=== PATIENT | female | born 1950 | race American Indian/Alaskan Native ===

== ENCOUNTER 2020-08-06 09:54 | Outpatient (REF) | payer MEDICARE, SELFPAY ==
[2020-08-06 14:44] LABS: Free T4 (Free Thyroxine) 1.14 ng/dL (0.71-1.85); Thyroid Stimulating Hormone 0.04 uIU/mL (0.32-4.0)
== END 2020-08-06 09:55 | disposition home or self-care (01) ==
LOC: HO.10HDL 09:54
PROVIDERS: Visit Provider Internal Medicine Endocrinology, Diabetes & Metabolism
DX: E89.0 Postprocedural hypothyroidism (principal)
CPT/HCPCS: 84439; 84443

== ENCOUNTER 2020-10-27 08:00 | Outpatient (REF) | payer MEDICARE, SELFPAY ==
[2020-10-27 10:57] LABS: Alanine Aminotransferase 22 U/L (0-31); Albumin Level 3.9 g/dL (3.5-5.0); Alkaline Phosphatase 65 U/L (39-117); Anion Gap 11 (12-20); Aspartate Amino Transferase 20 U/L (5-31); Bilirubin Total 0.7 mg/dL (0.0-1.0); Blood Urea Nitrogen 16 mg/dL (9-16); Calcium 8.9 mg/dL (8.4-10.2); Carbon Dioxide 31 mmol/L (22-29); Chloride 106 mmol/L (96-108); Estimated Glomerular Filt Rate > 60; Glucose Fasting 87 mg/dL (60-99); Potassium 4.1 mmol/L (3.3-5.1); Sodium 144 mmol/L (135-145); Total Protein 6.6 g/dL (6.5-8.0)
[2020-10-27 11:07] LABS: Free T4 (Free Thyroxine) 1.01 ng/dL (0.71-1.85); Thyroid Stimulating Hormone 0.22 uIU/mL (0.32-4.0)
[2020-10-27 11:18] LABS: Vitamin D 25-OH Total 36.2 ng/mL (>30)
[2020-11-02 08:16] LABS: N-Telopeptide 14 (see note); NTXCreaRU 27 mg/dL (20-275)
== END 2020-10-27 08:01 | disposition home or self-care (01) ==
LOC: HO.10HDL 08:00
PROVIDERS: Visit Provider Internal Medicine Endocrinology, Diabetes & Metabolism
DX: M81.0 Age-related osteoporosis without current pathological fracture (principal); E89.0 Postprocedural hypothyroidism; E21.0 Primary hyperparathyroidism; Z79.899 Other long term (current) drug therapy
CPT/HCPCS: 36415; 80053; 82306; 82523; 84439; 84443; 96402; 99212; J0897

== ENCOUNTER 2020-12-30 09:24 | Emergency (ER) | payer MEDICARE, SELFPAY ==
--- NOTE | ~2020-12-30 | XR_ITS ---
EXAMINATION: XR CHEST CLINICAL INFORMATION: Shortness of breath COMPARISON: Chest radiographs 08/03/2018, 07/25/2018 TECHNIQUE: Portable upright AP view of the chest was obtained. FINDINGS: The lungs are clear. There is no airspace consolidation or definite groundglass opacity. Mild coarsening bronchiolar markings lower zones similar to prior studies. The costophrenic sulci are clear. The heart is normal in size. The vascularity is normal. The hilar and mediastinal contours are unremarkable. Again, there is mild dextrocurvature thoracic spine and some degenerative changes spine. XR/XR chest 1V IMPRESSION: Unremarkable examination.
[2020-12-30 09:29] VITALS: BP 152/78; PULSE 71; RESP 18; TEMP 36.7; O2SAT 97; BMI 28.6
--- NOTE | 2020-12-30 09:33 | ED.ASTHMA ---
HPI - Asthma General Chief Complaint: Asthma Stated Complaint: SOB Time Seen by Provider: 12/30/20 09:33 Source: patient and RN notes reviewed Mode of arrival: ambulatory Limitations: no limitations History of Present Illness HPI Narrative: A 70-year-old female with a past medical history of asthma presenting to the ED with complaints of shortness of breath. Patient with a history of hypothyroidism and osteoporosis. She has a history of asthma, on Symbicort twice a day, rescue inhaler as well as nebulizers. Her symptoms started 2 days ago. Patient tried nebulizers without affect. Patient denies fever or chills. Patient received her 1st COVID vaccine 1 month ago and is awaiting for her 2nd vaccine at the end of the month. Patient reports that she has not been around anyone sick. Reports productive cough with white sputum. Occasional chest pain with deep cough. Denies any change in household products or items. Denies any seasonal allergy. Related Data Home Medications Medication Instructions Recorded Confirmed acetaminophen 500 mg tablet 1,000 mg PO Q6H PRN 10/27/20 10/27/20 albuterol sulfate mg INHALATION Q6H PRN 10/27/20 10/27/20 atorvastatin 40 mg tablet 40 mg PO DAILY 10/27/20 10/27/20 budesonide-formoterol HFA 160 2 puff PO BID 10/27/20 10/27/20 mcg-4.5 mcg/actuation aerosol inhaler cetirizine 10 mg tablet 10 mg PO DAILY PRN 10/27/20 10/27/20 citalopram 10 mg tablet 10 mg PO DAILY 10/27/20 10/27/20 clobetasol 0.05 % topical ointment g TOPICAL DAILY 10/27/20 10/27/20 famotidine 20 mg tablet 20 mg PO DAILY PRN 10/27/20 10/27/20 mirtazapine 30 mg tablet 30 mg PO BEDTIME 10/27/20 10/27/20 montelukast 10 mg tablet 10 mg PO DAILY 10/27/20 10/27/20 multivitamin 1 tab PO DAILY 10/27/20 10/27/20 naproxen 500 mg tablet 500 mg PO BID PRN 10/27/20 10/27/20 zolpidem 10 mg tablet 10 mg PO BEDTIME PRN 02/03/21 02/03/21 Previous Rx's Medication Instructions Recorded levothyroxine 75 mcg tablet 75 mcg PO QAM 90 Days #90 tab 10/27/20 azithromycin 250 mg PO DAILY 4 Days #4 tab 12/30/20 prednisone 40 mg PO DAILY 5 Days #10 tab 12/30/20 Allergies Allergy/AdvReac Type Severity Reaction Status Date / Time morphine [MORPHINE] Allergy Unknown RASH Unverified 06/10/20 16:59 Review of Systems Review of Systems: Constitutional : No Weight loss, No Fever, No Chills, No Night Sweats, No Fatigue, No Malaise ENT/Mouth : No Hearing loss, No Ear Pain, No Nasal Congestion, No Sinus Pain, No Hoarseness, No sore throat, No Rhinorrhea, No Swallowing Difficulty Eyes: No Eye Pain, No Swelling, No Redness, No Foreign Body, No Discharge, No Vision Changes Cardiovascular : No Chest Pain, No SOB, No Dyspnea on Exertion, No Orthopnea, No Edema, No Palpitations Respiratory : pos Cough, white Sputum, Wheezing, No Smoke Exposure, Mild Dyspnea Gastrointestinal : No Nausea, No Vomiting, No Diarrhea, No Constipation, No abdominal Pain, No Hematochezia, No Melena Genitourinary : no irregular bleeding, No Dysuria, No Urinary Frequency, No Hematuria, No Urinary Incontinence, No Urgency, No Flank Pain, No Urinary Flow Changes, No Hesitancy Musculoskeletal : No joint pain, No Myalgias, No Joint Swelling Skin : No Skin Lesions, No rash Neuro : No Weakness, No Numbness, No Paresthesias, No Loss of Consciousness, No Dizziness, No Headache Psych : No Anxiety/Panic, No Depression, No SI/HI/AH/VH, No Social Issues, Heme/Lymph: No Bruising, No Bleeding,No Lymphadenopathy Endocrine : No Polyuria, No Polydipsia, No Temperature Intolerance REPLACED BY [facility] Past Medical History Medical History (Updated 12/30/20 @ 12:12 by GILMER Kaur) Postablative hypothyroidism Primary hyperparathyroidism Surgical History (Updated 10/27/20 @ 09:59 by Belen Hopkins LPN) History of carpal tunnel release of both wrists Hx of cataract removal with insertion of prosthetic lens Hx of cholecystectomy Hx of hysterectomy Hx of lithotripsy Social History Social History (Updated 10/27/20 @ 09:59 by Belen J [place], PERFORMANCE INSTRUCTOR) Alcohol intake: never Smoking Status: Never smoker Use of substances other than those prescribed or required for medical reasons: No Advance Directives: No Advance Directives Information Provided: No Physical Exam Vital Signs: Vital Signs: Last Vital Signs Temp 98.4 F 12/30/20 10:08 Pulse 71 12/30/20 11:23 Resp 18 12/30/20 10:08 BP 129/59 L 12/30/20 10:08 Pulse Ox 94 12/30/20 10:08 Body Mass Index 28.6 Const: General: cooperative, healthy appearing and comfortable Nutritional Appearance: average body habitus Orientation/consciousness: patient oriented x3 Limitations: no limitations HENMT: Head: Yes normal to inspection Ears: hearing grossly normal bilaterally General nose exam: Normal external nose present Face and sinus: Yes normal facial exam Mouth: Normal oral and palatal mucosa present Throat: Yes posterior oropharynx normal Eyes: General: appearance normal, both eyes and all related structures Eyelids: Yes eyelids normal Conjunctivae: conjunctivae normal Sclerae: sclerae normal Pupils: Equal, round and reactive pupils present Neck: Neck: Yes normal visual inspection, Yes full ROM, Yes no lymphadenopathy, Yes trachea midline and Yes supple Thyroid: Thyroid normal Lymphatic: no lymphadenopathy noted Chest: Chest palpation & inspection: normal inspection of the chest Resp: Effort & Inspection: normal respiratory effort, able to speak in complete sentences and no respiratory distress Auscultation: wheezes (Bilateral throughout) Cardio: Jugular venous distension: no JVD Rate: regular rate Rhythm: regular rhythm Heart sounds: S1 normal heart sound present, S2 normal heart sound present, no gallops, no murmurs and no rubs Peripheral pulses: Peripheral pulses 2+ throughout GI: Inspection: Yes normal to inspection and No distended Palpation (GI): No hepatosplenomegaly present and No Rebound tenderness present Percussion: Yes normal to percussion Auscultation: normal bowel sounds Back/Spine/Pelvis: Cervical Spine: cervical ROM normal and No cervical muscular tenderness Thoracic/Lumbar Spine: thoracic and lumbar spine normal to inspection Skin: General skin exam: no rashes or lesions noted, elasticity normal and turgor normal Neuro: General: patient oriented x3 Cranial nerves: Yes Equal, round and reactive pupils present Extrem: General: Yes normal to inspection, Yes full ROM and Yes capillary refill normal Psych: Appearance: grossly normal Mental Status: mental status grossly normal Speech and movement: Normal speech and movement present Affect: normal affect Attitude: cooperative Thought process: Normal thought process present Insight: Good insight present (Psych) Course Course Course Narrative: 0945 AM. 70-year-old female examined by me at the bedside. Mild respiratory distress with expiratory wheeze. Productive cough with white sputum. Patient has a history of asthma. Reports that her symptoms have been going on for 2 days, no improvement after p.r.n. nebulizer. Complaints of chest pain with cough. I will order CBC, BMP, chest x-ray, Solu-Medrol and updraft. Reevaluation(s) Time: 10:16 Reevaluation #2: Patient reports to be feeling a little better. Mild right lower low wheeze. Will order another albuterol updraft. Chest x-ray unremarkable. Negative for leukocytosis. Lab work reviewed. Time: 11:41 Reevaluation #3: Patient re-evaluated at the bedside. Reports to be feeling much better. Lung sounds clear. Screen for influenza type A and B, RSV, COVID all negative. Patient wants to go home. Will start her on Z-Lux and prednisone. Patient is agreeable to plan of care. MDM - Asthma Lab Data Result diagrams: 12/30/20 10:22 12/30/20 10:22 Labs: Lab Results 12/30/20 12/30/20 12/30/20 Range/Units 10:22 10:22 10:22 WBC 5.5 (4.8-10.8) X10*3/uL RBC 3.70 L (4.20-5.50) X10*6/uL Hgb 12.1 (12.0-16.0) g/dl Hct 36.9 L (37-47) % MCV 99.7 H (80-98) fL MCH 32.7 (27.0-33.0) pg MCHC 32.8 (31.0-35.0) g/dl RDW 13.9 (11.0-16.0) % Plt Count 217 (160-400) X10*3/uL MPV 10.1 (9.4-12.3) fL Immature Gran % (Auto) 0.2 (0.0-0.4) % Neut % (Auto) 50.1 (45-73) % Lymph % (Auto) 33.8 (20-40) % [place] % (Auto) 7.7 (2-11) % Eos % (Auto) 7.5 H (0-4) % Baso % (Auto) 0.7 (0-2) % Lymph # (Auto) 1.9 (1.2-4.9) X10*3/uL [place] # (Auto) 0.4 (0.1-1.2) X10*3/uL Eos # (Auto) 0.4 (0.0-0.4) X10*3/uL Baso # (Auto) 0.0 (0.0-0.2) X10*3/uL Abs Immat Gran (auto) 0.01 (0.00-0.03) X10*3/uL Absolute Neuts (auto) 2.7 (2.0-8.3) X10*3/uL Absolute Nucleated RBC 0.000 (0.0-0.012) X10*3/uL Nucleated RBC % (auto) 0.0 (0.0-0.2) /100WBC Hold Blue Top SEE NOTE Sodium 145 (135-145) mmol/L Potassium 4.3 (3.3-5.1) mmol/L Chloride 109 H (96-108) mmol/L Carbon Dioxide 30 H (22-29) mmol/L Anion Gap 10 L (12-20) BUN 14 (9-16) mg/dL Creatinine 0.79 (0.5-1.4) mg/dL Estim Creat Clear Calc 52.4 Estimated GFR > 60 Random Glucose 95 (60-115) mg/dL Calcium 9.5 D (8.4-10.2) mg/dL Troponin I High Sens (<3.5-17.0) ng/L Coronavirus (PCR) (Negative) Influenza Type A (PCR) (Negative) Influenza Type B (PCR) (Negative) RSV RNA Qual (PCR) (Negative) 12/30/20 12/30/20 Range/Units 10:22 10:29 WBC (4.8-10.8) X10*3/uL RBC (4.20-5.50) X10*6/uL Hgb (12.0-16.0) g/dl Hct (37-47) % MCV (80-98) fL MCH (27.0-33.0) pg MCHC (31.0-35.0) g/dl RDW (11.0-16.0) % Plt Count (160-400) X10*3/uL MPV (9.4-12.3) fL Immature Gran % (Auto) (0.0-0.4) % Neut % (Auto) (45-73) % Lymph % (Auto) (20-40) % [place] % (Auto) (2-11) % Eos % (Auto) (0-4) % Baso % (Auto) (0-2) % Lymph # (Auto) (1.2-4.9) X10*3/uL [place] # (Auto) (0.1-1.2) X10*3/uL Eos # (Auto) (0.0-0.4) X10*3/uL Baso # (Auto) (0.0-0.2) X10*3/uL Abs Immat Gran (auto) (0.00-0.03) X10*3/uL Absolute Neuts (auto) (2.0-8.3) X10*3/uL Absolute Nucleated RBC (0.0-0.012) X10*3/uL Nucleated RBC % (auto) (0.0-0.2) /100WBC Hold Blue Top Sodium (135-145) mmol/L Potassium (3.3-5.1) mmol/L Chloride (96-108) mmol/L Carbon Dioxide (22-29) mmol/L Anion Gap (12-20) BUN (9-16) mg/dL Creatinine (0.5-1.4) mg/dL Estim Creat Clear Calc Estimated GFR Random Glucose (60-115) mg/dL Calcium (8.4-10.2) mg/dL Troponin I High Sens < 3.5 (<3.5-17.0) ng/L Coronavirus (PCR) NEGATIVE (Negative) Influenza Type A (PCR) NEGATIVE (Negative) Influenza Type B (PCR) NEGATIVE (Negative) RSV RNA Qual (PCR) NEGATIVE (Negative) Discharge Plan Discharge Clinical Impression: Acute bronchospasm, Bronchitis with bronchospasm Asthma with acute exacerbation Qualifiers: Asthma severity: mild Asthma persistence: unspecified Qualified Code(s): J45.901 - Unspecified asthma with (acute) exacerbation Patient Disposition: Home, Self-Care Instructions: Asthma (ED), Acute Bronchitis (ED), Bronchospasm (ED) Prescriptions: New prednisone 20 mg tablet 40 mg PO DAILY 5 Days Qty: 10 RF: 0 azithromycin 250 mg tablet 250 mg PO DAILY 4 Days Qty: 4 RF: 0 No Action zolpidem 10 mg tablet 10 mg PO BEDTIME PRNRF: 0 mirtazapine 30 mg tablet 30 mg PO BEDTIME RF: 0 naproxen 500 mg tablet 500 mg PO BID PRN (Reason: pain) RF: 0 famotidine 20 mg tablet 20 mg PO DAILY PRNRF: 0 citalopram 10 mg tablet 10 mg PO DAILY RF: 0 albuterol sulfate 2.5 mg /3 mL (0.083 %) solution for nebulization inhalation Q6H PRN (Reason: asthma) RF: 0 atorvastatin 40 mg tablet 40 mg PO DAILY RF: 0 montelukast 10 mg tablet 10 mg PO DAILY RF: 0 cetirizine 10 mg tablet 10 mg PO DAILY PRNRF: 0 multivitamin Tablet 1 tab PO DAILY RF: 0 acetaminophen 500 mg tablet 1,000 mg PO Q6H PRN (Reason: pain) RF: 0 budesonide-formoterol 160-4.5 mcg/actuation HFA aerosol inhaler 2 puff PO BID RF: 0 clobetasol 0.05 % ointment topical DAILY RF: 0 levothyroxine 75 mcg tablet 75 mcg PO QAM 90 Days Qty: 90 RF: 2 Referrals: Cliff Harman NP [Primary Care Provider] - 2 days Interventions: ED Discharge Assessment Last Done: 12/30/20 12:14 Discharge Date/Time: 12/30/20 12:17 Print Language: Serbian
--- NOTE | 2020-12-30 09:42 | ECG_ITS ---
Test Reason : ASTHMA Blood Pressure : / mmHG Vent. Rate : 065 BPM Atrial Rate : 065 BPM P-R Int : 140 ms QRS Dur : 088 ms QT Int : 394 ms P-R-T Axes : 046 005 018 degrees QTc Int : 409 ms Normal sinus rhythm Nonspecific T wave abnormality Abnormal ECG When compared with ECG of 03-AUG-2018 11:00, No significant change was found Referred By: Kaylah Pat Electronically Signed By:MELE ROEILLY
[2020-12-30] MEDS: Albuterol Sulfate (0.083%) 2.5 MG/3 ML VIAL.NEB 5 MG INHALE ×2 (10:07→11:23)
[2020-12-30 10:08] VITALS: BP 129/59; PULSE 62; PULSE 66; RESP 18; TEMP 36.9; O2SAT 94; O2SAT 97
[2020-12-30 10:28] LABS: MANUAL DIFF FLAG NO
[2020-12-30 10:31] LABS: Basophils Percent Auto 0.7 % (0-2); Eosinophils Absolute Auto 0.4 X10*3/uL (0.0-0.4); Eosinophils Percent Auto 7.5 % (0-4); Hematocrit 36.9 % (37-47); Hemoglobin 12.1 g/dl (12.0-16.0); Imm Gran Abs Auto 0.01 X10*3/uL (0.00-0.03); Imm Gran Pct Auto 0.2 % (0.0-0.4); Lymphocytes Absolute Auto 1.9 X10*3/uL (1.2-4.9); Lymphocytes Percent Auto 33.8 % (20-40); Mean Corpuscular HGB Conc 32.8 g/dl (31.0-35.0); Mean Corpuscular Hemoglobin 32.7 pg (27.0-33.0); Mean Corpuscular Volume 99.7 fL (80-98); Mean Platelet Volume 10.1 fL (9.4-12.3); Monocytes Absolute Auto 0.4 X10*3/uL (0.1-1.2); Monocytes Percent Auto 7.7 % (2-11); Neutrophils Absolute Auto 2.7 X10*3/uL (2.0-8.3); Neutrophils Percent Auto 50.1 % (45-73); Platelet Count 217 X10*3/uL (160-400); Red Cell Distribution Width 13.9 % (11.0-16.0); White Blood Count 5.5 X10*3/uL (4.8-10.8)
[2020-12-30] MEDS: methylPREDNISolone Sod Succ 125 MG/2 ML VIAL IVPUSH (10:35)
[2020-12-30 10:53] LABS: Anion Gap 10 (12-20); Blood Urea Nitrogen 14 mg/dL (9-16); Calcium 9.5 mg/dL (8.4-10.2); Carbon Dioxide 30 mmol/L (22-29); Chloride 109 mmol/L (96-108); Creatinine Clr Calc Pharmacy 52.4; Estimated Glomerular Filt Rate > 60; Glucose Random 95 mg/dL (60-115); Potassium 4.3 mmol/L (3.3-5.1); Sodium 145 mmol/L (135-145)
[2020-12-30 10:56] LABS: Troponin-I High Sensitivity < 3.5 ng/L (<3.5-17.0)
[2020-12-30 11:23] VITALS: PULSE 71; O2SAT 93
[2020-12-30 11:42] LABS: Influenza A PCR NEGATIVE (Negative); Influenza B PCR NEGATIVE (Negative); Resp Syncy Virus RNA Qual PCR NEGATIVE (Negative); SARS COV2 PCR INHOUSE NEGATIVE (Negative)
[2020-12-30] MEDS: Azithromycin 500 MG TABLET PO (12:06)
--- NOTE | 2020-12-30 12:08 | PC.NURSE ---
s/p ambulation o2 sat ra 95%
== END 2020-12-30 12:17 | disposition home or self-care (01) ==
PROVIDERS: Nurse Practitioner Family; Emergency Provider Emergency Medicine; PCP Nurse Practitioner Family
DX: J20.9 Acute bronchitis, unspecified (principal); J45.30 Mild persistent asthma, uncomplicated; R07.89 Other chest pain; Z20.822 Contact with and (suspected) exposure to COVID-19
CPT/HCPCS: 0241U; 36415; 71045; 80048; 84484; 85025; 93005; 94640; 96374; 99284; J2930

== ENCOUNTER 2021-03-03 10:15 | Outpatient (REF) | payer MEDICARE, SELFPAY ==
[2021-03-03 12:33] LABS: Alanine Aminotransferase 22 U/L (0-31); Albumin Level 4.2 g/dL (3.5-5.0); Alkaline Phosphatase 68 U/L (39-117); Aspartate Amino Transferase 20 U/L (5-31); Bilirubin Total 0.7 mg/dL (0.0-1.0); Blood Urea Nitrogen 15 mg/dL (9-16); Calcium 9.1 mg/dL (8.4-10.2); Estimated Glomerular Filt Rate > 60; Glucose Random 89 mg/dL (60-115); Total Protein 6.9 g/dL (6.5-8.0)
[2021-03-03 12:54] LABS: Free T4 (Free Thyroxine) 1.12 ng/dL (0.71-1.85); Thyroid Stimulating Hormone 0.04 uIU/mL (0.32-4.0); Vitamin D 25-OH Total 40.7 ng/mL (>30)
[2021-03-03 13:27] LABS: Anion Gap 13 (12-20); Carbon Dioxide 31 mmol/L (22-29); Chloride 106 mmol/L (96-108); Potassium 4.5 mmol/L (3.3-5.1); Sodium 145 mmol/L (135-145)
[2021-03-04 09:27] LABS: Calcium (PTHI) 9.5 mg/dL (8.6-10.4); PTHI 27 pg/mL (14-64)
[2021-03-06 18:11] LABS: Alkaline Phosphatase Bone 7.5 mcg/L (5.6-29.0)
[2021-03-08 07:37] LABS: N-Telopeptide 20 (see note); NTXCreaRU 124 mg/dL (20-275)
== END 2021-03-03 10:16 | disposition home or self-care (01) ==
LOC: HO.LAB 10:15
PROVIDERS: PCP Nurse Practitioner Family; Visit Provider Internal Medicine Endocrinology, Diabetes & Metabolism
DX: M81.0 Age-related osteoporosis without current pathological fracture (principal); E21.0 Primary hyperparathyroidism; E89.0 Postprocedural hypothyroidism
CPT/HCPCS: 36415; 80053; 82306; 82340; 82523; 83735; 83970; 84075; 84100; 84439; 84443; 99212

== ENCOUNTER 2021-03-05 10:13 | Outpatient (REF) | payer MEDICARE, SELFPAY ==
[2021-03-05 11:01] LABS: Total Volume 24 Hour Urine 1350 mL
[2021-03-05 11:10] LABS: Creatinine, 24Hr Urine 1.3 G/Day (1.0-2.0); Creatinine, mg/dL 92.72
== END 2021-03-05 10:14 | disposition home or self-care (01) ==
LOC: HO.LNP 10:13
PROVIDERS: Visit Provider Internal Medicine Endocrinology, Diabetes & Metabolism
DX: M81.0 Age-related osteoporosis without current pathological fracture (principal)
CPT/HCPCS: 82570

== ENCOUNTER 2021-05-10 09:34 | Outpatient (REF) | payer MEDICARE, SELFPAY ==
--- NOTE | ~2021-05-10 | MM_ITS ---
EXAMINATION: BONE DENSITOMETRY CLINICAL INDICATION: Age-related osteoporosis without current pathological fracture. COMPARISON: Previous BD dated 05/09/2019 and baseline BD dated 12/22/2009. This is the patient's baseline examination for the forearm radius 33%. TECHNIQUE: Using a [employer] DXA System (software version: 13.1) manufactured by [employer], dual-energy x-ray absorptiometry was performed of the lumbar spine and left forearm radius 33%. The images are of good technical quality. Summary results are attached. FINDINGS: AP SPINE L1-L4: Current: BMD 0.768 g/cm2, Z-score -1.9, T-score -3.4, osteoporosis, 4.5% increase from previous, 5.4% decrease from baseline (<5% change is not significant). Prior: BMD 0.735 g/cm2. Baseline: BMD 0.812 g/cm2. LEFT FEMUR, NECK: Current: BMD 0.687 g/cm2, Z-score -0.9, T-score -2.5, osteoporosis. Prior: BMD 0.658 g/cm2. Baseline: BMD 0.707 g/cm2. LEFT FEMUR, TOTAL: Current: BMD 0.752 g/cm2, Z-score -0.6, T-score -2.0, osteopenia, 4.6% increase from previous, 8.8% decrease from baseline (<5% change is not significant). Prior: BMD 0.719 g/cm2. Baseline: BMD 0.825 g/cm2. LEFT FOREARM RADIUS 33%: BMD 0.586 g/cm2, Z-score -1.3, T-score -3.3, osteoporosis. Prior: Not previously measured. IDENTIFIED RISK FACTORS: Rheumatoid arthritis, osteoporosis, hyperparathyroidism, height loss, low calcium intake, family history (parental hip fracture), history of fracture (adult). Early menopause, secondary osteoporosis, hysterectomy, bilateral oophorectomy. HISTORY OF FRACTURE: Other. MEDICATIONS: Calcium or multivitamin. MM/XR DEXA appendicular skeleton IMPRESSION: 1. DIAGNOSIS: Osteoporosis based on the lowest T-score value of -3.4 in the lumbar spine applying World Health Organization criteria. 2. 10-YEAR FRACTURE RISK PREDICTION, FRAX: Major osteoporotic fracture (clinical spine, forearm, hip or shoulder) 22.6%. Hip fracture 10.5%. 3. Treatment Recommendations: NOF guidelines recommend consideration for treatment in postmenopausal women and men age 50 and older presenting with the following: -A hip or vertebral (clinical or morphometric) fracture. -T-score less than or equal to -2.5 at the femoral neck or spine after appropriate evaluation to exclude secondary causes. -Low bone mass at the hip or spine and a 10-year fracture probability by FRAX of greater than or equal to 3% for hip fracture or greater than or equal to 20% for major osteoporotic fracture based on the [place] adapted WHO algorithm. 4. Other Recommendations: All treatment decisions require clinical judgment and consideration of individual patient factors, including patient preferences, comorbidities, previous drug use, risk factors not captured in the FRAX model (e.g. frailty, falls, vitamin D deficiency, increased bone turnover, interval significant decline in bone density) and possible under or overestimation of fracture risk by FRAX. Additional medical evaluation for secondary cause of low bone mineral density may be appropriate. FUTURE SCAN RECOMMENDATION: People with diagnosed cases of osteoporosis or at high risk for fracture should have regular bone mineral density tests. For patients eligible for Medicare, routine testing is allowed once every 2 years. The testing frequency can be increased to one year for patients who have rapidly progressing disease, those who are receiving or discontinuing medical therapy to restore bone mass, or have additional risk factors.
== END 2021-05-10 09:35 | disposition home or self-care (01) ==
LOC: HO.MAMMO 09:34
PROVIDERS: Visit Provider Internal Medicine Endocrinology, Diabetes & Metabolism
DX: Z13.820 Encounter for screening for osteoporosis (principal); M81.0 Age-related osteoporosis without current pathological fracture; M06.9 Rheumatoid arthritis, unspecified; E21.3 Hyperparathyroidism, unspecified; Z87.81 Personal history of (healed) traumatic fracture; Z90.722 Acquired absence of ovaries, bilateral; Z79.899 Other long term (current) drug therapy
CPT/HCPCS: 77081

== ENCOUNTER → 2021-05-23 10:43 | Outpatient (BNVA) | payer MEDICARE, SELFPAY | PROVIDERS: Visit Provider Internal Medicine | DX: M81.0 Age-related osteoporosis without current pathological fracture (principal); E21.0 Primary hyperparathyroidism; E05.90 Thyrotoxicosis, unspecified without thyrotoxic crisis or storm; E55.9 Vitamin D deficiency, unspecified; E89.0 Postprocedural hypothyroidism; Z88.5 Allergy status to narcotic agent; Z79.899 Other long term (current) drug therapy | CPT/HCPCS: 99212 ==

== ENCOUNTER 2021-05-23 11:30 | Outpatient (REF) | payer MEDICARE, SELFPAY ==
[2021-05-23 14:06] LABS: Alanine Aminotransferase 25 U/L (0-31); Albumin Level 4.4 g/dL (3.5-5.0); Alkaline Phosphatase 87 U/L (39-117); Anion Gap 15 (12-20); Aspartate Amino Transferase 23 U/L (5-31); Blood Urea Nitrogen 13 mg/dL (9-16); Calcium 9.7 mg/dL (8.4-10.2); Carbon Dioxide 30 mmol/L (22-29); Chloride 103 mmol/L (96-108); Estimated Glomerular Filt Rate > 60; Glucose Random 88 mg/dL (60-115); Phosphorus 3.4 mg/dL (2.7-4.5); Potassium 4.3 mmol/L (3.3-5.1); Sodium 144 mmol/L (135-145); Total Protein 7.4 g/dL (6.5-8.0)
[2021-05-23 14:27] LABS: Free T4 (Free Thyroxine) 0.86 ng/dL (0.71-1.85); Thyroid Stimulating Hormone 1.21 uIU/mL (0.32-4.0)
[2021-05-24 16:55] LABS: Calcium, Ionized 5.1 mg/dL (4.8-5.6)
[2021-05-24 21:46] LABS: Prot Elec - Albumin 3.9 g/dL (3.8-4.8); Prot Elec - Alpha1 0.3 g/dL (0.2-0.3); Prot Elec - Alpha2 0.9 g/dL (0.5-0.9); Prot Elec - Beta 1 0.5 g/dL (0.4-0.6); Prot Elec - Beta 2 0.5 g/dL (0.2-0.5); Prot Elec - Total Protein 7.2 g/dL (6.1-8.1)
[2021-05-26 14:06] LABS: Alkaline Phosphatase Bone 9.8 mcg/L (5.6-29.0)
[2021-05-26 16:56] LABS: PTHI 17 pg/mL (14-64)
== END 2021-05-23 11:31 | disposition home or self-care (01) ==
LOC: HO.10HDL 11:30
PROVIDERS: Visit Provider Internal Medicine
DX: M81.0 Age-related osteoporosis without current pathological fracture (principal)
CPT/HCPCS: 36415; 80053; 82330; 83970; 84075; 84100; 84165; 84439; 84443

== ENCOUNTER 2021-05-24 19:24 | Emergency (ER) | payer MEDICARE, SELFPAY ==
[2021-05-24 19:30] VITALS: BP 139/87; PULSE 65; RESP 16; TEMP 36.6; O2SAT 98; BMI 30.1
--- NOTE | 2021-05-24 20:32 | ED_ITS ---
HPI - General Adult General Chief complaint: General Medical Stated complaint: dizziness, high bp Time Seen by Provider: 05/24/21 20:32 Source: patient and family Mode of arrival: ambulatory Limitations: no limitations History of Present Illness HPI narrative: Patient With history of hiatal hernia status post cholecystectomy came to the ER for upper abdominal pain for last few days patient does get similar pain to 3 times a year on PPI without much relief feel nauseated had previous endoscopy which showed hiatal hernia and gastritis. Patient checked her sugar was 72 felt dizzy at home also patient complaining of diarrhea 3-4 times a day since yesterday Related Data Home Medications Medication Instructions Recorded Confirmed acetaminophen 500 mg tablet 1,000 mg PO Q6H PRN 10/27/20 05/23/21 albuterol sulfate mg INHALATION Q6H PRN 10/27/20 05/23/21 atorvastatin 40 mg tablet 40 mg PO DAILY 10/27/20 05/23/21 budesonide-formoterol HFA 160 2 puff PO BID 10/27/20 05/23/21 mcg-4.5 mcg/actuation aerosol inhaler cetirizine 10 mg tablet 10 mg PO DAILY PRN 10/27/20 05/23/21 citalopram 10 mg tablet 10 mg PO DAILY 10/27/20 05/23/21 clobetasol 0.05 % topical ointment g TOPICAL DAILY 10/27/20 05/23/21 famotidine 20 mg tablet 20 mg PO DAILY PRN 10/27/20 05/23/21 mirtazapine 30 mg tablet 30 mg PO BEDTIME 10/27/20 05/23/21 montelukast 10 mg tablet 10 mg PO DAILY 10/27/20 05/23/21 multivitamin 1 tab PO DAILY 10/27/20 05/23/21 naproxen 500 mg tablet 500 mg PO BID PRN 10/27/20 05/23/21 zolpidem 10 mg tablet 10 mg PO BEDTIME PRN 10/27/20 05/23/21 Previous Rx's Medication Instructions Recorded calcium citrate 500 mg PO BID 90 Days #360 tab 03/03/21 levothyroxine 50 mcg tablet 50 mcg PO DAILY 90 Days #90 tab 03/03/21 sucralfate 1 gram tablet 1 g PO TID #60 tab 05/24/21 Allergies Allergy/AdvReac Type Severity Reaction Status Date / Time morphine [MORPHINE] Allergy Unknown RASH Verified 05/23/21 11:08 Review of Systems Review of Systems: Yes all other systems are reviewed and are negative [facility] Past Medical History Medical History Hyperthyroidism Postablative hypothyroidism Primary hyperparathyroidism Vitamin D deficiency Surgical History History of carpal tunnel release of both wrists Hx of cataract removal with insertion of prosthetic lens Hx of cholecystectomy Hx of hysterectomy Hx of lithotripsy S/P subtotal parathyroidectomy Family History Family History Father No problems noted. Mother No problems noted. Social History Social History Alcohol intake: never Patient Tobacco Use Status: Never used Tobacco Advance Directives: No Advance Directives Information Provided: No Physical Exam Vital Signs: Vital Signs: Last Vital Signs Temp 98.5 F 05/24/21 20:34 Pulse 63 05/24/21 22:00 Resp 18 05/24/21 22:00 BP 149/81 H 05/24/21 20:34 Pulse Ox 96 05/24/21 22:00 Body Mass Index 30.1 Appearance: Alert. Oriented X3. No acute distress. Eyes: PERRLA, No Nystagmus ENT: Pharynx normal. Oral Mucosa moist Neck: Normal inspection. Neck supple. CVS: Normal heart rate and rhythm. Pulses normal. Respiratory: No respiratory distress. Equal air entry bilateral, no wheezing/rales/rhonchi Abdomen: Soft mild epigastric tenderness Bowel sounds are present, no mass palpable, no CVA tenderness Skin: Skin warm and dry. Normal skin color. Normal skin turgor. Extremities: No lower extremity edema. No calf tenderness Neuro: Oriented X 3. Medical Decision Making MDM Narrative Medical decision making narrative: Patient gastritis with recurrent abdominal pain came with similar pain in the epigastric area with nausea and diarrhea feeling much better now after IV fluids and Pepcid will discharge patient home Lab Data Lab results reviewed: Yes I reviewed the patient's lab results. Result diagrams: 05/24/21 20:46 05/24/21 20:46 Labs: Lab Results 05/24/21 05/24/21 05/24/21 Range/Units 19:38 20:46 20:46 WBC 6.4 (4.8-10.8) X10*3/uL RBC 4.17 L (4.20-5.50) X10*6/uL Hgb 13.4 (12.0-16.0) g/dl Hct 41.0 (37-47) % MCV 98.3 H (80-98) fL MCH 32.1 (27.0-33.0) pg MCHC 32.7 (31.0-35.0) g/dl RDW 14.0 (11.0-16.0) % Plt Count 229 (160-400) X10*3/uL MPV 9.8 (9.4-12.3) fL Immature Gran % (Auto) 0.3 (0.0-0.4) % Neut % (Auto) 53.4 (45-73) % Lymph % (Auto) 32.1 (20-40) % [place] % (Auto) 10.3 (2-11) % Eos % (Auto) 3.4 (0-4) % Baso % (Auto) 0.5 (0-2) % Lymph # (Auto) 2.1 (1.2-4.9) X10*3/uL [place] # (Auto) 0.7 (0.1-1.2) X10*3/uL Eos # (Auto) 0.2 (0.0-0.4) X10*3/uL Baso # (Auto) 0.0 (0.0-0.2) X10*3/uL Abs Immat Gran (auto) 0.02 (0.00-0.03) X10*3/uL Absolute Neuts (auto) 3.4 (2.0-8.3) X10*3/uL Absolute Nucleated RBC 0.000 (0.0-0.012) X10*3/uL Nucleated RBC % (auto) 0.0 (0.0-0.2) /100WBC Sodium 143 (135-145) mmol/L Potassium 4.8 (3.3-5.1) mmol/L Chloride 105 (96-108) mmol/L Carbon Dioxide 29 (22-29) mmol/L Anion Gap 14 (12-20) BUN 18 H (9-16) mg/dL Creatinine 0.89 (0.5-1.4) mg/dL Estim Creat Clear Calc 47.7 Estimated GFR > 60 POC Glucose 80 (60-115) mg/dL Random Glucose 76 (60-115) mg/dL Calcium 9.7 (8.4-10.2) mg/dL Total Bilirubin 0.8 (0.0-1.0) mg/dL AST 34 H D (5-31) U/L ALT 25 (0-31) U/L Alkaline Phosphatase 81 (39-117) U/L Total Protein 7.6 (6.5-8.0) g/dL Albumin 4.3 (3.5-5.0) g/dL Lipase (8-78) U/L Urine Color Urine Appearance Urine pH (5.0-8.0) Ur Specific [place] (1.005-1.025) Urine Protein (NEG-TRACE) MG/DL Urine Glucose (UA) (NEG) MG/DL Urine Ketones (NEG) MG/DL Urine Blood (NEG) Urine Nitrite (NEG) Ur Leukocyte Esterase (NEG) Urine RBC (0) /HPF Urine WBC (0-4) /HPF Ur Squamous Epith Cells /LPF Ur Renal Epithelial Cell /LPF Urine Bacteria /LPF 05/24/21 05/24/21 Range/Units 20:46 22:20 WBC (4.8-10.8) X10*3/uL RBC (4.20-5.50) X10*6/uL Hgb (12.0-16.0) g/dl Hct (37-47) % MCV (80-98) fL MCH (27.0-33.0) pg MCHC (31.0-35.0) g/dl RDW (11.0-16.0) % Plt Count (160-400) X10*3/uL MPV (9.4-12.3) fL Immature Gran % (Auto) (0.0-0.4) % Neut % (Auto) (45-73) % Lymph % (Auto) (20-40) % [place] % (Auto) (2-11) % Eos % (Auto) (0-4) % Baso % (Auto) (0-2) % Lymph # (Auto) (1.2-4.9) X10*3/uL [place] # (Auto) (0.1-1.2) X10*3/uL Eos # (Auto) (0.0-0.4) X10*3/uL Baso # (Auto) (0.0-0.2) X10*3/uL Abs Immat Gran (auto) (0.00-0.03) X10*3/uL Absolute Neuts (auto) (2.0-8.3) X10*3/uL Absolute Nucleated RBC (0.0-0.012) X10*3/uL Nucleated RBC % (auto) (0.0-0.2) /100WBC Sodium (135-145) mmol/L Potassium (3.3-5.1) mmol/L Chloride (96-108) mmol/L Carbon Dioxide (22-29) mmol/L Anion Gap (12-20) BUN (9-16) mg/dL Creatinine (0.5-1.4) mg/dL Estim Creat Clear Calc Estimated GFR POC Glucose (60-115) mg/dL Random Glucose (60-115) mg/dL Calcium (8.4-10.2) mg/dL Total Bilirubin (0.0-1.0) mg/dL AST (5-31) U/L ALT (0-31) U/L Alkaline Phosphatase (39-117) U/L Total Protein (6.5-8.0) g/dL Albumin (3.5-5.0) g/dL Lipase 58 (8-78) U/L Urine Color YELLOW Urine Appearance CLEAR Urine pH 6.0 (5.0-8.0) Ur Specific [place] <= 1.005 (1.005-1.025) Urine Protein NEG (NEG-TRACE) MG/DL Urine Glucose (UA) NEG (NEG) MG/DL Urine Ketones NEG (NEG) MG/DL Urine Blood NEG (NEG) Urine Nitrite NEG (NEG) Ur Leukocyte Esterase TRACE H (NEG) Urine RBC 0-2 (0) /HPF Urine WBC 1-4 (0-4) /HPF Ur Squamous Epith Cells TRACE /LPF Ur Renal Epithelial Cell TRACE /LPF Urine Bacteria TRACE /LPF Discharge Plan Discharge Clinical Impression: Chronic GERD Patient Disposition: Home, Self-Care Instructions: Gastroesophageal Reflux Disease (ED) Additional Instructions: continue taking your medication as prescribed by your PCP and follow up with route returner take sucralfate 1 tab 1 hr prior to meals Prescriptions: New sucralfate 1 gram tablet 1 g PO TID Qty: 60 RF: 0 No Action levothyroxine 50 mcg tablet 50 mcg PO DAILY 90 Days Qty: 90 RF: 3 zolpidem 10 mg tablet 10 mg PO BEDTIME PRNRF: 0 mirtazapine 30 mg tablet 30 mg PO BEDTIME RF: 0 naproxen 500 mg tablet 500 mg PO BID PRN (Reason: pain) RF: 0 famotidine 20 mg tablet 20 mg PO DAILY PRNRF: 0 citalopram 10 mg tablet 10 mg PO DAILY RF: 0 albuterol sulfate 2.5 mg /3 mL (0.083 %) solution for nebulization inhalation Q6H PRN (Reason: asthma) RF: 0 atorvastatin 40 mg tablet 40 mg PO DAILY RF: 0 montelukast 10 mg tablet 10 mg PO DAILY RF: 0 cetirizine 10 mg tablet 10 mg PO DAILY PRNRF: 0 multivitamin Tablet 1 tab PO DAILY RF: 0 acetaminophen 500 mg tablet 1,000 mg PO Q6H PRN (Reason: pain) RF: 0 budesonide-formoterol 160-4.5 mcg/actuation HFA aerosol inhaler 2 puff PO BID RF: 0 clobetasol 0.05 % ointment topical DAILY RF: 0 calcium citrate 250 mg calcium tablet 500 mg PO BID 90 Days Qty: 360 RF: 1 Interventions: ED Discharge Assessment Last Done: 05/24/21 23:12 Discharge Date/Time: 05/24/21 23:13
[2021-05-24 20:34] VITALS: BP 149/81; PULSE 58; RESP 16; TEMP 36.9; O2SAT 96
--- NOTE | 2021-05-24 20:36 | PC.NURSE ---
MD AT BEDSIDE FOR PRIMARY EVAL. PT PRESENTS WITH REPORTS OF ABD PAIN INTERMITTENT SINCE SUNDAY WITH DIARRHEA BEGINNING YESTERDAY. AFEBRILE. REPORTS DIZZINESS AND DRY MOUTH TODAY. VSS. SKIN PWD RESPIRATIONS EVEN UNLABORED. CLOTH WINDER APPLIED, NSR ON MONITOR.
[2021-05-24] MEDS: 0.9 % Sodium Chloride 1,000 ML 999 ML IVCONT (20:47)
[2021-05-24 20:52] LABS: MANUAL DIFF FLAG NO
[2021-05-24 20:53] LABS: Basophils Percent Auto 0.5 % (0-2); Eosinophils Absolute Auto 0.2 X10*3/uL (0.0-0.4); Eosinophils Percent Auto 3.4 % (0-4); Hemoglobin 13.4 g/dl (12.0-16.0); Imm Gran Abs Auto 0.02 X10*3/uL (0.00-0.03); Imm Gran Pct Auto 0.3 % (0.0-0.4); Lymphocytes Absolute Auto 2.1 X10*3/uL (1.2-4.9); Lymphocytes Percent Auto 32.1 % (20-40); Mean Corpuscular HGB Conc 32.7 g/dl (31.0-35.0); Mean Corpuscular Hemoglobin 32.1 pg (27.0-33.0); Mean Corpuscular Volume 98.3 fL (80-98); Mean Platelet Volume 9.8 fL (9.4-12.3); Monocytes Absolute Auto 0.7 X10*3/uL (0.1-1.2); Monocytes Percent Auto 10.3 % (2-11); Neutrophils Absolute Auto 3.4 X10*3/uL (2.0-8.3); Neutrophils Percent Auto 53.4 % (45-73); Platelet Count 229 X10*3/uL (160-400); Red Blood Count 4.17 X10*6/uL (4.20-5.50); White Blood Count 6.4 X10*3/uL (4.8-10.8)
[2021-05-24] MEDS: Famotidine/PF 20 MG/2 ML VIAL IVPUSH (20:54)
[2021-05-24] MEDS: ondansetron HCL 4 MG/2 ML VIAL IVPUSH (20:54)
--- NOTE | 2021-05-24 20:57 | PC.NURSE ---
PT MEDICATED PER MAR, IVF INFUSING WITHOUT DIFFICULTY. AWAITING LAB RESULTS AND FURTHER TESTING.
[2021-05-24 21:08] LABS: Glucose, Whole Blood 80 mg/dL (60-115)
[2021-05-24 21:12] LABS: Lipase 58 U/L (8-78)
[2021-05-24 21:18] LABS: Alanine Aminotransferase 25 U/L (0-31); Albumin Level 4.3 g/dL (3.5-5.0); Alkaline Phosphatase 81 U/L (39-117); Anion Gap 14 (12-20); Aspartate Amino Transferase 34 U/L (5-31); Bilirubin Total 0.8 mg/dL (0.0-1.0); Blood Urea Nitrogen 18 mg/dL (9-16); Calcium 9.7 mg/dL (8.4-10.2); Carbon Dioxide 29 mmol/L (22-29); Chloride 105 mmol/L (96-108); Creatinine Clr Calc Pharmacy 47.7; Estimated Glomerular Filt Rate > 60; Glucose Random 76 mg/dL (60-115); Potassium 4.8 mmol/L (3.3-5.1); Sodium 143 mmol/L (135-145); Total Protein 7.6 g/dL (6.5-8.0)
[2021-05-24 22:00] VITALS: PULSE 63; RESP 18; O2SAT 96
[2021-05-24 22:33] LABS: Glucose Urine UA NEG (NEG); Leukocyte Esterase Urine TRACE (NEG); Nitrite Urine NEG (NEG); Specific Gravity - Urine <= 1.005 (1.005-1.025); UACC Culture Trigger YES; Urine Blood NEG (NEG); Urine Ketones NEG (NEG); Urine Protein NEG (NEG-TRACE)
[2021-05-24 22:35] LABS: Appearance Urine CLEAR; Color Urine YELLOW
[2021-05-24 22:44] LABS: Bacteria Urine TRACE /LPF; RBC Urine 0-2 /HPF (0); Renal Epithelial Cells Urine TRACE /LPF; Squamous Epithelial Cell Urine TRACE /LPF
== END 2021-05-24 23:13 | disposition home or self-care (01) ==
PROVIDERS: Emergency Provider Internal Medicine; PCP Family Medicine
DX: K21.9 Gastro-esophageal reflux disease without esophagitis (principal); R10.10 Upper abdominal pain, unspecified
CPT/HCPCS: 36415; 80053; 81001; 82947; 83690; 85025; 87086; 99284; J2405

== ENCOUNTER 2021-05-25 09:12 | Outpatient (REF) | payer MEDICARE, OTHER, SELFPAY ==
[2021-05-25 09:58] LABS: Creatinine, mg/dL 174.14
[2021-05-25 10:48] LABS: Total Volume 24 Hour Urine 575 mL
[2021-05-27 18:15] LABS: Calcium, 24 Hr Urine 101 mg/24 h; Calcium/Creatinine Ratio 99 mg/g creat (30-275); Creatinine 24Hr Urine 1.02 g/24 h (0.50-2.15)
[2021-05-28 14:51] LABS: N-Telopeptide 14 (see note); NTXCreaRU 108 mg/dL (20-275)
== END 2021-05-25 09:13 | disposition home or self-care (01) ==
LOC: HO.LNP 09:12
PROVIDERS: Visit Provider Internal Medicine
DX: M81.0 Age-related osteoporosis without current pathological fracture (principal); E21.0 Primary hyperparathyroidism; E55.9 Vitamin D deficiency, unspecified
CPT/HCPCS: 82340; 82523; 82570

== ENCOUNTER 2021-06-07 09:06 | Outpatient (REF) | payer MEDICARE, OTHER, SELFPAY ==
--- NOTE | ~2021-06-07 | US_ITS ---
EXAMINATION: US ABDOMEN LIMITED CLINICAL INFORMATION: Abdominal pain. Abdominal wall herniation. COMPARISON: CT abdomen pelvis 10/11/2019. Ultrasound renals 04/13/2019. TECHNIQUE: Real-time imaging of the right lower quadrant abdominal viscera. FINDINGS: There is a small area of focal fascial interruption up to 1.8 seen in the right groin suspicious for early herniation. No fat is visualized in the interruption. US/US abdomen limited IMPRESSION: Focal area of fascial interruption seen in the right groin, likely early herniation but no fat seen within the hernia.
== END 2021-06-07 09:07 | disposition home or self-care (01) ==
LOC: HO.US 09:06
PROVIDERS: PCP Family Medicine; Visit Provider Family Medicine
DX: R10.31 Right lower quadrant pain (principal)
CPT/HCPCS: 76705

== ENCOUNTER 2021-06-28 11:35 | Outpatient (REF) | payer MEDICARE, OTHER, SELFPAY ==
[2021-06-30 14:11] LABS: Transglutaminase Ab IgG <1.0 U/mL; Transglutaminase IgA <1.0 U/mL
== END 2021-06-28 11:36 | disposition home or self-care (01) ==
LOC: HO.LAB 11:35
PROVIDERS: PCP Family Medicine; Visit Provider Nurse Practitioner Family
DX: R14.0 Abdominal distension (gaseous) (principal); R10.11 Right upper quadrant pain; K21.9 Gastro-esophageal reflux disease without esophagitis; K59.04 Chronic idiopathic constipation; Z79.899 Other long term (current) drug therapy
CPT/HCPCS: 36415; 83516; 99202

== ENCOUNTER 2021-06-29 14:34 | Outpatient (REF) | payer MEDICARE, OTHER, SELFPAY | END 2021-06-29 14:35 | disposition home or self-care (01) | LOC: HO.LNP 14:34 | PROVIDERS: Visit Provider Nurse Practitioner Family | DX: K21.9 Gastro-esophageal reflux disease without esophagitis (principal) | CPT/HCPCS: 87338 ==

== ENCOUNTER 2021-07-16 11:10 | Emergency (ER) | payer MEDICARE, OTHER, SELFPAY ==
[2021-07-16] VITALS (7 sets, daily range): BP systolic 141–149; BP diastolic 74–90; PULSE 65–80; RESP 16–20; TEMP 36.6–36.9; O2SAT 91–99; BMI 29.9
--- NOTE | ~2021-07-16 | XR_ITS ---
EXAMINATION: XR CHEST CLINICAL INFORMATION: Shortness of breath and wheezing. COMPARISON: None TECHNIQUE: Frontal view of the chest was obtained. FINDINGS: A tiny probable calcified granuloma laterally in the right midlung is unchanged. The lungs are otherwise clear. The heart and mediastinal structures are unremarkable. XR/XR chest 1V IMPRESSION: Stable chest. No acute cardiopulmonary process.
--- NOTE | 2021-07-16 11:32 | ED_ITS ---
HPI - Asthma General Chief Complaint: Upper Respiratory Symptoms Stated Complaint: diff breathing - asthma Time Seen by Provider: 07/16/21 11:28 Source: patient Mode of arrival: ambulatory Limitations: no limitations History of Present Illness HPI Narrative: 70 y/o female with history of asthma, hypothyroidism, oste oporosis, GERD, gastritis who presents to the ER with 3 days of worsening SOB and wheezing. She has been using her inhalers at home with minimal relief. She reports being around her grandson a few days ago who was sick with a cough. He has not been tested for COVID. She is fully vaccinated. Her only other complaint is a headache, mild, frontal and aching in nature. She reports she is coughing a little bit and bring up some white phelgm but not much. She is very wheezy and has a hard time catching her breath when speaking or when walking. She has no chest pain, hemoptysis, dizziness, fever, chills, N/V/D or abdominal pain. MD complaint: asthma attack , shortness of breath and wheezing Onset (ago): day(s) (3) Severity: worse than usual Context: other (around her sick grandchild ) Associated symptoms: productive cough Asthma History: history of prior ED visit Treatments Prior to Arrival: inhaled bronchodilator Related Data Current Asthma Therapy: inhaled bronchodilator Home Medications Medication Instructions Recorded Confirmed acetaminophen 500 mg tablet 1,000 mg PO Q6H PRN 10/27/20 05/23/21 albuterol sulfate mg INHALATION Q6H PRN 10/27/20 05/23/21 atorvastatin 40 mg tablet 40 mg PO DAILY 10/27/20 05/23/21 budesonide-formoterol HFA 160 2 puff PO BID 10/27/20 05/23/21 mcg-4.5 mcg/actuation aerosol inhaler cetirizine 10 mg tablet 10 mg PO DAILY PRN 10/27/20 05/23/21 citalopram 10 mg tablet 10 mg PO DAILY 10/27/20 05/23/21 clobetasol 0.05 % topical ointment g TOPICAL DAILY 10/27/20 05/23/21 famotidine 20 mg tablet 20 mg PO DAILY PRN 10/27/20 05/23/21 mirtazapine 30 mg tablet 30 mg PO BEDTIME 10/27/20 05/23/21 montelukast 10 mg tablet 10 mg PO DAILY 10/27/20 05/23/21 multivitamin 1 tab PO DAILY 10/27/20 05/23/21 zolpidem 10 mg tablet 10 mg PO BEDTIME PRN 10/27/20 05/23/21 Previous Rx's Medication Instructions Recorded calcium citrate 500 mg PO BID 90 Days #360 tab 03/03/21 levothyroxine 50 mcg tablet 50 mcg PO DAILY 90 Days #90 tab 03/03/21 methylcellulose (laxative) 500 mg 500 mg PO DAILY #30 tab 06/28/21 tablet (Citrucel) pantoprazole 40 mg tablet,delayed 40 mg PO DAILY #30 tab 06/28/21 release sennosides 8.6 mg tablet (Natural 8.6 mg PO BEDTIME #30 tab 06/28/21 Senna Laxative) azithromycin 250 mg tablet See Rx Instructions .ROUTE 07/16/21 (Zithromax Z-Lux) .COMPLEX #6 tab prednisone 10 mg tablets in a dose 10 mg PO PER PKG DIR #48 ea 07/16/21 pack Allergies Allergy/AdvReac Type Severity Reaction Status Date / Time morphine [MORPHINE] Allergy Unknown RASH Verified 07/16/21 11:12 Review of Systems Review of Systems: Constitutional: No Fever, No Chills ENT/Mouth: No sore throat, No Rhinorrhea, No Swallowing Difficulty Cardiovascular: No Chest Pain, + SOB, No Orthopnea, No Edema Respiratory: + Cough, + Sputum, + Wheezing, + dyspnea Gastrointestinal: No Nausea, No Vomiting, No Diarrhea, No abdominal Pain Genitourinary: No Dysuria, No Urinary Frequency, No Hematuria Musculoskeletal: No joint pain, No Myalgias Skin: No Skin Lesions, No rash Neuro: No Weakness, No Numbness, No Dizziness, +Headache Psych: No Anxiety/Panic, No Depression Heme/Lymph: No Bruising, No Lymphadenopathy Endocrine: No Polyuria, No Polydipsia PMFSH Past Medical History Medical History (Updated 07/16/21 @ 13:57 by LANDON Briones) Asthma Hyperthyroidism Postablative hypothyroidism Primary hyperparathyroidism Vitamin D deficiency Surgical History History of carpal tunnel release of both wrists Hx of cataract removal with insertion of prosthetic lens Hx of cholecystectomy Hx of hysterectomy Hx of lithotripsy S/P subtotal parathyroidectomy Family History Family History Father No problems noted. Mother No problems noted. Social History Social History Alcohol intake: never Patient Tobacco Use Status: Never used Tobacco Use of substances other than those prescribed or required for medical reasons: No Advance Directives: No Advance Directives Information Provided: No Physical Exam Vital Signs: Vital Signs: Last Vital Signs Temp 97.8 F 07/16/21 11:12 Pulse 74 07/16/21 13:55 Resp 20 07/16/21 13:26 BP 149/79 H 07/16/21 13:26 Pulse Ox 95 07/16/21 13:26 Oxygen Flow Rate 6 07/16/21 12:38 Body Mass Index 29.9 Appearance: Alert. Oriented X3. No acute distress. Eyes: Pupils equal, round and reactive to light. ENT: Pharynx normal. Neck: Normal inspection. Neck supple. CVS: Normal heart rate and rhythm. Pulses normal. Respiratory: Mild respiratory distress with tachypnea and audible wheezing. Breath sounds with inspiratory and expiratory wheezes throughout, speaking in 3- 4 word sentences. Abdomen: Soft and nontender. +BS x4 Skin: Skin warm and dry. Normal skin color. Normal skin turgor. No rashes. Extremities: No lower extremity edema. Neuro: Oriented X 3. No motor deficit. No sensory deficit. Course Course Course Narrative: 70 y/o female with history of asthma who presents to the ER with 3 days of worsening SOB and wheezing consistent with acute asthma exace rbation. On arrival she is saturating 93% with inspiratory and expiratory wheezes throughout. Will get CXR, basic labs and give dose IV solumedrol, IV Mg++ and an hour long albuterol Reevaluation(s) Reevaluation #1: After our long nebulizer patient reports feeling better. However on examination she still has inspiratory and expiratory wheezes throughout. Her oxygen saturations were found to be 89% on room air. She was i n no respiratory distress. Another hour long albuterol treatment has been ordered. Will reassess. She may require admission to the hospital. Reevaluation #2: During 2nd hour long treatment patient's lung sounds significantly improved. She has much better aeration and significantly less wheezing. She feels much better. Her oxygen saturations are 98%. Will reassess once nebulizer treatment is completed. Reevaluation #3: Second nebulizer treatment has been completed and patient continues to feel well. She would like to be discharged home. We discussed the results of her blood work, chest x-ray, COVID test and treatment of acute asthma exacerbation at home. She was encouraged to continue to use her ProAir and we will discharge with p.o. Z-Lux and prednisone taper. She will follow-up with her doctor next week. Advised to come back to the ER if she has any respiratory decompensation. Results and plan also discussed with the daughter at the bedside. Stable for discharge home MDM - Asthma Lab Data Result diagrams: 07/16/21 11:56 07/16/21 11:56 Labs: Lab Results 07/16/21 07/16/21 07/16/21 Range/Units 11:56 11:56 11:56 WBC 5.5 (4.8-10.8) X10*3/uL RBC 4.09 L (4.20-5.50) X10*6/uL Hgb 12.9 (12.0-16.0) g/dl Hct 40.6 (37-47) % MCV 99.3 H (80-98) fL MCH 31.5 (27.0-33.0) pg MCHC 31.8 (31.0-35.0) g/dl RDW 13.8 (11.0-16.0) % Plt Count 220 (160-400) X10*3/uL MPV 10.5 (9.4-12.3) fL Immature Gran % (Auto) 0.2 (0.0-0.4) % Neut % (Auto) 55.0 (45-73) % Lymph % (Auto) 30.5 (20-40) % [place] % (Auto) 7.8 (2-11) % Eos % (Auto) 6.0 H (0-4) % Baso % (Auto) 0.5 (0-2) % Lymph # (Auto) 1.7 (1.2-4.9) X10*3/uL [place] # (Auto) 0.4 (0.1-1.2) X10*3/uL Eos # (Auto) 0.3 (0.0-0.4) X10*3/uL Baso # (Auto) 0.0 (0.0-0.2) X10*3/uL Abs Immat Gran (auto) 0.01 (0.00-0.03) X10*3/uL Absolute Neuts (auto) 3.0 (2.0-8.3) X10*3/uL Absolute Nucleated RBC 0.000 (0.0-0.012) X10*3/uL Nucleated RBC % (auto) 0.0 (0.0-0.2) /100WBC Sodium 142 (135-145) mmol/L Potassium 3.9 (3.3-5.1) mmol/L Chloride 104 (96-108) mmol/L Carbon Dioxide 31 H (22-29) mmol/L Anion Gap 11 L (12-20) BUN 11 (9-16) mg/dL Creatinine 0.87 (0.5-1.4) mg/dL Estim Creat Clear Calc 48.6 Estimated GFR > 60 Random Glucose 93 (60-115) mg/dL Calcium 9.6 (8.4-10.2) mg/dL B-Natriuretic Peptide (<100) pg/mL COVID-19 (RUTHY) Negative (Negative) COVID-19 Clin Com See Note 07/16/21 Range/Units 11:56 WBC (4.8-10.8) X10*3/uL RBC (4.20-5.50) X10*6/uL Hgb (12.0-16.0) g/dl Hct (37-47) % MCV (80-98) fL MCH (27.0-33.0) pg MCHC (31.0-35.0) g/dl RDW (11.0-16.0) % Plt Count (160-400) X10*3/uL MPV (9.4-12.3) fL Immature Gran % (Auto) (0.0-0.4) % Neut % (Auto) (45-73) % Lymph % (Auto) (20-40) % [place] % (Auto) (2-11) % Eos % (Auto) (0-4) % Baso % (Auto) (0-2) % Lymph # (Auto) (1.2-4.9) X10*3/uL [place] # (Auto) (0.1-1.2) X10*3/uL Eos # (Auto) (0.0-0.4) X10*3/uL Baso # (Auto) (0.0-0.2) X10*3/uL Abs Immat Gran (auto) (0.00-0.03) X10*3/uL Absolute Neuts (auto) (2.0-8.3) X10*3/uL Absolute Nucleated RBC (0.0-0.012) X10*3/uL Nucleated RBC % (auto) (0.0-0.2) /100WBC Sodium (135-145) mmol/L Potassium (3.3-5.1) mmol/L Chloride (96-108) mmol/L Carbon Dioxide (22-29) mmol/L Anion Gap (12-20) BUN (9-16) mg/dL Creatinine (0.5-1.4) mg/dL Estim Creat Clear Calc Estimated GFR Random Glucose (60-115) mg/dL Calcium (8.4-10.2) mg/dL B-Natriuretic Peptide 32 (<100) pg/mL COVID-19 (RUTHY) (Negative) COVID-19 Clin Com Critical Care Time Critical Care Time Critical Care Time: Yes Total Critical Care Time: 45 Attestation: I have personally provided critical care time exclusive of time spent on separately billable procedures. Time includes review of lab data, radiology results, discussion with consultants, and monitoring for potential decompensation. Intervention performed as documented. Discharge Plan Discharge Clinical Impression: Acute asthma exacerbation Qualifiers: Asthma severity: unspecified severity Asthma persistence: unspecified Qualified Code(s): J45.901 - Unspecified asthma with (acute) exacerbation Patient Disposition: Home, Self-Care Instructions: Asthma (ED) Additional Instructions: Your being treated for an acute asthma exacerbation with steroids and antibiotics. Continue to use your albuterol inhaler every 4 hours swelling or not feeling well. Rest and stay hydrated. Take the prescribed prednisone as directed in a tapering fashion, with decreasing doses every 4 days. Follow-up with your doctor next week. Consider talking to her doctor about getting a nebulizer machine for home nebulizer treatments. If you develop new or worsening symptoms call 911 or come back to the ER for further evaluation. Prescriptions: New prednisone 10 mg tablets,dose pack 10 mg PO PER PKG DIR Qty: 48 RF: 0 azithromycin [Zithromax Z-Lux] 250 mg tablet See Rx Instructions .ROUTE .COMPLEX Qty: 6 RF: 0 No Action levothyroxine 50 mcg tablet 50 mcg PO DAILY 90 Days Qty: 90 RF: 3 zolpidem 10 mg tablet 10 mg PO BEDTIME PRNRF: 0 mirtazapine 30 mg tablet 30 mg PO BEDTIME RF: 0 famotidine 20 mg tablet 20 mg PO DAILY PRNRF: 0 citalopram 10 mg tablet 10 mg PO DAILY RF: 0 albuterol sulfate 2.5 mg /3 mL (0.083 %) solution for nebulization inhalation Q6H PRN (Reason: asthma) RF: 0 atorvastatin 40 mg tablet 40 mg PO DAILY RF: 0 montelukast 10 mg tablet 10 mg PO DAILY RF: 0 cetirizine 10 mg tablet 10 mg PO DAILY PRNRF: 0 multivitamin Tablet 1 tab PO DAILY RF: 0 acetaminophen 500 mg tablet 1,000 mg PO Q6H PRN (Reason: pain) RF: 0 budesonide-formoterol 160-4.5 mcg/actuation HFA aerosol inhaler 2 puff PO BID RF: 0 clobetasol 0.05 % ointment topical DAILY RF: 0 calcium citrate 250 mg calcium tablet 500 mg PO BID 90 Days Qty: 360 RF: 1 Citrucel 500 mg tablet 500 mg PO DAILY Qty: 30 RF: 2 sennosides [Natural Senna Laxative] 8.6 mg tablet 8.6 mg PO BEDTIME Qty: 30 RF: 2 pantoprazole 40 mg tablet,delayed release (DR/EC) 40 mg PO DAILY Qty: 30 RF: 2 Referrals: Rea Alegre MD [Primary Care Provider] - 5 days
--- NOTE | 2021-07-16 11:45 | PC.NURSE ---
pt alert and oriented x4, vss. pt states she has been sob and wheezing x3 days, she reports the symptoms has been getting worse daily. Pt has history of asthma and reports she has been using her inhaler with minimal relief. She also c/o mild headache. She reports a cough with small amount of white phlegm. SOB noted with exertion and when speaking. Audible wheezing noted throughout. she denies chest pain/dizziness/fever/chills. no N/V/D/abdominal pain. She also reports she has been around her grandson who has been coughing a lot
[2021-07-16] MEDS: Albuterol Sulfate (0.083%) 2.5 MG/3 ML VIAL.NEB 10 MG INHALE ×2 (12:01→13:55)
[2021-07-16] MEDS: methylPREDNISolone Sod Succ 125 MG/2 ML VIAL IVPUSH (12:05)
[2021-07-16] MEDS: Acetaminophen 325 MG TABLET 650 MG PO (12:05)
[2021-07-16] MEDS: Magnesium Sulfate/H2O 2 GM/50 ML PIGGYBACK IV (12:05)
[2021-07-16 12:07] LABS: MANUAL DIFF FLAG NO
[2021-07-16 12:15] LABS: Basophils Percent Auto 0.5 % (0-2); Eosinophils Absolute Auto 0.3 X10*3/uL (0.0-0.4); Hematocrit 40.6 % (37-47); Hemoglobin 12.9 g/dl (12.0-16.0); Imm Gran Abs Auto 0.01 X10*3/uL (0.00-0.03); Imm Gran Pct Auto 0.2 % (0.0-0.4); Lymphocytes Absolute Auto 1.7 X10*3/uL (1.2-4.9); Lymphocytes Percent Auto 30.5 % (20-40); Mean Corpuscular HGB Conc 31.8 g/dl (31.0-35.0); Mean Corpuscular Hemoglobin 31.5 pg (27.0-33.0); Mean Corpuscular Volume 99.3 fL (80-98); Mean Platelet Volume 10.5 fL (9.4-12.3); Monocytes Absolute Auto 0.4 X10*3/uL (0.1-1.2); Monocytes Percent Auto 7.8 % (2-11); Platelet Count 220 X10*3/uL (160-400); Red Blood Count 4.09 X10*6/uL (4.20-5.50); Red Cell Distribution Width 13.8 % (11.0-16.0); White Blood Count 5.5 X10*3/uL (4.8-10.8)
--- NOTE | 2021-07-16 12:15 | PC.NURSE ---
respiratory therapy at bedside, pt getting breathing tx. pt's O2 sat 88-89% on 6L with Aerosol mask. pt put on 6L O2 with breathing tx which improved her O2 sat to 97-98%. pt denies sob/dizziness. meds given as documented.
[2021-07-16 12:26] LABS: Anion Gap 11 (12-20); Blood Urea Nitrogen 11 mg/dL (9-16); Calcium 9.6 mg/dL (8.4-10.2); Carbon Dioxide 31 mmol/L (22-29); Chloride 104 mmol/L (96-108); Creatinine Clr Calc Pharmacy 48.6; Estimated Glomerular Filt Rate > 60; Glucose Random 93 mg/dL (60-115); Potassium 3.9 mmol/L (3.3-5.1); Sodium 142 mmol/L (135-145)
[2021-07-16 12:30] LABS: B Type Natriuretic Peptide 32 pg/mL (<100)
[2021-07-16 12:32] LABS: COVID-19 Test Negative (Negative); IDNOW Serial# 9DD0AD1C
--- NOTE | 2021-07-16 13:45 | PC.NURSE ---
after breathing tx pt satting 96-97% R/A. O2 sat went down to 89% on R/A. Respiratory therapy at pt's bedside giving another breathing tx. Pt satting 97-98% with 6L Aerosol mask. pt denies sob/headache/dizziness.
--- NOTE | 2021-07-16 17:04 | PC.NURSE ---
pt medically cleared for discharge. discharge summary given and explained to pt. pt's daughter present on discharge. O2 sat 98% R/A, denies sob/headache/dizziness. vss.
== END 2021-07-16 17:07 | disposition home or self-care (01) ==
PROVIDERS: Physician Assistant; Emergency Provider Emergency Medicine; PCP Family Medicine
DX: J45.901 Unspecified asthma with (acute) exacerbation (principal); R06.02 Shortness of breath; Z20.822 Contact with and (suspected) exposure to COVID-19; Z79.899 Other long term (current) drug therapy
CPT/HCPCS: 36415; 71045; 80048; 83880; 85025; 87635; 94640; 94644; 94645; 96365; 96366; 96375; 99285; 99291; J2930; J3475

== ENCOUNTER → 2021-07-26 13:49 | Outpatient (BNVA) | payer MEDICARE, OTHER, SELFPAY | PROVIDERS: PCP Family Medicine; Referring Provider Family Medicine; Visit Provider Nurse Practitioner Family | DX: K21.9 Gastro-esophageal reflux disease without esophagitis (principal); K58.1 Irritable bowel syndrome with constipation; K59.04 Chronic idiopathic constipation; R10.11 Right upper quadrant pain | CPT/HCPCS: 99212 ==

== ENCOUNTER 2021-08-10 08:41 | Outpatient (REF) | payer MEDICARE, OTHER, SELFPAY ==
--- NOTE | ~2021-08-10 | MM_ITS ---
EXAMINATION: MM SCREENING DIGITAL BREAST TOMOSYNTHESIS, BILATERAL CLINICAL INFORMATION: Screening. Asymptomatic. The lifetime risk of breast cancer based on the Tyrer-Cuzick Model is 2%. COMPARISON: Mammography: 03/29/2020, 03/24/2019, 03/21/2018 TECHNIQUE: Digital breast tomosynthesis is performed in both the craniocaudal and mediolateral oblique views along with computer-aided detection (CAD). Synthesized 2D images are generated from the tomosynthesis. FINDINGS: There are scattered areas of fibroglandular density (ACR BI-RADS breast composition Category b). There are no significant masses, abnormal calcifications, or other abnormalities. MM/MM tomosynthesis screening BI IMPRESSION: No mammographic evidence of malignancy. ASSESSMENT: BI-RADS 1: Negative RECOMMENDATION: Routine annual mammography screening. This patient's information was entered into a reminder system with a target due date for their next mammogram.
== END 2021-08-10 08:42 | disposition home or self-care (01) ==
LOC: HO.MAMMO 08:41
PROVIDERS: Visit Provider Family Medicine
DX: Z12.31 Encounter for screening mammogram for malignant neoplasm of breast (principal)
CPT/HCPCS: 77063; 77067

== ENCOUNTER → 2021-09-05 08:44 | Outpatient (BNVA) | payer MEDICARE, OTHER, SELFPAY | PROVIDERS: PCP Family Medicine; Referring Provider Family Medicine; Visit Provider Nurse Practitioner Family | DX: K59.04 Chronic idiopathic constipation (principal); K58.1 Irritable bowel syndrome with constipation; K21.9 Gastro-esophageal reflux disease without esophagitis | CPT/HCPCS: 99212 ==

== ENCOUNTER 2021-11-15 11:03 | Emergency (ER) | payer MEDICARE, OTHER, SELFPAY ==
--- NOTE | ~2021-11-15 | XR_ITS ---
EXAMINATION: XR CHEST CLINICAL INFORMATION: Chest pain COMPARISON: Chest 07/16/2021 TECHNIQUE: Frontal view of the chest was obtained. FINDINGS: Both lungs are well-expanded atelectasis left upper lobe. Rest lungs are clear.. The heart size and pulmonary vascularity is normal. No gross bony abnormality seen. XR/XR chest 1V IMPRESSION: Platelike atelectasis left upper lobe.
[2021-11-15 11:52] VITALS: BP 161/70; PULSE 58; RESP 18; TEMP 36.6; O2SAT 96; BMI 30.1
--- NOTE | 2021-11-15 11:56 | ECG_ITS ---
Test Reason : cp Blood Pressure : / mmHG Vent. Rate : 057 BPM Atrial Rate : 057 BPM P-R Int : 128 ms QRS Dur : 080 ms QT Int : 424 ms P-R-T Axes : 019 -05 -07 degrees QTc Int : 412 ms Sinus bradycardia Nonspecific T wave abnormality Abnormal ECG When compared with ECG of 30-DEC-2020 09:56, No significant change was found Referred By: Generic ED Physician Electronically Signed By:MELE OREILLY
[2021-11-15 12:18] LABS: Hematocrit 41.9 % (37.0-47.0); Hemoglobin 13.5 g/dl (12.0-16.0); Mean Corpuscular HGB Conc 32.2 g/dl (31.0-35.0); Mean Corpuscular Volume 96.1 fL (80.0-98.0); Mean Platelet Volume 10.4 fL (9.4-12.3); Platelet Count 234 X10*3/uL (160-400); Red Blood Count 4.36 X10*6/uL (4.20-5.50); Red Cell Distribution Width 13.4 % (11.0-16.0); White Blood Count 6.5 X10*3/uL (4.8-10.8)
[2021-11-15 12:33] LABS: Anion Gap 15 (12-20); Blood Urea Nitrogen 12 mg/dL (9-16); Calcium 9.5 mg/dL (8.4-10.2); Carbon Dioxide 28 mmol/L (22-29); Chloride 106 mmol/L (96-108); Estimated Glomerular Filt Rate > 60; Glucose Random 88 mg/dL (60-115); Sodium 145 mmol/L (135-145)
[2021-11-15 12:39] LABS: Troponin-I High Sensitivity < 3.5 ng/L (<3.5-17.0)
--- NOTE | 2021-11-15 15:29 | ED.CHESTPAIN ---
HPI - Chest Pain General Chief Complaint: Chest Pain Stated Complaint: Chest Wall Pain Back Pain Time Seen by Provider: 11/15/21 12:08 Source: patient and family Mode of arrival: ambulatory Limitations: no limitations History of Present Illness MD complaint: chest pain (body aches, not feeling well, nausea) Onset (ago): day(s) (last night) Timing of current episode: constant Prior episodes: No Onset: during rest Pain location: substernal and other (has pain in back and neck as well) Pain radiation: none Severity: moderate Quality: aching Relieving factors: nothing Exacerbating factors: palpation and movement Context: other (noted diarrhea yesterday) Associated symptoms: other (chills, diarrhea yesterday) Treatment prior to arrival: none Related Data Home Medications Medication Instructions Recorded Confirmed acetaminophen 500 mg tablet 1,000 mg PO Q6H PRN 10/27/20 05/23/21 albuterol sulfate mg INHALATION Q6H PRN 10/27/20 05/23/21 atorvastatin 40 mg tablet 40 mg PO DAILY 10/27/20 05/23/21 budesonide-formoterol HFA 160 2 puff PO BID 10/27/20 05/23/21 mcg-4.5 mcg/actuation aerosol inhaler cetirizine 10 mg tablet 10 mg PO DAILY PRN 10/27/20 05/23/21 citalopram 10 mg tablet 10 mg PO DAILY 10/27/20 05/23/21 clobetasol 0.05 % topical ointment g TOPICAL DAILY 10/27/20 05/23/21 mirtazapine 30 mg tablet 30 mg PO BEDTIME 10/27/20 05/23/21 montelukast 10 mg tablet 10 mg PO DAILY 10/27/20 05/23/21 multivitamin 1 tab PO DAILY 10/27/20 05/23/21 zolpidem 10 mg tablet 10 mg PO BEDTIME PRN 10/27/20 05/23/21 Previous Rx's Medication Instructions Recorded calcium citrate 500 mg PO BID 90 Days #360 tab 03/03/21 levothyroxine 50 mcg tablet 50 mcg PO DAILY 90 Days #90 tab 03/03/21 linaclotide 72 mcg capsule 72 mcg PO DAILY #90 cap 09/05/21 (Linzess) methylcellulose (laxative) 500 mg 500 mg PO DAILY #90 tab 09/05/21 tablet (Citrucel) pantoprazole 40 mg tablet,delayed 40 mg PO DAILY #90 tab 09/05/21 release cyclobenzaprine 10 mg tablet 10 mg PO TID PRN #14 tab 11/15/21 lidocaine 5 % topical patch 1 patch TOPICAL DAILY #15 ea 11/15/21 Allergies Allergy/AdvReac Type Severity Reaction Status Date / Time morphine [MORPHINE] Allergy Unknown RASH Verified 09/05/21 08:54 Review of Systems Review of Systems: Constitutional : No Weight loss, No Fever, pos Chills ENT/Mouth : No sore throat, No Rhinorrhea Eyes: No Eye Pain, No Swelling Cardiovascular : pos Chest Pain, no SOB, no Dyspnea on Exertion, No Orthopnea, No Edema, No Palpitations Respiratory : No Cough, No Sputum Gastrointestinal : pos Nausea, No Vomiting, pos Diarrhea, No abdominal Pain, No Hematochezia, No Melena Genitourinary : No Dysuria, No Urinary Frequency Musculoskeletal : No joint pain, No Myalgias, No Joint Swelling Skin : No Skin Lesions, No rash Neuro : No Weakness, No Numbness, No Dizziness, No Headache Psych : No Anxiety/Panic, No Depression Heme/Lymph: No Bruising, No Lymphadenopathy Endocrine : No Polyuria, No Polydipsia All other systems reviewed and are negative PMFSH Past Medical History Attestation statement: The following information was validated with the patient. Medical History Asthma Hyperthyroidism Postablative hypothyroidism Primary hyperparathyroidism Vitamin D deficiency Surgical History History of carpal tunnel release of both wrists Hx of cataract removal with insertion of prosthetic lens Hx of cholecystectomy Hx of endoscopy Hx of hysterectomy Hx of lithotripsy S/P subtotal parathyroidectomy Family History Family History Father No problems noted. Mother No problems noted. Social History Social History Alcohol intake: never Patient Tobacco Use Status: Never used Tobacco Use of substances other than those prescribed or required for medical reasons: No Advance Directives: No Advance Directives Information Provided: Yes Physical Exam Vital Signs: Vital Signs: Last Vital Signs Temp 98.3 F 11/15/21 15:56 Pulse 53 11/15/21 15:56 Resp 20 11/15/21 15:56 BP 150/74 H 11/15/21 15:56 Pulse Ox 95 11/15/21 15:56 BMI result Body Mass Index 30.1 Appearance: Alert. Oriented X3. No acute distress. Eyes: Pupils equal, round and reactive to light. ENT: Pharynx normal. Neck: Normal inspection. Neck supple. CVS: Normal heart rate and rhythm. Pulses normal. Chest: ttp along sternum reproduces pain Respiratory: No respiratory distress. Breath sounds normal. Abdomen: Soft and nontender. Skin: Skin warm and dry. Normal skin color. Normal skin turgor. Extremities: No lower extremity edema. No calf ttp Neuro: Oriented X 3. No motor deficit. No sensory deficit. Course Course Course Narrative: ddimer normal range trop neg x 2 neg workup stable for DC MDM - Chest Pain MDM Narrative Medical decision making narrative: 71 yo female with hx of thyroid disease her with c/o chest wall pain, not feeling well had diarrhea yesterday. At this time the chest pain seems MSK and reproduceable but given age will need troponin x 2, EKG is unchanged from 2018, possible viral syndrome overall exam is benign VS are stable - PO tylenol and flexeril ordered. Dispo per results and findings. Lab Data Result diagrams: 11/15/21 12:04 11/15/21 12:04 Labs: Lab Results 11/15/21 11/15/21 11/15/21 Range/Units 12:04 12:04 12:04 WBC 6.5 (4.8-10.8) X10*3/uL RBC 4.36 (4.20-5.50) X10*6/uL Hgb 13.5 (12.0-16.0) g/dl Hct 41.9 (37.0-47.0) % MCV 96.1 (80.0-98.0) fL MCH 31.0 (27.0-33.0) pg MCHC 32.2 (31.0-35.0) g/dl RDW 13.4 (11.0-16.0) % Plt Count 234 (160-400) X10*3/uL MPV 10.4 (9.4-12.3) fL Absolute Nucleated RBC 0.000 (0.0-0.012) X10*3/uL Nucleated RBC % (auto) 0.0 (0.0-0.2) /100WBC D-Dimer High Sensitivty NG/ML Sodium 145 (135-145) mmol/L Potassium 4.0 (3.3-5.1) mmol/L Chloride 106 (96-108) mmol/L Carbon Dioxide 28 (22-29) mmol/L Anion Gap 15 (12-20) BUN 12 (9-16) mg/dL Creatinine 0.89 (0.5-1.4) mg/dL Estim Creat Clear Calc 47.0 Estimated GFR > 60 Random Glucose 88 (60-115) mg/dL Calcium 9.5 (8.4-10.2) mg/dL Total Bilirubin 1.0 (0.0-1.0) mg/dL Direct Bilirubin 0.4 (0.0-0.5) mg/dL AST 24 (5-31) U/L ALT 15 (0-31) U/L Alkaline Phosphatase 78 (39-117) U/L Troponin I High Sens < 3.5 (<3.5-17.0) ng/L Total Protein 7.2 (6.5-8.0) g/dL Albumin 4.4 (3.5-5.0) g/dL Lipase 63 (8-78) U/L 11/15/21 11/15/21 Range/Units 16:08 16:08 WBC (4.8-10.8) X10*3/uL RBC (4.20-5.50) X10*6/uL Hgb (12.0-16.0) g/dl Hct (37.0-47.0) % MCV (80.0-98.0) fL MCH (27.0-33.0) pg MCHC (31.0-35.0) g/dl RDW (11.0-16.0) % Plt Count (160-400) X10*3/uL MPV (9.4-12.3) fL Absolute Nucleated RBC (0.0-0.012) X10*3/uL Nucleated RBC % (auto) (0.0-0.2) /100WBC D-Dimer High Sensitivty 184 NG/ML Sodium (135-145) mmol/L Potassium (3.3-5.1) mmol/L Chloride (96-108) mmol/L Carbon Dioxide (22-29) mmol/L Anion Gap (12-20) BUN (9-16) mg/dL Creatinine (0.5-1.4) mg/dL Estim Creat Clear Calc Estimated GFR Random Glucose (60-115) mg/dL Calcium (8.4-10.2) mg/dL Total Bilirubin (0.0-1.0) mg/dL Direct Bilirubin (0.0-0.5) mg/dL AST (5-31) U/L ALT (0-31) U/L Alkaline Phosphatase (39-117) U/L Troponin I High Sens < 3.5 (<3.5-17.0) ng/L Total Protein (6.5-8.0) g/dL Albumin (3.5-5.0) g/dL Lipase (8-78) U/L ECG Data ECG #1: Attestation: I personally reviewed and interpreted this ECG as follows: ECG interpretation date: 11/15/21 ECG interpretation time: 15:29 Interpretation: Rate: 57 Rhythm: sinus bradycardia [place]: left Normal P waves. Normal ILDA. Normal QRS complex. ST T wave : inverted t waves V1-V4, III no DARCY qTC: normal prior studies: no acute ischemia - unchanged January 2018 The study has been interpreted contemporaneously by me. . Discharge Plan Discharge Clinical Impression: Atypical chest pain Patient Disposition: Home, Self-Care Instructions: Chest Pain (ED) Additional Instructions: return to ED for any worsening symptoms or concerns Prescriptions: New cyclobenzaprine 10 mg tablet 10 mg PO TID PRN (Reason: muscle spasm) Qty: 14 0RF lidocaine 5 % adhesive patch,medicated 1 patch topical DAILY Qty: 15 0RF Rx Instructions: leave on most painful area for up to 12 hrs No Action levothyroxine 50 mcg tablet 50 mcg PO DAILY 90 Days Qty: 90 3RF Rx Instructions: Dose decreased to 50 mcg please discontinue prior prescription of 75 mcg zolpidem 10 mg tablet 10 mg PO BEDTIME PRN0RF mirtazapine 30 mg tablet 30 mg PO BEDTIME 0RF citalopram 10 mg tablet 10 mg PO DAILY 0RF albuterol sulfate 2.5 mg /3 mL (0.083 %) solution for nebulization inhalation Q6H PRN (Reason: asthma) 0RF atorvastatin 40 mg tablet 40 mg PO DAILY 0RF montelukast 10 mg tablet 10 mg PO DAILY 0RF cetirizine 10 mg tablet 10 mg PO DAILY PRN0RF multivitamin Tablet 1 tab PO DAILY 0RF acetaminophen 500 mg tablet 1,000 mg PO Q6H PRN (Reason: pain) 0RF budesonide-formoterol 160-4.5 mcg/actuation HFA aerosol inhaler 2 puff PO BID 0RF clobetasol 0.05 % ointment topical DAILY 0RF calcium citrate 250 mg calcium tablet 500 mg PO BID 90 Days Qty: 360 1RF Linzess 72 mcg capsule 72 mcg PO DAILY Qty: 90 2RF Citrucel 500 mg tablet 500 mg PO DAILY Qty: 90 2RF Rx Instructions: libby todas las mananas con un vaso de agua lleno pantoprazole 40 mg tablet,delayed release (DR/EC) 40 mg PO DAILY Qty: 90 2RF Rx Instructions: libby un comprimido media hora antes del desayuno Referrals: Rea Alegre MD [Primary Care Provider] - 2 days (if not better) Print Language: Amharic
[2021-11-15 15:56] VITALS: BP 150/74; PULSE 53; RESP 20; TEMP 36.8; O2SAT 95
[2021-11-15 15:59] LABS: Alanine Aminotransferase 15 U/L (0-31); Albumin Level 4.4 g/dL (3.5-5.0); Alkaline Phosphatase 78 U/L (39-117); Aspartate Amino Transferase 24 U/L (5-31); Bilirubin Direct 0.4 mg/dL (0.0-0.5); Lipase 63 U/L (8-78); Total Protein 7.2 g/dL (6.5-8.0)
[2021-11-15] MEDS: Ondansetron ODT 4 MG TAB.RAPDIS TRANSLINGU (16:04)
[2021-11-15] MEDS: Cyclobenzaprine HCl 10 MG TABLET PO (16:04)
[2021-11-15 16:05] VITALS: PULSE 53
[2021-11-15 16:32] LABS: D Dimer High Sensitivity 184 NG/ML
[2021-11-15 16:39] LABS: Troponin-I High Sensitivity < 3.5 ng/L (<3.5-17.0)
== END 2021-11-15 16:55 | disposition home or self-care (01) ==
PROVIDERS: Emergency Provider Emergency Medicine; PCP Family Medicine
DX: R07.89 Other chest pain (principal)
CPT/HCPCS: 36415; 71045; 80048; 80076; 83690; 84484; 85027; 85379; 93005; 99283; 99285

== ENCOUNTER 2021-11-17 12:47 | Outpatient (REF) | payer MEDICARE, OTHER, SELFPAY ==
[2021-11-17 14:20] LABS: Free T4 (Free Thyroxine) 1.54 ng/dL (0.71-1.85); Thyroid Stimulating Hormone 2.17 uIU/mL (0.32-4.0)
[2021-11-18 20:17] LABS: Thyroglobulin Antibodies 1 IU/mL (< or = 1); Thyroid Peroxidase Antibodies 34 IU/mL (<9)
[2021-11-18 22:46] LABS: Triiodothyronine T3 Total 74 ng/dL (76-181)
[2021-11-20 19:07] LABS: Thyrotropin Receptor Antibody <1.00 IU/L (<=2.00)
[2021-11-22 16:21] LABS: Thyroid Stimulating Immunoglob <89 % baseline (<140)
== END 2021-11-17 12:48 | disposition home or self-care (01) ==
LOC: HO.LAB 12:47
PROVIDERS: PCP Family Medicine; Visit Provider Internal Medicine
DX: E89.0 Postprocedural hypothyroidism (principal); E05.90 Thyrotoxicosis, unspecified without thyrotoxic crisis or storm; E55.9 Vitamin D deficiency, unspecified
CPT/HCPCS: 36415; 82306; 83520; 84439; 84443; 84445; 84480; 86376; 86800

== ENCOUNTER → 2021-12-05 08:49 | Outpatient (BNVA) | payer MEDICARE, OTHER, SELFPAY | PROVIDERS: PCP Family Medicine; Referring Provider Family Medicine; Visit Provider Nurse Practitioner Family | DX: K59.04 Chronic idiopathic constipation (principal); K58.1 Irritable bowel syndrome with constipation; K21.9 Gastro-esophageal reflux disease without esophagitis | CPT/HCPCS: 99212 ==

== ENCOUNTER 2021-12-09 08:38 | Emergency (ER) | payer MEDICARE, SELFPAY ==
--- NOTE | ~2021-12-09 | XR_ITS ---
EXAMINATION: RIGHT KNEE AND RIGHT HIP X-RAYS CLINICAL INFORMATION: Pain COMPARISON: Previous x-rays from 2019 and 2020 TECHNIQUE: 4 views of the right knee and 2 views of the right hip and one views of the pelvis FINDINGS: Right knee: Bone alignment is normal. No fracture or dislocation is seen. The joint spaces are normal. There is no joint effusion. Right hip and pelvis: Bone alignment is normal. No fracture or dislocation is seen. There is a small superior lateral acetabular osteophyte. The joint space is otherwise normal. Bones of the pelvis are normal. There are degenerative changes of the visualized lower lumbar spine. Soft tissues are normal. XR/XR hip RT w PEL1V IMPRESSION: Right knee: Unremarkable exam Right hip and pelvis: Mild degenerative changes at the right hip joint.
--- NOTE | ~2021-12-09 | XR_ITS ---
EXAMINATION: RIGHT KNEE AND RIGHT HIP X-RAYS CLINICAL INFORMATION: Pain COMPARISON: Previous x-rays from 2019 and 2020 TECHNIQUE: 4 views of the right knee and 2 views of the right hip and one views of the pelvis FINDINGS: Right knee: Bone alignment is normal. No fracture or dislocation is seen. The joint spaces are normal. There is no joint effusion. Right hip and pelvis: Bone alignment is normal. No fracture or dislocation is seen. There is a small superior lateral acetabular osteophyte. The joint space is otherwise normal. Bones of the pelvis are normal. There are degenerative changes of the visualized lower lumbar spine. Soft tissues are normal. XR/XR knee RT 4V IMPRESSION: Right knee: Unremarkable exam Right hip and pelvis: Mild degenerative changes at the right hip joint.
[2021-12-09 08:41] VITALS: BP 134/79; PULSE 73; RESP 16; TEMP 37.2; O2SAT 95; BMI 27.2
--- NOTE | 2021-12-09 09:38 | ED.LOWEXIN ---
HPI - Extremity Injury (Lower) General Chief Complaint: Extremity Injury, Lower Stated Complaint: R hip pain Time Seen by Provider: 12/09/21 09:38 Source: patient and family (daughter) Mode of arrival: ambulatory Limitations: no limitations History of Present Illness HPI Narrative: Patient is a 71 year old female presenting to the emergency department today with right sided hip pain. Patient states that she woke up 2 days ago with the right sided hip pain and it does not seem to be getting better. Patient states that the pain stays in her right hip, does not radiate, is dull in nature, and is a 4/10 on the pain scale. Patient denies any dizziness, lightheadedness, abdominal pain, nausea, vomiting, fever, chills, blurry vision, double vision, loss of vision, chest pain, difficulty breathing, shortness of breath, back pain, night sweats, pain with urination, increased urinary frequency, increased urinary urgency, blood in her urine or stool, syncope or a near syncopal episode, recent trauma or falls, bowel incontinence, bladder incontinence, bowel retention, bladder retention, or any other complaints at this time. MD complaint: hip injury Onset (ago): day(s) (2) Place: home Severity: mild Severity scale (1-10): 4 Relieving factors: nothing Exacerbating factors: nothing Other symptoms: none Related Data Home Medications Medication Instructions Recorded Confirmed acetaminophen 500 mg tablet 1,000 mg PO Q6H PRN 10/27/20 05/23/21 albuterol sulfate mg INHALATION Q6H PRN 10/27/20 05/23/21 atorvastatin 40 mg tablet 40 mg PO DAILY 10/27/20 05/23/21 budesonide-formoterol HFA 160 2 puff PO BID 10/27/20 05/23/21 mcg-4.5 mcg/actuation aerosol inhaler cetirizine 10 mg tablet 10 mg PO DAILY PRN 10/27/20 05/23/21 citalopram 10 mg tablet 10 mg PO DAILY 10/27/20 05/23/21 clobetasol 0.05 % topical ointment g TOPICAL DAILY 10/27/20 05/23/21 mirtazapine 30 mg tablet 30 mg PO BEDTIME 10/27/20 05/23/21 montelukast 10 mg tablet 10 mg PO DAILY 10/27/20 05/23/21 multivitamin 1 tab PO DAILY 10/27/20 05/23/21 zolpidem 10 mg tablet 10 mg PO BEDTIME PRN 10/27/20 05/23/21 ascorbate calcium (vitamin C) 500 1 g PO Q6H 12/05/21 mg tablet Previous Rx's Medication Instructions Recorded calcium citrate 500 mg PO BID 90 Days #360 tab 03/03/21 levothyroxine 50 mcg tablet 50 mcg PO DAILY 90 Days #90 tab 03/03/21 linaclotide 72 mcg capsule 72 mcg PO DAILY #90 cap 09/05/21 (Linzess) methylcellulose (laxative) 500 mg 500 mg PO DAILY #90 tab 09/05/21 tablet (Citrucel) cyclobenzaprine 10 mg tablet 10 mg PO TID PRN #14 tab 11/15/21 pantoprazole 40 mg tablet,delayed 40 mg PO DAILY #90 tab 12/05/21 release sucralfate 100 mg/mL oral 10 ml PO BEDTIME #400 ml 12/05/21 suspension Allergies Allergy/AdvReac Type Severity Reaction Status Date / Time morphine [MORPHINE] Allergy Unknown RASH Verified 12/05/21 08:53 Review of Systems Constitutional: Constitutional: Reports no additional constitutional complaints, Denies chills, Denies fever(s) and Denies night sweats Eyes: Eyes: Reports no additional eye complaints, Denies blurry vision, Denies change in vision, Denies diplopia, Denies eye discharge, Denies loss of vision and Denies eye pain ENT: Denies dizziness Cardiovascular: Cardiovascular: Reports no additional cardiovascular complaints, Denies chest pain, Denies lightheadedness, Denies Loss of Consciousness and Denies dyspnea Respiratory: Respiratory: Reports no additional respiratory complaints and Denies dyspnea Gastrointestinal: Gastrointestinal: Reports no additional gastrointestinal complaints, Denies abdominal pain, Denies melena, Denies hematochezia, Denies change in bowel habits and Denies change in stool character Genitourinary: Genitourinary: Denies hematuria, Denies urinary frequency, Denies dysuria, Denies urinary incontinence, Denies urinary hesitancy and Denies urinary urgency Musculoskeletal: Musculoskeletal: Reports no additional musculoskeletal complaints, Denies numbness and Denies tingling Comments: right hip pain Neurologic: Denies dizziness, Denies loss of vision, Denies numbness and Denies tingling Psychiatric: Psychiatric: Reports no additional psychiatric complaints Endocrine: Endocrine: Reports no additional endocrine complaints Hematologic/Lymphatic: Hematologic/Lymphatic: Reports no additional hematologic/lymphatic complaints Allergic/Immunologic: Allergic/Immunologic: Reports no additional allergic/immunologic complaints FORMERLY [facility], 1928–1983 Past Medical History Attestation statement: The following information was validated with the patient. Source: old records reviewed Medical History Asthma Hyperthyroidism Postablative hypothyroidism Primary hyperparathyroidism Vitamin D deficiency Surgical History History of carpal tunnel release of both wrists History of esophagogastroduodenoscopy (EGD) Hx of cataract removal with insertion of prosthetic lens Hx of cholecystectomy Hx of colonoscopy Hx of endoscopy Hx of hysterectomy Hx of lithotripsy S/P subtotal parathyroidectomy Family History Family History Father No problems noted. Mother No problems noted. Social History Social History Alcohol intake: never Patient Tobacco Use Status: Never used Tobacco Advance Directives: No Advance Directives Information Provided: No Physical Exam Vital Signs: Vital Signs: Last Vital Signs Temp 99 F 12/09/21 08:41 Pulse 73 12/09/21 08:41 Resp 16 12/09/21 08:41 BP 134/79 12/09/21 08:41 Pulse Ox 95 12/09/21 08:41 BMI result Body Mass Index 27.2 Const: General: cooperative, no acute distress, alert and awake Nutritional Appearance: well nourished Orientation/consciousness: patient oriented x3 Limitations: no limitations HENMT: Head: Yes normal to inspection and Yes atraumatic Ears: hearing grossly normal bilaterally and external ears normal General nose exam: Normal external nose present, no nasal discharge noted and no epistaxis Face and sinus: Yes normal facial exam, No abrasion and No laceration Mouth: Normal oral and palatal mucosa present, no drooling and no muffled voice Eyes: General: appearance normal, both eyes and all related structures Periorbital: periorbital findings normal Eyelids: Yes eyelids normal Conjunctivae: conjunctivae normal Pupils: Equal, round and reactive pupils present EOM: EOMs intact bilaterally Neck: Neck: Yes normal visual inspection, Yes full ROM and Yes no lymphadenopathy Chest: Chest palpation & inspection: normal inspection of the chest Resp: Effort & Inspection: normal respiratory effort and able to speak in complete sentences Auscultation: clear to auscultation bilaterally Cardio: Rate: regular rate Rhythm: regular rhythm GI: Inspection: Yes normal to inspection Neuro: General: patient oriented x3 and moves all extremities Cranial nerves: Yes Equal, round and reactive pupils present Cognition (Neuro): normal cognition Motor exam (neuro): 5/5 motor strength present throughout Sensory Exam: Normal double simultaneous stimulation for sensation Coordination: [id number] test normal Extrem: General: Yes normal to inspection, Yes full ROM and Yes capillary refill normal Psych: Appearance: grossly normal Mental Status: mental status grossly normal Affect: normal affect Attitude: cooperative Thought process: Normal thought process present Thought content: Normal thought content present Insight: Good insight present (Psych) MDM - Extremity Injury (Lower) MDM Narrative Medical decision making narrative: Patient is a 71 year old female presenting to the emergency department today with right hip pain. Patient's physical exam was unremarkable. Patient's right hip x-ray showed no acute process. I explained my physical exam findings as well as all test results to the patient and the patient's daughter. I answered all questions asked by the patient and the patient's daughter. Patient received IM Toradol and PO Flexeril which she stated helped her pain significantly. I stressed the importance of the patient taking her medication as prescribed. I stressed the importance of the patient following up with her primary care provider and an orthopedist. I stressed the importance of the patient returning to the emergency department immediately if her symptoms were to worsen or if she were to develop any dizziness, shortness of breath, difficulty breathing, chest pain, blurry vision, loss of vision, nausea, vomiting, abdominal pain, fever, chills, back pain, or any other complaints. Patient and the patient's daughter verbalized agreement and understanding with this treatment plan and discharge. Differential Diagnosis Differential diagnosis: Likely fracture of femur (arthritis) and fracture of hip Medical Records Attestation: I reviewed the patient's medical records. Imaging Data Right hip, knee, and pelvis: Attestation: I personally reviewed and interpreted this imaging study as follows: My impression: No acute fractures. Radiologist's impression: EXAMINATION: RIGHT KNEE AND RIGHT HIP X-RAYS CLINICAL INFORMATION: Pain? COMPARISON: Previous x-rays from 2019 and 2020 TECHNIQUE: 4 views of the right knee and 2 views of the right hip and one views of the pelvis? FINDINGS: Right knee: Bone alignment is normal. No fracture or dislocation is seen. The joint spaces are normal. There is no joint effusion. Right hip and pelvis: Bone alignment is normal. No fracture or dislocation is seen. There is a small superior lateral acetabular osteophyte. The joint space is otherwise normal. Bones of the pelvis are normal. There are degenerative changes of the visualized lower lumbar spine. Soft tissues are normal. XR/XR knee RT 4V IMPRESSION: Right knee: Unremarkable exam ? Right hip and pelvis: Mild degenerative changes at the right hip joint. Dictated By: Belén Hui MD Signed By: Electronically signed by Belén Hui MD 12/09/21 0944 Discharge Plan Discharge Clinical Impression: Arthritis, Acute hip pain Patient Disposition: Home, Self-Care Instructions: Osteoarthritis (ED), Hip Pain (ED), Arthrodesis (DC) Additional Instructions: Call to schedule a follow up appointment with an Orthopedic provider. Follow up with your primary care provider. Return to the emergency department immediately if your symptoms worsen or if you develop any dizziness, shortness of breath, difficulty breathing, chest pain, blurry vision, loss of vision, nausea, vomiting, abdominal pain, fever, chills, back pain, or any other complaints. Prescriptions: No Action levothyroxine 50 mcg tablet 50 mcg PO DAILY 90 Days Qty: 90 3RF Rx Instructions: Dose decreased to 50 mcg please discontinue prior prescription of 75 mcg cyclobenzaprine 10 mg tablet 10 mg PO TID PRN (Reason: muscle spasm) Qty: 14 0RF zolpidem 10 mg tablet 10 mg PO BEDTIME PRN0RF mirtazapine 30 mg tablet 30 mg PO BEDTIME 0RF citalopram 10 mg tablet 10 mg PO DAILY 0RF albuterol sulfate 2.5 mg /3 mL (0.083 %) solution for nebulization inhalation Q6H PRN (Reason: asthma) 0RF atorvastatin 40 mg tablet 40 mg PO DAILY 0RF montelukast 10 mg tablet 10 mg PO DAILY 0RF cetirizine 10 mg tablet 10 mg PO DAILY PRN0RF multivitamin Tablet 1 tab PO DAILY 0RF acetaminophen 500 mg tablet 1,000 mg PO Q6H PRN (Reason: pain) 0RF budesonide-formoterol 160-4.5 mcg/actuation HFA aerosol inhaler 2 puff PO BID 0RF clobetasol 0.05 % ointment topical DAILY 0RF calcium citrate 250 mg calcium tablet 500 mg PO BID 90 Days Qty: 360 1RF Linzess 72 mcg capsule 72 mcg PO DAILY Qty: 90 2RF Citrucel 500 mg tablet 500 mg PO DAILY Qty: 90 2RF Rx Instructions: libby todas las mananas con un vaso de agua lleno ascorbate calcium (vitamin C) 500 mg tablet 1 g PO Q6H 0RF sucralfate 100 mg/mL suspension 10 ml PO BEDTIME Qty: 400 3RF pantoprazole 40 mg tablet,delayed release (DR/EC) 40 mg PO DAILY Qty: 90 2RF Rx Instructions: libby un comprimido media hora antes del desayuno Referrals: Fidel Miller MD [Physician] - 2 days Rea Alegre MD [Primary Care Provider] - 2 days Print Language: Setswana
[2021-12-09] MEDS: Cyclobenzaprine HCl 10 MG TABLET PO (10:14)
[2021-12-09] MEDS: Ketorolac Tromethamine 15 MG/ML VIAL IM (10:14)
== END 2021-12-09 10:39 | disposition home or self-care (01) ==
PROVIDERS: Emergency Provider Emergency Medicine; PCP Family Medicine
DX: M16.11 Unilateral primary osteoarthritis, right hip (principal); M25.551 Pain in right hip
CPT/HCPCS: 73502; 73564; 96372; 99283; 99284; J1885

== ENCOUNTER → 2022-01-02 08:32 | Outpatient (BNVA) | payer MEDICARE, SELFPAY | PROVIDERS: PCP Family Medicine; Visit Provider Physician Assistant | DX: M25.551 Pain in right hip (principal) | CPT/HCPCS: 99202 ==

== ENCOUNTER → 2022-01-24 08:49 | Outpatient (BNVA) | payer MEDICARE, SELFPAY | PROVIDERS: PCP Family Medicine; Referring Provider Family Medicine; Visit Provider Nurse Practitioner Family | DX: K21.9 Gastro-esophageal reflux disease without esophagitis (principal); K59.04 Chronic idiopathic constipation | CPT/HCPCS: 99212 ==

== ENCOUNTER 2022-03-19 20:32 | Emergency (ER) | payer MEDICARE, SELFPAY ==
--- NOTE | 2022-03-19 | ECG_ITS ---
Test Reason : OVERDOSE Blood Pressure : / mmHG Vent. Rate : 061 BPM Atrial Rate : 061 BPM P-R Int : 134 ms QRS Dur : 084 ms QT Int : 432 ms P-R-T Axes : 032 -07 019 degrees QTc Int : 434 ms Normal sinus rhythm Nonspecific T wave abnormality Abnormal ECG When compared with ECG of 15-NOV-2021 11:55, No significant change was found Referred By: Generic ED Physician Electronically Signed By:MELE OREILLY
--- NOTE | ~2022-03-19 | XR_ITS ---
EXAMINATION: XR CHEST CLINICAL INFORMATION: Cough. COMPARISON: None TECHNIQUE: Frontal view of the chest was obtained. FINDINGS: The lungs are well-expanded and clear acute pneumonic process. The heart size and pulmonary vascularity is normal. There is mild dextroscoliosis dorsal spine. No lytic process. XR/XR chest 1V IMPRESSION: Unremarkable chest exam. Mild dextroscoliosis dorsal spine.
[2022-03-19 21:07] VITALS: BP 166/96; PULSE 69; RESP 18; TEMP 37.1; O2SAT 92; BMI 27.2
--- NOTE | 2022-03-19 21:26 | ED_ITS ---
HPI - Overdose General Chief Complaint: Overdose Stated Complaint: wellness check Time Seen by Provider: 03/19/22 21:20 Source: patient and family Mode of arrival: ambulatory Limitations: no limitations History of Present Illness HPI Narrative: Patient history of dementia insomnia on Ambien 10 mg every night tonight at 17:00 by mistake patient took 3 tablets daughter found her will confused and groggy also patient took her night dose of mirtazapine 30 mg. No history of depression it was purely an accident per daughter who lives with the patient also patient has been coughing for last few does have history of asthma no fever no chills patient already vaccinated against COVID, no fever no chills Related Data Home Medications Medication Instructions Recorded Confirmed acetaminophen 500 mg tablet 1,000 mg PO Q6H PRN pain 10/27/20 05/23/21 albuterol sulfate mg inhalation Q6H PRN asthma 10/27/20 05/23/21 atorvastatin 40 mg tablet 40 mg PO DAILY 10/27/20 05/23/21 budesonide-formoterol HFA 160 2 puff PO BID 10/27/20 05/23/21 mcg-4.5 mcg/actuation aerosol inhaler cetirizine 10 mg tablet 10 mg PO DAILY PRN 10/27/20 05/23/21 citalopram 10 mg tablet 10 mg PO DAILY 10/27/20 05/23/21 clobetasol 0.05 % topical ointment g topical DAILY 10/27/20 05/23/21 mirtazapine 30 mg tablet 30 mg PO BEDTIME 10/27/20 05/23/21 montelukast 10 mg tablet 10 mg PO DAILY 10/27/20 05/23/21 multivitamin 1 tab PO DAILY 10/27/20 05/23/21 zolpidem 10 mg tablet 10 mg PO BEDTIME PRN 10/27/20 05/23/21 ascorbate calcium (vitamin C) 500 1 g PO Q6H 12/05/21 mg tablet prednisone 50 mg tablet 50 mg PO DAILY 01/24/22 Previous Rx's Medication Instructions Recorded calcium citrate 500 mg PO BID 90 days #360 tabs 03/03/21 methylcellulose (laxative) 500 mg 500 mg PO DAILY #90 tabs 09/05/21 tablet (Citrucel) cyclobenzaprine 10 mg tablet 10 mg PO TID PRN muscle spasm #14 11/15/21 tabs pantoprazole 40 mg tablet,delayed 40 mg PO DAILY #90 tabs 12/05/21 release sucralfate 100 mg/mL oral 10 ml PO BEDTIME #400 mL 12/05/21 suspension levothyroxine 50 mcg tablet 50 mcg PO DAILY 90 days #90 tabs 12/15/21 linaclotide 72 mcg capsule 72 mcg PO DAILY #90 caps 01/24/22 (Linzess) meloxicam 15 mg tablet 15 mg PO DAILY #30 tabs 03/06/22 Allergies Allergy/AdvReac Type Severity Reaction Status Date / Time morphine [MORPHINE] Allergy Unknown RASH Verified 01/24/22 09:02 Review of Systems Review of Systems: Yes all other systems are reviewed and are negative FORMERLY [facility], [facility]1983 Past Medical History Medical History Asthma Surgical History History of carpal tunnel release of both wrists History of esophagogastroduodenoscopy (EGD) Hx of cataract removal with insertion of prosthetic lens Hx of cholecystectomy Hx of colonoscopy Hx of endoscopy Hx of hysterectomy Hx of lithotripsy S/P subtotal parathyroidectomy Family History Family History Father No problems noted. Mother No problems noted. Social History Social History Alcohol intake: never Patient Tobacco Use Status: Never used Tobacco Advance Directives: No Advance Directives Information Provided: No Physical Exam Vital Signs: Vital Signs: Last Vital Signs Temp 98.3 F 03/19/22 22:07 Pulse 63 03/19/22 22:07 Resp 20 03/19/22 22:07 BP 181/88 H 03/19/22 22:07 Pulse Ox 91 L 03/19/22 22:07 O2 Del Method 03/19/22 22:07 BMI result Body Mass Index 27.2 Appearance: Alert. Oriented X3. No acute distress. Eyes: PERRLA, No Nystagmus ENT: Pharynx normal. Oral Mucosa moist Neck: Normal inspection. Neck supple. CVS: Normal heart rate and rhythm. Pulses normal. Respiratory: No respiratory distress. Equal air entry bilateral, but a prolonged expiration with crackles bilateral Abdomen: Soft and nontender. Bowel sounds are present, no mass palpable, no CVA tenderness Skin: Skin warm and dry. Normal skin color. Normal skin turgor. Extremities: No lower extremity edema. No calf tenderness Neuro: Oriented X 3. No motor deficit. No sensory deficit.No cerebellar signs , cranial nerves II-XII intact MDM - Overdose MDM Narrative Medical decision making narrative: Patient has stable labs accidental overdose on Ambien says that she could not sleep for last few nights. At this time patient alert oriented x3 will keep here for observation, discharged in the morning 6 am: Patient alert and awake slept all night with stable vitals with discharge patient home with family Lab Data Attestation: I reviewed the patient's lab results. Result diagrams: 03/19/22 22:10 03/19/22 22:10 Labs: Lab Results 03/19/22 03/19/22 03/19/22 Range/Units 22:10 22:10 22:10 WBC 6.7 (4.8-10.8) X10*3/uL RBC 4.11 L (4.20-5.50) X10*6/uL Hgb 12.7 (12.0-16.0) g/dl Hct 39.6 (37.0-47.0) % MCV 96.4 (80.0-98.0) fL MCH 30.9 (27.0-33.0) pg MCHC 32.1 (31.0-35.0) g/dl RDW 13.7 (11.0-16.0) % Plt Count 222 (160-400) X10*3/uL MPV 10.8 (9.4-12.3) fL Immature Gran % (Auto) 0.1 (0.0-0.4) % Neut % (Auto) 53.4 (45-73) % Lymph % (Auto) 33.7 (20-40) % Reeves % (Auto) 7.0 (2-11) % Eos % (Auto) 5.2 H (0-4) % Baso % (Auto) 0.6 (0-2) % Lymph # (Auto) 2.3 (1.2-4.9) X10*3/uL Reeves # (Auto) 0.5 (0.1-1.2) X10*3/uL Eos # (Auto) 0.4 (0.0-0.4) X10*3/uL Baso # (Auto) 0.0 (0.0-0.2) X10*3/uL Abs Immat Gran (auto) 0.01 (0.00-0.03) X10*3/uL Absolute Neuts (auto) 3.6 (2.0-8.3) x10*3/uL Absolute Nucleated RBC 0.000 (0.0-0.012) X10*3/uL Nucleated RBC % (auto) 0.0 (0.0-0.2) /100WBC Sodium 143 (135-145) mmol/L Potassium 4.2 (3.3-5.1) mmol/L Chloride 104 (96-108) mmol/L Carbon Dioxide 32 H (22-29) mmol/L Anion Gap 11 L (12-20) BUN 21 H D (9-16) mg/dL Creatinine 1.05 (0.5-1.4) mg/dL Estim Creat Clear Calc 37.9 Estimated GFR 51 Random Glucose 112 (60-115) mg/dL Calcium 9.0 (8.4-10.2) mg/dL Total Bilirubin 0.5 (0.0-1.0) mg/dL Direct Bilirubin 0.2 (0.0-0.5) mg/dL AST 29 (5-31) U/L ALT 34 H (0-31) U/L Alkaline Phosphatase 92 (39-117) U/L Troponin I High Sens < 3.5 (<3.5-17.0) ng/L Total Protein 7.1 (6.5-8.0) g/dL Albumin 4.2 (3.5-5.0) g/dL Lipase 40 (8-78) U/L Urine Color Urine Appearance Urine pH (5.0-8.0) Ur Specific [place] (1.005-1.025) Urine Protein (NEG-TRACE) MG/DL Urine Glucose (UA) (NEG) MG/DL Urine Ketones (NEG) MG/DL Urine Blood (NEG) Urine Nitrite (NEG) Ur Leukocyte Esterase (NEG) Urine RBC (0) /HPF Urine WBC (0-4) /HPF Urine WBC Clumps Ur Squamous Epith Cells /LPF Urine Bacteria /LPF Urine Mucus /LPF Urine Opiates Screen (Not Detect) Urine Fentanyl Screen (Not Detect) Ur Barbiturates Screen (Not Detect) Ur Phencyclidine Scrn (Not Detect) Ur Amphetamines Screen (Not Detect) U Benzodiazepines Scrn (Not Detect) Urine Cocaine Screen (Not Detect) U Marijuana (THC) Screen (Not Detect) COVID-19 (RUTHY) (Negative) COVID-19 Clin Com 03/19/22 03/19/22 03/19/22 Range/Units 22:10 22:42 22:42 WBC (4.8-10.8) X10*3/uL RBC (4.20-5.50) X10*6/uL Hgb (12.0-16.0) g/dl Hct (37.0-47.0) % MCV (80.0-98.0) fL MCH (27.0-33.0) pg MCHC (31.0-35.0) g/dl RDW (11.0-16.0) % Plt Count (160-400) X10*3/uL MPV (9.4-12.3) fL Immature Gran % (Auto) (0.0-0.4) % Neut % (Auto) (45-73) % Lymph % (Auto) (20-40) % Reeves % (Auto) (2-11) % Eos % (Auto) (0-4) % Baso % (Auto) (0-2) % Lymph # (Auto) (1.2-4.9) X10*3/uL Reeves # (Auto) (0.1-1.2) X10*3/uL Eos # (Auto) (0.0-0.4) X10*3/uL Baso # (Auto) (0.0-0.2) X10*3/uL Abs Immat Gran (auto) (0.00-0.03) X10*3/uL Absolute Neuts (auto) (2.0-8.3) x10*3/uL Absolute Nucleated RBC (0.0-0.012) X10*3/uL Nucleated RBC % (auto) (0.0-0.2) /100WBC Sodium (135-145) mmol/L Potassium (3.3-5.1) mmol/L Chloride (96-108) mmol/L Carbon Dioxide (22-29) mmol/L Anion Gap (12-20) BUN (9-16) mg/dL Creatinine (0.5-1.4) mg/dL Estim Creat Clear Calc Estimated GFR Random Glucose (60-115) mg/dL Calcium (8.4-10.2) mg/dL Total Bilirubin (0.0-1.0) mg/dL Direct Bilirubin (0.0-0.5) mg/dL AST (5-31) U/L ALT (0-31) U/L Alkaline Phosphatase (39-117) U/L Troponin I High Sens (<3.5-17.0) ng/L Total Protein (6.5-8.0) g/dL Albumin (3.5-5.0) g/dL Lipase (8-78) U/L Urine Color YELLOW Urine Appearance HAZY Urine pH 7.5 (5.0-8.0) Ur Specific [place] <= 1.005 (1.005-1.025) Urine Protein NEG (NEG-TRACE) MG/DL Urine Glucose (UA) NEG (NEG) MG/DL Urine Ketones NEG (NEG) MG/DL Urine Blood NEG (NEG) Urine Nitrite NEG (NEG) Ur Leukocyte Esterase 3+ H (NEG) Urine RBC 1-4 (0) /HPF Urine WBC 5-9 H (0-4) /HPF Urine WBC Clumps NOTED Ur Squamous Epith Cells TRACE /LPF Urine Bacteria TRACE /LPF Urine Mucus 1+ /LPF Urine Opiates Screen Not Detected (Not Detect) Urine Fentanyl Screen Not Detected (Not Detect) Ur Barbiturates Screen Not Detected (Not Detect) Ur Phencyclidine Scrn Not Detected (Not Detect) Ur Amphetamines Screen Not Detected (Not Detect) U Benzodiazepines Scrn Not Detected (Not Detect) Urine Cocaine Screen Not Detected (Not Detect) U Marijuana (THC) Screen Not Detected (Not Detect) COVID-19 (RUTHY) Negative (Negative) COVID-19 Clin Com See Note ECG Data Interpretation: Normal sinus rhythm heart rate 61 beats per minute nonspecific Street no acute ischemia Discharge Plan Discharge Clinical Impression: Accidental drug ingestion Patient Disposition: Home, Self-Care Instructions: Adult Overdose (ED) Additional Instructions: Keep the medications safe place and do not take over the prescribed dosage Follow with PCP if any concerns Prescriptions: No Action levothyroxine 50 mcg tablet 50 mcg PO DAILY 90 Days Qty: 90 3RF Rx Instructions: Dose decreased to 50 mcg please discontinue prior prescription of 75 mcg meloxicam 15 mg tablet 15 mg PO DAILY Qty: 30 0RF cyclobenzaprine 10 mg tablet 10 mg PO TID PRN (Reason: muscle spasm) Qty: 14 0RF zolpidem 10 mg tablet 10 mg PO BEDTIME PRN mirtazapine 30 mg tablet 30 mg PO BEDTIME citalopram 10 mg tablet 10 mg PO DAILY albuterol sulfate 2.5 mg /3 mL (0.083 %) solution for nebulization inhalation Q6H PRN (Reason: asthma) atorvastatin 40 mg tablet 40 mg PO DAILY montelukast 10 mg tablet 10 mg PO DAILY cetirizine 10 mg tablet 10 mg PO DAILY PRN multivitamin Tablet 1 tab PO DAILY acetaminophen 500 mg tablet 1,000 mg PO Q6H PRN (Reason: pain) budesonide-formoterol 160-4.5 mcg/actuation HFA aerosol inhaler 2 puff PO BID clobetasol 0.05 % ointment topical DAILY calcium citrate 250 mg calcium tablet 500 mg PO BID 90 Days Qty: 360 1RF Citrucel 500 mg tablet 500 mg PO DAILY Qty: 90 2RF Rx Instructions: libby todas las mananas con un vaso de [place] prednisone 50 mg tablet 50 mg PO DAILY Linzess 72 mcg capsule 72 mcg PO DAILY Qty: 90 2RF ascorbate calcium (vitamin C) 500 mg tablet 1 g PO Q6H sucralfate 100 mg/mL suspension 10 ml PO BEDTIME Qty: 400 3RF pantoprazole 40 mg tablet,delayed release (DR/EC) 40 mg PO DAILY Qty: 90 2RF Rx Instructions: libby un comprimido media hora antes del desayuno
[2022-03-19] MEDS: Albuterol/Iprat 2.5/0.5MG 3 ML AMPUL.NEB INHALE (21:46)
[2022-03-19 21:48] VITALS: PULSE 69; RESP 18; O2SAT 97
[2022-03-19 22:07] VITALS: BP 181/88; PULSE 63; RESP 20; TEMP 36.8; O2SAT 91
[2022-03-19 22:17] LABS: MANUAL DIFF FLAG NO
[2022-03-19 22:21] LABS: Basophils Percent Auto 0.6 % (0-2); Eosinophils Absolute Auto 0.4 X10*3/uL (0.0-0.4); Eosinophils Percent Auto 5.2 % (0-4); Hematocrit 39.6 % (37.0-47.0); Hemoglobin 12.7 g/dl (12.0-16.0); Imm Gran Abs Auto 0.01 X10*3/uL (0.00-0.03); Imm Gran Pct Auto 0.1 % (0.0-0.4); Lymphocytes Absolute Auto 2.3 X10*3/uL (1.2-4.9); Lymphocytes Percent Auto 33.7 % (20-40); Mean Corpuscular HGB Conc 32.1 g/dl (31.0-35.0); Mean Corpuscular Hemoglobin 30.9 pg (27.0-33.0); Mean Corpuscular Volume 96.4 fL (80.0-98.0); Mean Platelet Volume 10.8 fL (9.4-12.3); Monocytes Absolute Auto 0.5 X10*3/uL (0.1-1.2); Neutrophils Absolute Auto 3.6 x10*3/uL (2.0-8.3); Neutrophils Percent Auto 53.4 % (45-73); Platelet Count 222 X10*3/uL (160-400); Red Blood Count 4.11 X10*6/uL (4.20-5.50); Red Cell Distribution Width 13.7 % (11.0-16.0); White Blood Count 6.7 X10*3/uL (4.8-10.8)
[2022-03-19 22:40] LABS: Alanine Aminotransferase 34 U/L (0-31); Albumin Level 4.2 g/dL (3.5-5.0); Alkaline Phosphatase 92 U/L (39-117); Anion Gap 11 (12-20); Aspartate Amino Transferase 29 U/L (5-31); Bilirubin Direct 0.2 mg/dL (0.0-0.5); Bilirubin Total 0.5 mg/dL (0.0-1.0); Blood Urea Nitrogen 21 mg/dL (9-16); Carbon Dioxide 32 mmol/L (22-29); Chloride 104 mmol/L (96-108); Creatinine Clr Calc Pharmacy 37.9; Estimated Glomerular Filt Rate 51; Glucose Random 112 mg/dL (60-115); Lipase 40 U/L (8-78); Potassium 4.2 mmol/L (3.3-5.1); Sodium 143 mmol/L (135-145); Total Protein 7.1 g/dL (6.5-8.0)
[2022-03-19 22:41] LABS: Troponin-I High Sensitivity < 3.5 ng/L (<3.5-17.0)
[2022-03-19 22:59] LABS: Appearance Urine HAZY; Color Urine YELLOW; Glucose Urine UA NEG (NEG); Leukocyte Esterase Urine 3+ (NEG); Nitrite Urine NEG (NEG); PH 7.5 (5.0-8.0); Specific Gravity - Urine <= 1.005 (1.005-1.025); UACC Culture Trigger YES; Urine Blood NEG (NEG); Urine Ketones NEG (NEG); Urine Protein NEG (NEG-TRACE)
[2022-03-19 23:01] LABS: COVID-19 Test Negative (Negative)
[2022-03-19 23:10] LABS: Bacteria Urine TRACE /LPF; Mucus Urine 1+ /LPF; Squamous Epithelial Cell Urine TRACE /LPF; WBC Clumps Urine NOTED
[2022-03-19 23:19] LABS: Amphetamine Screen Urine Not Detected (Not Detect); Barbiturates, Urine Not Detected (Not Detect); Benzodiazepines Screen Urine Not Detected (Not Detect); Cannabinoid Screen Urine Not Detected (Not Detect); Cocaine Screen Urine Not Detected (Not Detect); Fentanyl, urine Not Detected (Not Detect); Opiate Screen Urine Not Detected (Not Detect); Phencyclidine Screen Urine Not Detected (Not Detect)
--- NOTE | 2022-03-20 05:56 | PC.NURSE ---
Daughter Barbi ([phone]) planning to p/u pt @ 0630. Pt sleeping in bed, easily arousable to stimuli, denies pain/discomfort, states she is ready to go home.
[2022-03-20 06:01] VITALS: BP 140/85; PULSE 57; RESP 16; O2SAT 95
== END 2022-03-20 06:32 | disposition home or self-care (01) ==
PROVIDERS: Emergency Provider Internal Medicine; PCP Family Medicine
DX: T42.6X1A Poisoning by other antiepileptic and sedative-hypnotic drugs, accidental (unintentional), initial encounter (principal); R41.0 Disorientation, unspecified; Y92.9 Unspecified place or not applicable; J45.909 Unspecified asthma, uncomplicated; G47.00 Insomnia, unspecified; F03.90 Unspecified dementia, unspecified severity, without behavioral disturbance, psychotic disturbance, mood disturbance, and anxiety; Z20.822 Contact with and (suspected) exposure to COVID-19
CPT/HCPCS: 36415; 71045; 80048; 80076; 80307; 81001; 81003; 83690; 84484; 85025; 87086; 87147; 87635; 93005; 94640; 99284

== ENCOUNTER → 2022-03-28 09:02 | Outpatient (BNVA) | payer MEDICARE, SELFPAY | PROVIDERS: PCP Family Medicine; Referring Provider Family Medicine; Visit Provider Nurse Practitioner Family | DX: K21.9 Gastro-esophageal reflux disease without esophagitis (principal); K59.04 Chronic idiopathic constipation; Z79.899 Other long term (current) drug therapy | CPT/HCPCS: 99212 ==

== ENCOUNTER 2022-05-17 08:05 | Outpatient (REF) | payer MEDICARE, SELFPAY ==
[2022-05-17 08:44] LABS: Alanine Aminotransferase 24 U/L (0-31); Albumin Level 4.2 g/dL (3.5-5.0); Alkaline Phosphatase 85 U/L (39-117); Anion Gap 13 (12-20); Aspartate Amino Transferase 22 U/L (5-31); Bilirubin Total 0.5 mg/dL (0.0-1.0); Blood Urea Nitrogen 17 mg/dL (9-16); Calcium 9.1 mg/dL (8.4-10.2); Carbon Dioxide 31 mmol/L (22-29); Chloride 106 mmol/L (96-108); Estimated Glomerular Filt Rate > 60; Glucose Random 92 mg/dL (60-115); Phosphorus 3.6 mg/dL (2.7-4.5); Potassium 4.6 mmol/L (3.3-5.1); Sodium 145 mmol/L (135-145); Total Protein 7.2 g/dL (6.5-8.0)
[2022-05-17 09:06] LABS: Vitamin D 25-OH Total 49.9 ng/mL (>30)
[2022-05-18 16:13] LABS: Calcium (PTHI) 9.2 mg/dL (8.6-10.4); PTHI 39 pg/mL (16-77)
== END 2022-05-17 08:06 | disposition home or self-care (01) ==
LOC: HO.LAB 08:05
PROVIDERS: PCP Family Medicine; Visit Provider Internal Medicine
DX: E21.0 Primary hyperparathyroidism (principal); E55.9 Vitamin D deficiency, unspecified
CPT/HCPCS: 36415; 80053; 82306; 83970; 84100

== ENCOUNTER → 2022-05-22 10:02 | Outpatient (BNVA) | payer MEDICARE, SELFPAY | PROVIDERS: PCP Registered Nurse; Visit Provider Internal Medicine | DX: E21.0 Primary hyperparathyroidism (principal); E55.9 Vitamin D deficiency, unspecified; M81.0 Age-related osteoporosis without current pathological fracture; I10 Essential (primary) hypertension; Z79.899 Other long term (current) drug therapy | CPT/HCPCS: 99212 ==

== ENCOUNTER 2022-08-16 08:09 | Outpatient (REF) | payer MEDICARE, SELFPAY ==
--- NOTE | ~2022-08-16 | MM_ITS ---
EXAMINATION: MM SCREENING DIGITAL BREAST TOMOSYNTHESIS, BILATERAL CLINICAL INFORMATION: Screening. Asymptomatic. The lifetime risk of breast cancer based on the Tyrer-Cuzick Model is 2%. COMPARISON: Mammography: 08/10/2021, 03/29/2020, 03/24/2019 TECHNIQUE: Digital breast tomosynthesis is performed in both the craniocaudal and mediolateral oblique views along with computer-aided detection (CAD). Synthesized 2D images are generated from the tomosynthesis. Additional left MLO view is provided. FINDINGS: There are scattered areas of fibroglandular density (ACR BI-RADS breast composition Category b). There are no significant masses, abnormal calcifications, or other abnormalities. No developing density or architectural abnormality. The axilla and skin contours are unremarkable. No significant changes from prior exams. MM/MM tomosynthesis screening BI IMPRESSION: No mammographic evidence of malignancy. ASSESSMENT: BI-RADS 1: Negative RECOMMENDATION: Routine annual mammography screening. This patient's information was entered into a reminder system with a target due date for their next mammogram.
== END 2022-08-16 08:10 | disposition home or self-care (01) ==
LOC: HO.MAMMO 08:09
PROVIDERS: PCP Registered Nurse; Visit Provider Registered Nurse
DX: Z12.31 Encounter for screening mammogram for malignant neoplasm of breast (principal)
CPT/HCPCS: 77063; 77067

== ENCOUNTER 2022-08-28 08:17 | Day surgery (SDC) | payer MEDICARE, SELFPAY ==
[2022-08-23 10:06] VITALS: BMI 27.6
--- NOTE | 2022-08-25 10:09 | HO.ANESPROP2 ---
Documented by User: Cindy Thompson NP 08/25/22 10:10 HPI - Anesthesia Eval Consult details Narrative: 71yo F for Upper Endoscopy and Colonoscopy PMFSH Active Problems Active Problems: All Active Problems (Updated 05/22/22 @ 10:43 by Belen Pereira DO) Hypertension (Acute) Right hip pain (Acute) Lumbar radicular pain (Acute) Osteoporosis (Acute) Hyperthyroidism (Acute) Vitamin D deficiency (Acute) Primary hyperparathyroidism (Acute) Postablative hypothyroidism (Acute) Past Medical History Medical History Asthma Hypertension Hyperthyroidism Postablative hypothyroidism Primary hyperparathyroidism Vitamin D deficiency Family History Family History Father No problems noted. Mother No problems noted. Surgical History Surgical History History of carpal tunnel release of both wrists History of esophagogastroduodenoscopy (EGD) Hx of cataract removal with insertion of prosthetic lens Hx of cholecystectomy Hx of colonoscopy Hx of endoscopy Hx of hysterectomy Hx of lithotripsy S/P subtotal parathyroidectomy Social History Social History Household Members: Family Alcohol intake: never Patient Tobacco Use Status: Never used Tobacco Use of substances other than those prescribed or required for medical reasons: No Are you DNR?: No Advance Directives: No Advance Directives Information Provided: Yes Patient : No Meds Allergies Allergy/AdvReac Type Severity Reaction Status Date / Time morphine [MORPHINE] Allergy Unknown RASH Verified 05/22/22 10:33 Home Medications Medication Instructions Recorded Confirmed Last Taken Type acetaminophen 500 mg tablet 1,000 mg PO Q6H PRN pain 10/27/20 05/22/22 Unknown History albuterol sulfate 2.5 mg/3 mL mg inhalation Q6H PRN asthma 10/27/20 05/22/22 Unknown History (0.083 %) solution for nebulization atorvastatin 40 mg tablet 40 mg PO DAILY 10/27/20 05/22/22 Unknown History budesonide-formoterol HFA 160 2 puff PO BID 10/27/20 05/22/22 Unknown History mcg-4.5 mcg/actuation aerosol inhaler cetirizine 10 mg tablet 10 mg PO DAILY PRN 10/27/20 05/22/22 Unknown History citalopram 10 mg tablet 10 mg PO DAILY 10/27/20 05/22/22 Unknown History clobetasol 0.05 % topical ointment g topical DAILY 10/27/20 05/22/22 Unknown History mirtazapine 30 mg tablet 30 mg PO BEDTIME 10/27/20 05/22/22 Unknown History montelukast 10 mg tablet 10 mg PO DAILY 10/27/20 05/22/22 Unknown History multivitamin 1 tab PO DAILY 10/27/20 05/22/22 Unknown History zolpidem 10 mg tablet 10 mg PO BEDTIME PRN 10/27/20 05/22/22 Unknown History ascorbate calcium (vitamin C) 500 1 g PO Q6H 03/28/22 05/22/22 Unknown History mg tablet Exam Exam Date and Time: August 25, 2022 1009 Height,Weight and Vital Signs: Height 4 ft 11 in Weight 62.142 kg Pertinent Lab Results Pertinent Lab Results: Laboratory Tests 03/19/22 05/17/22 22:10 08:10 WBC 6.7 Hgb 12.7 Hct 39.6 Plt Count 222 Sodium 145 Potassium 4.6 Chloride 106 Carbon Dioxide 31 H BUN 17 H Creatinine 0.89 Assessment and Plan Assessment Anesthesia Assessment: Chart Reviewed Documented by User: Aundrea Simms MD 08/28/22 09:50 COUNT INCLUDES THE [facility] Past Medical History Medical History Asthma Hypertension Hyperthyroidism Postablative hypothyroidism Primary hyperparathyroidism Vitamin D deficiency Functional capacity: independent ambulation Patient : No Family History Family History Father No problems noted. Mother No problems noted. Family history of problems with anesthesia: No Surgical History Surgical History History of carpal tunnel release of both wrists History of esophagogastroduodenoscopy (EGD) Hx of cataract removal with insertion of prosthetic lens Hx of cholecystectomy Hx of colonoscopy Hx of endoscopy Hx of hysterectomy Hx of lithotripsy S/P subtotal parathyroidectomy History of Problems with Anesthesia: No Social History Social History Household Members: Family Alcohol intake: never Patient Tobacco Use Status: Never used Tobacco Use of substances other than those prescribed or required for medical reasons: No Are you DNR?: No Advance Directives: No Advance Directives Information Provided: Yes Patient : No Meds Allergies Allergy/AdvReac Type Severity Reaction Status Date / Time morphine [MORPHINE] Allergy Unknown RASH Verified 05/22/22 10:33 Home Medications Medication Instructions Recorded Confirmed Last Taken Type acetaminophen 500 mg tablet 1,000 mg PO Q6H PRN pain 10/27/20 05/22/22 Unknown History albuterol sulfate 2.5 mg/3 mL mg inhalation Q6H PRN asthma 10/27/20 05/22/22 Unknown History (0.083 %) solution for nebulization atorvastatin 40 mg tablet 40 mg PO DAILY 10/27/20 05/22/22 Unknown History budesonide-formoterol HFA 160 2 puff PO BID 10/27/20 05/22/22 Unknown History mcg-4.5 mcg/actuation aerosol inhaler cetirizine 10 mg tablet 10 mg PO DAILY PRN 10/27/20 05/22/22 Unknown History citalopram 10 mg tablet 10 mg PO DAILY 10/27/20 05/22/22 Unknown History clobetasol 0.05 % topical ointment g topical DAILY 10/27/20 05/22/22 Unknown History mirtazapine 30 mg tablet 30 mg PO BEDTIME 10/27/20 05/22/22 Unknown History montelukast 10 mg tablet 10 mg PO DAILY 10/27/20 05/22/22 Unknown History multivitamin 1 tab PO DAILY 10/27/20 05/22/22 Unknown History zolpidem 10 mg tablet 10 mg PO BEDTIME PRN 10/27/20 05/22/22 Unknown History ascorbate calcium (vitamin C) 500 1 g PO Q6H 03/28/22 05/22/22 Unknown History mg tablet Exam Airway Mallampati Class: III TM Dist: >3cm Neck ROM: Full Heart: RRR Lungs: CTA Assessment and Plan Final Anesthetic Review Family History of Problems with Anesthesia: No History of Problems with Anesthesia: No ASA Class: II Final Preanesthetic Review: No Changes in Pt Med Stat, Meds/Allgs Chart Reviewed, Consent Obtained/Reviewed and Anes Risks/Benef Reviewed Patient Risk: Low Procedure Risk: Low Anesthetic Plan Anesthetic Plan: MAC: Disposition: Standard PACU
[2022-08-28 08:52] VITALS: BP 115/69; PULSE 62; RESP 16; TEMP 36.3; O2SAT 95
[2022-08-28] MEDS: Lactated Ringers 1,000 ML 100 ML IVCONT (08:56)
--- NOTE | 2022-08-28 09:23 | P.HPSUR_ITS ---
Pre-Procedural Eval Section A Date of Service: 08/28/22 The patient is an INPATIENT: No The History & Physical has been completed within 30 days and I have reviewed it.: No Section B Chief Complaint: reflux, screening Details of Present Illness: colon cancer screening, GERD, dyspepsia Relevant Family History (Specify if Yes): No Relevant Social History: None Medical History: Significant History ( asthma, hypertension, hyperthyroidism) History of Previous Operations: Relevant previous surgery/procedure and date(s) (History of carpal tunnel release of both wrists History of esophagogastroduodenoscopy (EGD) Hx of cataract removal with insertion of prosthetic lens Hx of cholecystectomy Hx of colonoscopy Hx of endoscopy Hx of h ysterectomy Hx of lithotripsy S/P subtotal parathyroidectomy) Allergies: Allergies Allergy/AdvReac Type Severity Reaction Status Date / Time morphine [MORPHINE] Allergy Unknown RASH Verified 05/22/22 10:33 Review of Systems Sugical H&P ROS: Negative: Constitution, Cardiovascular, Respiratory and Gastrointestinal Exam Surgical H&P Exam: Normal: Heart, Normal: Lungs, Normal: Extremities and Normal: Abdomen Plan Diagnosis/Plan: Unchanged I have reviewed the history and physical and performed a pertinent physical examination on my patient. No changes have occurred unless specified.
--- NOTE | 2022-08-28 09:28 | PM.OP ---
Brief Operative Note Date of Service: 08/28/22 Pre-op diagnosis: colon cancer screening, GERD, dyspepsia Post-op diagnosis: other ( GERD, gastritis, diverticulosis, hemorrhoids) Procedure: EGD WITH BIOPSIES COLONOSCOPY TO CECUM Surgeon: Toma Sexton MD Anesthesia: MAC Was an Patent Solicitor used for this Procedure?: No Estimated blood loss (mL): 0 Pathology: other (A) BX Small Bowel (R/O Celiac's) B) BX Gastric Antrum (R/O H.Pylori) C) BX Gastric Body) Condition: stable Disposition: PACU
--- NOTE | 2022-08-28 09:28 | W.PM.OPN ---
Operative Note Operative Note Date of Service: 08/28/22 Narrative: Pre-op diagnosis: colon cancer screening, GERD, dyspepsia Post-op diagnosis:?other ( GERD, gastritis, diverticulosis, hemorrhoids) Surgeon: Toma Sexton MD Anesthesia:?MAC FLEXIBLE TRANSORAL UPPER GASTROINTESTINAL ENDOSCOPY WITH BIOPSIES AND COLONOSCOPY TILL CECUM UPPER ENDOSCOPY Consent: Indications for the procedure and potential complications of bleeding, perforation, reaction to medications and missed diagnosis were discussed with the patient and informed consent was obtained. Instrument: Olympus GIF H 190 mid size upper endoscope Monitoring: Vital signs and clinical assessment, continuous EKG monitoring, Pulse oximetry, Carbon Dioxide monitoring and blood pressure monitoring were done throughout the procedure. Procedure: The patient was placed in the left lateral decubitis position and pre-procedure medications were administered and a bite block was placed. The endoscope was inserted into the mouth and advanced under direct vision to the third part of duodenum. A careful inspection was made as the upper endoscope was withdrawn including a retroflexed examination of the proximal stomach; Findings and interventions are described below. Findings: Larynx: Normal Esophagus: GE junction at 36 cms. No esophagitis or Renner's. Stomach: Moderate diffuse gastric erythema. Biopsies were obtained. Grade 2 flap valve on retroflexed examination of the cardia. Duodenum: Normal bulb and descending duodenum. Biopsies were obtained from 3rd part of the duodenum to check for celiac sprue Intervention: Biopsies as noted above COLONOSCOPY PROCEDURE NOTE Consent: Indications for the procedure and potential complications of bleeding, perforation, reaction to medications and missed diagnosis were discussed with the patient and informed consent was obtained. Instrument: Olympus PCF H 190 L variable stiffness pediatric colonoscope Monitoring: Vital signs and clinical assessment, intermittent blood pressure monitoring, continuous EKG monitoring, Pulse oximetry and Carbon Dioxide monitoring were done throughout the procedure. Colon withdrawl time was 15 minutes. Procedure: The patient was placed in the left lateral decubitis position and pre-procedure medications were administered. After a digital rectal examination of the ano-rectum, the video colonoscope was inserted into the rectum and advanced through the colon to the cecum. The colonoscope was slowly withdrawn in a retrograde panoramic fashion and the colon mucosa was carefully examined including a retroflexed view of the rectum. Findings and interventions are described below. Procedure Difficulty: : Without difficulty Findings: Terminal Ileum: Not evaluated Cecum: Normal Ascending Colon: Normal Transverse Colon: Normal Descending Colon: Normal Sigmoid Colon: Moderate diverticulosis Rectum: Normal Ano-rectum: Small internal hemorrhoids Colon preparation: Excellent Impression and Post Procedure Diagnosis: Endoscopy Findings: STOMACH: Moderate diffuse gastric erythema. Biopsies were obtained. Grade 2 flap valve on retroflexed examination of the cardia. DUODENUM: Normal bulb and descending duodenum. Biopsies were obtained from 3rd part of the duodenum to check for celiac sprue Colonoscopy Findings: No polyps were detected Moderate diverticulosis seen in the sigmoid colon Small hemorrhoids on retroflexed exam. Plan: Await pathology results Patient has an appointment on 09/11/22 in the [facility] with Kaylah Pat FNP-BC. Repeat Colonoscopy interval based on path results - in 3-5 years if polyps are adenomatous and 10 years if polyps are hyperplastic. GERD and diverticulosis handouts were given in the discharge area
[2022-08-28 10:23] VITALS: BP 92/55; PULSE 64; RESP 16; TEMP 36.4; O2SAT 96
[2022-08-28 10:38] VITALS: BP 130/68; PULSE 60; RESP 16; O2SAT 97
[2022-08-28 10:53] VITALS: BP 126/74; PULSE 62; RESP 16; TEMP 36.9; O2SAT 99
--- NOTE | 2022-08-28 14:25 | HO.POSTANES ---
Post Anesthesia Evaluation Post Anesthesia Evaluation Vital Signs: Vital Signs Temp Pulse Resp BP Pulse Ox O2 Del Method 08/28/22 10:53 98.5 F 62 16 126/74 99 Room Air 08/28/22 10:38 60 16 130/68 97 Room Air 08/28/22 10:23 97.6 F 64 16 92/55 L 96 Room Air 08/28/22 08:52 97.4 F 62 16 115/69 95 Room Air Anesthesia: Monitored Mental Status: Awake Pain Control: Satisfactory Nausea/Vomiting: None Hydration: Adequate Anesthesia-Related Issues: No Anes. Related Issues
== END 2022-08-28 11:41 | disposition home or self-care (01) ==
PROVIDERS: PCP Family Medicine; Visit Provider Internal Medicine Gastroenterology
PROC: (CPT 43239; principal; 2022-08-28 09:30)
DX: Z12.11 Encounter for screening for malignant neoplasm of colon (principal); Z86.010 Personal history of colon polyps; K57.30 Diverticulosis of large intestine without perforation or abscess without bleeding; K64.8 Other hemorrhoids; K59.04 Chronic idiopathic constipation; K29.50 Unspecified chronic gastritis without bleeding; K21.9 Gastro-esophageal reflux disease without esophagitis; J45.909 Unspecified asthma, uncomplicated; I10 Essential (primary) hypertension; E05.90 Thyrotoxicosis, unspecified without thyrotoxic crisis or storm; Z79.899 Other long term (current) drug therapy; Z88.8 Allergy status to other drugs, medicaments and biological substances
CPT/HCPCS: 43239; G0105; 88305; 88342

== ENCOUNTER 2022-08-30 14:07 | Outpatient (REF) | payer MEDICARE, SELFPAY ==
--- NOTE | 2022-08-30 10:15 | EMG_ITS ---
Please see scanned EMG / Nerve Conduction Report. MTDD
== END 2022-08-30 14:08 | disposition home or self-care (01) ==
LOC: HO.NEURO 14:07
PROVIDERS: PCP Registered Nurse; Visit Provider Registered Nurse
DX: R20.0 Anesthesia of skin (principal)
CPT/HCPCS: 95885; 95910

== ENCOUNTER 2022-09-08 12:05 | Emergency (ER) | payer MEDICARE, SELFPAY ==
--- NOTE | ~2022-09-08 | XR_ITS ---
EXAMINATION: XR CHEST CLINICAL INFORMATION: Cough/sputum COMPARISON: Chest x-ray 03/19/2022 TECHNIQUE: 2 views of the chest were obtained. FINDINGS: Minimal linear probable subsegmental atelectasis in the peripheral right lung base. No airspace consolidation. No pleural effusion or pneumothorax. Normal cardiomediastinal silhouette and pulmonary vascularity. No acute osseous injury. XR/XR chest 2V IMPRESSION: No acute pulmonary process.
[2022-09-08 12:21] VITALS: BP 150/79; PULSE 61; RESP 18; TEMP 36.6; O2SAT 98; BMI 31.1
--- NOTE | 2022-09-08 12:23 | ED_ITS ---
HPI - URI/Sore Throat General Chief Complaint: Upper Respiratory Symptoms <LANDON Fonseca - Last Filed: 09/08/22 12:27> Stated Complaint: Chest Heaviness Asthma <LANDON Fonseca - Last Filed: 09/08/22 12:27> Source: patient <Alan Jordan DO - Last Filed: 09/08/22 14:48> Mode of arrival: ambulatory <Alan Jordan DO - Last Filed: 09/08/22 14:48> Limitations: no limitations <Alan Jordan DO - Last Filed: 09/08/22 14:48> History of Present Illness HPI Narrative: 71-year-old female history of asthma presents to the emergency department complaining of cough congestion phlegm. Patient states that she has had some sick contacts she is vaccinated for COVID and flu. She denies any falls or injuries she states last time she was prednisone his behavior arrival she has no wheezing patient was seen initially had an x-ray which was normal and was swabbed for COVID. She has had symptoms past 5 days she is out of the window for treatment for COVID or fluid this time. He does not look ill enough to require this <Alan Jordan DO - Last Filed: 09/08/22 14:48> MD elicited complaint: cough <Alan Jordan DO - Last Filed: 09/08/22 14:48> Related Data Home Medications: Home Medications Medication Instructions Recorded Confirmed acetaminophen 500 mg tablet 1,000 mg PO Q6H PRN pain 10/27/20 05/22/22 albuterol sulfate 2.5 mg/3 mL mg inhalation Q6H PRN asthma 10/27/20 05/22/22 (0.083 %) solution for nebulization atorvastatin 40 mg tablet 40 mg PO DAILY 10/27/20 05/22/22 budesonide-formoterol HFA 160 2 puff PO BID 10/27/20 05/22/22 mcg-4.5 mcg/actuation aerosol inhaler cetirizine 10 mg tablet 10 mg PO DAILY PRN 10/27/20 05/22/22 citalopram 10 mg tablet 10 mg PO DAILY 10/27/20 05/22/22 clobetasol 0.05 % topical ointment g topical DAILY 10/27/20 05/22/22 mirtazapine 30 mg tablet 30 mg PO BEDTIME 10/27/20 05/22/22 montelukast 10 mg tablet 10 mg PO DAILY 10/27/20 05/22/22 multivitamin 1 tab PO DAILY 10/27/20 05/22/22 zolpidem 10 mg tablet 10 mg PO BEDTIME PRN 10/27/20 05/22/22 ascorbate calcium (vitamin C) 500 1 g PO Q6H 03/28/22 05/22/22 mg tablet Previous Rx's Medication Instructions Recorded calcium citrate 500 mg PO BID 90 days #360 tabs 03/03/21 methylcellulose (laxative) 500 mg 500 mg PO DAILY #90 tabs 09/05/21 tablet (Citrucel) cyclobenzaprine 10 mg tablet 10 mg PO TID PRN muscle spasm #14 11/15/21 tabs pantoprazole 40 mg tablet,delayed 40 mg PO DAILY #90 tabs 12/05/21 release levothyroxine 50 mcg tablet 50 mcg PO DAILY 90 days #90 tabs 12/15/21 linaclotide 72 mcg capsule 72 mcg PO DAILY #90 caps 03/28/22 (Linzess) sucralfate 100 mg/mL oral 10 ml PO DAILY #400 mL 08/09/22 suspension meloxicam 15 mg tablet 15 mg PO .QD #90 tabs 08/23/22 <LANDON Fonseca - Last Filed: 09/08/22 12:27> Allergies/Adverse Reactions: Allergies Allergy/AdvReac Type Severity Reaction Status Date / Time morphine [MORPHINE] Allergy Unknown RASH Verified 05/22/22 10:33 <LANDON Fonseca - Last Filed: 09/08/22 12:27> Review of Systems Review of Systems: Review of systems: General: Patient denies any fever chills recent illness or falls Musculoskeletal: Denies back pain or body aches or other injuries HEENT: denies headache, runny nose, ear pain Respiratory: cough denies shortness of breath, Cardiovascular: no chest pain or palpitations : denies dysuria, frequency Abdomen: no nausea vomiting denies abdominal pain Extremities: no swelling, no pain Skin: no diaphoresis <DO Last Pavon Last Filed: 09/08/22 14:48> Yes all other systems are reviewed and are negative <Alan Jordan DO - Last Filed: 09/08/22 14:48> [facility] Past Medical History Medical History: Medical History Asthma Hypertension Hyperthyroidism Postablative hypothyroidism Primary hyperparathyroidism Vitamin D deficiency <LANDON Fonseca - Last Filed: 09/08/22 12:27> Surgical History: Surgical History History of carpal tunnel release of both wrists History of esophagogastroduodenoscopy (EGD) Hx of cataract removal with insertion of prosthetic lens Hx of cholecystectomy Hx of colonoscopy Hx of endoscopy Hx of hysterectomy Hx of lithotripsy S/P subtotal parathyroidectomy <LANDON Fonseca - Last Filed: 09/08/22 12:27> Family History Family History: Family History Father No problems noted. Mother No problems noted. <LANDON Fonseca - Last Filed: 09/08/22 12:27> Social History Social History: Social History Household Members: Family Alcohol intake: never Patient Tobacco Use Status: Never used Tobacco Smoked in Last 30 Days: No Use of substances other than those prescribed or required for medical reasons: No Advance Directives: No Advance Directives Information Provided: Yes <LANDON Fonseca - Last Filed: 09/08/22 12:27> Physical Exam Vital Signs: Vital Signs: Last Vital Signs Temp 97.9 F 09/08/22 12:21 Pulse 61 09/08/22 12:21 Resp 18 09/08/22 12:21 BP 150/79 H 09/08/22 12:21 Pulse Ox 98 09/08/22 12:21 O2 Del Method 09/08/22 12:21 BMI result Body Mass Index 31.1 <LANDON Fonseca - Last Filed: 09/08/22 12:27> Vital Signs: Last Vital Signs Temp 97.9 F 09/08/22 12:21 Pulse 61 09/08/22 12:21 Resp 18 09/08/22 12:21 BP 150/79 H 09/08/22 12:21 Pulse Ox 98 1216/22 12:21 O2 Del Method 09/08/22 12:21 BMI result Body Mass Index 31.1 <Alan Jordan DO - Last Filed: 09/08/22 14:48> General: Well-appearing well-nourished in no signs of distress HEENT: Normocephalic atraumatic Neck: No signs of JVD, no masses no tenderness or lymphadenopathy Cardiovascular: Regular rate and rhythm Respiratory: Clear to auscultation bilaterally Abdomen: Soft nontender no masses Extremities: Normal pedal pulses no signs of edema Skin: Dry warm no rashes Back: No tenderness full ROM <Alan Jordan DO - Last Filed: 09/08/22 14:48> Course Course Course Narrative: APRIL-12:22PM - 71yoF who is Sami-speaking presenting to the ED c/o denies fatigue, malaise, chills, nasal congestion/rhinorrhea, cough with sputum production since Sunday worse today. Reports her grandson tested positive for influenza A past few days ago. She denies any measured fevers, chest pain, shortness of breath, nausea/vomiting, diarrhea abdominal pain, lower extremity edema or calf tenderness or any other symptoms complaints or concerns at this time. Plan: Chest x-ray, COVID/RSV/flu swab ordered at this time. Patient is stable. Lungs clear to auscultation. Patient be evaluated in [facility]. <LANDON Fonseca - Last Filed: 09/08/22 12:27> Medical Decision Making Medical Decision Making MDM Narrative: Patient still has mild cough no signs of pneumonia on x-ray today of his patient was started on prednisone give her some Tessalon Perles I feel comfortable discharging the patient home with PCP follow-up. <Alan Jordan DO - Last Filed: 09/08/22 14:48> Differential Diagnosis Differential Diagnoses: The differential diagnosis associated with the presentation includes <DO Last Pavon Last Filed: 09/08/22 14:48> pneumonia asthma vs copd exacerbation <Alan Jordan DO - Last Filed: 09/08/22 14:48> Admission/Observation Consideration of admission/observation: Escalation of care including admission/observation considered <DO Last Pavon Last Filed: 09/08/22 14:48> Discharge Plan Discharge Clinical Impression: Upper respiratory infection, Viral infection, Bronchitis <LANDON Fonseca - Last Filed: 09/08/22 12:27> Patient Disposition: Home, Self-Care <LANDON Fonseca - Last Filed: 09/08/22 12:27> Instructions: Acute Bronchitis (ED), Viral Syndrome (ED), Upper Respiratory Infection (ED) <LANDON Fonseca - Last Filed: 09/08/22 12:27> Additional Instructions: Please call to follow up with your doctor. You don't have pneumonia here. If you have worsening shortness of breath please return to the ED. <LANDON Fonseca - Last Filed: 09/08/22 12:27> Prescriptions: No Action levothyroxine 50 mcg tablet 50 mcg PO DAILY 90 Days Qty: 90 3RF Rx Instructions: Dose decreased to 50 mcg please discontinue prior prescription of 75 mcg sucralfate 100 mg/mL suspension 10 ml PO DAILY Qty: 400 0RF meloxicam 15 mg tablet 15 mg PO .QD Qty: 90 0RF cyclobenzaprine 10 mg tablet 10 mg PO TID PRN (Reason: muscle spasm) Qty: 14 0RF zolpidem 10 mg tablet 10 mg PO BEDTIME PRN mirtazapine 30 mg tablet 30 mg PO BEDTIME citalopram 10 mg tablet 10 mg PO DAILY albuterol sulfate 2.5 mg /3 mL (0.083 %) solution for nebulization inhalation Q6H PRN (Reason: asthma) atorvastatin 40 mg tablet 40 mg PO DAILY montelukast 10 mg tablet 10 mg PO DAILY cetirizine 10 mg tablet 10 mg PO DAILY PRN multivitamin Tablet 1 tab PO DAILY acetaminophen 500 mg tablet 1,000 mg PO Q6H PRN (Reason: pain) budesonide-formoterol 160-4.5 mcg/actuation HFA aerosol inhaler 2 puff PO BID clobetasol 0.05 % ointment topical DAILY calcium citrate 250 mg calcium tablet 500 mg PO BID 90 Days Qty: 360 1RF Citrucel 500 mg tablet 500 mg PO DAILY Qty: 90 2RF Rx Instructions: libby todas las mananas con un vaso de agua lleno Linzess 72 mcg capsule 72 mcg PO DAILY Qty: 90 2RF pantoprazole 40 mg tablet,delayed release (DR/EC) 40 mg PO DAILY Qty: 90 2RF Rx Instructions: libby un comprimido media hora antes del desayuno ascorbate calcium (vitamin C) 500 mg tablet 1 g PO Q6H <LANDON Fonseca - Last Filed: 09/08/22 12:27>
[2022-09-08 14:49] LABS: Influenza A PCR NEGATIVE (Negative); Influenza B PCR NEGATIVE (Negative); Resp Syncy Virus RNA Qual PCR NEGATIVE (Negative); SARS COV2 PCR INHOUSE NEGATIVE (Negative)
--- NOTE | 2022-09-08 15:32 | PC.NURSE ---
Eval by PA, pt awaiting medication and dc home.
[2022-09-08] MEDS: Benzonatate 100 MG CAPSULE PO (15:35)
== END 2022-09-08 15:37 | disposition home or self-care (01) ==
PROVIDERS: Physician Assistant Medical; Emergency Provider Student in an Organized Health Care Education/Training Program; PCP Registered Nurse
DX: J06.9 Acute upper respiratory infection, unspecified (principal); B34.9 Viral infection, unspecified; J40 Bronchitis, not specified as acute or chronic; Z20.822 Contact with and (suspected) exposure to COVID-19; I10 Essential (primary) hypertension; Z79.899 Other long term (current) drug therapy
CPT/HCPCS: 0241U; 71046; 99283; 99284

== ENCOUNTER → 2022-09-11 08:42 | Outpatient (BNVA) | payer MEDICARE, SELFPAY | PROVIDERS: PCP Registered Nurse; Visit Provider Nurse Practitioner Family | DX: K21.9 Gastro-esophageal reflux disease without esophagitis (principal); K59.04 Chronic idiopathic constipation; Z98.890 Other specified postprocedural states | CPT/HCPCS: 99212 ==

== ENCOUNTER 2022-12-02 12:13 | Emergency (ER) | payer MEDICARE, SELFPAY ==
--- NOTE | ~2022-12-02 | XR_ITS ---
EXAMINATION: XR CHEST CLINICAL INFORMATION: Anterior chest pain COMPARISON: 09/08/2022 TECHNIQUE: 2 views of the chest were obtained. FINDINGS: Heart and pulmonary vessels appear normal. Biconvex thoracolumbar scoliosis is again seen. The right hemidiaphragm remains elevated. No infiltrates, effusions or lung masses. XR/XR chest 2V IMPRESSION: No acute intrathoracic disease.
[2022-12-02 12:18] VITALS: BP 129/81; PULSE 66; RESP 18; TEMP 36.6; O2SAT 98; BMI 27.8
--- NOTE | 2022-12-02 12:18 | ED_ITS ---
HPI - General Adult General Chief complaint: Asthma <LANDON Garcia - Last Filed: 12/02/22 15:31> Stated complaint: Asthma <LANDON Garcia - Last Filed: 12/02/22 15:31> Time Seen by Provider: 12/02/22 12:57 <LANDON Garcia - Last Filed: 12/02/22 15:31> Source: patient and family <LANDON Briones - Last Filed: 12/02/22 16:46> Mode of arrival: ambulatory <LANDON Briones - Last Filed: 12/02/22 16:46> Limitations: no limitations <LANDON Briones - Last Filed: 12/02/22 16:46> History of Present Illness HPI narrative: 72-year-old female with a history of asthma presents to the ER with 3 days of worsening wheezing, chest tightness, productive cough of white phlegm. She has been using her at home nebulizer treatments with no improvement. She states she is coughing up some white phlegm. She denies any fever or chills. She denies any known sick contacts. She denies any chest pain, leg swelling. No abdominal pain, nausea, vomiting, diarrhea. <LANDON Briones - Last Filed: 12/02/22 16:46> MD complaint: Wheezing <LANDON Briones - Last Filed: 12/02/22 16:46> Onset (ago): day(s) (3) <LANDON Briones - Last Filed: 12/02/22 16:46> Location: chest <LANDON Briones - Last Filed: 12/02/22 16:46> Radiation: non-radiation <LANDON Briones - Last Filed: 12/02/22 16:46> Severity: moderate <LANDON Briones Last Filed: 12/02/22 16:46> Pain Consistency: intermittent <LANDON Briones Last Filed: 12/02/22 16:46> Relieving factors: none <LANDON Briones Last Filed: 12/02/22 16:46> Exacerbating factors: none <LANDON Briones - Last Filed: 12/02/22 16:46> Associated symptoms: cough and shortness of breath <LANDON Briones - Last Filed: 12/02/22 16:46> Treatments prior to arrival: none <LANDON Briones - Last Filed: 12/02/22 16:46> Related Data Home medications: Home Medications Medication Instructions Recorded Confirmed acetaminophen 500 mg tablet 1,000 mg PO Q6H PRN pain 10/27/20 11/30/22 albuterol sulfate 2.5 mg/3 mL mg inhalation Q6H PRN asthma 10/27/20 05/22/22 (0.083 %) solution for nebulization atorvastatin 40 mg tablet 40 mg PO DAILY 10/27/20 11/30/22 budesonide-formoterol HFA 160 2 puff PO BID 10/27/20 11/30/22 mcg-4.5 mcg/actuation aerosol inhaler cetirizine 10 mg tablet 10 mg PO DAILY PRN Allergic 10/27/20 11/30/22 Symptoms citalopram 10 mg tablet 10 mg PO DAILY 10/27/20 11/30/22 clobetasol 0.05 % topical ointment g topical DAILY 10/27/20 05/22/22 mirtazapine 30 mg tablet 30 mg PO BEDTIME 10/27/20 11/30/22 montelukast 10 mg tablet 10 mg PO DAILY 10/27/20 11/30/22 multivitamin 1 tab PO DAILY 10/27/20 11/30/22 zolpidem 10 mg tablet 10 mg PO BEDTIME PRN Sleep 10/27/20 11/30/22 ascorbate calcium (vitamin C) 500 1 g PO Q6H 03/28/22 11/30/22 mg tablet Previous Rx's Medication Instructions Recorded calcium citrate 500 mg PO BID 90 days #360 tabs 03/03/21 methylcellulose (laxative) 500 mg 500 mg PO DAILY #90 tabs 09/05/21 tablet (Citrucel) cyclobenzaprine 10 mg tablet 10 mg PO TID PRN muscle spasm #14 11/15/21 tabs levothyroxine 50 mcg tablet 50 mcg PO DAILY 90 days #90 tabs 12/15/21 meloxicam 15 mg tablet 15 mg PO .QD #90 tabs 08/23/22 linaclotide 72 mcg capsule 72 mcg PO DAILY #90 caps 09/11/22 (Linzess) pantoprazole 40 mg tablet,delayed 40 mg PO DAILY #90 tabs 09/11/22 release albuterol sulfate 2.5 mg/0.5 mL 5 mg inhalation Q4H PRN shortness 12/02/22 solution for nebulization of breath or wheezing #30 ea azithromycin 250 mg tablet See Rx Instructions PO .COMPLEX #6 12/02/22 (Zithromax Z-Lux) tabs benzonatate 100 mg capsule 100 mg PO TID PRN cough #30 caps 12/02/22 prednisone 10 mg tablets in a dose See Taper PO DAILY #48 ea 12/02/22 pack <LANDON Garcia - Last Filed: 12/02/22 15:31> Allergies/adverse reactions: Allergies Allergy/AdvReac Type Severity Reaction Status Date / Time morphine [MORPHINE] Allergy Unknown RASH Verified 12/02/22 12:18 <LANDON Garcia - Last Filed: 12/02/22 15:31> [facility] Past Medical History Medical History: Medical History Asthma Hypertension Hyperthyroidism Postablative hypothyroidism Primary hyperparathyroidism Vitamin D deficiency <LANDON Garcia - Last Filed: 12/02/22 15:31> Surgical History: Surgical History History of carpal tunnel release of both wrists History of esophagogastroduodenoscopy (EGD) Hx of cataract removal with insertion of prosthetic lens Hx of cholecystectomy Hx of colonoscopy Hx of endoscopy Hx of hysterectomy Hx of lithotripsy S/P subtotal parathyroidectomy <LANDON Garcia - Last Filed: 12/02/22 15:31> Family History Family History: Family History Father No problems noted. Mother No problems noted. <LANDON Garcia - Last Filed: 12/02/22 15:31> Social History Social History: Social History Household Members: Family Alcohol intake: never Patient Tobacco Use Status: Never used Tobacco Advance Directives: No Advance Directives Information Provided: Yes <LANDON Garcia Last Filed: 12/02/22 15:31> Physical Exam ED Vital Signs: Vital Signs - 24 hr 12/02/22 12:18 12/02/22 13:07 12/02/22 15:31 Temperature 97.8 F 97.3 F Pulse Rate 66 75 66 Respiratory Rate 18 18 16 Blood Pressure 129/81 119/67 Pulse Oximetry 98 93 Oxygen Delivery Method Room Air Room Air BMI result Body Mass Index 27.8 <LANDON Garcia Last Filed: 12/02/22 15:31> Vital Signs - 24 hr 12/02/22 12:18 12/02/22 13:07 12/02/22 15:31 Temperature 97.8 F 97.3 F Pulse Rate 66 75 66 Respiratory Rate 18 18 16 Blood Pressure 129/81 119/67 Pulse Oximetry 98 93 Oxygen Delivery Method Room Air Room Air BMI result Body Mass Index 27.8 <LANDON Briones Last Filed: 12/02/22 16:46> Appearance: Alert. Oriented X3. No acute distress. Eyes: Pupils equal, round and reactive to light. ENT: Pharynx normal. Neck: Normal inspection. Neck supple. no JVD CVS: Normal heart rate and rhythm. Pulses normal. Respiratory: No respiratory distress. expiratory wheeze in the left middle lung field only. Abdomen: Soft and nontender. +BS x4 Skin: Skin warm and dry. Normal skin color. Normal skin turgor. No rashes. Extremities: No lower extremity edema. No calf swelling or tenderness Neuro: Oriented X 3. Grossly normal, nonfocal <LANDON Briones Last Filed: 12/02/22 16:46> Course Course Course Narrative: RME performed by Earlene Travis PA-C. Patient is a 72 year old female presenting to the emergency department with increased shortness of breath. Patient states that she has a history of asthma and her inhaler at home is no longer helping. Labs, XR, swab, and breathing treatment ordered. Patient placed back in the waiting room pending room availability and results. <LANDON Garcia Last Filed: 12/02/22 15:31> Reevaluation(s) Reevaluation #1: Improved significantly after steroids and nebulizer. Saturations remain in adequate range and she is symptomatic late feeling better. She would like to go home. <LANDON Briones - Last Filed: 12/02/22 16:46> Medications Administered Discontinued Medications Generic Name Dose Route Start Last Admin Trade Name Freq PRN Reason Stop Dose Admin Albuterol Sulfate 5 mg/ 0 mg 12/02/22 12:19 12/02/22 13:05 Ipratropium Redmon 0.5 mg INHALE 12/02/22 12:20 1 each ONCE ONE Administration Methylprednisolone Sodium Succinate 60 mg 12/02/22 12:19 12/02/22 12:56 Methylprednisolone Sod Succ 125 Mg/2 Ml Vial IM 12/02/22 12:20 60 mg ONCE ONE Administration <LANDON Garcia - Last Filed: 12/02/22 15:31> Medications Administered Discontinued Medications Generic Name Dose Route Start Last Admin Trade Name Freq PRN Reason Stop Dose Admin Albuterol Sulfate 5 mg/ 0 mg 12/02/22 12:19 12/02/22 13:05 Ipratropium Redmon 0.5 mg INHALE 12/02/22 12:20 1 each ONCE ONE Administration Methylprednisolone Sodium Succinate 60 mg 12/02/22 12:19 12/02/22 12:56 Methylprednisolone Sod Succ 125 Mg/2 Ml Vial IM 12/02/22 12:20 60 mg ONCE ONE Administration <LANDON Briones - Last Filed: 12/02/22 16:46> Medical Decision Making Medical Decision Making MDM Narrative: 72-year-old female with history of asthma presents to the ER for evaluation of acute asthma exacerbation. She is short of breath and wheezing despite taking her albuterol Nebulizers at home. Chest x-ray today does not show any evidence of pneumonia. She does not have any chest pain. She is coughing up some phlegm. Her labs are unremarkable. She improved significantly with a dose of Solu-Medrol and albuterol nebulizer treatment x1. At this time her acute asthma exacerbation is improved and she is stable for discharge home with a course of oral steroids, antitussives, a Z-Lux. Encouraged follow-up with her primary care doctor or come back to the ER if symptoms worsen. All questions were answered. Patient and daughter agree with plan. <LANDON Briones - Last Filed: 12/02/22 16:46> Differential Diagnosis Differential Diagnoses: The differential diagnosis associated with the presentation includes <LANDON Briones - Last Filed: 12/02/22 16:46> Acute asthma exacerbation, acute CHF exacerbation, bronchitis, pneumonia, viral syndrome, COVID, flu, RSV, pneumonitis, pleural effusion, less likely ACS or PE given physical examination findings of wheezing. <LANDON Briones - Last Filed: 12/02/22 16:46> Admission/Observation Consideration of admission/observation: Escalation of care including admission/observation considered <LANDON Briones - Last Filed: 12/02/22 16:46> Patient improved significantly after steroids and neb. Comfortable discharge home <LANDON Briones - Last Filed: 12/02/22 16:46> Lab Data MDM Lab Attestation statement: I reviewed the patient's lab results. <LANDON Briones - Last Filed: 12/02/22 16:46> No leukocytosis, normal BNP and troponin. Unremarkable lab workup. <LANDON Briones - Last Filed: 12/02/22 16:46> Result Diagrams: 12/02/22 12:50 12/02/22 12:50 <LANDON Garcia - Last Filed: 12/02/22 15:31> Labs: Lab Results 12/02/22 12/02/22 12/02/22 Range/Units 12:50 12:50 12:50 WBC 5.7 (4.8-10.8) X10*3/uL RBC 4.00 L (4.20-5.50) X10*6/uL Hgb 12.5 (12.0-16.0) g/dl Hct 38.5 (37.0-47.0) % MCV 96.3 (80.0-98.0) fL MCH 31.3 (27.0-33.0) pg MCHC 32.5 (31.0-35.0) g/dl RDW 13.9 (11.0-16.0) % Plt Count 202 (160-400) X10*3/uL MPV 10.0 (9.4-12.3) fL Immature Gran % (Auto) 0.4 (0.0-0.4) % Neut % (Auto) 54.5 (45-73) % Lymph % (Auto) 30.9 (20-40) % Hodgeman % (Auto) 6.5 (2-11) % Eos % (Auto) 7.0 H (0-4) % Baso % (Auto) 0.7 (0-2) % Lymph # (Auto) 1.8 (1.2-4.9) X10*3/uL Hodgeman # (Auto) 0.4 (0.1-1.2) X10*3/uL Eos # (Auto) 0.4 (0.0-0.4) X10*3/uL Baso # (Auto) 0.0 (0.0-0.2) X10*3/uL Abs Immat Gran (auto) 0.02 (0.00-0.03) X10*3/uL Absolute Neuts (auto) 3.1 (2.0-8.3) x10*3/uL Absolute Nucleated RBC 0.000 (0.0-0.012) X10*3/uL Nucleated RBC % (auto) 0.0 (0.0-0.2) /100WBC Sodium (135-145) mmol/L Potassium (3.3-5.1) mmol/L Chloride (96-108) mmol/L Carbon Dioxide (22-29) mmol/L Anion Gap (12-20) BUN (9-16) mg/dL Creatinine (0.5-1.4) mg/dL Estim Creat Clear Calc Estimated GFR Random Glucose (60-115) mg/dL Calcium (8.4-10.2) mg/dL Magnesium (1.6-2.6) mg/dL Total Bilirubin (0.0-1.0) mg/dL AST (5-31) U/L ALT (0-31) U/L Alkaline Phosphatase (39-117) U/L Troponin I High Sens < 3.5 (<3.5-17.0) ng/L B-Natriuretic Peptide 35 (<100) pg/mL Total Protein (6.5-8.0) g/dL Albumin (3.5-5.0) g/dL COVID-19 (RUTHY) (Negative) COVID-19 Clin Com 12/02/22 12/02/22 Range/Units 13:35 15:30 WBC (4.8-10.8) X10*3/uL RBC (4.20-5.50) X10*6/uL Hgb (12.0-16.0) g/dl Hct (37.0-47.0) % MCV (80.0-98.0) fL MCH (27.0-33.0) pg MCHC (31.0-35.0) g/dl RDW (11.0-16.0) % Plt Count (160-400) X10*3/uL MPV (9.4-12.3) fL Immature Gran % (Auto) (0.0-0.4) % Neut % (Auto) (45-73) % Lymph % (Auto) (20-40) % Hodgeman % (Auto) (2-11) % Eos % (Auto) (0-4) % Baso % (Auto) (0-2) % Lymph # (Auto) (1.2-4.9) X10*3/uL Hodgeman # (Auto) (0.1-1.2) X10*3/uL Eos # (Auto) (0.0-0.4) X10*3/uL Baso # (Auto) (0.0-0.2) X10*3/uL Abs Immat Gran (auto) (0.00-0.03) X10*3/uL Absolute Neuts (auto) (2.0-8.3) x10*3/uL Absolute Nucleated RBC (0.0-0.012) X10*3/uL Nucleated RBC % (auto) (0.0-0.2) /100WBC Sodium 144 (135-145) mmol/L Potassium 3.9 (3.3-5.1) mmol/L Chloride 107 (96-108) mmol/L Carbon Dioxide 29 (22-29) mmol/L Anion Gap 12 (12-20) BUN 14 (9-16) mg/dL Creatinine 0.82 (0.5-1.4) mg/dL Estim Creat Clear Calc 48.4 Estimated GFR > 60 Random Glucose 120 H (60-115) mg/dL Calcium 9.1 (8.4-10.2) mg/dL Magnesium 1.9 (1.6-2.6) mg/dL Total Bilirubin 0.6 (0.0-1.0) mg/dL AST 21 (5-31) U/L ALT 30 (0-31) U/L Alkaline Phosphatase 78 (39-117) U/L Troponin I High Sens (<3.5-17.0) ng/L B-Natriuretic Peptide (<100) pg/mL Total Protein 6.9 (6.5-8.0) g/dL Albumin 4.1 (3.5-5.0) g/dL COVID-19 (RUTHY) Negative (Negative) COVID-19 Clin Com See Note <LANDON Garcia - Last Filed: 12/02/22 15:31> Lab Results 12/02/22 12/02/22 12/02/22 Range/Units 12:50 12:50 12:50 WBC 5.7 (4.8-10.8) X10*3/uL RBC 4.00 L (4.20-5.50) X10*6/uL Hgb 12.5 (12.0-16.0) g/dl Hct 38.5 (37.0-47.0) % MCV 96.3 (80.0-98.0) fL MCH 31.3 (27.0-33.0) pg MCHC 32.5 (31.0-35.0) g/dl RDW 13.9 (11.0-16.0) % Plt Count 202 (160-400) X10*3/uL MPV 10.0 (9.4-12.3) fL Immature Gran % (Auto) 0.4 (0.0-0.4) % Neut % (Auto) 54.5 (45-73) % Lymph % (Auto) 30.9 (20-40) % Hodgeman % (Auto) 6.5 (2-11) % Eos % (Auto) 7.0 H (0-4) % Baso % (Auto) 0.7 (0-2) % Lymph # (Auto) 1.8 (1.2-4.9) X10*3/uL Hodgeman # (Auto) 0.4 (0.1-1.2) X10*3/uL Eos # (Auto) 0.4 (0.0-0.4) X10*3/uL Baso # (Auto) 0.0 (0.0-0.2) X10*3/uL Abs Immat Gran (auto) 0.02 (0.00-0.03) X10*3/uL Absolute Neuts (auto) 3.1 (2.0-8.3) x10*3/uL Absolute Nucleated RBC 0.000 (0.0-0.012) X10*3/uL Nucleated RBC % (auto) 0.0 (0.0-0.2) /100WBC Sodium (135-145) mmol/L Potassium (3.3-5.1) mmol/L Chloride (96-108) mmol/L Carbon Dioxide (22-29) mmol/L Anion Gap (12-20) BUN (9-16) mg/dL Creatinine (0.5-1.4) mg/dL Estim Creat Clear Calc Estimated GFR Random Glucose (60-115) mg/dL Calcium (8.4-10.2) mg/dL Magnesium (1.6-2.6) mg/dL Total Bilirubin (0.0-1.0) mg/dL AST (5-31) U/L ALT (0-31) U/L Alkaline Phosphatase (39-117) U/L Troponin I High Sens < 3.5 (<3.5-17.0) ng/L B-Natriuretic Peptide 35 (<100) pg/mL Total Protein (6.5-8.0) g/dL Albumin (3.5-5.0) g/dL COVID-19 (RUTHY) (Negative) COVID-19 Clin Com 12/02/22 12/02/22 Range/Units 13:35 15:30 WBC (4.8-10.8) X10*3/uL RBC (4.20-5.50) X10*6/uL Hgb (12.0-16.0) g/dl Hct (37.0-47.0) % MCV (80.0-98.0) fL MCH (27.0-33.0) pg MCHC (31.0-35.0) g/dl RDW (11.0-16.0) % Plt Count (160-400) X10*3/uL MPV (9.4-12.3) fL Immature Gran % (Auto) (0.0-0.4) % Neut % (Auto) (45-73) % Lymph % (Auto) (20-40) % Hodgeman % (Auto) (2-11) % Eos % (Auto) (0-4) % Baso % (Auto) (0-2) % Lymph # (Auto) (1.2-4.9) X10*3/uL Hodgeman # (Auto) (0.1-1.2) X10*3/uL Eos # (Auto) (0.0-0.4) X10*3/uL Baso # (Auto) (0.0-0.2) X10*3/uL Abs Immat Gran (auto) (0.00-0.03) X10*3/uL Absolute Neuts (auto) (2.0-8.3) x10*3/uL Absolute Nucleated RBC (0.0-0.012) X10*3/uL Nucleated RBC % (auto) (0.0-0.2) /100WBC Sodium 144 (135-145) mmol/L Potassium 3.9 (3.3-5.1) mmol/L Chloride 107 (96-108) mmol/L Carbon Dioxide 29 (22-29) mmol/L Anion Gap 12 (12-20) BUN 14 (9-16) mg/dL Creatinine 0.82 (0.5-1.4) mg/dL Estim Creat Clear Calc 48.4 Estimated GFR > 60 Random Glucose 120 H (60-115) mg/dL Calcium 9.1 (8.4-10.2) mg/dL Magnesium 1.9 (1.6-2.6) mg/dL Total Bilirubin 0.6 (0.0-1.0) mg/dL AST 21 (5-31) U/L ALT 30 (0-31) U/L Alkaline Phosphatase 78 (39-117) U/L Troponin I High Sens (<3.5-17.0) ng/L B-Natriuretic Peptide (<100) pg/mL Total Protein 6.9 (6.5-8.0) g/dL Albumin 4.1 (3.5-5.0) g/dL COVID-19 (RUTHY) Negative (Negative) COVID-19 Clin Com See Note <LNADON Briones - Last Filed: 12/02/22 16:46> Independent Interpretation I performed an independent interpretation of an: EKG and Plain X-Ray <LANDON Briones - Last Filed: 12/02/22 16:46> Interpretation: Chest x-ray reviewed, no evidence of pneumonia or focal infiltrate. EKG reviewed - normal sinus rhythm, ventricular rate 69 beats per minute, normal ME interval, normal QTC, no ST segment elevations or depressions. <LANDON Briones Last Filed: 12/02/22 16:46> Radiology Impression Discussion of test interpretation with radiology: I have reviewed the radiologist's reading. <LANDON Briones - Last Filed: 12/02/22 16:46> Radiologist Impression: EXAMINATION: XR CHEST CLINICAL INFORMATION: Anterior chest pain COMPARISON: 09/08/2022 TECHNIQUE: 2 views of the chest were obtained. FINDINGS: Heart and pulmonary vessels appear normal. Biconvex thoracolumbar scoliosis is again seen. The right hemidiaphragm remains elevated. No infiltrates, effusions or lung masses. XR/XR chest 2V IMPRESSION: No acute intrathoracic disease. ? <LANDON Briones Last Filed: 12/02/22 16:46> Independent Historian Clinical information obtained from an independent historian. History obtained from or confirmed by: Other (daughter) <LANDON Briones Last Filed: 12/02/22 16:46> External Record Review External record reviewed: Office record, Outpatient record, Prior outpatient labs and Prior outpatient radiology <LANDON Briones Last Filed: 12/02/22 16:46> Prescription Management I considered prescription management with: Antibiotic and Other (steroid and antitussive) <LANDON Briones Last Filed: 12/02/22 16:46> Chronic Conditions Patient?s care impacted by: Other (asthma) <LANDON Briones Last Filed: 12/02/22 16:46> Critical Care Time Critical Care Time Critical Care Time: No <LANDON Briones Last Filed: 12/02/22 16:46> Discharge Plan Discharge Clinical Impression: Asthma with acute exacerbation <LANDON Garcia Last Filed: 12/02/22 15:31> Patient Disposition: Home, Self-Care <LANDON Garcia - Last Filed: 12/02/22 15:31> Instructions: Asthma (ED) <LANDON Garcia - Last Filed: 12/02/22 15:31> Additional Instructions: Your chest x-ray today did not show any evidence of pneumonia. Your lab workup was normal. Take the prescribed steroid taper as directed on the bottle. Use your nebulizer every 4 hours until your symptoms are completely resolved. Take the prescribed antibiotic as directed, complete the entire course. Follow-up with your doctor next week. If you develop new or worsening symptoms call 911 or come back to the ER for further evaluation. Lowe radiograf?a de t?rax de hoy no mostr? ninguna evidencia de neumon?a. Lowe an?lisis de laboratorio fue normal. Gueydan la dosis de esteroides recetada mendoza se indica en el frasco. Use lowe nebulizador cada 4 horas hasta que erika s?ntomas se resuelvan por completo. Gueydan el antibi?sakshi recetado seg?n las indicaciones, complete todo el curso. Seguimiento con lowe m?dico la pr?xima semana. Si desarrolla s?ntomas nuevos o que empeoran, llame al 911 o regrese a la nestor de emergencias para elin evaluaci?n adicional. <LANDON Garcia - Last Filed: 12/02/22 15:31> Prescriptions: New albuterol sulfate 2.5 mg/0.5 mL solution for nebulization 5 mg inhalation Q4H PRN (Reason: shortness of breath or wheezing) Qty: 30 0RF prednisone 10 mg tablets,dose pack See Taper PO DAILY Qty: 48 0RF Taper: Prednisone 40 mg daily for 3 Days and 0 Hour 30 mg daily for 3 Days and 0 Hour 20 mg daily for 3 Days and 0 Hour 10 mg daily for 3 Days and 0 Hour benzonatate 100 mg capsule 100 mg PO TID PRN (Reason: cough) Qty: 30 0RF azithromycin [Zithromax Z-Lux] 250 mg tablet See Rx Instructions .ROUTE .COMPLEX Qty: 6 0RF Rx Instructions: take 500 mg today (day 1), then 250 mg for 4 days (days 2-5) No Action levothyroxine 50 mcg tablet 50 mcg PO DAILY 90 Days Qty: 90 3RF Rx Instructions: Dose decreased to 50 mcg please discontinue prior prescription of 75 mcg meloxicam 15 mg tablet 15 mg PO .QD Qty: 90 0RF cyclobenzaprine 10 mg tablet 10 mg PO TID PRN (Reason: muscle spasm) Qty: 14 0RF zolpidem 10 mg tablet 10 mg PO BEDTIME PRN (Reason: Sleep) mirtazapine 30 mg tablet 30 mg PO BEDTIME citalopram 10 mg tablet 10 mg PO DAILY albuterol sulfate 2.5 mg /3 mL (0.083 %) solution for nebulization inhalation Q6H PRN (Reason: asthma) atorvastatin 40 mg tablet 40 mg PO DAILY montelukast 10 mg tablet 10 mg PO DAILY cetirizine 10 mg tablet 10 mg PO DAILY PRN (Reason: Allergic Symptoms) multivitamin Tablet 1 tab PO DAILY acetaminophen 500 mg tablet 1,000 mg PO Q6H PRN (Reason: pain) budesonide-formoterol 160-4.5 mcg/actuation HFA aerosol inhaler 2 puff PO BID clobetasol 0.05 % ointment topical DAILY calcium citrate 250 mg calcium tablet 500 mg PO BID 90 Days Qty: 360 1RF Citrucel 500 mg tablet 500 mg PO DAILY Qty: 90 2RF Rx Instructions: libby todas las mananas con un vaso de agua lleno pantoprazole 40 mg tablet,delayed release (DR/EC) 40 mg PO DAILY Qty: 90 2RF Rx Instructions: libby un comprimido media hora antes del desayuno Linzess 72 mcg capsule 72 mcg PO DAILY Qty: 90 2RF ascorbate calcium (vitamin C) 500 mg tablet 1 g PO Q6H <LANDON Garcia - Last Filed: 12/02/22 15:31> Referrals: [facility] [Primary Care Provider] - <LANDON Garcia - Last Filed: 12/02/22 15:31> Print Language: Nepali <LANDON Garcia - Last Filed: 12/02/22 15:31>
--- NOTE | 2022-12-02 12:19 | ECG_ITS ---
Test Reason : SOB Blood Pressure : / mmHG Vent. Rate : 069 BPM Atrial Rate : 069 BPM P-R Int : 128 ms QRS Dur : 088 ms QT Int : 418 ms P-R-T Axes : 003 -12 010 degrees QTc Int : 447 ms Normal sinus rhythm Nonspecific ST and T wave abnormality When compared with ECG of 19-MAR-2022 21:28, No significant change was found Referred By: Earlene Travis Electronically Signed By:MELE OREILLY
[2022-12-02] MEDS: methylPREDNISolone Sod Succ 125 MG/2 ML VIAL 60 MG IM (12:56)
[2022-12-02 12:58] LABS: MANUAL DIFF FLAG NO
[2022-12-02 13:02] LABS: Basophils Percent Auto 0.7 % (0-2); Eosinophils Absolute Auto 0.4 X10*3/uL (0.0-0.4); Hematocrit 38.5 % (37.0-47.0); Hemoglobin 12.5 g/dl (12.0-16.0); Imm Gran Abs Auto 0.02 X10*3/uL (0.00-0.03); Imm Gran Pct Auto 0.4 % (0.0-0.4); Lymphocytes Absolute Auto 1.8 X10*3/uL (1.2-4.9); Lymphocytes Percent Auto 30.9 % (20-40); Mean Corpuscular HGB Conc 32.5 g/dl (31.0-35.0); Mean Corpuscular Hemoglobin 31.3 pg (27.0-33.0); Mean Corpuscular Volume 96.3 fL (80.0-98.0); Monocytes Absolute Auto 0.4 X10*3/uL (0.1-1.2); Monocytes Percent Auto 6.5 % (2-11); Neutrophils Absolute Auto 3.1 x10*3/uL (2.0-8.3); Neutrophils Percent Auto 54.5 % (45-73); Platelet Count 202 X10*3/uL (160-400); Red Cell Distribution Width 13.9 % (11.0-16.0); White Blood Count 5.7 X10*3/uL (4.8-10.8)
[2022-12-02 13:07] VITALS: PULSE 75; RESP 18; O2SAT 97
[2022-12-02 13:20] LABS: B Type Natriuretic Peptide 35 pg/mL (<100)
[2022-12-02 13:24] LABS: Troponin-I High Sensitivity < 3.5 ng/L (<3.5-17.0)
--- NOTE | 2022-12-02 13:38 | PC.NURSE ---
72 y/o F pw daughter for asthma exacerbation. satting 98 on RA but with audible expiratory wheezes. pt is aox3, VSS, iv in place, meds given, labs drawn and sent, respiratory at bedside for treatment.
[2022-12-02 14:11] LABS: COVID-19 Test Negative (Negative); IDNOW Serial# 16C4AD1C
[2022-12-02 15:31] VITALS: BP 119/67; PULSE 66; RESP 16; TEMP 36.3; O2SAT 93
[2022-12-02 16:04] LABS: Alanine Aminotransferase 30 U/L (0-31); Albumin Level 4.1 g/dL (3.5-5.0); Alkaline Phosphatase 78 U/L (39-117); Anion Gap 12 (12-20); Aspartate Amino Transferase 21 U/L (5-31); Bilirubin Total 0.6 mg/dL (0.0-1.0); Blood Urea Nitrogen 14 mg/dL (9-16); Calcium 9.1 mg/dL (8.4-10.2); Carbon Dioxide 29 mmol/L (22-29); Chloride 107 mmol/L (96-108); Creatinine Clr Calc Pharmacy 48.4; Estimated Glomerular Filt Rate > 60; Glucose Random 120 mg/dL (60-115); Magnesium 1.9 mg/dL (1.6-2.6); Potassium 3.9 mmol/L (3.3-5.1); Sodium 144 mmol/L (135-145); Total Protein 6.9 g/dL (6.5-8.0)
[2022-12-02 16:33] VITALS: BP 125/68; PULSE 72; RESP 20; TEMP 36.9; O2SAT 93
== END 2022-12-02 16:45 | disposition home or self-care (01) ==
PROVIDERS: Physician Assistant Medical; Emergency Provider Emergency Medicine
DX: J45.901 Unspecified asthma with (acute) exacerbation (principal); Z20.822 Contact with and (suspected) exposure to COVID-19; R06.02 Shortness of breath; I10 Essential (primary) hypertension; Z79.02 Long term (current) use of antithrombotics/antiplatelets; Z79.899 Other long term (current) drug therapy
CPT/HCPCS: 71046; 80053; 83735; 83880; 84484; 85025; 87635; 93005; 94640; 96372; 99284; J2930

== ENCOUNTER → 2022-12-04 08:48 | Outpatient (BNVA) | payer MEDICARE, SELFPAY | PROVIDERS: PCP Registered Nurse; Referring Provider Registered Nurse; Visit Provider Nurse Practitioner Family | DX: K21.9 Gastro-esophageal reflux disease without esophagitis (principal); K59.04 Chronic idiopathic constipation; K86.1 Other chronic pancreatitis; Z90.49 Acquired absence of other specified parts of digestive tract | CPT/HCPCS: 99212 ==

== ENCOUNTER 2023-02-26 07:01 | Day surgery (SDC) | payer MEDICARE, SELFPAY ==
[2023-02-21 08:46] VITALS: BMI 27.9
--- NOTE | 2023-02-22 13:04 | MHC.SHP ---
Pre-Procedural Eval Section A Date of Service: 02/22/23 The patient is an INPATIENT: No Changes since office visit: No Cold of Flu in the past 2 weeks, No New Medical Problems, No Changes in Medication and No Patient answered all questions The History & Physical has been completed within 30 days and I have reviewed it.: Yes Section B Chief Complaint: Age-related nuclear cataract, right eye Allergies: Allergies Allergy/AdvReac Type Severity Reaction Status Date / Time morphine [MORPHINE] Allergy Unknown RASH Verified 12/04/22 08:56 Plan Diagnosis/Plan: Unchanged I have reviewed the history and physical and performed a pertinent physical examination on my patient. No changes have occurred unless specified. Time Spent With Patient Time: Total time managing care of this patient today ____ minutes.
--- NOTE | 2023-02-23 09:48 | P.CONAN_ITS ---
Documented by User: Cindy Thompson NP 02/23/23 09:55 HPI - Anesthesia Eval Consult details Narrative: 72yo F for Right Cataract Extraction IOL Insertion PCP cleared No previous cataract PMFSH Active Problems Active Problems: All Active Problems (Updated 02/21/23 @ 08:40 by Pratima Cardenas, RN) Osteoporosis (Acute) Lumbar radicular pain (Acute) Right hip pain (Acute) Hypertension (Acute) Hyperthyroidism (Acute) Vitamin D deficiency (Acute) Primary hyperparathyroidism (Acute) Postablative hypothyroidism (Acute) Past Medical History Medical History (Updated 02/21/23 @ 08:40 by Pratima Cardenas RN) Arthritis Asthma Back pain Diabetes HLD (hyperlipidemia) Hypertension Hyperthyroidism Hypothyroidism Kidney stone Postablative hypothyroidism Primary hyperparathyroidism Vitamin D deficiency Family History Family History Father No problems noted. Mother No problems noted. Family history of problems with anesthesia: No Surgical History Surgical History (Updated 02/26/23 @ 07:54 by Mari Burks) History of carpal tunnel release of both wrists History of esophagogastroduodenoscopy (EGD) Hx of cataract removal with insertion of prosthetic lens Hx of cholecystectomy Hx of colonoscopy Hx of endoscopy Hx of hysterectomy Hx of lithotripsy S/P subtotal parathyroidectomy History of Problems with Anesthesia: No Social History Social History Household Members: Family Are you a primary respiratory care technician to a significant other at home: No Do you presently have visiting nurse or other home services: No Alcohol intake: never Patient Tobacco Use Status: Never used Tobacco Use of substances other than those prescribed or required for medical reasons: No Have you been hit, kicked, punched, or otherwise hurt by someone within the past year? If so, by whom?: No Are you DNR?: No Advance Directives: No Advance Directives Information Provided: Yes Advance Directives on File: No Recently lost weight without trying: No Eating poorly because of decreased appetite: No Nutrition Risks: No Nutritional Risk Patient : No : No Poor oral hygiene: Yes (loose upper and lower teeth) Meds Allergies Allergy/AdvReac Type Severity Reaction Status Date / Time morphine [MORPHINE] Allergy Unknown RASH Verified 02/26/23 07:52 Home Medications Medication Instructions Recorded Confirmed Last Taken Type acetaminophen 500 mg tablet 1,000 mg PO Q6H PRN pain 10/27/20 11/30/22 Unknown History albuterol sulfate 2.5 mg/3 mL mg inhalation Q6H PRN asthma 10/27/20 05/22/22 Unknown History (0.083 %) solution for nebulization atorvastatin 40 mg tablet 40 mg PO DAILY 10/27/20 11/30/22 Unknown History budesonide-formoterol HFA 160 2 puff PO BID 10/27/20 11/30/22 Unknown History mcg-4.5 mcg/actuation aerosol inhaler cetirizine 10 mg tablet 10 mg PO DAILY PRN Allergic 10/27/20 11/30/22 Unknown History Symptoms citalopram 10 mg tablet 10 mg PO DAILY 10/27/20 11/30/22 Unknown History clobetasol 0.05 % topical ointment g topical DAILY 10/27/20 05/22/22 Unknown History mirtazapine 30 mg tablet 30 mg PO BEDTIME 10/27/20 11/30/22 Unknown History montelukast 10 mg tablet 10 mg PO DAILY 10/27/20 11/30/22 Unknown History multivitamin 1 tab PO DAILY 10/27/20 11/30/22 Unknown History zolpidem 10 mg tablet 10 mg PO BEDTIME PRN Sleep 10/27/20 11/30/22 Unknown History ascorbate calcium (vitamin C) 500 1 g PO Q6H 03/28/22 11/30/22 Unknown History mg tablet Exam Exam Date and Time: February 23, 2023 0948 Height,Weight and Vital Signs: Height 4 ft 11 in Weight 62.596 kg Assessment and Plan Assessment Anesthesia Assessment: Chart Reviewed Final Anesthetic Review Family History of Problems with Anesthesia: No History of Problems with Anesthesia: No Documented by User: Oswald Garnica MD 02/26/23 18:07 [facility] Past Medical History Medical History (Updated 02/21/23 @ 08:40 by Pratima Cardenas RN) Arthritis Asthma Back pain Diabetes HLD (hyperlipidemia) Hypertension Hyperthyroidism Hypothyroidism Kidney stone Postablative hypothyroidism Primary hyperparathyroidism Vitamin D deficiency Family History Family History Father No problems noted. Mother No problems noted. Surgical History Surgical History (Updated 02/26/23 @ 07:54 by Mari Burks) History of carpal tunnel release of both wrists History of esophagogastroduodenoscopy (EGD) Hx of cataract removal with insertion of prosthetic lens Hx of cholecystectomy Hx of colonoscopy Hx of endoscopy Hx of hysterectomy Hx of lithotripsy S/P subtotal parathyroidectomy Social History Social History Household Members: Family Are you a primary respiratory care technician to a significant other at home: No Do you presently have visiting nurse or other home services: No Alcohol intake: never Patient Tobacco Use Status: Never used Tobacco Use of substances other than those prescribed or required for medical reasons: No Have you been hit, kicked, punched, or otherwise hurt by someone within the past year? If so, by whom?: No Are you DNR?: No Advance Directives: No Advance Directives Information Provided: Yes Advance Directives on File: No Recently lost weight without trying: No Eating poorly because of decreased appetite: No Nutrition Risks: No Nutritional Risk Patient : No : No Poor oral hygiene: Yes (loose upper and lower teeth) Meds Allergies Allergy/AdvReac Type Severity Reaction Status Date / Time morphine [MORPHINE] Allergy Unknown RASH Verified 02/26/23 07:52 Home Medications Medication Instructions Recorded Confirmed Last Taken Type acetaminophen 500 mg tablet 1,000 mg PO Q6H PRN pain 10/27/20 11/30/22 Unknown History albuterol sulfate 2.5 mg/3 mL mg inhalation Q6H PRN asthma 10/27/20 05/22/22 Unknown History (0.083 %) solution for nebulization atorvastatin 40 mg tablet 40 mg PO DAILY 10/27/20 11/30/22 Unknown History budesonide-formoterol HFA 160 2 puff PO BID 10/27/20 11/30/22 Unknown History mcg-4.5 mcg/actuation aerosol inhaler cetirizine 10 mg tablet 10 mg PO DAILY PRN Allergic 10/27/20 11/30/22 Unknown History Symptoms citalopram 10 mg tablet 10 mg PO DAILY 10/27/20 11/30/22 Unknown History clobetasol 0.05 % topical ointment g topical DAILY 10/27/20 05/22/22 Unknown History mirtazapine 30 mg tablet 30 mg PO BEDTIME 10/27/20 11/30/22 Unknown History montelukast 10 mg tablet 10 mg PO DAILY 10/27/20 11/30/22 Unknown History multivitamin 1 tab PO DAILY 10/27/20 11/30/22 Unknown History zolpidem 10 mg tablet 10 mg PO BEDTIME PRN Sleep 10/27/20 11/30/22 Unknown History ascorbate calcium (vitamin C) 500 1 g PO Q6H 03/28/22 11/30/22 Unknown History mg tablet Exam Airway Mallampati Class: III Denture: Upper Loose/Missing/Broken Teeth: Yes Assessment and Plan Assessment Anesthesia Assessment: Anesthesia Plan Discussed Final Anesthetic Review NPO: Yes ASA Class: II Final Preanesthetic Review: Meds/Allgs Chart Reviewed, Consent Obtained/Reviewed and Anes Risks/Benef Reviewed Patient Risk: Intermediate Procedure Risk: Intermediate Anesthetic Plan Anesthetic Plan: MAC: and Agree w/ Assess. and Plan Disposition: Standard PACU
[2023-02-26 07:46] VITALS: BP 169/85; PULSE 61; RESP 16; TEMP 36.3; O2SAT 97
[2023-02-26 07:46] LABS: Glucose, Whole Blood 81 mg/dL (60-115)
[2023-02-26] MEDS: Lactated Ringers 500 ML 50 ML IV (07:50)
[2023-02-26] MEDS: Tetracaine HCl/PF 0.5% Oph Sol 4 ML DROPS 1 DROP EYE-RIGHT (07:50)
[2023-02-26] MEDS: Cyclopentolate 1 % Ophth Sol 2 ML DRPBTL 1 DROP EYE-RIGHT ×3 (07:51→08:07)
[2023-02-26] MEDS: Ketorolac Tromethamine 0.5% Op 5 ML DROPS 1 DROP EYE-RIGHT ×3 (07:55→08:11)
[2023-02-26] MEDS: Phenylephrine HCL 2.5% Oph SoL 2 ML BOTTLE 1 DROP EYE-RIGHT ×3 (07:57→08:13)
--- NOTE | 2023-02-26 09:03 | P.PCNO_ITS ---
Ophthalmology Procedure Procedure Date of Service: 02/26/23 Ophthalmology Viscoelastic: Healon Duet Dual Pack Pro Ophthalmology Lenses: TECNIS ZXR00 (21.5) Procedure Notes: PREOPERATIVE DIAGNOSIS: Decreased visual acuity right eye secondary to cataract POSTOPERATIVE DIAGNOSIS: Same PROCEDURE: Right cataract extraction with multifocal intraocular lens insertion SURGEON: Jhon Colunga M.D. ANESTHESIA: Topical/MAC ESTIMATED BLOOD LOSS: None COMPLICATIONS: None After obtaining informed consent, the patient was brought to the operating room suite and placed in the supine position. After adequate sedation per anesthesia, topical drops of Tetracaine were given to the right eye. The eye was then prepped and draped in the usual sterile fashion. The operating room microscope was then positioned over the operative eye and a lid speculum placed. A paracentesis was created. Viscoelastic was then instilled into the anterior chamber. A three plane incision was then created temporally, utilizing a 2.85 mm keratome. Capsulotomy forceps were then utilized to create a circular tear capsulotomy. Hydrodissection and hydrodelineation were carried out until adequate mobilization of the nucleus occurred. Phacoemulsification was then utilized to remove the dense central nu cleus followed by removal of the cortical material utilizing the automated aspiration irrigation unit. Viscoelastic was instilled into the posterior capsular bag followed by placement of a multifocal posterior chamber intraocular lens without difficulty. The residual Viscoelastic was then removed utilizing the automated IA machine. The wound was checked and found to be watertight. The patient tolerated the procedure well and the lid speculum was removed. Intracameral injection of Vigamox 0.1 mL followed by a subtenon injection of Kenalog-40 0.2 mL were administered. The patient will be seen in the a.m.
[2023-02-26 09:31] VITALS: BP 148/85; PULSE 60; RESP 16; TEMP 36.2; O2SAT 95
== END 2023-02-26 09:36 | disposition home or self-care (01) ==
PROVIDERS: Visit Provider Ophthalmology
PROC: (CPT 66984; principal; 2023-02-26 09:00)
DX: H25.11 Age-related nuclear cataract, right eye (principal); H54.7 Unspecified visual loss; H18.413 Arcus senilis, bilateral; H11.153 Pinguecula, bilateral; H17.89 Other corneal scars and opacities; I10 Essential (primary) hypertension; E11.9 Type 2 diabetes mellitus without complications; E03.9 Hypothyroidism, unspecified; M81.0 Age-related osteoporosis without current pathological fracture; E78.5 Hyperlipidemia, unspecified; J45.909 Unspecified asthma, uncomplicated; R20.2 Paresthesia of skin; Z79.51 Long term (current) use of inhaled steroids; Z79.899 Other long term (current) drug therapy; Z88.8 Allergy status to other drugs, medicaments and biological substances; Z96.1 Presence of intraocular lens
CPT/HCPCS: 66984; 82947; J2250; J3010; J3301; V2788

== ENCOUNTER → 2023-03-06 09:07 | Outpatient (BNVA) | payer MEDICARE, SELFPAY | PROVIDERS: Visit Provider Nurse Practitioner Family | DX: K59.04 Chronic idiopathic constipation (principal); K21.9 Gastro-esophageal reflux disease without esophagitis | CPT/HCPCS: 99212 ==

== ENCOUNTER 2023-03-22 15:17 | Outpatient (REF) | payer MEDICARE, SELFPAY ==
[2023-03-22 16:39] LABS: Alanine Aminotransferase 36 U/L (0-31); Albumin Level 4.4 g/dL (3.5-5.0); Alkaline Phosphatase 66 U/L (39-117); Anion Gap 12 (12-20); Aspartate Amino Transferase 33 U/L (5-31); Bilirubin Total 0.7 mg/dL (0.0-1.0); Blood Urea Nitrogen 18 mg/dL (9-16); Calcium 10.1 mg/dL (8.4-10.2); Carbon Dioxide 31 mmol/L (22-29); Chloride 108 mmol/L (96-108); Estimated Glomerular Filt Rate > 60; Glucose Random 90 mg/dL (60-115); Phosphorus 4.2 mg/dL (2.7-4.5); Potassium 5.2 mmol/L (3.3-5.1); Sodium 146 mmol/L (135-145); Total Protein 7.4 g/dL (6.5-8.0)
[2023-03-22 16:56] LABS: Free T4 (Free Thyroxine) 0.89 ng/dL (0.71-1.85); Thyroid Stimulating Hormone 1.43 uIU/mL (0.32-4.0); Vitamin D 25-OH Total 63.9 ng/mL (>30)
[2023-03-23 16:24] LABS: Calcium (PTHI) 9.6 mg/dL (8.6-10.4); PTHI 55 pg/mL (16-77)
== END 2023-03-22 15:18 | disposition home or self-care (01) ==
LOC: HO.LAB 15:17
PROVIDERS: PCP Registered Nurse; Visit Provider Internal Medicine
DX: M81.0 Age-related osteoporosis without current pathological fracture (principal); E55.9 Vitamin D deficiency, unspecified; E21.0 Primary hyperparathyroidism
CPT/HCPCS: 36415; 80053; 82306; 83970; 84100; 84439; 84443

== ENCOUNTER 2023-04-03 09:20 | Outpatient (REF) | payer MEDICARE, SELFPAY ==
[2023-04-03 11:04] LABS: Potassium 4.8 mmol/L (3.3-5.1)
== END 2023-04-03 09:21 | disposition home or self-care (01) ==
LOC: HO.LAB 09:20
PROVIDERS: PCP Registered Nurse; Visit Provider Internal Medicine
DX: M81.0 Age-related osteoporosis without current pathological fracture (principal)
CPT/HCPCS: 36415; 84132

== ENCOUNTER 2023-05-11 10:09 | Outpatient (REF) | payer MEDICARE, SELFPAY ==
--- NOTE | ~2023-05-11 | MM_ITS ---
EXAMINATION: BONE DENSITOMETRY CLINICAL INDICATION: Age-related osteoporosis without current pathological fracture. COMPARISON: Previous BD dated 05/10/2021 and baseline BD dated 12/22/2009, spine and left hip; 05/10/2021, left forearm radius 33%. TECHNIQUE: Using a Rabbit TV DXA System (software version: 13.1) manufactured by [employer], dual-energy x-ray absorptiometry was performed of the lumbar spine and left hip. The images are of good technical quality. Summary results are attached. FINDINGS: LEFT FEMUR, NECK: Current: BMD 0.655 g/cm2, Z-score -0.7, T-score -2.8, osteoporosis. Prior: BMD 0.687 g/cm2. Baseline: BMD 0.707 g/cm2. LEFT FEMUR, TOTAL: Current: BMD 0.695 g/cm2, Z-score -0.6, T-score -2.5, osteoporosis, 7.6% decrease from previous, 15.8% decrease from baseline (<5% change is not significant). Prior: BMD 0.752 g/cm2. Baseline: BMD 0.825 g/cm2. AP SPINE L1-L3 (excluding L4): The data of L1-L4 has been changed to exclude the L4 vertebral body, because degenerative sclerosis at this level may cause overestimation of lumbar spine density. Current: BMD 0.660 g/cm2, Z-score -2.3, T-score -4.3, osteoporosis, 11.2% decrease from previous, 16.1% decrease from baseline (<5% change is not significant). Prior: BMD 0.743 g/cm2. Baseline: BMD 0.787 g/cm2. LEFT FOREARM RADIUS 33%: BMD 0.596 g/cm2, Z-score -1.0, T-score -3.2, osteoporosis, 1.7% increase from baseline (<5% change is not significant). Baseline: BMD 0.586 g/cm2. IDENTIFIED RISK FACTORS: Early menopause, secondary osteoporosis, hysterectomy, bilateral oophorectomy, height loss, history of fracture (adult), hyperparathyroidism, low calcium intake. HISTORY OF FRACTURE: Wrist. MEDICATIONS: Calcium supplements or multivitamin, vitamin D. MM/XR DEXA appendicular skeleton IMPRESSION: 1. DIAGNOSIS: Severe osteoporosis based on the lowest T-score value of -4.3 in the lumbar spine and fracture history applying World Health Organization criteria. 2. 10-YEAR FRACTURE RISK PREDICTION, FRAX: According to the guidelines, FRAX calculation should only be performed on patients in the osteopenia bone density category. Therefore, FRAX was not performed on this patient. 3. Treatment Recommendations: NOF guidelines recommend consideration for treatment in postmenopausal women and men age 50 and older presenting with the following: -A hip or vertebral (clinical or morphometric) fracture. -T-score less than or equal to -2.5 at the femoral neck or spine after appropriate evaluation to exclude secondary causes. -Low bone mass at the hip or spine and a 10-year fracture probability by FRAX of greater than or equal to 3% for hip fracture or greater than or equal to 20% for major osteoporotic fracture based on the [place] adapted WHO algorithm. 4. Other Recommendations: All treatment decisions require clinical judgment and consideration of individual patient factors, including patient preferences, comorbidities, previous drug use, risk factors not captured in the FRAX model (e.g. frailty, falls, vitamin D deficiency, increased bone turnover, interval significant decline in bone density) and possible under or overestimation of fracture risk by FRAX. Additional medical evaluation for secondary cause of low bone mineral density may be appropriate. FUTURE SCAN RECOMMENDATION: People with diagnosed cases of osteoporosis or at high risk for fracture should have regular bone mineral density tests. For patients eligible for Medicare, routine testing is allowed once every 2 years. The testing frequency can be increased to one year for patients who have rapidly progressing disease, those who are receiving or discontinuing medical therapy to restore bone mass, or have additional risk factors.
== END 2023-05-11 10:10 | disposition home or self-care (01) ==
LOC: HO.MAMMO 10:09
PROVIDERS: PCP Registered Nurse; Visit Provider Internal Medicine
DX: Z13.820 Encounter for screening for osteoporosis (principal); Z78.0 Asymptomatic menopausal state; M81.0 Age-related osteoporosis without current pathological fracture
CPT/HCPCS: 77081

== ENCOUNTER → 2023-05-11 10:30 | Outpatient (BNV) | payer MEDICARE, SELFPAY | PROVIDERS: PCP Registered Nurse; Visit Provider Radiology Diagnostic Radiology | DX: M81.0 Age-related osteoporosis without current pathological fracture (principal) | CPT/HCPCS: 77080; 77081 ==

== ENCOUNTER 2023-05-21 08:58 | Outpatient (AMB) | payer MEDICARE, SELFPAY ==
--- NOTE | 2023-05-21 08:59 | A.OFFVIS_ITS ---
Intake Intake Visit Reasons: F/U Osteoporosis Intake Note: Osteoporosis follow up visit. Histotechnologist Required: No Allergies morphine [MORPHINE] Allergy (Unknown, Verified 05/21/23 09:22) RASH Medication List - Last Reconciled 05/21/23 by Belen Pereira, DO acetaminophen 1,000 mg PO Q6H PRN albuterol sulfate 5 mg inhalation Q4H PRN albuterol sulfate mg inhalation Q6H PRN amlodipine 5 mg PO DAILY ascorbate calcium (vitamin C) 1 g PO Q6H atorvastatin 40 mg PO DAILY budesonide-formoterol 160-4.5 mcg/actuation 2 puffs PO BID calcium citrate 500 mg (2 x 250 mg calcium) PO BID 90 days cetirizine 10 mg PO DAILY PRN citalopram 10 mg PO DAILY clobetasol 0.05% grams topical DAILY cyclobenzaprine 10 mg PO TID PRN famotidine (Pepcid) 20 mg PO BEDTIME levothyroxine 50 mcg PO DAILY 90 days linaclotide (Linzess) 145 mcg PO DAILY linaclotide (Linzess) 290 mcg PO QAM lorazepam 0.25 - 0.5 mg PO meloxicam 15 mg PO DAILY methylcellulose (laxative) (Citrucel) 500 mg PO DAILY mirtazapine 30 mg PO BEDTIME montelukast 10 mg PO DAILY multivitamin 1 tab PO DAILY pantoprazole 40 mg PO DAILY zolpidem 10 mg PO BEDTIME PRN HPI HPI Comments History of Present Illness Details 72 YO Female with a PMHx Osteoporosis due to Hyperparathyroidism, now S/P 3.5 gland parathyroidectomy, as well as hyperthyroidism who is seen in F/U. She was previously followed by Dr. Rivas. She has a history of Osteoporosis with prior treatment with oral bisophosphonates as well as Prolia. She failed treatment with oral bisophosphonates and was switched to Prolia in April 2019. It appears she had 2 doses, the second April 2020. She was then diagnosed with primary hyperparathyroidism and underwent a subtotal parathyroidectomy (3.5 gland resection) with only a remnant of the R inferior gland remaining. This was completed 02/15/2021. Intraoperative PTH declined fr om 92 to 22, indicating cure. She does report prior fragility fracture of her R wrist and Clavicle. 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 She remains on Levothyroxine 50 mcg PO daily with TSH at goal. She reports anxiety, but otherwise states she feels well. She has no other complaints today. DEXA: 05/11/2023 FINDINGS: LEFT FEMUR, NECK: Current: BMD 0.655 g/cm2, Z-score -0.7, T-score -2.8, osteoporosis. Prior: BMD 0.687 g/cm2. Baseline: BMD 0.707 g/cm2. LEFT FEMUR, TOTAL: Current: BMD 0.695 g/cm2, Z-score -0.6, T-score -2.5, osteoporosis, 7.6% decrease from previous, 15.8% decrease from baseline (<5% change is not significant). Prior: BMD 0.752 g/cm2. Baseline: BMD 0.825 g/cm2. AP SPINE L1-L3 (excluding L4): The data of L1-L4 has been changed to exclude the L4 vertebral body, because degenerative sclerosis at this level may cause overestimation of lumbar spine density. Current: BMD 0.660 g/cm2, Z-score -2.3, T-score -4.3, osteoporosis, 11.2% decrease from previous, 16.1% decrease from baseline (<5% change is not significant). Prior: BMD 0.743 g/cm2. Baseline: BMD 0.787 g/cm2. LEFT FOREARM RADIUS 33%: BMD 0.596 g/cm2, Z-score -1.0, T-score -3.2, osteoporosis, 1.7% increase from baseline (<5% change is not significant). Baseline: BMD 0.586 g/cm2. IDENTIFIED RISK FACTORS: Early menopause, secondary osteoporosis, hysterectomy, bilateral oophorectomy, height loss, history of fracture (adult), hyperparathyroidism, low calcium intake. Labs: Laboratory Tests 03/22/23 03/22/23 15:38 15:38 Creatinine 0.89 Estimated GFR > 60 Calcium 10.1 D Albumin 4.4 TSH 1.43 Free T4 0.89 PTH Intact 55 Calcium (PTH Intac t) 9.6 PFSH Medical History Arthritis Asthma Back pain Diabetes HLD (hyperlipidemia) Hypertension Hyperthyroidism Hypothyroidism Kidney stone Postablative hypothyroidism Primary hyperparathyroidism Vitamin D deficiency Surgical History History of carpal tunnel release of both wrists History of esophagogastroduodenoscopy (EGD) Hx of cataract removal with insertion of prosthetic lens Hx of cholecystectomy Hx of colonoscopy Hx of endoscopy Hx of hysterectomy Hx of lithotripsy S/P subtotal parathyroidectomy Family History Father No problems noted. Mother No problems noted. Social History Household Members: Family Are you a primary point of care specialist to a significant other at home: No Do you presently have visiting nurse or other home services: No Alcohol intake: never Patient Tobacco Use Status: Never used Tobacco Assessment & Plan Assessment & Plan (1) Primary hyperparathyroidism: Code(s): E21.0 - Primary hyperparathyroidism Plan: Patient with primary hyperparathyroidism secondary to multigland hyperplasia. She is s/p a 3.5 gland parathyroidectomy 02/15/2021 with PTH indicating cure. Postoperatively a 2 year drug holiday is recommended in order to allow for bone remodeling. She is now 2 years postop and her repeat DXA did reveal significant decline in her spine as well as her hip. We discussed this in detail today. I do recommend we initiate treatment at this time. Anabolic is contraindicated given her history of hyperparathyroidism. She did receive Prolia in the past and failed treatment. I recommend Reclast at this time. Renal function is WNL as is Calcium and Vitamin D. We discussed potential ADRs of flu like symptoms with body aches, osteonecrosis of the jaw and atypical fracture. All questions were answered. Plan for now is to proceed with once yearly IV Reclast. She will repeat labs 2 weeks after treatment and will F/U 6 months later. We did discuss fall prevention. All of her questions were answered. She is in agreement with this plan of care. I spent 20 minutes in reviewing the record, seeing the patient and documenting in the medical record, including 5 minutes on the phone with the Patient. (2) Vitamin D deficiency: Code(s): E55.9 - Vitamin D deficiency, unspecified Plan: Vitamin D at goal. No changes. (3) Osteoporosis: Code(s): M81.0 - Age-related osteoporosis without current pathological fracture Qualifiers: Osteoporosis type: age-related Presence of current pathological fracture: without current pathological fracture Qualified Code(s): M81.0 - Age- related osteoporosis without current pathological fracture Plan: Patient with Osteoporosis at all sites due to primary hyperparathyroidism. Management as per hyperparathyroidism section. Telehealth Telehealth Location of provider rendering services: practice address Location of patient: address on file Patient Identification confirmed using: Name, : Yes Telehealth method: voice only Patient verbally consented to treatment: Yes Patient verbally consented to billing insurance company: Yes Patient informed of any privacy concerns related to visit: Yes Coding Level of Care Code Tele Est Pt Level 3 (51994) Diagnoses Primary hyperparathyroidism E21.0 Vitamin D deficiency E55.9 Osteoporosis M81.0 Osteoporosis type: age-related Presence of current pathological fracture: without current pathological fracture
== END 2023-05-21 12:40 | disposition home or self-care (01) ==
LOC: HO.ENCR 08:58
PROVIDERS: PCP Registered Nurse; Visit Provider Internal Medicine
DX: E21.0 Primary hyperparathyroidism (principal); E55.9 Vitamin D deficiency, unspecified; M81.0 Age-related osteoporosis without current pathological fracture
CPT/HCPCS: 99441

== ENCOUNTER → 2023-05-21 08:58 | Outpatient (BNVA) | payer MEDICARE, SELFPAY | PROVIDERS: PCP Registered Nurse; Visit Provider Internal Medicine ==

== ENCOUNTER 2023-06-05 14:15 | Outpatient (REF) | payer MEDICARE, SELFPAY ==
[2023-06-05 15:34] LABS: Alanine Aminotransferase 37 U/L (0-31); Albumin Level 4.2 g/dL (3.5-5.0); Alkaline Phosphatase 82 U/L (39-117); Anion Gap 10 (12-20); Aspartate Amino Transferase 31 U/L (5-31); Bilirubin Total 0.4 mg/dL (0.0-1.0); Blood Urea Nitrogen 23 mg/dL (9-16); Calcium 9.5 mg/dL (8.4-10.2); Carbon Dioxide 32 mmol/L (22-29); Chloride 107 mmol/L (96-108); Estimated Glomerular Filt Rate > 60; Glucose Random 136 mg/dL (60-115); Potassium 4.3 mmol/L (3.3-5.1); Sodium 145 mmol/L (135-145)
[2023-06-05 15:51] LABS: Free T4 (Free Thyroxine) 0.79 ng/dL (0.71-1.85); Thyroid Stimulating Hormone 3.23 uIU/mL (0.32-4.0); Vitamin D 25-OH Total 55.5 ng/mL (>30)
[2023-06-06 11:53] LABS: Calcium (PTHI) 9.5 mg/dL (8.6-10.4); PTHI 45 pg/mL (16-77)
[2023-06-07 17:53] LABS: Triiodothyronine T3 Total 57 ng/dL (76-181)
[2023-06-12 04:33] LABS: N-Telopeptide 29 (see note); NTXCreaRU 320 mg/dL (20-275)
== END 2023-06-05 14:16 | disposition home or self-care (01) ==
LOC: HO.LAB 14:15
PROVIDERS: Visit Provider Internal Medicine
DX: M81.0 Age-related osteoporosis without current pathological fracture (principal); E05.90 Thyrotoxicosis, unspecified without thyrotoxic crisis or storm; E55.9 Vitamin D deficiency, unspecified
CPT/HCPCS: 36415; 80053; 82306; 82523; 83970; 84100; 84439; 84443; 84480

== ENCOUNTER 2023-06-08 12:40 | Outpatient (REF) | payer MEDICARE, SELFPAY ==
[2023-06-08 15:54] LABS: MANUAL DIFF FLAG NO
[2023-06-08 16:12] LABS: Basophils Percent Auto 0.7 % (0-2); Eosinophils Absolute Auto 0.2 X10*3/uL (0.0-0.4); Eosinophils Percent Auto 3.5 % (0-4); Hematocrit 41.1 % (37.0-47.0); Hemoglobin 13.2 g/dl (12.0-16.0); Imm Gran Abs Auto 0.01 X10*3/uL (0.00-0.03); Imm Gran Pct Auto 0.2 % (0.0-0.4); Lymphocytes Percent Auto 33.8 % (20-40); Mean Corpuscular HGB Conc 32.1 g/dl (31.0-35.0); Mean Corpuscular Hemoglobin 31.3 pg (27.0-33.0); Mean Corpuscular Volume 97.4 fL (80.0-98.0); Mean Platelet Volume 10.7 fL (9.4-12.3); Monocytes Absolute Auto 0.4 X10*3/uL (0.1-1.2); Monocytes Percent Auto 6.8 % (2-11); Neutrophils Absolute Auto 3.3 x10*3/uL (2.0-8.3); Platelet Count 252 X10*3/uL (160-400); Red Blood Count 4.22 X10*6/uL (4.20-5.50); Red Cell Distribution Width 14.1 % (11.0-16.0); White Blood Count 5.9 X10*3/uL (4.8-10.8)
[2023-06-08 16:39] LABS: Thyroid Stimulating Hormone 2.53 uIU/mL (0.32-4.0)
== END 2023-06-08 12:41 | disposition home or self-care (01) ==
LOC: HO.HHCL 12:40
PROVIDERS: Visit Provider Registered Nurse
DX: R00.2 Palpitations (principal)
CPT/HCPCS: 36415; 84443; 85025

== ENCOUNTER 2023-06-12 09:57 | Outpatient (AMB) | payer MEDICARE, SELFPAY ==
--- NOTE | 2023-06-12 10:00 | A.OFFVIS_ITS ---
Intake Vital Signs 06/12/23 10:01 Height 4 ft 11 in Weight 135 lb 5.821 oz BMI 27.3 BP 150/73 H Blood Pressure Location Lt brachial Position Sitting Pulse 64 Intake Visit Reasons: 3 month follow up Intake Note: Hedy presents in office as a est.patient for a 3 month f/u for [facility] CC: Patient reports doing better and having regular BMs and doing better from abdominal pain. Of note patient states her doctor has been watching her BP be cause it has been uncontrolled lately. Account Executive Required: Yes Account Executive Language: Tajik Accompanied by: Self / Same As Patient Allergies morphine [MORPHINE] Allergy (Unknown, Verified 06/12/23 10:05) RASH HPI 3 month follow up HPI Details LAST VISIT GERD (gastroesophageal reflux disease) Continue pantoprazole 40 mg daily and famotidine 20 mg at bedtime. Discussed with patient avoiding dietary triggers and late night snacking. Staying upright for minimum 3 hours after meals discussed with patient Chronic idiopathic constipation Will increase Linzess to 290 mcg daily. Patient was also encouraged to increase water intake and activity to promote better bowel motility. I will see patient in 3 months, sooner on as needed basis. Patient is agreeable to this plan and verbalizes understanding instructions. She was given the opportunity to ask questions and all questions answered ? TODAY'S VISIT Patient is here today for follow-up. Patient reports that she has been feeling better. Takes pantoprazole in the morning and famotidine and bedtime. Her symptoms of acid reflux or completely suppressed. Patient denies dyspepsia, dysphagia or odynophagia. Patient reports that she has been moving her bowels well without any issues. Takes Linzess 290 mcg every morning. Patient denies any abdominal pain or discomfort. Denies melena, hematochezia, unintentional weight loss or ribbon like stools. Patient had colonoscopy in 2021, no polyps detected and neck is colorectal screening recommended for 10 years. Patient reports that she has been feeling well. Denies any GI concerning symptoms. Patient's blood pressure has been monitored by her PCP. Started taking amlodipine 2.5 mg daily. [facility] Medical History Kidney stone Back pain Arthritis HLD (hyperlipidemia) Hypothyroidism Diabetes Hypertension Asthma Hyperthyroidism Vitamin D deficiency Primary hyperparathyroidism Postablative hypothyroidism Surgical History Hx of colonoscopy History of esophagogastroduodenoscopy (EGD) Hx of endoscopy S/P subtotal parathyroidectomy History of carpal tunnel release of both wrists Hx of cataract removal with insertion of prosthetic lens Hx of lithotripsy Hx of cholecystectomy Hx of hysterectomy Family History Father No problems noted. Mother No problems noted. Social History Household Members: Family Are you a primary home health care case manager to a significant other at home: No Do you presently have visiting nurse or other home services: No Alcohol intake: never Patient Tobacco Use Status: Never used Tobacco Review of Systems Const Denies weight gain and Denies weight loss ENT Reports no additional complaints, Denies dysphagia and Denies odynophagia Card Reports no additional complaints Resp Reports no additional complaints GI Denies abdominal pain, Denies belching, Denies melena, Denies bloating, Denies change in bowel habits, Denies dysphagia, Denies excessive flatus, Denies dyspepsia, Denies heartburn, Denies diarrhea, Denies loose stools, Denies nausea, Denies odynophagia and Denies vomiting Musc Reports no additional complaints Neuro Reports no additional complaints Psych Reports no additional complaints Endo Reports no additional complaints Physical Exam Vital Signs: Last Vital Signs Pulse 64 06/12/23 10:01 BP 150/73 H 06/12/23 10:01 BMI result Body Mass Index 27.3 Const General: healthy appearing, no acute distress and well developed Nutritional Appearance: well nourished Orientation/consciousness: patient oriented x3 HEENT Head: Yes normal to inspection, Yes normocephalic and Yes atraumatic Face and sinus: Yes normal facial exam Mouth: Normal oral and palatal mucosa present Throat: Yes posterior oropharynx normal, Yes tonsils normal and Yes uvula midline Eyes General: appearance normal, both eyes and all related structures Neck Neck: Yes normal visual inspection, Yes full ROM and Yes trachea midline Thyroid: Thyroid normal Resp Effort & Inspection: normal respiratory effort, able to speak in complete sentences, no tracheal deviation and symmetric chest movement Auscultation: clear to auscultation bilaterally Cardio Rate: regular rate Heart sounds: S1 normal heart sound present and S2 normal heart sound present GI Inspection: Yes normal to inspection and No distended Palpation (GI): Soft to palpation, not firm, nontender and No hepatosplenomegaly present Auscultation: normal bowel sounds General: Yes no CVA tenderness Back/Spine/Pelvis Back: no CVA tenderness Skin General skin exam: elasticity normal, turgor normal and dry skin Neuro General: patient oriented x3 Psych Appearance: grossly normal Mental Status: mental status grossly normal Speech and movement: Normal speech and movement present Assessment & Plan Assessment & Plan (1) GERD (gastroesophageal reflux disease): Code(s): K21.9 - Gastro-esophageal reflux disease without esophagitis Qualifiers: Esophagitis presence: esophagitis presence not specified Qualified Code(s): K21.9 - Gastro-esophageal reflux disease without esophagitis Plan: Continue current does of pantoprazole, continue famotidine. Patient was instructed to avoid dietary triggers in late night snacking. Staying upright for minimum 3 hours after meals discussed with patient. Will consider decreasing the pantoprazole next visit (2) Chronic idiopathic constipation: Code(s): K59.04 - Chronic idiopathic constipation Plan: Continue current dose of Linzess. Patient was also encouraged to increase fluid intake and activity to promote better bowel motility. I will see patient in 6 months, sooner on as needed basis. Patient is agreeable to this plan and verbalizes understanding of instructions. She was given the opportunity to ask questions and all questions answered. Thank you for allowing me to participate in her care Medications: Refilled linaclotide (Linzess) 290 mcg PO QAM 90 caps 4RF K59.00 - Constipation, unspecified famotidine (Pepcid) 20 mg PO BEDTIME 90 tabs 3RF K21.9 - Gastro-esophageal reflux disease without esophagitis pantoprazole libby un comprimido media hora antes del desayuno 40 mg PO DAILY 90 tabs 2RF K21.9 - Gastro-esophageal reflux disease without esophagitis Discontinued methylcellulose (laxative) (Citrucel) libby todas las mananas con un vaso de agua lleno Discontinued Reason: Patient no longer taking 500 mg PO DAILY 90 tabs 2RF K59.00 - Constipation, unspecified Coding Level of Care Code Est Pt Level 3 (90343) Diagnoses Gastroesophageal reflux disease, unspecified whether esophagitis present K21.9 Esophagitis presence: esophagitis presence not specified Chronic idiopathic constipation K59.04 Time Spent (min) 25 Comment 15 minutes spent with patient and additional 10 minutes spent reviewing her records
[2023-06-12 10:01] VITALS: BP 150/73; PULSE 64; BMI 27.3
== END 2023-06-12 10:21 | disposition home or self-care (01) ==
PROVIDERS: PCP Registered Nurse; Visit Provider Nurse Practitioner Family
DX: K21.9 Gastro-esophageal reflux disease without esophagitis (principal); K59.04 Chronic idiopathic constipation
CPT/HCPCS: 99213

== ENCOUNTER 2023-06-12 11:00 | Outpatient (REF) | payer MEDICARE, SELFPAY | END 2023-06-12 11:01 | disposition home or self-care (01) | LOC: HO.MDS 11:00 | PROVIDERS: Visit Provider Internal Medicine Endocrinology, Diabetes & Metabolism | DX: M81.0 Age-related osteoporosis without current pathological fracture (principal); K21.9 Gastro-esophageal reflux disease without esophagitis; K59.04 Chronic idiopathic constipation | CPT/HCPCS: 96365; 99212; J3489 ==

== ENCOUNTER 2023-06-19 07:40 | Outpatient (REF) | payer MEDICARE, SELFPAY ==
--- NOTE | ~2023-06-19 | CT_ITS ---
EXAMINATION: CT HEAD WITHOUT CONTRAST CLINICAL INFORMATION: Headaches COMPARISON: None available. TECHNIQUE: Contiguous axial imaging was performed from the skull base to vertex without intravenous administration of contrast. This CT examination was performed using dose optimization techniques as appropriate, variously including the following: *Automated exposure control *Adjustment of mA and/or kV according to patient size (this includes techniques or standardized protocols for targeted exams where dose is matched to indication/reason for exam; i.e. extremities or head) *Use of iterative reconstruction technique DLP: 747 mGy-cm FINDINGS: The ventricles and sulci are normal in size and configuration. No acute hemorrhage, mass effect or shift is evident. Pinzon-white differentiation is maintained. In the right frontal region, there is an extra-axial, smoothly marginated 26 x 19 mm extra-axial mass, with mild endosteal scalloping. There is no underlying parenchymal brain edema. In the posterior fossa, the brainstem, cerebellum and fourth ventricle image normally. Both orbits are aphakic. The paranasal sinuses and mastoid air cells are well pneumatized and clear. CT/CT head/brain wo IV con IMPRESSION: 1. Right frontal extraaxial partially calcified 26 x 19 mm mass likely reflects an incidental meningioma. 2. No acute hemorrhage, territorial infarct, shift or other acute intracranial pathology.
== END 2023-06-19 07:41 | disposition home or self-care (01) ==
LOC: HO.CT 07:40
PROVIDERS: PCP Registered Nurse; Visit Provider Registered Nurse
DX: R51.9 Headache, unspecified (principal)
CPT/HCPCS: 70450

== ENCOUNTER 2023-06-21 11:47 | Emergency (ER) | payer MEDICARE, SELFPAY ==
--- NOTE | ~2023-06-21 | XR_ITS ---
EXAMINATION: XR CHEST CLINICAL INFORMATION: Coughing COMPARISON: Chest radiograph 12/02/2022 TECHNIQUE: Frontal view of the chest was obtained. FINDINGS: Once again seen is mild elevation of the right hemidiaphragm. No other significant abnormality is noted involving the heart, lungs, mediastinum, bony thorax or soft tissues. XR/XR chest 1V IMPRESSION: No acute intrathoracic disease.
[2023-06-21 11:55] VITALS: BP 138/81; PULSE 18; RESP 18; TEMP 36.1; O2SAT 99; BMI 27.3
--- NOTE | 2023-06-21 12:00 | ED.GENADULT ---
HPI - General Adult General Chief complaint: Upper Respiratory Symptoms Stated complaint: SOB/ asthma Time Seen by Provider: 06/21/23 12:29 Source: patient Mode of arrival: ambulatory Limitations: no limitations History of Present Illness HPI narrative: 72 y o female PMH asthma presenting for evaluation of URI symptoms cough, congestion, myalgias, fatigue x2 days. Reports she has 2 granddaughters at home sick with the flu. States she has been experiencing some shortness of breath with cough as well, c/o subjective wheezing and need for increased inhaler use at home. Uses 2L oxygen nightly at home. Currently speaking in full sentences. Denies any chest pain, palpitations, dizziness, nausea, vomiting, diarrhea, numbness and tingling, fevers and chils Related Data Home Medications Medication Instructions Recorded Confirmed acetaminophen 500 mg tablet 1,000 mg PO Q6H PRN pain 10/27/20 05/21/23 albuterol sulfate 2.5 mg/3 mL mg inhalation Q6H PRN asthma 10/27/20 05/21/23 (0.083 %) solution for nebulization atorvastatin 40 mg tablet 40 mg PO DAILY 10/27/20 05/21/23 budesonide-formoterol HFA 160 2 puff PO BID 10/27/20 05/21/23 mcg-4.5 mcg/actuation aerosol inhaler cetirizine 10 mg tablet 10 mg PO DAILY PRN Allergic 10/27/20 05/21/23 Symptoms citalopram 10 mg tablet 10 mg PO DAILY 10/27/20 05/21/23 clobetasol 0.05 % topical ointment g topical DAILY 10/27/20 05/21/23 mirtazapine 30 mg tablet 30 mg PO BEDTIME 10/27/20 05/21/23 montelukast 10 mg tablet 10 mg PO DAILY 10/27/20 05/21/23 multivitamin 1 tab PO DAILY 10/27/20 05/21/23 zolpidem 10 mg tablet 10 mg PO BEDTIME PRN Sleep 10/27/20 05/21/23 ascorbate calcium (vitamin C) 500 1 g PO Q6H 03/28/22 05/21/23 mg tablet lorazepam 0.5 mg tablet 0.25 - 0.5 mg PO 05/21/23 05/21/23 amlodipine 5 mg tablet 2.5 mg PO DAILY 06/12/23 cyanocobalamin (vitamin B-12) 1,000 mcg PO QAM 06/12/23 1,000 mcg tablet Previous Rx's Medication Instructions Recorded calcium citrate 500 mg (2 x 250 mg calcium) PO BID 03/03/21 90 days #360 tabs cyclobenzaprine 10 mg tablet 10 mg PO TID PRN muscle spasm #14 11/15/21 tabs albuterol sulfate 2.5 mg/0.5 mL 5 mg inhalation Q4H PRN shortness 12/02/22 solution for nebulization of breath or wheezing #30 ea levothyroxine 50 mcg tablet 50 mcg PO DAILY 90 days #90 tabs 03/23/23 famotidine 20 mg tablet (Pepcid) 20 mg PO BEDTIME #90 tabs 06/12/23 linaclotide 290 mcg capsule 290 mcg PO QAM #90 caps 06/12/23 (Linzess) pantoprazole 40 mg tablet,delayed 40 mg PO DAILY #90 tabs 06/12/23 release meloxicam 15 mg tablet 15 mg PO DAILY #90 tabs 06/13/23 albuterol sulfate 90 mcg/actuation 2 inh inhalation Q4-6H PRN 06/21/23 breath activated powder inhaler shortness of breath or wheezing #1 ea prednisone 20 mg tablet 40 mg (2 x 20 mg) PO DAILY 5 days 06/21/23 #10 tabs Allergies Allergy/AdvReac Type Severity Reaction Status Date / Time morphine [MORPHINE] Allergy Unknown RASH Verified 06/21/23 11:55 Review of Systems Review of Systems: Constitutional : No Weight loss, No Fever, +Chills, +Fatigue, No Malaise ENT/Mouth : + sore throat, No Rhinorrhea, +congestion Eyes: No Eye Pain, No Swelling, No Redness Cardiovascular : No Chest Pain, No SOB, No Dyspnea on Exertion, No Orthopnea, No Edema, No Palpitations Respiratory : + Cough, No Sputum, + Wheezing Gastrointestinal : No Nausea, No Vomiting, No Diarrhea, No Constipation, No abdominal Pain, No Hematochezia, No Melena Genitourinary : No Dysuria, No Urinary Frequency, No Hematuria Musculoskeletal : No joint pain, +Myalgias, No Joint Swelling Skin : No Skin Lesions, No rash Neuro : No Weakness, No Numbness, No Dizziness, No Headache Psych : No Anxiety/Panic, No Depression All other systems reviewed and are negative Yes all other systems are reviewed and are negative [facility] Past Medical History Attestation statement: The following information was validated with the patient. Source: old records reviewed and nursing notes reviewed Medical History Kidney stone Back pain Arthritis HLD (hyperlipidemia) Hypothyroidism Diabetes Hypertension Asthma Hyperthyroidism Vitamin D deficiency Primary hyperparathyroidism Postablative hypothyroidism Surgical History Hx of colonoscopy History of esophagogastroduodenoscopy (EGD) Hx of endoscopy S/P subtotal parathyroidectomy History of carpal tunnel release of both wrists Hx of cataract removal with insertion of prosthetic lens Hx of lithotripsy Hx of cholecystectomy Hx of hysterectomy Family History Family History Father No problems noted. Mother No problems noted. Social History Social History Household Members: Family Are you a primary direct care counselor to a significant other at home: No Do you presently have visiting nurse or other home services: No Alcohol intake: never Patient Tobacco Use Status: Never used Tobacco Advance Directives: No Advance Directives Information Provided: Yes Physical Exam ED Vital Signs: Vital Signs - 24 hr 06/21/23 11:55 06/21/23 12:41 Temperature 97.0 F Pulse Rate 18 L 81 Respiratory Rate 18 18 Blood Pressure 138/81 Pulse Oximetry 99 Oxygen Delivery Method Room Air BMI result Body Mass Index 27.3 vss Appearance: Alert.? Oriented X3.? No acute distress.? Head: Normocephalic, atraumatic, no step-offs or deformities Eyes: Pupils equal, round and reactive to light.? ENT: Pharynx normal.??External ears normal. No pain with manipulation of external ears bilaterally. No mastoid tenderness. Neck: Normal inspection.? Neck supple.? CVS: Normal heart rate and rhythm.? Pulses normal.? Respiratory: No respiratory distress.?Mild expiratory wheezing heard best in the bases, otherwise vesicular no rhonchi or rales. No stridor. Equal chest rise and fall, no tracheal deviation, no tachypnea. Abdomen: Soft and nontender.? Skin: Skin warm and dry.? Normal skin color.? Normal skin turgor.? Extremities: No lower extremity edema.? No calf ttp. 5/5 strength to bilateral upper and lower extremities Neuro: Oriented X 3.? No motor deficit.? No sensory deficit. CN 2-12 intact Course Course Course Narrative: RME: 72 yold female with pmh of asthma presents to the ED for coughing, bodyaches, chills, and nasal congestion. she states her grandsons are also sick. Patient denies any leg swelling, calf pain, shortness or breath, or pleurisy. SARS, chest xray, and ED bronchodilator protocol ordered. Wheezing on exam Reevaluation(s) Reevaluation #1: upon reevaluation patient no longer has wheezing. Flu/coivd/rsv negative. X-ray unremarkable. Patient states she is feeling much better. Will discharge her home with albuterol, prednisone. Educated patient on diagnosis and treatment plan, answered all question, patient verbalizes understanding. At this time patient will be discharged home, advised to return with new or worsening symptoms. Educated on worrisome signs and symptoms and when to return. At this time I feel comfortable discharge home. Time: 14:47 Medications Administered Discontinued Medications Generic Name Dose Route Start Last Admin Trade Name Darioq PRN Reason Stop Dose Admin Albuterol Sulfate 2.5 mg/ 5 mg 06/21/23 12:36 06/21/23 12:38 Albuterol Sulfate 2.5 mg INHALE 06/21/23 12:37 5 mg ONCE ONE Administration Medical Decision Making Medical Decision Making [facility] Narrative: 72 y o female PMH asthma presenting for evaluation of URI sxs x2 days PE significant for mild expiratory wheezing heard best in the bases, otherwise vesicular no rhonchi or rales. No stridor. Equal chest rise and fall, no tracheal deviation, no tachypnea. Possible asthma excerbation vs viral illness vs COVID vs influenza. I am not concerned for a pneumothorax or PE, equal chest rise and fall, in no acute distress, overall well-appearing with no HRT. Unlikely pna, acs. Plan - Viral testing, CXR Differential Diagnosis Differential Diagnoses: The differential diagnosis associated with the presentation includes Possible asthma excerbation vs viral illness vs COVID vs influenza. I am not concerned for a pneumothorax or PE, equal chest rise and fall, in no acute distress, overall well-appearing with no HRT. Unlikely pna, acs. Admission/Observation Consideration of admission/observation: Escalation of care including admission/observation considered Lab Data MDM Lab Attestation statement: I reviewed the patient's lab results. Labs: Lab Results 06/21/23 Range/Units 12:13 Influenza Type A (PCR) NEGATIVE (Negative) Influenza Type B (PCR) NEGATIVE (Negative) RSV RNA Qual (PCR) NEGATIVE (Negative) SARS-CoV-2 RNA (RT-PCR) NEGATIVE (Negative) Independent Interpretation I performed an independent interpretation of an: Plain X-Ray ( XR/XR chest 1V IMPRESSION: No acute intrathoracic disease.) Radiology Impression Discussion of test interpretation with radiology: I have reviewed the radiologist's reading. Discharge Plan Discharge Clinical Impression: Viral infection, Wheezing Patient Disposition: Home, Self-Care Instructions: Viral Syndrome (ED), Wheezing (ED) Additional Instructions: Take your medications as prescribed. If you were prescribed antibiotics today, it is important that you take your medication to their entirety, do not skip any doses, do not finish them early. Follow-up with your primary care provider this week. Return to the emergency department with new or worsening symptoms. Such as fevers, chills, chest pain, shortness of breath, nausea, vomiting, dizziness, headache, vision changes, lethargy In case of emergency call 911 XR/XR chest 1V IMPRESSION: No acute intrathoracic disease. Prescriptions: New prednisone 20 mg tablet 40 mg PO DAILY 5 Days Qty: 10 0RF albuterol sulfate 90 mcg/actuation aerosol powdr breath activated 2 inh inhalation Q4-6H PRN (Reason: shortness of breath or wheezing) Qty: 1 0RF No Action levothyroxine 50 mcg tablet 50 mcg PO DAILY 90 Days Qty: 90 1RF Rx Instructions: Dose decreased to 50 mcg please discontinue prior prescription of 75 mcg meloxicam 15 mg tablet 15 mg PO DAILY Qty: 90 0RF cyclobenzaprine 10 mg tablet 10 mg PO TID PRN (Reason: muscle spasm) Qty: 14 0RF albuterol sulfate 2.5 mg/0.5 mL solution for nebulization 5 mg inhalation Q4H PRN (Reason: shortness of breath or wheezing) Qty: 30 0RF zolpidem 10 mg tablet 10 mg PO BEDTIME PRN (Reason: Sleep) mirtazapine 30 mg tablet 30 mg PO BEDTIME citalopram 10 mg tablet 10 mg PO DAILY albuterol sulfate 2.5 mg /3 mL (0.083 %) solution for nebulization inhalation Q6H PRN (Reason: asthma) atorvastatin 40 mg tablet 40 mg PO DAILY montelukast 10 mg tablet 10 mg PO DAILY cetirizine 10 mg tablet 10 mg PO DAILY PRN (Reason: Allergic Symptoms) multivitamin Tablet 1 tab PO DAILY acetaminophen 500 mg tablet 1,000 mg PO Q6H PRN (Reason: pain) budesonide-formoterol 160-4.5 mcg/actuation HFA aerosol inhaler 2 puff PO BID clobetasol 0.05 % ointment topical DAILY calcium citrate 250 mg calcium tablet 500 mg PO BID 90 Days Qty: 360 1RF lorazepam 0.5 mg tablet 0.25 - 0.5 mg PO amlodipine 5 mg tablet 2.5 mg PO DAILY ascorbate calcium (vitamin C) 500 mg tablet 1 g PO Q6H cyanocobalamin (vitamin B-12) 1,000 mcg tablet 1,000 mcg PO QAM famotidine [Pepcid] 20 mg tablet 20 mg PO BEDTIME Qty: 90 3RF Linzess 290 mcg capsule 290 mcg PO QAM Qty: 90 4RF pantoprazole 40 mg tablet,delayed release (DR/EC) 40 mg PO DAILY Qty: 90 2RF Rx Instructions: libby un comprimido media hora antes del desayuno Referrals: Pat Juan, IT SYSTEMS ADMINISTRATOR [Primary Care Provider] - 2 days Stand Alone Forms: Work/School Release Interventions: ED Discharge Assessment Last Done: 06/21/23 15:08 Discharge Date/Time: 06/21/23 15:13
[2023-06-21] MEDS: Albuterol Sulfate 2.5 MG, Albuterol Sulfate (0.083%) 2.5 MG 5 MG INHALE (12:38)
[2023-06-21 12:41] VITALS: PULSE 81; RESP 18; O2SAT 95
[2023-06-21 13:04] LABS: Influenza A PCR NEGATIVE (Negative); Influenza B PCR NEGATIVE (Negative); Resp Syncy Virus RNA Qual PCR NEGATIVE (Negative); SARS COV2 PCR INHOUSE NEGATIVE (Negative)
--- NOTE | 2023-06-21 13:19 | ED.GENADULT ---
HPI - General Adult General Chief complaint: Upper Respiratory Symptoms Stated complaint: SOB/ asthma Time Seen by Provider: 06/21/23 12:29 Source: patient Mode of arrival: ambulatory Limitations: no limitations History of Present Illness HPI narrative: 72 y o female PMH asthma presenting for evaluation of URI symptoms cough, congestion, myalgias, fatigue x2 days. Reports she has 2 granddaughters at home sick with the flu. States she has been experiencing some shortness of breath as well, c/o subjective wheezing and need for increased inhaler use at home. Uses 2L oxygen nightly at home. Currently speaking in full sentences. Denies any chest pain, palpitations, dizziness, nausea, vomiting, diarrhea, numbness and tingling. Related Data Home Medications Medication Instructions Recorded Confirmed acetaminophen 500 mg tablet 1,000 mg PO Q6H PRN pain 10/27/20 05/21/23 albuterol sulfate 2.5 mg/3 mL mg inhalation Q6H PRN asthma 10/27/20 05/21/23 (0.083 %) solution for nebulization atorvastatin 40 mg tablet 40 mg PO DAILY 10/27/20 05/21/23 budesonide-formoterol HFA 160 2 puff PO BID 10/27/20 05/21/23 mcg-4.5 mcg/actuation aerosol inhaler cetirizine 10 mg tablet 10 mg PO DAILY PRN Allergic 10/27/20 05/21/23 Symptoms citalopram 10 mg tablet 10 mg PO DAILY 10/27/20 05/21/23 clobetasol 0.05 % topical ointment g topical DAILY 10/27/20 05/21/23 mirtazapine 30 mg tablet 30 mg PO BEDTIME 10/27/20 05/21/23 montelukast 10 mg tablet 10 mg PO DAILY 10/27/20 05/21/23 multivitamin 1 tab PO DAILY 10/27/20 05/21/23 zolpidem 10 mg tablet 10 mg PO BEDTIME PRN Sleep 10/27/20 05/21/23 ascorbate calcium (vitamin C) 500 1 g PO Q6H 03/28/22 05/21/23 mg tablet lorazepam 0.5 mg tablet 0.25 - 0.5 mg PO 05/21/23 05/21/23 amlodipine 5 mg tablet 2.5 mg PO DAILY 06/12/23 cyanocobalamin (vitamin B-12) 1,000 mcg PO QAM 06/12/23 1,000 mcg tablet Previous Rx's Medication Instructions Recorded calcium citrate 500 mg (2 x 250 mg calcium) PO BID 03/03/21 90 days #360 tabs cyclobenzaprine 10 mg tablet 10 mg PO TID PRN muscle spasm #14 11/15/21 tabs albuterol sulfate 2.5 mg/0.5 mL 5 mg inhalation Q4H PRN shortness 12/02/22 solution for nebulization of breath or wheezing #30 ea levothyroxine 50 mcg tablet 50 mcg PO DAILY 90 days #90 tabs 03/23/23 famotidine 20 mg tablet (Pepcid) 20 mg PO BEDTIME #90 tabs 06/12/23 linaclotide 290 mcg capsule 290 mcg PO QAM #90 caps 06/12/23 (Linzess) pantoprazole 40 mg tablet,delayed 40 mg PO DAILY #90 tabs 06/12/23 release meloxicam 15 mg tablet 15 mg PO DAILY #90 tabs 06/13/23 Allergies Allergy/AdvReac Type Severity Reaction Status Date / Time morphine [MORPHINE] Allergy Unknown RASH Verified 06/21/23 11:55 Review of Systems Review of Systems: Constitutional : No Weight loss, No Fever, +Chills, +Fatigue, No Malaise ENT/Mouth : + sore throat, No Rhinorrhea, +congestion Eyes: No Eye Pain, No Swelling, No Redness Cardiovascular : No Chest Pain, No SOB, No Dyspnea on Exertion, No Orthopnea, No Edema, No Palpitations Respiratory : + Cough, No Sputum, + Wheezing Gastrointestinal : No Nausea, No Vomiting, No Diarrhea, No Constipation, No abdominal Pain, No Hematochezia, No Melena Genitourinary : No Dysuria, No Urinary Frequency, No Hematuria Musculoskeletal : No joint pain, +Myalgias, No Joint Swelling Skin : No Skin Lesions, No rash Neuro : No Weakness, No Numbness, No Dizziness, No Headache Psych : No Anxiety/Panic, No Depression All other systems reviewed and are negative [facility] Past Medical History Medical History Kidney stone Back pain Arthritis HLD (hyperlipidemia) Hypothyroidism Diabetes Hypertension Asthma Hyperthyroidism Vitamin D deficiency Primary hyperparathyroidism Postablative hypothyroidism Surgical History Hx of colonoscopy History of esophagogastroduodenoscopy (EGD) Hx of endoscopy S/P subtotal parathyroidectomy History of carpal tunnel release of both wrists Hx of cataract removal with insertion of prosthetic lens Hx of lithotripsy Hx of cholecystectomy Hx of hysterectomy Family History Family History Father No problems noted. Mother No problems noted. Social History Social History Household Members: Family Are you a primary childcare center administrator to a significant other at home: No Do you presently have visiting nurse or other home services: No Alcohol intake: never Patient Tobacco Use Status: Never used Tobacco Advance Directives: Yes Advance Directives Information Provided: Yes Advance Directives on File: No Physical Exam ED Vital Signs: Vital Signs - 24 hr 06/21/23 11:55 06/21/23 12:41 Temperature 97.0 F Pulse Rate 18 L 81 Respiratory Rate 18 18 Blood Pressure 138/81 Pulse Oximetry 99 Oxygen Delivery Method Room Air BMI result Body Mass Index 27.3 VSS Appearance: Alert.? Oriented X3.? No acute distress.? Head: Normocephalic, atraumatic, no step-offs or deformities Eyes: Pupils equal, round and reactive to light.? ENT: Pharynx normal.??External ears normal. No pain with manipulation of external ears bilaterally. No mastoid tenderness. Neck: Normal inspection.? Neck supple.? CVS: Normal heart rate and rhythm.? Pulses normal.? Respiratory: No respiratory distress.?Mild expiratory wheezing heard best in the bases, otherwise vesicular no rhonchi or rales. No stridor. Equal chest rise and fall, no tracheal deviation, no tachypnea. Abdomen: Soft and nontender.? Skin: Skin warm and dry.? Normal skin color.? Normal skin turgor.? Extremities: No lower extremity edema.? No calf ttp. 5/5 strength to bilateral upper and lower extremities Neuro: Oriented X 3.? No motor deficit.? No sensory deficit. CN 2-12 intact Medications Administered Discontinued Medications Generic Name Dose Route Start Last Admin Trade Name Freq PRN Reason Stop Dose Admin Albuterol Sulfate 2.5 mg/ 5 mg 06/21/23 12:36 06/21/23 12:38 Albuterol Sulfate 2.5 mg INHALE 06/21/23 12:37 5 mg ONCE ONE Administration Medical Decision Making Medical Decision Making [facility] Narrative: 72 y o female PMH asthma presenting for evaluation of URI sxs x2 days PE significant for mild expiratory wheezing heard best in the bases, otherwise vesicular no rhonchi or rales. No stridor. Equal chest rise and fall, no tracheal deviation, no tachypnea. Possible asthma excerbation vs viral illness vs COVID vs influenza. I am not concerned for a pneumothorax or PE, equal chest rise and fall, in no acute distress, overall well-appearing with no HRT. Plan - Viral testing, CXR Differential Diagnosis Differential Diagnoses: The differential diagnosis associated with the presentation includes Possible asthma excerbation vs viral illness vs COVID vs influenza. I am not concerned for a pneumothorax or PE, equal chest rise and fall, in no acute distress, overall well-appearing with no HRT. Admission/Observation Consideration of admission/observation: Escalation of care including admission/observation considered Unlikely Lab Data [facility] Lab Attestation statement: I reviewed the patient's lab results. Labs: Lab Results 06/21/23 Range/Units 12:13 Influenza Type A (PCR) NEGATIVE (Negative) Influenza Type B (PCR) NEGATIVE (Negative) RSV RNA Qual (PCR) NEGATIVE (Negative) SARS-CoV-2 RNA (RT-PCR) NEGATIVE (Negative) Independent Interpretation I performed an independent interpretation of an: Plain X-Ray Radiology Impression Discussion of test interpretation with radiology: I have reviewed the radiologist's reading. External Record Review External record reviewed: Inpatient record Discharge Plan Discharge Prescriptions: No Action levothyroxine 50 mcg tablet 50 mcg PO DAILY 90 Days Qty: 90 1RF Rx Instructions: Dose decreased to 50 mcg please discontinue prior prescription of 75 mcg meloxicam 15 mg tablet 15 mg PO DAILY Qty: 90 0RF cyclobenzaprine 10 mg tablet 10 mg PO TID PRN (Reason: muscle spasm) Qty: 14 0RF albuterol sulfate 2.5 mg/0.5 mL solution for nebulization 5 mg inhalation Q4H PRN (Reason: shortness of breath or wheezing) Qty: 30 0RF zolpidem 10 mg tablet 10 mg PO BEDTIME PRN (Reason: Sleep) mirtazapine 30 mg tablet 30 mg PO BEDTIME citalopram 10 mg tablet 10 mg PO DAILY albuterol sulfate 2.5 mg /3 mL (0.083 %) solution for nebulization inhalation Q6H PRN (Reason: asthma) atorvastatin 40 mg tablet 40 mg PO DAILY montelukast 10 mg tablet 10 mg PO DAILY cetirizine 10 mg tablet 10 mg PO DAILY PRN (Reason: Allergic Symptoms) multivitamin Tablet 1 tab PO DAILY acetaminophen 500 mg tablet 1,000 mg PO Q6H PRN (Reason: pain) budesonide-formoterol 160-4.5 mcg/actuation HFA aerosol inhaler 2 puff PO BID clobetasol 0.05 % ointment topical DAILY calcium citrate 250 mg calcium tablet 500 mg PO BID 90 Days Qty: 360 1RF lorazepam 0.5 mg tablet 0.25 - 0.5 mg PO amlodipine 5 mg tablet 2.5 mg PO DAILY ascorbate calcium (vitamin C) 500 mg tablet 1 g PO Q6H cyanocobalamin (vitamin B-12) 1,000 mcg tablet 1,000 mcg PO QAM famotidine [Pepcid] 20 mg tablet 20 mg PO BEDTIME Qty: 90 3RF Linzess 290 mcg capsule 290 mcg PO QAM Qty: 90 4RF pantoprazole 40 mg tablet,delayed release (DR/EC) 40 mg PO DAILY Qty: 90 2RF Rx Instructions: libby un comprimido media hora antes del desayuno
== END 2023-06-21 15:13 | disposition home or self-care (01) ==
PROVIDERS: Physician Assistant; Emergency Provider Emergency Medicine; PCP Registered Nurse
DX: B34.9 Viral infection, unspecified (principal); R06.2 Wheezing; Z20.822 Contact with and (suspected) exposure to COVID-19; R06.02 Shortness of breath; Z20.828 Contact with and (suspected) exposure to other viral communicable diseases; E11.9 Type 2 diabetes mellitus without complications; I10 Essential (primary) hypertension; E78.5 Hyperlipidemia, unspecified; Z79.899 Other long term (current) drug therapy
CPT/HCPCS: 0241U; 71045; 94640; 99284

== ENCOUNTER 2023-06-24 17:11 | Emergency (ER) | payer MEDICARE, SELFPAY ==
[2023-06-24] VITALS (7 sets, daily range): BP systolic 139–140; BP diastolic 75–89; PULSE 66–88; RESP 17–18; TEMP 36.7–37.2; O2SAT 90–96; BMI 29.2
--- NOTE | ~2023-06-24 | XR_ITS ---
EXAMINATION: XR CHEST CLINICAL INFORMATION: Productive cough COMPARISON: Chest radiograph from 06/21/2023 TECHNIQUE: Frontal view of the chest was obtained. FINDINGS: Elevation of the right hemidiaphragm. Stable prominent of bronchovascular markings. No pneumothorax. Trachea is midline. Cardiac mediastinal silhouette is not enlarged. Aorta demonstrates atherosclerotic calcifications. No large pleural effusion. Degenerative changes of the thoracolumbar spine with dextrocurvature of the midthoracic spine. Soft tissues are unremarkable. XR/XR chest 1V IMPRESSION: 1. Elevation of the right hemidiaphragm. 2. Stable prominent of bronchovascular markings.
--- NOTE | 2023-06-24 17:35 | ED.SOB ---
HPI - SOB/Dyspnea General Chief Complaint: Upper Respiratory Symptoms Stated Complaint: coughing/sneezing blood, Time Seen by Provider: 06/24/23 18:06 Source: patient, family and old records reviewed Mode of arrival: ambulatory Limitations: no limitations History of Present Illness HPI Narrative: 72 yo female PMH of hypothyroidism, asthma, HTN, just seen here on 06/21 dx with viral infection started on prednisone has one more day of therapy. She was exposed to a sick grandkid which started all of this. She feels her coughing and runny nose and sinus headache is not better. She is having chills. Today she blew her nose very hard and saw blood x 3 no clots. She then coughed a saw streaks of blood as well. She is not on thinners. MD elicited complaint: cough and asthma attack Pertinent past history: asthma Onset (ago): day(s) (5) Context: recent illness Timing: intermittent Severity: moderate Exacerbating factors: coughing Relieving factors: rest and bronchodilators Known history of: asthma Associated symptoms: cough, wheezing, sputum production and other (chills scant hemoptysis, sinus pressure and congestions) Treatment prior to arrival: other (has been on prednisone burst) Related Data Home Medications Medication Instructions Recorded Confirmed acetaminophen 500 mg tablet 1,000 mg PO Q6H PRN pain 10/27/20 05/21/23 albuterol sulfate 2.5 mg/3 mL mg inhalation Q6H PRN asthma 10/27/20 05/21/23 (0.083 %) solution for nebulization atorvastatin 40 mg tablet 40 mg PO DAILY 10/27/20 05/21/23 budesonide-formoterol HFA 160 2 puff PO BID 10/27/20 05/21/23 mcg-4.5 mcg/actuation aerosol inhaler cetirizine 10 mg tablet 10 mg PO DAILY PRN Allergic 10/27/20 05/21/23 Symptoms citalopram 10 mg tablet 10 mg PO DAILY 10/27/20 05/21/23 clobetasol 0.05 % topical ointment g topical DAILY 10/27/20 05/21/23 mirtazapine 30 mg tablet 30 mg PO BEDTIME 10/27/20 05/21/23 montelukast 10 mg tablet 10 mg PO DAILY 10/27/20 05/21/23 multivitamin 1 tab PO DAILY 10/27/20 05/21/23 zolpidem 10 mg tablet 10 mg PO BEDTIME PRN Sleep 10/27/20 05/21/23 ascorbate calcium (vitamin C) 500 1 g PO Q6H 03/28/22 05/21/23 mg tablet lorazepam 0.5 mg tablet 0.25 - 0.5 mg PO 05/21/23 05/21/23 amlodipine 5 mg tablet 2.5 mg PO DAILY 06/12/23 cyanocobalamin (vitamin B-12) 1,000 mcg PO QAM 06/12/23 1,000 mcg tablet Previous Rx's Medication Instructions Recorded calcium citrate 500 mg (2 x 250 mg calcium) PO BID 03/03/21 90 days #360 tabs cyclobenzaprine 10 mg tablet 10 mg PO TID PRN muscle spasm #14 11/15/21 tabs albuterol sulfate 2.5 mg/0.5 mL 5 mg inhalation Q4H PRN shortness 12/02/22 solution for nebulization of breath or wheezing #30 ea levothyroxine 50 mcg tablet 50 mcg PO DAILY 90 days #90 tabs 03/23/23 famotidine 20 mg tablet (Pepcid) 20 mg PO BEDTIME #90 tabs 06/12/23 linaclotide 290 mcg capsule 290 mcg PO QAM #90 caps 06/12/23 (Linzess) pantoprazole 40 mg tablet,delayed 40 mg PO DAILY #90 tabs 06/12/23 release meloxicam 15 mg tablet 15 mg PO DAILY #90 tabs 06/13/23 albuterol sulfate 90 mcg/actuation 2 inh inhalation Q4-6H PRN 06/21/23 breath activated powder inhaler shortness of breath or wheezing #1 ea prednisone 20 mg tablet 40 mg (2 x 20 mg) PO DAILY 5 days 06/21/23 #10 tabs azithromycin 250 mg tablet 250 mg PO DAILY 4 days #4 tabs 06/24/23 benzonatate 100 mg capsule 100 mg PO TID PRN cough #20 caps 06/24/23 Allergies Allergy/AdvReac Type Severity Reaction Status Date / Time morphine [MORPHINE] Allergy Unknown RASH Verified 06/21/23 11:55 Review of Systems Review of Systems: Constitutional : No Fever, pos Chills ENT/Mouth : No Hoarseness, No sore throat, pos Rhinorrhea, pos sinus pressure Eyes: No Redness, No Discharge, No Vision Changes Cardiovascular : No Chest Pain, positive SOB, positive Dyspnea on Exertion, No Edema Respiratory : positive Cough, pos Sputum, positive Wheezing, Gastrointestinal : No Nausea, No Vomiting, No Diarrhea, No abdominal Pain Genitourinary : No Dysuria, No Hematuria Musculoskeletal : No joint pain, No Myalgias Skin : No rash Neuro : No Weakness, No Numbness, No Headache Psych : No anxiety, depression All other systems reviewed and are negative [facility] Past Medical History Attestation statement: The following information was validated with the patient. Source: old records reviewed Medical History Kidney stone Back pain Arthritis HLD (hyperlipidemia) Hypothyroidism Diabetes Hypertension Asthma Hyperthyroidism Vitamin D deficiency Primary hyperparathyroidism Postablative hypothyroidism Surgical History Hx of colonoscopy History of esophagogastroduodenoscopy (EGD) Hx of endoscopy S/P subtotal parathyroidectomy History of carpal tunnel release of both wrists Hx of cataract removal with insertion of prosthetic lens Hx of lithotripsy Hx of cholecystectomy Hx of hysterectomy Family History Family History Father No problems noted. Mother No problems noted. Social History Social History Household Members: Family Are you a primary rn patient care to a significant other at home: No Do you presently have visiting nurse or other home services: No Alcohol intake: never Patient Tobacco Use Status: Never used Tobacco Smoked in Last 30 Days: No Use of substances other than those prescribed or required for medical reasons: No Advance Directives: No Advance Directives Information Provided: Yes Physical Exam Vital Signs: Vital Signs: Last Vital Signs Temp 98.9 F 06/24/23 19:07 Pulse 66 06/24/23 19:07 Resp 18 06/24/23 19:07 BP 140/75 H 06/24/23 19:07 Pulse Ox 93 06/24/23 19:31 O2 Del Method Room Air 06/24/23 19:31 BMI result Body Mass Index 29.2 Appearance: Alert. Oriented X3. No acute distress. Eyes: Pupils equal, round and reactive to light. ENT: Pharynx normal. Neck: Normal inspection. Neck supple. CVS: Normal heart rate and rhythm. Pulses normal. Respiratory: No respiratory distress. Breath sounds slightly diminished Abdomen: Soft and nontender. Skin: Skin warm and dry. Normal skin color. Normal skin turgor. Extremities: No lower extremity edema. No calf ttp Neuro: Oriented X 3. No motor deficit. No sensory deficit. Course Course Course Narrative: RME - 72 yo female with history of HTN, asthma, HLD, DM with recently diagnosed viral illness here on 06/21 who presents to the ER for evaluation of ongoing SOB, productive cough of yellow phlegm and new onset bloody nasal mucus today. Shortly after had a small amount that she coughed up as well. She also reports chest tightness. SpO2 92% in triage with wheezing on exam. History not c/w true hemoptysis. Plan: bronch protocol, CXR, EKG, labs, repeat viral swab Reevaluation(s) Reevaluation #1: RECHECKED o2 SHE IS 93% ON RA AND NOT LABORED 97% on RA Medications Administered Discontinued Medications Generic Name Dose Route Start Last Admin Trade Name Freq PRN Reason Stop Dose Admin Acetaminophen 650 mg 06/24/23 18:26 06/24/23 19:04 Acetaminophen 325 Mg Tablet PO 06/24/23 18:27 650 mg ONCE ONE Administration Albuterol Sulfate 2.5 mg 06/24/23 18:16 06/24/23 18:18 Albuterol Sulfate (0.083%) 2.5 Mg/3 Ml Vial.Neb INHALE 06/24/23 18:17 2.5 mg ONCE ONE Administration Medical Decision Making Medical Decision Making [facility] Narrative: 72 yo female PMH of hypothyroidism, asthma, HTN, here with URI symptoms and asthma symptoms now with sinus pressure had nose bleed this AM resolved and afterwards scant hemoptysis she is not in resp distress no chest pain to suggets VTE - likely sinusitis vs bronchitis. I will obtain repeat labs, viral panel, CXR given treatment she still has prednisone she is not tight or wheezy I think she would benefit from oral antibiotics given asthma and duration of illness with associated chills. Differential Diagnosis Differential Diagnoses: The differential diagnosis associated with the presentation includes bronchitis, viral syndrome Admission/Observation Consideration of admission/observation: Escalation of care including admission/observation considered labs normal, work up negative at this time no resp distress stable for outpatient management Lab Data [facility] Lab Attestation statement: I reviewed the patient's lab results. 06/24/23 18:06 06/24/23 18:06 Labs: Lab Results 06/24/23 06/24/23 Range/Units 18:02 18:06 WBC 9.6 (4.8-10.8) X10*3/uL RBC 4.16 L (4.20-5.50) X10*6/uL Hgb 13.2 (12.0-16.0) g/dl Hct 40.9 (37.0-47.0) % MCV 98.3 H (80.0-98.0) fL MCH 31.7 (27.0-33.0) pg MCHC 32.3 (31.0-35.0) g/dl RDW 14.4 (11.0-16.0) % Plt Count 258 (160-400) X10*3/uL MPV 9.9 (9.4-12.3) fL Immature Gran % (Auto) 0.6 H (0.0-0.4) % Neut % (Auto) 87.4 H (45-73) % Lymph % (Auto) 9.6 L (20-40) % Power % (Auto) 2.3 (2-11) % Eos % (Auto) 0.0 (0-4) % Baso % (Auto) 0.1 (0-2) % Lymph # (Auto) 0.9 L (1.2-4.9) X10*3/uL Power # (Auto) 0.2 (0.1-1.2) X10*3/uL Eos # (Auto) 0.0 (0.0-0.4) X10*3/uL Baso # (Auto) 0.0 (0.0-0.2) X10*3/uL Abs Immat Gran (auto) 0.06 H (0.00-0.03) X10*3/uL Absolute Neuts (auto) 8.4 H (2.0-8.3) x10*3/uL Absolute Nucleated RBC 0.000 (0.0-0.012) X10*3/uL Nucleated RBC % (auto) 0.0 (0.0-0.2) /100WBC Sodium 143 (135-145) mmol/L Potassium 4.2 (3.3-5.1) mmol/L Chloride 104 (96-108) mmol/L Carbon Dioxide 28 (22-29) mmol/L Anion Gap 15 (12-20) BUN 24 H (9-16) mg/dL Creatinine 1.06 (0.5-1.4) mg/dL Estim Creat Clear Calc 35.0 Estimated GFR 51 Random Glucose 250 H (60-115) mg/dL Calcium 9.5 (8.4-10.2) mg/dL Magnesium 2.2 (1.6-2.6) mg/dL Total Bilirubin 0.3 (0.0-1.0) mg/dL Direct Bilirubin 0.1 (0.0-0.5) mg/dL AST 47 H (5-31) U/L ALT 74 H (0-31) U/L Alkaline Phosphatase 108 (39-117) U/L Troponin I High Sens < 2.7 (<3.5-17.0) ng/L B-Natriuretic Peptide 59 (<100) pg/mL Total Protein 7.6 (6.5-8.0) g/dL Albumin 4.2 (3.5-5.0) g/dL Influenza Type A (PCR) NEGATIVE (Negative) Influenza Type B (PCR) NEGATIVE (Negative) RSV RNA Qual (PCR) NEGATIVE (Negative) SARS-CoV-2 RNA (RT-PCR) NEGATIVE (Negative) Independent Interpretation I performed an independent interpretation of an: EKG and Plain X-Ray (normal ) Interpretation: Rate: 73 Rhythm: NSR [place]: left Normal P waves. Normal ILDA. Normal QRS complex. ST T wave : no DARCY, normal qTC: normal prior studies: no acute ischemia The study has been interpreted contemporaneously by me. . Radiology Impression Discussion of test interpretation with radiology: I have reviewed the radiologist's reading. Independent Historian Clinical information obtained from an independent historian. History obtained from or confirmed by: Other (daughter) External Record Review External record reviewed: Inpatient record Prescription Management I considered prescription management with: Antibiotic Discharge Plan Discharge Clinical Impression: Bronchitis Patient Disposition: Home, Self-Care Instructions: Acute Bronchitis (ED) Additional Instructions: return for worsening symptoms difficulty breathing, more bleeding, pain, no improvement or any other concerns. Regrese si los s?ntomas empeoran, dificultad para respirar, m?s sangrado, dolor, falta de mejor?a o cualquier otra inquietud. Prescriptions: New azithromycin 250 mg tablet 250 mg PO DAILY 4 Days Qty: 4 0RF Rx Instructions: start on day 2 of therapy benzonatate 100 mg capsule 100 mg PO TID PRN (Reason: cough) Qty: 20 0RF No Action levothyroxine 50 mcg tablet 50 mcg PO DAILY 90 Days Qty: 90 1RF Rx Instructions: Dose decreased to 50 mcg please discontinue prior prescription of 75 mcg meloxicam 15 mg tablet 15 mg PO DAILY Qty: 90 0RF cyclobenzaprine 10 mg tablet 10 mg PO TID PRN (Reason: muscle spasm) Qty: 14 0RF albuterol sulfate 2.5 mg/0.5 mL solution for nebulization 5 mg inhalation Q4H PRN (Reason: shortness of breath or wheezing) Qty: 30 0RF prednisone 20 mg tablet 40 mg PO DAILY 5 Days Qty: 10 0RF albuterol sulfate 90 mcg/actuation aerosol powdr breath activated 2 inh inhalation Q4-6H PRN (Reason: shortness of breath or wheezing) Qty: 1 0RF zolpidem 10 mg tablet 10 mg PO BEDTIME PRN (Reason: Sleep) mirtazapine 30 mg tablet 30 mg PO BEDTIME citalopram 10 mg tablet 10 mg PO DAILY albuterol sulfate 2.5 mg /3 mL (0.083 %) solution for nebulization inhalation Q6H PRN (Reason: asthma) atorvastatin 40 mg tablet 40 mg PO DAILY montelukast 10 mg tablet 10 mg PO DAILY cetirizine 10 mg tablet 10 mg PO DAILY PRN (Reason: Allergic Symptoms) multivitamin Tablet 1 tab PO DAILY acetaminophen 500 mg tablet 1,000 mg PO Q6H PRN (Reason: pain) budesonide-formoterol 160-4.5 mcg/actuation HFA aerosol inhaler 2 puff PO BID clobetasol 0.05 % ointment topical DAILY calcium citrate 250 mg calcium tablet 500 mg PO BID 90 Days Qty: 360 1RF lorazepam 0.5 mg tablet 0.25 - 0.5 mg PO amlodipine 5 mg tablet 2.5 mg PO DAILY ascorbate calcium (vitamin C) 500 mg tablet 1 g PO Q6H cyanocobalamin (vitamin B-12) 1,000 mcg tablet 1,000 mcg PO QAM famotidine [Pepcid] 20 mg tablet 20 mg PO BEDTIME Qty: 90 3RF Linzess 290 mcg capsule 290 mcg PO QAM Qty: 90 4RF pantoprazole 40 mg tablet,delayed release (DR/EC) 40 mg PO DAILY Qty: 90 2RF Rx Instructions: libby un comprimido media hora antes del desayuno Print Language: Citizen Of [place]
--- NOTE | 2023-06-24 17:38 | ECG_ITS ---
Test Reason : SOB ASTHMA Blood Pressure : / mmHG Vent. Rate : 073 BPM Atrial Rate : 073 BPM P-R Int : 126 ms QRS Dur : 084 ms QT Int : 410 ms P-R-T Axes : 031 -15 028 degrees QTc Int : 451 ms Normal sinus rhythm Normal ECG When compared with ECG of 02-DEC-2022 13:59, Nonspecific ST and T wave abnormality is no longer Present Referred By: Floresita Newsome Electronically Signed By:SUKI FALCON
[2023-06-24 18:10] LABS: MANUAL DIFF FLAG NO
[2023-06-24 18:12] LABS: Basophils Percent Auto 0.1 % (0-2); Hematocrit 40.9 % (37.0-47.0); Hemoglobin 13.2 g/dl (12.0-16.0); Imm Gran Abs Auto 0.06 X10*3/uL (0.00-0.03); Imm Gran Pct Auto 0.6 % (0.0-0.4); Lymphocytes Absolute Auto 0.9 X10*3/uL (1.2-4.9); Lymphocytes Percent Auto 9.6 % (20-40); Mean Corpuscular HGB Conc 32.3 g/dl (31.0-35.0); Mean Corpuscular Hemoglobin 31.7 pg (27.0-33.0); Mean Corpuscular Volume 98.3 fL (80.0-98.0); Mean Platelet Volume 9.9 fL (9.4-12.3); Monocytes Absolute Auto 0.2 X10*3/uL (0.1-1.2); Monocytes Percent Auto 2.3 % (2-11); Neutrophils Absolute Auto 8.4 x10*3/uL (2.0-8.3); Neutrophils Percent Auto 87.4 % (45-73); Platelet Count 258 X10*3/uL (160-400); Red Blood Count 4.16 X10*6/uL (4.20-5.50); Red Cell Distribution Width 14.4 % (11.0-16.0); White Blood Count 9.6 X10*3/uL (4.8-10.8)
[2023-06-24] MEDS: Albuterol Sulfate (0.083%) 2.5 MG/3 ML VIAL.NEB INHALE (18:18)
--- NOTE | 2023-06-24 18:24 | PC.NURSE ---
Pt 95% on RA, 20G IV placed LAC, labs sent, COVID/FLU/RSV swab sent. No s/sx of resp/cardiac distress.
[2023-06-24 18:27] LABS: Alanine Aminotransferase 74 U/L (0-31); Albumin Level 4.2 g/dL (3.5-5.0); Alkaline Phosphatase 108 U/L (39-117); Anion Gap 15 (12-20); Aspartate Amino Transferase 47 U/L (5-31); Bilirubin Direct 0.1 mg/dL (0.0-0.5); Bilirubin Total 0.3 mg/dL (0.0-1.0); Blood Urea Nitrogen 24 mg/dL (9-16); Calcium 9.5 mg/dL (8.4-10.2); Carbon Dioxide 28 mmol/L (22-29); Chloride 104 mmol/L (96-108); Estimated Glomerular Filt Rate 51; Glucose Random 250 mg/dL (60-115); Magnesium 2.2 mg/dL (1.6-2.6); Potassium 4.2 mmol/L (3.3-5.1); Sodium 143 mmol/L (135-145); Total Protein 7.6 g/dL (6.5-8.0)
[2023-06-24 18:31] LABS: B Type Natriuretic Peptide 59 pg/mL (<100)
[2023-06-24 18:34] LABS: Troponin-I High Sensitivity < 2.7 ng/L (<3.5-17.0)
[2023-06-24 18:46] LABS: Influenza A PCR NEGATIVE (Negative); Influenza B PCR NEGATIVE (Negative); Resp Syncy Virus RNA Qual PCR NEGATIVE (Negative); SARS COV2 PCR INHOUSE NEGATIVE (Negative)
[2023-06-24] MEDS: Acetaminophen 325 MG TABLET 650 MG PO (19:04)
[2023-06-24] MEDS: Azithromycin 500 MG TABLET PO (19:47)
[2023-06-24] MEDS: Benzonatate 100 MG CAPSULE PO (19:47)
[2023-06-24] MEDS: Albuterol/Iprat 2.5/0.5MG 3 ML AMPUL.NEB INHALE (19:58)
== END 2023-06-24 20:15 | disposition home or self-care (01) ==
PROVIDERS: Physician Assistant; Emergency Provider Emergency Medicine; PCP Registered Nurse
DX: J40 Bronchitis, not specified as acute or chronic (principal); R06.02 Shortness of breath; R05.9 Cough, unspecified; Z20.822 Contact with and (suspected) exposure to COVID-19; Z20.828 Contact with and (suspected) exposure to other viral communicable diseases; Z79.899 Other long term (current) drug therapy
CPT/HCPCS: 0241U; 36415; 71045; 80048; 80076; 83735; 83880; 84484; 85025; 93005; 94640; 99284; 99285

== ENCOUNTER → 2023-07-11 10:50 | Outpatient (REF) | payer MEDICARE, SELFPAY ==
--- NOTE | 2023-07-11 10:52 | CA_ITS ---
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 The calculated ejection fraction is 66% by biplane method. - There is moderate septal and moderate basal asymmetric hypertrophy. - The mid inferoseptal segment is hypokinetic. - No obvious valvular pathology seen on this study. Findings Left Ventricle Normal left ventricular cavity size. The left ventricular systolic function is normal. The calculated ejection fraction is 66% by biplane method. There is no evidence of regional wall motion abnormalities. Diastolic function is normal for age. There is moderate septal and moderate basal asymmetric hypertrophy. Wall Motion Rest Echo Findings The mid inferoseptal segment is hypokinetic. Right Ventricle Normal right ventricular cavity size. There is low normal right ventricular systolic function. Atria Both atria are normal in size. Aortic Valve There is a normal trileaflet aortic valve. There is no aortic valve stenosis. There is no aortic valve regurgitation. Mitral Valve The mitral valve appears normal. There is no mitral valve regurgitation. There is no mitral valve stenosis. Pulmonic Valve The pulmonic valve is likely normal. Tricuspid Valve Normal tricuspid valve structure. There is trace tricuspid valve regurgitation. There is no evidence of pulmonary hypertension. Great Vessels The asc aorta is normal in size. Venous The inferior vena cava is normal in size and collapses greater than 50% with inspiration. Pericardium/Pleural There is no evidence of pericardial effusion. Prior Study Comparison No prior study available for comparison. Recommendations, Care & Conclusions No obvious valvular pathology seen on this study. Measurements 2D Linear Measurements IVSd: 1.50 0.6-0.9/0.6-1.0 cm LVIDd: 3.47 3.9-5.3/4.2-5.9 cm LVIDd Index: 2.21 2.4-3.2/2.2-3.1 cm/m2 LVIDs: 2.44 2.0-3.6 cm LVPWd: 1.05 0.7-1.1 cm LA Diam: 2.70 2.7-3.8/3.0-4.0 cm LAIDs Index: 1.72 1.5-2.3 cm/m2 LV Mass: 183.44 67-162/88-224 g LV Mass Index: 116.84 43-95/49-115 g/m2 LVOT Diam: 1.90 3.0+(-)1.3 cm 2D Systolic Function EF 4C: 65.50 >55% EF 2C: 64.90 >55% EF BiP: 65.80 >55% Mitral Valve MV VTI: 0.32 MV Pk Tad: 0.95 MV Mn Tad: 0.56 MV Pk Grad: 4.00 MV Mn Grad: 1.00 MV Pk E: 0.78 MV PK A: 0.84 MV Decel Time: 209.00 E/A: 0.90 E'Lateral: 6.85 E'Medial: 6.20 E/E' Med: 12.60 E/E' Lat: 11.40 PHT: 61.00 MVA PHT: 3.61 MVA Continuity: 1.83 Decel Zavala: 3.73 Aortic Valve AoV Pk Tad: 1.42 AoV Mn Tad: 1.04 AoV VTI: 0.32 AoV Pk Grad: 8.00 Aov Mn Grad: 5.00 CEDRICK Cont.VTI: 1.81 LVOT LVOT Pk Tad: 0.91 LVOT Mn Tad: 0.63 LVOT VTI: 0.21 LVOT Pk Grad: 3.00 LVOT Mn Grad: 2.00 LVOT Diam: 1.90 LVOT Area: 2.84 Diastolic Function MV Pk E: 0.78 MV Pk A: 0.84 E/A: 0.90 E'Medial: 6.20 E/E' Med: 12.60 E' Laterial: 6.85 E/E' Lat: 11.40 Right Ventricle TAPSE (mm): 18.40 TVS' Tad: 8.49 Tricuspid Valve TR Pk Tad: 2.19 TR Pk Grad: 19.00 RA Press: 3.00 RVSP: 22.00 Great Vessels Aorta Sinus of Valsalva: 3.10 2.0-3.[address] Ridge: 2.71 1.7-3.4 cm Ao Asc: 3.50 2.1-3.4 cm Updated in Other Vendor System with Status of Final Robert Carranza MD electronically signed on 07/13/2023 10:39:39 AM with status of Final
== END ==
LOC: HO.CARD 10:50
PROVIDERS: PCP Registered Nurse; Visit Provider Registered Nurse
DX: R00.2 Palpitations (principal)
CPT/HCPCS: 93306

== ENCOUNTER → 2023-07-11 10:52 | Outpatient (BNV) | payer MEDICARE, SELFPAY | PROVIDERS: PCP Registered Nurse; Visit Provider Internal Medicine | DX: I42.9 Cardiomyopathy, unspecified (principal) | CPT/HCPCS: 93306 ==

== ENCOUNTER 2023-08-20 08:05 | Outpatient (REF) | payer MEDICARE, SELFPAY | END 2023-08-20 08:06 | disposition home or self-care (01) | LOC: HO.MAMMO 08:05 | PROVIDERS: PCP Registered Nurse; Visit Provider Registered Nurse | DX: Z12.31 Encounter for screening mammogram for malignant neoplasm of breast (principal) | CPT/HCPCS: 77063; 77067 ==

== ENCOUNTER → 2023-08-20 08:15 | Outpatient (BNV) | payer MEDICARE, SELFPAY | PROVIDERS: PCP Registered Nurse; Visit Provider Radiology Diagnostic Radiology | DX: Z12.31 Encounter for screening mammogram for malignant neoplasm of breast (principal) | CPT/HCPCS: 77063; 77067 ==

== ENCOUNTER 2023-10-18 11:29 | Outpatient (REF) | payer MEDICARE, SELFPAY ==
[2023-11-09 08:14] LABS: NTX Total Volume 1350
[2023-11-09 08:15] LABS: N-Telopeptide 24Hr Urine 5; NTX-Creatinine 24Hr Urine 0.81
== END 2023-10-18 11:30 | disposition home or self-care (01) ==
LOC: HO.LNP 11:29
PROVIDERS: Visit Provider Internal Medicine Endocrinology, Diabetes & Metabolism
DX: Z13.89 Encounter for screening for other disorder (principal)

== ENCOUNTER 2023-11-05 13:20 | Outpatient (REF) | payer MEDICARE, SELFPAY ==
--- NOTE | ~2023-11-05 | XR_ITS ---
EXAMINATION: XR THORACOLUMBAR SPINE CLINICAL INFORMATION: Chronic upper back pain COMPARISON: None available. TECHNIQUE: AP and lateral views of thoracic and upper lumbar spine FINDINGS: There is S-shaped scoliosis of the thoracolumbar spine. Mild loss of height of the T10 vertebral body and the T3 vertebral body. There is multilevel disc space narrowing in the thoracic spine. The surrounding prevertebral soft tissues are unremarkable. XR/XR thoracic spine 2V IMPRESSION: 1. S-shaped scoliosis of the thoracolumbar spine. 2. Mild loss of height of the T3 and T10 vertebral bodies. Multilevel disc space narrowing in the thoracic spine.
== END 2023-11-05 13:21 | disposition home or self-care (01) ==
LOC: HO.HHCX 13:20
PROVIDERS: Visit Provider Registered Nurse
DX: R30.0 Dysuria (principal); M54.6 Pain in thoracic spine; G89.29 Other chronic pain
CPT/HCPCS: 72070; 87086

== ENCOUNTER 2023-11-21 09:02 | Outpatient (AMB) | payer MEDICARE, SELFPAY ==
--- NOTE | 2023-11-21 09:03 | A.OFFVIS_ITS ---
Intake Vital Signs 11/21/23 09:13 Height 4 ft 11 in Weight 136 lb 10.986 oz BMI 27.6 BP 134/64 Blood Pressure Location Lt brachial Position Sitting Pulse 60 Pulse Source Pulse Oximeter Intake Visit Reasons: F/U Osteoporosis-confirmed Intake Note: Patient present today for Osteoporosis follow up visit. Patient previously seen by Dr. Thompson on 05/21/23. Family Living Educator Required: Yes Family Living Educator Language: Steel [place] Caulker Name: Nicky medical staff Information Interpreted: non-clinical & clinical Accompanied by: Self / Same As Patient Allergies morphine [MORPHINE] Allergy (Unknown, Verified 11/21/23 09:16) RASH HPI HPI Comments History of Present Illness Details 73 YO Female with a PMHx Osteoporosis due to Hyperparathyroidism, now S/P 3.5 gland parathyroidectomy, as well as hyperthyroidism who is seen in F/U. She was previously followed by Dr. Rivas. The patient last saw Dr. Thompson on 05/21/2023 She has a history of Osteoporosis with prior treatment with oral bisophosphonates as well as Prolia. She failed treatment with oral bisophosphonates and was switched to Prolia in April 2019. It appears she had 2 doses, the second April 2020. She was then diagnosed with primary hyperparathyroidism and underwent a subtotal parathyroidectomy (3.5 gland resection) with only a remnant of the R inferior gland remaining. This was completed 02/15/2021. Intraoperative PTH declined from 92 to 22, indicating cure. She does report prior fragility fracture of her R wrist and Clavicle. 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 She remains on Levothyroxine 50 mcg PO daily with TSH at goal. She reports anxiety, but otherwise states she feels well. She has no other complaints today. DEXA: 05/11/2023 FINDINGS: LEFT FEMUR, NECK: Current: BMD 0.655 g/cm2, Z-score -0.7, T-score -2.8, osteoporosis. Prior: BMD 0.687 g/cm2. Baseline: BMD 0.707 g/cm2. LEFT FEMUR, TOTAL: Current: BMD 0.695 g/cm2, Z-score -0.6, T-score -2.5, osteoporosis, 7.6% decrease from previous, 15.8% decre ase from baseline (<5% change is not significant). Prior: BMD 0.752 g/cm2. Baseline: BMD 0.825 g/cm2. AP SPINE L1-L3 (excluding L4): The data of L1-L4 has been changed to exclude the L4 vertebral body, because degenerative sclerosis at this level may cause overestimation of lumbar spine density. Current: BMD 0.660 g/cm2, Z-score -2.3, T-score -4.3, osteoporosis, 11.2% decrease from previous, 16.1% decr ease from baseline (<5% change is not significant). Prior: BMD 0.743 g/cm2. Baseline: BMD 0.787 g/cm2. LEFT FOREARM RADIUS 33%: BMD 0.596 g/cm2, Z-score -1.0, T-score -3.2, osteoporosis, 1.7% increase from baseline (<5% change is not significant). Baseline: BMD 0.586 g/cm2. IDENTIFIED RISK FACTORS: Early menopause, secondary osteoporosis, hysterectomy, bilateral oophorectomy, height loss, history of fracture (adult), hyperparathyroidism, low calcium intake. Labs: Laboratory Tests 03/22/23 03/22/23 15:38 15:38 Creatinine 0.89 Estimated GFR > 60 Calcium 10.1 D Albumin 4.4 TSH 1.43 Free T4 0.89 PTH Intact 55 Calcium (PTH Intac t) 9.6 Taking calcium and vitamin D. No hx of radiation ttreatment in past. No CT or heart attack in past PFSH Medical History Kidney stone Back pain Arthritis HLD (hyperlipidemia) Hypothyroidism Diabetes Hypertension Asthma Hyperthyroidism Vitamin D deficiency Primary hyperparathyroidism Postablative hypothyroidism Surgical History Hx of colonoscopy History of esophagogastroduodenoscopy (EGD) Hx of endoscopy S/P subtotal parathyroidectomy History of carpal tunnel release of both wrists Hx of cataract removal with insertion of prosthetic lens Hx of lithotripsy Hx of cholecystectomy Hx of hysterectomy Family History Father No problems noted. Mother No problems noted. Social History Household Members: Family Are you a primary care transitions manager to a significant other at home: No Do you presently have visiting nurse or other home services: No Alcohol intake: never Patient Tobacco Use Status: Never used Tobacco Assessment & Plan Assessment & Plan (1) Osteoporosis: Code(s): M81.0 - Age-related osteoporosis without current pathological fracture Qualifiers: Osteoporosis type: age-related Presence of current pathological fracture: without current pathological fracture Qualified Code(s): M81.0 - Age- related osteoporosis without current pathological fracture Plan: 73-year-old female with a history of severe osteoporosis and primary hyperparathyroidism status post parathyroidectomy with normalization of PTH and calcium. Secondary workup was negative. Patient has received oral bisphosphonate, Prolia and more recently Reclast in the past. She had fragility fractures of right wrist and clavicle in the past. Considering severity of osteoporosis and prior history of fragility fracture, anabolic therapy might be warranted prior to resuming anti resorptive therapy. Will talk to the patient about options of anabolic therapy including use of Evenity versus Tymlos versus Forteo. Cured hyperparathyroidism is not a contraindication to use of anabolic therapy including use of PTH or PTH RP. After a careful discussion with the patient with the use of an process safety management engineer, we decided to pursue getting Evenity Coding Level of Care Code Est Pt Level 3 (00433) Diagnoses Age-related osteoporosis without current pathological fracture M81.0 Osteoporosis type: age-related Presence of current pathological fracture: without current pathological fracture
[2023-11-21 09:13] VITALS: BP 134/64; PULSE 60; BMI 27.6
== END 2023-11-21 09:33 | disposition home or self-care (01) ==
PROVIDERS: PCP Registered Nurse; Visit Provider Internal Medicine Endocrinology, Diabetes & Metabolism
DX: M81.0 Age-related osteoporosis without current pathological fracture (principal)
CPT/HCPCS: 99213

== ENCOUNTER → 2023-11-21 09:02 | Outpatient (BNVA) | payer MEDICARE, SELFPAY | PROVIDERS: PCP Registered Nurse; Visit Provider Internal Medicine Endocrinology, Diabetes & Metabolism | DX: M81.0 Age-related osteoporosis without current pathological fracture (principal) | CPT/HCPCS: 99212 ==

== ENCOUNTER 2023-11-26 12:32 | Outpatient (REF) | payer MEDICARE, SELFPAY ==
[2023-11-26 13:20] LABS: MANUAL DIFF FLAG NO
[2023-11-26 13:23] LABS: Appearance Urine Clear; Color Urine Dark Yellow; Glucose Urine UA Negative (Negative); Leukocyte Esterase Urine Large (3+) (Negative); Nitrite Urine Negative (Negative); UMIC TRIGGER UACC YES; Urine Blood Negative (Negative); Urine Ketones Negative (Negative); Urine Protein Negative (Neg-Trace)
[2023-11-26 13:29] LABS: Bacteria Urine None Seen (None Seen); Hyaline Casts Urine 0-2 /LPF (0-2); RBC Urine 0-2 /HPF (0-2); Squamous Epithelial Cell Urine 0-2 /HPF (0-2); UACC Culture Trigger YES
[2023-11-26 13:42] LABS: Basophils Percent Auto 0.6 % (0-2); Eosinophils Absolute Auto 0.4 X10*3/uL (0.0-0.4); Eosinophils Percent Auto 7.5 % (0-4); Hematocrit 38.3 % (37.0-47.0); Hemoglobin 12.2 g/dl (12.0-16.0); Imm Gran Abs Auto 0.01 X10*3/uL (0.00-0.03); Imm Gran Pct Auto 0.2 % (0.0-0.4); Lymphocytes Absolute Auto 1.9 X10*3/uL (1.2-4.9); Lymphocytes Percent Auto 34.8 % (20-40); Mean Corpuscular HGB Conc 31.9 g/dl (31.0-35.0); Mean Corpuscular Hemoglobin 31.7 pg (27.0-33.0); Mean Corpuscular Volume 99.5 fL (80.0-98.0); Mean Platelet Volume 10.1 fL (9.4-12.3); Monocytes Absolute Auto 0.4 X10*3/uL (0.1-1.2); Monocytes Percent Auto 7.5 % (2-11); Neutrophils Absolute Auto 2.6 x10*3/uL (2.0-8.3); Neutrophils Percent Auto 49.4 % (45-73); Platelet Count 279 X10*3/uL (160-400); Red Blood Count 3.85 X10*6/uL (4.20-5.50); Red Cell Distribution Width 15.5 % (11.0-16.0); White Blood Count 5.3 X10*3/uL (4.8-10.8)
[2023-11-26 14:33] LABS: Ferritin 18 ng/mL (10-250); TSH reflex Free T4 3.45 uIU/mL (0.32-4.0); Vitamin D 25-OH Total 52.7 ng/mL (>30)
== END 2023-11-26 12:33 | disposition home or self-care (01) ==
LOC: HO.HHCL 12:32
PROVIDERS: Visit Provider Registered Nurse
DX: R63.0 Anorexia (principal); R53.83 Other fatigue; R30.0 Dysuria
CPT/HCPCS: 36415; 81001; 82306; 82728; 84443; 85025; 87086

== ENCOUNTER 2023-12-07 12:10 | Emergency (ER) | payer MEDICARE, SELFPAY ==
[2023-12-07] VITALS (7 sets, daily range): BP systolic 00–120; BP diastolic 00–91; PULSE 0–86; RESP 0–22; TEMP -17.7–37; O2SAT 92–99; BMI 26.9
--- NOTE | ~2023-12-07 | XR_ITS ---
EXAMINATION: XR CHEST CLINICAL INFORMATION: Cough. COMPARISON: Chest radiograph dated 06/24/2023. TECHNIQUE: 2 views of the chest were obtained. FINDINGS: Heart size remains normal. There is calcific atherosclerotic disease of the aorta. There is no consolidation within either lung. No pleural effusion. No pneumothorax. No acute osseous abnormality. XR/XR chest 2V IMPRESSION: No acute cardiopulmonary disease. Stable appearance of the heart and lungs.
--- NOTE | 2023-12-07 12:24 | ED_ITS ---
HPI - General Adult General Chief complaint: Upper Respiratory Symptoms Stated complaint: asthma, bodyaches Time Seen by Provider: 12/07/23 12:29 History of Present Illness HPI narrative: Patient complains of wheezing chest tightness and shortness of breath typical of an asthma exacerbation for her, she has a history of asthma She was diagnosed with influenza yesterday and is taking Tamiflu She also has a cough and some body aches the cough is mild She denies any chest pain , no pain with deep breath she denies fainting or feeling faint no dizziness no neck pain no sore throat no difficulty swallowing solids or liquids, no nausea vomiting or diarrhea no leg swelling no calf pain or swelling Related Data Home Medications Medication Instructions Recorded Confirmed acetaminophen 500 mg tablet 1,000 mg PO Q6H PRN pain 10/27/20 05/21/23 albuterol sulfate 2.5 mg/3 mL mg inhalation Q6H PRN asthma 10/27/20 05/21/23 (0.083 %) solution for nebulization atorvastatin 40 mg tablet 40 mg PO DAILY 10/27/20 05/21/23 cetirizine 10 mg tablet 10 mg PO DAILY PRN Allergic 10/27/20 05/21/23 Symptoms citalopram 10 mg tablet 10 mg PO DAILY 10/27/20 05/21/23 clobetasol 0.05 % topical ointment g topical DAILY 10/27/20 05/21/23 mirtazapine 30 mg tablet 30 mg PO BEDTIME 10/27/20 05/21/23 montelukast 10 mg tablet 10 mg PO DAILY 10/27/20 05/21/23 multivitamin 1 tab PO DAILY 10/27/20 05/21/23 zolpidem 10 mg tablet 10 mg PO BEDTIME PRN Sleep 10/27/20 05/21/23 ascorbate calcium (vitamin C) 500 1 g PO Q6H 03/28/22 05/21/23 mg tablet amlodipine 5 mg tablet 2.5 mg PO DAILY 06/12/23 cyanocobalamin (vitamin B-12) 1,000 mcg PO QAM 06/12/23 1,000 mcg tablet Previous Rx's Medication Instructions Recorded calcium citrate 500 mg (2 x 250 mg calcium) PO BID 03/03/21 90 days #360 tabs cyclobenzaprine 10 mg tablet 10 mg PO TID PRN muscle spasm #14 11/15/21 tabs albuterol sulfate 2.5 mg/0.5 mL 5 mg inhalation Q4H PRN shortness 12/02/22 solution for nebulization of breath or wheezing #30 ea levothyroxine 50 mcg tablet 50 mcg PO DAILY 90 days #90 tabs 03/23/23 famotidine 20 mg tablet (Pepcid) 20 mg PO BEDTIME #90 tabs 06/12/23 pantoprazole 40 mg tablet,delayed 40 mg PO DAILY #90 tabs 06/12/23 release albuterol sulfate 90 mcg/actuation 2 inh inhalation Q4-6H PRN 06/21/23 breath activated powder inhaler shortness of breath or wheezing #1 ea prednisone 20 mg tablet 40 mg (2 x 20 mg) PO DAILY 5 days 06/21/23 #10 tabs azithromycin 250 mg tablet 250 mg PO DAILY 4 days #4 tabs 06/24/23 benzonatate 100 mg capsule 100 mg PO TID PRN cough #20 caps 06/24/23 linaclotide 290 mcg capsule 290 mcg PO QAM #90 caps 08/24/23 (Linzess) meloxicam 15 mg tablet 15 mg PO DAILY #90 tabs 09/11/23 albuterol sulfate 2.5 mg/3 mL 2.5 mg (3 mL) inhalation Q4-6H PRN 12/07/23 (0.083 %) solution for nebulization shortness of breath or wheezing #90 mL prednisone 20 mg tablet 60 mg (3 x 20 mg) PO DAILY 5 days 12/07/23 #15 tabs Allergies Allergy/AdvReac Type Severity Reaction Status Date / Time morphine [MORPHINE] Allergy Unknown RASH Verified 11/21/23 09:16 [facility] Past Medical History Source: nursing notes reviewed Medical History Kidney stone Back pain Arthritis HLD (hyperlipidemia) Hypothyroidism Diabetes Hypertension Asthma Hyperthyroidism Vitamin D deficiency Primary hyperparathyroidism Postablative hypothyroidism Surgical History Hx of colonoscopy History of esophagogastroduodenoscopy (EGD) Hx of endoscopy S/P subtotal parathyroidectomy History of carpal tunnel release of both wrists Hx of cataract removal with insertion of prosthetic lens Hx of lithotripsy Hx of cholecystectomy Hx of hysterectomy Family History Family History Father No problems noted. Mother No problems noted. Social History Social History Household Members: Family Are you a primary progressive care manager to a significant other at home: No Do you presently have visiting nurse or other home services: No Alcohol intake: never Patient Tobacco Use Status: Never used Tobacco Advance Directives: No Advance Directives Information Provided: Yes Physical Exam ED Vital Signs: Vital Signs - 24 hr 12/07/23 12:22 12/07/23 12:42 12/07/23 13:00 Temperature 98.6 F Pulse Rate 75 72 80 Respiratory Rate 18 22 H 20 Blood Pressure 120/91 H Pulse Oximetry 92 94 Oxygen Delivery Method Room Air Room Air 12/07/23 13:12 12/07/23 14:46 12/07/23 15:18 Temperature Pulse Rate 80 86 80 Respiratory Rate 18 22 H Blood Pressure Pulse Oximetry 92 Oxygen Delivery Method Room Air BMI result Body Mass Index 26.9 General appearance is no acute distress no respiratory distress, she can speak full sentences but her respiratory rate is around 23 or 24, her O2 sat is 92% The eyes no redness or discharge The pharynx is clear without redness swelling or exudate membranes are moist Neck is supple no JVD The chest has decreased breath sounds bilaterally with bilateral wheezing The heart no murmur Abdomen soft nontender Extremities no calf tenderness no edema no calf swelling Full range motion x4 Neuro gait and balance are normal, interaction comprehension and expression are normal Course Course Course Narrative: This is an RME: Additional HPI, ROS, PE not included below will be deferred to primary provider. Patient is a 73-year-old female Reporting concerns of asthma exacerbation, chest pain, rib pain, body aches, shortness of breath since yesterday. She was diagnosed with influenza yesterday, prescribed Tamiflu, reports that nebulizer and inhalers have not been helpful for her symptoms. Plan: Moved to [facility] bed 1 Patient was treated with a DuoNeb and for brief time her O2 sat was 95% respiratory rate 18 Chest x-ray was negative Confirmatory testing to make sure she does not have COVID as well was negative for COVID but positive for flu She was observed for over an hour repeat exam showed that she still had wheezing, she did feel improved she was satting around 93 94% respiratory rate was 18 Another treatment was given and after the 2nd treatment her wheezing was improved but still present air movement was more open and still mildly diminished, no prolonged expiration speaking full sentences and she felt comfortable to go home I walked her around the ER in and rechecked vitals and her O2 sat was again 92- 93% and her respiratory rate was around 22 She was still speaking full sentences and said she felt fine to go home and has very good family support lives with her daughter and said she would not exert herself and wanted to go home This was discussed with attending physician will who agreed well-appearing patient still wheezing O2 sat 92 but no respiratory distress was safe to go home with good family support low threshold for returning if she becomes short of breath and she is discharged Medications Administered Discontinued Medications Generic Name Dose Route Start Last Admin Trade Name Freq PRN Reason Stop Dose Admin Albuterol/Ipratropium 3 ml 12/07/23 13:10 12/07/23 13:12 Albuterol/Iprat 2.5/0.5mg 3 Ml Ampul.Neb INHALE 12/07/23 13:11 3 ml ONCE ONE Administration Albuterol Sulfate 2.5 mg/ 0 mg 12/07/23 12:38 12/07/23 12:42 Albuterol/Ipratropium 3 ml INHALE 12/07/23 12:39 1 dose ONCE ONE Administration Albuterol Sulfate 2.5 mg/ 0 mg 12/07/23 14:43 12/07/23 14:46 Albuterol/Ipratropium 3 ml INHALE 12/07/23 14:44 1 dose ONCE ONE Administration Prednisone 60 mg 12/07/23 12:41 12/07/23 13:01 Prednisone 20 Mg Tablet PO 12/07/23 12:42 60 mg ONCE ONE Administration Medical Decision Making Lab Data MDM Lab Attestation statement: I reviewed the patient's lab results. Labs: Lab Results 12/07/23 Range/Units 13:04 Influenza Type A (PCR) POSITIVE A (Negative) Influenza Type B (PCR) NEGATIVE (Negative) RSV RNA Qual (PCR) NEGATIVE (Negative) SARS-CoV-2 RNA (RT-PCR) NEGATIVE (Negative) Discharge Plan Discharge Clinical Impression: Influenza, Asthma Patient Disposition: Home, Self-Care Additional Instructions: Your asthma improved mildly with treatment but is not better Minimal exertion for the next couple of days Make sure to use your albuterol every 4-6 hours Prednisone usually starts to take an affect within 24 hours Return to the ER any time for any worse difficulty breathing any worse condition or any concerns Prescriptions: New albuterol sulfate 2.5 mg /3 mL (0.083 %) solution for nebulization 2.5 mg inhalation Q4-6H PRN (Reason: shortness of breath or wheezing) Qty: 90 0RF prednisone 20 mg tablet 60 mg PO DAILY 5 Days Qty: 15 0RF No Action levothyroxine 50 mcg tablet 50 mcg PO DAILY 90 Days Qty: 90 1RF Rx Instructions: Dose decreased to 50 mcg please discontinue prior prescription of 75 mcg Linzess 290 mcg capsule 290 mcg PO QAM Qty: 90 4RF meloxicam 15 mg tablet 15 mg PO DAILY Qty: 90 0RF cyclobenzaprine 10 mg tablet 10 mg PO TID PRN (Reason: muscle spasm) Qty: 14 0RF albuterol sulfate 2.5 mg/0.5 mL solution for nebulization 5 mg inhalation Q4H PRN (Reason: shortness of breath or wheezing) Qty: 30 0RF prednisone 20 mg tablet 40 mg PO DAILY 5 Days Qty: 10 0RF albuterol sulfate 90 mcg/actuation aerosol powdr breath activated 2 inh inhalation Q4-6H PRN (Reason: shortness of breath or wheezing) Qty: 1 0RF azithromycin 250 mg tablet 250 mg PO DAILY 4 Days Qty: 4 0RF Rx Instructions: start on day 2 of therapy benzonatate 100 mg capsule 100 mg PO TID PRN (Reason: cough) Qty: 20 0RF zolpidem 10 mg tablet 10 mg PO BEDTIME PRN (Reason: Sleep) mirtazapine 30 mg tablet 30 mg PO BEDTIME citalopram 10 mg tablet 10 mg PO DAILY albuterol sulfate 2.5 mg /3 mL (0.083 %) solution for nebulization inhalation Q6H PRN (Reason: asthma) atorvastatin 40 mg tablet 40 mg PO DAILY montelukast 10 mg tablet 10 mg PO DAILY cetirizine 10 mg tablet 10 mg PO DAILY PRN (Reason: Allergic Symptoms) multivitamin Tablet 1 tab PO DAILY acetaminophen 500 mg tablet 1,000 mg PO Q6H PRN (Reason: pain) clobetasol 0.05 % ointment topical DAILY calcium citrate 250 mg calcium tablet 500 mg PO BID 90 Days Qty: 360 1RF amlodipine 5 mg tablet 2.5 mg PO DAILY ascorbate calcium (vitamin C) 500 mg tablet 1 g PO Q6H cyanocobalamin (vitamin B-12) 1,000 mcg tablet 1,000 mcg PO QAM famotidine [Pepcid] 20 mg tablet 20 mg PO BEDTIME Qty: 90 3RF pantoprazole 40 mg tablet,delayed release (DR/EC) 40 mg PO DAILY Qty: 90 2RF Rx Instructions: libby un comprimido media hora antes del desayuno
[2023-12-07] MEDS: Albuterol Sulfate 2.5 MG, Albuterol/Iprat 2.5/0.5MG 3 ML 3 ML INHALE ×2 (12:42→14:46)
[2023-12-07] MEDS: predniSONE 20 MG TABLET 60 MG PO (13:01)
[2023-12-07] MEDS: Albuterol/Iprat 2.5/0.5MG 3 ML AMPUL.NEB INHALE (13:12)
[2023-12-07 14:00] LABS: Influenza A PCR POSITIVE (Negative); Influenza B PCR NEGATIVE (Negative); Resp Syncy Virus RNA Qual PCR NEGATIVE (Negative); SARS COV2 PCR INHOUSE NEGATIVE (Negative)
== END 2023-12-07 16:08 | disposition home or self-care (01) ==
PROVIDERS: Physician Assistant Medical; Emergency Provider Emergency Medicine; PCP Registered Nurse
DX: J11.1 Influenza due to unidentified influenza virus with other respiratory manifestations (principal); J45.909 Unspecified asthma, uncomplicated; I10 Essential (primary) hypertension; E11.9 Type 2 diabetes mellitus without complications; Z11.52 Encounter for screening for COVID-19; Z20.828 Contact with and (suspected) exposure to other viral communicable diseases
CPT/HCPCS: 0241U; 71046; 94640; 94664; 99283; 99285

== ENCOUNTER 2023-12-11 09:38 | Outpatient (AMB) | payer MEDICARE, SELFPAY ==
--- NOTE | 2023-12-11 09:47 | MHC.OFFVIS ---
Intake Vital Signs 12/11/23 09:50 Height 4 ft 11 in Weight 132 lb 4.438 oz BMI 26.7 BP 134/74 Blood Pressure Location Lt brachial Position Sitting Pulse 63 Intake Visit Reasons: 6 month follow up Intake Note: Hedy presents in the office as a 6 month follow up. CC: States in July she had brain surgery. Patient Ambassador Required: Yes Patient Ambassador Name: [id number] Shannan Allergies morphine [MORPHINE] Allergy (Unknown, Verified 12/11/23 09:51) RASH HPI 6 month follow up HPI Details LAST VISIT GERD (gastroesophageal reflux disease) Continue current does of pantoprazole, continue famotidine. Patient was instructed to avoid dietary triggers in late night snacking. Staying upright for minimum 3 hours after meals discussed with patient. Will consider decreasing the pantoprazole next visit Chronic idiopathic constipation Continue current dose of Linzess. Patient was also encouraged to increase fluid intake and activity to promote better bowel motility. I will see patient in 6 months, sooner on as needed basis. Patient is agreeable to this plan and verbalizes understanding of instructions. She was given the opportunity to ask questions and all questions answered. ? Thank you for allowing me to participate in her care Plan Medications Refilled linaclotide (Linzess) 290 mcg PO QAM 90 caps 4RF K59.00 famotidine (Pepcid) 20 mg PO BEDTIME 90 tabs 3RF K21.9 pantoprazole libby un comprimido media hora antes del desayuno 40 mg PO DAILY 90 tabs 2RF K21.9 Discontinued methylcellulose (laxative) (Citrucel) libby todas las mananas con un vaso de agua lleno Discontinued Reason: Patient no longer taking 500 mg PO DAILY 90 tabs 2RF K59.00 TODAY'S VISIT: Patient is here today for follow-up. Patient reports that since the last time I have seen her she has been feeling better. She is tolerating Linzess. Takes it daily and reports that she is moving her bowels without any issues. Patient no longer is experiencing postprandial abdominal bloating. She changed her diet and avoiding food that is high in fat, fried. Her symptoms of acid reflux are suppressed with pantoprazole and famotidine. Patient denies any nausea or vomiting. Patient reports that she has been feeling much better. Patient denies dyspepsia, dysphagia or odynophagia. Patient denies any melena, hematochezia, unintentional weight loss or ribbon like stools PFSH Medical History Kidney stone Back pain Arthritis HLD (hyperlipidemia) Hypothyroidism Diabetes Hypertension Asthma Hyperthyroidism Vitamin D deficiency Primary hyperparathyroidism Postablative hypothyroidism Surgical History Hx of colonoscopy History of esophagogastroduodenoscopy (EGD) Hx of endoscopy S/P subtotal parathyroidectomy History of carpal tunnel release of both wrists Hx of cataract removal with insertion of prosthetic lens Hx of lithotripsy Hx of cholecystectomy Hx of hysterectomy Family History Father No problems noted. Mother No problems noted. Social History Household Members: Family Are you a primary companion caregiver to a significant other at home: No Do you presently have visiting nurse or other home services: No Alcohol intake: never Patient Tobacco Use Status: Never used Tobacco Review of Systems Const Denies weight gain and Denies weight loss ENT Reports no additional complaints, Denies dysphagia and Denies odynophagia Card Reports no additional complaints Resp Reports no additional complaints GI Denies abdominal pain, Denies belching, Denies melena, Denies bloating, Denies change in bowel habits, Denies dysphagia, Denies excessive flatus, Denies dyspepsia, Denies heartburn, Denies diarrhea, Denies loose stools, Denies nausea, Denies odynophagia and Denies vomiting Reports no additional complaints Musc Reports no additional complaints Neuro Reports no additional complaints Psych Reports no additional complaints Endo Reports no additional complaints Physical Exam Vital Signs: Last Vital Signs Pulse 63 12/11/23 09:50 BP 134/74 12/11/23 09:50 BMI result Body Mass Index 26.7 Const General: healthy appearing, no acute distress and well developed Nutritional Appearance: well nourished Orientation/consciousness: patient oriented x3 Resp Effort & Inspection: normal respiratory effort, able to speak in complete sentences, no tracheal deviation and symmetric chest movement Auscultation: clear to auscultation bilaterally Cardio Rate: regular rate GI Inspection: Yes normal to inspection and No distended Palpation (GI): Soft to palpation, not firm, nontender and No hepatosplenomegaly present Auscultation: normal bowel sounds General: Yes no CVA tenderness Back/Spine/Pelvis Back: no CVA tenderness Skin General skin exam: elasticity normal, turgor normal and dry skin Neuro General: patient oriented x3 Psych Appearance: grossly normal Mental Status: mental status grossly normal Assessment & Plan Assessment & Plan (1) GERD (gastroesophageal reflux disease): Code(s): K21.9 - Gastro-esophageal reflux disease without esophagitis Qualifiers: Esophagitis presence: esophagitis presence not specified Qualified Code(s): K21.9 - Gastro-esophageal reflux disease without esophagitis (2) Chronic idiopathic constipation: Code(s): K59.04 - Chronic idiopathic constipation Plan Patient is doing better now that she is taking Linzess daily. Continue to avoid dietary triggers in late night snacking. Patient will increase fluid intake and activity to promote better bowel motility. Patient can take pantoprazole in the morning and famotidine at bedtime. I will see her in 6 months, sooner on as needed basis. Patient is agreeable to this plan and verbalizes understanding of instructions. She was given the opportunity to ask questions and all questions answered. Thank you for allowing me to participate in her care Medications: Refilled linaclotide (Linzess) 290 mcg PO QAM 90 caps 4RF K59.00 - Constipation, unspecified linaclotide (Linzess) 290 mcg PO QAM 90 caps 4RF K59.00 - Constipation, unspecified pantoprazole libby un comprimido media hora antes del desayuno 40 mg PO DAILY 90 tabs 2RF K21.9 - Gastro-esophageal reflux disease without esophagitis famotidine (Pepcid) 20 mg PO BEDTIME 90 tabs 3RF K21.9 - Gastro-esophageal reflux disease without esophagitis pantoprazole libby un comprimido media hora antes del desayuno 40 mg PO DAILY 90 tabs 2RF K21.9 - Gastro-esophageal reflux disease without esophagitis Coding Level of Care Code Est Pt Level 3 (67603) Diagnoses Gastroesophageal reflux disease, unspecified whether esophagitis present K21.9 Esophagitis presence: esophagitis presence not specified Chronic idiopathic constipation K59.04 Time Spent (min) 25 Comment 15 minutes spent with patient and additional 10 minutes spent reviewing her records
[2023-12-11 09:50] VITALS: BP 134/74; PULSE 63; BMI 26.7
== END 2023-12-11 10:06 | disposition home or self-care (01) ==
PROVIDERS: PCP Registered Nurse; Visit Provider Nurse Practitioner Family
DX: K21.9 Gastro-esophageal reflux disease without esophagitis (principal); K59.04 Chronic idiopathic constipation
CPT/HCPCS: 99213

== ENCOUNTER → 2023-12-11 09:38 | Outpatient (BNVA) | payer MEDICARE, SELFPAY | PROVIDERS: PCP Registered Nurse; Visit Provider Nurse Practitioner Family | DX: K21.9 Gastro-esophageal reflux disease without esophagitis (principal); K59.04 Chronic idiopathic constipation | CPT/HCPCS: 99212 ==

== ENCOUNTER 2023-12-31 08:57 | Outpatient (AMB) | payer MEDICARE, SELFPAY ==
--- NOTE | 2023-12-31 09:46 | AM.OFFVISNUR ---
Intake Intake Visit Reasons: Evenity Allergies morphine [MORPHINE] Allergy (Unknown, Verified 12/11/23 09:51) RASH Office Meds romosozumab-aqqg 210 mg/2.34 mL(105 mg/1.17 mL x2)subcutaneous syringe Performing Provider: Pedro Luis Molina MD [place] [facility] [place] Administered by: Nicky España LPN on 12/31/23 09:46 Dose Route Admin Location Dispensed Lot Number Expiration Date [facility] Floorwalker 210 mg subcut 2.34 mL [id number] 03/23/26 AMGEN Coding Assessment & Plan Assessment & Plan Orders: Orders AMB Romosozumab Injection Patient Supplied Today M81.0 - Age-related osteoporosis without current pathological fracture Medications: New romosozumab-aqqg 210 mg (2.34 mL) subcut ONCE 2.34 mL 0RF M81.0 - Age-related osteoporosis without current pathological fracture
== END 2023-12-31 09:19 | disposition home or self-care (01) ==
PROVIDERS: PCP Registered Nurse; Visit Provider Internal Medicine Endocrinology, Diabetes & Metabolism
DX: M81.0 Age-related osteoporosis without current pathological fracture (principal)

== ENCOUNTER → 2023-12-31 08:57 | Outpatient (BNVA) | payer MEDICARE, SELFPAY | PROVIDERS: PCP Registered Nurse; Visit Provider Internal Medicine Endocrinology, Diabetes & Metabolism | DX: M81.0 Age-related osteoporosis without current pathological fracture (principal) | CPT/HCPCS: 96372; J3111 ==

== ENCOUNTER 2024-01-29 08:50 | Outpatient (AMB) | payer MEDICARE, SELFPAY ==
--- NOTE | 2024-01-29 09:16 | AM.OFFVISNUR ---
Intake Intake Visit Reasons: Evenity Allergies morphine [MORPHINE] Allergy (Unknown, Verified 12/11/23 09:51) RASH Office Meds romosozumab-aqqg 210 mg/2.34 mL(105 mg/1.17 mL x2)subcutaneous syringe Performing Provider: Pedro Luis Molina MD Performing Location: [facility] [place]ology Administered by: Nicky España LPN on 01/29/24 09:16 Dose Route Admin Location Dispensed Lot Number Expiration Date [facility] [employer]atory Attendant 210 mg subcut Bilateral upper arms 2.34 mL [id number] 03/23/26 AMGEN Coding Assessment & Plan Assessment & Plan Orders: Orders AMB Romosozumab Injection Patient Supplied Today M81.0 - Age-related osteoporosis without current pathological fracture Medications: New romosozumab-aqqg 210 mg (2.34 mL) subcut ONCE 2.34 mL 0RF M81.0 - Age-related osteoporosis without current pathological fracture
== END 2024-01-29 09:14 | disposition home or self-care (01) ==
PROVIDERS: PCP Registered Nurse; Visit Provider Internal Medicine Endocrinology, Diabetes & Metabolism
DX: M81.0 Age-related osteoporosis without current pathological fracture (principal)

== ENCOUNTER → 2024-01-29 08:50 | Outpatient (BNVA) | payer MEDICARE, SELFPAY | PROVIDERS: PCP Registered Nurse; Visit Provider Internal Medicine Endocrinology, Diabetes & Metabolism | DX: M81.0 Age-related osteoporosis without current pathological fracture (principal) | CPT/HCPCS: 96372; J3111 ==

== ENCOUNTER 2024-02-07 13:22 | Outpatient (AMB) | payer MEDICARE, SELFPAY ==
[2024-02-07 13:41] VITALS: PULSE 69; O2SAT 93; BMI 27.3
--- NOTE | 2024-02-07 13:41 | MHC.OFFVIS ---
Vital Signs 02/07/24 13:41 Height 4 ft 11 in Weight 135 lb BMI 27.3 Pulse 69 Pulse Source Pulse Oximeter Pulse Oximetry (%) 93 Oxygen Delivery Method Room Air Intake Visit Reasons: Moderate Persistent Asthma Shirt Hemmer Required: No Allergies morphine [MORPHINE] Allergy (Unknown, Verified 02/07/24 13:42) RASH HPI Comments Details: The patient is here for pulmonary evaluation. The patient is a 73 year woman known history of asthma now with worsening asthma symptoms. The patient states that she was in her usual state health until she had her 1st baby. After her she started developing asthma symptoms since she started using inhalers. The patient most recently was evaluated in the ER back in November 2023 for an asthma exacerbation. At that point she was having also flu-like symptoms and she was positive for the flu. She was treated with Tamiflu. Prior to that she had been evaluated in the ER back in June for an asthma exacerbation. She did have a chest x-ray demonstrating no significant abnormalities except for a slightly elevated left hemidiaphragm. She also has had imaging studies including a CT scan of the chest which I personally reviewed from 2019 demonstrating multiple pulmonary nodules which were benign appearance and appeared to be stable when compared to previous CT scans from 2016. The patient states that she does have underlying allergies. She has never been treated for allergies. I did review her blood work she does have significant eosinophilia suggesting eosinophilic asthma. She still has some wheezing on examination will try to optimize her respiratory therapy by adding a long-acting muscarinic antagonist. The patient may also be a candidate biologics if she continues to require prednisone have frequent exacerbations. [facility] Medical History (Updated 02/07/24 @ 22:01 by Roberto España MD) Pulmonary nodules Allergies Kidney stone Back pain Arthritis HLD (hyperlipidemia) Hypothyroidism Diabetes Hypertension Asthma Hyperthyroidism Vitamin D deficiency Primary hyperparathyroidism Postablative hypothyroidism Surgical History Hx of colonoscopy History of esophagogastroduodenoscopy (EGD) Hx of endoscopy S/P subtotal parathyroidectomy History of carpal tunnel release of both wrists Hx of cataract removal with insertion of prosthetic lens Hx of lithotripsy Hx of cholecystectomy Hx of hysterectomy Family History Father No problems noted. Mother No problems noted. Social History Household Members: Family Are you a primary med care manager to a significant other at home: No Do you presently have visiting nurse or other home services: No Alcohol intake: never Patient Tobacco Use Status: Never used Tobacco Review of Systems Const Denies weight gain and Denies weight loss ENT Reports no additional complaints, Reports nasal congestion and Reports nasal discharge Card Reports no additional complaints Resp Reports cough and Reports wheezing GI Denies abdominal pain Musc Reports no additional complaints Neuro Reports no additional complaints Psych Reports no additional complaints Endo Reports no additional complaints Aller/Immun Reports wheezing Physical Exam Vital Signs: Last Vital Signs Pulse 69 02/07/24 13:41 Pulse Ox 93 02/07/24 13:41 Oxygen Delivery Method Room Air 02/07/24 13:41 BMI result Body Mass Index 27.3 Const General: healthy appearing, no acute distress and well developed Nutritional Appearance: well nourished Orientation/consciousness: patient oriented x3 HEENT Head: Yes normocephalic Neck Neck: Yes supple Chest Chest palpation & inspection: normal inspection of the chest Resp Effort & Inspection: normal respiratory effort Auscultation: wheezes Cardio Rate: regular rate GI Inspection: No distended Palpation (GI): Soft to palpation General: Yes no CVA tenderness Back/Spine/Pelvis Back: no CVA tenderness Skin General skin exam: no rashes or lesions noted Neuro General: patient oriented x3 Extrem General: Yes no clubbing, cyanosis or edema Psych Appearance: grossly normal Mental Status: mental status grossly normal Assessment & Plan Assessment & Plan (1) Asthma: Code(s): J45.909 - Unspecified asthma, uncomplicated Category: Medical Qualifiers: Asthma severity: moderate Asthma persistence: persistent Asthma complication type: uncomplicated Qualified Code(s): J45.40 - Moderate persistent asthma, uncomplicated (2) Allergies: Code(s): T78.40XA - Allergy, unspecified, initial encounter Category: Medical Qualifiers: Encounter type: initial encounter Qualified Code(s): T78.40XA - Allergy, unspecified, initial encounter (3) Pulmonary nodules: Comment: subcentemeter, stable 2016 to 2019 Code(s): R91.8 - Other nonspecific abnormal finding of lung field Category: Medical Plan continue Symbicort start Incruse MARCO as needed continue Zyrtec continue Singulair PFTs consider Biologic therapy if no better F/U 3 months Medications: New umeclidinium 62.5 mcg/actuation (Incruse Ellipta) 1 inh inhalation DAILY 30 ea 11RF 30 days J45.909 - Unspecified asthma, uncomplicated Coding Level of Care Code New Pt Level 4 (12968) Diagnoses Moderate persistent asthma without complication J45.40 Asthma severity: moderate Asthma persistence: persistent Asthma complication type: uncomplicated Allergy, initial encounter T78.40XA Encounter type: initial encounter Pulmonary nodules R91.8 Time Spent (min) 35
== END 2024-02-07 14:05 | disposition home or self-care (01) ==
PROVIDERS: PCP Registered Nurse; Visit Provider Hospitalist
DX: J45.40 Moderate persistent asthma, uncomplicated (principal); T78.40XA Allergy, unspecified, initial encounter; R91.8 Other nonspecific abnormal finding of lung field
CPT/HCPCS: 99204

== ENCOUNTER → 2024-02-07 13:22 | Outpatient (BNVA) | payer MEDICARE, SELFPAY | PROVIDERS: PCP Registered Nurse; Visit Provider Hospitalist | DX: J45.40 Moderate persistent asthma, uncomplicated (principal); T78.40XA Allergy, unspecified, initial encounter; R91.8 Other nonspecific abnormal finding of lung field | CPT/HCPCS: 99202 ==

== ENCOUNTER 2024-02-22 08:57 | Outpatient (REF) | payer MEDICARE, SELFPAY | END 2024-02-22 08:58 | disposition home or self-care (01) | LOC: HO.RESP 08:57 | PROVIDERS: PCP Nurse Practitioner Family; Visit Provider Hospitalist | DX: Z13.89 Encounter for screening for other disorder (principal) ==

== ENCOUNTER 2024-02-22 12:04 | Outpatient (REF) | payer MEDICARE, SELFPAY ==
[2024-02-22 13:20] LABS: Appearance Urine Clear; Color Urine Yellow; Glucose Urine UA Negative (Negative); Leukocyte Esterase Urine Trace (Negative); Nitrite Urine Negative (Negative); UMIC TRIGGER UACC YES; Urine Blood Negative (Negative); Urine Ketones 15 mg/dL (Negative); Urine Protein Negative (Neg-Trace)
[2024-02-22 13:23] LABS: Bacteria Urine None Seen (None Seen); Hyaline Casts Urine 0-2 /LPF (0-2); MANUAL DIFF FLAG NO; RBC Urine 0-2 /HPF (0-2); Squamous Epithelial Cell Urine 0-2 /HPF (0-2); WBC Urine 0-5 /HPF (0-5)
[2024-02-22 13:51] LABS: Basophils Percent Auto 0.5 % (0-2); Eosinophils Percent Auto 0.5 % (0-4); Hematocrit 41.1 % (37.0-47.0); Hemoglobin 13.6 g/dl (12.0-16.0); Imm Gran Abs Auto 0.01 X10*3/uL (0.00-0.03); Imm Gran Pct Auto 0.2 % (0.0-0.4); Lymphocytes Absolute Auto 1.2 X10*3/uL (1.2-4.9); Lymphocytes Percent Auto 20.4 % (20-40); Mean Corpuscular HGB Conc 33.1 g/dl (31.0-35.0); Mean Corpuscular Hemoglobin 31.5 pg (27.0-33.0); Mean Corpuscular Volume 95.1 fL (80.0-98.0); Mean Platelet Volume 10.6 fL (9.4-12.3); Monocytes Absolute Auto 0.3 X10*3/uL (0.1-1.2); Monocytes Percent Auto 5.1 % (2-11); Neutrophils Absolute Auto 4.3 x10*3/uL (2.0-8.3); Neutrophils Percent Auto 73.3 % (45-73); Platelet Count 260 X10*3/uL (160-400); Red Blood Count 4.32 X10*6/uL (4.20-5.50); Red Cell Distribution Width 13.6 % (11.0-16.0); White Blood Count 5.8 X10*3/uL (4.8-10.8)
[2024-02-22 14:19] LABS: Alanine Aminotransferase 27 U/L (0-31); Albumin Level 4.6 g/dL (3.5-5.0); Alkaline Phosphatase 68 U/L (39-117); Anion Gap 16 (12-20); Aspartate Amino Transferase 28 U/L (5-31); Bilirubin Total 0.6 mg/dL (0.0-1.0); Blood Urea Nitrogen 12 mg/dL (9-16); C Reactive Protein < 0.10 mg/dL (< or = 0.50); Calcium 9.5 mg/dL (8.4-10.2); Carbon Dioxide 27 mmol/L (22-29); Chloride 104 mmol/L (96-108); Estimated Glomerular Filt Rate 57; Glucose Random 90 mg/dL (60-115); Potassium 4.6 mmol/L (3.3-5.1); Sodium 142 mmol/L (135-145)
[2024-02-22 14:29] LABS: Free T4 (Free Thyroxine) 0.84 ng/dL (0.71-1.85); Thyroid Stimulating Hormone 6.54 uIU/mL (0.32-4.0)
[2024-02-22 14:39] LABS: Erythrocyte Sedimentation Rate 7 MM/HR (0-20)
== END 2024-02-22 12:05 | disposition home or self-care (01) ==
LOC: HO.HHCL 12:04
PROVIDERS: Visit Provider Registered Nurse
DX: R42 Dizziness and giddiness (principal)
CPT/HCPCS: 36415; 80053; 81001; 84439; 84443; 85025; 85652; 86140

== ENCOUNTER 2024-02-23 11:36 | Emergency (ER) | payer MEDICARE, SELFPAY ==
[2024-02-23] VITALS (8 sets, daily range): BP systolic 137–153; BP diastolic 73–84; PULSE 52–69; RESP 15–18; TEMP 36.4–36.7; O2SAT 95–98; BMI 26.5
--- NOTE | ~2024-02-23 | XR_ITS ---
EXAMINATION: XR CHEST CLINICAL INFORMATION: Dizziness and weakness COMPARISON: 12/07/2023 TECHNIQUE: 2 views of the chest were obtained. FINDINGS: Lungs are well-inflated and clear. Trachea is midline in position. No interstitial disease, consolidation or mass. No pleural effusion or pneumothorax. Cardiac silhouette and pulmonary vessels are normal in size. The mediastinum and garry have normal contour. Mild dextroscoliosis and spondylosis of the thoracic spine. XR/XR chest 2V IMPRESSION: Lungs have a normal appearance. No acute cardiopulmonary abnormality.
--- NOTE | 2024-02-23 11:39 | ED_ITS ---
HPI - Dizziness General Chief Complaint: General Medical Stated Complaint: dizziness, weakness, poor appetite Time Seen by Provider: 02/23/24 12:21 Source: patient, RN notes reviewed, old records reviewed and educational interpreter (mosotho) Mode of arrival: ambulatory Limitations: no limitations History of Present Illness ED Provider: ADDIE MOTTA PA-C HPI Narrative: 73 year old female with pmhx significant for HDL, hypothyroidism, HTN, DM, and hyperparathyroidism presents to the ED today for evaluation of generalized weakness and dizziness x3 days. Dizziness is described as a room spinning sensation. Worse with head movements. Admits to associated nausea without vomiting. Normal po intake. Denies fever, chills, headache, vision changes, sore throat, cough, hemoptysis, chest pain, sob, palpitations, calf pain, abd pain, flank pain, dysuria, hematuria. Denies trauma/ injury. Denies recent illness or sick contacts. No recent medication changes. Follows with her skip hoist operator regularly and has upcoming appointment with them next month. Reports taking all medications as prescribed without missing doses. Of note, patient reported an episode of abdominal pain yesterday which has since resolved. healthcare interpreter utilized throughout visit to communicate with patient. Related Data Home Medications ?Medication ?Instructions ?Recorded ?Confirmed acetaminophen 500 mg tablet 1,000 mg PO Q6H PRN pain 10/27/20 05/21/23 atorvastatin 40 mg tablet 40 mg PO DAILY 10/27/20 05/21/23 cetirizine 10 mg tablet 10 mg PO DAILY PRN Allergic 10/27/20 05/21/23 Symptoms clobetasol 0.05 % topical ointment g topical DAILY 10/27/20 05/21/23 montelukast 10 mg tablet 10 mg PO DAILY 10/27/20 05/21/23 multivitamin 1 tab PO DAILY 10/27/20 05/21/23 zolpidem 10 mg tablet 10 mg PO BEDTIME PRN Sleep 10/27/20 05/21/23 ascorbate calcium (vitamin C) 500 1 g PO Q6H 03/28/22 05/21/23 mg tablet cyanocobalamin (vitamin B-12) 1,000 mcg PO QAM 06/12/23 1,000 mcg tablet amlodipine 2.5 mg tablet 2.5 mg PO DAILY 12/11/23 budesonide-formoterol HFA 160 inhalation 12/11/23 mcg-4.5 mcg/actuation aerosol inhaler citalopram 20 mg tablet 20 mg PO DAILY 12/11/23 mirtazapine 45 mg disintegrating 45 mg PO BEDTIME 12/11/23 tablet nebulizers 02/07/24 romosozumab-aqqg 210 mg/2.34 mg subcut 02/07/24 mL(105 mg/1.17 mL x2)subcutaneous syringe (Evenity) Previous Rx's ?Medication ?Instructions ?Recorded calcium citrate 500 mg (2 x 250 mg calcium) PO BID 03/03/21 90 days #360 tabs cyclobenzaprine 10 mg tablet 10 mg PO TID PRN muscle spasm #14 11/15/21 tabs albuterol sulfate 2.5 mg/0.5 mL 5 mg inhalation Q4H PRN shortness 12/02/22 solution for nebulization of breath or wheezing #30 ea albuterol sulfate 90 mcg/actuation 2 inh inhalation Q4-6H PRN 06/21/23 breath activated powder inhaler shortness of breath or wheezing #1 ea meloxicam 15 mg tablet 15 mg PO DAILY #90 tabs 09/11/23 albuterol sulfate 2.5 mg/3 mL 2.5 mg (3 mL) inhalation Q4-6H PRN 12/07/23 (0.083 %) solution for nebulization shortness of breath or wheezing #90 mL prednisone 20 mg tablet 60 mg (3 x 20 mg) PO DAILY 5 days 12/07/23 #15 tabs famotidine 20 mg tablet (Pepcid) 20 mg PO BEDTIME #90 tabs 12/11/23 linaclotide 290 mcg capsule 290 mcg PO QAM #90 caps 12/11/23 (Linzess) pantoprazole 40 mg tablet,delayed 40 mg PO DAILY #90 tabs 12/11/23 release levothyroxine 50 mcg tablet 50 mcg PO DAILY #90 tabs 12/26/23 umeclidinium 62.5 mcg/actuation 1 inh inhalation DAILY 30 days #30 02/07/24 blister powder for inhalation ea (Incruse Ellipta) Allergies Allergy/AdvReac Type Severity Reaction Status Date / Time morphine [MORPHINE] Allergy Unknown RASH Verified 02/23/24 11:39 Review of Systems 2 Review of Systems: Constitutional: No fever, chills, fatigue, night sweats, weight changes, +general weakness ENT/Mouth: No ear pain, hearing loss, nasal congestion, sinus pain, rhinorrhea, sore throat Eyes: No eye pain, swelling, redness, vision changes, discharge Cardio: No chest pain, palpitations, WILLIAM, orthopnea, peripheral edema Pulm: No SOB, cough, sputum, wheezing, dyspnea, hemoptysis GI: No nausea, vomiting, hematemesis, abdominal pain, diarrhea, constipation, hematochezia, melena : No irregular bleeding, dysuria, frequency, urgency, hesitancy, hematuria, flank pain, urinary flow changes, urinary incontinence or retention MSK: No back pain, neck pain, joint pain, myalgias Skin: No lesions, rashes Neuro: No weakness, numbness, paresthesias, LOC, headache, +dizziness Psych: No anxiety/panic, depression, SI/HI, AH/VH All other systems reviewed and are negative. [facility] Past Medical History Attestation statement: The following information was validated with the patient. Source: old records reviewed and nursing notes reviewed Medical History Pulmonary nodules Allergies Kidney stone Back pain Arthritis HLD (hyperlipidemia) Hypothyroidism Diabetes Hypertension Asthma Hyperthyroidism Vitamin D deficiency Primary hyperparathyroidism Postablative hypothyroidism Surgical History Hx of colonoscopy History of esophagogastroduodenoscopy (EGD) Hx of endoscopy S/P subtotal parathyroidectomy History of carpal tunnel release of both wrists Hx of cataract removal with insertion of prosthetic lens Hx of lithotripsy Hx of cholecystectomy Hx of hysterectomy Family History Family History Father No problems noted. Mother No problems noted. Social History Social History Household Members: Family Are you a primary primary care sales representative to a significant other at home: No Do you presently have visiting nurse or other home services: No Alcohol intake: never Patient Tobacco Use Status: Never used Tobacco Physical Exam 2 Vital Signs: Vital Signs: Last Vital Signs Temp 98.1 F 02/23/24 16:38 Pulse 53 02/23/24 16:38 Resp 16 02/23/24 16:38 BP 140/76 H 02/23/24 16:38 Pulse Ox 98 02/23/24 16:38 O2 Del Method Room Air 02/23/24 15:14 BMI result Body Mass Index 26.5 slightly hypertensive, vitals otherwise wnl Const: General: cooperative, healthy appearing, comfortable and no acute distress Orientation/consciousness: patient oriented x3 Limitations: no limitations HEENT: Head: Yes normal to inspection, Yes No palpable skull fracture present, Yes normocephalic and Yes atraumatic Mouth: Normal oral and palatal mucosa present Throat: Yes posterior oropharynx normal Eyes: General: appearance normal, both eyes and all related structures C onjunctivae: conjunctivae normal Sclerae: sclerae normal Pupils: Equal, round and reactive pupils present Neck: Neck: Yes normal visual inspection, Yes full ROM and Yes no lymphadenopathy Thyroid: Thyroid normal Chest: Chest palpation & inspection: normal inspection of the chest Resp: Effort & Inspection: normal respiratory effort and able to speak in complete sentences Auscultation: clear to auscultation bilaterally Cardio: Other: no jvd or peripheral edema Rate: regular rate Rhythm: regular rhythm GI: Inspection: Yes normal to inspection Palpation (GI): Soft to palpation and nontender Auscultation: normal bowel sounds : General: Yes no CVA tenderness Back/Spine/Pelvis: Other: No midline spinous tenderness or step off deformity. No paraspinal muscle tenderness. Back: no CVA tenderness Skin: General skin exam: no rashes or lesions noted Neuro: General: patient oriented x3 Cranial nerves: Yes Equal, round and reactive pupils present Course Course Course Narrative: This is an RME: Additional HPI, ROS, PE not included below will be deferred to primary provider. RME assessment and note performed by: Daniela Ayers PA-C This is a [id number]bj[age]-female, with a hx of HLD, hypothyroidism, hypertension, diabets, hyperparathyroidism, presenting to the ER with complaints of weakness and dizziness x 3 days. She is having some abdominal pain and neck pain. She is also having nausea. Plan: Labs, EKG, viral swabs, UA Reevaluation(s) Reevaluation #1: 1306-- CBC without leukocytosis or left shift. No anemia. H&H stable. Chemistry without acute electrolyte abnormality requiring intervention. Troponin undetectable. Normal renal function, normal liver function. chest xray without infiltrate or consolidation. EKG showing normal sinus rhythm with a rate of 65 beats per minute, QT 452, QTC 470, no acute ischemic changes or ST elevations. 1630-- She has tested negative for covid/flu/rsv. Urine without infection or blood. TSH is elevated to 6.48 however free t4 is wnl. > on re-evaluation, patient reports symptom improvement with IVF. Ortho static vitals negative. she does not report symtoms with position changes. work up today is essentially unremarkable. she does have an appointment coming up with her skip hoist operator which I have encouraged her to keep for follow up.Patient has remained stable throughout ED visit today. Discussed worrisome signs and symptoms and when to return to the ED. All questions answered at this time. Patient is agreeable with disposition and stable for discharge. Medications Administered Discontinued Medications Generic Name Dose Route Start Last Admin Trade Name Freq PRN Reason Stop Dose Admin Sodium Chloride 1,000 mls @ 999 mls/hr 02/23/24 13:45 02/23/24 15:19 Ns IV 02/23/24 14:45 Infused .Q1H1M LYN Infusion Medical Decision Making Medical Decision Making [facility] Narrative: 73 year old female with pmhx significant for HDL, hypothyroidism, HTN, DM, and hyperparathyroidism presents to the ED today for evaluation of generalized weakness and dizziness x3 days. VSS. She is nontoxic appearing and in NAD. Lying comfortably on the exam bed. exam is nonfocal. cerebellum intact. ambulating with steady gait. perrla. aox3. skin w/d/i. moist mucous membranes. abd soft, ND/NT, no rebound or guarding. strength 5/5 intact throughout. RRR. lungs cta b/l. Differential diagnosis includes anemia, electrolyte abnormality, orthostatic hypotension, dehydration, vertigo, hypothyroid, pneumonia, uti, arrhythmia, medication SE/ reaction, ftt. Unlikely myxedema coma, CVA/TIA, cerebellar stroke, acs, pleural effusion. Plan for labs, ekg, cxr, viral serology, re-evaluation. Differential Diagnosis Differential Diagnoses: The differential diagnosis associated with the presentation includes as above. Lab Data [facility] Lab Attestation statement: I reviewed the patient's lab results. As above 02/23/24 11:52 02/23/24 11:52 Labs: Lab Results 02/23/24 02/23/24 Range/Units 11:52 13:53 WBC 6.6 (4.8-10.8) X10*3/uL RBC 4.35 (4.20-5.50) X10*6/uL Hgb 13.7 (12.0-16.0) g/dl Hct 41.5 (37.0-47.0) % MCV 95.4 (80.0-98.0) fL MCH 31.5 (27.0-33.0) pg MCHC 33.0 (31.0-35.0) g/dl RDW 13.6 (11.0-16.0) % Plt Count 249 (160-400) X10*3/uL MPV 9.6 (9.4-12.3) fL Immature Gran % (Auto) 0.2 (0.0-0.4) % Neut % (Auto) 69.2 (45-73) % Lymph % (Auto) 25.1 (20-40) % [place] % (Auto) 4.3 (2-11) % Eos % (Auto) 0.6 (0-4) % Baso % (Auto) 0.6 (0-2) % Lymph # (Auto) 1.7 (1.2-4.9) X10*3/uL [place] # (Auto) 0.3 (0.1-1.2) X10*3/uL Eos # (Auto) 0.0 (0.0-0.4) X10*3/uL Baso # (Auto) 0.0 (0.0-0.2) X10*3/uL Abs Immat Gran (auto) 0.01 (0.00-0.03) X10*3/uL Absolute Neuts (auto) 4.6 (2.0-8.3) x10*3/uL Absolute Nucleated RBC 0.000 (0.0-0.012) X10*3/uL Nucleated RBC % (auto) 0.0 (0.0-0.2) /100WBC Sodium 142 (135-145) mmol/L Potassium 4.3 (3.3-5.1) mmol/L Chloride 104 (96-108) mmol/L Carbon Dioxide 23 (22-29) mmol/L Anion Gap 19 (12-20) BUN 13 (9-16) mg/dL Creatinine 0.93 (0.5-1.4) mg/dL Estim Creat Clear Calc 41.1 Estimated GFR 59 Random Glucose 75 (60-115) mg/dL Calcium 9.4 (8.4-10.2) mg/dL Magnesium 2.2 (1.6-2.6) mg/dL Total Bilirubin 0.8 (0.0-1.0) mg/dL Direct Bilirubin 0.4 (0.0-0.5) mg/dL AST 27 (5-31) U/L ALT 27 (0-31) U/L Alkaline Phosphatase 71 (39-117) U/L Troponin I High Sens < 2.7 (<3.5-17.0) ng/L Total Protein 8.3 H (6.5-8.0) g/dL Albumin 4.7 (3.5-5.0) g/dL Lipase 53 (8-78) U/L TSH 6.48 H (0.32-4.0) uIU/mL Free T4 0.86 (0.71-1.85) ng/dL Urine Color Yellow Urine Appearance Clear Urine pH 5.5 (5.0-9.0) Ur Specific [place] 1.020 (1.005-1.025) Urine Protein Negative (Neg-Trace) mg/dL Urine Glucose (UA) Negative (Negative) mg/dL Urine Ketones 80 (Negative) mg/dL Urine Blood Negative (Negative) Urine Nitrite Negative (Negative) Ur Leukocyte Esterase Trace H (Negative) Urine RBC 0-2 (0-2) /HPF Urine WBC 0-5 (0-5) /HPF Ur Squamous Epith Cells 0-2 (0-2) /HPF Urine Bacteria None Seen (None Seen) Hyaline Casts 0-2 (0-2) /LPF Influenza Type A (PCR) NEGATIVE (Negative) Influenza Type B (PCR) NEGATIVE (Negative) RSV RNA Qual (PCR) NEGATIVE (Negative) SARS-CoV-2 RNA (RT-PCR) NEGATIVE (Negative) Independent Interpretation I performed an independent interpretation of an: EKG and Plain X-Ray Interpretation: EKG showing normal sinus rhythm with a rate of 65 beats per minute, QT 452, QTC 470, no acute ischemic changes or ST elevations. Chest x-ray without consolidation or infiltrate, agree with radiologist's interpretation. Radiology Impression Discussion of test interpretation with radiology: I have reviewed the radiologist's reading. Radiologist Impression: EXAMINATION: XR CHEST CLINICAL INFORMATION: Dizziness and weakness COMPARISON: 12/07/2023 TECHNIQUE: 2 views of the chest were obtained. FINDINGS: Lungs are well-inflated and clear. Trachea is midline in position. No interstitial disease, consolidation or mass. No pleural effusion or pneumothorax. Cardiac silhouette and pulmonary vessels are normal in size. The mediastinum and garry have normal contour. Mild dextroscoliosis and spondylosis of the thoracic spine. XR/XR chest 2V IMPRESSION: Lungs have a normal appearance. No acute cardiopulmonary abnormality. Tests considered The following testing was considered but not selected: I considered ordering imaging of abd/pelvis however abdominal pain resolved with unremarkable lab work up, not indicated at this time. no concern for acute abdomen. Social Determinants Patient?s care significantly limited by Social Determinants of Health including: Other Social Determinant of Health Discharge Plan Discharge Clinical Impression: Dizziness Patient Disposition: Home, Self-Care Instructions: Lightheadedness (ED), Dizziness (ED) Additional Instructions: Your labs today are reassuring. Your thyroid stimulating hormone was noted to be elevated however your free T4 levels were within normal limits. Please follow-up with your skip hoist operator as scheduled this month. Your urine is negative for infection. Your chest x-ray is normal. Your EKG is unremarkable. Make sure you are getting enough oral hydration throughout the day. Rise slowly from seated positions to ensure your blood pressure acclimates. Please follow-up with your primary care provider within the next 2 weeks. Return with new or worsening symptoms. In the case of an emergency call 911. Prescriptions: No Action meloxicam 15 mg tablet 15 mg PO DAILY Qty: 90 0RF levothyroxine 50 mcg tablet 50 mcg PO DAILY Qty: 90 3RF cyclobenzaprine 10 mg tablet 10 mg PO TID PRN (Reason: muscle spasm) Qty: 14 0RF albuterol sulfate 2.5 mg/0.5 mL solution for nebulization 5 mg inhalation Q4H PRN (Reason: shortness of breath or wheezing) Qty: 30 0RF albuterol sulfate 90 mcg/actuation aerosol powdr breath activated 2 inh inhalation Q4-6H PRN (Reason: shortness of breath or wheezing) Qty: 1 0RF albuterol sulfate 2.5 mg /3 mL (0.083 %) solution for nebulization 2.5 mg inhalation Q4-6H PRN (Reason: shortness of breath or wheezing) Qty: 90 0RF prednisone 20 mg tablet 60 mg PO DAILY 5 Days Qty: 15 0RF zolpidem 10 mg tablet 10 mg PO BEDTIME PRN (Reason: Sleep) atorvastatin 40 mg tablet 40 mg PO DAILY montelukast 10 mg tablet 10 mg PO DAILY cetirizine 10 mg tablet 10 mg PO DAILY PRN (Reason: Allergic Symptoms) multivitamin Tablet 1 tab PO DAILY acetaminophen 500 mg tablet 1,000 mg PO Q6H PRN (Reason: pain) clobetasol 0.05 % ointment topical DAILY calcium citrate 250 mg calcium tablet 500 mg PO BID 90 Days Qty: 360 1RF ascorbate calcium (vitamin C) 500 mg tablet 1 g PO Q6H citalopram 20 mg tablet 20 mg PO DAILY mirtazapine 45 mg tablet,disintegrating 45 mg PO BEDTIME budesonide-formoterol 160-4.5 mcg/actuation HFA aerosol inhaler inhalation amlodipine 2.5 mg tablet 2.5 mg PO DAILY famotidine [Pepcid] 20 mg tablet 20 mg PO BEDTIME Qty: 90 3RF Linzess 290 mcg capsule 290 mcg PO QAM Qty: 90 4RF pantoprazole 40 mg tablet,delayed release (DR/EC) 40 mg PO DAILY Qty: 90 2RF Rx Instructions: libby un comprimido media hora antes del desayuno (DME) nebulizers [facility] See Rx Instructions .ROUTE Rx Instructions: As directed Evenity 210mg/2.34mL ( 105mg/1.17mLx2) syringe subcut Incruse Ellipta 62.5 mcg/actuation blister with device 1 inh inhalation DAILY 30 Days Qty: 30 11RF cyanocobalamin (vitamin B-12) 1,000 mcg tablet 1,000 mcg PO QAM Interventions: ED Discharge Assessment Last Done: 02/23/24 16:38 Discharge Date/Time: 02/23/24 16:40 Print Language: Cymraes
--- NOTE | 2024-02-23 11:40 | ECG_ITS ---
Test Reason : DIZZINESS Blood Pressure : / mmHG Vent. Rate : 065 BPM Atrial Rate : 065 BPM P-R Int : 128 ms QRS Dur : 088 ms QT Int : 452 ms P-R-T Axes : 016 -22 002 degrees QTc Int : 470 ms Normal sinus rhythm Moderate voltage criteria for LVH, may be normal variant ( R in aVL , Fede product ) Nonspecific ST and T wave abnormality Borderline ECG When compared with ECG of 24-JUN-2023 17:55, Inverted T waves have replaced nonspecific T wave abnormality in Inferior leads Referred By: Daniela Ayers Electronically Signed By:MELE OREILLY
[2024-02-23 11:56] LABS: MANUAL DIFF FLAG NO
[2024-02-23 11:59] LABS: Basophils Percent Auto 0.6 % (0-2); Eosinophils Percent Auto 0.6 % (0-4); Hematocrit 41.5 % (37.0-47.0); Hemoglobin 13.7 g/dl (12.0-16.0); Imm Gran Abs Auto 0.01 X10*3/uL (0.00-0.03); Imm Gran Pct Auto 0.2 % (0.0-0.4); Lymphocytes Absolute Auto 1.7 X10*3/uL (1.2-4.9); Lymphocytes Percent Auto 25.1 % (20-40); Mean Corpuscular Hemoglobin 31.5 pg (27.0-33.0); Mean Corpuscular Volume 95.4 fL (80.0-98.0); Mean Platelet Volume 9.6 fL (9.4-12.3); Monocytes Absolute Auto 0.3 X10*3/uL (0.1-1.2); Monocytes Percent Auto 4.3 % (2-11); Neutrophils Absolute Auto 4.6 x10*3/uL (2.0-8.3); Neutrophils Percent Auto 69.2 % (45-73); Platelet Count 249 X10*3/uL (160-400); Red Blood Count 4.35 X10*6/uL (4.20-5.50); Red Cell Distribution Width 13.6 % (11.0-16.0); White Blood Count 6.6 X10*3/uL (4.8-10.8)
[2024-02-23 12:26] LABS: Alanine Aminotransferase 27 U/L (0-31); Albumin Level 4.7 g/dL (3.5-5.0); Alkaline Phosphatase 71 U/L (39-117); Anion Gap 19 (12-20); Aspartate Amino Transferase 27 U/L (5-31); Bilirubin Direct 0.4 mg/dL (0.0-0.5); Bilirubin Total 0.8 mg/dL (0.0-1.0); Blood Urea Nitrogen 13 mg/dL (9-16); Calcium 9.4 mg/dL (8.4-10.2); Carbon Dioxide 23 mmol/L (22-29); Chloride 104 mmol/L (96-108); Creatinine Clr Calc Pharmacy 41.1; Estimated Glomerular Filt Rate 59; Glucose Random 75 mg/dL (60-115); Lipase 53 U/L (8-78); Magnesium 2.2 mg/dL (1.6-2.6); Potassium 4.3 mmol/L (3.3-5.1); Sodium 142 mmol/L (135-145); Total Protein 8.3 g/dL (6.5-8.0); Troponin-I High Sensitivity < 2.7 ng/L (<3.5-17.0)
[2024-02-23 12:35] LABS: Influenza A PCR NEGATIVE (Negative); Influenza B PCR NEGATIVE (Negative); Resp Syncy Virus RNA Qual PCR NEGATIVE (Negative); SARS COV2 PCR INHOUSE NEGATIVE (Negative)
[2024-02-23] MEDS: 0.9 % Sodium Chloride 1,000 ML 999 ML IV (14:06)
[2024-02-23 14:08] LABS: Appearance Urine Clear; Color Urine Yellow; Glucose Urine UA Negative (Negative); Leukocyte Esterase Urine Trace (Negative); Nitrite Urine Negative (Negative); PH 5.5 (5.0-9.0); UMIC TRIGGER UACC YES; Urine Blood Negative (Negative); Urine Ketones 80 mg/dL (Negative); Urine Protein Negative (Neg-Trace)
[2024-02-23 14:13] LABS: Bacteria Urine None Seen (None Seen); Hyaline Casts Urine 0-2 /LPF (0-2); RBC Urine 0-2 /HPF (0-2); Squamous Epithelial Cell Urine 0-2 /HPF (0-2); WBC Urine 0-5 /HPF (0-5)
[2024-02-23 14:46] LABS: TSH reflex Free T4 6.48 uIU/mL (0.32-4.0)
[2024-02-23 15:26] LABS: Free T4 (Free Thyroxine) 0.86 ng/dL (0.71-1.85)
== END 2024-02-23 16:40 | disposition home or self-care (01) ==
PROVIDERS: Physician Assistant Medical; Emergency Provider Emergency Medicine; PCP Registered Nurse
DX: R42 Dizziness and giddiness (principal); R53.1 Weakness; E11.9 Type 2 diabetes mellitus without complications; I10 Essential (primary) hypertension; E78.5 Hyperlipidemia, unspecified; J45.909 Unspecified asthma, uncomplicated; Z79.02 Long term (current) use of antithrombotics/antiplatelets; Z79.899 Other long term (current) drug therapy; Z03.818 Encounter for observation for suspected exposure to other biological agents ruled out
CPT/HCPCS: 0241U; 36415; 71046; 80048; 80076; 81001; 83690; 83735; 84439; 84443; 84484; 85025; 93005; 96360; 99284; 99285

== ENCOUNTER → 2024-02-23 11:40 | Outpatient (BNV) | payer MEDICARE, SELFPAY | PROVIDERS: Emergency Provider Emergency Medicine; PCP Registered Nurse; Visit Provider Internal Medicine | DX: R42 Dizziness and giddiness (principal) | CPT/HCPCS: 93010 ==

== ENCOUNTER 2024-02-27 08:25 | Outpatient (AMB) | payer MEDICARE, SELFPAY ==
--- NOTE | 2024-02-27 08:42 | AM.OFFVISNUR ---
Intake Intake Visit Reasons: Evenity Allergies morphine [MORPHINE] Allergy (Unknown, Verified 02/23/24 11:39) RASH Office Meds romosozumab-aqqg 210 mg/2.34 mL(105 mg/1.17 mL x2)subcutaneous syringe Performing Provider: Pedro Luis Molina MD Performing Location: [facility] [place] Endocrinology Administered by: Nicky España LPN on 02/27/24 08:42 Dose Route Admin Location Dispensed Lot Number Expiration Date [facility] [employer] 210 mg subcut Bilateral lower abdomen 2.34 mL [id number] 07/24/26 AMGEN Coding Assessment & Plan Assessment & Plan Orders: Orders AMB Romosozumab Injection Patient Supplied Today M81.0 - Age-related osteoporosis without current pathological fracture Medications: New romosozumab-aqqg 210 mg (2.34 mL) subcut ONCE 2.34 mL 0RF M81.0 - Age-related osteoporosis without current pathological fracture
== END 2024-02-27 08:40 | disposition home or self-care (01) ==
PROVIDERS: PCP Registered Nurse; Visit Provider Internal Medicine Endocrinology, Diabetes & Metabolism
DX: M81.0 Age-related osteoporosis without current pathological fracture (principal)

== ENCOUNTER → 2024-02-27 08:25 | Outpatient (BNVA) | payer MEDICARE, SELFPAY | PROVIDERS: PCP Registered Nurse; Visit Provider Internal Medicine Endocrinology, Diabetes & Metabolism | DX: M81.0 Age-related osteoporosis without current pathological fracture (principal) | CPT/HCPCS: 96372; J3111 ==

== ENCOUNTER 2024-03-19 10:21 | Outpatient (AMB) | payer MEDICARE, SELFPAY ==
--- NOTE | 2024-03-19 10:33 | A.OFFVIS_ITS ---
Vital Signs 03/19/24 10:35 Height 4 ft 11 in Weight 132 lb 4.438 oz BMI 26.7 BP 132/80 Blood Pressure Location Rt brachial Position Sitting Pulse 80 Pulse Source Pulse Oximeter Intake Visit Reasons: F/U Osteoporosis-confirmed Intake Note: Patient present today for Osteoporosis follow up visit. Mill Dresser Required: Yes Mill Dresser Language: Haitian Accompanied by: Grand Child Allergies morphine [MORPHINE] Allergy (Unknown, Verified 03/19/24 10:46) RASH HPI Comments Details: 73 YO Female with a PMHx Osteoporosis due to Hyperparathyroidism, now S/P 3.5 gland parathyroidectomy, as well as hyperthyroidism who is seen in F/U. She has a history of Osteoporosis with prior treatment with oral bisophosphonates as well as Prolia. She failed treatment with oral bisophosphonates and was switched to Prolia in April 2019. It appears she had 2 doses, the second April 2020. She was then diagnosed with primary hyperparathyroidism and underwent a subtotal parathyroidectomy (3.5 gland resection) with only a remnant of the R inferior gland remaining. This was completed 02/15/2021. Intraoperative PTH declined from 92 to 22, indicating cure. She does report prior fragility fracture of her R wrist and Clavicle. 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 She remains on Levothyroxine 50 mcg PO daily with TSH at goal. She reports anxiety, but otherwise states she feels well. She has no other complaints today. DEXA: 05/11/2023 FINDINGS: LEFT FEMUR, NECK: Current: BMD 0.655 g/cm2, Z-score -0.7, T-score -2.8, osteoporosis. Prior: BMD 0.687 g/cm2. Baseline: BMD 0.707 g/cm2. LEFT FEMUR, TOTAL: Current: BMD 0.695 g/cm2, Z-score -0.6, T-score -2.5, osteoporosis, 7.6% decrease from previous, 15.8% decrease from baseline (<5% change is not significant). Prior: BMD 0.752 g/cm2. Baseline: BMD 0.825 g/cm2. AP SPINE L1-L3 (excluding L4): The data of L1-L4 has been changed to exclude the L4 vertebral body, because degenerative sclerosis at this level may cause overestimation of lumbar spine density. Current: BMD 0.660 g/cm2, Z-score -2.3, T-score -4.3, osteoporosis, 11.2% decrease from previous, 16.1% decrease from baseline (<5% change is not significant). Prior: BMD 0.743 g/cm2. Baseline: BMD 0.787 g/cm2. LEFT FOREARM RADIUS 33%: BMD 0.596 g/cm2, Z-score -1.0, T-score -3.2, osteoporosis, 1.7% increase from baseline (<5% change is not significant). Baseline: BMD 0.586 g/cm2. IDENTIFIED RISK FACTORS: Early menopause, secondary osteoporosis, hysterectomy, bilateral oophorectomy, height loss, history of fracture (adult), hyperparathyroidism, low calcium intake. Labs: Laboratory Tests 03/22/23 03/22/23 15:38 15:38 Creatinine 0.89 Estimated GFR > 60 Calcium 10.1 D Albumin 4.4 TSH 1.43 Free T4 0.89 PTH Intact 55 Calcium (PTH Intact) 9.6 Taking calcium and vitamin D. and Evenity started in 12/2023, No fx since last visit [facility] Medical History Pulmonary nodules Allergies Kidney stone Back pain Arthritis HLD (hyperlipidemia) Hypothyroidism Diabetes Hypertension Asthma Hyperthyroidism Vitamin D deficiency Primary hyperparathyroidism Postablative hypothyroidism Surgical History (Updated 03/19/24 @ 10:48 by MADELEINE Alford) History of craniotomy Hx of colonoscopy History of esophagogastroduodenoscopy (EGD) Hx of endoscopy S/P subtotal parathyroidectomy History of carpal tunnel release of both wrists Hx of cataract removal with insertion of prosthetic lens Hx of lithotripsy Hx of cholecystectomy Hx of hysterectomy Family History Father No problems noted. Mother No problems noted. Social History Household Members: Family Are you a primary manager intensive care to a significant other at home: No Do you presently have visiting nurse or other home services: No Alcohol intake: never Patient Tobacco Use Status: Never used Tobacco Physical Exam Vital Signs: Last Vital Signs Pulse 80 03/19/24 10:35 BP 132/80 03/19/24 10:35 BMI result Body Mass Index 26.7 Assessment & Plan Assessment & Plan (1) Osteoporosis: Code(s): M81.0 - Age-related osteoporosis without current pathological fracture Category: Medical Qualifiers: Osteoporosis type: age-related Presence of current pathological fracture: without current pathological fracture Qualified Code(s): M81.0 - Age- related osteoporosis without current pathological fracture Plan: 73-year-old female with a history of severe osteoporosis and primary hyperparathyroidism status post parathyroidectomy with normalization of PTH and calcium. Secondary workup was negative. Patient has received oral bisphosphonate, Prolia and more recently Reclast in the past. She had fragility fractures of right wrist and clavicle in the past. She is currently on Evenity Q monthly started in 12/2023 Plan is to continue Evenity for full 12 months and then to possibly transition to Prolia (2) Postablative hypothyroidism: Code(s): E89.0 - Postprocedural hypothyroidism Category: Medical Plan: Currently on 75 mcg levothyroxine with dose increased about 4 weeks ago Will recheck TSH and free T4 in 2 weeks' time and adjust levothyroxine accordingly Orders: Orders Free T4 (Free Thyroxine) 2 Weeks E89.0 - Postprocedural hypothyroidism Thyroid Stimulating Hormone 2 Weeks E89.0 - Postprocedural hypothyroidism Medications: New levothyroxine 75 mcg PO DAILY 30 tabs 5RF Discontinued levothyroxine Discontinued Reason: Doctor's Order 50 mcg PO DAILY 90 tabs 3RF E89.0 - Postprocedural hypothyroidism Coding Level of Care Code Est Pt Level 3 (90945) Diagnoses Age-related osteoporosis without current pathological fracture M81.0 Osteoporosis type: age-related Presence of current pathological fracture: without current pathological fracture Postablative hypothyroidism E89.0
[2024-03-19 10:35] VITALS: BP 132/80; PULSE 80; BMI 26.7
== END 2024-03-19 11:05 | disposition home or self-care (01) ==
PROVIDERS: PCP Registered Nurse; Visit Provider Internal Medicine Endocrinology, Diabetes & Metabolism
DX: M81.0 Age-related osteoporosis without current pathological fracture (principal); E89.0 Postprocedural hypothyroidism
CPT/HCPCS: 99213

== ENCOUNTER → 2024-03-19 10:21 | Outpatient (BNVA) | payer MEDICARE, SELFPAY | PROVIDERS: PCP Registered Nurse; Visit Provider Internal Medicine Endocrinology, Diabetes & Metabolism | DX: M81.0 Age-related osteoporosis without current pathological fracture (principal); E89.0 Postprocedural hypothyroidism | CPT/HCPCS: 99212 ==

== ENCOUNTER 2024-03-26 08:33 | Outpatient (AMB) | payer MEDICARE, SELFPAY ==
--- NOTE | 2024-03-26 09:24 | AM.OFFVISNUR ---
Intake Visit Reasons: Evenity Allergies morphine [MORPHINE] Allergy (Unknown, Verified 03/19/24 10:46) RASH Office Meds romosozumab-aqqg 210 mg/2.34 mL(105 mg/1.17 mL x2)subcutaneous syringe Performing Provider: Pedro Luis Molina MD Performing Location: [facility] Endocrinology Administered by: Nicky España LPN on 03/26/24 09:24 Dose Route Admin Location Dispensed Lot Number Expiration Date [facility] Block Captain 210 mg subcut bilateral upper arms 2.34 mL [id number] 03/23/24 AMGEN Assessment & Plan Assessment & Plan Orders: Orders AMB Romosozumab Injection Patient Supplied Today M81.0 - Age-related osteoporosis without current pathological fracture Medications: New romosozumab-aqqg 210 mg (2.34 mL) subcut ONCE 2.34 mL 0RF M81.0 - Age-related osteoporosis without current pathological fracture
== END 2024-03-26 09:37 | disposition home or self-care (01) ==
PROVIDERS: PCP Registered Nurse; Visit Provider Internal Medicine Endocrinology, Diabetes & Metabolism
DX: M81.0 Age-related osteoporosis without current pathological fracture (principal)

== ENCOUNTER → 2024-03-26 08:33 | Outpatient (BNVA) | payer MEDICARE, SELFPAY | PROVIDERS: PCP Registered Nurse; Visit Provider Internal Medicine Endocrinology, Diabetes & Metabolism | DX: M81.0 Age-related osteoporosis without current pathological fracture (principal) | CPT/HCPCS: 96372; J3111 ==

== ENCOUNTER 2024-04-29 17:54 | Emergency (ER) | payer MEDICARE, SELFPAY ==
--- NOTE | ~2024-04-29 | XR_ITS ---
EXAMINATION: XR CHEST CLINICAL INFORMATION: Wheezing. COMPARISON: None available. TECHNIQUE: 2 views of the chest were obtained. FINDINGS: The lungs are expanded but clear of acute process. Heart size is normal. There is mild prominence of pulmonary vascularity but no congestion is suspected. There is no pleural effusion. No gross bony abnormality. XR/XR chest 2V IMPRESSION: Mild prominence of pulmonary vascularity without congestion.
[2024-04-29 18:13] VITALS: BP 129/71; PULSE 64; RESP 18; TEMP 36.8; O2SAT 96; BMI 27.9
--- NOTE | 2024-04-29 18:16 | ED_ITS ---
HPI - General Adult General Chief complaint: Asthma Stated complaint: Asthma Time Seen by Provider: 04/29/24 22:20 Mode of arrival: ambulatory Limitations: no limitations History of Present Illness ED Provider: Dr. Mckinnon HPI narrative: Patient with increased wheezing over the past 2 days, states that despite having treatments she feels worse. Onset (ago): day(s) Severity: mild Related Data Home Medications ?Medication ?Instructions ?Recorded ?Confirmed acetaminophen 500 mg tablet 1,000 mg PO Q6H PRN pain 10/27/20 05/21/23 atorvastatin 40 mg tablet 40 mg PO DAILY 10/27/20 05/21/23 cetirizine 10 mg tablet 10 mg PO DAILY PRN Allergic 10/27/20 05/21/23 Symptoms clobetasol 0.05 % topical ointment g topical DAILY 10/27/20 05/21/23 montelukast 10 mg tablet 10 mg PO DAILY 10/27/20 05/21/23 multivitamin 1 tab PO DAILY 10/27/20 05/21/23 zolpidem 10 mg tablet 10 mg PO BEDTIME PRN Sleep 10/27/20 05/21/23 ascorbate calcium (vitamin C) 500 1 g PO Q6H 03/28/22 05/21/23 mg tablet cyanocobalamin (vitamin B-12) 1,000 mcg PO QAM 06/12/23 1,000 mcg tablet amlodipine 2.5 mg tablet 2.5 mg PO DAILY 12/11/23 budesonide-formoterol HFA 160 inhalation 12/11/23 mcg-4.5 mcg/actuation aerosol inhaler citalopram 20 mg tablet 20 mg PO DAILY 12/11/23 mirtazapine 45 mg disintegrating 45 mg PO BEDTIME 12/11/23 tablet nebulizers 02/07/24 romosozumab-aqqg 210 mg/2.34 mg subcut 02/07/24 mL(105 mg/1.17 mL x2)subcutaneous syringe (Evenity) Previous Rx's ?Medication ?Instructions ?Recorded calcium citrate 500 mg (2 x 250 mg calcium) PO BID 03/03/21 90 days #360 tabs cyclobenzaprine 10 mg tablet 10 mg PO TID PRN muscle spasm #14 11/15/21 tabs albuterol sulfate 2.5 mg/0.5 mL 5 mg inhalation Q4H PRN shortness 12/02/22 solution for nebulization of breath or wheezing #30 ea albuterol sulfate 90 mcg/actuation 2 inh inhalation Q4-6H PRN 06/21/23 breath activated powder inhaler shortness of breath or wheezing #1 ea meloxicam 15 mg tablet 15 mg PO DAILY #90 tabs 09/11/23 albuterol sulfate 2.5 mg/3 mL 2.5 mg (3 mL) inhalation Q4-6H PRN 12/07/23 (0.083 %) solution for nebulization shortness of breath or wheezing #90 mL prednisone 20 mg tablet 60 mg (3 x 20 mg) PO DAILY 5 days 12/07/23 #15 tabs famotidine 20 mg tablet (Pepcid) 20 mg PO BEDTIME #90 tabs 12/11/23 linaclotide 290 mcg capsule 290 mcg PO QAM #90 caps 12/11/23 (Linzess) pantoprazole 40 mg tablet,delayed 40 mg PO DAILY #90 tabs 12/11/23 release umeclidinium 62.5 mcg/actuation 1 inh inhalation DAILY 30 days #30 02/07/24 blister powder for inhalation ea (Incruse Ellipta) levothyroxine 75 mcg tablet 75 mcg PO DAILY #30 tabs 03/19/24 prednisone 20 mg tablet 60 mg (3 x 20 mg) PO DAILY #12 tabs 04/29/24 Allergies Allergy/AdvReac Type Severity Reaction Status Date / Time morphine [MORPHINE] Allergy Unknown RASH Verified 04/29/24 18:17 Review of Systems 2 Review of Systems: Yes all other systems are reviewed and are negative Neurologic: Denies Sensory deficit (Neuro) [facility] Past Medical History Medical History Pulmonary nodules Allergies Kidney stone Back pain Arthritis HLD (hyperlipidemia) Hypothyroidism Diabetes Hypertension Asthma Hyperthyroidism Vitamin D deficiency Primary hyperparathyroidism Postablative hypothyroidism Surgical History History of craniotomy Hx of colonoscopy History of esophagogastroduodenoscopy (EGD) Hx of endoscopy S/P subtotal parathyroidectomy History of carpal tunnel release of both wrists Hx of cataract removal with insertion of prosthetic lens Hx of lithotripsy Hx of cholecystectomy Hx of hysterectomy Family History Family History Father No problems noted. Mother No problems noted. Social History Social History Household Members: Family Are you a primary child care attendant school to a significant other at home: No Do you presently have visiting nurse or other home services: No Alcohol intake: never Patient Tobacco Use Status: Never used Tobacco Advance Directives: No Advance Directives Information Provided: No Do you have a plan to hurt others: No Plan Physical Exam ED Vital Signs: Vital Signs - 24 hr 04/29/24 18:13 04/29/24 22:31 Temperature 98.2 F Pulse Rate 64 56 Respiratory Rate 18 16 Blood Pressure 129/71 Pulse Oximetry 96 Oxygen Delivery Method Room Air BMI result Body Mass Index 27.9 Const General: healthy appearing Nutritional Appearance: average body habitus Orientation/consciousness: oriented to person and patient oriented x3 Limitations: no limitations HENMT Head: Yes normal to inspection Ears: external ears normal General nose exam: Normal external nose present Mouth: Normal oral and palatal mucosa present and oropharynx normal Throat: Yes posterior oropharynx normal Eyes General: appearance normal, both eyes and all related structures Neck Neck: Yes normal visual inspection Chest Chest palpation & inspection: normal inspection of the chest Resp Other: diffuse distant wheezing, no increased work of breathing Cardio Jugular venous distension: no JVD Rate: regular rate Rhythm: regular rhythm Heart sounds: S1 normal heart sound present and S2 normal heart sound present GI Inspection: Yes normal to inspection Palpation (GI): Soft to palpation, nontender and No hepatosplenomegaly present Auscultation: normal bowel sounds General: Yes no CVA tenderness Back/Spine/Pelvis Back: no CVA tenderness Skin General skin exam: no rashes or lesions noted Neuro General: oriented to person and patient oriented x3 Cranial nerves: Yes CN's II-XII intact bilaterally Motor exam (neuro): 5/5 motor strength present throughout Sensory Exam: No Sensory deficit (Neuro) Extrem General: Yes normal to inspection Psych Appearance: grossly normal Course Course Course Narrative: This is a Rapid Medical Examination (RME) performed by Danna Woodruff PA-C in triage. Full HPI, ROS, assessment and treatment plan per primary provider in the Main ED. 73 yo female with pmhx significant for HDL, hypothyroidism, HTN, DM, and hyperparathyroidism, asthma here for eval of chest tightness w/ deep breathing and cough productive of yellow sputum. using albuterol pump and neb at home w/o relief. + inspiratory and expiratory wheezes throughout. no increased effort of breathing. no tripoding. Plan: labs, ekg, cxr, ed bronch protocol ordered Reevaluation(s) Reevaluation #1: Will start 60mg of prednisone and dc home Time: 22:33 Medications Administered Discontinued Medications Generic Name Dose Route Start Last Admin Trade Name Freq PRN Reason Stop Dose Admin Albuterol/Ipratropium 3 ml 04/29/24 22:28 04/29/24 22:31 Albuterol/Iprat 2.5/0.5mg 3 Ml Ampul.Neb INHALE 04/29/24 22:29 3 ml ONCE ONE Administration Medical Decision Making Differential Diagnosis Differential Diagnoses: The differential diagnosis associated with the presentation includes (pneumonia, asthma, bronchitis) Admission/Observation Consideration of admission/observation: Escalation of care including admission/observation considered (upon arrival patient was considered for admission) Lab Data 04/29/24 18:34 04/29/24 18:34 Labs: Lab Results 04/29/24 04/29/24 Range/Units 18:34 20:24 WBC 7.6 (4.8-10.8) X10*3/uL RBC 3.68 L (4.20-5.50) X10*6/uL Hgb 11.7 L (12.0-16.0) g/dl Hct 36.0 L (37.0-47.0) % MCV 97.8 (80.0-98.0) fL MCH 31.8 (27.0-33.0) pg MCHC 32.5 (31.0-35.0) g/dl RDW 15.3 (11.0-16.0) % Plt Count 223 (160-400) X10*3/uL MPV 10.0 (9.4-12.3) fL Immature Gran % (Auto) 0.4 (0.0-0.4) % Neut % (Auto) 63.7 (45-73) % Lymph % (Auto) 20.6 (20-40) % [place] % (Auto) 8.9 (2-11) % Eos % (Auto) 6.0 H (0-4) % Baso % (Auto) 0.4 (0-2) % Lymph # (Auto) 1.6 (1.2-4.9) X10*3/uL [place] # (Auto) 0.7 (0.1-1.2) X10*3/uL Eos # (Auto) 0.5 H (0.0-0.4) X10*3/uL Baso # (Auto) 0.0 (0.0-0.2) X10*3/uL Abs Immat Gran (auto) 0.03 (0.00-0.03) X10*3/uL Absolute Neuts (auto) 4.8 (2.0-8.3) x10*3/uL Absolute Nucleated RBC 0.000 (0.0-0.012) X10*3/uL Nucleated RBC % (auto) 0.0 (0.0-0.2) /100WBC Sodium 147 H (135-145) mmol/L Potassium 4.9 (3.3-5.1) mmol/L Chloride 108 (96-108) mmol/L Carbon Dioxide 28 (22-29) mmol/L Anion Gap 16 (12-20) BUN 21 H (9-16) mg/dL Creatinine 1.13 (0.5-1.4) mg/dL Estim Creat Clear Calc 34.6 Estimated GFR 47 Random Glucose 110 (60-115) mg/dL Calcium 9.5 (8.4-10.2) mg/dL Magnesium 1.9 (1.6-2.6) mg/dL Total Bilirubin 0.4 (0.0-1.0) mg/dL AST 23 (5-31) U/L ALT 31 (0-31) U/L Alkaline Phosphatase 78 (39-117) U/L Troponin I High Sens < 2.7 (<3.5-17.0) ng/L Total Protein 6.9 (6.5-8.0) g/dL Albumin 3.9 (3.5-5.0) g/dL Influenza Type A (PCR) NEGATIVE (Negative) Influenza Type B (PCR) NEGATIVE (Negative) RSV RNA Qual (PCR) NEGATIVE (Negative) SARS-CoV-2 RNA (RT-PCR) NEGATIVE (Negative) S. pyogenes GrpA GISSELLE Negative (Negative) Independent Interpretation I performed an independent interpretation of an: EKG (normal sinus 70, no st or twave changes) and Plain X-Ray (CXR: no evidence of infiltrate) Prescription Management I considered prescription management with: Antibiotic (no pneumonia seen on xray) Chronic Conditions Patient?s care impacted by: Hypertension and Other (asthma) Social Determinants Patient?s care significantly limited by Social Determinants of Health including: Low income Discharge Plan Discharge Clinical Impression: Asthma with acute exacerbation Patient Disposition: Home, Self-Care Instructions: Asthma (ED) Prescriptions: New prednisone 20 mg tablet 60 mg PO DAILY Qty: 12 0RF No Action meloxicam 15 mg tablet 15 mg PO DAILY Qty: 90 0RF cyclobenzaprine 10 mg tablet 10 mg PO TID PRN (Reason: muscle spasm) Qty: 14 0RF albuterol sulfate 2.5 mg/0.5 mL solution for nebulization 5 mg inhalation Q4H PRN (Reason: shortness of breath or wheezing) Qty: 30 0RF albuterol sulfate 90 mcg/actuation aerosol powdr breath activated 2 inh inhalation Q4-6H PRN (Reason: shortness of breath or wheezing) Qty: 1 0RF albuterol sulfate 2.5 mg /3 mL (0.083 %) solution for nebulization 2.5 mg inhalation Q4-6H PRN (Reason: shortness of breath or wheezing) Qty: 90 0RF prednisone 20 mg tablet 60 mg PO DAILY 5 Days Qty: 15 0RF zolpidem 10 mg tablet 10 mg PO BEDTIME PRN (Reason: Sleep) atorvastatin 40 mg tablet 40 mg PO DAILY montelukast 10 mg tablet 10 mg PO DAILY cetirizine 10 mg tablet 10 mg PO DAILY PRN (Reason: Allergic Symptoms) multivitamin Tablet 1 tab PO DAILY acetaminophen 500 mg tablet 1,000 mg PO Q6H PRN (Reason: pain) clobetasol 0.05 % ointment topical DAILY calcium citrate 250 mg calcium tablet 500 mg PO BID 90 Days Qty: 360 1RF ascorbate calcium (vitamin C) 500 mg tablet 1 g PO Q6H citalopram 20 mg tablet 20 mg PO DAILY mirtazapine 45 mg tablet,disintegrating 45 mg PO BEDTIME budesonide-formoterol 160-4.5 mcg/actuation HFA aerosol inhaler inhalation amlodipine 2.5 mg tablet 2.5 mg PO DAILY famotidine [Pepcid] 20 mg tablet 20 mg PO BEDTIME Qty: 90 3RF Linzess 290 mcg capsule 290 mcg PO QAM Qty: 90 4RF pantoprazole 40 mg tablet,delayed release (DR/EC) 40 mg PO DAILY Qty: 90 2RF Rx Instructions: libby un comprimido media hora antes del desayuno levothyroxine 75 mcg tablet 75 mcg PO DAILY Qty: 30 5RF (DME) nebulizers Misc See Rx Instructions .ROUTE Rx Instructions: As directed Evenity 210mg/2.34mL ( 105mg/1.17mLx2) syringe subcut Incruse Ellipta 62.5 mcg/actuation blister with device 1 inh inhalation DAILY 30 Days Qty: 30 11RF cyanocobalamin (vitamin B-12) 1,000 mcg tablet 1,000 mcg PO QAM Referrals: Pat Juan, [employer] PROCESS SERVER DEVELOPER [Primary Care Provider] - 3 days Print Language: Georgian
--- NOTE | 2024-04-29 18:17 | ECG_ITS ---
Test Reason : CHEST TIGHTENESS Blood Pressure : / mmHG Vent. Rate : 060 BPM Atrial Rate : 060 BPM P-R Int : 128 ms QRS Dur : 080 ms QT Int : 422 ms P-R-T Axes : 030 -03 028 degrees QTc Int : 422 ms Normal sinus rhythm Normal ECG When compared with ECG of 23-FEB-2024 11:43, Nonspecific T wave abnormality, worse in Anterior leads Referred By: Latoya Woodruff Electronically Signed By:JACQUE LANDAVERDE MD
[2024-04-29 18:42] LABS: MANUAL DIFF FLAG NO
[2024-04-29 18:48] LABS: Basophils Percent Auto 0.4 % (0-2); Eosinophils Absolute Auto 0.5 X10*3/uL (0.0-0.4); Hemoglobin 11.7 g/dl (12.0-16.0); Imm Gran Abs Auto 0.03 X10*3/uL (0.00-0.03); Imm Gran Pct Auto 0.4 % (0.0-0.4); Lymphocytes Absolute Auto 1.6 X10*3/uL (1.2-4.9); Lymphocytes Percent Auto 20.6 % (20-40); Mean Corpuscular HGB Conc 32.5 g/dl (31.0-35.0); Mean Corpuscular Hemoglobin 31.8 pg (27.0-33.0); Mean Corpuscular Volume 97.8 fL (80.0-98.0); Monocytes Absolute Auto 0.7 X10*3/uL (0.1-1.2); Monocytes Percent Auto 8.9 % (2-11); Neutrophils Absolute Auto 4.8 x10*3/uL (2.0-8.3); Neutrophils Percent Auto 63.7 % (45-73); Platelet Count 223 X10*3/uL (160-400); Red Blood Count 3.68 X10*6/uL (4.20-5.50); Red Cell Distribution Width 15.3 % (11.0-16.0); White Blood Count 7.6 X10*3/uL (4.8-10.8)
[2024-04-29 18:59] LABS: Alanine Aminotransferase 31 U/L (0-31); Albumin Level 3.9 g/dL (3.5-5.0); Alkaline Phosphatase 78 U/L (39-117); Anion Gap 16 (12-20); Aspartate Amino Transferase 23 U/L (5-31); Bilirubin Total 0.4 mg/dL (0.0-1.0); Blood Urea Nitrogen 21 mg/dL (9-16); Calcium 9.5 mg/dL (8.4-10.2); Carbon Dioxide 28 mmol/L (22-29); Chloride 108 mmol/L (96-108); Creatinine Clr Calc Pharmacy 34.6; Estimated Glomerular Filt Rate 47; Glucose Random 110 mg/dL (60-115); Magnesium 1.9 mg/dL (1.6-2.6); Potassium 4.9 mmol/L (3.3-5.1); Sodium 147 mmol/L (135-145); Total Protein 6.9 g/dL (6.5-8.0)
[2024-04-29 19:24] LABS: Influenza A PCR NEGATIVE (Negative); Influenza B PCR NEGATIVE (Negative); Resp Syncy Virus RNA Qual PCR NEGATIVE (Negative); SARS COV2 PCR INHOUSE NEGATIVE (Negative)
[2024-04-29 19:59] LABS: Troponin-I High Sensitivity < 2.7 ng/L (<3.5-17.0)
[2024-04-29 20:36] LABS: IDNOW Serial# 58CA691E; Strep A Nucleic Acid Negative (Negative)
[2024-04-29 22:31] VITALS: PULSE 56; RESP 16; O2SAT 97
[2024-04-29] MEDS: Albuterol/Iprat 2.5/0.5MG 3 ML AMPUL.NEB INHALE (22:31)
[2024-04-29 22:48] VITALS: BP 130/77; PULSE 60; RESP 20; TEMP 36.8
[2024-04-29] MEDS: predniSONE 20 MG TABLET 60 MG PO (22:50)
[2024-04-30 00:21] VITALS: BP 130/77; PULSE 60; RESP 20; TEMP 36.8; O2SAT 96
== END 2024-04-30 00:22 | disposition home or self-care (01) ==
PROVIDERS: Physician Assistant Medical; Emergency Provider Emergency Medicine; PCP Registered Nurse
DX: J45.901 Unspecified asthma with (acute) exacerbation (principal); I10 Essential (primary) hypertension; E11.9 Type 2 diabetes mellitus without complications; E78.5 Hyperlipidemia, unspecified; E03.9 Hypothyroidism, unspecified; Z79.899 Other long term (current) drug therapy; Z03.818 Encounter for observation for suspected exposure to other biological agents ruled out
CPT/HCPCS: 0241U; 71046; 80053; 83735; 84484; 85025; 87651; 93005; 94640; 99284

== ENCOUNTER → 2024-04-29 18:17 | Outpatient (BNV) | payer MEDICARE, SELFPAY | PROVIDERS: Emergency Provider Emergency Medicine; PCP Registered Nurse; Visit Provider Internal Medicine Cardiovascular Disease | DX: R07.9 Chest pain, unspecified (principal) | CPT/HCPCS: 93010 ==

== ENCOUNTER 2024-04-30 19:46 | Outpatient (REF) | payer MEDICARE, SELFPAY ==
--- NOTE | ~2024-04-30 | MR_ITS ---
MRI OF THE BRAIN WITHOUT IV CONTRAST INDICATION: Chronic headache and craniotomy. COMPARISON: None available. TECHNIQUE: Multiplanar multisequence MR imaging of the brain was obtained without IV contrast. FINDINGS: There are postoperative changes following right frontal craniotomy. There is mild chronic microangiopathy. There is no hydrocephalus, extra-axial surface collection, or herniation. No parenchymal signal abnormality. The major flow voids at the skull base are preserved. There is no acute infarct on diffusion-weighted imaging. There is no intracranial hemorrhage on the gradient recalled echo acquisition. There is a partially empty sella. The cerebellar tonsils are normally positioned. The cerebellum and brainstem are normal. The craniocervical junction is normal. MR/MR head/brain wo con IMPRESSION: * No acute intracranial findings. * There are postoperative changes following right frontal craniotomy. There is mild chronic microangiopathy. Electronically signed by: Bari Adair MD 05/25/2024 12:13 PM EDT
== END 2024-04-30 19:47 | disposition home or self-care (01) ==
LOC: HO.MRI 19:46
PROVIDERS: PCP Registered Nurse; Visit Provider Registered Nurse
DX: R51.9 Headache, unspecified (principal)
CPT/HCPCS: 70551

== ENCOUNTER → 2024-05-16 14:25 | Outpatient (BNVA) | payer MEDICARE, SELFPAY | PROVIDERS: PCP Registered Nurse | DX: Z71.89 Other specified counseling (principal) ==

== ENCOUNTER 2024-05-27 10:51 | Outpatient (AMB) | payer MEDICARE, SELFPAY ==
[2024-05-27 11:00] VITALS: BP 128/70; PULSE 73; O2SAT 95; BMI 28.7
--- NOTE | 2024-05-27 11:00 | MHC.OFFVIS ---
Vital Signs 05/27/24 11:00 Height 4 ft 11 in Weight 142 lb 3.17 oz BMI 28.7 BP 128/70 Blood Pressure Location Lt brachial Position Sitting Pulse 73 Pulse Source Pulse Oximeter Pulse Oximetry (%) 95 Oxygen Delivery Method Room Air Intake Visit Reasons: moderate persistent asthma Chief Of Police Required: No Allergies morphine [MORPHINE] Allergy (Unknown, Verified 05/27/24 11:02) RASH HPI Comments Details: The patient is a 73 year woman known history of asthma now with worsening asthma symptoms. The patient states that she was in her usual state health until she had her 1st baby. After her she started developing asthma symptoms since she started using inhalers. The patient most recently was evaluated in the ER back in November 2023 for an asthma exacerbation. At that point she was having also flu-like symptoms and she was positive for the flu. She was treated with Tamiflu. Prior to that she had been evaluated in the ER back in June for an asthma exacerbation. She did have a chest x-ray demonstrating no significant abnormalities except for a slightly elevated left hemidiaphragm. She also has had imaging studies including a CT scan of the chest which I personally reviewed from 2019 demonstrating multiple pulmonary nodules which were benign appearance and appeared to be stable when compared to previous CT scans from 2016. The patient states that she does have underlying allergies. She has never been treated for allergies. I did review her blood work she does have significant eosinophilia suggesting eosinophilic asthma. She still has some wheezing on examination will try to optimize her respiratory therapy by adding a long-acting muscarinic antagonist. The patient may also be a candidate biologics if she continues to require prednisone have frequent exacerbations. 05/27/2024 the patient is here for pulmonary follow-up visit. Overall the patient has been doing well. Unfortunately in February she did develop RSV in significant asthma symptoms. she is feeling better now that she has a productive cough with yellow phlegm. Moderate severity. She has responded well to the current respiratory regimen. Blood work was done. She does have some degree of eosinophilia. Although her asthma seems to be better control on the current respiratory if it was not for the RSV infection. She did have a chest x-ray beginning of 05/13/2024. Seems to have some pulmonary congestion. Therefore, will go ahead and treat her with doxycycline for postop bacterial infection. She is going to continue with the current respiratory regimen. For now there is no need to start her on biologics. Will reassess in the spring. [facility] Medical History Pulmonary nodules Allergies Kidney stone Back pain Arthritis HLD (hyperlipidemia) Hypothyroidism Diabetes Hypertension Asthma Hyperthyroidism Vitamin D deficiency Primary hyperparathyroidism Postablative hypothyroidism Surgical History History of craniotomy Hx of colonoscopy History of esophagogastroduodenoscopy (EGD) Hx of endoscopy S/P subtotal parathyroidectomy History of carpal tunnel release of both wrists Hx of cataract removal with insertion of prosthetic lens Hx of lithotripsy Hx of cholecystectomy Hx of hysterectomy Family History Father No problems noted. Mother No problems noted. Social History Household Members: Family Are you a primary care management specialist to a significant other at home: No Do you presently have visiting nurse or other home services: No Alcohol intake: never Patient Tobacco Use Status: Never used Tobacco Review of Systems Const Denies weight gain and Denies weight loss ENT Reports no additional complaints, Reports nasal congestion and Reports nasal discharge Card Reports no additional complaints Resp Reports chest congestion, Reports cough and Reports wheezing GI Denies abdominal pain Musc Reports no additional complaints Neuro Reports no additional complaints Psych Reports no additional complaints Endo Reports no additional complaints Aller/Immun Reports wheezing Physical Exam Vital Signs: Last Vital Signs Pulse 73 05/27/24 11:00 BP 128/70 05/27/24 11:00 Pulse Ox 95 05/27/24 11:00 Oxygen Delivery Method Room Air 05/27/24 11:00 BMI result Body Mass Index 28.7 Const General: healthy appearing, no acute distress and well developed Nutritional Appearance: well nourished Orientation/consciousness: patient oriented x3 HEENT Head: Yes normocephalic Neck Neck: Yes supple Chest Chest palpation & inspection: normal inspection of the chest Resp Effort & Inspection: normal respiratory effort Auscultation: no wheezes and diminished lung sounds Cardio Rate: regular rate GI Inspection: No distended Palpation (GI): Soft to palpation General: Yes no CVA tenderness Back/Spine/Pelvis Back: no CVA tenderness Skin General skin exam: no rashes or lesions noted Neuro General: patient oriented x3 Extrem General: Yes no clubbing, cyanosis or edema Psych Appearance: grossly normal Mental Status: mental status grossly normal Assessment & Plan Assessment & Plan (1) Asthma: Code(s): J45.909 - Unspecified asthma, uncomplicated Category: Medical Qualifiers: Asthma complication type: uncomplicated Asthma persistence: persistent Asthma severity: moderate Qualified Code(s): J45.40 - Moderate persistent asthma, uncomplicated (2) Allergies: Code(s): T78.40XA - Allergy, unspecified, initial encounter Category: Medical Qualifiers: Encounter type: initial encounter Qualified Code(s): T78.40XA - Allergy, unspecified, initial encounter (3) Pulmonary nodules: Comment: subcentemeter, stable 2016 to 2019 Code(s): R91.8 - Other nonspecific abnormal finding of lung field Category: Medical (4) Bronchitis: Code(s): J40 - Bronchitis, not specified as acute or chronic Category: Medical Plan continue Symbicort continue Incruse MARCO as needed continue Zyrtec continue Singulair add doxycycline F/U 6-8 months Medications: New doxycycline hyclate 100 mg PO BID 10 days 20 caps 0RF Coding Level of Care Code Est Pt Level 4 (20766) Diagnoses Moderate persistent asthma without complication J45.40 Asthma complication type: uncomplicated Asthma persistence: persistent Asthma severity: moderate Allergy, initial encounter T78.40XA Encounter type: initial encounter Pulmonary nodules R91.8 Bronchitis J40 Time Spent (min) 16
== END 2024-05-27 11:26 | disposition home or self-care (01) ==
PROVIDERS: PCP Registered Nurse; Visit Provider Hospitalist
DX: J45.40 Moderate persistent asthma, uncomplicated (principal); T78.40XA Allergy, unspecified, initial encounter; R91.8 Other nonspecific abnormal finding of lung field; J40 Bronchitis, not specified as acute or chronic
CPT/HCPCS: 99214

== ENCOUNTER → 2024-05-27 10:51 | Outpatient (BNVA) | payer MEDICARE, SELFPAY | PROVIDERS: PCP Registered Nurse; Visit Provider Hospitalist | DX: J45.40 Moderate persistent asthma, uncomplicated (principal); J40 Bronchitis, not specified as acute or chronic; R91.8 Other nonspecific abnormal finding of lung field; T78.40XA Allergy, unspecified, initial encounter | CPT/HCPCS: 99212 ==

== ENCOUNTER 2024-06-10 13:14 | Outpatient (AMB) | payer MEDICARE, SELFPAY ==
[2024-06-10 13:18] VITALS: BP 146/74; PULSE 65; BMI 29.1
--- NOTE | 2024-06-10 13:18 | A.OFFVIS_ITS ---
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5 mg PO DAILY ascorbate calcium (vitamin C) 1 g PO Q6H atorvastatin 40 mg PO DAILY budesonide-formoterol 160-4.5 mcg/actuation inhalation calcium citrate 500 mg (2 x 250 mg calcium) PO BID 90 days cetirizine 10 mg PO DAILY PRN citalopram 20 mg PO DAILY cyanocobalamin (vitamin B-12) 1,000 mcg PO QAM cyclobenzaprine 10 mg PO TID PRN doxycycline hyclate 100 mg PO BID 10 days famotidine (Pepcid) 20 mg PO BEDTIME levothyroxine 75 mcg PO DAILY linaclotide (Linzess) 290 mcg PO QAM meloxicam 15 mg PO DAILY mirtazapine 45 mg PO BEDTIME montelukast 10 mg PO DAILY multivitamin 1 tab PO DAILY nebulizers As directed pantoprazole 40 mg PO DAILY pen needle, diabetic As directed may substitute for daily use umeclidinium 62.5 mcg/actuation (Incruse Ellipta) 1 inh inhalation DAILY 30 days zolpidem 10 mg PO BEDTIME PRN HPI Comments Details: Hedy has been referred for evaluation due to concerns for nonspecific changes in the EKG. Patient herself is extremely vague historian. Discussed with her using spa associate and information is very difficult to obtain. She is essentially stays yes to almost all the questions. She does get chest tightness episodes during asthma exacerbations. When asked her but jaw pain, she again states he has but unclear how much she really understands. Left arm discomfort as well. No clear history of any coronary disease or myocardial infarction or cardiomyopathy or in fact any other cardiac issues in the past. Many comorbidities and on polypharmacy. [facility] Medical History Pulmonary nodules Allergies Kidney stone Back pain Arthritis HLD (hyperlipidemia) Hypothyroidism Diabetes Hypertension Asthma Hyperthyroidism Vitamin D deficiency Primary hyperparathyroidism Postablative hypothyroidism Surgical History History of craniotomy Hx of colonoscopy History of esophagogastroduodenoscopy (EGD) Hx of endoscopy S/P subtotal parathyroidectomy History of carpal tunnel release of both wrists Hx of cataract removal with insertion of prosthetic lens Hx of lithotripsy Hx of cholecystectomy Hx of hysterectomy Family History Father No problems noted. Mother No problems noted. Social History Household Members: Family Are you a primary career development engineer to a significant other at home: No Do you presently have visiting nurse or other home services: No Alcohol intake: never Patient Tobacco Use Status: Never used Tobacco Review of Systems Const Denies chills, Denies daytime sleepiness, Denies fatigue, Denies fever(s), Denies poor appetite, Denies snoring, Denies stops breathing during sleep, Denies weakness, Denies weight gain and Denies weight loss Eyes Denies loss of vision ENT Denies dizziness and Denies hearing loss Card Denies chest pain, Denies irregular heart rhythm, Denies claudication, Denies leg edema, Denies lightheadedness, Denies palpitations, Denies dyspnea on exertion and Denies orthopnea Resp Denies cough, Denies excessive phlegm production, Denies dyspnea on exertion, Denies snoring and Denies wheezing GI Denies abdominal pain, Denies hematochezia, Denies change in bowel habits, Denies nausea and Denies vomiting Denies urinary frequency and Denies dysuria Musc Denies arthralgias, Denies muscle weakness, Denies numbness and Denies other Skin/Breast Denies nail changes and Denies rash Neuro Denies Abnormal speech present, Denies dizziness, Denies loss of vision, Denies memory loss, Denies numbness and Denies weakness Psych Denies depression and Denies memory loss Endo Denies fatigue and Denies palpitations Eder/Lymph Denies easy bruising Aller/Immun Denies wheezing Physical Exam Vital Signs: Last Vital Signs Pulse 65 06/10/24 13:18 BP 146/74 H 06/10/24 13:18 BMI result Body Mass Index 29.1 Const General: comfortable and no acute distress Orientation/consciousness: patient oriented x3 HEENT Other: Unremarkable Head: Yes normal to inspection Neck Neck: Yes normal visual inspection Chest Chest palpation & inspection: normal inspection of the chest Resp Auscultation: clear to auscultation bilaterally Cardio Palpation: normal PMI Heart sounds: S1 normal heart sound present, S2 normal heart sound present, no gallops, Murmur heart sound present systolic II/ and at the right sternal border and no rubs GI Palpation (GI): Soft to palpation Back/Spine/Pelvis Other: unremarkable Skin General skin exam: no rashes or lesions noted Neuro General: patient oriented x3 Speech: No Abnormal speech present Extrem General: Yes normal to inspection Psych Mental Status: mental status grossly normal Office Procedures EKG Details: EKG with underlying sinus rhythm at 60/Min; no significant ST-T changes and otherwise unremarkable[place] [id number], Complete Assessment & Plan Assessment & Plan (1) Shortness of breath: Code(s): R06.02 - Shortness of breath Category: Medical Plan In chest CT scan from 2022, [id number] coronary artery calcifications with mild aortic calcification. Echocardiogram with LVEF of 66%; moderate septal hypertrophy and mid inferoseptal hypokinesis. Otherwise unremarkable. Overall, elderly female, poor historian, many comorbidities, polypharmacy, atypical symptoms. Suspect a lot of her symptoms are just related to her asthma. Obtain exercise stress perfusion imaging study for further cardiac evaluation. Otherwise, no specific medication changes for now. Orders: Orders CA stress test Today R07.2 - Precordial pain NM cardiolite stress test Today R07.2 - Precordial pain Coding Level of Care Code New Pt Level 3 (28650) Diagnoses Shortness of breath R06.02 CPT Codes EKG - CPT: 74182-[id number], Complete ([id number])
== END 2024-06-10 13:40 | disposition home or self-care (01) ==
PROVIDERS: PCP Registered Nurse; Visit Provider Internal Medicine
DX: R06.02 Shortness of breath (principal)
CPT/HCPCS: 93010; 99213

== ENCOUNTER → 2024-06-10 13:14 | Outpatient (BNVA) | payer MEDICARE, SELFPAY | PROVIDERS: PCP Registered Nurse; Visit Provider Internal Medicine | DX: R06.02 Shortness of breath (principal); R07.2 Precordial pain | CPT/HCPCS: 93005; 99212 ==

== ENCOUNTER 2024-06-13 09:55 | Outpatient (AMB) | payer MEDICARE, SELFPAY ==
[2024-06-13 09:56] VITALS: BP 118/58; PULSE 74; O2SAT 94
--- NOTE | 2024-06-13 09:56 | A.OFFVIS_ITS ---
Vital Signs 06/13/24 09:56 Height 4 ft 11 in BP 118/58 L Blood Pressure Location Rt brachial Position Sitting Pulse 74 Pulse Source Pulse Oximeter Pulse Oximetry (%) 94 Oxygen Delivery Method Room Air Intake Visit Reasons: 6 month follow up Intake Note: Hedy presents in office today for a scheduled 6 mos FUV. CC: Pt was rx'd famotidine, pantoprazole, and linzess at their last visit. Pt reports that they have been doing well since their last visit. Pt denies any current sx or concerns. Pt still taking all medications as intended. Monumental Stonemason Required: Yes Allergies morphine [MORPHINE] Allergy (Unknown, Verified 06/13/24 09:57) RASH HPI HPI 6 month follow up: Details: LAST VISIT GERD (gastroesophageal reflux disease) Chronic idiopathic constipation Plan Patient is doing better now that she is taking Linzess daily. Continue to avoid dietary triggers in late night snacking. Patient will increase fluid intake and activity to promote better bowel motility. Patient can take pantoprazole in the morning and famotidine at bedtime. I will see her in 6 months, sooner on as needed basis. Patient is agreeable to this plan and verbalizes understanding of instructions. She was given the opportunity to ask questions and all questions answered. ? Thank you for allowing me to participate in her care Medications Refilled linaclotide (Linzess) 290 mcg PO QAM 90 caps 4RF K59.00 pantoprazole libby un comprimido media hora antes del desayuno 40 mg PO DAILY 90 tabs 2RF K21.9 famotidine (Pepcid) 20 mg PO BEDTIME 90 tabs 3RF K21.9 TODAY'S VISIT Patient is here today for follow-up. Patient reports that she has been doing well. Continues to take pantoprazole in the morning and famotidine at bedtime. Her symptoms of acid reflux are completely suppressed. Patient also changed her diet. Avoid dietary triggers. Patient moves her bowels better now. Takes Linzess every couple days. Denies any abdominal pain or discomfort. Denies any abdominal bloating. Denies dyspepsia, dysphagia or odynophagia. Patient denies melena, hematochezia. Patient denies any GI concerning symptoms. [facility] Medical History Pulmonary nodules Allergies Kidney stone Back pain Arthritis HLD (hyperlipidemia) Hypothyroidism Diabetes Hypertension Asthma Hyperthyroidism Vitamin D deficiency Primary hyperparathyroidism Postablative hypothyroidism Surgical History History of craniotomy Hx of colonoscopy History of esophagogastroduodenoscopy (EGD) Hx of endoscopy S/P subtotal parathyroidectomy History of carpal tunnel release of both wrists Hx of cataract removal with insertion of prosthetic lens Hx of lithotripsy Hx of cholecystectomy Hx of hysterectomy Family History Father No problems noted. Mother No problems noted. Social History Household Members: Family Are you a primary home health care social worker to a significant other at home: No Do you presently have visiting nurse or other home services: No Alcohol intake: never Patient Tobacco Use Status: Never used Tobacco Review of Systems Const Denies weight gain and Denies weight loss ENT Reports no additional complaints, Denies dysphagia and Denies odynophagia Card Reports no additional complaints Resp Reports no additional complaints GI Denies abdominal pain, Denies belching, Denies melena, Denies bloating, Denies change in bowel habits, Denies dysphagia, Denies excessive flatus, Denies dyspepsia, Denies heartburn, Denies diarrhea, Denies loose stools, Denies nausea, Denies odynophagia and Denies vomiting Musc Reports no additional complaints Neuro Reports no additional complaints Psych Reports no additional complaints Endo Reports no additional complaints Physical Exam Const General: healthy appearing, no acute distress and well developed Nutritional Appearance: well nourished Orientation/consciousness: patient oriented x3 Resp Effort & Inspection: normal respiratory effort, able to speak in complete sentences, no tracheal deviation and symmetric chest movement Auscultation: clear to auscultation bilaterally Cardio Rate: regular rate GI Inspection: Yes normal to inspection and No distended Palpation (GI): Soft to palpation, not firm, nontender and No hepatosplenomegaly present Auscultation: normal bowel sounds General: Yes no CVA tenderness Back/Spine/Pelvis Back: no CVA tenderness Skin General skin exam: elasticity normal, turgor normal and dry skin Neuro General: patient oriented x3 Psych Appearance: grossly normal Mental Status: mental status grossly normal Assessment & Plan Assessment & Plan (1) GERD (gastroesophageal reflux disease): Code(s): K21.9 - Gastro-esophageal reflux disease without esophagitis Qualifiers: Esophagitis presence: esophagitis presence not specified Qualified Code(s): K21.9 - Gastro-esophageal reflux disease without esophagitis (2) Chronic idiopathic constipation: Code(s): K59.04 - Chronic idiopathic constipation Plan Continue pantoprazole in the morning and famotidine at bedtime. Avoid dietary triggers and late night snacking. Staying upright for minimum 3 hours after meals discussed with patient. Continue Linzess. Increase fluid intake and activity to promote better bowel motility. Follow-up in the office in 6 months, sooner on as needed basis. Patient is agreeable to this plan and verbalizes understanding of instructions. She was given the opportunity to ask questions and all questions answered. Thank you for allowing me to participate her care Coding Level of Care Code Est Pt Level 3 (93419) Diagnoses Gastroesophageal reflux disease, unspecified whether esophagitis present K21.9 Esophagitis presence: esophagitis presence not specified Chronic idiopathic constipation K59.04 Time Spent (min) 25 Comment 15 minutes spent with patient and additional 10 minutes spent reviewing her records
== END 2024-06-13 10:38 | disposition home or self-care (01) ==
PROVIDERS: PCP Registered Nurse; Visit Provider Nurse Practitioner Family
DX: K21.9 Gastro-esophageal reflux disease without esophagitis (principal); K59.04 Chronic idiopathic constipation
CPT/HCPCS: 99213

== ENCOUNTER → 2024-06-13 09:55 | Outpatient (BNVA) | payer MEDICARE, SELFPAY | PROVIDERS: PCP Registered Nurse; Visit Provider Nurse Practitioner Family | DX: K21.9 Gastro-esophageal reflux disease without esophagitis (principal); K59.04 Chronic idiopathic constipation | CPT/HCPCS: 99212 ==

== ENCOUNTER → 2024-08-12 07:50 | Outpatient (REF) | payer MEDICARE, SELFPAY ==
--- NOTE | ~2024-08-12 | NM_ITS ---
EXERCISE MYOCARDIAL PERFUSION STUDY INDICATION: Shortness of breath, coronary artery calcifications CT scan TECHNIQUE: The patient was brought in for an exercise perfusion study on 08/12/2024. Patient performed exercise as per Gurjit protocol and was injected 25 mCi of sestamibi once target heart rate was achieved. Images were obtained using the SPECT gamma camera interlaced with the gating device. Images were obtained in supine position. Resting perfusion study was performed on 08/13/2024. Patient was administered 25 mCi of sestamibi intravenously at rest. Images were then obtained in supine position. Total DLP 153 mGy-cm. Images were processed with the software and compared side to side in short axis, horizontal long axis and vertical long axis views. FINDINGS: Raw aquisition reviewed. Arms by the patient's side. The stress perfusion study showed no significant perfusion abnormality. Both uncorrected as well as CT attenuation corrected images were reviewed. The gated study shows normal LV systolic function with calculated LVEF of 67%. LV cavity is normal in size. The gated study shows normal wall thickening and contraction of segments. Resting study shows mildly reduced tracer uptake in the basal inferolateral wall. There is improvement with CT attenuation correction suggesting diaphragmatic attenuation artifact. Gating at rest reveals normal wall motion with ejection fraction at 71%. The findings are consistent with no clear reversal or fixed perfusion abnormality. NM/NM cardiolite stress test IMPRESSION: 1. Myocardial perfusion imaging study shows probably normal myocardial perfusion. 2. Gated LVEF is 67% during stress and 71% during rest. 3. Transient ischemic dilatation not present. EKG component of the test reported separately. Electronically signed by: Robert Carranza MD 08/13/2024 12:09 PM [facility]
--- NOTE | 2024-08-12 07:52 | CA_ITS ---
Acquisition Time: 2024-08-12 07:58:19 Total Exercise Time: 00:05:30 Test Indications: Abnormal ECG Medications: SEE H Protocol: ELIE Max HR: 133 BPM 91% of Pred: 145 BPM Max BP: 190/084 mmHG Max Work Load: 7.0 METS Exercise stress test with exercise 5 min 30 sec of Elie protocol, achieving 91% MPHR, with mild sob, no chest discomfort, with isolated PACs, brief atrial runs, with normotensive response to exercise, without EKG changes meeting criteria for ischemia. Nuclear images pending. Test reviewed with Dr Padilla Referred By: Roebrt Carranza Overread By: ALIVIA ORTIZ
== END ==
LOC: HO.CARD 07:50
PROVIDERS: PCP Registered Nurse; Visit Provider Internal Medicine
DX: R07.2 Precordial pain (principal)
CPT/HCPCS: 78452; 93017; A9500; J0280; J2785

== ENCOUNTER → 2024-08-12 07:52 | Outpatient (BNV) | payer MEDICARE, SELFPAY | PROVIDERS: PCP Registered Nurse; Visit Provider Nurse Practitioner Family | DX: I49.1 Atrial premature depolarization (principal) | CPT/HCPCS: 78452; 93016; 93018 ==

== ENCOUNTER 2024-08-29 13:58 | Emergency (ER) | payer MEDICARE, SELFPAY ==
--- NOTE | ~2024-08-29 | XR_ITS ---
EXAMINATION: XR CHEST CLINICAL INFORMATION: sob COMPARISON: CXR on 04/29/24 TECHNIQUE: Frontal view of the chest was obtained. FINDINGS: No significant abnormality is noted involving the heart, lungs, mediastinum, bony thorax or soft tissues. XR/XR chest 1V IMPRESSION: Unremarkable examination. Electronically signed by: Rocio Orr MD 08/29/2024 04:06 PM [facility]
[2024-08-29 14:01] VITALS: BP 155/86; PULSE 78; RESP 20; TEMP 36.7; O2SAT 96; BMI 29.6
--- NOTE | 2024-08-29 14:03 | ED.ABDPAIN ---
HPI - Abdominal Pain General Chief Complaint: Asthma Stated Complaint: Asthma Time Seen by Provider: 08/29/24 14:50 Source: patient Mode of arrival: ambulatory Limitations: no limitations History of Present Illness ED Provider: Tana Newsome PA-C HPI narrative: 73-year-old female with a history of asthma, HTN, hypothyroidism, allergies, osteoporosis, pulmonary nodules who presents to the ER for evaluation of worsening asthma symptoms since yesterday. She has been using her Nebulizer and inhaler at home with no relief. She has had a dry cough, difficulty getting out phlegm. She has had coughing fits where she has a difficult time catching her breath. She has chest congestion. patient's grandson had RSV 2 weeks ago. Patient is vaccinated for RSV. She denies any fever or chills. No nausea, vomiting, abdominal pain. No chest pain or difficulty breathing. MD elicited complaint: other ( Asthma) Related Data Home Medications ?Medication ?Instructions ?Recorded ?Confirmed acetaminophen 500 mg tablet 1,000 mg PO Q6H PRN pain 10/27/20 06/10/24 atorvastatin 40 mg tablet 40 mg PO DAILY 10/27/20 06/10/24 cetirizine 10 mg tablet 10 mg PO DAILY PRN Allergic 10/27/20 06/10/24 Symptoms montelukast 10 mg tablet 10 mg PO DAILY 10/27/20 06/10/24 multivitamin 1 tab PO DAILY 10/27/20 06/10/24 zolpidem 10 mg tablet 10 mg PO BEDTIME PRN Sleep 10/27/20 06/10/24 ascorbate calcium (vitamin C) 500 1 g PO Q6H 03/28/22 06/10/24 mg tablet cyanocobalamin (vitamin B-12) 1,000 mcg PO QAM 06/12/23 06/10/24 1,000 mcg tablet amlodipine 2.5 mg tablet 2.5 mg PO DAILY 12/11/23 06/10/24 budesonide-formoterol HFA 160 inhalation 12/11/23 06/10/24 mcg-4.5 mcg/actuation aerosol inhaler citalopram 20 mg tablet 20 mg PO DAILY 12/11/23 06/10/24 mirtazapine 45 mg disintegrating 45 mg PO BEDTIME 12/11/23 06/10/24 tablet nebulizers 02/07/24 06/10/24 meloxicam 7.5 mg tablet 7.5 mg PO DAILY 06/13/24 romosozumab-aqqg 210 mg/2.34 mg subcut 06/13/24 mL(105 mg/1.17 mL x2)subcutaneous syringe (Evenity) Previous Rx's ?Medication ?Instructions ?Recorded calcium citrate 500 mg (2 x 250 mg calcium) PO BID 03/03/21 90 days #360 tabs cyclobenzaprine 10 mg tablet 10 mg PO TID PRN muscle spasm #14 11/15/21 tabs albuterol sulfate 2.5 mg/0.5 mL 5 mg inhalation Q4H PRN shortness 12/02/22 solution for nebulization of breath or wheezing #30 ea albuterol sulfate 90 mcg/actuation 2 inh inhalation Q4-6H PRN 06/21/23 breath activated powder inhaler shortness of breath or wheezing #1 ea albuterol sulfate 2.5 mg/3 mL 2.5 mg (3 mL) inhalation Q4-6H PRN 12/07/23 (0.083 %) solution for nebulization shortness of breath or wheezing #90 mL famotidine 20 mg tablet (Pepcid) 20 mg PO BEDTIME #90 tabs 12/11/23 linaclotide 290 mcg capsule 290 mcg PO QAM #90 caps 12/11/23 (Linzess) pantoprazole 40 mg tablet,delayed 40 mg PO DAILY #90 tabs 12/11/23 release umeclidinium 62.5 mcg/actuation 1 inh inhalation DAILY 30 days #30 02/07/24 blister powder for inhalation ea (Incruse Ellipta) levothyroxine 75 mcg tablet 75 mcg PO DAILY #30 tabs 03/19/24 abaloparatide (Tymlos) 80 mcg (0.04 mL) subcut DAILY 05/12/24 #1.56 mL pen needle, diabetic 31 gauge x #100 ea 05/16/2402/06 doxycycline hyclate 100 mg capsule 100 mg PO BID 10 days #20 caps 05/27/24 azithromycin 250 mg tablet See Rx Instructions PO .COMPLEX #6 08/29/24 (Zithromax Z-Lux) tabs guaifenesin 1,200 mg tablet, 1,200 mg PO BID #10 tabs 08/29/24 extended release 12 hr (Mucus-ER MAX) prednisone 20 mg tablet 40 mg (2 x 20 mg) PO DAILY #10 tabs 08/29/24 Allergies Allergy/AdvReac Type Severity Reaction Status Date / Time morphine [MORPHINE] Allergy Unknown RASH Verified 08/29/24 14:04 Review of Systems Review of Systems Yes all other systems are reviewed and are negative [facility] Past Medical History Medical History Pulmonary nodules Allergies Kidney stone Back pain Arthritis HLD (hyperlipidemia) Hypothyroidism Diabetes Hypertension Asthma Hyperthyroidism Vitamin D deficiency Primary hyperparathyroidism Postablative hypothyroidism Surgical History History of craniotomy Hx of colonoscopy History of esophagogastroduodenoscopy (EGD) Hx of endoscopy S/P subtotal parathyroidectomy History of carpal tunnel release of both wrists Hx of cataract removal with insertion of prosthetic lens Hx of lithotripsy Hx of cholecystectomy Hx of hysterectomy Family History Family History Father No problems noted. Mother No problems noted. Social History Social History Household Members: Family Are you a primary critical care technician to a significant other at home: No Do you presently have visiting nurse or other home services: No Alcohol intake: never Patient Tobacco Use Status: Never used Tobacco Advance Directives: No Advance Directives Information Provided: Yes Physical Exam ED Vital Signs: Vital Signs - 24 hr 08/29/24 14:01 08/29/24 14:26 Temperature 98.1 F Pulse Rate 78 78 Respiratory Rate 20 18 Blood Pressure 155/86 H Pulse Oximetry 96 Oxygen Delivery Method Room Air BMI result Body Mass Index 29.6 Appearance: Alert. Oriented X3. No acute distress. Head: normocephalic, atraumatic. Eyes: Pupils equal, round and reactive to light. ENT: Pharynx normal. No tonsillar swelling or exudate. Neck: Normal inspection. Neck supple. CVS: Normal heart rate and rhythm. Pulses normal. Respiratory: No respiratory distress. Breath sounds with expiratory wheezing in the left lung bowie, coarseness in the right lung bowie with no rhonchi. Abdomen: Soft and nontender. +BS x4 Skin: Skin warm and dry. Normal skin color. Normal skin turgor. No rashes. Extremities: No lower extremity edema. No joint swelling. Neuro/psych: Oriented X 3. Dry cough noted grossly normal, nonfocal. Normal speech and cognition. Course Course Course Narrative: This is an RME done by LANDON Patel: Additional HPI, ROS, PE not included below will be deferred to primary provider. 73 year old female presents w/ asthma x 2 days. Using home treatments with little to no relief. Patient is feeling overall unwell. Appearance: Alert.? Oriented X3.? No acute cardiopulmonary distress distress.? Head: Normocephalic, atraumatic, no step-offs or deformities Neck: Normal inspection.? Neck supple.? CVS: Pulses normal.? Respiratory: No respiratory distress.? Abdomen: Soft and nontender.? Skin: ? Normal skin color. Extremities: 5/5 strength to bilateral upper and lower extremities Neuro: Oriented X 3.? No motor deficit.? No sensory deficit. Medical Decision Making Medical Decision Making MDM Narrative: 73-year-old female with history of asthma presents to the ER for evaluation of worsening chest congestion, coughing and wheezing that started yesterday. She has been using inhaler and nebulizer at home with minimal relief. No fever or chills. No chest pain or difficulty breathing other than when she is having a coughing fit. Patient's vital signs are stable on arrival, slightly hypertensive, afebrile, saturating well on room air. e.d. bronchodilator protocol ordered from triage and she was given 4 puffs of albuterol. On examination she has end-expiratory wheezing in the left lung bowie, no respiratory distress. Chest x-ray done today does not show any evidence of pneumonia. She tested negative for COVID, flu, RSV. patient given antitussive and prednisone here in the ER.Patient is overall feeling better after the Medications. No respiratory distress. At this time comfortable discharge home with oral antibiotics and prednisone. She was encouraged to continue her nebulizer treatments at home every 4 hours until she is feeling better. Encouraged follow up with her primary care doctor next week. Return precautions were discussed. Stable for discharge home at this time. Differential Diagnosis Differential Diagnoses: The differential diagnosis associated with the presentation includes asthma exacerbation, RSV, COVID, flu, bronchitis, pneumonia Admission/Observation Consideration of admission/observation: Escalation of care including admission/observation considered Lab Data MDM Lab Attestation statement: I reviewed the patient's lab results. Negative viral swab Labs: Lab Results 08/29/24 Range/Units 14:07 Influenza Type A (PCR) NEGATIVE (Negative) Influenza Type B (PCR) NEGATIVE (Negative) RSV RNA Qual (PCR) NEGATIVE (Negative) SARS-CoV-2 RNA (RT-PCR) NEGATIVE (Negative) Independent Interpretation I performed an independent interpretation of an: Plain X-Ray Interpretation: chest x-ray without focal infiltrate or effusion, no flattening of the diaphragm to suggest COPD Radiology Impression Discussion of test interpretation with radiology: I have reviewed the radiologist's reading. Independent Historian Clinical information obtained from an independent historian. History obtained from or confirmed by: Other ( adult daughter at the bedside) External Record Review External record reviewed: Outpatient record, Prior outpatient labs and Prior outpatient radiology Tests considered The following testing was considered but not selected: EKG and lab work considered, low suspicion for cardiac process Prescription Management I considered prescription management with: Other ( antibiotic, prednisone, bronchodilator) Chronic Conditions Patient?s care impacted by: Other ( asthma) Medications Administered Discontinued Medications Generic Name Dose Route Start Last Admin Trade Name Freq PRN Reason Stop Dose Admin Albuterol Sulfate 4 puff 08/29/24 14:17 08/29/24 14:21 Albuterol Sulfate 90 Mcg 8 Gm Inhaler INHALE 08/29/24 14:18 4 puff ONCE ONE Administration Critical Care Time Critical Care Time Critical Care Time: No Discharge Plan Discharge Clinical Impression: Bronchitis Asthma with acute exacerbation Qualifiers: Asthma severity: unspecified severity Asthma persistence: unspecified Qualified Code(s): J45.901 - Unspecified asthma with (acute) exacerbation Patient Disposition: Home, Self-Care Instructions: Asthma (DC), Acute Bronchitis (ED) Additional Instructions: Your chest x-ray was normal. You tested negative for COVID, flu, RSV. Take the prescribed medications as directed. The next dose of prednisone is due tomorrow morning. You were given a dose today in the ER. Continue using your nebulizer treatments and inhaler as needed for shortness of breath and wheezing. Rest and drink plenty of fluids. Follow-up with your doctor next week. If you develop new or worsening symptoms call 911 or come back to the ER for further evaluation. Prescriptions: New azithromycin [Zithromax Z-Lux] 250 mg tablet See Rx Instructions .ROUTE .COMPLEX Qty: 6 0RF Rx Instructions: take 500 mg today (day 1), then 250 mg for 4 days (days 2-5) prednisone 20 mg tablet 40 mg PO DAILY Qty: 10 0RF guaifenesin [Mucus-ER MAX] 1,200 mg tablet extended release 12hr 1,200 mg PO BID Qty: 10 0RF No Action Tymlos 80 mcg (3,120 mcg/1.56 mL) pen injector 80 mcg subcut DAILY Qty: 1.56 12RF Rx Instructions: inject into abdomen; do not inject within 2 inches of belly button/navel; rotate sites (DME) pen needle, diabetic 31 gauge x 5/16 needle See Rx Instructions .Route Qty: 100 3RF Rx Instructions: As directed may substitute for daily use cyclobenzaprine 10 mg tablet 10 mg PO TID PRN (Reason: muscle spasm) Qty: 14 0RF albuterol sulfate 2.5 mg/0.5 mL solution for nebulization 5 mg inhalation Q4H PRN (Reason: shortness of breath or wheezing) Qty: 30 0RF albuterol sulfate 90 mcg/actuation aerosol powdr breath activated 2 inh inhalation Q4-6H PRN (Reason: shortness of breath or wheezing) Qty: 1 0RF albuterol sulfate 2.5 mg /3 mL (0.083 %) solution for nebulization 2.5 mg inhalation Q4-6H PRN (Reason: shortness of breath or wheezing) Qty: 90 0RF zolpidem 10 mg tablet 10 mg PO BEDTIME PRN (Reason: Sleep) atorvastatin 40 mg tablet 40 mg PO DAILY montelukast 10 mg tablet 10 mg PO DAILY cetirizine 10 mg tablet 10 mg PO DAILY PRN (Reason: Allergic Symptoms) multivitamin Tablet 1 tab PO DAILY acetaminophen 500 mg tablet 1,000 mg PO Q6H PRN (Reason: pain) calcium citrate 250 mg calcium tablet 500 mg PO BID 90 Days Qty: 360 1RF ascorbate calcium (vitamin C) 500 mg tablet 1 g PO Q6H citalopram 20 mg tablet 20 mg PO DAILY mirtazapine 45 mg tablet,disintegrating 45 mg PO BEDTIME budesonide-formoterol 160-4.5 mcg/actuation HFA aerosol inhaler inhalation amlodipine 2.5 mg tablet 2.5 mg PO DAILY famotidine [Pepcid] 20 mg tablet 20 mg PO BEDTIME Qty: 90 3RF Linzess 290 mcg capsule 290 mcg PO QAM Qty: 90 4RF pantoprazole 40 mg tablet,delayed release (DR/EC) 40 mg PO DAILY Qty: 90 2RF Rx Instructions: libby un comprimido media hora antes del desayuno levothyroxine 75 mcg tablet 75 mcg PO DAILY Qty: 30 5RF meloxicam 7.5 mg tablet 7.5 mg PO DAILY Evenity 210mg/2.34mL ( 105mg/1.17mLx2) syringe subcut (DME) nebulizers Misc See Rx Instructions .Route Rx Instructions: As directed Incruse Ellipta 62.5 mcg/actuation blister with device 1 inh inhalation DAILY 30 Days Qty: 30 11RF cyanocobalamin (vitamin B-12) 1,000 mcg tablet 1,000 mcg PO QAM doxycycline hyclate 100 mg capsule 100 mg PO BID 10 Days Qty: 20 0RF Referrals: Pat Juan, RADIO TECHNICIAN [Primary Care Provider] - Print Language: Polish
[2024-08-29] MEDS: Albuterol Sulfate 90 MCG 8 GM INHALER 4 PUFF INHALE (14:21)
[2024-08-29 14:26] VITALS: PULSE 78; RESP 18; O2SAT 95
[2024-08-29 15:01] LABS: Influenza A PCR NEGATIVE (Negative); Influenza B PCR NEGATIVE (Negative); Resp Syncy Virus RNA Qual PCR NEGATIVE (Negative); SARS COV2 PCR INHOUSE NEGATIVE (Negative)
[2024-08-29] MEDS: predniSONE 20 MG TABLET 40 MG PO (16:37)
[2024-08-29] MEDS: guaiFENesin DM 200/20/10 ML 10 ML SYRUP PO (16:38)
[2024-08-29 16:39] VITALS: BP 00/00; PULSE 78; RESP 18; TEMP 36.9; O2SAT 98
== END 2024-08-29 16:40 | disposition home or self-care (01) ==
PROVIDERS: Physician Assistant; Emergency Provider Emergency Medicine Emergency Medical Services; PCP Registered Nurse
DX: J45.901 Unspecified asthma with (acute) exacerbation (principal); Z03.818 Encounter for observation for suspected exposure to other biological agents ruled out; E11.9 Type 2 diabetes mellitus without complications; I10 Essential (primary) hypertension; E78.5 Hyperlipidemia, unspecified; Z79.899 Other long term (current) drug therapy; Z79.02 Long term (current) use of antithrombotics/antiplatelets
CPT/HCPCS: 0241U; 71045; 94640; 99283; 99284

== ENCOUNTER 2024-09-03 13:02 | Outpatient (REF) | payer MEDICARE, SELFPAY | END 2024-09-03 13:03 | disposition home or self-care (01) | LOC: HO.MAMMO 13:02 | PROVIDERS: PCP Registered Nurse; Visit Provider Registered Nurse | DX: Z12.31 Encounter for screening mammogram for malignant neoplasm of breast (principal) | CPT/HCPCS: 77063; 77067 ==

== ENCOUNTER → 2024-09-03 13:15 | Outpatient (BNV) | payer MEDICARE, SELFPAY | PROVIDERS: PCP Registered Nurse; Visit Provider Internal Medicine | DX: Z12.31 Encounter for screening mammogram for malignant neoplasm of breast (principal) | CPT/HCPCS: 77063; 77067 ==

== ENCOUNTER 2024-09-15 09:09 | Outpatient (REF) | payer MEDICARE, SELFPAY ==
[2024-09-15 11:12] LABS: Cholesterol 168 mg/dL (<200); HDL Cholesterol 65 mg/dL (>40); LDL Cholesterol Calculated 81 mg/dL (<100); Triglycerides 114 mg/dL (<150)
[2024-09-15 11:13] LABS: TSH reflex Free T4 0.44 uIU/mL (0.32-4.0)
[2024-09-15 11:26] LABS: Free T4 (Free Thyroxine) 1.05 ng/dL (0.71-1.85); Thyroid Stimulating Hormone 0.41 uIU/mL (0.32-4.0)
[2024-09-15 11:55] LABS: Creatinine Urine 65.58 mg/dL; Microalbumin Urine < 5.0 mg/L
== END 2024-09-15 09:10 | disposition home or self-care (01) ==
LOC: HO.LAB 09:09
PROVIDERS: PCP Registered Nurse; Visit Provider Internal Medicine Endocrinology, Diabetes & Metabolism
DX: E89.0 Postprocedural hypothyroidism (principal); E11.9 Type 2 diabetes mellitus without complications
CPT/HCPCS: 36415; 80061; 82043; 82570; 84439; 84443

== ENCOUNTER 2024-09-22 10:09 | Outpatient (AMB) | payer MEDICARE, SELFPAY ==
[2024-09-22 10:10] VITALS: BP 144/78; PULSE 68; BMI 30.1
--- NOTE | 2024-09-22 10:10 | MHC.OFFVIS ---
Vital Signs 09/22/24 10:10 Height 4 ft 11 in Weight 148 lb 12.992 oz BMI 30.1 BP 144/78 H Blood Pressure Location Rt brachial Position Sitting Pulse 68 Pulse Source Pulse Oximeter Intake Visit Reasons: f/u osteoporosis/ hypothyroidism Intake Note: Patient present today for Osteoporosis and Hypothyroidism follow up. Boil Off Worker Required: Yes Boil Off Worker Language: Senior Telecommunications Consultant Services: Boil Off Worker Present Information Interpreted: non-clinical & clinical Accompanied by: Self / Same As Patient Allergies morphine [MORPHINE] Allergy (Unknown, Verified 09/22/24 10:14) RASH Medication List - Last Reconciled 09/22/24 by Pedro Luis Molina MD abaloparatide (Tymlos) 80 mcg (0.04 mL) subcut DAILY acetaminophen 1,000 mg PO Q6H PRN albuterol sulfate 5 mg inhalation Q4H PRN albuterol sulfate 90 mcg/actuation 2 inhalations inhalation Q4-6H PRN albuterol sulfate 2.5 mg (3 mL) inhalation Q4-6H PRN amlodipine 2.5 mg PO DAILY ascorbate calcium (vitamin C) 1 g PO Q6H atorvastatin 40 mg PO DAILY azithromycin (Zithromax Z-Lux) take 500 mg today (day 1), then 250 mg for 4 days (days 2-5) budesonide-formoterol 160-4.5 mcg/actuation inhalation calcium citrate 500 mg (2 x 250 mg calcium) PO BID 90 days cetirizine 10 mg PO DAILY PRN citalopram 20 mg PO DAILY cyanocobalamin (vitamin B-12) 1,000 mcg PO QAM cyclobenzaprine 10 mg PO TID PRN doxycycline hyclate 100 mg PO BID 10 days famotidine (Pepcid) 20 mg PO BEDTIME guaifenesin ER (Mucus-ER MAX) 1,200 mg PO BID levothyroxine 75 mcg PO DAILY linaclotide (Linzess) 290 mcg PO QAM meloxicam 7.5 mg PO DAILY mirtazapine 45 mg PO BEDTIME montelukast 10 mg PO DAILY multivitamin 1 tab PO DAILY nebulizers As directed pantoprazole 40 mg PO DAILY pen needle, diabetic As directed may substitute for daily use prednisone 40 mg (2 x 20 mg) PO DAILY umeclidinium 62.5 mcg/actuation (Incruse Ellipta) 1 inh inhalation DAILY 30 days zolpidem 10 mg PO BEDTIME PRN HPI Comments Details: 73 YO Female with a PMHx Osteoporosis due to Hyperparathyroidism, now S/P 3.5 gland parathyroidectomy, as well as hyperthyroidism who is seen in F/U. She has a history of Osteoporosis with prior treatment with oral bisophosphonates as well as Prolia. She failed treatment with oral bisophosphonates and was switched to Prolia in April 2019. It appears she had 2 doses, the second April 2020. She was then diagnosed with primary hyperparathyroidism and underwent a subtotal parathyroidectomy (3.5 gland resection) with only a remnant of the R inferior gland remaining. This was completed 02/15/2021. Intraoperative PTH declined from 92 to 22, indicating cure. She does report prior fragility fracture of her R wrist and Clavicle. 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 She remains on Levothyroxine 50 mcg PO daily with TSH at goal. She reports anxiety, but otherwise states she feels well. She has no other complaints today. DEXA: 05/11/2023 FINDINGS: LEFT FEMUR, NECK: Current: BMD 0.655 g/cm2, Z-score -0.7, T-score -2.8, osteoporosis. Prior: BMD 0.687 g/cm2. Baseline: BMD 0.707 g/cm2. LEFT FEMUR, TOTAL: Current: BMD 0.695 g/cm2, Z-score -0.6, T-score -2.5, osteoporosis, 7.6% decrease from previous, 15.8% decrease from baseline (<5% change is not significant). Prior: BMD 0.752 g/cm2. Baseline: BMD 0.825 g/cm2. AP SPINE L1-L3 (excluding L4): The data of L1-L4 has been changed to exclude the L4 vertebral body, because degenerative sclerosis at this level may cause overestimation of lumbar spine density. Current: BMD 0.660 g/cm2, Z-score -2.3, T-score -4.3, osteoporosis, 11.2% decrease from previous, 16.1% decrease from baseline (<5% change is not significant). Prior: BMD 0.743 g/cm2. Baseline: BMD 0.787 g/cm2. LEFT FOREARM RADIUS 33%: BMD 0.596 g/cm2, Z-score -1.0, T-score -3.2, osteoporosis, 1.7% increase from baseline (<5% change is not significant). Baseline: BMD 0.586 g/cm2. IDENTIFIED RISK FACTORS: Early menopause, secondary osteoporosis, hysterectomy, bilateral oophorectomy, height loss, history of fracture (adult), hyperparathyroidism, low calcium intake. Labs: Laboratory Tests 03/22/23 03/22/23 15:38 15:38 Creatinine 0.89 Estimated GFR > 60 Calcium 10.1 D Albumin 4.4 TSH 1.43 Free T4 0.89 PTH Intact 55 Calcium (PTH Intact) 9.6 Taking calcium and vitamin D. and Evenity started in 12/2023, No fx since last visit . On Tymlos since 05/17/2024 . Could not tolerate Evenity PFS Medical History Pulmonary nodules Allergies Kidney stone Back pain Arthritis HLD (hyperlipidemia) Hypothyroidism Diabetes Hypertension Asthma Hyperthyroidism Vitamin D deficiency Primary hyperparathyroidism Postablative hypothyroidism Surgical History History of craniotomy Hx of colonoscopy History of esophagogastroduodenoscopy (EGD) Hx of endoscopy S/P subtotal parathyroidectomy History of carpal tunnel release of both wrists Hx of cataract removal with insertion of prosthetic lens Hx of lithotripsy Hx of cholecystectomy Hx of hysterectomy Family History Father No problems noted. Mother No problems noted. Social History Household Members: Family Are you a primary child care cook to a significant other at home: No Do you presently have visiting nurse or other home services: No Alcohol intake: never Patient Tobacco Use Status: Never used Tobacco Physical Exam Vital Signs: Last Vital Signs Pulse 68 09/22/24 10:10 BP 144/78 H 09/22/24 10:10 BMI result Body Mass Index 30.1 Assessment & Plan Assessment & Plan (1) Osteoporosis: Code(s): M81.0 - Age-related osteoporosis without current pathological fracture Category: Medical Qualifiers: Osteoporosis type: age-related Presence of current pathological fracture: without current pathological fracture Qualified Code(s): M81.0 - Age-related osteoporosis without current pathological fracture Plan: 73-year-old female with a history of severe osteoporosis and primary hyperparathyroidism status post parathyroidectomy with normalization of PTH and calcium. Secondary workup was negative. Patient has received oral bisphosphonate, Prolia and more recently Reclast in the past. She had fragility fractures of right wrist and clavicle in the past. She is currently on Tymlos Plan is to continue Tymlos for full 18 month course which would be until 10/2025. Will repeat DEXA in 8 months have patient follow up at 9 months (2) Postablative hypothyroidism: Code(s): E89.0 - Postprocedural hypothyroidism Category: Medical Plan: Currently on 75 mcg levothyroxine appears to be clinically and biochemically euthyroid Plan is to continue the current therapy. At this point, in terms of the hypothyroidism, patient can follow up with the primary care provider and returned back to endocrinology as needed Orders: Orders XR DEXA axial skeleton 8 Months M81.0 - Age-related osteoporosis without current pathological fracture Coding Level of Care Code Est Pt Level 4 (25303) Diagnoses Age-related osteoporosis without current pathological fracture M81.0 Osteoporosis type: age-related Presence of current pathological fracture: without current pathological fracture Postablative hypothyroidism E89.0
== END 2024-09-22 10:29 | disposition home or self-care (01) ==
PROVIDERS: PCP Registered Nurse; Visit Provider Internal Medicine Endocrinology, Diabetes & Metabolism
DX: M81.0 Age-related osteoporosis without current pathological fracture (principal); E89.0 Postprocedural hypothyroidism
CPT/HCPCS: 99214

== ENCOUNTER → 2024-09-22 10:09 | Outpatient (BNVA) | payer MEDICARE, SELFPAY | PROVIDERS: PCP Registered Nurse; Visit Provider Internal Medicine Endocrinology, Diabetes & Metabolism | DX: M81.0 Age-related osteoporosis without current pathological fracture (principal); E89.0 Postprocedural hypothyroidism | CPT/HCPCS: 99212 ==

== ENCOUNTER 2024-10-27 13:14 | Emergency (ER) | payer MEDICARE, SELFPAY ==
--- NOTE | 2024-10-27 | ECG_ITS ---
Test Reason : CP Blood Pressure : */* mmHG Vent. Rate : 81 BPM Atrial Rate : 81 BPM P-R Int : 136 ms QRS Dur : 84 ms QT Int : 384 ms P-R-T Axes : 8 -16 8 degrees QTcB Int : 446 ms Normal sinus rhythm Minimal voltage criteria for LVH, may be normal variant ( R in aVL ) Nonspecific ST abnormality Abnormal ECG When compared with ECG of 29-Apr-2024 18:32, No significant change was found Referred By: Generic ED Physician Electronically Signed By: Esvin Jacques
--- NOTE | ~2024-10-27 | XR_ITS ---
EXAMINATION: XR CHEST 2 VIEWS HISTORY: cough, sob, cp COMPARISON: Comparison is made with the prior examination dated 08/29/2024. FINDINGS: PA and lateral views of the chest are submitted. Again seen is elevation of the right hemidiaphragm. The lungs are clear. There is no pleural effusion, pneumothorax, or pulmonary vascular congestion. The heart is normal in size. Again seen is scoliosis of the spine. XR/XR chest 2V IMPRESSION: No acute cardiopulmonary abnormality. Electronically signed by: Pedro Luis Bill MD 10/27/2024 02:18 PM RINA
[2024-10-27 13:33] VITALS: BP 99/54; PULSE 79; RESP 18; TEMP 36.7; O2SAT 95; BMI 26.2
--- NOTE | 2024-10-27 13:36 | ED_ITS ---
HPI - SOB/Dyspnea General Chief Complaint: Chest Pain Stated Complaint: Chest pain Diff breathing Time Seen by Provider: 10/27/24 18:31 Source: patient Mode of arrival: ambulatory Limitations: no limitations History of Present Illness ED Provider: Earlene Travis PA-C HPI Narrative: Patient is a 74 year old assigned female at with a history of HTN and asthma presenting to the emergency department today with a cough, headache, chest pain, nausea, and vomiting. Patient states that over the last 2 days she has felt generally unwell with chest pain, a cough, nausea, vomiting, and headache. Patient denies any dizziness, lightheadedness, abdominal pain, fever, chills, blurry vision, double vision, loss of vision, difficulty breathing, shortness of breath, back pain, night sweats, pain with urination, increased urinary frequency, increased urinary urgency, blood in her urine or stool, syncope or a near syncopal episode, recent trauma or falls, bowel incontinence, bladder incontinence, or any other complaints at this time. Related Data Home Medications ?Medication ?Instructions ?Recorded ?Confirmed acetaminophen 500 mg tablet 1,000 mg PO Q6H PRN pain 10/27/20 09/22/24 atorvastatin 40 mg tablet 40 mg PO DAILY 10/27/20 09/22/24 cetirizine 10 mg tablet 10 mg PO DAILY PRN Allergic 10/27/20 09/22/24 Symptoms montelukast 10 mg tablet 10 mg PO DAILY 10/27/20 09/22/24 multivitamin 1 tab PO DAILY 10/27/20 09/22/24 zolpidem 10 mg tablet 10 mg PO BEDTIME PRN Sleep 10/27/20 09/22/24 ascorbate calcium (vitamin C) 500 1 g PO Q6H 03/28/22 09/22/24 mg tablet cyanocobalamin (vitamin B-12) 1,000 mcg PO QAM 06/12/23 09/22/24 1,000 mcg tablet amlodipine 2.5 mg tablet 2.5 mg PO DAILY 12/11/23 09/22/24 budesonide-formoterol HFA 160 inhalation 12/11/23 09/22/24 mcg-4.5 mcg/actuation aerosol inhaler citalopram 20 mg tablet 20 mg PO DAILY 12/11/23 09/22/24 mirtazapine 45 mg disintegrating 45 mg PO BEDTIME 12/11/23 09/22/24 tablet nebulizers 02/07/24 09/22/24 meloxicam 7.5 mg tablet 7.5 mg PO DAILY 06/13/24 09/22/24 Previous Rx's ?Medication ?Instructions ?Recorded calcium citrate 500 mg (2 x 250 mg calcium) PO BID 03/03/21 90 days #360 tabs cyclobenzaprine 10 mg tablet 10 mg PO TID PRN muscle spasm #14 11/15/21 tabs albuterol sulfate 2.5 mg/0.5 mL 5 mg inhalation Q4H PRN shortness 12/02/22 solution for nebulization of breath or wheezing #30 ea albuterol sulfate 90 mcg/actuation 2 inh inhalation Q4-6H PRN 06/21/23 breath activated powder inhaler shortness of breath or wheezing #1 ea albuterol sulfate 2.5 mg/3 mL 2.5 mg (3 mL) inhalation Q4-6H PRN 12/07/23 (0.083 %) solution for nebulization shortness of breath or wheezing #90 mL famotidine 20 mg tablet (Pepcid) 20 mg PO BEDTIME #90 tabs 12/11/23 linaclotide 290 mcg capsule 290 mcg PO QAM #90 caps 12/11/23 (Linzess) pantoprazole 40 mg tablet,delayed 40 mg PO DAILY #90 tabs 12/11/23 release umeclidinium 62.5 mcg/actuation 1 inh inhalation DAILY 30 days #30 02/07/24 blister powder for inhalation ea (Incruse Ellipta) levothyroxine 75 mcg tablet 75 mcg PO DAILY #30 tabs 03/19/24 abaloparatide (Tymlos) 80 mcg (0.04 mL) subcut DAILY 05/12/24 #1.56 mL pen needle, diabetic 31 gauge x #100 ea 05/16/2402/06 doxycycline hyclate 100 mg capsule 100 mg PO BID 10 days #20 caps 05/27/24 azithromycin 250 mg tablet See Rx Instructions PO .COMPLEX #6 08/29/24 (Zithromax Z-Lux) tabs guaifenesin 1,200 mg tablet, 1,200 mg PO BID #10 tabs 08/29/24 extended release 12 hr (Mucus-ER MAX) prednisone 20 mg tablet 40 mg (2 x 20 mg) PO DAILY #10 tabs 08/29/24 prednisone 20 mg tablet 20 mg PO DAILY 7 days #7 tabs 10/27/24 Allergies Allergy/AdvReac Type Severity Reaction Status Date / Time morphine [MORPHINE] Allergy Unknown RASH Verified 10/27/24 13:38 Review of Systems 2 Constitutional: Constitutional: Reports no additional constitutional complaints, Denies chills, Denies fever(s), Reports headache(s) and Denies night sweats Eyes: Eyes: Reports no additional eye complaints, Denies blurry vision, Denies change in vision, Denies diplopia, Denies eye discharge, Denies loss of vision and Denies eye pain ENT: Denies dizziness and Reports headache(s) Cardiovascular: Cardiovascular: Reports no additional cardiovascular complaints, Reports chest pain, Denies lightheadedness, Denies Loss of Consciousness and Denies dyspnea Respiratory: Respiratory: Reports no additional respiratory complaints, Reports cough and Denies dyspnea Gastrointestinal: Gastrointestinal: Reports no additional gastrointestinal complaints, Denies abdominal pain, Denies melena, Denies hematochezia, Denies change in bowel habits, Denies change in stool character, Reports nausea and Reports vomiting Genitourinary: Genitourinary: Denies hematuria, Denies urinary frequency, Denies dysuria, Denies urinary incontinence, Denies urinary hesitancy and Denies urinary urgency Musculoskeletal: Musculoskeletal: Reports no additional musculoskeletal complaints, Denies numbness and Denies tingling Neurologic: Denies dizziness, Reports headache(s), Denies loss of vision, Denies numbness and Denies tingling Psychiatric: Psychiatric: Reports no additional psychiatric complaints Endocrine: Endocrine: Reports no additional endocrine complaints Hematologic/Lymphatic: Hematologic/Lymphatic: Reports no additional hematologic/lymphatic complaints Allergic/Immunologic: Allergic/Immunologic: Reports no additional allergic/immunologic complaints PMFSH Past Medical History Attestation statement: The following information was validated with the patient. Source: old records reviewed and nursing notes reviewed Medical History Pulmonary nodules Allergies Kidney stone Back pain Arthritis HLD (hyperlipidemia) Hypothyroidism Diabetes Hypertension Asthma Hyperthyroidism Vitamin D deficiency Primary hyperparathyroidism Postablative hypothyroidism Surgical History History of craniotomy Hx of colonoscopy History of esophagogastroduodenoscopy (EGD) Hx of endoscopy S/P subtotal parathyroidectomy History of carpal tunnel release of both wrists Hx of cataract removal with insertion of prosthetic lens Hx of lithotripsy Hx of cholecystectomy Hx of hysterectomy Family History Family History Father No problems noted. Mother No problems noted. Social History Social History Household Members: Family Are you a primary skin care instructor to a significant other at home: No Do you presently have visiting nurse or other home services: No Alcohol intake: never Patient Tobacco Use Status: Never used Tobacco Advance Directives: No Advance Directives Information Provided: No Do you have a plan to hurt others: No Plan Physical Exam 2 Vital Signs: Vital Signs: Last Vital Signs Temp 98.2 F 10/27/24 18:40 Pulse 75 10/27/24 18:40 Resp 18 10/27/24 18:40 BP 104/71 10/27/24 18:40 Pulse Ox 93 10/27/24 18:40 O2 Del Method Room Air 10/27/24 18:40 BMI result Body Mass Index 26.2 Const: General: cooperative, no acute distress, alert and awake Nutritional Appearance: well nourished Orientation/consciousness: patient oriented x3 Limitations: no limitations HEENT: Head: Yes normal to inspection and Yes atraumatic Ears: hearing grossly normal bilaterally and external ears normal General nose exam: Normal external nose present, no nasal discharge noted and no epistaxis Face and sinus: Yes normal facial exam, No abrasion and No laceration Mouth: Normal oral and palatal mucosa present, no drooling and no muffled voice Eyes: General: appearance normal, both eyes and all related structures P eriorbital: periorbital findings normal Eyelids: Yes eyelids normal C onjunctivae: conjunctivae normal Pupils: Equal, round and reactive pupils present EOM: EOMs intact bilaterally Neck: Neck: Yes normal visual inspection, Yes full ROM and Yes no lymphadenopathy Chest: Chest palpation & inspection: normal inspection of the chest Resp: Effort & Inspection: normal respiratory effort and able to speak in complete sentences GI: Inspection: Yes normal to inspection Neuro: General: patient oriented x3 and moves all extremities Cranial nerves: Yes Equal, round and reactive pupils present Cognition (Neuro): n ormal cognition Extrem: General: Yes normal to inspection, Yes full ROM and Yes capillary refill normal Psych: Appearance: grossly normal Mental Status: mental status grossly normal Affect: normal affect Attitude: cooperative Thought process: N ormal thought process present Thought content: Normal thought content present Insight: Good insight present (Psych) Course Course Course Narrative: This is a Rapid Medical Exam performed in triage by Vikki Christian PA-C. Full HPI, ROS and PE to be performed by primary ED provider. 74-year-old female with a past medical history of asthma, osteoporosis presenting to the ED c/o prod cough, chills, CP, fever, N/V/D x2 days. +sick contacts PE: Coarse cough appreciated. Diffuse expiratory wheeze. Plan: EKG, labs, viral testing, CXR, rapid strep, ED bronch protocol Medications Administered Discontinued Medications Generic Name Dose Route Start Last Admin Trade Name Freq PRN Reason Stop Dose Admin Albuterol Sulfate 2.5 mg/ 0 mg 10/27/24 13:54 10/27/24 13:58 Albuterol/Ipratropium 3 ml INHALE 10/27/24 13:55 1 dose ONCE ONE Administration Medical Decision Making Medical Decision Making [facility] Narrative: Patient is a 74 year old assigned female at with a history of HTN and asthma presenting to the emergency department today with a cough, headache, chest pain, nausea, and vomiting. Patient's physical exam was unremarkable. Patient's blood work was unremarkable. Patient's EKG was unremarkable. Patient's chest x-ray showed no acute process. Patient's COVID-19 test was positive. I explained my physical exam findings as well as all test results to the patient. I answered all questions asked by the patient. Patient received a breathing treatment which, upon re-evaluation, she stated it helped her symptoms significantly. I stressed the importance of the patient taking her medication as directed (either prescribed or as the over the counter packaging recommends). I stressed the importance of the patient following up with her primary care provider. I stressed the importance of the patient returning to the emergency department immediately if her symptoms were to worsen or if she were to develop any dizziness, shortness of breath, difficulty breathing, chest pain, blurry vision, loss of vision, nausea, vomiting, abdominal pain, fever, chills, back pain, or any other complaints. Patient verbalized agreement and understanding with this treatment plan and discharge. Differential Diagnosis Differential Diagnoses: The differential diagnosis associated with the presentation includes COVID-19 URI Viral illness NSTEMI STEMI Influenza Admission/Observation Consideration of admission/observation: Escalation of care including admission/observation considered Patient would have been admitted to the hospital had her work up had any findings where hospital admission was appropriate and her clinical presentation warranted hospital admission. Lab Data [facility] Lab Attestation statement: I reviewed the patient's lab results. My interpretation of these results are in the MDM Rationale portion of this note. 10/27/24 15:38 10/27/24 15:38 Labs: Lab Results 10/27/24 Range/Units 15:38 WBC 5.4 (4.8-10.8) X10*3/uL RBC 4.12 L (4.20-5.50) X10*6/uL Hgb 12.6 (12.0-16.0) g/dl Hct 39.0 (37.0-47.0) % MCV 94.7 (80.0-98.0) fL MCH 30.6 (27.0-33.0) pg MCHC 32.3 (31.0-35.0) g/dl RDW 15.9 (11.0-16.0) % Plt Count 178 (160-400) X10*3/uL MPV 10.1 (9.4-12.3) fL Immature Gran % (Auto) 0.2 (0.0-0.4) % Neut % (Auto) 58.8 (45-73) % Lymph % (Auto) 26.6 (20-40) % Ada % (Auto) 13.5 H (2-11) % Eos % (Auto) 0.7 (0-4) % Baso % (Auto) 0.2 (0-2) % Lymph # (Auto) 1.4 (1.2-4.9) X10*3/uL Ada # (Auto) 0.7 (0.1-1.2) X10*3/uL Eos # (Auto) 0.0 (0.0-0.4) X10*3/uL Baso # (Auto) 0.0 (0.0-0.2) X10*3/uL Abs Immat Gran (auto) 0.01 (0.00-0.03) X10*3/uL Absolute Neuts (auto) 3.2 (2.0-8.3) x10*3/uL Absolute Nucleated RBC 0.000 (0.0-0.012) X10*3/uL Nucleated RBC % (auto) 0.0 (0.0-0.2) /100WBC Sodium 141 (135-145) mmol/L Potassium 4.2 (3.3-5.1) mmol/L Chloride 104 (96-108) mmol/L Carbon Dioxide 25 (22-29) mmol/L Anion Gap 16 (12-20) BUN 28 H (9-16) mg/dL Creatinine 1.01 (0.5-1.4) mg/dL Estim Creat Clear Calc 41.9 Estimated GFR 53 Random Glucose 83 (60-115) mg/dL Calcium 8.3 L D (8.4-10.2) mg/dL Magnesium 1.9 (1.6-2.6) mg/dL Total Bilirubin 0.5 (0.0-1.0) mg/dL Direct Bilirubin 0.2 (0.0-0.5) mg/dL AST 49 H (5-31) U/L ALT 41 H (0-31) U/L Alkaline Phosphatase 73 (39-117) U/L Troponin I High Sens 2.9 (<3.5-17.0) ng/L B-Natriuretic Peptide 15 (<100) pg/mL Total Protein 7.5 (6.5-8.0) g/dL Albumin 3.9 (3.5-5.0) g/dL Influenza Type A (PCR) NEGATIVE (Negative) Influenza Type B (PCR) NEGATIVE (Negative) RSV RNA Qual (PCR) NEGATIVE (Negative) SARS-CoV-2 RNA (RT-PCR) POSITIVE A (Negative) S. pyogenes GrpA GISSELLE Negative (Negative) Independent Interpretation I performed an independent interpretation of an: EKG and Plain X-Ray Interpretation: My interpretation is in agreement with the radiologist's impression of this imaging study. L EXAMINATION: XR CHEST 2 VIEWS HISTORY: cough, sob, cp COMPARISON: Comparison is made with the prior examination dated 08/29/2024. FINDINGS: PA and lateral views of the chest are submitted. Again seen is elevation of the right hemidiaphragm. The lungs are clear. There is no pleural effusion, pneumothorax, or pulmonary vascular congestion. The heart is normal in size. Again seen is scoliosis of the spine. XR/XR chest 2V IMPRESSION: No acute cardiopulmonary abnormality. Electronically signed by: Pedro Luis Bill MD 10/27/2024 02:18 PM EST Dictated By: Pedro Luis Bill MD Signed By: Electronically signed by Pedro Luis Bill MD 10/27/24 1418 I independently interpreted this EKG and am in agreement with the below findings: Vent. Rate: 81 BPM Atrial Rate: 81 BPM P-R Int: 136 ms QRS Dur: 84 ms QT Int: 384 ms P-R-T Axes: 8 -16 8 degrees QTcB Int: 446 ms Normal sinus rhythm Minimal voltage criteria for LVH, may be normal variant ( R in aVL ) Nonspecific ST abnormality When compared with ECG of 29-Apr-2024 18:32, No significant change was found Referred By: Generic ED Physician Electronically Signed By: Esvin Jacques Dictated By: Esvin Jacques MD Signed By: Electronically signed by Esvin Jacques MD 10/27/24 1456 Radiology Impression Discussion of test interpretation with radiology: I have reviewed the radiologist's reading. Discharge Plan Discharge Clinical Impression: COVID-19, Asthma Patient Disposition: Home, Self-Care Instructions: Asthma (DC), COVID-19 (Coronavirus Disease 2019) (ED) Additional Instructions: Follow up with your primary care provider. Return to the emergency department immediately if your symptoms worsen or if you develop any dizziness, shortness of breath, difficulty breathing, chest pain, blurry vision, loss of vision, nausea, vomiting, abdominal pain, fever, chills, back pain, or any other complaints. Javan?seguimiento?con sanchez m?dico de atenci?n primaria. Acuda inmediatamente al servicio de urgencias si erika s?ntomas empeoran o si presenta falta de aliento, dificultad para respirar, dolor tor?cico, mareos, aturdimiento, dolor de espalda, dolor abdominal, fiebre, escalofr?os o cualquier otro s?ntoma. Prescriptions: New prednisone 20 mg tablet 20 mg PO DAILY 7 Days Qty: 7 0RF No Action Tymlos 80 mcg (3,120 mcg/1.56 mL) pen injector 80 mcg subcut DAILY Qty: 1.56 12RF Rx Instructions: inject into abdomen; do not inject within 2 inches of belly button/navel; rotate sites (DME) pen needle, diabetic 31 gauge x 5/16 needle See Rx Instructions .Route Qty: 100 3RF Rx Instructions: As directed may substitute for daily use cyclobenzaprine 10 mg tablet 10 mg PO TID PRN (Reason: muscle spasm) Qty: 14 0RF albuterol sulfate 2.5 mg/0.5 mL solution for nebulization 5 mg inhalation Q4H PRN (Reason: shortness of breath or wheezing) Qty: 30 0RF azithromycin [Zithromax Z-Lux] 250 mg tablet See Rx Instructions .ROUTE .COMPLEX Qty: 6 0RF Rx Instructions: take 500 mg today (day 1), then 250 mg for 4 days (days 2-5) prednisone 20 mg tablet 40 mg PO DAILY Qty: 10 0RF guaifenesin [Mucus-ER MAX] 1,200 mg tablet extended release 12hr 1,200 mg PO BID Qty: 10 0RF albuterol sulfate 90 mcg/actuation aerosol powdr breath activated 2 inh inhalation Q4-6H PRN (Reason: shortness of breath or wheezing) Qty: 1 0RF albuterol sulfate 2.5 mg /3 mL (0.083 %) solution for nebulization 2.5 mg inhalation Q4-6H PRN (Reason: shortness of breath or wheezing) Qty: 90 0RF zolpidem 10 mg tablet 10 mg PO BEDTIME PRN (Reason: Sleep) atorvastatin 40 mg tablet 40 mg PO DAILY montelukast 10 mg tablet 10 mg PO DAILY cetirizine 10 mg tablet 10 mg PO DAILY PRN (Reason: Allergic Symptoms) multivitamin Tablet 1 tab PO DAILY acetaminophen 500 mg tablet 1,000 mg PO Q6H PRN (Reason: pain) calcium citrate 250 mg calcium tablet 500 mg PO BID 90 Days Qty: 360 1RF ascorbate calcium (vitamin C) 500 mg tablet 1 g PO Q6H citalopram 20 mg tablet 20 mg PO DAILY mirtazapine 45 mg tablet,disintegrating 45 mg PO BEDTIME budesonide-formoterol 160-4.5 mcg/actuation HFA aerosol inhaler inhalation amlodipine 2.5 mg tablet 2.5 mg PO DAILY famotidine [Pepcid] 20 mg tablet 20 mg PO BEDTIME Qty: 90 3RF Linzess 290 mcg capsule 290 mcg PO QAM Qty: 90 4RF pantoprazole 40 mg tablet,delayed release (DR/EC) 40 mg PO DAILY Qty: 90 2RF Rx Instructions: libby un comprimido media hora antes del desayuno levothyroxine 75 mcg tablet 75 mcg PO DAILY Qty: 30 5RF meloxicam 7.5 mg tablet 7.5 mg PO DAILY (DME) nebulizers Misc See Rx Instructions .Route Rx Instructions: As directed Incruse Ellipta 62.5 mcg/actuation blister with device 1 inh inhalation DAILY 30 Days Qty: 30 11RF cyanocobalamin (vitamin B-12) 1,000 mcg tablet 1,000 mcg PO QAM doxycycline hyclate 100 mg capsule 100 mg PO BID 10 Days Qty: 20 0RF Referrals: Pat Juan, [employer] [Primary Care Provider] - Interventions: ED Discharge Assessment Last Done: 10/27/24 18:40 Print Language: Polish
[2024-10-27 13:58] VITALS: PULSE 79; RESP 18; O2SAT 96
[2024-10-27] MEDS: Albuterol Sulfate 2.5 MG, Albuterol/Iprat 2.5/0.5MG 3 ML 3 ML INHALE (13:58)
[2024-10-27 15:46] LABS: MANUAL DIFF FLAG NO
[2024-10-27 15:48] LABS: Basophils Percent Auto 0.2 % (0-2); Eosinophils Percent Auto 0.7 % (0-4); Hemoglobin 12.6 g/dl (12.0-16.0); Imm Gran Abs Auto 0.01 X10*3/uL (0.00-0.03); Imm Gran Pct Auto 0.2 % (0.0-0.4); Lymphocytes Absolute Auto 1.4 X10*3/uL (1.2-4.9); Lymphocytes Percent Auto 26.6 % (20-40); Mean Corpuscular HGB Conc 32.3 g/dl (31.0-35.0); Mean Corpuscular Hemoglobin 30.6 pg (27.0-33.0); Mean Corpuscular Volume 94.7 fL (80.0-98.0); Mean Platelet Volume 10.1 fL (9.4-12.3); Monocytes Absolute Auto 0.7 X10*3/uL (0.1-1.2); Monocytes Percent Auto 13.5 % (2-11); Neutrophils Absolute Auto 3.2 x10*3/uL (2.0-8.3); Neutrophils Percent Auto 58.8 % (45-73); Platelet Count 178 X10*3/uL (160-400); Red Blood Count 4.12 X10*6/uL (4.20-5.50); Red Cell Distribution Width 15.9 % (11.0-16.0); White Blood Count 5.4 X10*3/uL (4.8-10.8)
[2024-10-27 15:56] LABS: IDNOW Serial# 08D9AD1C; Strep A Nucleic Acid Negative (Negative)
[2024-10-27 16:08] LABS: Alanine Aminotransferase 41 U/L (0-31); Albumin Level 3.9 g/dL (3.5-5.0); Alkaline Phosphatase 73 U/L (39-117); Anion Gap 16 (12-20); Aspartate Amino Transferase 49 U/L (5-31); Bilirubin Direct 0.2 mg/dL (0.0-0.5); Bilirubin Total 0.5 mg/dL (0.0-1.0); Blood Urea Nitrogen 28 mg/dL (9-16); Calcium 8.3 mg/dL (8.4-10.2); Carbon Dioxide 25 mmol/L (22-29); Chloride 104 mmol/L (96-108); Creatinine Clr Calc Pharmacy 41.9; Estimated Glomerular Filt Rate 53; Glucose Random 83 mg/dL (60-115); Magnesium 1.9 mg/dL (1.6-2.6); Potassium 4.2 mmol/L (3.3-5.1); Sodium 141 mmol/L (135-145); Total Protein 7.5 g/dL (6.5-8.0)
[2024-10-27 16:13] LABS: B Type Natriuretic Peptide 15 pg/mL (<100); Troponin-I High Sensitivity 2.9 ng/L (<3.5-17.0)
[2024-10-27 16:28] LABS: Influenza A PCR NEGATIVE (Negative); Influenza B PCR NEGATIVE (Negative); Resp Syncy Virus RNA Qual PCR NEGATIVE (Negative); SARS COV2 PCR INHOUSE POSITIVE (Negative)
[2024-10-27 18:40] VITALS: BP 104/71; PULSE 75; RESP 18; TEMP 36.8; O2SAT 93
== END 2024-10-27 18:47 | disposition home or self-care (01) ==
LOC: HO.ED 18:39
PROVIDERS: Physician Assistant; Emergency Provider Emergency Medicine Emergency Medical Services; PCP Registered Nurse
DX: U07.1 COVID-19 (principal); J45.909 Unspecified asthma, uncomplicated; R07.89 Other chest pain; R06.02 Shortness of breath; R05.9 Cough, unspecified; R11.2 Nausea with vomiting, unspecified; Z79.899 Other long term (current) drug therapy
CPT/HCPCS: 0241U; 71046; 80048; 80076; 83735; 83880; 84484; 85025; 87651; 93005; 94640; 99284

== ENCOUNTER → 2024-10-27 13:26 | Outpatient (BNV) | payer MEDICARE, SELFPAY | PROVIDERS: PCP Registered Nurse; Visit Provider Internal Medicine Cardiovascular Disease | DX: R94.31 Abnormal electrocardiogram [ECG] [EKG] (principal) | CPT/HCPCS: 93010 ==

== ENCOUNTER → 2024-10-27 13:38 | Outpatient (BNV) | payer MEDICARE, SELFPAY | PROVIDERS: PCP Registered Nurse; Visit Provider Radiology Diagnostic Radiology | DX: R06.02 Shortness of breath (principal) | CPT/HCPCS: 71046 ==

== ENCOUNTER 2024-11-12 09:37 | Outpatient (AMB) | payer MEDICARE, SELFPAY ==
--- NOTE | 2024-11-12 09:39 | A.OFFVIS_ITS ---
Vital Signs 11/12/24 09:40 Height 4 ft 11 in Weight 144 lb 6.444 oz BMI 29.2 BP 130/78 Blood Pressure Location Lt brachial Position Sitting Pulse 76 Pulse Source Pulse Oximeter Pulse Oximetry (%) 96 Oxygen Delivery Method Room Air Intake Visit Reasons: Asthma Allergies morphine [MORPHINE] Allergy (Unknown, Verified 10/27/24 13:38) RASH HPI Comments Details: The patient is a 74 year woman known history of asthma now with worsening asthma symptoms. The patient states that she was in her usual state health until she had her 1st baby. After her she started developing asthma symptoms since she started using inhalers. The patient most recently was evaluated in the ER back in November 2023 for an asthma exacerbation. At that point she was having also flu-like symptoms and she was positive for the flu. She was treated with Tamiflu. Prior to that she had been evaluated in the ER back in June for an asthma exacerbation. She did have a chest x-ray demonstrating no significant abnormalities except for a slightly elevated left hemidiaphragm. She also has had imaging studies including a CT scan of the chest which I personally reviewed from 2019 demonstrating multiple pulmonary nodules which were benign appearance and appeared to be stable when compared to previous CT scans from 2016. The patient states that she does have underlying allergies. She has never been treated for allergies. I did review her blood work she does have significant eosinophilia suggesting eosinophilic asthma. She still has some wheezing on examination will try to optimize her respiratory therapy by adding a long-acting muscarinic antagonist. The patient may also be a candidate biologics if she continues to require prednisone have frequent exacerbations. 05/27/2024 the patient is here for pulmonary follow-up visit. Overall the patient has been doing well. Unfortunately in February she did develop RSV in signi ficant asthma symptoms. she is feeling better now that she has a productive cough with yellow phlegm. Moderate severity. She has responded well to the current respiratory regimen. Blood work was done. She does have some degree of eosinophilia. Although her asthma seems to be better control on the current respiratory if it was not for the RSV infection. She did have a chest x-ray beginning of 05/13/2024. Seems to have some pulmonary congestion. Therefore, will go ahead and treat her with doxycycline for postop bacterial infection. She is going to continue with the current respiratory regimen. For now there is no need to start her on biologics. Will reassess in the spring. 11/12/2024 the patient is here for pulmonary follow-up visit. The patient overall is feeling little better. She recently had COVID back in beginning of the month. She started developing chest congestion. She went to the ER was given some antibiotics and prednisone. The patient now is better although she still coughing still having school congestion [id number] severity. She is using her respiratory therapy. I did review her chest x-ray without any acute disease although she does have a slight elevation of the right hemidiaphragm which she has had before. Will go ahead and put her back on doxycycline treat her further for post viral bacterial infections. She will continue with respiratory therapy. She does not need any prednisone at this time. Also to note the patient is also complaining of some abdominal discomfort. Her LFTs were elevated likely secondary to COVID. I will have her get some blood work if her symptoms persist or they worsen. If her symptoms worsen she will call for an earlier assessment. [facility] Medical History (Updated 11/12/24 @ 09:54 by Roberto España MD) Transaminitis Pulmonary nodules Allergies Kidney stone Back pain Arthritis HLD (hyperlipidemia) Hypothyroidism Diabetes Hypertension Asthma Hyperthyroidism Vitamin D deficiency Primary hyperparathyroidism Postablative hypothyroidism Surgical History History of craniotomy Hx of colonoscopy History of esophagogastroduodenoscopy (EGD) Hx of endoscopy S/P subtotal parathyroidectomy History of carpal tunnel release of both wrists Hx of cataract removal with insertion of prosthetic lens Hx of lithotripsy Hx of cholecystectomy Hx of hysterectomy Family History Father No problems noted. Mother No problems noted. Social History Household Members: Family Are you a primary medicare sales representative to a significant other at home: No Do you presently have visiting nurse or other home services: No Alcohol intake: never Patient Tobacco Use Status: Never used Tobacco Review of Systems Const Denies weight gain and Denies weight loss ENT Reports no additional complaints, Reports nasal congestion and Reports nasal discharge Card Reports no additional complaints Resp Reports chest congestion, Reports cough and Reports wheezing GI Denies abdominal pain Musc Reports no additional complaints Neuro Reports no additional complaints Psych Reports no additional complaints Endo Reports no additional complaints Aller/Immun Reports wheezing Physical Exam Vital Signs: Last Vital Signs Pulse 76 11/12/24 09:40 BP 130/78 11/12/24 09:40 Pulse Ox 96 11/12/24 09:40 Oxygen Delivery Method Room Air 11/12/24 09:40 BMI result Body Mass Index 29.2 Const General: healthy appearing, no acute distress and well developed Nutritional Appearance: well nourished Orientation/consciousness: patient oriented x3 HEENT Head: Yes normocephalic Neck Neck: Yes supple Chest Chest palpation & inspection: normal inspection of the chest Resp Effort & Inspection: normal respiratory effort Auscultation: no wheezes and diminished lung sounds Cardio Rate: regular rate GI Inspection: No distended Palpation (GI): Soft to palpation General: Yes no CVA tenderness Back/Spine/Pelvis Back: no CVA tenderness Skin General skin exam: no rashes or lesions noted Neuro General: patient oriented x3 Extrem General: Yes no clubbing, cyanosis or edema Psych Appearance: grossly normal Mental Status: mental status grossly normal Assessment & Plan Assessment & Plan (1) Asthma: Code(s): J45.909 - Unspecified asthma, uncomplicated Category: Medical Qualifiers: Asthma complication type: uncomplicated Asthma persistence: persistent Asthma severity: moderate Qualified Code(s): J45.40 - Moderate persistent asthma, uncomplicated (2) Allergies: Code(s): T78.40XA - Allergy, unspecified, initial encounter Category: Medical Qualifiers: Encounter type: initial encounter Qualified Code(s): T78.40XA - Allergy, unspecified, initial encounter (3) Pulmonary nodules: Comment: subcentemeter, stable 2016 to 2019 Code(s): R91.8 - Other nonspecific abnormal finding of lung field Category: Medical (4) Transaminitis: Code(s): R74.01 - Elevation of levels of liver transaminase levels Category: Medical (5) Bronchitis: Code(s): J40 - Bronchitis, not specified as acute or chronic Category: Medical Plan continue Symbicort continue Incruse MARCO as needed continue Zyrtec continue Singulair add doxycycline F/U 6-8 months Orders: Orders Basic Metabolic Panel Today R74.01 - Elevation of levels of liver transaminase levels Liver Panel Today R74.01 - Elevation of levels of liver transaminase levels Lipase Today R74.01 - Elevation of levels of liver transaminase levels Medications: Refilled doxycycline hyclate 100 mg PO BID 20 caps 0RF 10 days Coding Level of Care Code Est Pt Level 4 (00623) Diagnoses Moderate persistent asthma without complication J45.40 Asthma complication type: uncomplicated Asthma persistence: persistent Asthma severity: moderate Allergy, initial encounter T78.40XA Encounter type: initial encounter Pulmonary nodules R91.8 Transaminitis R74.01 Bronchitis J40 Time Spent (min) 17
[2024-11-12 09:40] VITALS: BP 130/78; PULSE 76; O2SAT 96; BMI 29.2
--- OUTSIDE RECORDS SUMMARY | 2024-11-12 09:55 | XMS_ITS | Clinical Summary ---
Author Organization [facility] Address [address] [place] [address] Care Team Providers Care Fan Engine Engineer Name Role Phone Unavailable Primary Care Provider Unavailabl e Source Comments PLEASE NOTE, if this patient is a minor, it may be UNLAWFUL to discuss sensitive information that is contained in these records (such as FAMILY PLANNING, MENTAL HEALTH or SUBSTANCE ABUSE) with the minor patient's parent or other person without the patient's specific authorization.[facility] Immunizations Name Administration Dates Next Due Moderna COVID-19 Vaccine, re d cap blue label, 12+ Primary Series 01/12/2021,12/15/2020 Social History Tobacco Use Types Packs/Day Years Used Date Smoking Tobacco: Never Assessed Social Connections Answer Date Recorded Social Connections and Isolation 0 12/15/2020 Financial Resource Strain Answer Date R ecorded Financial Resource Strain 0 2020 Stress Answer Date Recorded Stress 0 12/15/2020 Physical Activity Answer Date Recorded Physical Activity 0 12/15/2020 Food Insecurity Answer Date Recorded Food 0 12/15/2020 Transportation Needs Answer Date Record ed Transportation 0 12/15/2020 Housing Stability Answer Date Recorded Housing 0 12/15/2020 Safety and Environment Answer Date Bernard rded Safety 0 12/15/2020 Utilities Answer Date Recorded Utilities 0 12/15/2020 Employment Answer Date Recorded Employment 0 12/15/2020 Comments Unknown Sex and Gender Information Value Date Recorded Sex Assigned at Not on file Legal Sex Female 12:56 PM PDT Gender Identity Not on file Sexual Orientation Not on file Plan of Treatment Health Maintenance Due Date Last Done Comments Hepatitis C Screening 1950 Tobacco Screening 1950 Hypertension Screening (#1) 1966 Bone Density Screening 2013 Falls Prevention 2013 Imm-Zoster, Recombinant (2 of 3) 01/18/2015 11/24/19 15 Imm-DTaP/Tdap/Td (2 - Td or Tdap) 07/04/2021 011 Aig-FIMPZ-76 (2023- season) 2024 021, 12/15/2020 Imm-Influenza (#1) 2024 08/13/2019, 1 10/07/2016, 06/17/2015, Additional history exists Alcohol and Drug Screen 09/24/2024 Depression Annual Screen 09/24/2024 Imm-Pneumococcal 65+ Completed 08/07/2017, 09/02/2015, 09/26/2007 Insurance [facility] Member Subscriber Plan / Payer (Ef fective 2009-Present) Name:Hedy Davis Relation to Subscriber:Self Name:Hedy Davis Payer ID:[id number] Type:Indemnity Address: [facility] [id number] [place] [address] HEALTH SAFETY NET
--- OUTSIDE RECORDS SUMMARY | 2024-11-12 09:55 | XMS_ITS | Encounter Summary ---
Author Organization [employer] Address [address] [place] [address] Care Team Providers Care Post Adoption Coordinator Name Role Phone [facility] Primary Care Provider [phone] Reason for Visit * Reason Comments Med Refill Encounter Details Date Type Department Care Team ([facility] st Contact Info) Description 11/06/2022 Refill [facility] [address] [place] [address] [place] [facility] [address] [place], [place] [phone] Depressive disorder Social History Tobacco Use Types Packs/Day Years Used Date Smoking Tobacco: Never Smokeless Tobacco: Never Alcohol Use Standard Drinks/Week Comments Never 0 (1 standard drink = 0.6 oz pur e alcohol) Comments Unknown Sex and Gender Information Value Date Recorded Sex Assigned at Female 07/24/2022 10:16 AM EDT Legal Sex Female 10:16 AM EDT Gender Identity Female 07/24/2022 10:16 AM EDT Sexual Orientation Straight 07/24/2022 10 :16 AM EDT COVID-19 Exposure Response Date Recorded In the last 10 days, have yo u been in contact with someone who was confirmed or suspected to have Coronavirus/COVID-19? No / Unsure 10/24/2022 9:39 AM EST documented as of this encounter Plan of Treatment Not on file documented as of this encounter Visit Diagnoses Diagnosis Depressive disorder Depressive disorder, not elsewhere classified documented in this encounter Additional Health Concerns Assessment Noted Time PHQ-9 Depression Total Score: 0 10/24/19 23 10:40 AM EST documented as of this encounter Care Teams Post Adoption Coordinator Relationship Specialty Start Date End Date Pat Juan [facility] [address] [place] [address] PCP - General Family Medicine 05/04/22 documented as of this encounter
--- OUTSIDE RECORDS SUMMARY | 2024-11-12 09:55 | XMS_ITS | Encounter Summary ---
Author Organization [employer] Address [address] [place] [address] Care Team Providers Care Machine Cementer And Folder Name Role Phone [facility] Primary Care Provider Encounter Details Date Type Department Care Team (Late st Contact Info) Description 10/30/2024 10:15 AM EST Telemedicine [facility] [address] [place], [place] [phone] Delmy Morales MD [address] [place], [place] [phone] COVID-19 (Primary Dx); Asthma, unspecified asthma severity, unspecified whether complicated, unspecified whether persistent Social History Tobacco Use Types Packs/Day Years Used Date Smoking Tobacco: Never Smokeless Tobacco: Never Alcohol Use Standard Drinks/Week Comments Never 0 (1 standard drink = 0.6 oz pur e alcohol) Alcohol Answer Date Recorded Frequency of Alcohol Consumption Not on file 03/19/2024 Average Number of Drinks Not on file 024 Frequency of Binge Drinking Not on file 02/23 Score 0 03/19/2024 Depression Answer Date Recorded Patient Health Questionnaire-9 Score 0 03/19/2024 Patient Health Questionnaire-9 Score 0 03/19/2024 Last PHQ-9: Questionnaire Data Not on file 0 03/19/2024 Housing Stability Answer Date Recorded What is your housing situation today? I have john see 07/09/[address] you li ve. Do you have problems with any of the following? None of the above 07/09/2023 Food Insecurity Answer Date Recorded Within the past 12 months, y ou worried that your food would run out before you got money to buy more: Never True 07/09/2023 Within the past 12 months,th e food you bought just didn't last and you didn't have enough money to get more: Never True Transportation Answer Date Recorded In the past 12 months, has l ack of transportation kept you from medical appts, meetings, work or from getting things needed for daily living? No 07/09/2023 Utilities Answer Date Recorded In the past 12 months, has t he electric, gas, oil or water company threatened to shut off services in your home? No 07/09/2023 Depression Answer Date Recorded Patient Health Questionnaire-2 Score 0 03/19/2024 Comments Unknown Sex and Gender Information Value Date Recorded Sex Assigned at Female 07/24/2022 10:16 AM EDT Legal Sex Female 10:16 AM EDT Gender Identity Female 07/24/2022 10:16 AM EDT Sexual Orientation Straight 07/24/2022 10 :16 AM EDT documented as of this encounter Progress Notes * Delmy Morales MD - 10/30/2024 10:15 AM EST SUBJECTIVE: Hedy Davis is a 74 y.o. year old female who presents for follow up. Denies recent illness, injury, or hospitalization. Patient today on a telehealth visit for fu on ED discharge. Pt seen at ED on 10/27/24 with cough and chest pain, found with Covid-19, her O2 stat was 93%, BMP showed a GFR of 53 and otherwise was normal. CMP and LFTs were slightly high in the 40s, she had negative troponins and BNP. Chest XR and EKG were within normal limits. Pt was discharged on Prednisone. She is feeling slightly better, and reports the headaches to have gotten slightly better, but continues with a cough. She continues use of Albuterol pump daily and continues on Symbicort. Her symptoms reportedly began 10/26/24, with vomiting and diarrhea. She has been drinking Pedialyte and lots of water. She has an appointment with [facility] this month. She is not working currently. She lives with her and daughter. Acute Concerns: Social History Social History Narrative Current living environment: Lives with daughter, Ada Children: 3 children, 1 in [place], son in [place] Tobacco Use: None Alcohol Use: None Marijuana Use: None Other drug use: None Patient Active Problem List Diagnosis Asthma Cobalamin deficiency Depression, unspecified Dyslipidemia Primary hypertension Gastroesophageal reflux disease Hypothyroidism Osteoporosis Type 2 diabetes mellitus ([facility]) Healthcare maintenance Chronic idiopathic constipation Numbness and tingling in left hand Mild anxiety Meningioma ([facility]) Influenza-like symptoms Chronic nonintractable headache Cough in adult patient COVID-19 No family history on file. Review of Systems Constitutional: Negative for chills, fatigue and fever. HENT: Negative for congestion, ear pain, nosebleeds, rhinorrhea, sinus pressure, sore throat and trouble swallowing. Eyes: Negative for pain and discharge. Respiratory: Positive for cough. Negative for chest tightness and shortness of breath. Cardiovascular: Negative for chest pain, palpitations and leg swelling. Gastrointestinal: Negative for abdominal pain, blood in stool, constipation, diarrhea and nausea. Endocrine: Negative for polydipsia and polyuria. Genitourinary: Negative for dysuria, frequency, genital sores, pelvic pain and vaginal discharge. Musculoskeletal: Negative for back pain and neck pain. Skin: Negative for rash. Allergic/Immunologic: Negative for environmental allergies. Neurological: Positive for headaches. Negative for dizziness, seizures, weakness and light-headedness. Hematological: Negative for adenopathy. Psychiatric/Behavioral: Negative for agitation, behavioral problems, self-injury and suicidal ideas. OBJECTIVE: There were no vitals filed for this visit. Physical Exam Problem List Items Addressed This Visit COVID-19 - Primary Pt on 5th day of Covid symptoms, slowly improving, not prescribed with Paxlovid, no indication for other antiviral treatment at this time. Increase Symbicort to que 6 hours prn SOB/cough and hold Albuterol INH and solution. FU with Pulmonology on 11/11/24. Take Tylenol prn headache, body aches, all pains. Re consult prn worsening of symptoms, recurrence of fever. Asthma Mild exacerbation due to Covid infection. Increase Symbicort to Que 6 hours prn SOB/cough. FU with [facility]. Relevant Medications budesonide-formoterol (Symbicort) 160-4.5 MCG/ACT inhaler Follow Up: Current Outpatient Medications on File Prior to Visit Medication Sig Dispense Refill albuterol (2.5 MG/3ML) 0.083% nebulizer solution INHALE 3ML BY NEBULIZATION ROUTE EVERY 6 HOURS IF NEEDED 90 mL 2 albuterol 108 (90 Base) MCG/ACT inhaler INHALE 2 PUFFS BY MOUTH EVERY 4 HOURS IF NEEDED 8.5 g 0 amLODIPine (Norvasc) 2.5 MG tablet Take 1 tablet (2.5 mg) by mouth Once per day. 90 tablet 3 ascorbic acid (Vitamin C) 500 mg chewable tablet takes 1 tablet once a day by endo atorvastatin (Lipitor) 40 MG tablet TAKE 1 TABLET BY MOUTH EVERY DAY 30 tablet 11 Blood Glucose Monitoring Suppl (ONE TOUCH ULTRA 2) w/Device kit Test 1 times by intradermal route every day Blood Pressure kit Use by on arm route 1-2 times every day Calcium-Vitamin D-Vitamin K 500-1000-40 MG-UNT-MCG chewable tablet takes 1 tablet twice a day, endo cetirizine (ZyrTEC) 10 MG tablet TAKE 1 TABLET BY MOUTH EVERY DAY NEEDED FOR ALLERGIES 90 tablet0 citalopram (CeleXA) 20 MG tablet Take 1 tablet (20 mg) by mouth Once per day. 90 tablet 3 cyanocobalamin (Vitamin B-12) 1000 MCG tablet TAKE 1 TABLET BY MOUTH EVERY MORNING 30 tablet 5 famotidine (Pepcid) 20 MG tablet Take 1 tablet by mouth at bedtime. glucose blood (ZaiseoulTouch Ultra) test strip USE 1 STRIP by DIRECTED route every day levothyroxine (Synthroid) 75 MCG tablet Take 1 tablet (75 mcg) by mouth before breakfast. 30 [id number] lidocaine (Lidoderm) 5 % patch APPLY 1 PATCH TOPICALLY EVERY DAY. REMOVE AND DISCARD AFTER 12 HOURSOR DIRECTED BY MD 30 patch 1 Linzess 290 MCG capsule Take 1 capsule by mouth in the morning. LORazepam (Ativan) 0.5 MG tablet Take 1 tablet (0.5 mg) by mouth See administration instructions for 2 days. Take one tablet 30 minutes - 1 hour before flying on 07/01/24, may repeat dose X1 after 4 hours. 4 tablet 0 meloxicam (Mobic) 7.5 MG tablet TAKE 1 TABLET BY MOUTH EVERY DAY 30 tablet 0 mirtazapine (Remeron Eliana-Tab) 45 MG disintegrating tablet TAKE 1 TABLET BY MOUTH DAILY AT BEDTIME 30 tablet 0 montelukast (Singulair) 10 MG tablet TAKE 1 TABLET BY MOUTH EVERY DAY 30 tablet 5 Multiple Vitamin (Multivitamin) tablet Take 1 tablet by mouth Once per day. TAKE 1 TABLET BY MOUTH EVERY DAY WITH FOOD 90 tablet 3 Nebulizers (Compressor Nebulizer) [facility] Use as directed with Albuterol, DX: J45.40 pantoprazole (ProtoNix) 40 MG EC tablet take 1 tablet by PO BID predniSONE (Deltasone) 20 MG tablet 2 tabs po daily for 5 days 10 tablet 0 propranolol (Inderal) 10 MG tablet Take 1 tablet (10 mg) by mouth 3 times daily. 90 tablet 11 Riboflavin 400 MG capsule Take 400 mg by mouth Once per day. 90 capsule 3 sucralfate (Carafate) 1 GM/10ML suspension take 10 milliliter by oral route 4 times every day on anempty stomach 1 hour before meals and at bedtime topiramate (Topamax) 25 MG tablet Take 1 tablet (25 mg) by mouth Once per day. 90 tablet 3 traMADol (Ultram) 50 MG tablet Take 1 tablet by mouth Every 4-6 hours as needed. zolpidem (Ambien) 10 MG tablet TAKE 1 TABLET BY MOUTH DAILY AT BEDTIME 28 tablet 0 [DISCONTINUED] acetaminophen (Tylenol) 500 MG tablet take 2 tablet by oral route every 6 hours as needed as needed for pain 30 tablet 0 [DISCONTINUED] budesonide-formoterol (Symbicort) 160-4.5 MCG/ACT inhaler INHALE 2 PUFFS EVERY MORNING AND DAILY AT BEDTIME 10.2 g 1 [DISCONTINUED] meloxicam (Mobic) 7.5 MG tablet TAKE 1 TABLET BY MOUTH EVERY DAY 30 tablet 1 [DISCONTINUED] mirtazapine (Remeron Eliana-Tab) 45 MG disintegrating tablet TAKE 1 TABLET BY MOUTH DAILY AT BEDTIME 30 tablet 0 No current facility-administered medications on file prior to visit. I, Seema Sultana, am serving as a scribe to document services personally performed by Dr. Delmy Morales, based on the patient's response to questions by provider and provider's statements to me. documented in this encounter Miscellaneous Notes * Assessment & Plan Note - Seema Sultana - 10/30/2024 11:00 AM ESTAssociated Problem(s): COVID-19 Pt on 5th day of Covid symptoms, slowly improving, not prescribed with Paxlovid, no indication for other antiviral treatment at this time. Increase Symbicort to que 6 hours prn SOB/cough and hold Albuterol INH and solution. FU with Pulmonology on 11/11/24. Take Tylenol prn headache, body aches, all pains. Re consult prn worsening of symptoms, recurrence of fever. * Assessment & Plan Note - Seema Sultana - 10/30/2024 10:58 AM ESTAssociated Problem(s): Asthma Mild exacerbation due to Covid infection. Increase Symbicort to Que 6 hours prn SOB/cough. FU with [facility]. documented in this encounter Plan of Treatment Not on file documented as of this encounter Visit Diagnoses Diagnosis COVID-19- Primary Asthma, unspecified asthma severity, unspecified whether complicated, unspecified whether persistent documented in this encounter Additional Health Concerns Assessment Noted Time PHQ-9 Depression Total Score: 0 03/19/20 24 8:51 AM EDT documented as of this encounter Care Teams Machine Cementer And Folder Relationship Specialty Start Date End Date Pat Juan FNP [address] [place] [id number] PCP - General Family Medicine 05/04/22 documented as of this encounter
--- OUTSIDE RECORDS SUMMARY | 2024-11-12 09:55 | XMS_ITS | Encounter Summary ---
Author Organization [employer] Address [address] [facility] 7t [place] [address] Care Team Providers Care Plastics Factory Worker Name Role Phone [facility] Primary Care Provider [phone] Encounter Details Date Type Department Care Team (Latest Contact Info) Description 10/30/2024 Travel Social History Tobacco Use Types Packs/Day Years [...] AM EDT documented as of this encounter Plan of Treatment Not on file documented as of this encounter Visit Diagnoses Not on filedocumented in this encounter Additional Health Concerns Assessment Noted Time PHQ-9 Depression Total Score: 0 03/19/20 24 8:51 AM EDT documented as of this encounter Care Teams Plastics Factory Worker Relationship Specialty Start Date End Date Pat Juan FNP [address] [place] [id number] PCP - General Family Medicine 05/04/22 documented as of this encounter
--- OUTSIDE RECORDS SUMMARY | 2024-11-12 09:56 | XMS_ITS | Encounter Summary ---
Author Organization [employer] Address [address] [facility] 7t [place] [address] Care Team Providers Care Insights Analyst Name Role Phone [facility] Primary Care Provider [phone] Reason for Visit * Reason Onset Date Comments Med Refill 10/14/2024 Encounter Details Date Type Department Care Team ([facility] st Contact Info) Description 10/14/2024 Telephone [facility] MEDICINE [address] [place], [place] [phone] [facility] [address] [place], [place] [phone] Med Refill Social History Tobacco Use Types Packs/Day Years [...] AM EDT documented as of this encounter Miscellaneous Notes * Telephone Encounter - Santana Rocha - 10/15/2024 3:08 PM EST Tc from pt requesting status on medication Vitamin B12 * Telephone Encounter - Cynthia Crespo LPN - 10/14/2024 10:43 AM EST RELATIONS DIRECTOR checked on 10/14/24 Ambien sold on 09/29/23 #28 to soon for refill. * Telephone Encounter - Dav Cole - 10/14/2024 10:01 AM EST TC from pt requesting medication refill. Medications needing refill : zolpidem (Ambien) 10 MG tablet cyanocobalamin (Vitamin B-12) 1000 MCG tablet To be sent to: [facility] - [place], [place] - [address] documented in this encounter Plan of Treatment Not on file documented as of this encounter Visit Diagnoses Diagnosis Tingling of both feet documented in this encounter Additional Health Concerns Assessment Noted Time PHQ-9 Depression Total Score: 0 03/19/20 24 8:51 AM EDT documented as of this encounter Care Teams Insights Analyst Relationship Specialty Start Date End Date Pat Juan FNP [address] [place] [id number] PCP - General Family Medicine 05/04/22 documented as of this encounter
--- OUTSIDE RECORDS SUMMARY | 2024-11-12 09:56 | XMS_ITS | Encounter Summary ---
Author Organization [employer] Address [address] [facility] 7t [place] [address] Care Team Providers Care 7Th Grade Social Studies Teacher Name Role Phone [place] SENIOR MANAGER [facility] Primary Care Provider [phone] Encounter Details Date Type Department Care Team ([facility] st Contact Info) Description 04/17/2024 Orders Only [facility] MEDICINE [address] [place], [place] [phone] Lori Werner MD [address] [place], [place] [phone] Social History Tobacco Use Types Packs/Day Years [...] documented as of this encounter Care Teams 7Th Grade Social Studies Teacher Relationship Specialty Start Date End Date Pat Juan FNP [address] [place] [id number] PCP - General Family Medicine 05/04/22 documented as of this encounter
--- OUTSIDE RECORDS SUMMARY | 2024-11-12 09:56 | XMS_ITS | Encounter Summary ---
Author Organization [employer] Address [address] [facility] 7t [place] [address] Care Team Providers Care Grounds/Maintenance Specialist Name Role Phone [facility] [place] [employer]CE[employer]CTOR [employer] Primary Care Provider [phone] Reason for Visit * Reason Comments Med Refill Encounter Details Date Type Department Care Team (Late st Contact Info) Description 10/24/2023 Refill [facility] MEDICINE [address] [place], [place] [phone] Tracee Coulter ANP 230 [place], [place] [phone] Depressive disorder Social History Tobacco Use Types Packs/Day Years Used Date Smoking Tobacco: Never Smokeless Tobacco: Never Alcohol Use Standard Drinks/Week Comments Never 0 (1 standard drink = 0.6 oz pur e alcohol) Depression Answer Date Recorded Patient Health Questionnaire-9 Score 0 07/18/2023 Patient Health Questionnaire-9 Score 0 07/18/2023 Last PHQ-9: Questionnaire Data Not on file 1 Housing Stability Answer Date Recorded What is [...] Date Recorded Patient Health Questionnaire-2 Score 0 07/18/2023 Comments Unknown Sex and Gender Information Value [...] Noted Time PHQ-9 Depression Total Score: 0 07/18/20 23 9:27 AM EDT documented as of this encounter Care Teams Grounds/Maintenance Specialist Relationship Specialty Start Date End Date Pat Juan FNP [address] [place] [id number] PCP - General Family Medicine 05/04/22 documented as of this encounter
--- OUTSIDE RECORDS SUMMARY | 2024-11-12 09:56 | XMS_ITS | Encounter Summary ---
Author Organization [employer] Address [address] [facility] 7t [place] [address] Care Team Providers Care Upward Bound Director Name Role Phone [facility] Primary Care Provider [phone] Reason for Visit * Reason Comments Med Refill Encounter Details Date Type Department Care Team ([facility] st Contact Info) Description 10/27/2024 Refill [facility] MEDICINE 230 [place], [place] [phone] [facility] 230 [place], [place] [phone] Depression, major, in remission (CMS/HCC); Muscle spasm Social History Tobacco Use Types Packs/Day Years [...] as of this encounter Visit Diagnoses Diagnosis Depression, major, in remission (CMS/HCC) Muscle spasm Spasm of muscle documented in this encounter Additional Health Concerns Assessment Noted Time PHQ-9 Depression Total Score: 0 03/19/20 24 8:51 AM EDT documented as of this encounter Care Teams Upward Bound Director Relationship Specialty Start Date End Date Pat Juan FNP [address] [place] [phone] PCP - General Family Medicine 05/04/22 documented as of this encounter
--- OUTSIDE RECORDS SUMMARY | 2024-11-12 09:56 | XMS_ITS | Encounter Summary ---
Author Organization [employer] Address [address] [facility] 7t [place] [address] Care Team Providers Care Nat Instructor Name Role Phone [facility] Primary Care Provider [phone] Reason for Visit * Reason Comments Med Refill Encounter Details Date Type Department Care Team ([facility] st Contact Info) Description 04/14/2024 Refill [facility] MEDICINE 230 [place], [place] [phone] [facility] 230 [place], [place] [phone] Depressive disorder Social History Tobacco Use Types [...] documented as of this encounter Care Teams Nat Instructor Relationship Specialty Start Date End Date Pat Juan FNP 230 [place] [address] PCP - General Family Medicine 05/04/22 documented as of this encounter
--- OUTSIDE RECORDS SUMMARY | 2024-11-12 09:56 | XMS_ITS | Clinical Summary ---
Author Organization [employer] Address [address] [place] [address] Care Team Providers Care Agriculture Manager Name Role Phone Pat Juan [facility] Primary Care Provider [phone] Allergies Active Allergy Reactions Criticality Noted Date Comments Morphine Rash Low 03/24/2011 Other reaction(s): Rash Medications * This document contains information received from the source organization and may not represent a complete record from that organization. ascorbic acid (Vitamin C) 500 mg chewable tablet takes 1 tablet once a day by endo Active glucose blood (PaperlitTouch Ultra) test strip USE 1 STRIP by DIRECTED route every day 021 Active Calcium-Vitamin D-Vitamin K 500-1000-40 MG-UNT-MCG chewable tablet takes 1 tablet twice a day, endo Active Nebulizers (Compressor Nebulizer) misc Use as directed with Albuterol, DX: J45.40 018 Active pantoprazole (ProtoNix) 40 MG EC tablet take 1 tablet by PO BID 022 Active sucralfate (Carafate) 1 GM/10ML suspension take 10 milliliter by oral route 4 times every day on an empty stomach 1 hour before meals and at bedtime 022 Active Blood Glucose Monitoring Suppl (ONE TOUCH ULTRA 2) w/Device kit Test 1 times by intradermal route every day 016 Active Blood Pressure kit Use by on arm route 1-2 times every day 022 Active albuterol (2.5 MG/3ML) 0.083% nebulizer solution INHALE 3ML BY NEBULIZATION ROUTE EVERY 6 HOURS IF NEEDED 90 mL 2 023 Active famotidine (Pepcid) 20 MG tablet Take 1 tablet by mouth at bedtime. 09/19/2 023 Active Linzess 290 MCG capsule Take 1 capsule by mouth in the morning. Active traMADol (Ultram) 50 MG tablet Take 1 tablet by mouth Every 4-6 hours as needed. Active albuterol 108 (90 Base) MCG/ACT inhaler INHALE 2 PUFFS BY MOUTH EVERY 4 HOURS IF NEEDED 8.5 g Active atorvastatin (Lipitor) 40 MG tablet TAKE 1 TABLET BY MOUTH EVERY DAY 30 tablet 11 Active levothyroxine (Synthroid) 75 MCG tablet Take 1 tablet (75 mcg) by mouth before breakfast. 30 tablet 11 2024 Active amLODIPine (Norvasc) 2.5 MG tablet Take 1 tablet (2.5 mg) by mouth Once per day. 90 tablet 3 024 2024 Active citalopram (CeleXA) 20 MG tabletIndication s:Depressive disorder Take 1 tablet (20 mg) by mouth Once per day. 90 tablet 3 2024 Active Multiple Vitamin (Multivitamin) tablet Take 1 tablet by mouth Once per day. TAKE 1 TABLET BY MOUTH EVERY DAY WITH FOOD 90 tablet 3 Active topiramate (Topamax) 25 MG tabletIndication s:Chronic nonintractable headache, unspecified headache type Take 1 tablet (25 mg) by mouth Once per day. 90 tablet 3 024 2024 Active Riboflavin 400 MG capsuleIndicatio ns:Chronic nonintractable headache, unspecified headache type Take 400 mg by mouth Once per day. 90 capsule 3 024 2024 Active lidocaine (Lidoderm) 5 % patchIndications :Muscle spasm APPLY 1 PATCH TOPICALLY EVERY DAY. REMOVE AND DISCARD AFTER 12 HOURS OR DIRECTED BY MD Medrano patch 1 Active LORazepam (Ativan) 0.5 MG tabletIndication s:Anxiety Take 1 tablet (0.5 mg) by mouth See administration instructions for 2 days. Take one tablet 30 minutes - 1 hour before flying on 07/01/24, may repeat dose X1 after 4 hours. 4 tablet Active propranolol (Inderal) 10 MG tabletIndication s:Chronic nonintractable headache, unspecified headache type,Primary hypertension Take 1 tablet (10 mg) by mouth 3 times daily. 90 tablet 11 024 2024 Active montelukast (Singulair) 10 MG tablet TAKE 1 TABLET BY MOUTH EVERY DAY 30 tablet 5 Active predniSONE (Deltasone) 20 MG tabletIndication s:Cough in adult patient 2 tabs po daily for 5 days 10 tablet 025 Active cyanocobalamin (Vitamin B-12) 1000 MCG tabletIndication s:Tingling of both feet TAKE 1 TABLET BY MOUTH EVERY MORNING 30 tablet 5 025 Active cetirizine (ZyrTEC) 10 MG tabletIndication s:Seasonal allergies TAKE 1 TABLET BY MOUTH EVERY DAY NEEDED FOR ALLERGIES 90 tablet 025 Active zolpidem (Ambien) 10 MG tabletIndication s:Depressive disorder TAKE 1 TABLET BY MOUTH DAILY AT BEDTIME 28 tablet 025 Active mirtazapine (Remeron Eliana-Tab) 45 MG disintegrating tabletIndication s:Depression, major, in remission (CMS/HCC) TAKE 1 TABLET BY MOUTH DAILY AT BEDTIME 30 tablet 025 Active meloxicam (Mobic) 7.5 MG tabletIndication s:Muscle spasm TAKE 1 TABLET BY MOUTH EVERY DAY 30 tablet 025 Active acetaminophen (Tylenol) 500 MG tablet Take 1 tablet (500 mg) by mouth every 6 (six) hours if needed for mild pain, headaches or fever. take 2 tablet by oral route every 6 hours as needed as needed for pain 90 tablet 025 2024 Active budesonide-formo terol (Symbicort) 160-4.5 MCG/ACT inhalerIndicatio ns:Asthma, unspecified asthma severity, unspecified whether complicated, unspecified whether persistent INHALE 2 PUFFS EVERY MORNING AND DAILY AT BEDTIME and Q6h prn sob/cough 10.2 g 11 025 Active acetaminophen (Tylenol) 500 MG tablet take 2 tablet by oral route every 6 hours as needed as needed for pain 30 tablet 024 2024 Discontinued(R eorder (will not trigger notification to Pharmacy)) cyanocobalamin (Vitamin B-12) 1000 MCG tabletIndication s:Tingling of both feet TAKE 1 TABLET BY MOUTH EVERY MORNING 30 tablet 5 024 2024 Discontinued(R eorder (will not trigger notification to Pharmacy)) cetirizine (ZyrTEC) 10 MG tabletIndication s:Seasonal allergies Take 1 tablet (10 mg) by mouth if needed each day for allergies. 90 tablet 1 024 2024 Discontinued meloxicam (Mobic) 7.5 MG tabletIndication s:Muscle spasm TAKE 1 TABLET BY MOUTH EVERY DAY 30 tablet 1 024 2024 Discontinued budesonide-formo terol (Symbicort) 160-4.5 MCG/ACT inhalerIndicatio ns:Asthma, unspecified asthma severity, unspecified whether complicated, unspecified whether persistent INHALE 2 PUFFS EVERY MORNING AND DAILY AT BEDTIME 10.2 g 1 024 2024 Discontinued(R eorder (will not trigger notification to Pharmacy)) zolpidem (Ambien) 10 MG tabletIndication s:Depressive disorder TAKE 1 TABLET BY MOUTH DAILY AT BEDTIME 28 tablet 024 2024 Discontinued(R eorder (will not trigger notification to Pharmacy)) mirtazapine (Remeron Eliana-Tab) 45 MG disintegrating tabletIndication s:Depression, major, in remission (CMS/HCC) TAKE 1 TABLET BY MOUTH DAILY AT BEDTIME 30 tablet 025 2024 Discontinued amoxicillin-clav ulanate (Augmentin) 875-125 MG tabletIndication s:Cough in adult patient Take 1 tablet by mouth 2 times daily for 10 days. 20 tablet 025 2024 Active Problems Problem Noted Date Diagnosed Date COVID-19 10/30/2024 Assessment & Plan (10/30/2024 11:00 AM EST): Pt on 5th day of Covid symptoms, slowly improving, not prescribed with Paxlovid, no indication for other antiviral treatment at this time. Increase Symbicort to que 6 hours prn SOB/cough and hold Albuterol INH and solution. FU with Pulmonology on 11/11/24. Take Tylenol prn headache, body aches, all pains. Re consult prn worsening of symptoms, recurrence of fever. Cough in adult patient 10/07/2024 Overview (10/07/2024): Acute asthma exacerbation. Treated with steroids. - Prescribed albuterol (2.5 MG/3ML) 0.083% nebulizer solution 2.5 mg (Completed) 10/07/2024 - Prescribed predniSONE (Deltasone) 20 MG tablet 10/07/24 - Prescribed amoxicillin-clavulanate (Augmentin) 875-125 MG tablet 10/07/24 - ER precautions discussed 10/07/24 - Seek medical attention for worsening symptoms 10/07/24 Assessment & Plan (10/07/2024 10:51 AM EST): Acute asthma exacerbation. Treated with steroids. - Prescribed albuterol (2.5 MG/3ML) 0.083% nebulizer solution 2.5 mg (Completed) 10/07/2024 - Prescribed predniSONE (Deltasone) 20 MG tablet 10/07/24 - Prescribed amoxicillin-clavulanate (Augmentin) 875-125 MG tablet 10/07/24 - ER precautions discussed 10/07/24 - Seek medical attention for worsening symptoms 10/07/24 Chronic nonintractable headache 08/18/2024 Assessment & Plan (08/18/2024 11:42 AM EST): Neuro exam wnl, no red flag MERCEDES signs Pt will continue on fioricet daily q4hrs prn Will start patient on propranolol 10 mg TID to prevent MERCEDES Educated pt on anticipated SE including low BP and slow pulse. Pt will check BP and pulse before taking medication. If pulse is<60, pt will hold medication. Influenza-like symptoms 04/14/2024 Assessment & Plan (04/14/2024 10:20 AM EDT): -symptoms suggestive of URI with slight asthma exacerbation -Rapid COVID-19, Influenza and Strep all negative today -advised increase fluid intake and rest -Sore throat: salt water gargles, drink tea with honey & lemon, suck lozenge -start 5 day course of prednisone today given persistent wheeze despite inhaler use. May discontinue after 3 days if symptoms subside -advised close glucose monitoring due to prednisone -come to walk-in center if develop fever or symptoms worsen Meningioma 03/18/2024 Mild anxiety 01/04/2024 Chronic idiopathic constipation 05/05/2023 Overview (05/05/2023): ?? Followed by [facility] ?? Linzess Numbness and tingling in left hand 05/05/2023 Overview (05/05/2023): 11/02/22-negative EMG for left hand Healthcare maintenance 10/24/2022 Overview (05/05/2023): Mammo: 07/2022 Bi-rads 1 Pap: 08/2022, NIL, HPV neg, discontinued C-scope: 2021, negative. Repeat 2031 or discontinue BMD: 04/2021 osteoporosis, repeat 04/2023 per endo s/p parathyroidectomy Cobalamin deficiency 09/02/2015 Primary hypertension 09/02/2015 Overview (10/10/2024): Well controlled with amlodipine 2.5mg daily Previously rx'd lisinopril d/c d/t hyperkalemia 2017. 07/11/23-completed echocardiogram for evaluation of palpitations. EF 66%. Negative valvular pathology. Pt seen by cardiology 06/10/24. EKG was completed and showed NSR, no significant ST-T changes and was overall unremarkeable. Stress test was ordered and completed 08/12/24. NM/NM cardiolite stress test IMPRESSION: 1. Myocardial perfusion imaging study shows probably normal myocardial perfusion. 2. Gated LVEF is 67% during stress and 71% during rest. 3. Transient ischemic dilatation not present. Assessment & Plan (08/18/2024 11:45 AM EST): BP above goal >140/90 Patient will check BP twice daily and keep log Pt will take propranolol TID to target MERCEDES and lower BP Will f/u via telehealth to review BP log and assess medication tolerance Educated pt on anticipated SE including low BP and slow pulse. Pt will check BP and pulse before taking medication. If pulse is<60, pt will hold medication. Assessment & Plan (04/14/2024 10:20 AM EDT): -initial clinic BP reading elevated. Repeat reading within acceptable range -advised home monitoring Assessment & Plan (11/26/2023 10:16 AM EST): Well controlled Continue current regimen Assessment & Plan (08/01/2023 9:11 PM EST): Continue current regimen Reviewed ED precautions to include chest pain, shortness of breath, severe headache, sudden vision changes or BP >=180/>=120 mmHg. Contact HC if three or more BP readings >140/90. Assessment & Plan (06/18/2023 1:43 PM EDT): ?? Etiology unclear for recent labile HTN ?? DECREASE amlodipine to 2.5mg once daily ?? RN BP check 1 week ?? Reviewed ED precautions to include chest pain, shortness of breath, severe headache, sudden vision changes or BP >=180/>=120 mmHg. Contact HC if three or more BP readings >140/90. Assessment & Plan (05/05/2023 1:15 PM EDT): ?? Well controlled ?? Continue current regimen Type 2 diabetes mellitus 09/02/2015 Overview (11/26/2023): Well controlled with diet alone A1c 5.3 03/2022 Maintenance Foot Exam: Negative 10/2023 Eye Exam: Discuss at follow up ASCVD: Calculate pending updated labs Statin: Yes ASA: No ELHAM/ARB: No Encouraged regular aerobic exercise for improved glycemic control Encouraged daily foot checks Encouraged lean protein snacks and to avoid foods high in sugar and simple carbohydrates Treatment Goals: A1c goal: <7% FBG goal: <130 2 hour post prandial goal: <180 Assessment & Plan (08/18/2024 11:47 AM EST): A1c at goal <7% Glucose 101 today Assessment & Plan (11/26/2023 10:19 AM EST): Lab Results Component Value Date HGBA1C 5.3 06/08/2023 Foot exam negative in office Continue current plan Assessment & Plan (06/18/2023 1:45 PM EDT): Lab Results Component Value Date HGBA1C 5.3 06/08/2023 ?? Well controlled with diet alone Assessment & Plan (05/05/2023 1:18 PM EDT): Lab Results Component Value Date HGBA1C 5.5 01/31/2023 ?? Well controlled ?? Continue current regimen Assessment & Plan (10/24/2022 11:48 PM EST): ?? Well controlled ?? Continue current mgnmt plan ?? Will repeat routine labs at follow up Gastroesophageal reflux disease 06/02/2013 Overview (10/10/2024): Followed by [facility] Negative EGD 2021 Pantoprazole Pt seen by GI 06/13/24 for GERD workup. Plan to continue on protonix in the morning and famotidine at bedtime. Next f/u to be scheduled 6 months from then. Osteoporosis 05/21/2013 Overview (12/17/2023): Hx of osteoporosis s/t hyperparathyrodism dx 2018. S/p 3.5 gland parathyroidectomy 02/15/2021 with PTH indicating cure. Secondary workup was negative. Repeat DXA 04/2023 with significant decline in her spine as well as her hip. Failed tx with oral bisphosphonate, Prolia and more recently Reclast in the past. She has had fragility fractures of right wrist and clavicle in the past. Assessment & Plan (11/26/2023 10:18 AM EST): Follow up as scheduled with Dr. Molina Continue vitamin D/calcium supplementation Continue daily weight bearing activity Assessment & Plan (06/18/2023 1:45 PM EDT): ?? Start reclast therapy as planned with endocrinology Assessment & Plan (05/05/2023 1:06 PM EDT): ?? Follow up as scheduled with endocrinology for repeat DEXA ?? Continue vitamin D and calcium supplementation ?? Continue weight bearing exercises Depression, unspecified 03/06/2013 Overview (12/17/2023): Mirtazipine 45 mg Citalopram 20mg Ambien 10mg Assessment & Plan (01/04/2024 8:48 AM EDT): PROGRESS NOTE: ID: Hedy is a 73 y.o. White straight-identified cis-female with previous documented hx of Depression services including OP Psychotherapy psychopharmacology who presents for Depression and Anxiety. Lives with , daughter and son in law and grand babies. During IBH Consult Hedy presenting with loss of interests/pleasure , changes in sleep difficulty falling asleep and difficulty staying asleep , change in appetite or weight overeating, psychomotor agitation, fatigue/loss of energy and excessive worry/anxiety, difficulty controlling worry, restless/keyed up/On edge, easily fatigued, muscle tension, and sleep disturbance difficulty falling asleep and difficulty staying asleep ; for a period of 6-12 mo, for all symptoms in the context of concern about health issues. PLAN: New/Additional Services needed Off-site services for Behavioral Health Integration Plan External OP therapy referral and OP psychiatry Referral Patient Self Plan Patient to utilize skills provided in intervention , Patient to reach out to [facility] team as needed, and Patient to engage in OP therapy Comply with medication prescribed by PCP ( mirtazapine 45mg, citralopram, 20mg, ambien 10mg) Assessment & Plan (11/26/2023 10:16 AM EST): PHQ-9 and GDS negative however reports of decreased appetite, fatigue, and appearing more withdrawn raise concerns for worsening depression Will submit maven E consult re medication adjustment to promote sleep and follow up pending results Referral back to -previously working with Malissa, lost to follow up Denies SI or thoughts of self harm Assessment & Plan (08/01/2023 9:09 PM EST): ?? Shared decision making re restarting ambien given increased risk with age. Pt prefers to continue d/t lack of benefit with other medications. ?? Restart ambien 10mg at bedtime. Close monitoring for side effects/sleep walking ?? Continue citalopram 20mg ?? Declines therapy ?? Will continue to monitor sx Assessment & Plan (06/18/2023 1:47 PM EDT): ?? INCREASE citalopram 10mg to 20mg once daily ?? Will refill mirtazipine and ambien today however discussed with patient increased risk of sedating medications with age. Will trial increased citalopram and referral for therapy to improve anxiety overall and trial ambien taper at follow up if sx have improved. Patient verbalizes understanding and agrees to plan Assessment & Plan (10/24/2022 11:52 PM EST): ?? Well controlled. Denies SI or thoughts of self harm ?? Continue current regimen ?? Refills provided Dyslipidemia 03/06/2013 Hypothyroidism 03/06/2013 Overview (10/24/2022): ?? Stable on levothyroxine 50mcg Assessment & Plan (11/26/2023 10:17 AM EST): - Repeat TSH - follow up as scheduled with Dr. Molina Assessment & Plan (06/18/2023 1:44 PM EDT): ?? Will check TSH ?? Follow up as scheduled with endocrinology Asthma 02/25/2013 Overview (12/17/2023): Cetrizine and montelukast PRN Symbicort b.i.d Spiriva--->did not tolerate. Self discontinuned Overnight home oxygen 2L PRN albuterol Followed by pulmonology [facility] Assessment & Plan (10/30/2024 10:58 AM EST): Mild exacerbation due to Covid infection. Increase Symbicort to Que 6 hours prn SOB/cough. FU with Medical Microbiologist. Assessment & Plan (08/18/2024 11:43 AM EST): Lung sounds were normal today Pt will continue with Symbicort as prescribed and will take albuterol prn Will defer medication management to pulmonology. Considered addition of secondary maintenance inhaler that may be better tolerated than incruse. Plans to follow up with pulm in August. Assessment & Plan (11/26/2023 10:14 AM EST): Well controlled Continue current regimen Resolved Problems Problem Noted Date Diagnosed Date Resolved Date URI due to influenza 12/07/2023 024 Assessment & Plan (12/07/2023 6:24 AM EDT): Pt w upper respiratory symptoms, mild asthma exacerbation from viral infection w scant wheezing on exam , normal O sat Flu positive today Chem 06/2023 Cr 1.06, crcl 35--I calculated cr cl 45, GFR 51 -pt within window and with risk factors for complications ---Px tamiflu 30 mg BID for crcl -mucinex -tylenol -hydration -mask use ,hand hygiene -alarm signs and symptoms -hold steroids for now but alarm signs symptoms discussed in case needs to return if despite starting tamiflu asthma is not improving , continue her regular inh at home -has apt w PCP scheduled already for 12/17/2023 No psychiatric disorder foun d after evaluation 07/19/2023 03/19/2024 Encounter for counseling 07/19/2023 Assessment & Plan (07/19/2023 9:20 AM EDT): In the past 2 weeks Hedy reports feeling happy, and denies depressed mood, and/or anxiety. On GAD7, she scored a 1, which is minimal anxiety, and does not meet criteria for generalized anxiety. However, Hedy agrees to follow up in 2 weeks, to assure she is doing well, and provide support in the upcoming months. I informed Hedy, she can reach out to me if needed prior to the 2 weeks for support. At this time Hedy Davis meets criteria for Visit Diagnoses: Problem List Items Addressed This Visit Other Depressive disorder No psychiatric disorder found after evaluation Encounter for counseling Patient ready to address current needs Yes Strengths include willingness to engage, coping skill in place, and support system PLAN: 1. Follow up with [facility]: Recommended for follow-up: 07/31 @ 10am 2. Patient goal is to continue controlling symptoms. 3. Behavioral Recommendations a. F/u in 2 weeks. b. Continue use of coping skills Hyperkalemia 02/20/2018 10/24/2022 Encounters Date Type Department Care Team Description 10/30/2024 10:15 AM EST Telemedicine [facility] [address] [place] [address] Delmy Morales MD COVID-19 (Primary Dx); Asthma, unspecified asthma severity, unspecified whether complicated, unspecified whether persistent 10/30/2024 Travel 10/29/2024 Telephone [facility] [address] [place] [address] Pat Juan FNP Nurse Triage 10/27/2024 Refill [facility] [address] [place] [address] Pat Juan FNP Depression, major, in remission (CMS/[facility]); Muscle spasm 10/27/2024 Orders Only [facility] External Provider, [facility] 10/21/2024 Refill [facility] [address] [place] [address] Pat Juan FNP Depressive disorder 10/20/2024 Refill [facility] [address] [place] [address] Lori Werner MD Seasonal allergies 10/15/2024 Refill [facility] [address] [place] [address] Pat Juan FNP Depressive disorder 10/14/2024 Telephone [facility] [address] [place] [address] Pat Juan FNP Med Refill 10/10/2024 9:00 AM EST Telemedicine [facility] [address] [place] [address] Pat Juan FNP Chronic nonintractable headache, unspecified headache type (Primary Dx); Cough in adult patient 10/10/2024 Travel 10/08/2024 Telephone [facility] [address] [place] [address] Pat Juan FNP chart prep 10/07/2024 10:00 AM EST Office Visit [facility] [place] [address] Olivia Ramirez MD Cough in adult patient 10/07/2024 Telephone [facility] [address] [place] [address] Pat Juan FNP Med Refill 10/07/2024 Travel 09/29/2024 Refill [facility] [place] [address] Pat Juan FNP Depression, major, in remission (CMS/HCC) 09/16/2024 Refill [facility] [place] [address] Pat Juan FNP Depressive disorder 09/15/2024 Orders Only [facility] [place] [address] Pat Juan FNP 09/10/2024 Refill [facility] [place] [address] Pat Juan FNP Asthma, unspecified asthma severity, unspecified whether complicated, unspecified whether persistent 09/03/2024 Orders Only [facility] [address] [place] [address] Pat Juan FNP 09/03/2024 Refill [facility] [place] [address] Pat Juan FNP Depression, major, in remission (CMS/HCC) 09/01/2024 Telephone [facility] [place] [address] Pat Juan FNP ER Follow-up 08/29/2024 Orders Only GENERIC EXTERNAL DATA DEPARTMENT Provider, Generic External Data 08/28/2024 Refill [facility] [address] [place] [address] Pat Juan FNP Muscle spasm 08/25/2024 Refill [facility] [address] [place] [address] Pat Juan FNP Depressive disorder 08/18/2024 10:30 AM EST Office Visit [facility] [address] [place] [address] Pat Juan FNP Chronic nonintractable headache, unspecified headache type (Primary Dx); Type 2 diabetes mellitus without complication, without long-term current use of insulin ([facility]); Primary hypertension; Encounter for immunization; Moderate persistent asthma without complication 08/18/2024 Travel 08/14/2024 Refill [facility] [address] [place] [address] Pat Juan FNP Asthma, unspecified asthma severity, unspecified whether complicated, unspecified whether persistent 08/12/2024 Orders Only [facility] External Provider, [facility] from Last 3 Months Immunizations Name Administration Dates Next Due Influenza High-dose Quadrivalent Preservative Fr ee 06/08/2023,06/22/2022 Influenza injectable quadriv alent IIV4 with preservative 08/07/2017 Influenza injectable quadrivalent preservative f ree 06/17/2015,11/23/2014 Influenza, High Dose Seasonal, Preservative Free 08/18/2024,08/13/2019 Influenza, IIV3, injectable 08/23/2018 Influenza, Split (incl. purified surface antigen ) 06/02/2013 Influenza, Unspecified 09/02/2009 Moderna Covid-19 Vaccine 12+ 01/12/2021,12/16/19 21 Pneumococcal Conjugate PCV 13 08/07/2017 Pneumococcal Polysaccharide PPSV23 09/02/2015, TD (adult), 2 Lf tetanus tox oid, preservative free, adsorbed 04/14/2022 Tdap 07/04/2011 Zoster, Recombinant 07/24/2022,04/28/2022 Zoster, live 11/23/2014 Social History Tobacco Use Types Packs/Day Years Used Date Smoking Tobacco: Never Smokeless Tobacco: Never Tobacco Cessation:Counseling Given: Not Answered Alcohol Use Standard Drinks/Week Comments Never 0 [...] Orientation Straight 07/24/2022 10 :16 AM EDT Last Filed Vital Signs Vital Sign Reading Time Taken Comments Blood Pressure 150/90 10/07/2024 10:03 AM EST Pulse 74 10/07/2024 10:03 AM EST Temperature 36.8 ??C (98.3 ??F) 10/07/2024 10:[address] Respiratory Rate 18 10/07/2024 10:03 AM EST Oxygen Saturation 96% 10/07/2024 10:03 AM EST Inhaled Oxygen Concentration - - Weight 67.6 kg (149 lb) 10/07/2024 10:03 AM EST Height 149.9 cm (4' 11 ) 08/18/2024 10:22 AM EST Body Mass Index 30.09 08/18/2024 10:22 AM EST Plan of Treatment Health Maintenance Due Date Last Done Comments Eye Exam 09/24/2023 09/24/2021 RSV Patients and Patients Aged 60 years or older (1 - 1-dose 75+ series) 2023 COVID-19 Vaccine (3 - 2023- season) 2024 01/12/2021, 12/15/2020 Diabetes: Hemoglobin A1C 11/18/2024 024, 12/17/2023, 06/08/2023, Additional history exists SDOH Screening 12/16/2024 12/17/2023 Alcohol/Substance Use Screening 03/19/2025 03/19/2024 Depression Screening 03/19/2025 03/19/2024, 03/19/20 Diabetes: Foot Exam 03/19/2025 03/19/2024, 03/19/2024, 03/19/2024, Additional history exists Diabetes: Urine Protein Screening 09/15/2025 09/15/2024, 05/22/2022 Lipid Panel 09/15/2025 09/15/2024, 05/, 05/22/2022 Tobacco Screening 10/10/2025 10/10/2024 DTaP/Tdap/Td Vaccines (3 - Td or Tdap) 04/14/2032 04/14/2022, 04/14/2022, 07/04/2011 Pneumococcal Vaccine: 50+ Years Completed 08/07/2017, 09/02/2015, 09/26/2007 Zoster Vaccines Completed 07/24/2022, 08/0 01/2022, 11/23/2014 Colonoscopy Discontinued 08/24/2022 Colorectal Cancer Screening Discontinued Hepatitis C Screening Completed 01/31/2023 Influenza Vaccine Completed 08/18/2024, , 06/08/2023, Additional history exists CT Colonography Discontinued FIT DNA/Cologuard Discontinued FIT Discontinued FOBT Discontinued HIB Vaccines Aged Out No longer eligi ble based on patient's age to complete this topic HPV Vaccines Aged Out No longer eligi ble based on patient's age to complete this topic Hepatitis A Vaccines Aged Out No long er eligible based on patient's age to complete this topic Hepatitis B Vaccines Aged Out No long er eligible based on patient's age to complete this topic IPV Vaccines Aged Out No longer eligi ble based on patient's age to complete this topic Meningococcal Vaccine Aged Out No delphine pramod eligible based on patient's age to complete this topic RSV under 20 months Aged Out No longe r eligible based on patient's age to complete this topic Rotavirus Vaccines Aged Out No longer eligible based on patient's age to complete this topic Sigmoidoscopy Discontinued Procedures Procedure Name Priority Date/Time Associated Diagnosis Comments HIGH SENSITIVITY TROPONIN I Routine 10/27/2024 3:38 PM EST B TYPE NATRIURETIC PEPTIDE (BNP) Routine 10/27/2024 3:38 PM EST MAGNESIUM Routine 10/27/2024 3:38 PM EST BASIC METABOLIC PANEL Routine 10/27/2024 3:38 PM EST HEPATIC FUNCTION PANEL Routine 3:38 PM EST CBC WITH AUTO DIFFERENTIAL Routine 10/27/2024 3:38 PM EST SARS COV2/INFLUENZA A/B AND RSV RNA QL NAAT Routine 10/27/2024 3:38 PM EST STREP A NUCLEIC ACID Routine 10/27/2024 3:38 PM EST XR CHEST 2 VIEWS Routine 10/27/2024 1:38 PM EST POCT INFLUENZA B (ID NOW RAPID MOLECULAR) Routine 10/07/2024 10:26 AM EST Cough in adult patient POCT INFLUENZA A (ID NOW RAPID MOLECULAR) Routine 10/07/2024 10:26 AM EST Cough in adult patient POCT RAPID COVID ANTIGEN Routine 10/07/2024 10:11 AM EST Cough in adult patient ALBUMIN, RANDOM URINE W/CREATININE Routine 09/15/2024 9:23 AM EST Type 2 diabetes mellitus without complication, without long-term current use of insulin (CMS/HCC) TSH Routine 09/15/2024 9:18 AM EST T4, FREE Routine 09/15/2024 9:18 AM EST LIPID PANEL, STANDARD Routine 09/15/2024 9:18 AM EST Type 2 diabetes mellitus without complication, without long-term current use of insulin (CMS/HCC) TSH W/REFLEX TO FT4 Routine 09/15/2024 1 2:00 AM EST BI MAMMOGRAM SCREENING TOMOSYNTHESIS BILATERAL Routine 09/03/2024 1:15 PM EST XR CHEST 1 VIEW Routine 08/29/2024 2:32 PM EST SARS COV2/INFLUENZA A/B AND RSV RNA QL NAAT Routine 08/29/2024 2:07 PM EST POCT GLYCATED HEMOGLOBIN, TOTAL Routine 08/18/2024 10:24 AM EST Type 2 diabetes mellitus without complication, without long-term current use of insulin (CMS/HCC) POCT GLUCOSE Routine 08/18/2024 10:24 AM EST Type 2 diabetes mellitus without complication, without long-term current use of insulin (CMS/HCC) STRESS TEST WITH MYOCARDIAL PERFUSION Routine 08/12/2024 8:02 AM EST HEPATITIS C AB W/REFL TO HCV RNA, QN, PCR Routine 01/31/2023 4:01 PM EDT Healthcare maintenance HM COLONOSCOPY Routine 08/24/2022 from Last 3 Months or Most Recently Relevant to Health Maintenance Results * Strep A Nucleic Acid (10/27/2024 3:38 PM EST) IDNOW SERIAL# [id number] [facility] Strep A Nucleic Acid Negative Negative [facility] Comment:All test results mus t be correlated with clinical findings.This test has not been evaluated for monitoring treatment ofinfection.Additional follow-up testing using the culture method isrequired if the result is negative and clinical symptomspersist, or in the event of an acute rheumatic feveroutbreak. 10/27/2024 3:38 PM EST 10/27/2024 3:45 PM EST Generic External Data Provider LAB MICROBIOLOGY - GENERAL ORDERABLES Final Result Performing Organization Address [facility] Co de Phone Number [facility] [address] [place] [phone] * High Sensitivity Troponin I (10/27/2024 3:38 PM EST) Pathologist [facility] TROPONIN I HIGH SENSITIVITY 2.9 <3.5 - 17.0 ng/L [facility] Comment:The [employer] high sens itivity Troponin-I results should beused in conjunction with other diagnostic information suchas ECG, clinical observations and information, and patientsymptoms to aid in the diagnosis of [place]. 10/27/2024 3:38 PM EST 10/27/2024 3:45 PM EST [employer] External Data Provider LAB BLOOD ORDERAB LES Final Result Performing Organization Address [facility] de Phone Number [facility] [address] [place] [phone] * (ABNORMAL) SARS-CoV-2 RNA, Influenza A/B, and RSV RNA, Ql NAAT (10/27/2024 3:38 PM EST) Only the most recent of2 resultswithin the time period is included. Pathologist [facility] Influenza A PCR NEGATIVE Negative [facility] Influenza B PCR NEGATIVE Negative [facility] Resp Syncy Virus RNA Qual PCR NEGATIVE Negative [facility] SARS COV2 PCR POSITIVE(A) Negative [facility] Comment:All test results mus t be correlated with clinical findings.Negative results do not preclude SARS-CoV2, influenza Avirus, influenza B virus and/or RSV infectionand should not be used as the sole basis for treatment orother patient management decisions. Negative results must becombined with clinical observations, patient history, andepidemiological information.This test has not been evaluated for monitoring treatment ofinfection.This test has been authorized by the FDA under an EmergencyUse Authorization (EUA) for use by authorized laboratories.Testing performed on the imageloop GeneXpert utilizingreal-time RT-PCR.All SARS CoV2 and positive influenza A/B results arereported to [facility]. 10/27/2024 3:38 PM EST 10/27/2024 3:45 PM EST us Generic External Data Provider LAB MICROBIOLOGY - GENERAL ORDERABLES Final Result [facility] [address] [place] [phone] * (ABNORMAL) CBC auto differential (10/27/2024 3:38 PM EST) White Blood Count 5.4 4.8 - 10.8 X10*3/uL [facility] Red Blood Count 4.12(L) 4.20 - 5.50 X10*6/uL [facility] Hemoglobin 12.6 12.0 - 16.0 g/dl [facility] Hematocrit 39.0 37.0 - 47.0 % [facility] Mean Corpuscular Volume 94.7 80.0 - 98.0 fL [facility] Mean Corpuscular Hemoglobin 30.6 27.0 - 33.0 pg [facility] Mean Corpuscular HGB Conc 32.3 31.0 - 35.0 g/dl [facility] Red Cell Distribution Width 15.9 11.0 - 16.0 % [facility] Platelet Count 178 160 - 400 X10*3/uL [facility] Mean Platelet Volume 10.1 9.4 - 12.3 fL [facility] Neutrophils Percent Auto 58.8 45 - 73 % [facility] Imm Gran Pct Auto 0.2 0.0 - 0.4 % [facility] Lymphocytes Percent Auto 26.6 20 - 40 % [facility] Monocytes Percent Auto 13.5(H) 2 - 11 % [facility] Eosinophils Percent Auto 0.7 0 - 4 % [facility] Basophils Percent Auto 0.2 0 - 2 % [facility] NRBC Pct Auto 0.0 0.0 - 0.2 /100WBC [facility] Neutrophils Absolute Auto 3.2 2.0 - 8.3 x10*3/uL [facility] Imm Gran Abs Auto 0.01 0.00 - 0.03 X10*3/uL [facility] Lymphocytes Absolute Auto 1.4 1.2 - 4.9 X10*3/uL [facility] Monocytes Absolute Auto 0.7 0.1 - 1.2 X10*3/uL [facility] Eosinophils Absolute Auto 0.0 0.0 - 0.4 X10*3/uL [facility] Basophils Absolute Auto 0.0 0.0 - 0.2 X10*3/uL [facility] NRBC Abs Auto 0.000 0.0 - 0.012 X10*3/uL [facility] 10/27/2024 3:38 PM EST 10/27/2024 3:45 PM EST us Generic External Data Provider LAB BLOOD ORDERAB LES Final Result [facility] [address] [place] [phone] * B Type Natriuretic Peptide (BNP) (10/27/2024 3:38 PM EST) B Type Natriuretic Peptide 15 <100 pg/mL [facility] Comment:For those patients w ho are being treated with Natrecor(nesiritide, recombinant BNP), BNP testing should beperformed at least two hours post treatment in order toensure that only endogenous levels of BNP are detected. 10/27/2024 3:38 PM EST 10/27/2024 3:45 PM EST us Generic External Data Provider LAB BLOOD ORDERAB LES Final Result Performing Organization Address [facility] Co de Phone Number [facility] [address] [place] [phone] * Magnesium (10/27/2024 3:38 PM EST) Magnesium 1.9 1.6 - 2.6 mg/dL [facility] 10/27/2024 3:38 PM EST 10/27/2024 3:45 PM EST us Generic External Data Provider LAB BLOOD ORDERAB LES Final Result Performing Organization Address [facility] Phone Number [facility] [address] [place] [phone] * (ABNORMAL) Hepatic Function Panel (10/27/2024 3:38 PM EST) Bilirubin, Total 0.5 0.0 - 1.0 mg/dL [facility] Bilirubin, Direct 0.2 0.0 - 0.5 mg/dL [facility] Aspartate Amino Transferase 49(H) 5 - 31 U/L [facility] Alanine Aminotransferase 41(H) 0 - 31 U/L [facility] Total Protein 7.5 6.5 - 8.0 g/dL [facility] Albumin Level 3.9 3.5 - 5.0 g/dL [facility] Alkaline Phosphatase 73 39 - 117 U/L [facility] 10/27/2024 3:38 PM EST 10/27/2024 3:45 PM EST Generic External Data Provider LAB BLOOD ORDERAB LES Final Result Performing Organization Address [facility] Co de Phone Number [facility] [address] [place] [phone] * (ABNORMAL) Basic Metabolic Panel (10/27/2024 3:38 PM EST) Sodium 141 135 - 145 mmol/L [facility] Potassium 4.2 3.3 - 5.1 mmol/L [facility] Chloride 104 96 - 108 mmol/L [facility] Carbon Dioxide 25 22 - 29 mmol/L [facility] Anion Gap 16 12 - 20 [facility] Urea Nitrogen (BUN) 28(H) 9 - 16 mg/dL [facility] Creatinine, Serum 1.01 0.5 - 1.4 mg/dL [facility] Creatinine Clr Calc Pharmacy 41.9 [facility] Comment:Provided height and weight: 157.48 cm,65 kg.eGFR (calculated from the MDRD study equation) and eCrCl(calculated from the Cockcroft-Gault equation) are based ondifferent parameters and may not yield comparable results.If eCrCl result is absurd, please check patient'sheight/weight. Estimated Glomerular Filt Rate 53 [facility] Comment:Chronic Kidney Disea se: Estimated GFR < 60 mL/min/1.65s2Tbkiuv Kidney Disease: Estimated GFR < 15 mL/min/1.73m2 Glucose 83 60 - 115 mg/dL [facility] Calcium 8.3(L) 8.4 - 10.2 mg/dL [facility] 10/27/2024 3:38 PM EST 10/27/2024 3:45 PM EST us Generic External Data Provider LAB BLOOD ORDERAB LES Final Result [facility] [address] [place] [phone] * XR Chest 2 Views (10/27/2024 1:38 PM EST) Anatomical Region Laterality Modality Chest Radiographic Nohemi ging 10/27/2024 1:38 PM EST Narrative 10/27/2024 2:21 PM EST ? [facility] ?[address] ?[place] [address] ?XRay Report ? Signed ? Patient: Davis,Hedy ?MR#: [id number] ?? 87 ? : 1950 ?Acct:[id number] ? Age/Sex: 74 / F ?ADM Date: 10/27/24 ? Loc: HO.ED ? Attending Dr: ? Ordering Physician: Vikki Christian ?? Date of Service: 10/27/24 ?? Procedure(s): XR chest 2V ?? Accession Number(s): [id number] ? cc: Vikki Christian; Pat Juan ? EXAMINATION: ??XR CHEST 2 VIEWS ? HISTORY: cough, sob, cp ? COMPARISON: Comparison is made with the prior examination dated ?? 08/29/2024. ? FINDINGS: ??PA and lateral views of the chest are submitted. Again seen ?? is elevation of the right hemidiaphragm. The lungs are clear. ??There is ?? no pleural effusion, pneumothorax, or pulmonary vascular congestion. ? The heart is normal in size. ??Again seen is scoliosis of the spine. ? XR/XR chest 2V ?? IMPRESSION: ?? No acute cardiopulmonary abnormality. ? Electronically signed by: ??Pedro Luis Bill MD ??10/27/2024 02:18 PM EST ? Dictated By: ?Pedro Luis Bill MD ? Signed By: ?<Electronically signed by Pedro Luis Bill MD in OV> ?10/27/24 1418 ? DD/ 1338 ? TD/TT: 10/27/24 1413 ? Tree Trimmer Helper: ? Procedure Note Isidoro Fernandez - 10/27/[address] [address] XRay Report Signed Patient: Martín Davis#: [id number] [birth year] : 9Acct:[id number] Age/Sex: 74 / FADM Date: 10/27/24 Loc: HO.ED Attending Dr: Ordering Physician: Vikki Christian Date of Service: 10/27/24 Procedure(s): XR chest 2V Accession Number(s): [id number] cc: Vikki Christian; Pat Juan PROFESSOR OF KINESIOLOGY EXAMINATION: XR CHEST 2 VIEWS HISTORY: cough, sob, cp COMPARISON: Comparison is made with the prior examination dated 08/29/2024. FINDINGS: PA and lateral views of the chest are submitted. Again seen is elevation of the right hemidiaphragm. The lungs are clear. There is no pleural effusion, pneumothorax, or pulmonary vascular congestion. The heart is normal in size. Again seen is scoliosis of the spine. XR/XR chest 2V IMPRESSION: No acute cardiopulmonary abnormality. Electronically signed by: Pedro Luis Bill MD 10/27/2024 02:18 PM EST RP Dictated By: Pedro Luis Bill MD Signed By: <Electronically signed by Pedro Luis Bill MD in OV> 10/27/24 1418 DD/ 1338 TD/TT: 10/27/24 1413 Tree Trimmer Helper: [facility] External Provider IMG XR PROCEDURES Final Result * Influenza B (ID NOW Rapid Molecular) (10/07/2024 10:26 AM EST) Influenza B Negative Negative, Indeterminate [facility] Swab 10/07/2024 10:2 6 AM EST Olivia Ramirez MD POINT OF CARE TEST ENTER/E DIT ORDERABLES Final Result Performing Organization Address [facility] Co de Phone Number [facility] [address] [place] [phone] * Influenza A (ID NOW Rapid Molecular) (10/07/2024 10:26 AM EST) Influenza A Negative Negative, Indeterminate [facility] Swab 10/07/2024 10:2 6 AM EST Olivia Ramirez MD POINT OF CARE TEST ENTER/E DIT ORDERABLES Final Result Performing Organization Address [facility] Co de Phone Number [facility] [address] [place] [phone] * POCT Rapid COVID Ag (10/07/2024 10:11 AM EST) Rapid COVID Ag Negative Swab 10/07/2024 10:1 1 AM EST Olivia Ramirez MD POINT OF CARE TEST ENTER/E DIT ORDERABLES Final Result * Albumin, Random Urine W/Creatinine (09/15/2024 9:23 AM EST) Pathologist [facility] Creatinine, Urine 65.58 mg/dL [facility] Microalbumin Urine <5.0 mg/L [facility] Microalbum Creatinine Ratio Ur TNP <30 ug/mg cr [facility] Comment:Unable to calculate albumin/creatinine ratio due to lowmicroalbumin or creatinine result. Urine 09/15/2024 9:23 AM EST 09/15/2024 10:51 AM EST [facility] PROFESSOR OF KINESIOLOGY LAB URINE ORDERABLES Final Re sult [facility] [address] [place] [phone] * TSH (09/15/2024 9:18 AM EST) Pathologist [facility] Thyroid Stimulating Hormone 0.41 0.32 - 4.0 uIU/mL [facility] Comment:TSH 3rd Generation ( [facility]) 09/15/2024 9:18 AM EST 09/15/2024 10:53 AM EST Generic External Data Provider LAB BLOOD ORDERAB LES Final Result Performing Organization Address City/[facility]/ZIP Co de Phone Number [facility] [address] [place] [phone] * T4, Free (09/15/2024 9:18 AM EST) Pathologist [facility] Free T4 (Free Thyroxine) 1.05 0.71 - 1.85 ng/dL [facility] 09/15/2024 9:18 AM EST 09/15/2024 10:53 AM EST Generic External Data Provider LAB BLOOD ORDERAB LES Final Result Performing Organization Address [facility] Co de Phone Number [facility] [address] [place] [phone] * Lipid Panel, Standard (09/15/2024 9:18 AM EST) Triglycerides 114 <150 mg/dL [facility] Comment:Desirable Triglyceri de: less than 150 mg/dLBorderline High Triglyceride 150-199 mg/dLHigh Triglyceride: 200-499 mg/dLVery High Triglyceride: greater than or equal to 5OO mg/dL Cholesterol 168 <200 mg/dL [facility] Comment:Desirable Cholestero l: less than 200 mg/dLBorderline High Cholesterol: 200-239 mg/dLHigh Cholesterol: greater than 239 mg/dL LDL Cholesterol Calculated 81 <100 mg/dL [facility] Comment:Desirable LDL: less than 100 mg/dLNear Optimal/Above Optimal LDL: 110- 129 mg/dLBorderline High LDL: 130-159 mg/dLHigh LDL: 160-189 mg/dLVery High LDL: greater than or equal to 190 mg/dL HDL Cholesterol 65 >40 mg/dL [facility] Comment:Desirable HDL: great er than 40 mg/dL Note: This HDL assay may give artificially low results in patients with liver disease. Blood Venous blood specimen / Unknown 09/15/2024 9:18 AM EST 09/15/2024 10:53 AM EST [facility] PROFESSOR OF KINESIOLOGY LAB BLOOD ORDERABLES Final Re sult Performing Organization Address City/[facility]/ZIP Co de Phone Number [facility] [address] [place] [phone] * TSH with Reflex to Free T4 (09/15/2024 12:00 AM EST) TSH reflex Free T4 0.44 0.32 - 4.0 uIU/mL [facility] 09/15/2024 09/15/2024 [facility] PROFESSOR OF KINESIOLOGY LAB BLOOD ORDERABLES Final Re sult [facility] [address] [place] [phone] * BI Mammogram Screening Tomosynthesis Bilateral (09/03/2024 1:15 PM EST) Anatomical Region Laterality Modality Breast Bilateral Mammography 09/03/2024 1:15 PM EST Narrative 09/09/2024 3:06 PM EST ? [facility] ? [address] ?[place] [address] ? Mammography Report ? Signed ? Patient: Davis,Hedy ?MR#: [id number] ?? 87 ? : 1950 ?Acct:[id number] ? Age/Sex: 73 / F ?ADM Date: 09/03/ ? Loc: HO.MAMMO ? Attending Dr: Pat Drake PROFESSOR OF KINESIOLOGY ? Ordering Physician: Gustavus,Pat PROFESSOR OF KINESIOLOGY ?Results: 1Nega ?? tive ? Date of Service: 09/03/ ?Follow Up: 1 Year From Orig ?? inal Mammogram ? Procedure(s): MM tomosynthesis screening BI ?? Accession Number(s): [id number] ? cc: Pat Juan PROFESSOR OF KINESIOLOGY ? EXAMINATION: ?? MM SCREENING DIGITAL BREAST TOMOSYNTHESIS, BILATERAL ? CLINICAL INFORMATION: ? Screening. Asymptomatic. ? COMPARISON: ?? Mammography: Comparison is made with available priors ? TECHNIQUE: ?? Digital breast mammography with tomosynthesis is performed in both the ?? craniocaudal and mediolateral oblique views along with computer-aided ?? detection (CAD). ? FINDINGS: ?? There are scattered areas of fibroglandular density (ACR BI-RADS breast ?? composition Category b). ? There are no significant masses, abnormal calcifications, or other ?? abnormalities. ? MM/MM tomosynthesis screening BI ?? IMPRESSION: ?? No mammographic evidence of malignancy. ? ASSESSMENT: ? BI-RADS BI-RADS 1 - Negative ? RECOMMENDATION: ?? Routine annual mammography screening. ? 1 year F/U ? This examination should not preclude the clinical evaluation of a ?? suspicious palpable abnormality. ? This patient's information was entered into a reminder system with a ?? target due date for their next mammogram. ? Electronically signed by: ??Milagros Dhaliwal DO ??09/09/2024 03:03 PM EST ? Dictated By: ?Milagros Dhaliwal DO ? Signed By: ?<Electronically signed by Milagros Dhaliwal DO in OV> ? 09/09/24 1503 ? DD/ 1315 ? TD/TT: 09/03/24 1336 ? Tree Trimmer Helper: ? Procedure Note Rebecca, Image - 09/09/2024 [facility] [address] [place] [address] Dr. Zepeda, DEREK [address] Mammography Report Signed Patient: Martín Davis#: [id number] [birth year] : 9Acct:[id number] Age/Sex: 73 / FADM Date: 09/03/24 Loc: PIERREO Attending Dr: Pat Juan PROFESSOR OF KINESIOLOGY Ordering Physician: Pat Juan FNPResults: 1Nega tive Date of Service: 09/03/24Follow Up: 1 Year From Orig inal Mammogram Procedure(s): MM tomosynthesis screening BI Accession Number(s): [id number] cc: Pat Juan PROFESSOR OF KINESIOLOGY EXAMINATION: MM SCREENING DIGITAL BREAST TOMOSYNTHESIS, BILATERAL CLINICAL INFORMATION: Screening. Asymptomatic. COMPARISON: Mammography: Comparison is made with available priors TECHNIQUE: Digital breast mammography with tomosynthesis is performed in both the craniocaudal and mediolateral oblique views along with computer-aided detection (CAD). FINDINGS: There are scattered areas of fibroglandular density (ACR BI-RADS breast composition Category b). There are no significant masses, abnormal calcifications, or other abnormalities. MM/MM tomosynthesis screening BI IMPRESSION: No mammographic evidence of malignancy. ASSESSMENT: BI-RADS BI-RADS 1 - Negative RECOMMENDATION: Routine annual mammography screening. 1 year F/U This examination should not preclude the clinical evaluation of a suspicious palpable abnormality. This patient's information was entered into a reminder system with a target due date for their next mammogram. Electronically signed by: Milagros Dhaliwal DO 09/09/2024 03:03 PM EST RP Dictated By: Milagros Dhaliwal DO Signed By: <Electronically signed by Milagros Dhaliwal DO in OV> 09/09/24 1503 DD/ 1315 TD/TT: 09/03/24 1336 Tree Trimmer Helper: [facility] PROFESSOR OF KINESIOLOGY IMG BI PROCEDURES Final Resul t * XR Chest 1 View (08/29/2024 2:32 PM EST) Anatomical Region Laterality Modality Chest Radiographic Nohemi ging 08/29/2024 2:32 PM EST Narrative 08/29/2024 4:09 PM EST ? [facility] ?[address] ?[place] [address] ?XRay Report ? Signed ? Patient: Davis,Hedy ?MR#: [id number] ?? 87 ? : 1950 ?Acct:[id number] ? Age/Sex: 73 / F ?ADM Date: 12/06/24 ? Loc: HO.ED ? Attending Dr: ? Ordering Physician: Shawn Patel ?? Date of Service: 08/29/24 ?? Procedure(s): XR chest 1V ?? Accession Number(s): [id number] ? cc: Shawn Patel; Pat Juan ? EXAMINATION: ?? XR CHEST ? CLINICAL INFORMATION: ?? sob ? COMPARISON: ?? CXR on 04/29/24 ? TECHNIQUE: ?? Frontal view of the chest was obtained. ? FINDINGS: ?? No significant abnormality is noted involving the heart, lungs, ?? mediastinum, bony thorax or soft tissues. ? XR/XR chest 1V ?? IMPRESSION: ?? Unremarkable examination. ? Electronically signed by: ??Rocio Orr MD ??08/29/2024 04:06 PM EST ? Dictated By: ?Rocio Orr MD ? Signed By: ?<Electronically signed by Rocio Orr MD in OV> ? 08/29/24 1606 ? DD/ 1432 ? TD/TT: 08/29/24 1437 ? Tree Trimmer Helper: PN ? Procedure Note Rebecca, Isidoro - 08/29/[address] [address] XRay Report Signed Patient: Martín Davis#: [id number] 89 : 9Acct:[id number] Age/Sex: 73 / FADM Date: 08/29/24 Loc: .ED Attending Dr: Ordering Physician: Shawn Patel Date of Service: 08/29/24 Procedure(s): XR chest 1V Accession Number(s): [id number] cc: Shawn Patel; [facility] EXAMINATION: XR CHEST CLINICAL INFORMATION: sob COMPARISON: CXR on 04/29/24 TECHNIQUE: Frontal view of the chest was obtained. FINDINGS: No significant abnormality is noted involving the heart, lungs, mediastinum, bony thorax or soft tissues. XR/XR chest 1V IMPRESSION: Unremarkable examination. Electronically signed by: Rocio Orr MD 08/29/2024 04:06 PM EST Dictated By: Rocio Orr MD Signed By: <Electronically signed by Rocio Orr MD in OV> 08/29/24 1606 DD/ 1432 TD/TT: 08/29/24 1437 Tree Trimmer Helper: JASON [facility] External Provider IMG XR PROCEDURES Final Result * POCT HGB A1C (08/18/2024 10:24 AM EST) Hemoglobin A1C 5.6 4.0 - 6.0 % QC Media Lot # [id number] Lot# Expiration Date 8,08,026 Blood 08/18/2024 10:2 4 AM EST Result [facility] PROFESSOR OF KINESIOLOGY POINT OF CARE TEST ENTER/EDIT ORDERABLES Final Result * POCT Glucose (08/18/2024 10:24 AM EST) Glucose Blood, POC 101 60 - 200 mg/dL QC Media Lot # [id number] Lot# Expiration Date 53,025 Blood Capillary blood specimen / Unknown 08/18/2024 10:24 AM EST Result [facility] PROFESSOR OF KINESIOLOGY POINT OF CARE TEST ENTER/EDIT ORDERABLES Final Result * Stress test with myocardial perfusion (08/12/2024 8:02 AM EST) 08/12/2024 8:02 AM EST Narrative [facility] - 08/13/2024 12:12 PM EST ? [facility] ?[address] ?[place] [address] ?Nuclear Medicine Report ? Signed ? Patient: Davis,Hedy ?MR#: [id number] ?? 87 ? : 1950 ?Acct:[id number] ? Age/Sex: 73 / F ?ADM Date: 11/19/24 ? Loc: HO.CARD ? Attending Dr: Robert Carranza MD ? Ordering Physician: Robert Carranza MD ?? Date of Service: 08/12/24 ?? Procedure(s): NM cardiolite stress test ?? Accession Number(s): [id number] ? cc: Robert Carranza MD; [facility] ? EXERCISE MYOCARDIAL PERFUSION STUDY ? INDICATION: ?? Shortness of breath, coronary artery calcifications CT scan ? TECHNIQUE: ? The patient was brought in for an exercise perfusion study on ?? 08/12/2024. Patient performed exercise as per Gurjit protocol and was ?? injected ??25 mCi of sestamibi once target heart rate was achieved. ?? Images were obtained using the SPECT gamma camera interlaced with the ?? gating device. Images were obtained in supine position. ? Resting perfusion study was performed on 08/13/2024. Patient was ?? administered 25 mCi of sestamibi intravenously at rest. Images were ?? then obtained in supine position. Total DLP 153 mGy-cm. ? Images were processed with the software and compared side to side in ?? short axis, horizontal long axis and vertical long axis views. ? FINDINGS: ? Raw aquisition reviewed. Arms by the patient's side. ? The stress perfusion study showed ??no significant perfusion ?? abnormality. Both uncorrected as well as CT attenuation corrected ?? images were reviewed. The gated study shows normal LV systolic function ?? with calculated LVEF of 67%. LV cavity is normal in size. The gated ?? study shows normal ??wall thickening and contraction of segments. ? Resting study shows mildly reduced tracer uptake in the basal ?? inferolateral wall. There is improvement with CT attenuation correction ?? suggesting diaphragmatic attenuation artifact. Gating at rest reveals ?? normal wall motion with ejection fraction at 71%. ? The findings are consistent with no clear reversal or fixed perfusion ?? abnormality. ? NM/NM cardiolite stress test ?? IMPRESSION: ? 1. ??Myocardial perfusion imaging study shows probably normal myocardial ?? perfusion. ?? 2. ??Gated LVEF is 67% during stress and 71% during rest. ?? 3. Transient ischemic dilatation not present. ? EKG component of the test reported separately. ? Electronically signed by: ??Robert Carranza MD ??08/13/2024 12:09 ?? PM EST RP ? Dictated By: ?Robert Carranza MD ? Signed By: ?<Electronically signed by Robert Carranza MD in OV> ?08/13/24 1209 ? DD/ 0802 ? TD/TT: 08/13/24 1010 ? Tree Trimmer Helper: ? Procedure Note Donotuseinterpreter, Image - 08/13/2024 [place] [address] Nuclear Medicine Report Signed Patient: Martín Davis#: [id number] 89 : 9Acct:[id number] Age/Sex: 73 / FADM Date: 08/12/24 Loc: [facility] Attending Dr: Robert Carranza MD Ordering Physician: Robert Carranza MD Date of Service: 08/12/24 Procedure(s): NM cardiolite stress test Accession Number(s): [id number] cc: Robert Carrnaza MD; [facility] EXERCISE MYOCARDIAL PERFUSION STUDY INDICATION: Shortness of breath, coronary artery calcifications CT scan TECHNIQUE: The patient was brought in for an exercise perfusion study on 08/12/2024. Patient performed exercise as per Gurjit protocol and was injected 25 mCi of sestamibi once target heart rate was achieved. Images were obtained using the SPECT gamma camera interlaced with the gating device. Images were obtained in supine position. Resting perfusion study was performed on 08/13/2024. Patient was administered 25 mCi of sestamibi intravenously at rest. Images were then obtained in supine position. Total DLP 153 mGy-cm. Images were processed with the software and compared side to side in short axis, horizontal long axis and vertical long axis views. FINDINGS: Raw aquisition reviewed. Arms by the patient's side. The stress perfusion study showed no significant perfusion abnormality. Both uncorrected as well as CT attenuation corrected images were reviewed. The gated study shows normal LV systolic function with calculated LVEF of 67%. LV cavity is normal in size. The gated study shows normal wall thickening and contraction of segments. Resting study shows mildly reduced tracer uptake in the basal inferolateral wall. There is improvement with CT attenuation correction suggesting diaphragmatic attenuation artifact. Gating at rest reveals normal wall motion with ejection fraction at 71%. The findings are consistent with no clear reversal or fixed perfusion abnormality. NM/NM cardiolite stress test IMPRESSION: 1. Myocardial perfusion imaging study shows probably normal myocardial perfusion. 2. Gated LVEF is 67% during stress and 71% during rest. 3. Transient ischemic dilatation not present. EKG component of the test reported separately. Electronically signed by: Robert Carranza MD 08/13/2024 12:09 PM EST Dictated By: Robert Carranza MD Signed By: <Electronically signed by Robert Carranza MD inOV> 08/13/24 1209 DD/ 0802 TD/TT: 08/13/24 1010 Tree Trimmer Helper: [facility] External Provider CV STRE SS PROCEDURES Final Result Performing Organization Address City/[facility] Co de Phone Number [facility] [address] [place] [phone] * Hepatitis C Antibody with Reflex to HCV, RNA, Quantitative, Real-Time PCR (01/31/2023 4:01 PM EDT) Hepatitis C Antibody NON-REACT HERRERA NON-REACT HERRERA [facility] [place] [facility] Index 0.09 <1.00 [facility] [place] [facility] Comment: HCV antibody was non-reactive. There is no laboratory evidence of HCV infection. In most cases, no further action is required. However, if recent HCV exposure is suspected, a test for HCV RNA (test code 44064) is suggested. For additional information please refer to http://education.Future Simple/faq/CCV53r7 (This link is being provided for informational/ educational purposes only.) Blood Venous blood specimen / Unknown 01/31/2023 4:01 PM EDT 01/31/2023 4:01 PM EDT [facility] PROFESSOR OF KINESIOLOGY LAB BLOOD ORDERABLES Final Re sult Performing Organization Address City/[facility]/ZIP Co de Phone Number [facility] [address] [place] [address], [place] [address] [facility] [address] [place] [phone] * Hm Colonoscopy (08/24/2022) Colonoscopy Normal Normal Comment:[facility] - negative 08/24/2022 us Historical Provider MD HEALTH MAINTENANCE Final Result from Last 3 Months or Most Recently Relevant to Health Maintenance Insurance AET[employer] MEDICARE REPLACEMENT [facility] Care Teams Agriculture Manager Relationship Specialty Start Date End Date Pat Juan FNP [address] [place] [address] PCP - General Family Medicine 05/04/22
--- OUTSIDE RECORDS SUMMARY | 2024-11-12 09:56 | XMS_ITS | Encounter Summary ---
Author Organization [employer] Address [address] [facility] 7t [place] [address] Care Team Providers Care Vehicle Dynamics Engineer Name Role Phone [facility] Primary Care Provider [phone] Reason for Visit * Reason Comments Med Refill Encounter Details Date Type Department Care Team ([facility] st Contact Info) Description 01/02/2024 Refill [facility] [address] [place], [place] [phone] [facility] 230 [place], [place] [phone] Tingling of both feet; Depressive disorder Social History Tobacco Use Types Packs/Day Years Used Date Smoking Tobacco: Never Smokeless Tobacco: Never Alcohol Use Standard Drinks/Week Comments Never 0 (1 standard drink = 0.6 oz pur e alcohol) Depression Answer Date Recorded Patient Health Questionnaire-9 Score 7 01/04/2024 Patient Health Questionnaire-9 Score 7 01/04/2024 Last PHQ-9: Questionnaire Data Not on file 0 01/04/2024 Housing Stability Answer Date Recorded What is [...] Answer Date Recorded Patient Health Questionnaire-2 Score 1 01/04/2024 Comments Unknown Sex and Gender Information Value Date Recorded Sex Assigned at Female 07/24/2022 10:16 AM EDT Legal Sex Female 10:16 AM EDT Gender Identity Female 07/24/2022 10:16 AM EDT Sexual Orientation Straight 07/24/2022 10 :16 AM EDT documented as of this encounter Plan of Treatment Not on file documented as of this encounter Visit Diagnoses Diagnosis Tingling of both feet Depressive disorder Depressive disorder, not elsewhere classified documented in this encounter Additional Health Concerns Assessment Noted Time PHQ-9 Depression Total Score: 0 12/17/19 24 9:18 AM EDT documented as of this encounter Care Teams Vehicle Dynamics Engineer Relationship Specialty Start Date End Date Pat Juan FNP [address] [place] [phone] PCP - General Family Medicine 05/04/22 documented as of this encounter
--- OUTSIDE RECORDS SUMMARY | 2024-11-12 09:56 | XMS_ITS | Encounter Summary ---
Author Organization [employer] Address [address] [facility] 7t [place] [address] Care Team Providers Care Loading Inspector Name Role Phone [place] [facility] Primary Care Provider [phone] Reason for Visit * Reason Onset Date Comments Nurse Triage 10/29/2024 Encounter Details Date Type Department Care Team ([facility] st Contact Info) Description 10/29/2024 Telephone [facility] 230 [place], [place] [phone] [facility] 230 [place], [place] [phone] Nurse Triage Social History Tobacco Use Types Packs/Day Years [...] encounter Miscellaneous Notes * Telephone Encounter - Selena Benson RN - 10/29/2024 12:06 PM EST Per [facility] [place], pt seen on 10/27/24 for CP and SOB. Pt tested positive for COVID- 19. Pt given rx for prednisone 20 mg tablet PO DAILY 7 Days. Call returned to Hedy Davis via [employer] Buffet Attendant as this technical proposal writer is remote to triage below. No film process operator needed as this technical proposal writer speaks Hebrew. Reports continues to have similar sx. Pt started prednisone on same day of ER visit. No fever per patient. Pt using nebulizer Q4H. Per pt also using inhaler. Pt wants follow up appt. Pt advised that due to recent COVID-19 dx will need to be telehealth. Pt agreeable. Booked for visit tomorrow . Reviewed home care advise, ER precautions and reason s to call back. Protocol Used: COVID-19 - Diagnosed or Suspected (Adult) Protocol-Based Disposition: Discuss with PCP and Callback by Nurse Today Future Appointments Date Time Provider Department Center 10/30/2024 10:15 AM Delmy Morales MD MEDICINE [facility] Insurance verified as active per Real Time Eligibility in [facility]. Video visit offered and caller accepted Positive Triage Question: * Continuous (nonstop) coughing interferes with work or school and no improvement using cough treatment per Care Advice * All higher-acuity triage questions were negative Care Advice Discussed: * Reassurance and Education - Diagnosed With COVID-19 by Doctor (or [employer] HISTORY PROFESSOR/PA) and Mild Symptoms * Cough Medicines * Coughing Spells * Reasons To Call Back - Fever over 103 F (39.4 C) - Chest pain or difficulty breathing occurs - You become worse * Telephone Encounter - Olga Scott - 10/29/2024 11:35 AM EST Patient calling to report ED visit on : Date: 10/27 Hospital: [facility] Seen for: Asthma (Dx Covid-19) Symptomatic Yes Breathing Trouble *if yes message should go to Triage Patient advised will forward to team nurse for follow up [phone] (czech) documented in this encounter Plan of Treatment Not on file documented as of this encounter Visit Diagnoses Not on filedocumented in this encounter Additional Health Concerns Assessment Noted Time PHQ-9 Depression Total Score: 0 03/19/20 24 8:51 AM EDT documented as of this encounter Care Teams Loading Inspector Relationship Specialty Start Date End Date Pat Juan FNP [address] [place] [phone] PCP - General Family Medicine 05/04/22 documented as of this encounter
--- OUTSIDE RECORDS SUMMARY | 2024-11-12 09:56 | XMS_ITS | Encounter Summary ---
Author Organization [employer] Address [address] [facility] 7t [place] [address] Care Team Providers Care Light Adjuster Name Role Phone Charlotte Susan PLANT FACILITIES TECHNICIAN Primary Care Provider [phone] Encounter Details Date Type Department Care Team (Late st Contact Info) Description 08/09/2023 Abstract [facility] MED[facility]INE [address] [place] [address] Rhina Diez Social History Tobacco Use Types Packs/Day Years [...] documented as of this encounter Care Teams Light Adjuster Relationship Specialty Start Date End Date Pat Juan FNP [address] [place] [address] PCP - General Family Medicine 05/04/22 documented as of this encounter
--- OUTSIDE RECORDS SUMMARY | 2024-11-12 09:56 | XMS_ITS | Encounter Summary ---
Author Organization [employer] Address [address] [facility] 7t [place] [address] Care Team Providers Care Right Of Way Clearer Name Role Phone [facility] Primary Care Provider [phone] Reason for Visit * Reason Comments Med Refill Encounter Details Date Type Department Care Team ([facility] st Contact Info) Description 02/21/2024 Refill [facility] 230 [place], [place] [phone] [facility] 230 [place], [place] [phone] Depressive disorder Social History Tobacco Use Types [...] Assessment Noted Time PHQ-9 Depression Total Score: 7 01/04/20 24 8:14 AM EDT documented as of this encounter Care Teams Right Of Way Clearer Relationship Specialty Start Date End Date Pat Juan FNP [address] [place] [phone] PCP - General Family Medicine 05/04/22 documented as of this encounter
--- OUTSIDE RECORDS SUMMARY | 2024-11-12 09:56 | XMS_ITS | Encounter Summary ---
Author Organization [email or web address] Address [address] [facility] 7t [place] [address] Care Team Providers Care Wire Web Worker Name Role Phone [facility] Primary Care Provider [phone] Reason for Visit * Reason Comments Med Refill Encounter Details Date Type Department Care Team ([facility] st Contact Info) Description 11/08/2023 Refill [facility]INE 230 [place], [place] [phone] [facility] 230 [place], [place] [phone] Tingling of both feet Social History Tobacco Use Types Packs/Day Years Used Date Smoking Tobacco: Never Smokeless Tobacco: Never Alcohol Use Standard Drinks/Week Comments Never 0 (1 standard drink = 0.6 oz pur e alcohol) Depression Answer Date Recorded Patient Health Questionnaire-9 Score 13 11/05/2023 Patient Health Questionnaire-9 Score 13 11/05/2023 Last PHQ-9: Questionnaire Data Not on file 0 11/05/2023 Housing Stability Answer Date Recorded What is [...] Answer Date Recorded Patient Health Questionnaire-2 Score 4 11/05/2023 Comments Unknown Sex and Gender Information Value [...] Assessment Noted Time PHQ-9 Depression Total Score: 13 024 11:25 AM EST documented as of this encounter Care Teams Wire Web Worker Relationship Specialty Start Date End Date Pat Juan FNP [address] [place] [address] PCP - General Family Medicine 05/04/22 documented as of this encounter
--- OUTSIDE RECORDS SUMMARY | 2024-11-12 09:56 | XMS_ITS | Encounter Summary ---
Author Organization [employer] Address [address] [facility] 7t [place] [address] Care Team Providers Care User Interface Designer Name Role Phone [facility] Primary Care Provider [phone] Reason for Visit * Reason Comments Med Refill Encounter Details Date Type Department Care Team ([facility] st Contact Info) Description 12/06/2023 Refill [facility] 230 [place], [place] [phone] [facility] 230 [place], [place] [phone] Depressive disorder Social History Tobacco Use Types [...] documented as of this encounter Care Teams User Interface Designer Relationship Specialty Start Date End Date Pat Juan FNP [address] [place] [address] PCP - General Family Medicine 05/04/22 documented as of this encounter
--- OUTSIDE RECORDS SUMMARY | 2024-11-12 09:56 | XMS_ITS | Encounter Summary ---
Author Organization [employer] Address [address] [facility] 7t [place] [address] Care Team Providers Care Beef Tagger Name Role Phone [facility] Primary Care Provider [phone] Reason for Visit * Reason Onset Date Comments Nurse Triage 06/21/2023 Encounter Details Date Type Department Care Team ([facility] st Contact Info) Description 06/21/2023 Telephone [facility]INE 230 [place], [place] [phone] [facility] 230 [place], [place] [phone] Nurse Triage Social History Tobacco Use Types [...] encounter Miscellaneous Notes * Telephone Encounter - Denise Gloria RN - 06/21/2023 10:57 AM EDT Triage call Pt daughter, TORY Galindo, reports that Pt has been having some asthma symptoms for several days but, yesterday into today symptoms have worsened. Pt has a cough producing greenish-yellow sputum, wheezing present, some sob present, neg for fever but, some chills. Pt has been usingsymbicort inhaler as prescribed and proair inhaler has been used more frequently than q4hrs. Daughter is advised to bring Pt to [facility] today for provider to see Pt . Daughter agreed and will bring in around 1230pm today. Pt is drinking adequate fluids, warm liquids are encouraged. Protocol Used: Asthma Attack (Adult) Protocol-Based Disposition: See in Office or Video Visit Today Video visit not offered Positive Triage Questions: * Coughing up jody-colored or yellow-green sputum * Patient wants to be seen * All higher-acuity triage questions were negative Care Advice Discussed: * Reassurance and Education - Mild Asthma Attack * Asthma Attack * Asthma Attack - Symptoms * Asthma Attack - Treatment - Quick-Relief Medicine * Asthma Attack - Treatment - Controller Medicine * Drink Plenty of Liquids and Use a Humidifier * Reasons To Call Back - An asthma attack is not better after 2 or 3 quick-relief treatments (such as albuterol by inhaleror nebulizer) 20 minutes apart. - Quick-relief asthma medicine (such as albuterol by inhaler or nebulizer) is needed more often than every 4 hours - Mild asthma symptoms not better after 24 hours - Mild wheezing or other asthma symptoms come and go for more than 3 days - You become worse * Telephone Encounter - Porsche Adames - 06/21/2023 10:38 AM EDT Symptom: Wheezing Outcome: Talk to a nurse or provider within 15 minutes Reason: Any trouble breathing through the nose and mouth. The caller accepted this outcome Please contact at [phone] czech documented in this encounter Plan of Treatment Not on file documented as of this encounter Visit Diagnoses Not on filedocumented in this encounter Additional Health Concerns Assessment Noted Time PHQ-9 Depression Total Score: 8 06/08/20 23 11:30 AM EDT documented as of this encounter Care Teams Beef Tagger Relationship Specialty Start Date End Date DrakePat giraldo FNP [address] [place] [address] PCP - General Family Medicine 05/04/22 documented as of this encounter
--- OUTSIDE RECORDS SUMMARY | 2024-11-12 09:56 | XMS_ITS | Encounter Summary ---
Author Organization [employer] Address [address] [facility] 7[address] [place] [address] Care Team Providers Care Brick Siding Applicator Name Role Phone [facility] Primary Care Provider [phone] Encounter Details Date Type Department Care Team (Late st Contact Info) Description 10/27/2024 Orders Only [facility] External Provider, [facility] Social History Tobacco Use Types Packs/Day Years [...] t he electric, gas, oil or water [employer] threatened to shut off services in your [...] on file documented as of this encounter Procedures Procedure Name Priority Date/Time Associated Diagnosis Comments STREP A NUCLEIC ACID Routine 10/27/2024 3:38 PM EST HIGH SENSITIVITY TROPONIN I Routine 10/27/2024 3:38 PM EST SARS COV2/INFLUENZA A/B AND RSV RNA QL NAAT Routine 10/27/2024 3:38 PM EST CBC WITH AUTO DIFFERENTIAL Routine 10/27/2024 3:38 PM EST B TYPE NATRIURETIC PEPTIDE (BNP) Routine 10/27/2024 3:38 PM EST MAGNESIUM Routine 10/27/2024 3:38 PM EST HEPATIC FUNCTION PANEL Routine 10/27/2024 3:38 PM EST BASIC METABOLIC PANEL Routine 10/27/2024 3:38 PM EST XR CHEST 2 VIEWS Routine 10/27/2024 1:38 PM EST documented in this encounter Results * (ABNORMAL) SARS-CoV-2 RNA, Influenza A/B, and RSV RNA, Ql NAAT (10/27/2024 3:38 PM EST) Influenza A PCR NEGATIVE Negative [facility] Influenza B PCR NEGATIVE Negative [facility] Resp Syncy Virus RNA Qual PCR NEGATIVE Negative [facility] SARS COV2 PCR POSITIVE(A) Negative [facility] Comment:All test results mus t be [...] use by authorized laboratories.Testing performed on the [employer] GeneXpert utilizingreal-time RT-PCR.All SARS CoV2 and positive influenza A/B results arereported to [facility]. 10/27/2024 3:38 PM EST 10/27/2024 3:45 PM EST [employer] External Data Provider LAB MICROBIOLOGY - GENERAL ORDERABLES Final Result Performing Organization Address [facility] Co de Phone Number [facility] [address] [place] [phone] * High Sensitivity Troponin I (10/27/2024 3:38 PM EST) [facility] TROPONIN I HIGH SENSITIVITY 2.9 <3.5 - 17.0 ng/L [facility] Comment:The [place] high sens itivity Troponin-I results should beused in conjunction with other diagnostic information suchas ECG, clinical observations and information, and patientsymptoms to aid in the diagnosis of RI. 10/27/2024 3:38 PM EST 10/27/2024 3:45 PM EST [employer] External Data Provider LAB BLOOD ORDERAB LES Final Result Performing Organization Address [facility] Co de Phone Number [facility] [address] [place] [address] [phone] * B Type Natriuretic Peptide (BNP) (10/27/2024 3:38 PM EST) [facility] B Type Natriuretic Peptide 15 <100 pg/mL [facility] Comment:For those patients w ho are being treated with Natrecor(nesiritide, recombinant BNP), BNP testing should beperformed at least two hours post treatment in order toensure that only endogenous levels of BNP are detected. 10/27/2024 3:38 PM EST 10/27/2024 3:45 PM EST Generic External Data Provider LAB BLOOD ORDERAB LES Final Result Performing Organization Address [facility] Co de Phone Number [facility] [address] [place] [phone] * Magnesium (10/27/2024 3:38 PM EST) Pathologist [facility] Magnesium 1.9 1.6 - 2.6 mg/dL [facility] 10/27/2024 3:38 PM EST 10/27/2024 3:45 PM EST Generic External Data Provider LAB BLOOD ORDERAB LES Final Result Performing Organization Address [facility] de Phone Number [facility] [address] [place] [address] [phone] * (ABNORMAL) Basic Metabolic Panel (10/27/2024 3:38 PM EST) Pathologist [facility] Sodium 141 135 - 145 mmol/L [facility] Potassium 4.2 3.3 - 5.1 mmol/L [facility] Chloride 104 96 - 108 mmol/L [facility] Carbon Dioxide 25 22 - 29 mmol/L [facility] Anion Gap 16 12 - 20 [facility] Urea Nitrogen (BUN) 28(H) 9 - 16 mg/dL [facility] Creatinine, Serum 1.01 0.5 - 1.4 mg/dL [facility] Creatinine Clr Calc Pharmacy 41.9 [facility] Comment:Provided height and weight: 157.48 cm,65 kg.eGFR (calculated from the MDRD study equation) and eCrCl(calculated from the Cockcroft-Gault equation) are based ondifferent parameters and may not yield comparable results.If eCrCl result is absurd, please check patient'sheight/weight. Estimated Glomerular Filt Rate 53 [facility] Comment:Chronic Kidney Disea se: Estimated GFR < 60 mL/min/1.50x1Uiiucx Kidney Disease: Estimated GFR < 15 mL/min/1.73m2 Glucose 83 60 - 115 mg/dL [facility] Calcium 8.3(L) 8.4 - 10.2 mg/dL [facility] 10/27/2024 3:38 PM EST 10/27/2024 3:45 PM EST Generic External Data Provider LAB BLOOD ORDERAB LES Final Result Performing Organization Address [facility] Co wv Phone Number [facility] [address] [place] [address] [phone] * (ABNORMAL) Hepatic Function Panel (10/27/2024 3:38 PM EST) [facility] Bilirubin, Total 0.5 0.0 - 1.0 mg/dL [facility] Bilirubin, Direct 0.2 0.0 - 0.5 mg/dL [facility] Aspartate Amino Transferase 49(H) 5 - 31 U/L [facility] Alanine Aminotransferase 41(H) 0 - 31 U/L [facility] Total Protein 7.5 6.5 - 8.0 g/dL [facility] Albumin Level 3.9 3.5 - 5.0 g/dL [facility] Alkaline Phosphatase 73 39 - 117 U/L [facility] 10/27/2024 3:38 PM EST 10/27/2024 3:45 PM EST Generic External Data Provider LAB BLOOD ORDERAB LES Final Result Performing Organization Address [facility] de Phone Number [facility] [address] [place] [address] [phone] * Strep A Nucleic Acid (10/27/2024 3:38 PM EST) [employer] SERIAL# [id number] [facility] Strep A Nucleic Acid Negative Negative [facility] Comment:All test results mus t [...] LAB MICROBIOLOGY - GENERAL ORDERABLES Final Result [facility] [address] [place] [address] [phone] * (ABNORMAL) CBC auto differential (10/27/2024 3:38 PM EST) Pathologist Esteban White Blood Count 5.4 4.8 - 10.8 X10*3/uL [facility] Red Blood Count 4.12(L) 4.20 - 5.50 X10*6/uL [facility] Hemoglobin 12.6 12.0 - 16.0 g/dl [facility] Hematocrit 39.0 37.0 - 47.0 % [facility] Mean Corpuscular Volume 94.7 80.0 - 98.0 fL [facility] Mean Corpuscular Hemoglobin 30.6 27.0 - 33.0 pg [facility] Mean Corpuscular HGB Conc 32.3 31.0 - 35.0 g/dl [facility] Red Cell Distribution Width 15.9 11.0 - 16.0 % [facility] Platelet Count 178 160 - 400 X10*3/uL [facility] Mean Platelet Volume 10.1 9.4 - 12.3 fL [facility] Neutrophils Percent Auto 58.8 45 - 73 % [facility] Imm Gran Pct Auto 0.2 0.0 - 0.4 % [facility] Lymphocytes Percent Auto 26.6 20 - 40 % [facility] Monocytes Percent Auto 13.5(H) 2 - 11 % [facility] Eosinophils Percent Auto 0.7 0 - 4 % [facility] Basophils Percent Auto 0.2 0 - 2 % [facility] NRBC Pct Auto 0.0 0.0 - 0.2 /100WBC [facility] Neutrophils Absolute Auto 3.2 2.0 - 8.3 x10*3/uL [facility] Imm Gran Abs Auto 0.01 0.00 - 0.03 X10*3/uL [facility] Lymphocytes Absolute Auto 1.4 1.2 - 4.9 X10*3/uL [facility] Monocytes Absolute Auto 0.7 0.1 - 1.2 X10*3/uL [facility] Eosinophils Absolute Auto 0.0 0.0 - 0.4 X10*3/uL [facility] Basophils Absolute Auto 0.0 0.0 - 0.2 X10*3/uL [facility] NRBC Abs Auto 0.000 0.0 - 0.012 X10*3/uL [facility] 10/27/2024 3:38 PM EST 10/27/2024 3:45 PM EST us Generic External Data Provider LAB BLOOD ORDERAB LES Final Result Performing Organization Address [facility] Co de Phone Number [facility] [address] [place] [phone] * XR Chest 2 Views (10/27/2024 1:38 PM EST) Anatomical Region Laterality Modality Chest Radiographic Nohemi ging 10/27/2024 1:38 PM EST Narrative 10/27/2024 2:21 PM EST ? [facility] ?[address] ?[place] [address] ?XRay Report ? Signed ? Patient: Davis,Hedy ?MR#: [id number] ?? 87 ? : 1950 ?Acct:[id number] ? Age/Sex: 74 / F ?ADM Date: 02/03/25 ? Loc: HO.ED ? Attending Dr: ? Ordering Physician: Vikki Christian ?? Date of Service: 10/27/24 ?? Procedure(s): XR chest 2V ?? Accession Number(s): [id number] ? cc: Vikki Christian; Pat Juan ENERGY MANAGER ? EXAMINATION: ??XR CHEST 2 VIEWS ? [...] DD/ 1338 ? TD/TT: 10/27/24 1413 ? Missile Inspector: ? Procedure Note Isidoro Fernandez - 10/27/2024 [place] [address] XRay Report Signed Patient: Martín Davis#: [id number] 89 : 9Acct:[id number] Age/Sex: 74 / FADM Date: 10/27/24 Loc: HO.ED Attending Dr: Ordering Physician: Vikki Christian Date of Service: 10/27/24 Procedure(s): XR chest 2V Accession Number(s): [id number] cc: Vikki Christian; Pat Juan [facility] EXAMINATION: XR CHEST 2 VIEWS HISTORY: cough, [...] Luis Bill MD 10/27/2024 02:18 PM EST Dictated By: Pedro Luis Bill MD Signed By: <Electronically signed by Pedro Luis Bill MD in OV> 10/27/24 1418 DD/ 1338 TD/TT: 10/27/24 1413 Missile Inspector: [facility] External Provider IMG XR PROCEDURES Final Result documented in this encounter Visit Diagnoses Not on filedocumented in this encounter Additional Health Concerns Assessment Noted Time PHQ-9 Depression Total Score: 0 03/19/20 24 8:51 AM EDT documented as of this encounter Care Teams Brick Siding Applicator Relationship Specialty Start Date End Date Pat Juan FNP [address] [place] [phone] PCP - General Family Medicine 05/04/22 documented as of this encounter
--- OUTSIDE RECORDS SUMMARY | 2024-11-12 09:56 | XMS_ITS | Encounter Summary ---
Author Organization [employer] Address [address] [facility] 7t [place] [address] Care Team Providers Care Platinum Smith Name Role Phone [place] INTERNATIONAL MARKETING SPECIALIST Primary Care Provider Reason for Visit * Reason Comments Med Refill Encounter Details Date Type Department Care Team ([facility] st Contact Info) Description 10/20/2024 Refill [facility] [address] [place], [place] [phone] Lori Werner MD [address] [place], [place] [phone] Seasonal allergies Social History Tobacco Use Types Packs/Day Years [...] as of this encounter Visit Diagnoses Diagnosis Seasonal allergies Allergic rhinitis, cause unspecified documented in this encounter Additional Health Concerns Assessment Noted Time PHQ-9 Depression Total Score: 0 03/19/20 24 8:51 AM EDT documented as of this encounter Care Teams Platinum Smith Relationship Specialty Start Date End Date Pat Juan FNP [address] [place] [phone] PCP - General Family Medicine 05/04/22 documented as of this encounter
--- OUTSIDE RECORDS SUMMARY | 2024-11-12 09:56 | XMS_ITS | Encounter Summary ---
Author Organization [employer] Address [address] [facility] 7t [place] [address] Care Team Providers Care Construction Director Name Role Phone [facility] [facility] Primary Care Provider [phone] Reason for Visit * Reason Onset Date Comments Med Refill 01/21/2024 Encounter Details Date Type Department Care Team ([facility] st Contact Info) Description 01/21/2024 Telephone [facility] MEDICINE [address] [place], [place] [phone] [facility] [address] [place], [place] [phone] Med Refill Social History Tobacco Use Types [...] encounter Miscellaneous Notes * Telephone Encounter - Cynthia Crespo LPN - 01/21/2024 11:57 AM EDT Medication was sent to [facility] on 11/26/23 #30 with 2 refills * Telephone Encounter - Eliana Varela - 01/21/2024 11:01 AM EDT TC from pt requesting medication refill. Medications needing refill : mirtazapine (Remeron SolTab) 45 MG disintegrating tablet To be sent to: [facility] at [place], [place] - [address] [place] [address] documented in this encounter Plan of Treatment Not on file documented as of this encounter Visit Diagnoses Not on filedocumented in this encounter Additional Health Concerns Assessment Noted Time PHQ-9 Depression Total Score: 7 01/04/20 24 8:14 AM EDT documented as of this encounter Care Teams Construction Director Relationship Specialty Start Date End Date Pat Juan FNP [address] [place] [phone] PCP - General Family Medicine 05/04/22 documented as of this encounter
--- OUTSIDE RECORDS SUMMARY | 2024-11-12 09:56 | XMS_ITS | Encounter Summary ---
Author Organization [employer] Address [address] [facility] 7t [place] [address] Care Team Providers Care Melter Supervisor Name Role Phone [place] [facility] Primary Care Provider [phone] Reason for Visit * Reason Onset Date Comments Med Refill 02/29/2024 Encounter Details Date Type Department Care Team ([facility] st Contact Info) Description 02/29/2024 Telephone [facility] MEDICINE 230 [place], [place] [phone] [facility] 230 [place], [place] [phone] Med Refill Social History Tobacco Use Types [...] Telephone Encounter - Cynthia Crespo LPN - 02/29/2024 2:11 PM EDT Medication pended to PCP for approval. * Telephone Encounter - Cheyenne Hernandez - 02/29/2024 2:07 PM EDT TC from pt requesting medication refill. Pt is out of medication. States has not been able to sleepand pharmacy has been requesting refill since 02/20. Medications needing refill : zolpidem (Ambien) 10 MG tablet To be sent to: [facility] at [place], [place] - [address] [facility] documented in this encounter Plan of Treatment Not on file documented as of this encounter Visit Diagnoses Not on filedocumented in this encounter Additional Health Concerns Assessment Noted Time PHQ-9 Depression Total Score: 7 01/04/20 24 8:14 AM EDT documented as of this encounter Care Teams Melter Supervisor Relationship Specialty Start Date End Date Pat Juan FNP [address] [place] [phone] PCP - General Family Medicine 05/04/22 documented as of this encounter
--- OUTSIDE RECORDS SUMMARY | 2024-11-12 09:56 | XMS_ITS | Encounter Summary ---
Author Organization [employer] Address [address] [facility] 7t [place] [address] Care Team Providers Care Enlisted Advisor Name Role Phone [facility] Primary Care Provider [phone] Reason for Visit * Reason Onset Date Comments Medication Question 10/21/2024 Encounter Details Date Type Department Care Team ([facility] st Contact Info) Description 10/21/2024 Refill [facility] MEDICINE 230 [place], [place] [phone] [facility] 230 [place], [place] [phone] Depressive disorder Social History Tobacco Use Types [...] encounter Miscellaneous Notes * Telephone Encounter - Nadia Michelle RN - 10/21/2024 2:10 PM EST TC placed to patient [phone] via [employer] ([facility] #[id number]). Per anup, patient p/u ambien on 09/29/24 for a 28 day supply, medication is not due until 10/27/24. Patient reports she had the medication delivered to her on 09/19/25. RN placed patient on hold and called pharmacy [phone] [facility] on delivery date. Pharmacy reports the medication was delivered on 09/22/2025. RN notified pharmacy of discrepancy with PDMP. RN notified patient, medication will be pended to provider as perpharmacy patient received medication on 09/22/25 and is due for refill. Patient verbalized understanding. Patient to f/u PRN. * Telephone Encounter - Carlos España - 10/21/2024 12:31 PM EST Tc from pt calling in regards to zolpidem (Ambien) 10 MG tablet stating she is out of medication and needs a refill. If any questions please contact pt at [phone]. (Mosotho Speaker) documented in this encounter Plan of Treatment Not on file documented as of this encounter Visit Diagnoses Diagnosis Depressive disorder Depressive disorder, not elsewhere classified documented in this encounter Additional Health Concerns Assessment Noted Time PHQ-9 Depression Total Score: 0 03/19/20 24 8:51 AM EDT documented as of this encounter Care Teams Enlisted Advisor Relationship Specialty Start Date End Date Pat Juan FNP [address] [place] [phone] PCP - General Family Medicine 05/04/22 documented as of this encounter
--- OUTSIDE RECORDS SUMMARY | 2024-11-12 09:56 | XMS_ITS | Clinical Summary ---
Author Organization 175 [facility] Address [address] [place] [address] Phone Care Team Providers Care Manager Child Name Role Phone [facility] Primary Care Provider Allergies Active Allergy Reactions Criticality Noted Date Comments Morphine Rash 07/19/2023 Medications acetaminophen (TYLENOL) 500 mg tablet Take 1 Tablet by mouth every 6 hours as needed. Active albuterol 2.5 mg /3 mL (0.083 %) nebulizer solution Take 1 Vial by nebulization every 4 hours as needed. Active albuterol HFA (PROAIR HFA ; PROVENTIL HFA ; VENTOLIN HFA) 90 mcg/actuation inhaler Inhale 2 Puffs into the lungs every 4 hours as needed. Active ascorbic acid (Vitamin C) 500 mg chewable tablet Take by mouth. Activ e atorvastatin (LIPITOR) 40 mg tablet Take 1 Tablet by mouth daily. Active calcium-vitamin D3-vitamin K 500 mg-1,000 unit-40 mcg tablet,chewable Take by mouth. Active cetirizine (ZyrTEC) 10 mg tablet Take 1 Tablet by mouth daily. Active citalopram (CeleXA) 20 mg tablet Take 1 Tablet by mouth daily. Active cyanocobalamin (VITAMIN B-12) 1,000 mcg tablet Take 1 Tablet by mouth daily. Active levothyroxine sodium (TIROSINT) 50 mcg capsule Take by mouth. Act milvia linaCLOtide (Linzess) 72 mcg capsule Take by mouth. Act milvia mirtazapine (REMERON) 30 mg tablet Take 1 Tablet by mouth at bedtime. Active montelukast (SINGULAIR) 10 mg tablet Take 1 Tablet by mouth at bedtime. Active multivitamin (Multiple Vitamins) tablet Take by mouth. Activ e pantoprazole (PROTONIX) 40 mg EC tablet Take 1 Tablet by mouth daily. Active sucralfate (CARAFATE) 100 mg/mL suspension Take 10 mL by mouth 4 times daily. Active zolpidem (AMBIEN) 10 mg tablet Take by mouth at bedtime as needed. Active budesonide-form oteroL (SYMBICORT) 160-4.5 mcg/actuation inhaler INHALE 2 PUFFS EVERY MORNING AND DAILY AT BEDTIME 4 Active Tymlos 80 mcg (3,120 mcg/1.56 mL) pen injector injection syringe 4 Active famotidine (PEPCID) 20 mg tablet Take 1 tablet (20 mg total) by mouth. 1 Active meloxicam (MOBIC) 7.5 mg tablet Take 1 tablet (7.5 mg total) by mouth 1 (one) time each day. 4 Active naproxen (EC NAPROSYN) 500 mg EC tablet Take 1 tablet (500 mg total) by mouth. 8 Active BD Ultra-Fine Mini Pen Needle 31 gauge x 3/16 needle 4 Active Evenity 4 Active traMADoL (ULTRAM) 50 mg tablet Take 1 tablet (50 mg total) by mouth. 3 Active Incruse Ellipta 62.5 mcg/actuation inhalation 4 Active Active Problems Problem Noted Date Diagnosed Date Meningioma, cerebral 07/19/2023 Overview (07/22/2024): Last Assessment & Plan: Patient is 10 days s/p right frontal craniotomy and resection of tumor, path: Grade 1 meningioma. Patient states her typical preop headache is gone. She has some soreness from the incision, but mild. She is using Tylenol or once or twice a day tramadol. She has not had any wound drainage, fevers, sweats chills. She has decreased appetite, preop also tended to not eat much per patient. Subjectively the patient feels a little weak, but no overt weakness in the extremities, patient is ambulating independently. Ms. Davis is doing well postop, wound is healing well. We will put her on the schedule for 1 year follow-up brain MRI with and without contrast. We talked about the importance of a healthy diet with proteins to help with healing, and overall strength and muscle mass. She would like to go for some physical therapy for core strengthening, deconditioning. Patient given prescription. Does not need a refill on her tramadol. All postop questions answered. She can follow-up as needed. Assessment & Plan (08/01/2024 4:35 PM EST): Ms. Davis is doing quite well with no sequela from the surgery. MRI shows no residual or recurrent meningioma and we will continue to follow with surveillance scans every year for the first 5 years then we can reassess the need. She has history of chronic headaches which were treated with Fioricet in [place] but she has been unable to obtain it here. I will try again to order it for her from the [facility] pharmacy. Immunizations Name Administration Dates Next Due Influenza trivalent, 0.5mL ( Fluzone High-dose) 65yo and older 08/13/2019 Influenza trivalent, with pr eservative (Fluzone; Afluria) 6mo and older 06/08/2023,06/22/2022,08/23/2018,08/07,06/17/2015,11/23/2014,06/02/2013 ,09/02/2009 Pneumococcal conjugate 13 va lent (Prevnar 13, PCV13) 2mo and older 08/07/2017 Pneumococcal polysaccharide 23 valent (Pneumovax 23) 2yo and older 09/02/2015,09/26/2007 TD, Adsorbed, Preservative Free 04/14/2022 Tdap Tetanus diptheria acell ular pertussis (Boostrix; Adacel) 7yo and older 07/04/2011 Zoster Live 11/23/2014 Zoster recombinant (Shingrix ) 19yo and older 07/24/2022,04/28/2022 Surgical History Surgery Date Site/Laterality Comments OTHER SURGICAL HISTORY PROCEDURE: HISTORY OTHER; COMMENT: Thyroid nodule removed, benign CATARACT EXTRACTION PROCEDURE: HISTORICAL CATARACT REMOVAL LITHOTRIPSY PROCEDURE: HISTORICAL LITHOTRIPSY OTHER SURGICAL HISTORY 07/31/2023 PROCEDURE: [place] CRNEC TREPHINE BONE FLAP MENINGIOMA SUPRATENTOR; COMMENT: Right frontal craniotomy and resection of tumor, grade 1 meningioma, Dr. Ríos CRANIOTOMY Medical History Medical History Date Comments Hypothyroidism DX:Hypothyroidis m Mild intermittent asthma, uncomplicated DX:Mild intermittent asthma, uncomplicated Depression DX:Depression Dyslipidemia DX:Dyslipidemia Essential (primary) hypertension DX:Essential (primary) hypertension Osteoporosis DX:Osteoporosis Borderline diabetes DX:Borderlin e diabetes Social History Tobacco Use Types Packs/Day Years Used Date Smoking Tobacco: Never Smokeless Tobacco: Never Comments Unknown Sex and Gender Information Value Date Recorded Sex Assigned at Female 07/28/2024 2:33 PM EST Legal Sex Female 8:25 PM EST Gender Identity Female 07/28/2024 2:33 PM EST Sexual Orientation Not on file Obstetrics History Last Filed Vital Signs Vital Sign Reading Time Taken Comments Blood Pressure - - Pulse - - Temperature - - Respiratory Rate - - Oxygen Saturation - - Inhaled Oxygen Concentration - - Weight 63.5 kg (140 lb) 07/28/2024 11:59 AM EST Height 149.9 cm (4' 11 ) 07/28/2024 11:59 AM EST Body Mass Index 28.28 07/28/2024 11:59 AM EST Plan of Treatment Health Maintenance Due Date Last Done Comments Diabetes: Annual Foot Exam 1960 Diabetes: Annual Retina Eye Exam 1960 RSV Immunization Patients 60+ Years Old (1 - 1-dose 75+ series) 2023 Falls Risk Assessment 10/19/2023 Medicare Annual Wellness Visit 10/19/2023 Osteoporosis Screening (Bone Density Screening) 10/19/2023 Social Influencers of Health Screening 10/19/2023 COVID-19 Vaccine ( season) 2024 01/12/2021, 12/15/2020 Influenza Vaccine (#1) 2024 , 06/22/2022, 08/13/2019, Additional history exists Diabetes: Annual Urine Albumin-Creatinine Ratio (uACR) 07/28/2024 Diabetes: Blood Sugar Control Test (HGBA1C) 07/28/2024 12/17/2023 Depression Screening 03/19/2025 03/19/2024 Diabetes: Annual GFR (Glomerular Filtration Rate) 04/29/2025 04/29/2024 Hypertension/CHF/CAD Annual BMP Blood Test 04/29/2025 04/29/2024 Cholesterol Screening (Lipid Panel) 02/01/2028 01/31/2023 DTaP,Tdap,and Td Vaccines (3 - Td or Tdap) 04/14/2032 04/14/2022, 07/04/2011 Pneumococcal Vaccine: 50+ Years Completed 08/07/2017, 09/02/2015, 09/26/2007 Zoster Vaccines Completed 07/24/2022, 01/2022, 11/23/2014 Hepatitis C Screening Completed 01/31/2023 HIB Vaccines Aged Out No longer eligi [...] on patient's age to complete this topic MMR Vaccines Aged Out No longer eligi ble based on patient's age to complete this topic Meningococcal ACWY Vaccine Aged Out N o longer eligible based on patient's age to complete this topic Meningococcal B Vacine Aged Out No lo nger eligible based on patient's age to complete this topic RSV Immunization Patients Under 20 months Aged Out No longer eligible based on patient's age to complete this topic Varicella Vaccines Aged Out No longer eligible based on patient's age to complete this topic Insurance [employer] MEDICARE ADVANTAGE Care Teams Manager Child Relationship Specialty Start Date End Date [facility] [address] [phone] PCP - General Family Medicine 07/28/24
--- OUTSIDE RECORDS SUMMARY | 2024-11-12 09:56 | XMS_ITS | Encounter Summary ---
Author Organization [employer] Address [address] [facility] 7t [place] [address] Care Team Providers Care Personal Property Assessor Name Role Phone [facility] Primary Care Provider [phone] Reason for Visit * Reason Comments Med Refill Encounter Details Date Type Department Care Team ([facility] st Contact Info) Description 10/15/2024 Refill [facility] MEDICINE 230 [place], [place] [phone] [facility] 230 [place], [place] [phone] Depressive disorder Social History Tobacco Use Types [...] documented as of this encounter Care Teams Personal Property Assessor Relationship Specialty Start Date End Date Pat Juan FNP 230 [place] [address] PCP - General Family Medicine 05/04/22 documented as of this encounter
== END 2024-11-12 10:00 | disposition home or self-care (01) ==
PROVIDERS: PCP Registered Nurse; Visit Provider Hospitalist
DX: J45.40 Moderate persistent asthma, uncomplicated (principal); T78.40XA Allergy, unspecified, initial encounter; R91.8 Other nonspecific abnormal finding of lung field; R74.01 Elevation of levels of liver transaminase levels; J40 Bronchitis, not specified as acute or chronic
CPT/HCPCS: 99214

== ENCOUNTER → 2024-11-12 09:37 | Outpatient (BNVA) | payer MEDICARE, SELFPAY | PROVIDERS: PCP Registered Nurse; Visit Provider Hospitalist | DX: J40 Bronchitis, not specified as acute or chronic (principal); J45.40 Moderate persistent asthma, uncomplicated; R91.8 Other nonspecific abnormal finding of lung field; R74.01 Elevation of levels of liver transaminase levels; T78.40XA Allergy, unspecified, initial encounter; X58.XXXA Exposure to other specified factors, initial encounter; Y93.9 Activity, unspecified; Y92.9 Unspecified place or not applicable; Y99.9 Unspecified external cause status | CPT/HCPCS: 99212 ==

== ENCOUNTER 2024-11-17 09:07 | Outpatient (REF) | payer MEDICARE, SELFPAY ==
--- OUTSIDE RECORDS SUMMARY | 2024-11-17 09:44 | XMS_ITS | Encounter Summary ---
Author Organization [employer] Address 75 [facility] 7t [place] [address] Care Team Providers Care Supervisor Tumbling And Rolling Name Role Phone [facility] Primary Care Provider [phone] Encounter Details Date Type Department Care Team (Late st Contact Info) Description 10/30/2024 10:15 AM EST Telemedicine [facility] MEDICINE 230 [place], [place] [phone] Delmy Morales MD 230 [place], [place] [phone] COVID-19 (Primary Dx); Asthma, unspecified asthma severity, [...] of water. She has an appointment with Employment Office Clerk this month. She is not working currently. She lives with her and daughter. Acute Concerns: Social History Social History Narrative Current living environment: Lives with daughter, Ada Children: 3 children, 1 in [place], son in [place] Tobacco Use: None Alcohol Use: None Marijuana Use: None Other drug use: None Patient Active Problem List Diagnosis Asthma Cobalamin deficiency Depression, unspecified Dyslipidemia Primary hypertension Gastroesophageal reflux disease Hypothyroidism Osteoporosis Type 2 diabetes mellitus ([facility]) Healthcare maintenance Chronic idiopathic constipation Numbness and tingling in left hand Mild anxiety Meningioma ([facility]) Influenza-like symptoms Chronic nonintractable headache Cough in [...] Que 6 hours prn SOB/cough. FU with Employment Office Clerk. Relevant Medications budesonide-formoterol (Symbicort) 160-4.5 MCG/ACT inhaler [...] tablet by mouth at bedtime. glucose blood (2Nite2Nite.netTouch Ultra) test strip USE 1 STRIP by DIRECTED route every day levothyroxine (Synthroid) 75 MCG tablet Take 1 tablet (75 mcg) by mouth before breakfast. 30 [id number] lidocaine (Lidoderm) 5 % patch APPLY 1 [...] FOOD 90 tablet 3 Nebulizers (Compressor Nebulizer) [facility] Use as directed with Albuterol, DX: J45.40 [...] Que 6 hours prn SOB/cough. FU with Employment Office Clerk. documented in this encounter Plan of Treatment Not on file documented as of this encounter Visit Diagnoses Diagnosis COVID-19- Primary Asthma, unspecified asthma severity, unspecified whether complicated, unspecified whether persistent documented in this encounter Additional Health Concerns Assessment Noted Time PHQ-9 Depression Total Score: 0 03/19/20 24 8:51 AM EDT documented as of this encounter Care Teams Supervisor Tumbling And Rolling Relationship Specialty Start Date End Date Pat Juan FNP [address] [place] [phone] PCP - General Family Medicine 05/04/22 documented as of this encounter
--- OUTSIDE RECORDS SUMMARY | 2024-11-17 09:44 | XMS_ITS | Encounter Summary ---
Author Organization [employer] Address 75 [facility] 7t [place] [address] Care Team Providers Care Physician Representative Name Role Phone [facility] Primary Care Provider [phone] Reason for Visit * Reason Comments Med Refill Encounter Details Date Type Department Care Team ([facility] st Contact Info) Description 11/08/[address] [facility] MEDICINE 230 [place], [place] [phone] [facility] 230 [place], [place] [phone] Tingling of both feet Social History Tobacco [...] documented as of this encounter Care Teams Physician Representative Relationship Specialty Start Date End Date Pat Juan FNP [address] [place] [id number] PCP - General Family Medicine 05/04/22 documented as of this encounter
--- OUTSIDE RECORDS SUMMARY | 2024-11-17 09:44 | XMS_ITS | Encounter Summary ---
Author Organization [employer] Address 75 [facility] 7t [place] [address] Care Team Providers Care Converting Operator Name Role Phone [facility] Primary Care Provider [phone] Encounter Details Date Type Department Care Team [...] documented as of this encounter Care Teams Converting Operator Relationship Specialty Start Date End Date Pat Juan FNP [address] [place] [address] PCP - General Family Medicine 05/04/22 documented as of this encounter
--- OUTSIDE RECORDS SUMMARY | 2024-11-17 09:44 | XMS_ITS | Encounter Summary ---
Author Organization [employer] Address 75 [facility] 7t [place] [address] Care Team Providers Care Hand Fabric Cutter Name Role Phone [place] [facility]ANDSC[facility] SPECIALIST Primary Care Provider [phone] Reason for Visit * Reason Comments Med Refill Encounter Details Date Type Department Care Team ([facility] st Contact Info) Description 10/20/2024 Refill [facility] MEDICINE 230 [place], [place] [phone] Lori Werner MD 230 [place], [place] [phone] Seasonal allergies Social History Tobacco Use Types [...] documented as of this encounter Care Teams Hand Fabric Cutter Relationship Specialty Start Date End Date Pat Juan FNP [address] [place] [address] PCP - General Family Medicine 05/04/22 documented as of this encounter
--- OUTSIDE RECORDS SUMMARY | 2024-11-17 09:44 | XMS_ITS | Encounter Summary ---
Author Organization [employer] Address 75 [facility] 7t [place] [address] Care Team Providers Care Laborer Vineyard Name Role Phone [facility] Primary Care Provider [phone] Reason for Visit * Reason Comments Med Refill Encounter Details Date Type Department Care Team ([facility] st Contact Info) Description 11/17/2024 Refill [facility] MEDICINE 230 [place], [place] [phone] Cynthia Elizalde DO 230 [place], [place] [phone] Depressive disorder Social History Tobacco Use Types [...] documented as of this encounter Care Teams Laborer Vineyard Relationship Specialty Start Date End Date Pat Juan FNP 230 [place] [address] PCP - General Family Medicine 05/04/22 documented as of this encounter
--- OUTSIDE RECORDS SUMMARY | 2024-11-17 09:44 | XMS_ITS | Encounter Summary ---
Author Organization [employer] Address 75 [facility] 7t [place] [address] Care Team Providers Care Aircraft Sheet Metal Mechanic Name Role Phone [facility] Primary Care Provider [phone] Reason for Visit * Reason Comments Med Refill Encounter Details Date Type Department Care Team ([facility] st Contact Info) Description 10/15/2024 Refill [facility] MEDICINE 230 [place], [place] [phone] [facility] 230 [place], [place] [phone] Depressive disorder Social History Tobacco Use Types [...] documented as of this encounter Care Teams Aircraft Sheet Metal Mechanic Relationship Specialty Start Date End Date Pat Juan FNP 230 [place] [address] PCP - General Family Medicine 05/04/22 documented as of this encounter
--- OUTSIDE RECORDS SUMMARY | 2024-11-17 09:44 | XMS_ITS | Encounter Summary ---
Author Organization [employer] Address 75 [facility] 7t [place] [address] Care Team Providers Care Pulmonology Physician Name Role Phone [facility] Primary Care Provider [phone] Reason for Visit * Reason Comments Med Refill Encounter Details Date Type Department Care Team ([facility] st Contact Info) Description 12/06/2023 Refill [facility] MEDICINE 230 [place], [place] [phone] [facility] 230 [place], [place] [phone] Depressive disorder Social History Tobacco Use Types [...] documented as of this encounter Care Teams Pulmonology Physician Relationship Specialty Start Date End Date Pat Juan FNP [address] [place] [address] PCP - General Family Medicine 05/04/22 documented as of this encounter
--- OUTSIDE RECORDS SUMMARY | 2024-11-17 09:44 | XMS_ITS | Encounter Summary ---
Author Organization [employer] Address 75 [facility] 7t [place] [address] Care Team Providers Care Drivers License Examiner Name Role Phone [facility] Primary Care Provider [phone] Reason for Visit * Reason Onset Date Comments Nurse Triage 10/29/2024 Encounter Details Date Type Department Care Team ([facility] st Contact Info) Description 10/29/2024 Telephone [facility] MEDICINE 230 [place], [place] [phone] [facility] 230 [place], [place] [phone] Nurse Triage Social History Tobacco Use Types [...] RN - 10/29/2024 12:06 PM EST Per [facility] notes, pt seen on 10/27/24 for CP and SOB. Pt tested positive for COVID- 19. Pt given rx for prednisone 20 mg tablet PO DAILY 7 Days. Call returned to Hedy Davis via [employer] Fiscal Services Director as this commercial insurance underwriter is remote to triage below. No personalized living manager needed as this commercial insurance underwriter speaks Estonian. Reports continues to have similar sx. Pt [...] 10/30/2024 10:15 AM Delmy Morales MD MEDICINE [facility] Insurance verified as active per [employer] Eligibility in [facility]. Video visit offered and caller accepted Positive Triage Question: * Continuous (nonstop) coughing interferes with work or school and no improvement using cough treatment per Care Advice * All higher-acuity triage questions were negative Care Advice Discussed: * Reassurance and Education - Diagnosed With COVID-19 by Doctor (or CUSTOM HARVESTER/PA) and Mild Symptoms * Cough Medicines * Coughing Spells * Reasons To Call Back - Fever over 103 F (39.4 C) - Chest pain or difficulty breathing occurs - You become worse * Telephone Encounter - Olga Scott - 10/29/2024 11:35 AM EST Patient calling to report ED visit on : Date: 10/27 Hospital: [facility] Seen for: Asthma (Dx Covid-19) Symptomatic Yes Breathing Trouble *if yes message should go to Triage Patient advised will forward to team nurse for follow up [phone] (lithuanian) documented in this encounter Plan of Treatment Not on file documented as of this encounter Visit Diagnoses Not on filedocumented in this encounter Additional Health Concerns Assessment Noted Time PHQ-9 Depression Total Score: 0 03/19/20 24 8:51 AM EDT documented as of this encounter Care Teams Drivers License Examiner Relationship Specialty Start Date End Date Pat Juan FNP [address] [place] [id number] PCP - General Family Medicine 05/04/22 documented as of this encounter
--- OUTSIDE RECORDS SUMMARY | 2024-11-17 09:44 | XMS_ITS | Clinical Summary ---
Author Organization [facility] Address [address] [place] [address] Care Team Providers Care Appeals Officer Name Role Phone Unavailable Primary Care Provider [...] (2 - Td or Tdap) 07/04/2021 011 [id number] (2023- season) 2024 021, 12/15/2020 Imm-Influenza (#1) 2024 08/13/2019, 1 10/07/2016, 06/17/2015, Additional history exists Alcohol and Drug Screen 09/24/2024 Depression Annual Screen 09/24/2024 Imm-Pneumococcal 65+ Completed 08/07/2017, 09/02/2015, 09/26/2007 Insurance [facility] Member Subscriber Plan / Payer (Ef fective 2009-Present) Name:Hedy Davis Relation to Subscriber:Self Name:Hedy Davis Payer ID:[id number] Type:Indemnity Address: [facility] [id number] [place] [address] HEALTH SAFETY NET
--- OUTSIDE RECORDS SUMMARY | 2024-11-17 09:44 | XMS_ITS | Encounter Summary ---
Author Organization [employer] Address 75 [facility] 7t [place] [address] Care Team Providers Care Lottery Clerk Name Role Phone [facility] Primary Care Provider [phone] Reason for Visit * Reason Comments Med Refill Encounter Details Date Type Department Care Team ([facility] st Contact Info) Description 11/06/2022 Refill [facility] & PEDS [address] [place] [address] [place] [facility] 230 [place], [place] [phone] Depressive disorder Social History Tobacco Use Types [...] documented as of this encounter Care Teams Lottery Clerk Relationship Specialty Start Date End Date [facility] 230 [place] [address] PCP - General Family Medicine 05/04/22 documented as of this encounter
--- OUTSIDE RECORDS SUMMARY | 2024-11-17 09:44 | XMS_ITS | Encounter Summary ---
Author Organization [employer] Address 75 [facility] 7t [place] [address] Care Team Providers Care Supervisor Patching Name Role Phone [facility] Primary Care Provider [phone] Reason for Visit * Reason Comments Med Refill Encounter Details Date Type Department Care Team ([facility] st Contact Info) Description 10/27/2024 Refill [facility] MED[facility]INE 230 [place], [place] [phone] [facility] 230 [place], [place] [phone] Depression, major, in remission (CMS/HCC); Muscle spasm [...] as of this encounter Care Teams Supervisor Patching Relationship Specialty Start Date End Date Pat Juan FNP [address] [place] [phone] PCP - General Family Medicine 05/04/22 documented as of this encounter
--- OUTSIDE RECORDS SUMMARY | 2024-11-17 09:44 | XMS_ITS | Clinical Summary ---
Author Organization [employer] Address [address] [facility] [address] [place] [address] Care Team Providers Care Civil Design Technician Name Role Phone Pat Juan [facility] Primary Care Provider [phone] Allergies Active Allergy Reactions Criticality Noted Date Comments Morphine Rash Low 03/24/2011 Other reaction(s): Rash Medications * This document contains information received from the source organization and may not represent a complete record from that organization. ascorbic acid (Vitamin C) 500 mg chewable tablet takes 1 tablet once a day by endo Active glucose blood (uStudioTouch Ultra) test strip USE 1 STRIP by [...] AT BEDTIME 30 tablet 025 2024 Discontinued Active Problems Problem Noted Date Diagnosed Date [...] constipation 05/05/2023 Overview (05/05/2023): ?? Followed by [facility] GI ?? Linzess Numbness and tingling in [...] reflux disease 06/02/2013 Overview (10/10/2024): Followed by [facility] GI Negative EGD 2021 Pantoprazole Pt seen [...] intervention , Patient to reach out to [facility] team as needed, and Patient to engage [...] oxygen 2L PRN albuterol Followed by pulmonology [facility] Assessment & Plan (10/30/2024 10:58 AM EST): Mild exacerbation due to Covid infection. Increase Symbicort to Que 6 hours prn SOB/cough. FU with [facility]. Assessment & Plan (08/18/2024 11:43 AM EST): [...] support system PLAN: 1. Follow up with [facility]: Recommended for follow-up: 07/31 @ 10am 2. Patient goal is to continue controlling symptoms. 3. Behavioral Recommendations a. F/u in 2 weeks. b. Continue use of coping skills Hyperkalemia 02/20/2018 10/24/2022 Encounters Date Type Department Care Team Description 11/17/2024 Refill [facility] [address] [place] [address] Cynthia Elizalde DO Depressive disorder 10/30/2024 10:15 AM EST Telemedicine [facility] [address] [place] [place] [address] Delmy Morales MD COVID-19 (Primary Dx); Asthma, unspecified asthma severity, unspecified whether complicated, unspecified whether persistent 10/30/2024 Travel 10/29/2024 Telephone [facility] [address] [place] [address] Pat Juan FNP Nurse Triage 10/27/2024 Refill [facility] [address] [place] [address] Pat Juan FNP Depression, major, in remission ([facility]); Muscle spasm 10/27/2024 Orders Only [facility] External Provider, [facility] 10/21/2024 Refill [facility] [address] [place] [address] Pat Juan FNP Depressive disorder 10/20/2024 Refill [facility] [address] [place] [place] [address] Lori Werner MD Seasonal allergies 10/15/2024 Refill [facility] [address] [place] [address] Pat Juan FNP Depressive disorder 10/14/2024 Telephone [facility] [address] [place] [address] Pat Juan FNP Med Refill 10/10/2024 9:00 AM EST Telemedicine [facility] [place] [address] Pat Juan FNP Chronic nonintractable headache, unspecified headache type (Primary Dx); Cough in adult patient 10/10/2024 Travel 10/08/2024 Telephone [facility] [address] [place] [place] [address] Pat Juan FNP chart prep 10/07/2024 10:00 AM EST Office Visit [facility] [address] [place] [place] [address] Olivia Ramirez MD Cough in adult patient 10/07/2024 Telephone [facility] [address], [place] [address] Pat Juan FNP Med Refill 10/07/2024 Travel 09/29/2024 Refill [facility] [address] [place] [address] Pat Juan FNP Depression, major, in remission ([facility]) 09/16/2024 Refill [facility] [address], [place] [address] Pat Juan FNP Depressive disorder 09/15/2024 Orders Only [facility] [address] [place] [address] Pat Juan FNP 09/10/2024 Refill [facility] [address] [place] [address] Pat Juan FNP Asthma, unspecified asthma severity, unspecified whether complicated, unspecified whether persistent 09/03/2024 Orders Only [facility] [address] [place] [address] Pat Juan FNP 09/03/2024 Refill [facility] [address] [place] [address] Pat Juan FNP Depression, major, in remission ([facility]) 09/01/2024 Telephone [facility] [address] [place] [address] Pat Juan FNP ER Follow-up 08/29/2024 Orders Only GENERIC EXTERNAL DATA DEPARTMENT Provider, Generic External Data 08/28/2024 Refill [facility] [address] [place] [address] Pat Juan FNP Muscle spasm 08/25/2024 Refill [facility] [address] [place] [address] Pat Juan FNP Depressive disorder 08/18/2024 10:30 AM EST Office Visit [facility] [address] [place] [address] Pta Juan FNP Chronic nonintractable headache, unspecified headache type (Primary Dx); Type 2 diabetes mellitus without complication, without long-term current use of insulin ([facility]); Primary hypertension; Encounter for immunization; Moderate persistent asthma without complication 08/18/2024 Travel from Last 3 Months Immunizations Name Administration [...] - 1-dose 75+ series) 2023 COVID-19 Vaccine (2023- season) 2024 01/12/2021, 12/15/2020 Diabetes: Hemoglobin A1C 11/18/202408/18/ 024, 12/17/2023, 06/08/2023, Additional history exists SDOH [...] 08/07/2017, 09/02/2015, 09/26/2007 Zoster Vaccines Completed 07/24/2022, 0801/2022, 11/23/2014 Colonoscopy Discontinued 08/24/2022 Colorectal Cancer Screening [...] without long-term current use of insulin (CMS/HCC) HEPATITIS C AB W/REFL TO HCV RNA, QN, PCR Routine 01/31/2023 4:01 PM EDT Healthcare maintenance HM COLONOSCOPY Routine 08/24/2022 from Last 3 Months or Most Recently Relevant to Health Maintenance Results * Strep A Nucleic Acid (10/27/2024 3:38 PM EST) IDNOW SERIAL# [id number] [facility] Strep A Nucleic Acid Negative Negative [facility] Comment:All test results mus t [...] LAB MICROBIOLOGY - GENERAL ORDERABLES Final Result [facility] [address] [place] [phone] * High Sensitivity Troponin I (10/27/2024 3:38 PM EST) TROPONIN I HIGH SENSITIVITY 2.9 <3.5 - 17.0 ng/L [facility] Comment:The [facility] high sens itivity Troponin-I results should beused in conjunction with other diagnostic information suchas ECG, clinical observations and information, and patientsymptoms to aid in the diagnosis of [place]. 10/27/2024 3:38 PM EST 10/27/2024 3:45 PM EST us Generic External Data Provider LAB BLOOD ORDERAB LES Final Result [facility] [address] [place] [phone] * (ABNORMAL) SARS-CoV-2 RNA, Influenza A/B, and RSV RNA, Ql NAAT (10/27/2024 3:38 PM EST) Only the most recent of2 resultswithin the time period is included. Influenza A PCR NEGATIVE Negative [facility] Influenza B PCR NEGATIVE Negative [facility] Resp Syncy Virus RNA Qual PCR NEGATIVE Negative [facility] SARS COV2 PCR POSITIVE(A) Negative [facility] Comment:All test results mus t [...] use by authorized laboratories.Testing performed on the [facility] GeneXpert utilizingreal-time RT-PCR.All SARS CoV2 and positive influenza A/B results arereported to [facility]. 10/27/2024 3:38 PM EST 10/27/2024 3:45 PM EST us Generic External Data Provider LAB MICROBIOLOGY - GENERAL ORDERABLES Final Result [facility] [address] [place], [place] [phone] * (ABNORMAL) CBC auto differential (10/27/2024 3:38 PM EST) White Blood Count 5.4 4.8 - 10.8 X10*3/uL [facility] Red Blood Count 4.12(L) 4.20 - 5.50 X10*6/uL [facility] Hemoglobin 12.6 12.0 - 16.0 g/dl [facility] Hematocrit 39.0 37.0 - 47.0 % [facility] Mean Corpuscular Volume 94.7 80.0 - 98.0 fL [facility] Mean Corpuscular Hemoglobin 30.6 27.0 - 33.0 pg [facility] Mean Corpuscular HGB Conc 32.3 31.0 - 35.0 g/dl [facility] Red Cell Distribution Width 15.9 11.0 - 16.0 % [facility] Platelet Count 178 160 - 400 X10*3/uL [facility] Mean Platelet Volume 10.1 9.4 - 12.3 fL [facility] Neutrophils Percent Auto 58.8 45 - 73 % [facility] Imm Gran Pct Auto 0.2 0.0 - 0.4 % [facility] Lymphocytes Percent Auto 26.6 20 - 40 % [facility] Monocytes Percent Auto 13.5(H) 2 - 11 % [facility] Eosinophils Percent Auto 0.7 0 - 4 % [facility] Basophils Percent Auto 0.2 0 - 2 % [facility] NRBC Pct Auto 0.0 0.0 - 0.2 /100WBC [facility] Neutrophils Absolute Auto 3.2 2.0 - 8.3 x10*3/uL [facility] Imm Gran Abs Auto 0.01 0.00 - 0.03 X10*3/uL [facility] Lymphocytes Absolute Auto 1.4 1.2 - 4.9 X10*3/uL [facility] Monocytes Absolute Auto 0.7 0.1 - 1.2 X10*3/uL [facility] Eosinophils Absolute Auto 0.0 0.0 - 0.4 X10*3/uL [facility] Basophils Absolute Auto 0.0 0.0 - 0.2 X10*3/uL [facility] NRBC Abs Auto 0.000 0.0 - 0.012 X10*3/uL [facility] 10/27/2024 3:38 PM EST 10/27/2024 3:45 PM EST Generic External Data Provider LAB BLOOD ORDERAB LES Final Result Performing Organization Address [facility] de Phone Number [facility] [address] [place] [phone] * B Type Natriuretic Peptide (BNP) (10/27/2024 3:38 PM EST) Pathologist [facility] B Type Natriuretic Peptide 15 <100 pg/mL [facility] Comment:For those patients w ho are being treated with Natrecor(nesiritide, recombinant BNP), BNP testing should beperformed at least two hours post treatment in order toensure that only endogenous levels of BNP are detected. 10/27/2024 3:38 PM EST 10/27/2024 3:45 PM EST us Generic External Data Provider LAB BLOOD ORDERAB LES Final Result Performing Organization Address [facility] Co de Phone Number [facility] [address] [place] [phone] * Magnesium (10/27/2024 3:38 PM EST) Pathologist [facility] Magnesium 1.9 1.6 - 2.6 mg/dL [facility] 10/27/2024 3:38 PM EST 10/27/2024 3:45 PM EST Generic External Data Provider LAB BLOOD ORDERAB LES Final Result Performing Organization Address [facility]/ZIP Co de Phone Number [facility] [address] [place] [phone] * (ABNORMAL) Hepatic Function Panel (10/27/2024 3:38 PM EST) Pathologist [facility] Bilirubin, Total 0.5 0.0 - 1.0 mg/dL [facility] Bilirubin, Direct 0.2 0.0 - 0.5 mg/dL [facility] Aspartate Amino Transferase 49(H) 5 - 31 U/L [facility] Alanine Aminotransferase 41(H) 0 - 31 U/L [facility] Total Protein 7.5 6.5 - 8.0 g/dL [facility] Albumin Level 3.9 3.5 - 5.0 g/dL [facility] Alkaline Phosphatase 73 39 - 117 U/L [facility] 10/27/2024 3:38 PM EST 10/27/2024 3:45 PM EST Generic External Data Provider LAB BLOOD ORDERAB LES Final Result Performing Organization Address [facility] Co de Phone Number [facility] [address] [place] [phone] * (ABNORMAL) Basic Metabolic Panel (10/27/2024 3:38 PM EST) Pathologist [facility] Sodium 141 135 - 145 mmol/L [facility] Potassium 4.2 3.3 - 5.1 mmol/L [facility] Chloride 104 96 - 108 mmol/L [facility] Carbon Dioxide 25 22 - 29 mmol/L [facility] Anion Gap 16 12 - 20 [facility] Urea Nitrogen (BUN) 28(H) 9 - 16 mg/dL [facility] Creatinine, Serum 1.01 0.5 - 1.4 mg/dL [facility] Creatinine Clr Calc Pharmacy 41.9 [facility] Comment:Provided height and weight: 157.48 cm,65 kg.eGFR (calculated from the MDRD study equation) and eCrCl(calculated from the Cockcroft-Gault equation) are based ondifferent parameters and may not yield comparable results.If eCrCl result is absurd, please check patient'sheight/weight. Estimated Glomerular Filt Rate 53 [facility] Comment:Chronic Kidney Disea se: Estimated GFR < 60 mL/min/1.56b6Pjlghv Kidney Disease: Estimated GFR < 15 mL/min/1.73m2 Glucose 83 60 - 115 mg/dL [facility] Calcium 8.3(L) 8.4 - 10.2 mg/dL [facility] 10/27/2024 3:38 PM EST 10/27/2024 3:45 PM EST us Generic External Data Provider LAB BLOOD ORDERAB LES Final Result Performing Organization Address City/State/[facility] Co de Phone Number [facility] [address] [place] [phone] * XR Chest 2 Views (10/27/2024 1:38 PM EST) Anatomical Region Laterality Modality Chest Radiographic Nohemi ging 10/27/2024 1:38 PM EST Narrative 10/27/2024 2:21 PM EST ? [facility] ?[address] ?[place] [address] ?XRay Report ? Signed ? Patient: Davis,Hedy ?MR#: [id number] ?? 87 ? : 1950 ?Acct:[id number] ? Age/Sex: 74 / F ?ADM Date: 10/27/24 ? Loc: HO.ED ? Attending Dr: ? Ordering Physician: Vikki Christian ?? Date of Service: 10/27/24 ?? Procedure(s): XR chest 2V ?? Accession Number(s): [id number] ? cc: Vikki Christian; Pat Juan MECHANICAL DESIGN ENGINEER ? EXAMINATION: ??XR CHEST 2 VIEWS ? [...] DD/ 1338 ? TD/TT: 10/27/24 1413 ? Garage Manager: ? Procedure Note Rebecca, Image - 10/27/2024 [place] [address] XRay Report Signed Patient: Martín Davis#: [id number] [birth year] : 9Acct:[id number] Age/Sex: 74 / FADM Date: 10/27/24 Loc: HO.ED Attending Dr: Ordering Physician: Vikki Christian Date of Service: 10/27/24 Procedure(s): XR chest 2V Accession Number(s): [id number] cc: Vikki Christian; [facility] EXAMINATION: XR CHEST 2 VIEWS HISTORY: cough, [...] Pedro Luis Bill MD 10/27/2024 02:18 PM [facility] Dictated By: Pedro Luis Bill MD Signed By: <Electronically signed by Pedro Luis Bill MD in OV> 10/27/24 1418 DD/ 1338 TD/TT: 10/27/24 1413 Garage Manager: [facility] External Provider IMG XR PROCEDURES Final Result * Influenza B (ID NOW Rapid Molecular) (10/07/2024 10:26 AM EST) Influenza B Negative Negative, Indeterminate [facility] Swab 10/07/2024 10:2 6 AM EST Olivia Ramirez MD POINT OF CARE TEST ENTER/E DIT ORDERABLES Final Result Performing Organization Address [facility]/ZIP Co de Phone Number [facility] [address] [place] [address] [phone] * Influenza A (ID NOW Rapid Molecular) (10/07/2024 10:26 AM EST) Pathologist [facility] Influenza A Negative Negative, Indeterminate [facility] Swab 10/07/2024 10:2 6 AM EST Olivia Ramirez MD POINT OF CARE TEST ENTER/E DIT ORDERABLES Final Result Performing Organization Address [facility] Co de Phone Number [facility] [address] [place] [phone] * POCT Rapid COVID Ag (10/07/2024 10:11 AM EST) Pathologist [facility] Rapid COVID Ag Negative Swab 10/07/2024 10:1 1 AM EST Olivia Ramirez MD POINT OF CARE TEST ENTER/E DIT ORDERABLES Final Result * Albumin, Random Urine W/Creatinine (09/15/2024 9:23 AM EST) Pathologist [facility] Creatinine, Urine 65.58 mg/dL [facility] Microalbumin Urine <5.0 mg/L [facility] Microalbum Creatinine Ratio Ur TNP <30 ug/mg cr [facility] Comment:Unable to calculate albumin/creatinine ratio due to lowmicroalbumin or creatinine result. Urine 09/15/2024 9:23 AM EST 09/15/2024 10:51 AM EST [facility] MECHANICAL DESIGN ENGINEER LAB URINE ORDERABLES Final Re sult Performing Organization Address City/[facility]/ZIP Co de Phone Number [facility] [address] [place] [phone] * TSH (09/15/2024 9:18 AM EST) Thyroid Stimulating Hormone 0.41 0.32 - 4.0 uIU/mL [facility] Comment:TSH 3rd Generation ( [facility]) 09/15/2024 9:18 AM EST 09/15/2024 10:53 AM EST Generic External Data Provider LAB BLOOD ORDERAB LES Final Result Performing Organization Address [facility] Co de Phone Number [facility] [address] [place] [address] [phone] * T4, Free (09/15/2024 9:18 AM EST) Free T4 (Free Thyroxine) 1.05 0.71 - 1.85 ng/dL [facility] 09/15/2024 9:18 AM EST 09/15/2024 10:53 AM EST Generic External Data Provider LAB BLOOD ORDERAB LES Final Result Performing Organization Address [facility] Co de Phone Number [facility] [address] [place] [address] [phone] * Lipid Panel, Standard (09/15/2024 9:18 AM EST) Triglycerides 114 <150 mg/dL [facility] Comment:Desirable Triglyceri de: less than 150 mg/dLBorderline High Triglyceride 150-199 mg/dLHigh Triglyceride: 200-499 mg/dLVery High Triglyceride: greater than or equal to 5OO mg/dL Cholesterol 168 <200 mg/dL [facility] Comment:Desirable Cholestero l: less than 200 mg/dLBorderline High Cholesterol: 200-239 mg/dLHigh Cholesterol: greater than 239 mg/dL LDL Cholesterol Calculated 81 <100 mg/dL [facility] Comment:Desirable LDL: less than 100 mg/dLNear Optimal/Above Optimal LDL: 110- 129 mg/dLBorderline High LDL: 130-159 mg/dLHigh LDL: 160-189 mg/dLVery High LDL: greater than or equal to 190 mg/dL HDL Cholesterol 65 >40 mg/dL [facility] Comment:Desirable HDL: great er than 40 mg/dL Note: This HDL assay may give artificially low results in patients with liver disease. Blood Venous blood specimen / Unknown 09/15/2024 9:18 AM EST 09/15/2024 10:53 AM EST [facility] LAB BLOOD ORDERABLES Final Re sult Performing Organization Address [facility] Co de Phone Number [facility] [address] [place] [phone] * TSH with Reflex to Free T4 (09/15/2024 12:00 AM EST) TSH reflex Free T4 0.44 0.32 - 4.0 uIU/mL [facility] 09/15/2024 09/15/2024 [facility] LAB BLOOD ORDERABLES Final Re sult Performing Organization Address City/[facility] Co de Phone Number [facility] [address] [place] [address] [phone] * BI Mammogram Screening Tomosynthesis Bilateral (09/03/2024 1:15 PM EST) Anatomical Region Laterality Modality Breast Bilateral Mammography 09/03/2024 1:15 PM EST Narrative 09/09/2024 3:06 PM EST ? [facility] ? [address] ?[place] [address] ? Mammography Report ? Signed ? Patient: Davis,Hedy ?MR#: [id number] ?? 87 ? : 1950 ?Acct:[id number] ? Age/Sex: 73 / F ?ADM Date: 09/03/24 ? Loc: HO.MAMMO ? Attending Dr: Pat Juan MECHANICAL DESIGN ENGINEER ? Ordering Physician: Pat Juan MECHANICAL DESIGN ENGINEER ?Results: 1Nega ?? tive ? Date of Service: 09/03/24 ?Follow Up: 1 Year From Orig ?? inal Mammogram ? Procedure(s): MM tomosynthesis screening BI ?? Accession Number(s): [id number] ? cc: Pat Juan MECHANICAL DESIGN ENGINEER ? EXAMINATION: ?? MM SCREENING DIGITAL BREAST [...] ??Milagros Dhaliwal DO ??09/09/2024 03:03 PM EST ?? RP ? Dictated By: ?Milagros Dhaliwal DO ? Signed By: ?<Electronically signed by Milagros Dhaliwal, DO in OV> ? 09/09/24 1503 ? DD/ 1315 ? TD/TT: 09/03/24 1336 ? Garage Manager: ? Procedure Note Donaddi, Image - 09/09/2024 [facility] [address] [place] [address] Mammography Report Signed Patient: Hedy DavisMR#: [id number] 87 : 9Acct:[id number] Age/Sex: 73 / FADM Date: 09/03/24 Loc: APRIL Attending Dr: Pat Juan MECHANICAL DESIGN ENGINEER Ordering Physician: Pat Juan FNPResults: 1Nega tive Date of Service: 09/03/24Follow Up: 1 Year From Orig inal Mammogram Procedure(s): MM tomosynthesis screening BI Accession Number(s): [id number] cc: Pat Juan MECHANICAL DESIGN ENGINEER EXAMINATION: MM SCREENING DIGITAL BREAST TOMOSYNTHESIS, BILATERAL [...] 09/09/24 1503 DD/ 1315 TD/TT: 09/03/24 1336 Garage Manager: [facility] MECHANICAL DESIGN ENGINEER IMG BI PROCEDURES Final Resul t * XR Chest 1 View (08/29/2024 2:32 PM EST) Anatomical Region Laterality Modality Chest Radiographic Nohemi ging 08/29/2024 2:32 PM EST Narrative 08/29/2024 4:09 PM EST ? [facility] ?[address] ?[place] [address] ?XRay Report ? Signed ? Patient: Hedy Davis ?MR#: [id number] ?? 87 ? : 1950 ?Acct:[id number] ? Age/Sex: 73 / F ?ADM Date: 08/29/24 ? Loc: HO.ED ? Attending Dr: ? Ordering Physician: Shawn Patel ?? Date of Service: 08/29/24 ?? Procedure(s): XR chest 1V ?? Accession Number(s): [id number] ? cc: Shawn Patel; Pat Juan MECHANICAL DESIGN ENGINEER ? EXAMINATION: ?? XR CHEST ? CLINICAL [...] ??Rocio Orr MD ??08/29/2024 04:06 PM EST ?? RP ? Dictated By: ?Rocio Orr MD ? Signed By: ?<Electronically signed by Rocio Orr MD in OV> ? 08/29/24 1606 ? DD/ 1432 ? TD/TT: 08/29/24 1437 ? Garage Manager: PN ? Procedure Note Donotelliinterpreter, Image - 08/29/[address] [address] XRay Report Signed Patient: Martín Davis#: [id number] [birth year] : 9Acct:[id number] Age/Sex: 73 / FADM Date: 08/29/24 Loc: .ED Attending Dr: Ordering Physician: Shawn Patel Date of Service: 08/29/24 Procedure(s): XR chest 1V Accession Number(s): [id number] cc: Shawn Patel; [facility] MECHANICAL DESIGN ENGINEER EXAMINATION: XR CHEST CLINICAL INFORMATION: sob COMPARISON: [...] 08/29/24 1606 DD/ 1432 TD/TT: 08/29/24 1437 Garage Manager: PN us [facility] External Provider IMG XR PROCEDURES Final Result * POCT HGB A1C (08/18/2024 10:24 AM EST) Hemoglobin A1C 5.6 4.0 - 6.0 % QC Media Lot # [id number] Lot# Expiration Date , Blood 08/18/2024 10:2 4 AM EST [facility] POINT OF CARE TEST ENTER/EDIT ORDERABLES Final Result * POCT Glucose (08/18/2024 10:24 AM EST) Pathologist [facility] Glucose Blood, POC 101 60 - 200 mg/dL [employer] Lot # [id number] Lot# Expiration Date Blood Capillary blood specimen / Unknown 08/18/2024 10:24 AM EST [facility] POINT OF CARE TEST ENTER/EDIT ORDERABLES Final Result * Hepatitis C Antibody with Reflex to HCV, RNA, Quantitative, Real-Time PCR (01/31/2023 4:01 PM EDT) [facility] Hepatitis C Antibody NON-REACT HERRERA NON-REACT HERRERA [facility] Index 0.09 <1.00 [facility] Comment: HCV antibody was non-reactive. There is no laboratory evidence of HCV infection. In most cases, no further action is required. However, if recent HCV exposure is suspected, a test for HCV RNA (test code 95773) is suggested. For additional information please refer to [email or web address]/[email or web address] (This link is being provided for informational/ educational purposes only.) Blood Venous blood specimen / Unknown 01/31/2023 4:01 PM EDT 01/31/2023 4:01 PM EDT [facility] LAB BLOOD ORDERABLES Final Re sult [employer] [address], [place] [address] [facility] [employer] 200 [place] [address] * Hm Colonoscopy (08/24/2022) [facility] Colonoscopy Normal Normal Comment:[facility] - negative 08/24/2022 us Historical Provider HEALTH MAINTENANCE Final Result from Last 3 Months or Most Recently Relevant to Health Maintenance Insurance AETNA MEDICARE REPLACEMENT [facility] Care Teams Civil Design Technician Relationship Specialty Start Date End Date Pat Juan FNP [address] [place] [phone] PCP - General Family Medicine 05/04/22
--- OUTSIDE RECORDS SUMMARY | 2024-11-17 09:44 | XMS_ITS | Encounter Summary ---
Author Organization [employer] Address 75 [facility] 7t [place] [address] Care Team Providers Care Senior Master Scheduler Name Role Phone [facility] Primary Care Provider [phone] Reason for Visit * Reason Onset Date Comments Medication Question 10/21/2024 Encounter Details Date Type Department Care Team ([facility] st Contact Info) Description 10/21/2024 Refill [facility] MEDICINE 230 [place], [place] [phone] [facility] 230 [place], [place] [phone] Depressive disorder Social History Tobacco Use Types [...] 2:10 PM EST TC placed to patient [phone] via [employer] (Kamron #[id number]). Per anup, patient p/u ambien on 09/29/24 for a 28 day supply, medication is not due until 10/27/24. Patient reports she had the medication delivered to her on 09/19/25. RN placed patient on hold and called pharmacy [phone] [facility] on delivery date. Pharmacy reports the [...] If any questions please contact pt at [phone]. (Russian Speaker) documented in this encounter Plan of Treatment Not on file documented as of this encounter Visit Diagnoses Diagnosis Depressive disorder Depressive disorder, not elsewhere classified documented in this encounter Additional Health Concerns Assessment Noted Time PHQ-9 Depression Total Score: 0 03/19/20 24 8:51 AM EDT documented as of this encounter Care Teams Senior Master Scheduler Relationship Specialty Start Date End Date Pat Juan FNP [address] [place] [address] PCP - General Family Medicine 05/04/22 documented as of this encounter
--- OUTSIDE RECORDS SUMMARY | 2024-11-17 09:44 | XMS_ITS | Encounter Summary ---
Author Organization [employer] Address 75 [facility] 7t [place] [address] Care Team Providers Care Plant Maintenance Worker Name Role Phone [facility] Primary Care Provider [phone] Encounter Details Date Type Department Care Team (Late st Contact Info) Description 10/27/2024 Orders Only [facility] External Provider, [facility] Social History Tobacco Use Types Packs/Day [...] t he electric, gas, oil or water [employer] threatened to shut off services in your [...] PM EST) Influenza A PCR NEGATIVE Negative [facility] Influenza B PCR NEGATIVE Negative [facility] Resp Syncy Virus RNA Qual PCR NEGATIVE Negative [facility] SARS COV2 PCR POSITIVE(A) Negative [facility] Comment:All test results mus t [...] use by authorized laboratories.Testing performed on the [employer] GeneXpert utilizingreal-time RT-PCR.All SARS CoV2 and positive influenza A/B results arereported to [facility]. 10/27/2024 3:38 PM EST 10/27/2024 3:45 PM EST [employer] External Data Provider LAB MICROBIOLOGY - GENERAL ORDERABLES Final Result Performing Organization Address [facility] Co de Phone Number [facility] [address] [place] [phone] * High Sensitivity Troponin I (10/27/2024 3:38 PM EST) [facility] TROPONIN I HIGH SENSITIVITY 2.9 <3.5 - 17.0 ng/L [facility] Comment:The [place] high sens itivity Troponin-I results should beused in conjunction with other diagnostic information suchas ECG, clinical observations and information, and patientsymptoms to aid in the diagnosis of [place]. 10/27/2024 3:38 PM EST 10/27/2024 3:45 PM EST [employer] External Data Provider LAB BLOOD ORDERAB LES Final Result Performing Organization Address [facility] Co de Phone Number [facility] [address] [place] [phone] * B Type Natriuretic Peptide (BNP) (10/27/2024 3:38 PM EST) [facility] B Type Natriuretic Peptide 15 <100 pg/mL [facility] Comment:For those patients w ho are being treated with Natrecor(nesiritide, recombinant BNP), BNP testing should beperformed at least two hours post treatment in order toensure that only endogenous levels of BNP are detected. 10/27/2024 3:38 PM EST 10/27/2024 3:45 PM EST Generic External Data Provider LAB BLOOD ORDERAB LES Final Result Performing Organization Address [facility] Co de Phone Number [facility] [address] [place] [phone] * Magnesium (10/27/2024 3:38 PM EST) Pathologist [facility] Magnesium 1.9 1.6 - 2.6 mg/dL [facility] 10/27/2024 3:38 PM EST 10/27/2024 3:45 PM EST Generic External Data Provider LAB BLOOD ORDERAB LES Final Result Performing Organization Address [facility] de Phone Number [facility] [address] [place] [phone] * (ABNORMAL) Basic Metabolic Panel (10/27/2024 3:38 PM EST) Pathologist [facility] Sodium 141 135 - 145 mmol/L [facility] Potassium 4.2 3.3 - 5.1 mmol/L [facility] Chloride 104 96 - 108 mmol/L [facility] Carbon Dioxide 25 22 - 29 mmol/L [facility] Anion Gap 16 12 - 20 [facility] Urea Nitrogen (BUN) 28(H) 9 - 16 mg/dL [facility] Creatinine, Serum 1.01 0.5 - 1.4 mg/dL [facility] Creatinine Clr Calc Pharmacy 41.9 [facility] Comment:Provided height and weight: 157.48 cm,65 kg.eGFR (calculated from the MDRD study equation) and eCrCl(calculated from the Cockcroft-Gault equation) are based ondifferent parameters and may not yield comparable results.If eCrCl result is absurd, please check patient'sheight/weight. Estimated Glomerular Filt Rate 53 [facility] Comment:Chronic Kidney Disea se: Estimated GFR < 60 mL/min/1.75r6Aifnti Kidney Disease: Estimated GFR < 15 mL/min/1.73m2 Glucose 83 60 - 115 mg/dL [facility] Calcium 8.3(L) 8.4 - 10.2 mg/dL [facility] 10/27/2024 3:38 PM EST 10/27/2024 3:45 PM EST Generic External Data Provider LAB BLOOD ORDERAB LES Final Result Performing Organization Address [facility] Co wa Phone Number [facility] [address] [place] [phone] * (ABNORMAL) Hepatic Function Panel (10/27/2024 3:38 PM EST) [facility] Bilirubin, Total 0.5 0.0 - 1.0 mg/dL [facility] Bilirubin, Direct 0.2 0.0 - 0.5 mg/dL [facility] Aspartate Amino Transferase 49(H) 5 - 31 U/L [facility] Alanine Aminotransferase 41(H) 0 - 31 U/L [facility] Total Protein 7.5 6.5 - 8.0 g/dL [facility] Albumin Level 3.9 3.5 - 5.0 g/dL [facility] Alkaline Phosphatase 73 39 - 117 U/L [facility] 10/27/2024 3:38 PM EST 10/27/2024 3:45 PM EST Generic External Data Provider LAB BLOOD ORDERAB LES Final Result Performing Organization Address [facility] de Phone Number [facility] [address] [place] [phone] * Strep A Nucleic Acid (10/27/2024 3:38 PM EST) [employer] SERIAL# [id number] [facility] Strep A Nucleic Acid Negative Negative [facility] Comment:All test results mus t be [...] LAB MICROBIOLOGY - GENERAL ORDERABLES Final Result [facility] [address] [place] [address] [phone] * (ABNORMAL) CBC auto differential (10/27/2024 3:38 PM EST) Pathologist Esteban White Blood Count 5.4 4.8 - 10.8 X10*3/uL [facility] Red Blood Count 4.12(L) 4.20 - 5.50 X10*6/uL [facility] Hemoglobin 12.6 12.0 - 16.0 g/dl [facility] Hematocrit 39.0 37.0 - 47.0 % [facility] Mean Corpuscular Volume 94.7 80.0 - 98.0 fL [facility] Mean Corpuscular Hemoglobin 30.6 27.0 - 33.0 pg [facility] Mean Corpuscular HGB Conc 32.3 31.0 - 35.0 g/dl [facility] Red Cell Distribution Width 15.9 11.0 - 16.0 % [facility] Platelet Count 178 160 - 400 X10*3/uL [facility] Mean Platelet Volume 10.1 9.4 - 12.3 fL [facility] Neutrophils Percent Auto 58.8 45 - 73 % [facility] Imm Gran Pct Auto 0.2 0.0 - 0.4 % [facility] Lymphocytes Percent Auto 26.6 20 - 40 % [facility] Monocytes Percent Auto 13.5(H) 2 - 11 % [facility] Eosinophils Percent Auto 0.7 0 - 4 % [facility] Basophils Percent Auto 0.2 0 - 2 % [facility] NRBC Pct Auto 0.0 0.0 - 0.2 /100WBC [facility] Neutrophils Absolute Auto 3.2 2.0 - 8.3 x10*3/uL [facility] Imm Gran Abs Auto 0.01 0.00 - 0.03 X10*3/uL [facility] Lymphocytes Absolute Auto 1.4 1.2 - 4.9 X10*3/uL [facility] Monocytes Absolute Auto 0.7 0.1 - 1.2 X10*3/uL [facility] Eosinophils Absolute Auto 0.0 0.0 - 0.4 X10*3/uL [facility] Basophils Absolute Auto 0.0 0.0 - 0.2 X10*3/uL [facility] NRBC Abs Auto 0.000 0.0 - 0.012 X10*3/uL [facility] 10/27/2024 3:38 PM EST 10/27/2024 3:45 PM EST us Generic External Data Provider LAB BLOOD ORDERAB LES Final Result Performing Organization Address [facility] Co de Phone Number [facility] [address] [place] [phone] * XR Chest 2 Views (10/27/2024 1:38 PM EST) Anatomical Region Laterality Modality Chest Radiographic Nohemi ging 10/27/2024 1:38 PM EST Narrative 10/27/2024 2:21 PM EST ? [facility] ?[address] ?[place] [address] ?XRay Report ? Signed ? Patient: Davis,Hedy ?MR#: [id number] ?? 87 ? : 1950 ?Acct:[id number] ? Age/Sex: 74 / F ?ADM Date: 02/03/25 ? Loc: HO.ED ? Attending Dr: ? Ordering Physician: Vikki Christian ?? Date of Service: 10/27/24 ?? Procedure(s): XR chest 2V ?? Accession Number(s): [id number] ? cc: Vikki Christian; Pat Juan EXTRUSION PRESS SUPERVISOR ? EXAMINATION: ??XR CHEST 2 VIEWS ? [...] DD/ 1338 ? TD/TT: 10/27/24 1413 ? Ad Copy Writer: ? Procedure Note Isidoro Fernandez - 10/27/2024 [place] [address] XRay Report Signed Patient: Martín Davis#: [id number] 89 : 9Acct:[id number] Age/Sex: 74 / FADM Date: 10/27/24 Loc: HO.ED Attending Dr: Ordering Physician: Vikki Christian Date of Service: 10/27/24 Procedure(s): XR chest 2V Accession Number(s): [id number] cc: Vikki Christian; Pat Juan [facility] EXAMINATION: XR CHEST 2 VIEWS HISTORY: cough, [...] 10/27/24 1418 DD/ 1338 TD/TT: 10/27/24 1413 Ad Copy Writer: [facility] External Provider IMG XR PROCEDURES Final Result documented in this encounter Visit Diagnoses Not on filedocumented in this encounter Additional Health Concerns Assessment Noted Time PHQ-9 Depression Total Score: 0 03/19/20 24 8:51 AM EDT documented as of this encounter Care Teams Plant Maintenance Worker Relationship Specialty Start Date End Date Pat Juan FNP [address] [place] [phone] PCP - General Family Medicine 05/04/22 documented as of this encounter
--- OUTSIDE RECORDS SUMMARY | 2024-11-17 09:45 | XMS_ITS | Encounter Summary ---
Author Organization [employer] Address 75 [facility] 7t [place] [address] Care Team Providers Care Post Adoption Coordinator Name Role Phone [facility] Primary Care Provider [phone] Reason for Visit * Reason Comments Med Refill Encounter Details Date Type Department Care Team ([facility] st Contact Info) Description 04/14/[address] [facility] MEDICINE 230 [place], [place] [phone] [facility] 230 [place], [place] [phone] Depressive disorder Social History Tobacco Use Types [...] Date End Date Pat Juan FNP 230 [place] [address] PCP - General Family Medicine 05/04/22 documented as of this encounter
--- OUTSIDE RECORDS SUMMARY | 2024-11-17 09:45 | XMS_ITS | Clinical Summary ---
Author Organization [address] [facility] Address 175 [place] [address] Phone Care Team Providers Care Lime Hide Inspector Name Role Phone [facility] Primary Care Provider [phone] Allergies Active Allergy Reactions Criticality Noted Date [...] 72 mcg capsule Take by mouth. Act mlivia mirtazapine (REMERON) 30 mg tablet Take 1 [...] headaches which were treated with Fioricet in [place] but she has been unable to obtain it here. I will try again to order it for her from the [facility] pharmacy. Immunizations Name Administration Dates Next Due [...] HISTORICAL LITHOTRIPSY OTHER SURGICAL HISTORY 07/31/2023 PROCEDURE: CO CRNEC TREPHINE BONE FLAP MENINGIOMA SUPRATENTOR; COMMENT: [...] topic Insurance AETNA MEDICARE ADVANTAGE Care Teams Lime Hide Inspector Relationship Specialty Start Date End Date [facility] [address] [phone] PCP - General Family Medicine 07/28/24
--- OUTSIDE RECORDS SUMMARY | 2024-11-17 09:45 | XMS_ITS | Encounter Summary ---
Author Organization [employer] Address 75 [facility] 7t [place] [address] Care Team Providers Care Television Installer Name Role Phone [facility] Primary Care Provider [phone] Reason for Visit * Reason Onset Date Comments Med Refill 01/21/2024 Encounter Details Date Type Department Care Team ([facility] st Contact Info) Description 01/21/2024 Telephone [facility] MEDICINE 230 [place], [place] [phone] [facility] 230 [place], [place] [phone] Med Refill Social History Tobacco Use Types [...] 11:57 AM EDT Medication was sent to [facility] on 11/26/23 #30 with 2 refills * Telephone Encounter - Eliana Varela - 01/21/2024 11:01 AM EDT TC from pt requesting medication refill. Medications needing refill : mirtazapine (Remeron SolTab) 45 MG disintegrating tablet To be sent to: [facility] at [place], [place] - [address] [place] [address] documented in this encounter Plan of Treatment Not on file documented as of this encounter Visit Diagnoses Not on filedocumented in this encounter Additional Health Concerns Assessment Noted Time PHQ-9 Depression Total Score: 7 01/04/20 24 8:14 AM EDT documented as of this encounter Care Teams Television Installer Relationship Specialty Start Date End Date Pat Juan FNP [address] [place] [address] PCP - General Family Medicine 05/04/22 documented as of this encounter
--- OUTSIDE RECORDS SUMMARY | 2024-11-17 09:45 | XMS_ITS | Encounter Summary ---
Author Organization [employer] Address 75 [facility] 7t [place] [address] Care Team Providers Care Crack Off Person Name Role Phone [place] HADOOP DEVELOPER Primary Care Provider Encounter Details Date Type Department Care Team (Late st Contact Info) Description 08/09/2023 Abstract [facility] MEDICINE 230 [place], [place] [phone] Rhina Diez Social History Tobacco Use Types [...] documented as of this encounter Care Teams Crack Off Person Relationship Specialty Start Date End Date Pat Juan FNP [address] [place] [address] PCP - General Family Medicine 05/04/22 documented as of this encounter
--- OUTSIDE RECORDS SUMMARY | 2024-11-17 09:45 | XMS_ITS | Encounter Summary ---
Author Organization [employer] Address 75 [facility] 7t [place] [address] Care Team Providers Care Hospital Carrier Name Role Phone [facility] Primary Care Provider [phone] Reason for Visit * Reason Comments Med Refill Encounter Details Date Type Department Care Team ([facility] st Contact Info) Description 01/02/2024 Refill [facility] MEDICINE 230 [place], [place] [phone] [facility] 230 [place], [place] [phone] Tingling of both feet; Depressive disorder Social [...] documented as of this encounter Care Teams Hospital Carrier Relationship Specialty Start Date End Date Pat Juan FNP [address] [place] [address] PCP - General Family Medicine 05/04/22 documented as of this encounter
--- OUTSIDE RECORDS SUMMARY | 2024-11-17 09:45 | XMS_ITS | Encounter Summary ---
Author Organization [employer] Address 75 [facility] 7t [place] [address] Care Team Providers Care Special Services Coordinator Name Role Phone [place] CONSTRUCTION RECRUITER Primary Care Provider [phone] Reason for Visit * Reason Comments Med Refill Encounter Details Date Type Department Care Team (Late st Contact Info) Description 10/24/2023 Refill [facility] MEDICINE 230 [place], [place] [phone] Tracee Coulter ANP 230 [place], [place] [phone] Depressive disorder Social History Tobacco Use Types [...] documented as of this encounter Care Teams Special Services Coordinator Relationship Specialty Start Date End Date Pat Juan FNP [address] [place] [address] PCP - General Family Medicine 05/04/22 documented as of this encounter
--- OUTSIDE RECORDS SUMMARY | 2024-11-17 09:45 | XMS_ITS | Encounter Summary ---
Author Organization [employer] Address 75 [facility] 7t [place] [address] Care Team Providers Care Dice Spotter Name Role Phone [place] DIAMOND SETTER APPRENTICE Primary Care Provider [phone] Encounter Details Date Type Department Care Team ([facility] st Contact Info) Description 04/17/2024 Orders Only [facility] MEDICINE 230 [place], [place] [phone] Lori Werner MD 230 [place], [place] [phone] Social History Tobacco Use Types Packs/Day Years [...] documented as of this encounter Care Teams Dice Spotter Relationship Specialty Start Date End Date Pat Juan FNP [address] [place] [address] PCP - General Family Medicine 05/04/22 documented as of this encounter
--- OUTSIDE RECORDS SUMMARY | 2024-11-17 09:45 | XMS_ITS | Encounter Summary ---
Author Organization [employer] Address 75 [facility] 7t [place] [address] Care Team Providers Care R D Engineer Name Role Phone [facility] Primary Care Provider [phone] Reason for Visit * Reason Onset Date Comments Med Refill 02/29/2024 Encounter Details Date Type Department Care Team ([facility] st Contact Info) Description 02/29/2024 Telephone [facility] MEDICINE 230 [place], [place] [phone] [facility] 230 [place], [place] [phone] Med Refill Social History Tobacco Use Types [...] 10 MG tablet To be sent to: [facility] at [place], [place] - [address] [facility] documented in this encounter Plan of Treatment Not on file documented as of this encounter Visit Diagnoses Not on filedocumented in this encounter Additional Health Concerns Assessment Noted Time PHQ-9 Depression Total Score: 7 01/04/20 24 8:14 AM EDT documented as of this encounter Care Teams R D Engineer Relationship Specialty Start Date End Date Pat Juan FNP [address] [place] [phone] PCP - General Family Medicine 05/04/22 documented as of this encounter
--- OUTSIDE RECORDS SUMMARY | 2024-11-17 09:45 | XMS_ITS | Encounter Summary ---
Author Organization [employer] Address 75 [facility] 7t [place] [address] Care Team Providers Care Two Way Radio Technician Name Role Phone [facility] Primary Care Provider [phone] Reason for Visit * Reason Comments Med Refill Encounter Details Date Type Department Care Team ([facility] st Contact Info) Description 02/21/2024 Refill [facility] MEDICINE 230 [place], [place] [phone] [facility] 230 [place], [place] [phone] Depressive disorder Social History Tobacco Use Types [...] documented as of this encounter Care Teams Two Way Radio Technician Relationship Specialty Start Date End Date Pat Juan FNP [address] [place] [phone] PCP - General Family Medicine 05/04/22 documented as of this encounter
[2024-11-17 11:40] LABS: Alanine Aminotransferase 28 U/L (0-31); Albumin Level 3.9 g/dL (3.5-5.0); Alkaline Phosphatase 66 U/L (39-117); Anion Gap 13 (12-20); Aspartate Amino Transferase 27 U/L (5-31); Bilirubin Direct 0.2 mg/dL (0.0-0.5); Bilirubin Total 0.6 mg/dL (0.0-1.0); Blood Urea Nitrogen 16 mg/dL (9-16); Carbon Dioxide 29 mmol/L (22-29); Chloride 109 mmol/L (96-108); Estimated Glomerular Filt Rate > 60; Glucose Random 88 mg/dL (60-115); Lipase 44 U/L (8-78); Potassium 4.8 mmol/L (3.3-5.1); Sodium 146 mmol/L (135-145); Total Protein 7.2 g/dL (6.5-8.0)
== END 2024-11-17 09:08 | disposition home or self-care (01) ==
LOC: HO.LAB 09:07
PROVIDERS: PCP Registered Nurse; Visit Provider Hospitalist
DX: R74.01 Elevation of levels of liver transaminase levels (principal)
CPT/HCPCS: 36415; 80048; 80076; 83690

== ENCOUNTER 2024-12-12 08:54 | Outpatient (AMB) | payer MEDICARE, SELFPAY ==
--- NOTE | 2024-12-12 08:59 | A.OFFVIS_ITS ---
Vital Signs 12/12/24 09:01 Height 4 ft 11 in Weight 146 lb 6.191 oz BMI 29.6 BP 152/90 H Blood Pressure Location Rt brachial Position Sitting Pulse 62 Pulse Source Pulse Oximeter Pulse Oximetry (%) 95 Oxygen Delivery Method Room Air Intake Visit Reasons: 6 months f/u Intake Note: ESTABLISHED PATIENT for GERD + Constipation mgmt. Chief Complaint; Pt reports that her sx are well managed currently. No concerns. Director Of Restaurant Required: Yes Director Of Restaurant Services: Director Of Restaurant Present Director Of Restaurant Name: Thee [id number] Information Interpreted: clinical only Accompanied by: Self / Same As Patient Allergies morphine [MORPHINE] Allergy (Unknown, Verified 12/12/24 08:59) RASH HPI HPI 6 months f/u: Details: LAST VISIT: GERD (gastroesophageal reflux disease) Chronic idiopathic constipation Plan Continue pantoprazole in the morning and famotidine at bedtime. Avoid dietary triggers and late night snacking. Staying upright for minimum 3 hours after meals discussed with patient. Continue Linzess. Increase fluid intake and activity to promote better bowel motility. Follow-up in the office in 6 months, sooner on as needed basis. Patient is agreeable to this plan and verbalizes understanding of instructions. She was given the opportunity to ask questions and all questions answered. TODAY'S VISIT: Patient is here today for follow-up. Patient reports that she has been feeling well since last visit. Takes pantoprazole in the morning and famotidine and bedtime. Her symptoms of acid reflux for suppressed with patient also changed her diet reports to be feeling well. Uses Linzess when we get to help with bowel movements. Patient reports that she is using every day. Patient denies melena, hematochezia, unintentional weight loss or ribbon like stools. Patient denies any dyspepsia, dysphagia or odynophagia [facility] Medical History Transaminitis Pulmonary nodules Allergies Kidney stone Back pain Arthritis HLD (hyperlipidemia) Hypothyroidism Diabetes Hypertension Asthma Hyperthyroidism Vitamin D deficiency Primary hyperparathyroidism Postablative hypothyroidism Surgical History History of craniotomy Hx of colonoscopy History of esophagogastroduodenoscopy (EGD) Hx of endoscopy S/P subtotal parathyroidectomy History of carpal tunnel release of both wrists Hx of cataract removal with insertion of prosthetic lens Hx of lithotripsy Hx of cholecystectomy Hx of hysterectomy Family History Father No problems noted. Mother No problems noted. Social History Household Members: Family Are you a primary care management coordinator to a significant other at home: No Do you presently have visiting nurse or other home services: No Alcohol intake: never Patient Tobacco Use Status: Never used Tobacco Review of Systems Const Denies weight gain and Denies weight loss ENT Reports no additional complaints, Denies dysphagia and Denies odynophagia Card Reports no additional complaints Resp Reports no additional complaints GI Denies abdominal pain, Denies belching, Denies melena, Denies bloating, Denies change in bowel habits, Denies dysphagia, Denies excessive flatus, Denies dyspepsia, Denies heartburn, Denies diarrhea, Denies loose stools, Denies nausea, Denies odynophagia and Denies vomiting Musc Reports no additional complaints Neuro Reports no additional complaints Psych Reports no additional complaints Endo Reports no additional complaints Physical Exam Vital Signs: Last Vital Signs Pulse 62 12/12/24 09:01 BP 152/90 H 12/12/24 09:01 Pulse Ox 95 12/12/24 09:01 Oxygen Delivery Method Room Air 12/12/24 09:01 BMI result Body Mass Index 29.6 Const General: healthy appearing, no acute distress and well developed Nutritional Appearance: well nourished Orientation/consciousness: patient oriented x3 Resp Effort & Inspection: normal respiratory effort, able to speak in complete sentences, no tracheal deviation and symmetric chest movement Auscultation: clear to auscultation bilaterally Cardio Rate: regular rate GI Inspection: Yes normal to inspection and No distended Palpation (GI): Soft to palpation, not firm, nontender and No hepatosplenomegaly present Auscultation: normal bowel sounds General: Yes no CVA tenderness Back/Spine/Pelvis Back: no CVA tenderness Skin General skin exam: elasticity normal, turgor normal and dry skin Neuro General: patient oriented x3 Psych Appearance: grossly normal Mental Status: mental status grossly normal Assessment & Plan Assessment & Plan (1) GERD (gastroesophageal reflux disease): Code(s): K21.9 - Gastro-esophageal reflux disease without esophagitis Qualifiers: Esophagitis presence: esophagitis presence not specified Qualified Code(s): K21.9 - Gastro-esophageal reflux disease without esophagitis (2) Chronic idiopathic constipation: Code(s): K59.04 - Chronic idiopathic constipation Plan Continue pantoprazole in the morning and famotidine at bedtime. Avoid dietary triggers and late night snacking. Staying upright for minimal 3 hours after meals discussed with patient. Continue Linzess. Increase fluid intake and activity to promote better bowel motility. Patient will follow-up in 6 months, sooner on as needed basis. She is agreeable to this plan and verbalizes understanding of instructions. She was given the opportunity to ask questions and all questions answered. Thank you for allowing me to participate in her care Coding Level of Care Code Est Pt Level 3 (55663) Diagnoses Gastroesophageal reflux disease, unspecified whether esophagitis present K21.9 Esophagitis presence: esophagitis presence not specified Chronic idiopathic constipation K59.04 Time Spent (min) 25 Comment 15 minutes spent with patient and additional 10 minutes spent reviewing her records
[2024-12-12 09:01] VITALS: BP 152/90; PULSE 62; O2SAT 95; BMI 29.6
== END 2024-12-12 09:42 | disposition home or self-care (01) ==
LOC: HO.HGI 08:54
PROVIDERS: PCP Registered Nurse; Visit Provider Nurse Practitioner Family
DX: K21.9 Gastro-esophageal reflux disease without esophagitis (principal); K59.04 Chronic idiopathic constipation
CPT/HCPCS: 99213

== ENCOUNTER → 2024-12-12 08:54 | Outpatient (BNVA) | payer MEDICARE, SELFPAY | PROVIDERS: PCP Registered Nurse; Visit Provider Nurse Practitioner Family | DX: K21.9 Gastro-esophageal reflux disease without esophagitis (principal); K59.04 Chronic idiopathic constipation | CPT/HCPCS: 99212 ==

== ENCOUNTER 2025-03-04 13:47 | Outpatient (AMB) | payer MEDICARE, SELFPAY ==
--- NOTE | 2025-03-04 13:50 | A.OFFVIS_ITS ---
Vital Signs 03/04/25 14:01 Height 4 ft 11 in Weight 145 lb 8.081 oz BMI 29.4 BP 148/78 H Blood Pressure Location Rt brachial Position Sitting Pulse 65 Pulse Source Pulse Oximeter Pulse Oximetry (%) 95 Oxygen Delivery Method Room Air Intake Visit Reasons: Hypoglycemia Intake Note: Patient presents here today for a follow-up on Hypoglycemia: * Random Glucose: 77 mg/dL * HbA1c: 5.8%, 03/04/2025 Cannoneer Required: Yes Cannoneer Language: Loss Prevention Research Engineer Services: Cannoneer Present Cannoneer Name: MADELEINE Alford/ARI WHITEHEAD Information Interpreted: non-clinical & clinical Accompanied by: Self / Same As Patient Allergies morphine [MORPHINE] Allergy (Unknown, Verified 03/04/25 13:51) RASH Medication List - Last Reconciled 03/04/25 by Dimple Ellsworth MD abaloparatide (Tymlos) 80 mcg (0.04 mL) subcut DAILY acetaminophen 1,000 mg PO Q6H PRN albuterol sulfate 90 mcg/actuation 2 inhalations inhalation Q4-6H PRN albuterol sulfate 2.5 mg (3 mL) inhalation Q4-6H PRN amlodipine 2.5 mg PO DAILY ascorbate calcium (vitamin C) 1 g PO Q6H atorvastatin 40 mg PO DAILY budesonide-formoterol 160-4.5 mcg/actuation inhalation calcium citrate 500 mg (2 x 250 mg calcium) PO BID 90 days cetirizine 10 mg PO DAILY PRN citalopram 20 mg PO DAILY cyanocobalamin (vitamin B-12) 1,000 mcg PO QAM cyclobenzaprine 10 mg PO TID PRN famotidine 20 mg PO BEDTIME guaifenesin ER (Mucus-ER MAX) 1,200 mg PO BID levothyroxine 75 mcg PO DAILY linaclotide (Linzess) 290 mcg PO QAM meloxicam 7.5 mg PO DAILY mirtazapine 45 mg PO BEDTIME montelukast 10 mg PO DAILY multivitamin 1 tab PO DAILY nebulizers As directed pantoprazole 40 mg PO QAM pen needle, diabetic As directed may substitute for daily use umeclidinium 62.5 mcg/actuation (Incruse Ellipta) 1 inh inhalation DAILY 30 days zolpidem 10 mg PO BEDTIME PRN HPI Comments Details: 73 YO Female with a PMHx autoimmune thyroid disease, Osteoporosis due to Hyperparathyroidism presenting for evaluation of hypoglycemia PCP sent for investigation if patient is having hypoglycemia. Patient had a syncopal episode at home. Her blood sugar at the time was over 200 She was seen by pcp at which time blood glucose was 66. She was given a blood glucose monitor to check glucose Today blood glucose is 77. She feels well Patient has been checking most frequently before breakfast-her numbers are variable 90-250 but denies any readings at home less than 70. She has been as high as 300 not fasting. Her A1C today is 5.8% ROS CONSTITUTIONAL: Denies weight loss, fever and chills. HEENT: Denies changes in vision and hearing. RESPIRATORY: Denies SOB and cough. CV: Denies palpitations and CP GI: Denies abdominal pain, nausea, vomiting and diarrhea. : Denies dysuria and urinary frequency. MSK: Denies new myalgia and joint pain. SKIN: Denies rash and pruritus. NEUROLOGICAL: Denies headache PSYCHIATRIC: Denies recent changes in mood. PHYSICAL EXAM: GENERAL: Alert and oriented x 3. NAD EYES: EOMI. Anicteric. HENT: Moist mucous membranes. No scleral icterus. No cervical lymphadenopathy. LUNGS: Clear to auscultation bilaterally. CARDIOVASCULAR: Regular rate and rhythm. No murmur. No JVD. ABDOMEN: Soft, non-tender +bs EXTREMITIES: No edema. Non-tender. SKIN: No rashes or lesions. Warm. NEUROLOGIC: No focal neurological deficits. CN II-XII grossly intact PSYCHIATRIC: Cooperative. Appropriate mood and affect [facility] Medical History Transaminitis Pulmonary nodules Allergies Kidney stone Back pain Arthritis HLD (hyperlipidemia) Hypothyroidism Diabetes Hypertension Asthma Hyperthyroidism Vitamin D deficiency Primary hyperparathyroidism Postablative hypothyroidism Surgical History History of craniotomy Hx of colonoscopy History of esophagogastroduodenoscopy (EGD) Hx of endoscopy S/P subtotal parathyroidectomy History of carpal tunnel release of both wrists Hx of cataract removal with insertion of prosthetic lens Hx of lithotripsy Hx of cholecystectomy Hx of hysterectomy Family History Father No problems noted. Mother No problems noted. Social History Household Members: Family Are you a primary personal care assistant to a significant other at home: No Do you presently have visiting nurse or other home services: No Alcohol intake: never Patient Tobacco Use Status: Never used Tobacco Physical Exam Vital Signs: Last Vital Signs Pulse 65 03/04/25 14:01 BP 148/78 H 03/04/25 14:01 Pulse Ox 95 03/04/25 14:01 Oxygen Delivery Method Room Air 03/04/25 14:01 BMI result Body Mass Index 29.4 Results AMB Hemoglobin A1c AMB Hemoglobin A1c 5.8 % Last Edit by MADELEINE Alford on 03/04/25 14:16 Results Reviewed Results Reviewed: Laboratory Last Values Glucose (Clinic) 77 mg/dL (60-115) 03/04/25 14:05 Hgb A1c (Clinic) 5.8 % (4.0-6.0) 03/04/25 14:08 Assessment & Plan Assessment & Plan (1) Prediabetes: Code(s): R73.03 - Prediabetes Category: Medical Plan 74 year old for consult At this point she is not having worrisome hypoglycemia. She has had no further episodes of symptoms that are consistent with sympomatic hypoglycemia She is prediabetic. We will hold off hypolgycemia work-up unless clinical picture changes She will see the stacker straightener for tips at maintaining health glucose levels Orders: Orders AMB Hemoglobin A1c Today Z13.1 - Encounter for screening for diabetes mellitus Referrals Nutrition/Dietitian Referral R73.03 - Prediabetes Coding Level of Care Code Est Pt Level 4 (00703) Diagnoses Prediabetes R73.03
[2025-03-04 14:01] VITALS: BP 148/78; PULSE 65; O2SAT 95; BMI 29.4
[2025-03-04 14:08] LABS: Glucose, Whole Blood 77 mg/dL (60-115)
--- OUTSIDE RECORDS SUMMARY | 2025-03-04 15:40 | XMS_ITS | Clinical Summary ---
Author Organization [facility] Address [address] [place] [address] Care Team Providers Care Heel Seam Rubber Name Role Phone Unavailable Primary Care Provider Unavailabl e Source Comments PLEASE NOTE, if this patient is a minor, it may be UNLAWFUL to discuss sensitive information that is contained in these records (such as FAMILY PLANNING, MENTAL HEALTH or SUBSTANCE ABUSE) with the minor patient's parent or other person without the patient's specific authorization.[facility] Immunizations Immunization Administration Dates Next Due Moderna COVID-19 Vaccine, [...] (2 - Td or Tdap) 07/04/2021 011 [id number] (3 2023- season) 2024 021, 12/15/2020 Imm-Influenza (#1) 2024 08/13/2019, 1 10/07/2016, 06/17/2015, Additional history exists Alcohol and Drug Screen 09/24/2024 Depression Annual Screen 09/24/2024 Imm-Pneumococcal 65+ Completed 08/07/2017, 09/02/2015, 09/26/2007 Insurance [facility] HE[facility] SAFETY NET
== END 2025-03-04 14:27 | disposition home or self-care (01) ==
LOC: HO.ENCR 13:47
PROVIDERS: PCP Registered Nurse; Visit Provider Internal Medicine
DX: R73.03 Prediabetes (principal); Z13.1 Encounter for screening for diabetes mellitus

== ENCOUNTER → 2025-03-04 13:47 | Outpatient (BNVA) | payer MEDICARE, SELFPAY | PROVIDERS: PCP Registered Nurse; Visit Provider Internal Medicine | DX: R73.03 Prediabetes (principal); Z13.1 Encounter for screening for diabetes mellitus | CPT/HCPCS: 82947; 83036; 99212 ==

== ENCOUNTER 2025-03-31 10:42 | Outpatient (AMB) | payer MEDICARE, SELFPAY ==
--- NOTE | 2025-03-31 11:17 | A.OFFVIS_ITS ---
VS Expanded 03/31/25 11:18 Height 4 ft 11 in Weight 146 lb 13.246 oz BMI 29.7 Intake Visit Reasons: T2DM Allergies morphine (MORPHINE) Allergy (Unknown, Verified 03/04/25 13:51) RASH Nutrition Presentation Details: Pt presents for MNT for Pre DM Pt reports typically having reduced appetite for poultry/beef Typical meal B: 4-6 crackers, ritz, cheese, coffee with sugar/milk 12 : skips or a fruit 3-4 pm : rice/beans, water snack : musketeer/butter finger 9pm: pieces of cake and water food frequency fruits: 0-1/d fish: not including, dislikes vegetable: 3x/wk dairy: 0-1/d physical activity: daily life actives eoth: denies BS Monitoring Most Recent Diabetes Results: Creatinine, (0.5-1.4) 0.88 mg/dL 11/17/24 BUN, (9-16) 16 mg/dL 11/17/24 Sodium, (135-145) 146 mmol/L H 11/17/24 Potassium, (3.3-5.1) 4.8 mmol/L 11/17/24 Chloride, (96-108) 109 mmol/L H 11/17/24 Carbon Dioxide, (22-29) 29 mmol/L 11/17/24 Calcium, (8.4-10.2) 9.0 mg/dL Δ 11/17/24 AST, (5-31) 27 U/L 11/17/24 ALT, (0-31) 28 U/L 11/17/24 Total Protein, (6.5-8.0) 7.2 g/dL 11/17/24 Albumin, (3.5-5.0) 3.9 g/dL 11/17/24 MRN-Uzngifm-Xk.Jeor Equation Height: 4 ft 11 in Weight: 147 lb Resting Metabolic Rate: 1067.82 Calculated Activity Level: Sedentary Calories Needed to Maintain Weight: 1281.38 Diagnosis Nutrition problem #1: food nutri know defi As related to (etiology) #1: diagnosis As evidenced by (sign/symptom) #1: knowledge deficit of diet Monitoring/Goals Nutrition problem monitoring: level of knowledge/skill, total PRO intake and total CHO intake Nutrition goal/outcome: list 3 CHO foods (and 2 source of protein) Outcome progress: verbalized understanding Learning/Education Readiness to learn: good Stages of change: preparation Educational materials provided: Yes (meal planning) PFSH Medical History Transaminitis Pulmonary nodules Allergies Kidney stone Back pain Arthritis HLD (hyperlipidemia) Hypothyroidism Diabetes Hypertension Asthma Hyperthyroidism Vitamin D deficiency Primary hyperparathyroidism Postablative hypothyroidism Surgical History History of craniotomy Hx of colonoscopy History of esophagogastroduodenoscopy (EGD) Hx of endoscopy S/P subtotal parathyroidectomy History of carpal tunnel release of both wrists Hx of cataract removal with insertion of prosthetic lens Hx of lithotripsy Hx of cholecystectomy Hx of hysterectomy Family History Father No problems noted. Mother No problems noted. Social History Household Members: Family Are you a primary child care leader to a significant other at home: No Do you presently have visiting nurse or other home services: No Alcohol intake: never Patient Tobacco Use Status: Never used Tobacco Assessment & Plan Assessment & Plan (1) Prediabetes: Code(s): R73.03 - Prediabetes Category: Medical Plan: Wt: 67 Kg ( 04/17 ) Est kcal needs as per MSJ: 2953-3025 (40% carb, 30% protein/fat) Est fluid needs as per 25-30 ml/d: 2000 Est prot per day as per 1 g/kg bw: 70 Recommend fiber intake : 8-10 g per day and gradually increase to 25-28 g per day for women and 35-38 g for men or as tolerated Recommend sodium intake per day : less than 1500 mg less than 2000 mg Educated patient on: ( R = reviewed V = verbalizes understanding N/R = needs review N/A = not applicable * Food sources of carbohydrate, adequate serving sizes and its role in various health conditions: R * Differences between complex carbohydrates a simple carbohydrates, role of fiber in diet: R * Lean protein sources of foods: R * Differences between types of fats and role in diet (mono on saturated fat fatty acids, saturated fatty acids, trans fats): R V N/R * Food sources of sodium in salt and healthy modifications for heart health in kidney health: R V R/V * Vitamins and minerals: R V N/R * Healthy plate method concept: R * Physical activity: Benefits a precaution: R * Hypoglycemia protocol (rule of 15): R V N/R * Dietary prevention of Hyperglycemia: R Patient Instructions: Trabeje en reducir azucares anadidas ( postres, galletas dulces, soas, azucares anadidas a la smoidas/bebidas) Work on reducing sugars (pastries/cookies/juice drinks, sodas, sugar added to the food). Siga el planto alimenticio en la comida Follow healthy plate method at dinner - Escoja elin manzana or zanahorias con mantequilla de fabio mendoza merienda- kishore la lista de algunas meriendas y comidas Choose an apple with peanut butter as bedtime snack (instead of pastries ) -see list of meal/snack ideas printed in Lithuanian Coding Level of Care Code Nutr Indiv Intake (49137) Diagnoses Prediabetes R73.03 Time Spent (min) 30
[2025-03-31 11:18] VITALS: BMI 29.7
--- OUTSIDE RECORDS SUMMARY | 2025-03-31 11:42 | XMS_ITS | Clinical Summary ---
Author Organization [facility] Address [address] [place] [address] Care Team Providers Care Ship Pilot Dispatcher Name Role Phone Unavailable Primary Care Provider [...] (2 - Td or Tdap) 07/04/2021 011 Imm-RSV (adult) (1 - 1-dose 75+ series) 2023 [id number] (3 - 2023- season) 2024 021, 12/15/2020 Alcohol and Drug Screen 09/24/2024 Depression Annual Screen 09/24/2024 Imm-Influenza (#1) 2025 08/13/2019, 1 10/07/2016, 06/17/2015, Additional history exists Imm-Pneumococcal 50+ Completed 08/07/2017, 09/02/2015, 09/26/2007 Insurance [facility] SAFETY NET
--- OUTSIDE RECORDS SUMMARY | 2025-03-31 11:42 | XMS_ITS | Patient Health Record ---
Author Organization [facility] Address [address] [place] [address] Care Team Providers Care Assistant Store Leader Name Role Phone Pedro Luis Duvall Unavailable [phone] Reason For Referral No Information Plan Of Treatment No Information
--- OUTSIDE RECORDS SUMMARY | 2025-03-31 11:42 | XMS_ITS | Clinical Summary ---
Author Organization [address] [facility] Address [address] [place] [address] Phone Care Team Providers Care Manager File Name Role Phone Savannah Sanford Primary Care Provider Allergies Active Allergy Reactions [...] Problem Noted Date Diagnosed Date Meningioma, cerebral ([facility] V24, [facility] V28) 07/19/2023 Overview (07/22/2024): Last Assessment & Plan: [...] headaches which were treated with Fioricet in [place] but she has been unable to obtain it here. I will try again to order it for her from the [facility] pharmacy. Immunizations Name Administration Dates Next [...] HISTORICAL LITHOTRIPSY OTHER SURGICAL HISTORY 07/31/2023 PROCEDURE: [place] CRNEC TREPHINE BONE FLAP MENINGIOMA SUPRATENTOR; COMMENT: [...] Annual Retina Eye Exam 1960 RSV Immunization Adult Patients (1 - 1-dose 75+ series) 2023 Falls Risk Assessment 10/19/2023 Medicare Annual Wellness Visit 10/19/2023 Osteoporosis Screening (Bone Density Screening) 10/19/2023 Social Influencers of Health Screening 10/19/2023 COVID-19 Vaccine ( season) 2024 01/12/2021, 12/15/2020 Diabetes: Annual Urine Albumin-Creatinine Ratio (uACR) 07/28/2024 Diabetes: Blood Sugar Control Test (HGBA1C) 07/28/2024 12/17/2023 Depression Screening 03/19/2025 03/19/2024 Diabetes: Annual GFR (Glomerular Filtration Rate) 04/29/2025 04/29/2024 Hypertension/CHF/CAD Annual BMP Blood Test 04/29/2025 04/29/2024 Influenza Vaccine (#1) 2025 3, 06/22/2022, 08/13/2019, Additional history exists Cholesterol Screening (Lipid Panel) 02/01/2028 01/31/2023 DTaP,Tdap,and Td Vaccines (3 - Td or Tdap) 04/14/2032 04/14/2022, 07/04/2011 Pneumococcal Vaccine: 50+ Years Completed 08/07/2017, 09/02/2015, 09/26/2007 Zoster Vaccines Completed 07/24/2022, 08/0 01/2022, 11/23/2014 Hepatitis C Screening Completed 01/31/2023 [...] age to complete this topic Meningococcal B Vaccine Aged Out No l onger eligible based on patient's age to complete this topic RSV Immunization Patients Under 20 months Aged Out No longer eligible based on patient's age to complete this topic Varicella Vaccines Aged Out No longer eligible based on patient's age to complete this topic Insurance [employer] MEDICARE ADVANTAGE Care Teams Manager File Relationship Specialty Start Date End Date [facility] [address] [place] [id number] PCP - General Family Medicine 07/28/24
--- OUTSIDE RECORDS SUMMARY | 2025-03-31 11:42 | XMS_ITS | Encounter Summary ---
Author Organization [facility] Address [address] [facility] [address] [place] [address] Care Team Providers Care Calender Operator Helper Name Role Phone [facility] Primary Care Provider [phone] Reason for Visit * Reason Comments Med Refill Encounter Details Date Type Department Care Team ([facility] Contact Info) Description 11/06/2022 Refill [facility] MED [facility] PEDS [address] [place], [place] [phone] [facility] [address] [place], [place] [phone] Depressive disorder Social History Tobacco Use Types [...] as of this encounter Plan of Treatment Upcoming Encounters Date Type Department Care Team (Late Contact Info) Description 04/08/2025 10:00 AM EDT Clinical Support [facility] MEDICINE [address] [place], [place] [phone] documented as of this encounter Visit Diagnoses Diagnosis Depressive disorder Depressive disorder, not elsewhere classified documented in this encounter Additional Health Concerns Assessment Noted Time PHQ-9 Depression Total Score: 0 10/24/19 23 10:40 AM EST documented as of this encounter Care Teams Calender Operator Helper Relationship Specialty Start Date End Date Pat Juan FNP [address] [place] [phone] PCP - General Family Medicine 05/04/22 documented as of this encounter
[2025-03-31 12:15] VITALS: BMI 29.7
== END 2025-03-31 12:02 | disposition home or self-care (01) ==
LOC: HO.ENCR 10:42
PROVIDERS: PCP Registered Nurse; Visit Provider Dietitian, Registered
DX: R73.03 Prediabetes (principal)

== ENCOUNTER → 2025-03-31 10:42 | Outpatient (BNVA) | payer MEDICARE, SELFPAY | PROVIDERS: PCP Registered Nurse; Visit Provider Dietitian, Registered | DX: R73.03 Prediabetes (principal); Z71.3 Dietary counseling and surveillance | CPT/HCPCS: 97802 ==

== ENCOUNTER 2025-04-08 10:01 | Outpatient (REF) | payer MEDICARE, SELFPAY ==
--- OUTSIDE RECORDS SUMMARY | 2025-04-08 10:36 | XMS_ITS | Clinical Summary ---
Author Organization [facility] Address [address] [place] [address] Phone Care Team Providers Care Warehouse Guard Name Role Phone [facility]on [facility] [place] Primary Care Provider [phone] Allergies Active Allergy Reactions Criticality Noted Date [...] Problem Noted Date Diagnosed Date Meningioma, cerebral ([facility] V24, [facility] V28) 07/19/2023 Overview (07/22/2024): Last Assessment & [...] headaches which were treated with Fioricet in [place] but she has been unable to obtain it here. I will try again to order it for her from the [facility] pharmacy. Immunizations Name Administration Dates Next [...] HISTORICAL LITHOTRIPSY OTHER SURGICAL HISTORY 07/31/2023 PROCEDURE: [place] CRNEC TREPHINE BONE FLAP MENINGIOMA SUPRATENTOR; COMMENT: [...] Control Test (HGBA1C) 07/28/2024 12/17/2023 Depression Screening 09/24/2024 Diabetes: Annual GFR (Glomerular Filtration Rate) 04/29/2025 04/29/2024 Hypertension/CHF/CAD Annual BMP Blood Test 04/29/2025 04/29/2024 Influenza Vaccine (#1) 2025 3, 06/22/2022, 08/13/2019, Additional history exists Cholesterol Screening (Lipid Panel) 02/01/2028 01/31/2023 DTaP,Tdap,and Td Vaccines (3 - Td or Tdap) 04/14/2032 04/14/2022, 07/04/2011 Pneumococcal Vaccine: 50+ Years Completed 08/07/2017, 09/02/2015, 09/26/2007 Zoster Vaccines Completed 07/24/2022, 0801/2022, 11/23/2014 Hepatitis C Screening Completed 01/31/2023 HIB [...] topic Insurance [employer] MED[employer] ADVANTAGE Care Teams Warehouse Guard Relationship Specialty Start Date End Date [facility] [place] [address] [place] [address] PCP - General Family Medicine 07/28/24
--- OUTSIDE RECORDS SUMMARY | 2025-04-08 10:36 | XMS_ITS | Clinical Summary ---
Author Organization [facility] Address [address] [place] [address] Care Team Providers Care Scraper Loader Operator Name Role Phone Unavailable Primary Care Provider [...] (adult) (1 - 1-dose 75+ series) 2023 [id number] (3 - 2023- season) 2024 021, 12/15/2020 Alcohol and Drug Screen 09/24/2024 Depression Annual Screen 09/24/2024 Imm-Influenza (#1) 2025 08/13/2019, 1 10/07/2016, 06/17/2015, Additional history exists Imm-Pneumococcal 50+ Completed 08/07/2017, 09/02/2015, 09/26/2007 Insurance [employer] [facility] HEALTH SAFETY NET
--- OUTSIDE RECORDS SUMMARY | 2025-04-08 10:36 | XMS_ITS | Encounter Summary ---
Author Organization [employer] Address [address] [place] [address] Care Team Providers Care Technician Semiconductor Development Name Role Phone [facility] Primary Care Provider [phone] Reason for Visit * Reason Comments Med Refill Encounter Details Date Type Department Care Team ([facility] Contact Info) Description 11/06/2022 Refill [facility] MED & PEDS [address] [place], [place] [phone] [facility] [address] [place], [place] [phone] Depressive disorder Social History Tobacco Use Types [...] Department Care Team (Late Contact Info) Description 04/22/2025 11:00 AM EDT Clinical Support [facility] MEDICINE [address] [place], [place] [phone] documented as of this encounter Visit Diagnoses Diagnosis Depressive disorder Depressive disorder, not elsewhere classified documented in this encounter Additional Health Concerns Assessment Noted Time PHQ-9 Depression Total Score: 0 10/24/19 23 10:40 AM EST documented as of this encounter Care Teams Technician Semiconductor Development Relationship Specialty Start Date End Date Pat Juan FNP [address] [place] [address] PCP - General Family Medicine 05/04/22 documented as of this encounter
--- OUTSIDE RECORDS SUMMARY | 2025-04-08 10:36 | XMS_ITS | Patient Health Record ---
Author Organization [facility] Address [address] [place] [address] Care Team Providers Care Hiv Prevention Specialist Name Role Phone Pedro Luis Duvall Unavailable [phone] Reason For Referral No Information Plan Of Treatment No Information
== END 2025-04-08 10:02 | disposition home or self-care (01) ==
LOC: HO.HHCL 10:01
PROVIDERS: PCP Registered Nurse; Visit Provider Registered Nurse
DX: I10 Essential (primary) hypertension (principal)
CPT/HCPCS: 36415

== ENCOUNTER 2025-04-20 06:56 | Outpatient (REF) | payer MEDICARE, SELFPAY ==
--- NOTE | ~2025-04-20 | XR_ITS ---
EXAMINATION: XR KNEE, RIGHT CLINICAL INFORMATION: M25.561 - Pain in right knee COMPARISON: December 09, 2021 TECHNIQUE: Three views of the right knee. FINDINGS: There is no joint effusion. There is mild narrowing of the medial joint space. Tibial spines demonstrates small osteophytes. There are small osteophytes along the medial joint line, slightly increased. XR/XR knee RT 3V IMPRESSION: Mild osteoarthritis. Electronically signed by: Stephane Reyes MD 04/20/2025 02:10 PM EDT
--- OUTSIDE RECORDS SUMMARY | 2025-04-20 06:58 | XMS_ITS | Clinical Summary ---
Author Organization [facility] Address [address] [place] [address] Phone Care Team Providers Care Kai Whakaruruhau Name Role Phone [place] [facility] Primary Care Provider [phone] Allergies Active Allergy Reactions Criticality Noted Date [...] Problem Noted Date Diagnosed Date Meningioma, cerebral ([facility] V24, [facility] V28) 07/19/2023 Overview (07/22/2024): Last Assessment & [...] headaches which were treated with Fioricet in [place] but she has been unable to obtain it here. I will try again to order it for her from the [facility] pharmacy. Immunizations Name Administration Dates Next Due [...] topic Insurance [employer] MEDICARE ADVANTAGE Care Teams Kai Whakaruruhau Relationship Specialty Start Date End Date [place] [facility] [address] [place] [address] PCP - General Family Medicine 07/28/24
--- OUTSIDE RECORDS SUMMARY | 2025-04-20 06:58 | XMS_ITS | Patient Health Record ---
Author Organization [facility] Address [address] [place] [address] Care Team Providers Care Truck Driver Heavy Name Role Phone Pedro Luis Duvall Unavailable [phone] Reason For Referral No Information Plan Of Treatment No Information
--- OUTSIDE RECORDS SUMMARY | 2025-04-20 06:58 | XMS_ITS | Encounter Summary ---
Author Organization [employer] Address [address] [place] [address] Care Team Providers Care Chromosomal Disorders Counselor Name Role Phone [facility] Primary Care Provider [phone] Reason for Visit * Reason Comments Med Refill Encounter Details Date Type Department Care Team ([facility] Contact Info) Description 11/06/2022 Refill [facility] CHC MED & PEDS [address] [place], [place] [phone] [facility] [address] [place], [place] [phone] Depressive disorder Social History Tobacco Use Types [...] Description 04/22/2025 11:00 AM EDT Clinical Support [facility] MEDICINE [address] [place], [place] [phone] documented as of this encounter Visit Diagnoses Diagnosis Depressive disorder Depressive disorder, not elsewhere classified documented in this encounter Additional Health Concerns Assessment Noted Time PHQ-9 Depression Total Score: 0 10/24/19 23 10:40 AM EST documented as of this encounter Care Teams Chromosomal Disorders Counselor Relationship Specialty Start Date End Date Pat Juan FNP [address] [place] [address] PCP - General Family Medicine 05/04/22 documented as of this encounter
== END 2025-04-20 06:57 | disposition home or self-care (01) ==
LOC: HO.HOSX 06:56
PROVIDERS: Visit Provider Orthopaedic Surgery
DX: M17.11 Unilateral primary osteoarthritis, right knee (principal); M25.561 Pain in right knee; M25.861 Other specified joint disorders, right knee; Z79.890 Hormone replacement therapy; Z79.899 Other long term (current) drug therapy; Z79.51 Long term (current) use of inhaled steroids; Z79.1 Long term (current) use of non-steroidal anti-inflammatories (NSAID)
CPT/HCPCS: 73562; 99202

== ENCOUNTER 2025-04-20 13:38 | Outpatient (AMB) | payer MEDICARE, SELFPAY ==
[2025-04-20 14:06] VITALS: BMI 28.3
--- NOTE | 2025-04-20 14:06 | A.OFFVIS_ITS ---
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 The patient describes her pain as sharp in nature. Her pain has gotten worse over the last 3 years in spite of continued non operative treatments. She has failed the last 3 months of conservative treatment which has included Tylenol, anti-inflammatory medicines, physical therapy and a home exercise program. She has had cortisone injections in the past. The most recent injection gave her no relief. She has not had a viscosupplementation injection. She wishes to hold off on surgery if at all possible. Medical Malpractice Paralegal Required: Yes Medical Malpractice Paralegal Services: Medical Malpractice Paralegal Offered & Declined Medical Malpractice Paralegal Name: Ada- Daughter. Allergies morphine (MORPHINE) Allergy (Unknown, Verified 04/20/25 14:16) RASH Medication List - Last Reconciled 04/20/25 by Terry Hernandes MD abaloparatide (Tymlos) 80 mcg (0.04 mL) subcut DAILY acetaminophen 1,000 mg PO Q6H PRN albuterol sulfate 90 mcg/actuation 2 inhalations inhalation Q4-6H PRN albuterol sulfate 2.5 mg (3 mL) inhalation Q4-6H PRN amlodipine 2.5 mg PO DAILY ascorbate calcium (vitamin C) 1 g PO Q6H atorvastatin 40 mg PO DAILY budesonide-formoterol 160-4.5 mcg/actuation inhalation calcium citrate 500 mg (2 x 250 mg calcium) PO BID 90 days cetirizine 10 mg PO DAILY PRN citalopram 20 mg PO DAILY cyanocobalamin (vitamin B-12) 1,000 mcg PO QAM cyclobenzaprine 10 mg PO TID PRN famotidine 20 mg PO BEDTIME guaifenesin ER (Mucus-ER MAX) 1,200 mg PO BID levothyroxine 75 mcg PO DAILY linaclotide (Linzess) 290 mcg PO QAM meloxicam 7.5 mg PO DAILY mirtazapine 45 mg PO BEDTIME montelukast 10 mg PO DAILY multivitamin 1 tab PO DAILY nebulizers As directed pantoprazole 40 mg PO QAM pen needle, diabetic As directed may substitute for daily use umeclidinium 62.5 mcg/actuation (Incruse Ellipta) 1 inh inhalation DAILY 30 days zolpidem 10 mg PO BEDTIME PRN PFSH Medical History Transaminitis Pulmonary nodules Allergies Kidney stone Back pain Arthritis HLD (hyperlipidemia) Hypothyroidism Diabetes Hypertension Asthma Hyperthyroidism Vitamin D deficiency Primary hyperparathyroidism Postablative hypothyroidism Surgical History History of craniotomy Hx of colonoscopy History of esophagogastroduodenoscopy (EGD) Hx of endoscopy S/P subtotal parathyroidectomy History of carpal tunnel release of both wrists Hx of cataract removal with insertion of prosthetic lens Hx of lithotripsy Hx of cholecystectomy Hx of hysterectomy Family History Father No problems noted. Mother No problems noted. Social History Household Members: Family Are you a primary home care coordinator to a significant other at home: No Do you presently have visiting nurse or other home services: No Alcohol intake: never Patient Tobacco Use Status: Never used Tobacco Physical Exam Vital Signs: BMI result Body Mass Index 28.3 Const Other: Well-nourished well-developed very friendly female awake alert and oriented x3 in no acute distress Extrem Other: Bilateral lower extremity examination shows good capillary refill, no skin lesions noted, normal sensation light touch Right knee examination shows a minimal effusion, palpable crepitus with range of motion, pain with range of motion, no instability Results Reviewed Results Reviewed: X-rays of the patient's right knee show joint space narrowing, subchondral sclerosis, no acute bony abnormalities Assessment & Plan Assessment & Plan (1) Osteoarthritis of right knee: Code(s): M17.11 - Unilateral primary osteoarthritis, right knee Category: Medical Plan Ms. Davis presents with right knee pain due to osteoarthritis. I had a lengthy discussion with the patient regarding the treatment options. She wishes to hold off on surgery if at all possible. I agree with this plan. I will see if the patient's insurance company will cover a viscosupplementation injection, such as Durolane, for her right knee. I will see her back once the injection is available. Feel free to call me at any time should questions regarding her orthopedic management arise. Thank you very much for asking me to see this very friendly patient. I spent 22 minutes in reviewing the patient's records and imaging studies, seeing the patient and documenting in the medical record. Orders: Orders XR knee RT 3V Today M25.561 - Pain in right knee Coding Level of Care Code New Pt Level 3 (96125) Complex EM visit Add On G2211 Diagnoses Osteoarthritis of right knee M17.11
== END 2025-04-20 14:39 | disposition home or self-care (01) ==
LOC: HO.HOS 13:39
PROVIDERS: PCP Registered Nurse; Visit Provider Orthopaedic Surgery
DX: M17.11 Unilateral primary osteoarthritis, right knee (principal)
CPT/HCPCS: 99203; G2211

== ENCOUNTER → 2025-04-20 13:46 | Outpatient (BNV) | payer MEDICARE, SELFPAY | PROVIDERS: Visit Provider Radiology Diagnostic Radiology | DX: M25.561 Pain in right knee (principal) | CPT/HCPCS: 73562 ==

== ENCOUNTER 2025-04-28 09:16 | Outpatient (AMB) | payer MEDICARE, SELFPAY ==
[2025-04-28 09:17] VITALS: BMI 28.3
--- NOTE | 2025-04-28 09:17 | A.OFFVIS_ITS ---
Vital Signs 04/28/25 09:17 Height 4 ft 11 in Weight 140 lb BMI 28.3 Intake Visit Reasons: Inj- Right knee Durolane Inj Intake Note: Hedy is a 74 year old female who presents with complaints of progressively worsening right knee pain. The patient describes her pain as sharp in nature. Her pain has gotten worse over the last 3 years in spite of continued non operative treatments. She has failed the last 3 months of conservative treatment which has included Tylenol, anti-inflammatory medicines, physical therapy and a home exercise program. She has had cortisone injections in the past. The most recent injection gave her no relief. She has not had a viscosupplementation injection. She wishes to hold off on surgery if at all possible. Land Acquisition Analyst Required: Yes Land Acquisition Analyst Services: Land Acquisition Analyst Present Land Acquisition Analyst Name: [id number] [id number]/Lyly Allergies morphine (MORPHINE) Allergy (Unknown, Verified 04/28/25 09:23) RASH Medication List - Last Reconciled 04/28/25 by Terry Hernandes MD abaloparatide (Tymlos) 80 mcg (0.04 mL) subcut DAILY acetaminophen 1,000 mg PO Q6H PRN albuterol sulfate 90 mcg/actuation 2 inhalations inhalation Q4-6H PRN albuterol sulfate 2.5 mg (3 mL) inhalation Q4-6H PRN amlodipine 2.5 mg PO DAILY ascorbate calcium (vitamin C) 1 g PO Q6H atorvastatin 40 mg PO DAILY budesonide-formoterol 160-4.5 mcg/actuation inhalation calcium citrate 500 mg (2 x 250 mg calcium) PO BID 90 days cetirizine 10 mg PO DAILY PRN citalopram 20 mg PO DAILY cyanocobalamin (vitamin B-12) 1,000 mcg PO QAM cyclobenzaprine 10 mg PO TID PRN famotidine 20 mg PO BEDTIME guaifenesin ER (Mucus-ER MAX) 1,200 mg PO BID levothyroxine 75 mcg PO DAILY linaclotide (Linzess) 290 mcg PO QAM meloxicam 7.5 mg PO DAILY mirtazapine 45 mg PO BEDTIME montelukast 10 mg PO DAILY multivitamin 1 tab PO DAILY nebulizers As directed pantoprazole 40 mg PO QAM pen needle, diabetic As directed may substitute for daily use umeclidinium 62.5 mcg/actuation (Incruse Ellipta) 1 inh inhalation DAILY 30 days zolpidem 10 mg PO BEDTIME PRN PFSH Medical History Transaminitis Pulmonary nodules Allergies Kidney stone Back pain Arthritis HLD (hyperlipidemia) Hypothyroidism Diabetes Hypertension Asthma Hyperthyroidism Vitamin D deficiency Primary hyperparathyroidism Postablative hypothyroidism Surgical History History of craniotomy Hx of colonoscopy History of esophagogastroduodenoscopy (EGD) Hx of endoscopy S/P subtotal parathyroidectomy History of carpal tunnel release of both wrists Hx of cataract removal with insertion of prosthetic lens Hx of lithotripsy Hx of cholecystectomy Hx of hysterectomy Family History Father No problems noted. Mother No problems noted. Social History Household Members: Family Are you a primary insurance healthcare representative to a significant other at home: No Do you presently have visiting nurse or other home services: No Alcohol intake: never Patient Tobacco Use Status: Never used Tobacco Physical Exam Vital Signs: BMI result Body Mass Index 28.3 Const Other: Well-nourished well-developed very friendly female awake alert and oriented x3 in no acute distress Extrem Other: Right knee examination shows a minimal effusion, palpable crepitus with range of motion, pain with range of motion, no instability Office Procedures AMB Joint Injection/Aspiration Joint Injection/Aspiration Primary Site: right knee Prep: site was prepped using aseptic technique Injected: 60 mg of (Durolane viscosupplementation) and 1% plain lidocaine Procedure: The patient tolerated the procedure well Coding 07304 - Large joint Procedure code (CPT) selection complete Results Reviewed Results Reviewed: X-rays of the patient's right knee taken previously show joint space narrowing, subchondral sclerosis, no acute bony abnormalities Assessment & Plan Assessment & Plan (1) Osteoarthritis of right knee: Code(s): M17.11 - Unilateral primary osteoarthritis, right knee Category: Medical Plan Ms. Davis presents with right knee pain due to osteoarthritis. The risks and benefits of a Durolane viscosupplementation injection were discussed at length with the patient. The patient wished to proceed. She tolerated the injection well. She will continue with her home exercise program. She will contact me prior to her follow-up appointment in 3 months should any questions or concerns arise. Feel free to call me at any time should questions regarding her orthopedic management arise. I spent 20 minutes in reviewing the patient's records and imaging studies, seeing the patient and documenting in the medical record. Orders: Orders AMB Joint Injection/Aspiration Today M17.11 - Unilateral primary ost eoarthritis, right knee Coding Level of Care Code Est Pt Level 3 (73056) Complex EM visit Add On G2211 Diagnoses Osteoarthritis of right knee M17.11 CPT Codes Coding - 70920 Large joint: 09020 - Large joint ([id number])
--- OUTSIDE RECORDS SUMMARY | 2025-04-28 09:37 | XMS_ITS | Clinical Summary ---
Author Organization [facility] Address [address] [place] [address] Care Team Providers Care Tow Truck Driver Name Role Phone Unavailable Primary Care Provider [...] (adult) (1 - 1-dose 75+ series) 2023 [id number] (3 - 2023- season) 2024 021, 12/15/2020 Alcohol and Drug Screen 09/24/2024 Depression Annual Screen 09/24/2024 Imm-Influenza (#1) 2025 08/13/2019, 1 10/07/2016, 06/17/2015, Additional history exists Imm-Pneumococcal 50+ Completed 08/07/2017, 09/02/2015, 09/26/2007 Insurance [employer] [facility] SAFETY NET
--- OUTSIDE RECORDS SUMMARY | 2025-04-28 09:37 | XMS_ITS | Patient Health Record ---
Author Organization [facility] Address [address] [place] [address] Care Team Providers Care Telecom Network Manager Name Role Phone Pedro Luis Duvall Unavailable [phone] Reason For Referral No Information Plan Of Treatment No Information
--- OUTSIDE RECORDS SUMMARY | 2025-04-28 09:37 | XMS_ITS | Encounter Summary ---
Author Organization [employer] Address [address] [place] [address] Care Team Providers Care Deputy Coroner Name Role Phone [facility] Primary Care Provider [phone] Reason for Visit * Reason Comments Med Refill Encounter Details Date Type Department Care Team ([facility] Contact Info) Description 11/06/2022 Refill [facility] CHC MED & PEDS [address] [place], [place] [phone] [facility] [address] [place], [place] [phone] Depressive disorder Social History Tobacco Use Types [...] Department Care Team (Late Contact Info) Description 05/13/2025 10:30 AM EDT Clinical Support [facility] MEDICINE [address] [place], [place] [phone] documented as of this encounter Visit Diagnoses Diagnosis Depressive disorder Depressive disorder, not elsewhere classified documented in this encounter Additional Health Concerns Assessment Noted Time PHQ-9 Depression Total Score: 0 10/24/19 23 10:40 AM EST documented as of this encounter Care Teams Deputy Coroner Relationship Specialty Start Date End Date Pat Juan FNP [address] [place] [address] PCP - General Family Medicine 05/04/22 documented as of this encounter
--- OUTSIDE RECORDS SUMMARY | 2025-04-28 09:37 | XMS_ITS | Clinical Summary ---
Author Organization [facility] Address [address] [place] [address] Phone Care Team Providers Care Business Line Controller Name Role Phone [place] [place] [facility] Primary Care Provider [phone] Allergies Active Allergy Reactions Criticality Noted Date [...] Problem Noted Date Diagnosed Date Meningioma, cerebral ([facility] V24, [facility] V28) 07/19/2023 Overview (07/22/2024): Last Assessment & [...] headaches which were treated with Fioricet in [place] but she has been unable to obtain it here. I will try again to order it for her from the [facility] pharmacy. Immunizations Name Administration Dates Next Due [...] HISTORICAL LITHOTRIPSY OTHER SURGICAL HISTORY 07/31/2023 PROCEDURE: [place] CRNEC TREPHINE BONE FLAP MENINGIOMA SUPRATENTOR; COMMENT: [...] topic Insurance [employer] MEDICARE ADVANTAGE Care Teams Business Line Controller Relationship Specialty Start Date End Date [place] [address] [place] [address] PCP - General Family Medicine 07/28/24
== END 2025-04-28 09:49 | disposition home or self-care (01) ==
LOC: HO.HOS 09:16
PROVIDERS: Visit Provider Orthopaedic Surgery
DX: M17.11 Unilateral primary osteoarthritis, right knee (principal)
CPT/HCPCS: 20610; 99213

== ENCOUNTER → 2025-04-28 09:16 | Outpatient (BNVA) | payer MEDICARE, SELFPAY | PROVIDERS: Visit Provider Orthopaedic Surgery | DX: M17.11 Unilateral primary osteoarthritis, right knee (principal) | CPT/HCPCS: 20610; 99212; J2003; J7318 ==

== ENCOUNTER 2025-05-12 13:59 | Outpatient (AMB) | payer MEDICARE, SELFPAY ==
[2025-05-12 14:14] VITALS: BP 120/60; PULSE 68; BMI 29.4
--- NOTE | 2025-05-12 14:14 | MHC.OFFVIS ---
Vital Signs 05/12/25 14:14 Height 4 ft 11 in Weight 145 lb 8.081 oz BMI 29.4 BP 120/60 Blood Pressure Location Lt brachial Position Sitting Pulse 68 Pulse Source Pulse Oximeter Intake Visit Reasons: followup req by pcp dr. portillo/vasovagal syncope Development Technician Required: Yes Development Technician Services: Development Technician Offered & Declined Accompanied by: Daughter Allergies morphine (MORPHINE) Allergy (Unknown, Verified 04/28/25 09:23) RASH Medication List - Last Reconciled 05/12/25 by Robert Carranza MD abaloparatide (Tymlos) 80 mcg (0.04 mL) subcut DAILY acetaminophen 1,000 mg PO Q6H PRN albuterol sulfate 90 mcg/actuation 2 inhalations inhalation Q4-6H PRN albuterol sulfate 2.5 mg (3 mL) inhalation Q4-6H PRN ascorbate calcium (vitamin C) 1 g PO Q6H atorvastatin 40 mg PO DAILY budesonide-formoterol 160-4.5 mcg/actuation inhalation calcium citrate 500 mg (2 x 250 mg calcium) PO BID 90 days cetirizine 10 mg PO DAILY PRN citalopram 20 mg PO DAILY cyanocobalamin (vitamin B-12) 1,000 mcg PO QAM cyclobenzaprine 10 mg PO TID PRN famotidine 20 mg PO BEDTIME levothyroxine 75 mcg PO DAILY linaclotide (Linzess) 290 mcg PO QAM meloxicam 7.5 mg PO DAILY mirtazapine 45 mg PO BEDTIME montelukast 10 mg PO DAILY multivitamin 1 tab PO DAILY nebulizers As directed olmesartan mg PO pantoprazole 40 mg PO QAM pen needle, diabetic As directed may substitute for daily use propranolol 10 mg PO TID umeclidinium 62.5 mcg/actuation (Incruse Ellipta) 1 inh inhalation DAILY 30 days zolpidem 10 mg PO BEDTIME PRN HPI Comments Details: Hedy returns for follow-up. Last year, she was seen in consultation regarding chest pains. She has a background of asthma. She underwent workup with myocardial perfusion imaging study which was unremarkable. Many comorbidities and she is also on polypharmacy. Around December of this year, it seems that she had a syncopal episode at home. Daughter states that she suddenly felt dizzy, was pale and passed out. She was taken to [facility] where the diagnosis was vasovagal syncope. She was apparently sick with respiratory symptoms for the week prior to that episode. After that, nothing of that magnitude but another episode much less intense. [facility] Medical History Transaminitis Pulmonary nodules Allergies Kidney stone Back pain Arthritis HLD (hyperlipidemia) Hypothyroidism Diabetes Hypertension Asthma Hyperthyroidism Vitamin D deficiency Primary hyperparathyroidism Postablative hypothyroidism Surgical History History of craniotomy Hx of colonoscopy History of esophagogastroduodenoscopy (EGD) Hx of endoscopy S/P subtotal parathyroidectomy History of carpal tunnel release of both wrists Hx of cataract removal with insertion of prosthetic lens Hx of lithotripsy Hx of cholecystectomy Hx of hysterectomy Family History Father No problems noted. Mother No problems noted. Social History Household Members: Family Are you a primary occasional caregiver to a significant other at home: No Do you presently have visiting nurse or other home services: No Alcohol intake: never Patient Tobacco Use Status: Never used Tobacco Review of Systems Const Denies weakness ENT Reports dizziness Card Denies chest pain, Denies chest pain with activity, Denies syncope, Denies rapid heart rate, Denies pedal edema, Denies edema, Denies leg edema, Denies lightheadedness, Denies palpitations, Denies dyspnea, Denies dyspnea on exertion and Denies orthopnea Resp Denies cough, Denies dyspnea and Denies dyspnea on exertion GI Denies hematochezia and Denies change in stool character Musc Denies abnormal gait, Reports myalgias, Denies muscle cramps, Denies muscle weakness, Denies numbness, Denies radiating pain into limb and Denies tingling Neuro Denies abnormal gait, Reports dizziness, Denies syncope, Denies numbness, Denies tingling and Denies weakness Endo Denies palpitations Physical Exam Vital Signs: Last Vital Signs Pulse 68 05/12/25 14:14 BP 120/60 05/12/25 14:14 BMI result Body Mass Index 29.4 Const General: comfortable and no acute distress Orientation/consciousness: patient oriented x3 HEENT Other: Unremarkable Head: Yes normal to inspection Neck Neck: Yes normal visual inspection Chest Chest palpation & inspection: normal inspection of the chest Resp Auscultation: wheezes and diminished lung sounds Cardio Palpation: normal PMI Heart sounds: S1 normal heart sound present, S2 normal heart sound present, no gallops, no murmurs and no rubs GI Palpation (GI): Soft to palpation Back/Spine/Pelvis Other: unremarkable Skin General skin exam: no rashes or lesions noted Neuro General: patient oriented x3 Extrem General: Yes normal to inspection Psych Mental Status: mental status grossly normal Assessment & Plan Assessment & Plan (1) Syncope and collapse: Code(s): R55 - Syncope and collapse Category: Medical Plan Pertinent data reviewed. Echocardiogram with LVEF of 66%; moderate septal hypertrophy and mid inferoseptal hypokinesis. Repeat study at [facility]-LVEF 55-60% and description of normal wall thickness. No wall motion abnormalities. Myocardial perfusion imaging study shows normal perfusion. In the exercise component, she was able to exercise for 7 METS with no chest discomfort and no EKG evidence of ischemia. Per [facility] notes, description was vasovagal syncope in the setting of asthma exacerbation. Apparently, EKG, EEG, echocardiogram were unremarkable. For completion sake, we will get a 2 week Holter monitor although doubt any arrhythmogenic etiology for his syncope. If there is any significant bradycardia, consider stopping Propranolol, especially as she also has asthma. Daughter states it is for high blood pressure. We will follow up in 3 months. Discussed with daughter who also acted as personal service workers. Orders: Orders ECG 14 day holter monitor Today R55 - Syncope and collapse Coding Level of Care Code Est Pt Level 3 (75110) Diagnoses Syncope and collapse R55
--- OUTSIDE RECORDS SUMMARY | 2025-05-12 15:19 | XMS_ITS | Patient Health Record ---
Author Organization [facility] Address [address] [place] [address] Care Team Providers Care Adult Basic Education Manager Name Role Phone Pedro Luis Duvall Unavailable [phone] Reason For Referral No Information Plan Of Treatment No Information
--- OUTSIDE RECORDS SUMMARY | 2025-05-12 15:19 | XMS_ITS | Clinical Summary ---
Author Organization [facility] Address [address] [place] [address] Phone Care Team Providers Care Obstetrics Scrub Nurse Name Role Phone [place] Primary Care Provider [phone] Allergies Active Allergy Reactions Criticality Noted Date [...] Problem Noted Date Diagnosed Date Meningioma, cerebral ([facility] V24, [facility] V28) 07/19/2023 Overview (07/22/2024): Last Assessment & [...] headaches which were treated with Fioricet in [place] but she has been unable to obtain it here. I will try again to order it for her from the [facility] pharmacy. Immunizations Name Administration Dates [...] HISTORICAL LITHOTRIPSY OTHER SURGICAL HISTORY 07/31/2023 PROCEDURE: [place] CRNEC TREPHINE BONE FLAP MENINGIOMA SUPRATENTOR; COMMENT: [...] topic Insurance [employer] MEDICARE ADVANTAGE Care Teams Obstetrics Scrub Nurse Relationship Specialty Start Date End Date [place] [address] [place] [address] PCP - General Family Medicine 07/28/24
--- OUTSIDE RECORDS SUMMARY | 2025-05-12 15:19 | XMS_ITS | Encounter Summary ---
Author Organization [employer] Address [address] [facility] [address] [place] [address] Care Team Providers Care Personnel Quality Assurance Auditor Name Role Phone [facility] Primary Care Provider [phone] Reason for Visit * Reason Comments Med Refill Encounter Details Date Type Department Care Team ([facility] Contact Info) Description 11/06/2022 Refill [facility] MED & PEDS [address] [place] [address] [facility] [address] [place], [place] [phone] Depressive disorder Social History Tobacco Use Types [...] Upcoming Encounters Date Type Department Care Team ([facility] Contact Info) Description 05/13/2025 10:30 AM EDT Clinical Support [address] [address] 06/29/2025 10:30 AM EDT Office Visit [address] [phone] Pat Juan FNP [address] [place] [address] documented as of this encounter Visit Diagnoses Diagnosis Depressive disorder Depressive disorder, not elsewhere classified documented in this encounter Additional Health Concerns Assessment Noted Time PHQ-9 Depression Total Score: 0 10/24/19 23 10:40 AM EST documented as of this encounter Care Teams Personnel Quality Assurance Auditor Relationship Specialty Start Date End Date Pat Juan FNP [address] [place] [address] PCP - General Family Medicine 05/04/22 documented as of this encounter
--- OUTSIDE RECORDS SUMMARY | 2025-05-12 15:19 | XMS_ITS | Clinical Summary ---
Author Organization [facility] Address [address] [place] [address] Care Team Providers Care Gang Pusher Name Role Phone Unavailable Primary Care Provider [...] (adult) (1 - 1-dose 75+ series) 2023 [id number] (3 - 2023- season) 2024 021, 12/15/2020 Alcohol and Drug Screen 09/24/2024 Depression Annual Screen 09/24/2024 Imm-Influenza (#1) 2025 08/13/2019, 1 10/07/2016, 06/17/2015, Additional history exists Imm-Pneumococcal 50+ Completed 08/07/2017, 09/02/2015, 09/26/2007 Insurance [employer] HEALTH SAFETY NET
== END 2025-05-12 14:39 | disposition home or self-care (01) ==
LOC: HO.HCS 13:59
PROVIDERS: PCP Registered Nurse; Visit Provider Internal Medicine
DX: R55 Syncope and collapse (principal)
CPT/HCPCS: 99213

== ENCOUNTER → 2025-05-12 13:59 | Outpatient (BNVA) | payer MEDICARE, SELFPAY | PROVIDERS: PCP Registered Nurse; Visit Provider Internal Medicine | DX: R55 Syncope and collapse (principal) | CPT/HCPCS: 99212 ==

== ENCOUNTER 2025-05-14 11:12 | Outpatient (AMB) | payer MEDICARE, SELFPAY ==
--- NOTE | 2025-05-14 11:37 | A.OFFVIS_ITS ---
VS Expanded 05/14/25 11:39 Height 4 ft 11 in Weight 147 lb 7.828 oz BMI 29.8 Intake Visit Reasons: PReDM Allergies morphine (MORPHINE) Allergy (Unknown, Verified 04/28/25 09:23) RASH Nutrition Presentation Details: Pt presents for MNT f/u for Pre DM Pt is monitoring her glucose and has had bg in 211 in the past 2 weeks, related to increased intake of sweets 7 d bg averag at 103, 14 d bg average 105 mg/dl, 30 d at 107 mg/dl in the fasting state Pt reports having 3 meals/day , choosing low sugar foods and reducing frequency of empty calorie foods Betdtime snack working on including a protein in combination with fruit/carb fluids: with meals : 24-32 oz/d (water, diluted juice, milk, sometimes reg soda) PFSH Medical History Transaminitis Pulmonary nodules Allergies Kidney stone Back pain Arthritis HLD (hyperlipidemia) Hypothyroidism Diabetes Hypertension Asthma Hyperthyroidism Vitamin D deficiency Primary hyperparathyroidism Postablative hypothyroidism Surgical History History of craniotomy Hx of colonoscopy History of esophagogastroduodenoscopy (EGD) Hx of endoscopy S/P subtotal parathyroidectomy History of carpal tunnel release of both wrists Hx of cataract removal with insertion of prosthetic lens Hx of lithotripsy Hx of cholecystectomy Hx of hysterectomy Family History Father No problems noted. Mother No problems noted. Social History Household Members: Family Are you a primary child care assistant to a significant other at home: No Do you presently have visiting nurse or other home services: No Alcohol intake: never Patient Tobacco Use Status: Never used Tobacco Assessment & Plan Assessment & Plan (1) Prediabetes: Code(s): R73.03 - Prediabetes Category: Medical Plan: Wt: 67 Kg ( 04/17 ),05/18 Est kcal needs as per MSJ: 8785-4688 (40% carb, 30% protein/fat) Est fluid needs as per 25-30 ml/d: 2000 Est prot per day as per 1 g/kg bw: 70 Recommend fiber intake : 8-10 g per day and gradually increase to 25-28 g per day for women and 35-38 g for men or as tolerated Recommend sodium intake per day : less than 2000 mg Educated patient on: ( R = reviewed V = verbalizes understanding N/R = needs review N/A = not applicable * Food sources of carbohydrate, adequate serving sizes and its role in various health conditions: R * Differences between complex carbohydrates a simple carbohydrates, role of fiber in diet: R * Lean protein sources of foods: R * Differences between types of fats and role in diet (mono on saturated fat fatty acids, saturated fatty acids, trans fats): R * Food sources of sodium in salt and healthy modifications for heart health in kidney health: R * Vitamins and minerals: R V N/R * Healthy plate method concept: R * Physical activity: Benefits a precaution: R * Hypoglycemia protocol (rule of 15): R V N/R * Dietary prevention of Hyperglycemia: R Patient Instructions: include food source of omega 3 at least twice a week (nuts, seeds, fish) ex half peanut butter sand and water as bedtime snack Coding Level of Care Code Nutr Indiv Subseq (33874) Diagnoses Prediabetes R73.03 Time Spent (min) 25
[2025-05-14 11:39] VITALS: BMI 29.8
--- OUTSIDE RECORDS SUMMARY | 2025-05-14 12:54 | XMS_ITS | Encounter Summary ---
Author Organization [employer] Address [address] [facility] [address] [place] [address] Care Team Providers Care Grant Administrator Name Role Phone [facility] Primary Care Provider [phone] Reason for Visit * Reason Comments Med Refill Encounter Details Date Type Department Care Team ([facility] Contact Info) Description 11/06/2022 Refill [facility] CHC MED & PEDS [address] [place], [place] [phone] [facility] [address] [place], [place] [phone] Depressive disorder Social History Tobacco Use Types [...] Upcoming Encounters Date Type Department Care Team ([facility] Contact Info) Description 06/29/2025 10:30 AM EDT Office Visit [facility] MEDICINE [address] [place], [place] [phone] [facility] [address] [place], [place] [phone] documented as of this encounter Visit Diagnoses Diagnosis Depressive disorder Depressive disorder, not elsewhere classified documented in this encounter Additional Health Concerns Assessment Noted Time PHQ-9 Depression Total Score: 0 10/24/19 23 10:40 AM EST documented as of this encounter Care Teams Grant Administrator Relationship Specialty Start Date End Date Pat Juan FNP [address] [place] [address] PCP - General Family Medicine 05/04/22 documented as of this encounter
--- OUTSIDE RECORDS SUMMARY | 2025-05-14 12:54 | XMS_ITS | Patient Health Record ---
Author Organization [facility] Address [address] [place] [address] Care Team Providers Care Garage Construction Equipment Mechanic Name Role Phone Pedro Luis Duvall Unavailable [phone] Reason For Referral No Information Plan Of Treatment No Information
--- OUTSIDE RECORDS SUMMARY | 2025-05-14 12:54 | XMS_ITS | Clinical Summary ---
Author Organization [facility] Address [address] [place] [address] Phone Care Team Providers Care Pewter Caster Name Role Phone [facility] Primary Care Provider [phone] Allergies Active Allergy Reactions Criticality Noted Date [...] Problem Noted Date Diagnosed Date Meningioma, cerebral ([facility] V24, [facility] V28) 07/19/2023 Overview (07/22/2024): Last Assessment [...] headaches which were treated with Fioricet in [place] but she has been unable to obtain it here. I will try again to order it for her from the [facility] pharmacy. Immunizations Name Administration Dates Next [...] HISTORICAL LITHOTRIPSY OTHER SURGICAL HISTORY 07/31/2023 PROCEDURE: [place] CRNEC TREPHINE BONE FLAP MENINGIOMA SUPRATENTOR; COMMENT: [...] topic Insurance [employer] MEDICARE ADVANTAGE Care Teams Pewter Caster Relationship Specialty Start Date End Date [facility] [address] [place] [address] PCP - General Family Medicine 07/28/24
--- OUTSIDE RECORDS SUMMARY | 2025-05-14 12:54 | XMS_ITS | Clinical Summary ---
Author Organization [facility] Address [address] [place] [address] Care Team Providers Care Traveling Inventory Associate Name Role Phone Unavailable Primary Care Provider [...] (adult) (1 - 1-dose 75+ series) 2023 [id number] (3 - 2023- season) 2024 021, 12/15/2020 Alcohol and Drug Screen 09/24/2024 Depression Annual Screen 09/24/2024 Imm-Influenza (#1) 2025 08/13/2019, 1 10/07/2016, 06/17/2015, Additional history exists Imm-Pneumococcal 50+ Completed 08/07/2017, 09/02/2015, 09/26/2007 Insurance [employer] HEALTH SAFETY NET
== END 2025-05-14 13:00 | disposition home or self-care (01) ==
LOC: HO.ENCR 11:12
PROVIDERS: PCP Registered Nurse; Visit Provider Dietitian, Registered
DX: R73.03 Prediabetes (principal)

== ENCOUNTER → 2025-05-14 11:12 | Outpatient (BNVA) | payer MEDICARE, SELFPAY | PROVIDERS: PCP Registered Nurse; Visit Provider Dietitian, Registered | DX: R73.03 Prediabetes (principal); E78.5 Hyperlipidemia, unspecified; E55.9 Vitamin D deficiency, unspecified; Z71.3 Dietary counseling and surveillance | CPT/HCPCS: 97803 ==

== ENCOUNTER → 2025-05-26 14:35 | Outpatient (REF) | payer MEDICARE, SELFPAY ==
--- NOTE | 2025-05-26 14:40 | HM_ITS ---
Conclusion: 1. Patient was monitored for total period of 13 days 2. Baseline was normal sinus rhythm with average heart rate of 64 beats per minute 3. Rare PACs noted without significant tachyarrhythmias 4. No significant pauses noted 5. Patient marked the counter 6 times with symptoms of shortness of breath or palpitations, only 1 of the counters match. Isolated PACs MTDD
--- OUTSIDE RECORDS SUMMARY | 2025-05-26 15:46 | XMS_ITS | Encounter Summary ---
Author Organization [employer] Address [address] [facility] 7t [place] [address] Care Team Providers Care Balling Machine Operator Name Role Phone [facility] Primary Care Provider [phone] Reason for Visit * Reason Onset Date Comments Med Refill 04/08/2025 Encounter Details Date Type Department Care Team ([facility] st Contact Info) Description 04/08/2025 Telephone [facility] MEDICINE [address] [place], [place] [phone] [facility] [address] [place], [place] [phone] Med Refill Social History Tobacco Use Types [...] Date Recorded Patient Health Questionnaire-9 Score 0 03/25/2025 Patient Health Questionnaire-9 Score 0 03/25/2025 Last PHQ-9: Questionnaire Data Not on file 0 03/25/2025 Housing Stability Answer Date Recorded What is your housing situation today? I have john see 03/18/[address] you li ve. Do you have problems with any of the following? None of the above 03/18/2025 Food Insecurity Answer Date Recorded Within the past 12 months, y ou worried that your food would run out before you got money to buy more: Sometimes True 2024 Within the past 12 months,th e food you bought just didn't last and you didn't have enough money to get more: Sometimes True 03/18/2025 Transportation Answer Date Recorded In the past 12 months, has l ack of transportation kept you from medical appts, meetings, work or from getting things needed for daily living? No 03/18/2025 Utilities Answer Date Recorded In the past 12 months, has t he electric, gas, oil or water company threatened to shut off services in your home? No 03/18/2025 Depression Answer Date Recorded Patient Health Questionnaire-2 Score 0 03/25/2025 Internet Access Answer Date Recorded Internet Access Q1 Yes 03/18/2025 Internet Access Q2 Not on file 03/18/2025 Comments Unknown Sex and Gender Information Value Date Recorded Sex Assigned at Female 07/24/2022 10:16 AM EDT Legal Sex Female 10:16 AM EDT Gender Identity Female 07/24/2022 10:16 AM EDT Sexual Orientation Straight 07/24/2022 10 :16 AM EDT documented as of this encounter Miscellaneous Notes * Telephone Encounter - Cynthia Crespo LPN - 04/08/2025 12:40 PM EDT Medication pended to PCP. * Telephone Encounter - Dav Cole - 04/08/2025 12:15 PM EDT TC from pt requesting medication refill. Medications needing refill : mirtazapine (Remeron Eliana-Tab) 45 MG disintegrating tablet To be sent to: [facility] [place] [place] - [address] [facility] [address] documented in this encounter Plan of Treatment Upcoming Encounters Date Type Department Care Team (Late st Contact Info) Description 06/29/2025 10:30 AM EDT Office Visit [facility] MEDICINE [address] [place] [address] ReweyPat giraldo FNP [address] [place] [address] documented as of this encounter Visit Diagnoses Not on filedocumented in this encounter Additional Health Concerns Assessment Noted Time PHQ-9 Depression Total Score: 0 03/25/20 25 11:20 AM EDT documented as of this encounter Care Teams Balling Machine Operator Relationship Specialty Start Date End Date Pat Juan FNP [address] [place] [address] PCP - General Family Medicine 05/04/22 documented as of this encounter
--- OUTSIDE RECORDS SUMMARY | 2025-05-26 15:46 | XMS_ITS | Encounter Summary ---
Author Organization [employer] Address [address] [facility] 7t [place] [address] Care Team Providers Care Vmware Administrator Name Role Phone [facility] Primary Care Provider [phone] Reason for Visit * Reason Comments Med Refill Encounter Details Date Type Department Care Team ([facility] st Contact Info) Description 02/21/2024 Refill [facility] MEDICINE [address] [place], [place] [phone] [facility] [address] [place], [place] [phone] Depressive disorder Social History Tobacco Use Types [...] Description 06/29/2025 10:30 AM EDT Office Visit [facility] MEDICINE [address] [place] [address] Pat Juan FNP [address] [place] [address] documented as of this encounter Visit Diagnoses Diagnosis Depressive disorder Depressive disorder, not elsewhere classified documented in this encounter Additional Health Concerns Assessment Noted Time PHQ-9 Depression Total Score: 7 01/04/20 24 8:14 AM EDT documented as of this encounter Care Teams Vmware Administrator Relationship Specialty Start Date End Date Pat Juan FNP [address] [place] [address] PCP - General Family Medicine 05/04/22 documented as of this encounter
--- OUTSIDE RECORDS SUMMARY | 2025-05-26 15:46 | XMS_ITS | Encounter Summary ---
Author Organization [employer] Address [address] [facility] [address] [place] [address] Care Team Providers Care Engineering Scientist Name Role Phone [facility] Primary Care Provider [phone] Reason for Visit * Reason Comments Med Refill Encounter Details Date Type Department Care Team ([facility] Contact Info) Description 11/06/2022 Refill [facility] CHC MED & PEDS [address] [place], [place] [phone] [facility] [address] [place], [place] [phone] Depressive disorder Social History Tobacco Use Types [...] Upcoming Encounters Date Type Department Care Team ([facility] Contact Info) Description 06/29/2025 10:30 AM EDT Office Visit [facility] MEDICINE [address] [place], [place] [phone] [facility] [address] [place], [place] [phone] documented as of this encounter Visit Diagnoses Diagnosis Depressive disorder Depressive disorder, not elsewhere classified documented in this encounter Additional Health Concerns Assessment Noted Time PHQ-9 Depression Total Score: 0 10/24/19 23 10:40 AM EST documented as of this encounter Care Teams Engineering Scientist Relationship Specialty Start Date End Date Pat Juan FNP [address] [place] [address] PCP - General Family Medicine 05/04/22 documented as of this encounter
--- OUTSIDE RECORDS SUMMARY | 2025-05-26 15:46 | XMS_ITS | Encounter Summary ---
Author Organization [employer] Address [address] [facility] 7t [place] [address] Care Team Providers Care Adjustment Examiner Name Role Phone [facility] Primary Care Provider [phone] Reason for Visit * Reason Comments Med Refill Encounter Details Date Type Department Care Team ([facility] st Contact Info) Description 11/08/2023 Refill [facility] MED[facility]INE [address] [place], [place] [phone] [facility] [address] [place], [place] [phone] Tingling of both feet Social History Tobacco [...] Description 06/29/2025 10:30 AM EDT Office Visit [facility] [address] [place] [address] Pat Juan FNP [address] [place] [address] documented as of this encounter Visit Diagnoses Diagnosis Tingling of both feet documented in this encounter Additional Health Concerns Assessment Noted Time PHQ-9 Depression Total Score: 13 024 11:25 AM EST documented as of this encounter Care Teams Adjustment Examiner Relationship Specialty Start Date End Date Pat Juan FNP [address] [place] [address] PCP - General Family Medicine 05/04/22 documented as of this encounter
--- OUTSIDE RECORDS SUMMARY | 2025-05-26 15:46 | XMS_ITS | Encounter Summary ---
Author Organization [employer] Address [address] [facility] 7t [place] [address] Care Team Providers Care Citizenship Instructor Name Role Phone Pat Juan STACK ATTENDANT Primary Care Provider [phone] Reason for Visit * Reason Comments Med Refill Encounter Details Date Type Department Care Team (Late st Contact Info) Description 10/24/2023 Refill [facility] MEDICINE [address] [place], [place] [phone] Tracee Coulter ANP 230 [place], [place] [phone] Depressive disorder Social History Tobacco Use Types [...] Visit [facility] [address] [place] [address] Pat Juan FNP [address] [place] [address] documented as of this encounter Visit Diagnoses Diagnosis Depressive disorder Depressive disorder, not elsewhere classified documented in this encounter Additional Health Concerns Assessment Noted Time PHQ-9 Depression Total Score: 0 07/18/20 23 9:27 AM EDT documented as of this encounter Care Teams Citizenship Instructor Relationship Specialty Start Date End Date Pat Jaun FNP [address] [place] [address] PCP - General Family Medicine 05/04/22 documented as of this encounter
--- OUTSIDE RECORDS SUMMARY | 2025-05-26 15:46 | XMS_ITS | Encounter Summary ---
Author Organization [employer] Address [address] [facility] 7t [place] [address] Care Team Providers Care Mobile Home Lot Utility Worker Name Role Phone [place] [facility] Primary Care Provider [phone] Reason for Visit * Reason Comments Med Refill Encounter Details Date Type Department Care Team ([facility] st Contact Info) Description 01/02/2024 Refill [facility] MEDICINE [address] [place], [place] [phone] [facility] 230 [place], [place] [phone] Tingling of both feet; Depressive disorder Social [...] AM EDT documented as of this encounter Functional Status * Over the past 2 weeks, how often have you been bothered by any of the following problems? Question Answer Date of Assessment Author Patient Health Questionnaire-2 Score 1 12/23 8:14 AM EDT Joe Castañeda * If you checked off any problems on this questionnaire so far, Question Answer Date of Assessment Author How difficult have these problems made it for you to do your work, take care of things at home, or get along with other people? Somewhat difficult 01/04/2024 8:14 AM EDT Joe Castañeda * Over the last 2 weeks, how often have you been bothered by any of the following problems? Question Answer Date of Assessment Author Feeling nervous, anxious, or on edge 1 12/23 8:15 AM FLORIDALMAT Joe Castañeda Not being able to stop or co ntrol worrying 1 01/04/2024 8:15 AM FLORIDALMAT Joe Castañeda Worrying too much about diff erent things 1 01/04/2024 8:15 AM EDT Joe Castañeda Trouble relaxing 0 01/04/2024 8:15 AM EDT Joe Dave Being so restless that it is hard to sit still 1 01/04/2024 8:15 AM Joe Rosario Becoming easily annoyed or irritable 0 12/23 8:15 AM EDT Joe Castañeda Feeling afraid as if somethi ng awful might happen 1 01/04/2024 8:15 AM Jeo Rosario HERACLIO-7 Total Score 5 01/04/2024 8:15 AM EDT Joe Castañeda * Over the past 2 weeks, how often have you been bothered by any of the following problems? Question Answer Date of Assessment Author Little interest or pleasure in doing things Several days 01/04/2024 8:14 AM EDT Joe Castañeda Feeling down, depressed, or hopeless Not at all 01/04/2024 8:14 AM EDT Joe Castañeda Trouble falling or staying asleep, or sleeping too much Nearly every day 01/04/2024 8:14 AM EDT Joe Castañeda Feeling tired or having little energy Several days 01/04/2024 8:14 AM EDT Joe Castañeda Poor appetite or overeating Several days 01/04/2024 8: 14 AM EDT Joe Castañeda Feeling bad about yourself - or that you are a failure or have let yourself or your family down Not at all 01/04/2024 8:14 AM FLORIDALMAT Joe Castañeda Trouble concentrating on things, such as reading the newspaper or watching television Not at all 01/04/2024 8:14 AM FLORIDALMAT Joe Castañeda Moving or speaking so slowly that other people could have noticed? Or the opposite - being so fidgety or restless that you have been moving around a lot more than usual. Several days 01/04/2024 8:14 AM FLORIDALMAT Joe Castañeda Thoughts that you would be better off or hurting yourself in some way Not at all 01/04/2024 8:14 AM EDT Joe Castañeda Patient Health Questionnaire-9 Score 7 01/04/2024 8:14 AM EDT Brennen Castañeda documented as of this encounter Plan of Treatment Upcoming Encounters Date Type Department Care Team (Late st Contact Info) Description 06/29/2025 10:30 AM EDT Office Visit [facility] MEDICINE [address] [place], [place] [phone] [place], [facility] 230 [place] [address] documented as of this encounter Visit Diagnoses Diagnosis Tingling of both feet Depressive disorder Depressive disorder, not elsewhere classified documented in this encounter Additional Health Concerns Assessment Noted Time PHQ-9 Depression Total Score: 0 12/17/19 24 9:18 AM EDT documented as of this encounter Care Teams Mobile Home Lot Utility Worker Relationship Specialty Start Date End Date Drake CARLOS Stewart [address] [place] [address] PCP - General Family Medicine 05/04/22 documented as of this encounter
--- OUTSIDE RECORDS SUMMARY | 2025-05-26 15:46 | XMS_ITS | Encounter Summary ---
Author Organization [employer] Address [address] [facility] 7t [place] [address] Care Team Providers Care Platform Mill Supervisor Name Role Phone [employer] Primary Care Provider [phone] Reason for Visit * Reason Comments Med Refill Encounter Details Date Type Department Care Team ([facility] st Contact Info) Description 10/15/2024 Refill [facility]INE [address] [place], [place] [phone] [facility] 230 [place], [place] [phone] Depressive disorder Social History Tobacco Use Types [...] Description 06/29/2025 10:30 AM EDT Office Visit [facility] MED[facility]INE [address] [place] [address] [place] g[place] FNP [address] [place] [address] documented as of this encounter Visit Diagnoses Diagnosis Depressive disorder Depressive disorder, not elsewhere classified documented in this encounter Additional Health Concerns Assessment Noted Time PHQ-9 Depression Total Score: 0 03/19/20 24 8:51 AM EDT documented as of this encounter Care Teams Platform Mill Supervisor Relationship Specialty Start Date End Date Pat Juan FNP [address] [place] [address] PCP - General Family Medicine 05/04/22 documented as of this encounter
--- OUTSIDE RECORDS SUMMARY | 2025-05-26 15:46 | XMS_ITS | Encounter Summary ---
Author Organization [employer] Address [address] [facility] 7t [place] [address] Care Team Providers Care Bladder Trimmer Name Role Phone [place] [facility] Primary Care Provider [phone] Reason for Visit * Reason Onset Date Comments Med Refill 02/29/2024 Encounter Details Date Type Department Care Team ([facility] st Contact Info) Description 02/29/2024 Telephone [facility] MEDICINE [address] [place], [place] [phone] [facility] 230 [place], [place] [phone] Med Refill Social History Tobacco Use Types [...] 10 MG tablet To be sent to: [facility] [place], [place] - [address] documented in this encounter Plan of Treatment Upcoming Encounters Date Type Department Care Team (Late st Contact Info) Description 06/29/2025 10:30 AM EDT Office Visit [facility] MEDICINE [address] [place] [address] Pat Juan FNP [address] [place] [address] documented as of this encounter Visit Diagnoses Not on filedocumented in this encounter Additional Health Concerns Assessment Noted Time PHQ-9 Depression Total Score: 7 01/04/20 24 8:14 AM EDT documented as of this encounter Care Teams Bladder Trimmer Relationship Specialty Start Date End Date Pat Juan FNP [address] [place] [address] PCP - General Family Medicine 05/04/22 documented as of this encounter
--- OUTSIDE RECORDS SUMMARY | 2025-05-26 15:46 | XMS_ITS | Encounter Summary ---
Author Organization [employer] Address [address] [facility] 7t [place] [address] Care Team Providers Care Chocolate Molder Name Role Phone Pat Juan RADIOLOGIC THERAPIST Primary Care Provider [phone] Encounter Details Date Type Department Care Team (Late st Contact Info) Description 08/09/2023 Abstract [facility] MEDICINE [address] [place], [place] [phone] Rhina Diez Social History Tobacco Use Types [...] Description 06/29/2025 10:30 AM EDT Office Visit [facility] MEDICINE [address] [place] [address] Pat Juan FNP [address] [place] [address] documented as of this encounter Visit Diagnoses Not on filedocumented in this encounter Additional Health Concerns Assessment Noted Time PHQ-9 Depression Total Score: 0 07/18/20 23 9:27 AM EDT documented as of this encounter Care Teams Chocolate Molder Relationship Specialty Start Date End Date Pat Juan FNP [address] [place] [address] PCP - General Family Medicine 05/04/22 documented as of this encounter
--- OUTSIDE RECORDS SUMMARY | 2025-05-26 15:46 | XMS_ITS | Clinical Summary ---
Author Organization [facility] Address [address] [place] [address] Care Team Providers Care Supervisor Fabrication Department Name Role Phone Unavailable Primary Care Provider [...] (adult) (1 - 1-dose 75+ series) 2023 [id number] (3 - 2023- season) 2024 021, 12/15/2020 Alcohol and Drug Screen 09/24/2024 Depression Annual Screen 09/24/2024 Imm-Influenza (#1) 2025 08/13/2019, 1 10/07/2016, 06/17/2015, Additional history exists Imm-Pneumococcal 50+ Completed 08/07/2017, 09/02/2015, 09/26/2007 Insurance [place] [employer] [employer] NET
--- OUTSIDE RECORDS SUMMARY | 2025-05-26 15:46 | XMS_ITS | Encounter Summary ---
Author Organization [employer] Address [address] [facility] 7t [place] [address] Care Team Providers Care Humanities Coordinator Name Role Phone [place] [facility] Primary Care Provider [phone] Reason for Visit * Reason Comments Med Refill Encounter Details Date Type Department Care Team ([facility] st Contact Info) Description 12/06/2023 Refill [facility] MEDICINE 230 [place], [place] [phone] [facility] 230 [place], [place] [phone] Depressive disorder Social History Tobacco Use Types [...] Description 06/29/2025 10:30 AM EDT Office Visit [facility] MEDICINE [address] [place] [address] Pat Juan FNP [address] [place] [address] documented as of this encounter Visit Diagnoses Diagnosis Depressive disorder Depressive disorder, not elsewhere classified documented in this encounter Additional Health Concerns Assessment Noted Time PHQ-9 Depression Total Score: 13 024 11:25 AM EST documented as of this encounter Care Teams Humanities Coordinator Relationship Specialty Start Date End Date Pat Juan FNP [address] [place] [address] PCP - General Family Medicine 05/04/22 documented as of this encounter
--- OUTSIDE RECORDS SUMMARY | 2025-05-26 15:46 | XMS_ITS | Clinical Summary ---
Author Organization [employer] Address [address] [facility] [address] [place] [address] Care Team Providers Care Job Boss Name Role Phone Pat Juan [facility] Primary Care Provider [phone] Allergies Active Allergy Reactions Criticality Noted Date Comments Morphine Rash Low 03/24/2011 Other reaction(s): Rash Medications * This document contains information received from the source organization and may not represent a complete record from that organization. glucose blood (NicePeopleAtWorkTouch Ultra) test strip USE 1 STRIP by DIRECTED route every day 021 Active Nebulizers (Compressor Nebulizer) misc Use as directed with Albuterol, DX: J45.40 018 Active pantoprazole (ProtoNix) 40 MG EC tablet 1 tablet Once per day. 022 Active Blood Glucose Monitoring Suppl (ONE [...] Take 1 tablet by mouth at bedtime. 023 Active Linzess 290 MCG capsule Take 1 capsule by mouth in the morning. 023 Active albuterol 108 (90 Base) MCG/ACT inhaler INHALE 2 PUFFS BY MOUTH EVERY 4 HOURS IF NEEDED 8.5 g 024 Active Multiple Vitamin (Multivitamin) tablet Take 1 tablet by mouth Once per day. TAKE 1 TABLET BY MOUTH EVERY DAY WITH FOOD 90 tablet 3 07/31/2 024 Active propranolol (Inderal) 10 MG tabletIndications :Chronic nonintractable headache, unspecified headache type,Primary hypertension Take 1 tablet (10 mg) by mouth 3 times daily. 90 tablet 11 2024 Active Additional Information Patient taking differently:10 mg OralDaily, Reported on 01/27/2025 budesonide-formot yusuf (Symbicort) 160-4.5 MCG/ACT inhalerIndication s:Asthma, unspecified asthma severity, unspecified whether complicated, unspecified whether persistent INHALE 2 PUFFS EVERY MORNING AND DAILY AT BEDTIME and Q6h prn sob/cough 10.2 g 11 Active atorvastatin (Lipitor) 40 MG tablet TAKE 1 TABLET BY MOUTH EVERY DAY 30 tablet 10 Active levothyroxine (Synthroid, Levoxyl) 75 MCG tablet TAKE 1 TABLET BY MOUTH EVERY DAY BEFORE BREAKFAST 30 tablet 10 Active Tymlos 3120 MCG/1.56ML solution pen-injector Inject 80 mcg under the skin Once per day. Active Incruse Ellipta 62.5 MCG/ACT aerosol powder Inhale 1 Act Once per day. Active Multiple Vitamins-Minerals (Citracal +D3) tablet Take 1 tablet by mouth Once per day. Active Ascorbic Acid (vitamin C) 1000 MG tablet Take 1,000 mg by mouth Once per day. Active lidocaine (Lidoderm) 5 % patchIndications: Acute right-sided low back pain without sciatica Apply 1 patch topically Once per day. Remove & discard patch within 12 hours or as directed by . 30 patch 1 Active Blood Glucose Monitoring Suppl (FreeStyle Pease Lite) w/Device kitIndications:Pr ediabetes,Hypogly cemia Use to test blood sugar 1 times daily 1 kit Active Lancets miscIndications:P rediabetes,Hypogl ycemia Use to test blood sugar 1 times daily 100 each Active FREESTYLE LITE test stripIndications: Prediabetes,Hypog lycemia Use to test blood sugar 1 times daily 100 each 12 025 2025 Active Blood Glucose Monitoring Suppl (ONE TOUCH ULTRA 2) w/Device kitIndications:Ty pe 2 diabetes mellitus without complication, without long-term current use of insulin ([facility]) USE TO TEST BLOOD SUGAR ONCE A DAY 1 kit Active glucose blood (OneTouch Ultra) test stripIndications: Type 2 diabetes mellitus without complication, without long-term current use of insulin ([facility]) USE TO TEST BLOOD SUGAR ONCE A DAY 100 each 5 025 Active OneTouch Delica Lancets 33G miscIndications:T ype 2 diabetes mellitus without complication, without long-term current use of insulin ([facility]) USE TO TEST BLOOD SUGAR ONCE A DAY 100 each 5 025 Active montelukast (Singulair) 10 MG tablet TAKE 1 TABLET BY MOUTH EVERY DAY 30 tablet 5 Active cyclobenzaprine (Flexeril) 5 MG tabletIndications :Muscle spasm Take 1 tablet (5 mg) by mouth if needed at bedtime for muscle spasms. 15 tablet 025 2025 Active cyanocobalamin (Vitamin B-12) 1000 MCG tabletIndications :Tingling of both feet TAKE 1 TABLET BY MOUTH EVERY MORNING 30 tablet 4 Active citalopram (CeleXA) 20 MG tabletIndications :Depressive disorder TAKE 1 TABLET BY MOUTH EVERY DAY 90 tablet 025 Active olmesartan (BENIcar) 20 MG tabletIndications :Essential hypertension Take 1 tablet (20 mg) by mouth Once per day. 90 tablet 3 025 2025 Active mirtazapine (Remeron Eliana-Tab) 45 MG disintegrating tabletIndications :Depression, major, in remission ([facility]) TAKE 1 TABLET BY MOUTH DAILY AT BEDTIME 30 tablet 3 Active cetirizine (ZyrTEC) 10 MG tabletIndications :Seasonal allergies TAKE 1 TABLET BY MOUTH EVERY DAY NEEDED FOR ALLERGIES 90 tablet 1 025 Active Alcohol Swabs (Easy Touch Alcohol Prep Medium) 70 % padsIndications:P rediabetes,Hypogl ycemia USE TO TEST BLOOD SUGAR 1 TIMES DAILY 100 each 3 025 Active zolpidem (Ambien) 10 MG tabletIndications :Depressive disorder TAKE 1 TABLET BY MOUTH DAILY AT BEDTIME 28 tablet 025 Active meloxicam (Mobic) 7.5 MG tabletIndications :Muscle spasm TAKE 1 TABLET BY MOUTH EVERY DAY 30 tablet 025 Active cetirizine (ZyrTEC) 10 MG tabletIndications :Seasonal allergies TAKE 1 TABLET BY MOUTH EVERY DAY NEEDED FOR ALLERGIES 90 tablet 1 025 2024 Discontinued(R eorder (will not trigger notification to Pharmacy)) Alcohol Swabs 70 % padsIndications:P rediabetes,Hypogl ycemia Use to test blood sugar 1 times daily 100 each 025 2024 Discontinued mirtazapine (Remeron Eliana-Tab) 45 MG disintegrating tabletIndications :Depression, major, in remission (CMS/HCC) TAKE 1 TABLET BY MOUTH DAILY AT BEDTIME 30 tablet 3 025 2024 Discontinued(R eorder (will not trigger notification to Pharmacy)) zolpidem (Ambien) 10 MG tabletIndications :Depressive disorder TAKE 1 TABLET BY MOUTH DAILY AT BEDTIME 28 tablet 025 2024 Discontinued(R eorder (will not trigger notification to Pharmacy)) meloxicam (Mobic) 7.5 MG tabletIndications :Muscle spasm TAKE 1 TABLET BY MOUTH EVERY DAY 30 tablet 025 2024 Discontinued Active Problems Problem Noted Date Diagnosed Date Vasovagal syncope 02/03/2025 Assessment & Plan (02/03/2025 4:59 PM EDT): I decided to refer her also to cardiology for further investigation Prediabetes 02/03/2025 Assessment & Plan (02/03/2025 4:58 PM EDT): Counseling about healthy diet done today Acute right-sided low back pain without sciatica 02/03/2025 Assessment & Plan (02/03/2025 4:59 PM EDT): Patient today complained of lower back pain on the right side radiating to her right leg, no numbness or weakness, no sphincter relaxation I prescribed for her lidocaine patch and she may take acetaminophen as needed Hypoglycemia 02/03/2025 Assessment & Plan (02/03/2025 4:58 PM EDT): When syncope happen at home blood sugar was tested and it was over 200s but today during the visit glucose was in the low side 66, patient has had an hemoglobin A1c of six 6.1 in the past today's was 5.6, I decided to refer her to endocrinology for further investigation COVID-19 10/30/2024 Assessment & Plan (10/30/2024 11:00 [...] 01/04/2024 Chronic idiopathic constipation 05/05/2023 Overview (05/05/2023): Followed by [facility] Linzess Numbness and tingling in left hand [...] Assessment & Plan (06/18/2023 1:43 PM EDT): Etiology unclear for recent labile HTN DECREASE amlodipine to 2.5mg once daily RN BP check 1 week Reviewed ED precautions to include chest pain, shortness of breath, severe headache, sudden vision changes or BP >=180/>=120 mmHg. Contact HC if three or more BP readings >140/90. Assessment & Plan (05/05/2023 1:15 PM EDT): Well controlled Continue current regimen Type 2 diabetes mellitus [...] Results Component Value Date HGBA1C 5.3 06/08/2023 Well controlled with diet alone Assessment & Plan (05/05/2023 1:18 PM EDT): Lab Results Component Value Date HGBA1C 5.5 01/31/2023 Well controlled Continue current regimen Assessment & Plan (10/24/2022 11:48 PM EST): Well controlled Continue current mgnmt plan Will repeat routine labs at follow up Gastroesophageal reflux disease 06/02/2013 Overview (10/10/2024): Followed by [facility] Negative EGD 2021 Pantoprazole Pt seen [...] Assessment & Plan (06/18/2023 1:45 PM EDT): Start reclast therapy as planned with endocrinology Assessment & Plan (05/05/2023 1:06 PM EDT): Follow up as scheduled with endocrinology for repeat DEXA Continue vitamin D and calcium supplementation Continue weight bearing exercises Depression, unspecified 03/06/2013 [...] for Behavioral Health Integration Plan External OP BH therapy referral and OP psychiatry Referral Patient Self Plan Patient to utilize skills provided in intervention , Patient to reach out to [facility] team as needed, and Patient to engage [...] Assessment & Plan (08/01/2023 9:09 PM EST): Shared decision making re restarting ambien given increased risk with age. Pt prefers to continue d/t lack of benefit with other medications. Restart ambien 10mg at bedtime. Close monitoring for side effects/sleep walking Continue citalopram 20mg Declines therapy Will continue to monitor sx Assessment & Plan (06/18/2023 1:47 PM EDT): INCREASE citalopram 10mg to 20mg once daily Will refill mirtazipine and ambien today however discussed with patient increased risk of sedating medications with age. Will trial increased citalopram and referral for therapy to improve anxiety overall and trial ambien taper at follow up if sx have improved. Patient verbalizes understanding and agrees to plan Assessment & Plan (10/24/2022 11:52 PM EST): Well controlled. Denies SI or thoughts of self harm Continue current regimen Refills provided Dyslipidemia 03/06/2013 Hypothyroidism 03/06/2013 Overview (10/24/2022): Stable on levothyroxine 50mcg Assessment & Plan (11/26/2023 10:17 AM EST): - Repeat TSH - follow up as scheduled with Dr. Molina Assessment & Plan (06/18/2023 1:44 PM EDT): Will check TSH Follow up as scheduled with endocrinology Asthma 02/25/2013 Overview (12/17/2023): Cetrizine and montelukast PRN Symbicort b.i.d Spiriva--->did not tolerate. Self discontinuned Overnight home oxygen 2L PRN albuterol Followed by pulmonology [facility] Assessment & Plan (02/03/2025 4:57 PM EDT): Now stable continue with same interventions Assessment & Plan (10/30/2024 10:58 AM EST): Mild exacerbation due to Covid infection. Increase Symbicort to Que 6 hours prn SOB/cough. FU with [employer]. Assessment & Plan (08/18/2024 11:43 AM EST): [...] support system PLAN: 1. Follow up with [facility]: Recommended for follow-up: 07/31 @ 10am 2. Patient goal is to continue controlling symptoms. 3. Behavioral Recommendations a. F/u in 2 weeks. b. Continue use of coping skills Hyperkalemia 02/20/2018 10/24/2022 Encounters Date Type Department Care Team Description 05/18/2025 Refill [facility] [address] [place] [address] Olivia Ramirez MD Muscle spasm 05/13/2025 10:30 AM EDT Clinical Support [facility] [address] [place] [address] Rochelle Horn, JACE Primary hypertension 05/13/2025 Refill [facility] [address] [place] [address] [facility] Depressive disorder 05/13/2025 Telephone [facility] [address] [place] [address] Rochelle Horn, RN Blood Pressure Check 05/13/2025 Travel 05/11/2025 Refill [facility] [address] [place] [address] Lori Werner MD Prediabetes; Hypoglycemia 04/30/2025 Telephone [facility] [address] [place] [address] Pat Juan FNP oct recall 04/22/2025 11:00 AM EDT Clinical Support [facility] [address] [place] [address] Nadia Michelle, JACE Primary hypertension 04/22/2025 Refill [facility] [address] [place] [address] Rochelle Horn RN Essential hypertension 04/22/2025 Travel 04/16/2025 Refill [facility] [address] [place] [address] Pat Juan FNP Depressive disorder; Muscle spasm 04/08/2025 10:00 AM EDT Clinical Support [facility] [address] [place] [address] Kristy Alcaraz RN Essential hypertension 04/08/2025 Telephone [facility] [address] [place] [address] Pat Juan FNP Med Refill 04/08/2025 Orders Only [facility] [address] [place] [address] Pat Juan FNP 04/08/2025 Refill [facility] [address] [place] [address] Pat Juan FNP Essential hypertension; Depression, major, in remission (CMS/[facility]) 04/08/2025 Travel 04/08/2025 Refill [facility] [place] [place] [address] Pat Juan FNP Depression, major, in remission (CMS/HCC) 03/30/2025 Refill [facility] [address] [place] [address] Pat Juan FNP Tingling of both feet 03/25/2025 11:15 AM EDT Office Visit [facility] [place] [address] Pat Juan FNP Essential hypertension (Primary Dx); Muscle spasm; Dietary counseling; Exercise counseling 03/25/2025 Travel 03/24/2025 Telephone [facility] [address] [place] [address] Pat Juan FNP chart prep 03/20/2025 Refill [facility] [address] [place] [address] [facility] Muscle spasm 03/18/2025 Patient Outreach [facility] [address] [place] [address] [facility] Pre-visit Planning (SDOH screening positive and Tobacco screening negative) 03/16/2025 Refill [facility] [address] [place] [address] [facility] Depressive disorder 03/04/2025 Orders Only GENERIC EXTERNAL DATA DEPARTMENT Provider, Generic External Data from Last 3 Months Immunizations Immunization Administration Dates Next Due Influenza High-dose Quadrivalent [...] Sign Reading Time Taken Comments Blood Pressure 172/98 05/13/2025 11:03 AM EDT Pulse 56 05/13/2025 11:03 AM EDT Temperature 36.2 C (97.1 F) 03/25/2025 11:15 AM EDT Respiratory Rate 16 04/08/2025 9:59 AM EDT Oxygen Saturation 95% 04/08/2025 9:59 AM EDT Inhaled Oxygen Concentration - - Weight 67.4 kg (148 lb 9.6 oz) 03/25/2025 11:15 AM EDT Height 149.9 cm (4' 11 ) 03/25/2025 11:15 AM EDT Body Mass Index 30.01 03/25/2025 11:15 AM EDT Plan of Treatment Upcoming Encounters Date Type Department Care Team (Late st Contact Info) Description 06/29/2025 10:30 AM EDT Office Visit [facility] [address] [place], [place] [phone] Pat Juan, REMARKETING REP [address] [place] [address] Health Maintenance Due Date Last Done Comments Alcohol/Substance Use Screening 1962 Eye Exam 09/24/2023 09/24/2021 RSV Patients and Patients Aged 60 years or older (1 - 1-dose 75+ series) 2023 Diabetes: Foot Exam 03/19/2025 03/19/2024, 03/19/2024, 03/19/2024, Additional history exists COVID-19 Vaccine ( season) 2025 01/12/2021, 12/15/2020 Influenza Vaccine (#1) 2025 , 06/08/2023, 06/08/2023, Additional history exists Diabetes: Hemoglobin A1C 08/06/2025 025, 08/18/2024, 12/17/2023, Additional history exists Diabetes: Urine Protein Screening 09/15/2025 09/15/2024, 05/22/2022 Lipid Panel 09/15/2025 09/15/2024, 05, 05/22/2022 SDOH Screening 03/18/2026 03/18/2025 Depression Screening 03/25/2026 03/25/2025, 03/25/20 Tobacco Screening 03/31/2026 03/31/2025 DTaP/Tdap/Td Vaccines (3 - Td or Tdap) 04/14/2032 04/14/2022, 04/14/2022, 07/04/2011 Pneumococcal Vaccine: 50+ Years Completed 08/07/2017, 09/02/2015, 09/26/2007 Zoster Vaccines Completed 07/24/2022, 08/0 01/2022, 11/23/2014 Colonoscopy Discontinued 08/24/2022 Colorectal Cancer Screening Discontinued Hepatitis C Screening Completed 01/31/2023 CT Colonography Discontinued FIT DNA/Cologuard Discontinued FIT [...] Procedure Name Priority Date/Time Associated Diagnosis Comments CANCELLED CHEMISTRY Routine 04/08/2025 1 0:05 AM EDT GLUCOSE, WHOLE BLOOD Routine 03/04/2025 2:05 PM EDT POCT GLYCATED HEMOGLOBIN, TOTAL Routine 02/03/2025 2:05 PM EDT Prediabetes ALBUMIN, RANDOM URINE W/CREATININE Routine 09/15/2024 9:23 AM EST Type 2 diabetes mellitus without complication, without long-term current use of insulin (CMS/HCC) LIPID PANEL, STANDARD Routine 09/15/2024 9:18 AM EST Type 2 diabetes mellitus without complication, without long-term current use of insulin (CMS/HCC) HEPATITIS C AB W/REFL TO HCV RNA, QN, PCR Routine 01/31/2023 4:01 PM EDT Healthcare maintenance HM COLONOSCOPY Routine 08/24/2022 from Last 3 Months or Most Recently Relevant to Health Maintenance Results * Cancelled Chemistry (04/08/2025 10:05 AM EDT) Cancelled Chemistry SEE NOTE [facility] Comment:THE FOLLOWING TESTS WERE CANCELLED: BMPREASON: Specimen hemolyzed 04/08/2025 10:0 5 AM EDT 04/08/2025 11:31 AM EDT [facility] REMARKETING REP HISTORICAL/NON ORDERABLE LABS Final Result Performing Organization Address [facility] Co de Phone Number [facility] [address] [place] [phone] * Glucose, Whole Blood (03/04/2025 2:05 PM EDT) Pathologist [facility] Glucose, Whole Blood 77 60 - 115 mg/dL [facility] Comment:METER #: [id number] 5Testing performed in the Endocrinology Department [address] , [address], [facility]. 03/04/2025 2:05 PM EDT 03/04/2025 2:08 PM EDT us Generic External Data Provider LAB BLOOD ORDERAB LES Final Result Performing Organization Address [facility] Co de Phone Number [facility] [address] [place] [phone] * POCT HGB A1C (02/03/2025 2:05 PM EDT) Pathologist [facility] Hemoglobin A1C 5.6 4.0 - 6.0 % Blood 02/03/2025 2:05 PM EDT us Lori Santoyo MD POINT OF CARE TEST EN TER/EDIT ORDERABLES Final Result * Albumin, Random Urine W/Creatinine (09/15/2024 9:23 AM EST) Creatinine, Urine 65.58 mg/dL [facility] Microalbumin Urine <5.0 mg/L [facility] Microalbum Creatinine Ratio Ur TNP <30 ug/mg cr [facility] Comment:Unable to calculate albumin/creatinine ratio due to lowmicroalbumin or creatinine result. Urine 09/15/2024 9:23 AM EST 09/15/2024 10:51 AM EST [facility] LAB URINE ORDERABLES Final Re sult Performing Organization Address City/[facility]/ZIP Co de Phone Number [facility] [address] [place] [phone] * Lipid Panel, Standard (09/15/2024 9:18 AM EST) Triglycerides 114 <150 mg/dL [facility] Comment:Desirable Triglyceri de: less than 150 mg/dLBorderline High Triglyceride 150-199 mg/dLHigh Triglyceride: 200-499 mg/dLVery High Triglyceride: greater than or equal to 5OO mg/dL Cholesterol 168 <200 mg/dL [facility] Comment:Desirable Cholestero l: less than 200 mg/dLBorderline High Cholesterol: 200-239 mg/dLHigh Cholesterol: greater than 239 mg/dL LDL Cholesterol Calculated 81 <100 mg/dL [facility] Comment:Desirable LDL: less than 100 mg/dLNear [...] 9:18 AM EST 09/15/2024 10:53 AM EST [facility] LAB BLOOD ORDERABLES Final Re sult Performing Organization Address City/[facility]/ZIP Co de Phone Number [facility] [address] [place] [phone] * Hepatitis C Antibody with Reflex to HCV, RNA, Quantitative, Real-Time PCR (01/31/2023 4:01 PM EDT) Hepatitis C Antibody NON-REACT HERRERA NON-REACT HERRERA [employer] [place] [employer] Index 0.09 <1.00 inSellyt Comment: HCV antibody was non-reactive. There is no laboratory evidence of HCV infection. In most cases, no further action is required. However, if recent HCV exposure is suspected, a test for HCV RNA (test code 54977) is suggested. For additional information please refer to http://education.Symon[employer]/faq/BNL22m7 (This link is being provided for informational/ educational purposes only.) Blood Venous blood specimen / Unknown 01/31/2023 4:01 PM EDT 01/31/2023 4:01 PM EDT [facility] REMARKETING REP LAB BLOOD ORDERABLES Final Re sult [facility] [address], [place] [address] [employer] [place] [employer] [address] [place] [address] * Hm Colonoscopy (08/24/2022) Colonoscopy Normal Normal Comment:[facility] - negative 08/24/2022 Historical Provider HEALTH MAINTENANCE Final Result from Last 3 Months or Most Recently Relevant to Health Maintenance Insurance [employer] MEDICARE REPLACEMENT [facility] Care Teams Job Boss Relationship Specialty Start Date End Date Pat Juan FNP [address] [place] [phone] PCP - General Family Medicine 05/04/22
--- OUTSIDE RECORDS SUMMARY | 2025-05-26 15:47 | XMS_ITS | Clinical Summary ---
Author Organization [address] [facility] Address [address] [place] [address] Phone Care Team Providers Care Lamp Shade Maker Name Role Phone [facility] Primary Care Provider Allergies Active Allergy Reactions [...] Problem Noted Date Diagnosed Date Meningioma, cerebral ([facility] V24, [facility] V28) 07/19/2023 Overview (07/22/2024): Last Assessment [...] headaches which were treated with Fioricet in [place] but she has been unable to obtain it here. I will try again to order it for her from the [facility] pharmacy. Immunizations Name Administration Dates [...] HISTORICAL LITHOTRIPSY OTHER SURGICAL HISTORY 07/31/2023 PROCEDURE: [place] CRNEC TREPHINE BONE FLAP MENINGIOMA SUPRATENTOR; COMMENT: [...] 10/19/2023 Social Influencers of Health Screening 10/19/2023 Diabetes: Annual Urine Albumin-Creatinine Ratio (uACR) 07/28/2024 Diabetes: Blood Sugar Control Test (HGBA1C) 07/28/2024 12/17/2023 Depression Screening 09/24/2024 Diabetes: Annual GFR (Glomerular Filtration Rate) 04/29/2025 04/29/2024 Hypertension/CHF/CAD Annual BMP Blood Test 04/29/2025 04/29/2024 COVID-19 Vaccine ( season) 2025 01/12/2021, 12/15/2020 Influenza Vaccine (#1) 2025 3, 06/22/2022, 08/13/2019, [...] topic Insurance [employer] MEDICARE ADVANTAGE Care Teams Lamp Shade Maker Relationship Specialty Start Date End Date [place] [address] [place] [phone] PCP - General Family Medicine 07/28/24
--- OUTSIDE RECORDS SUMMARY | 2025-05-26 15:47 | XMS_ITS | Encounter Summary ---
Author Organization [employer] Address [address] [facility] [address] [place] [address] Care Team Providers Care Securities Consultant Name Role Phone [facility] Primary Care Provider [phone] Reason for Visit * Reason Onset Date Comments Med Refill 01/21/2024 Encounter Details Date Type Department Care Team ([facility] st Contact Info) Description 01/21/2024 Telephone [facility] [address] [place], [place] [phone] [facility] [address] [place], [place] [phone] Med Refill Social History Tobacco Use Types [...] 11:57 AM EDT Medication was sent to [facility] on 11/26/23 #30 with 2 refills * Telephone Encounter - Eliana Varela - 01/21/2024 11:01 AM EDT TC from pt requesting medication refill. Medications needing refill : mirtazapine (Remeron SolTab) 45 MG disintegrating tablet To be sent to: [facility] at [place], [place] - [address] documented in this encounter Plan of Treatment Upcoming Encounters Date Type Department Care Team (Late st Contact Info) Description 06/29/2025 10:30 AM EDT Office Visit [facility] [address] [place] [address] Pat Juan FNP [address] [place] [address] documented as of this encounter Visit Diagnoses Not on filedocumented in this encounter Additional Health Concerns Assessment Noted Time PHQ-9 Depression Total Score: 7 01/04/20 24 8:14 AM EDT documented as of this encounter Care Teams Securities Consultant Relationship Specialty Start Date End Date Pat Juan FNP [address] [place] [address] PCP - General Family Medicine 05/04/22 documented as of this encounter
--- OUTSIDE RECORDS SUMMARY | 2025-05-26 15:47 | XMS_ITS | Encounter Summary ---
Author Organization [employer] Address [address] [facility] 7t [place] [address] Care Team Providers Care Grocery Associate Name Role Phone [facility] Primary Care Provider [phone] Reason for Visit * Reason Comments Med Refill Encounter Details Date Type Department Care Team ([facility] st Contact Info) Description 04/14/2024 Refill [facility] [address] [place], [place] [phone] [facility] 230 [place], [place] [phone] Depressive disorder Social History Tobacco Use Types [...] Description 06/29/2025 10:30 AM EDT Office Visit [facility] [address] [place] [address] Tall TimbersPat giraldo FNP [address] [place] [address] documented as of this encounter Visit Diagnoses Diagnosis Depressive disorder Depressive disorder, not elsewhere classified documented in this encounter Additional Health Concerns Assessment Noted Time PHQ-9 Depression Total Score: 0 03/19/20 24 8:51 AM EDT documented as of this encounter Care Teams Grocery Associate Relationship Specialty Start Date End Date Pat Juan FNP [address] [place] [address] PCP - General Family Medicine 05/04/22 documented as of this encounter
--- OUTSIDE RECORDS SUMMARY | 2025-05-26 15:47 | XMS_ITS | Encounter Summary ---
Author Organization [employer] Address [address] [facility] 7t [place] [address] Care Team Providers Care Region Manager Name Role Phone Pat Juan [facility] Primary Care Provider [phone] Encounter Details Date Type Department Care Team (Late st Contact Info) Description 04/17/2024 Orders Only [facility] MED[facility] [address] [place], [place] [phone] Lori Werner MD [address] [place], [place] [phone] Social History Tobacco Use Types Packs/Day Years [...] Description 06/29/2025 10:30 AM EDT Office Visit [facility] [address] [place] [address] Pat Juan FNP [address] [place] [address] documented as of this encounter Visit Diagnoses Not on filedocumented in this encounter Additional Health Concerns Assessment Noted Time PHQ-9 Depression Total Score: 0 03/19/20 24 8:51 AM EDT documented as of this encounter Care Teams Region Manager Relationship Specialty Start Date End Date Pat Juan FNP [address] [place] [address] PCP - General Family Medicine 05/04/22 documented as of this encounter
== END ==
LOC: HO.CARD 14:35
PROVIDERS: PCP Registered Nurse; Visit Provider Internal Medicine
DX: R55 Syncope and collapse (principal)
CPT/HCPCS: 93246

== ENCOUNTER → 2025-05-26 14:40 | Outpatient (BNV) | payer MEDICARE, SELFPAY | PROVIDERS: PCP Registered Nurse; Visit Provider Internal Medicine Cardiovascular Disease | DX: I49.1 Atrial premature depolarization (principal) | CPT/HCPCS: 93248 ==

== ENCOUNTER 2025-05-27 14:14 | Outpatient (AMB) | payer MEDICARE, SELFPAY ==
--- NOTE | 2025-05-27 14:17 | A.OFFVIS_ITS ---
Intake Visit Reasons: Right knee pain Intake Note: Hedy is a 74 year old female who presents with complaints of progressively worsening right knee pain. The patient describes her pain as sharp in nature. Most of the pain is along the medial aspect her right knee. She has had cortisone injections in the past which gave her temporary relief. She did have a Durolane viscosupplementation injection given into her right knee last month. That injection gave her no relief. She has failed the last 6 weeks of con servative treatment which has included Tylenol, anti-inflammatory medicines and physical therapy exercises. At this point the patient's right knee pain is interfering with her activities of daily living and her ability to sleep well through the night. Allergies morphine (MORPHINE) Allergy (Unknown, Verified 05/27/25 14:20) RASH Medication List - Last Reconciled 05/27/25 by Terry Hernandes MD abaloparatide (Tymlos) 80 mcg (0.04 mL) subcut DAILY acetaminophen 1,000 mg PO Q6H PRN albuterol sulfate 90 mcg/actuation 2 inhalations inhalation Q4-6H PRN albuterol sulfate 2.5 mg (3 mL) inhalation Q4-6H PRN ascorbate calcium (vitamin C) 1 g PO Q6H atorvastatin 40 mg PO DAILY budesonide-formoterol 160-4.5 mcg/actuation inhalation calcium citrate 500 mg (2 x 250 mg calcium) PO BID 90 days cetirizine 10 mg PO DAILY PRN citalopram 20 mg PO DAILY cyanocobalamin (vitamin B-12) 1,000 mcg PO QAM cyclobenzaprine 10 mg PO TID PRN famotidine 20 mg PO BEDTIME levothyroxine 75 mcg PO DAILY linaclotide (Linzess) 290 mcg PO QAM meloxicam 7.5 mg PO DAILY mirtazapine 45 mg PO BEDTIME montelukast 10 mg PO DAILY multivitamin 1 tab PO DAILY nebulizers As directed olmesartan mg PO pantoprazole 40 mg PO QAM pen needle, diabetic USE DIRECTED WITH TYMLOS propranolol 10 mg PO TID umeclidinium 62.5 mcg/actuation (Incruse Ellipta) 1 inh inhalation DAILY 30 days zolpidem 10 mg PO BEDTIME PRN [facility] Medical History Transaminitis Pulmonary nodules Allergies Kidney stone Back pain Arthritis HLD (hyperlipidemia) Hypothyroidism Diabetes Hypertension Asthma Hyperthyroidism Vitamin D deficiency Primary hyperparathyroidism Postablative hypothyroidism Surgical History History of craniotomy Hx of colonoscopy History of esophagogastroduodenoscopy (EGD) Hx of endoscopy S/P subtotal parathyroidectomy History of carpal tunnel release of both wrists Hx of cataract removal with insertion of prosthetic lens Hx of lithotripsy Hx of cholecystectomy Hx of hysterectomy Family History Father No problems noted. Mother No problems noted. Social History Household Members: Family Are you a primary specialist wound care to a significant other at home: No Do you presently have visiting nurse or other home services: No Alcohol intake: never Patient Tobacco Use Status: Never used Tobacco Physical Exam Const Other: Well-nourished well-developed very friendly female awake alert and oriented x3 in no acute distress Extrem Other: Right knee examination shows a minimal effusion, mild crepitus with range of m otion, tenderness along her medial joint line, positive Jakob's test, no instability Results Reviewed Results Reviewed: Standing full weight-bearing x-rays of the patient's right knee taken previously show mild to moderate diffuse joint space narrowing, no acute bony abnormalities Assessment & Plan Assessment & Plan (1) Tear of medial meniscus of right knee: Code(s): S83.241A - Other tear of medial meniscus, current injury, right knee, initial encounter Category: Medical (2) Right knee pain: Code(s): M25.561 - Pain in right knee Category: Medical Plan Ms. Davis presents with progressively worsening right knee pain due to early degenerative joint disease as well as possible medial meniscus tearing. Thus, I will send the patient for an MRI of her right knee for further evaluation. I will see her back once the MRI is completed to discuss the findings and treatment options. Feel free to call me at any time should questions regarding her orthopedic management arise. I spent 21 minutes in reviewing the patient's records and imaging studies, seeing the patient and documenting in the medical record. Orders: Orders knee RT wo con 05/28/25 S83.241A - Other tear of medial meniscus, current injury, right knee, initial encounter Coding Level of Care Code Est Pt Level 3 (30259) Complex EM visit Add On G2211 Diagnoses Tear of medial meniscus of right knee S83.241A Right knee pain M25.561
--- OUTSIDE RECORDS SUMMARY | 2025-05-27 16:36 | XMS_ITS | Clinical Summary ---
Author Organization [facility] Address [address] [place] [address] Care Team Providers Care Head Cook Name Role Phone Unavailable Primary Care Provider [...] (adult) (1 - 1-dose 75+ series) 2023 [id number] (3 - 2023- season) 2024 021, 12/15/2020 Alcohol and Drug Screen 09/24/2024 Depression Annual Screen 09/24/2024 Imm-Influenza (#1) 2025 08/13/2019, 1 10/07/2016, 06/17/2015, Additional history exists Imm-Pneumococcal 50+ Completed 08/07/2017, 09/02/2015, 09/26/2007 Insurance [employer] [facility]
--- OUTSIDE RECORDS SUMMARY | 2025-05-27 16:36 | XMS_ITS | Encounter Summary ---
Author Organization [employer] Address [address] [facility] 7[address] [place] [address] Care Team Providers Care Camera Technician Name Role Phone [facility] Primary Care Provider [phone] Reason for Visit * Reason Comments Med Refill Encounter Details Date Type Department Care Team ([facility] Contact Info) Description 11/06/2022 Refill [facility] MED & PEDS [address] [place], [place] [phone] [facility] 230 [place], [place] [phone] Depressive disorder Social History Tobacco Use Types [...] Upcoming Encounters Date Type Department Care Team ([facility] Contact Info) Description 06/29/2025 10:30 AM EDT Office Visit [facility] MEDICINE 230 [place], [place] [phone] [facility] [address] [place], [place] [phone] documented as of this encounter Visit Diagnoses Diagnosis Depressive disorder Depressive disorder, not elsewhere classified documented in this encounter Additional Health Concerns Assessment Noted Time PHQ-9 Depression Total Score: 0 10/24/19 23 10:40 AM EST documented as of this encounter Care Teams Camera Technician Relationship Specialty Start Date End Date Pat Juan FNP [address] [place] [phone] PCP - General Family Medicine 05/04/22 documented as of this encounter
--- OUTSIDE RECORDS SUMMARY | 2025-05-27 16:36 | XMS_ITS | Clinical Summary ---
Author Organization [employer] Address [address] [facility] 7t [place] [address] Care Team Providers Care Lead Shop Operator Name Role Phone Pat Juan [facility] Primary Care Provider [phone] Allergies Active Allergy Reactions Criticality Noted Date Comments Morphine Rash Low 03/24/2011 Other reaction(s): Rash Medications * This document contains information received from the source organization and may not represent a complete record from that organization. glucose blood (SosseeTouch Ultra) test strip USE 1 STRIP by [...] 1 Active Blood Glucose Monitoring Suppl (FreeStyle [place] Lite) w/Device kitIndications:Pr ediabetes,Hypogly cemia Use to [...] long-term current use of insulin ([facility]) USE TO TEST BLOOD SUGAR ONCE A DAY 1 kit Active glucose blood (OneTouch Ultra) test stripIndications: Type 2 diabetes mellitus without complication, without long-term current use of insulin ([facility]) USE TO TEST BLOOD SUGAR ONCE A DAY 100 each 5 025 Active OneTouch Delica Lancets 33G miscIndications:T ype 2 diabetes mellitus without complication, without long-term current use of insulin ([facility]) USE TO TEST BLOOD SUGAR [...] tabletIndications :Depression, major, in remission ([facility]) TAKE 1 TABLET BY MOUTH [...] idiopathic constipation 05/05/2023 Overview (05/05/2023): Followed by [facility] [place] [place] GI Linzess Numbness and tingling in left [...] intervention , Patient to reach out to [facility] team as needed, and Patient to engage [...] oxygen 2L PRN albuterol Followed by pulmonology [facility] [place] Assessment & Plan (02/03/2025 4:57 PM EDT): Now stable continue with same interventions Assessment & Plan (10/30/2024 10:58 AM EST): Mild exacerbation due to Covid infection. Increase Symbicort to Que 6 hours prn SOB/cough. FU with Classified Advertising Clerk. Assessment & Plan (08/18/2024 11:43 AM [...] Type Department Care Team Description 05/18/2025 Refill [facility] [address] [place] [address] Olivia Ramirez MD Muscle spasm 05/13/2025 10:30 AM EDT Clinical Support [facility] [address] [place] [address] Rochelle Horn, JACE Primary hypertension 05/13/2025 Refill [facility] [address] [place] [address] [facility] Depressive disorder 05/13/2025 Telephone [facility] [address] [place] [address] Rochelle Horn, RN Blood Pressure Check 05/13/2025 Travel 05/11/2025 Refill [facility] [address] [place] [address] Lori Werner MD Prediabetes; Hypoglycemia 04/30/2025 Telephone [facility] [address] [place] [address] Pat Juan FNP oct recall 04/22/2025 11:00 AM EDT Clinical Support [facility] [address] [place] [address] Nadia Michelle, JACE Primary hypertension 04/22/2025 Refill [facility] [address] [place] [address] Rochelle Horn RN Essential hypertension 04/22/2025 Travel 04/16/2025 Refill [facility] [address] [place] [address] Pat Juan FNP Depressive disorder; Muscle spasm 04/08/2025 10:00 AM EDT Clinical Support [facility] [address] [place] [address] Kristy Alcaraz RN Essential hypertension 04/08/2025 Telephone [facility] [address] [place] [address] Pat Juan FNP Med Refill 04/08/2025 Orders Only [facility] [address] [place] [address] Pat Juan FNP 04/08/2025 Refill [facility] [address] [place] [address] Pat Juan FNP Essential hypertension; Depression, major, in remission ([facility]) 04/08/2025 Travel 04/08/2025 Refill [facility] [place] [place] [address] Pat Juan FNP Depression, major, in remission (CMS/HCC) 03/30/2025 Refill [facility] [address] [place] [address] Pat Juan FNP Tingling of both feet 03/25/2025 11:15 AM EDT Office Visit [facility] [place] [place] [address] Pat Juan FNP Essential hypertension (Primary Dx); Muscle spasm; Dietary counseling; Exercise counseling 03/25/2025 Travel 03/24/2025 Telephone [facility] [address] [place] [address] Pat Juan FNP chart prep 03/20/2025 Refill [facility] [address] [place] [address] [facility] Muscle spasm 03/18/2025 Patient Outreach [facility] [address] [place] [address] [facility] Pre-visit Planning (SDOH screening positive and Tobacco screening negative) 03/16/2025 Refill [facility] [address] [place] [address] [facility] Depressive disorder 03/04/2025 Orders Only GENERIC EXTERNAL [...] Description 06/29/2025 10:30 AM EDT Office Visit [facility] [address] [place], [place] [phone] Pat Juan, CARE ATTENDANT [address] [place] [address] Health Maintenance Due Date Last Done Comments [...] 5 AM EDT 04/08/2025 11:31 AM EDT [facility] CARE ATTENDANT HISTORICAL/NON ORDERABLE LABS Final Result Performing Organization Address [facility] Co de Phone Number [facility] [address] [place] [phone] [phone] * Glucose, Whole Blood (03/04/2025 2:05 PM EDT) Pathologist [facility] Glucose, Whole Blood 77 60 - 115 mg/dL [facility] Comment:METER #: [id number] 5Testing performed in the Endocrinology Department [address] , [address], [facility]. 03/04/2025 2:05 PM EDT 03/04/2025 2:08 PM EDT us Generic External Data Provider LAB BLOOD ORDERAB LES Final Result Performing Organization Address [facility] Co de Phone Number [facility] [address] [place] [phone] * POCT HGB A1C (02/03/2025 2:05 PM EDT) Pathologist [facility] Hemoglobin A1C 5.6 4.0 - 6.0 % Blood 02/03/2025 2:05 PM EDT us Lori Santoyo MD POINT OF CARE TEST EN TER/EDIT ORDERABLES Final Result * Albumin, Random Urine W/Creatinine (09/15/2024 9:23 AM EST) Creatinine, Urine 65.58 mg/dL [facility] Microalbumin Urine <5.0 mg/L [facility] Microalbum Creatinine Ratio Ur TNP <30 ug/mg cr [facility] Comment:Unable to calculate albumin/creatinine ratio due to lowmicroalbumin or creatinine result. Urine 09/15/2024 9:23 AM EST 09/15/2024 10:51 AM EST [facility] LAB URINE ORDERABLES Final Re sult Performing Organization Address City/[facility]/ZIP Co de Phone Number [facility] [address] [place] [phone] * Lipid Panel, Standard (09/15/2024 9:18 AM EST) Triglycerides 114 <150 mg/dL [facility] Comment:Desirable Triglyceri de: less than 150 mg/dLBorderline High Triglyceride 150-199 mg/dLHigh Triglyceride: 200-499 mg/dLVery High Triglyceride: greater than or equal to 5OO mg/dL Cholesterol 168 <200 mg/dL [facility] Comment:Desirable Cholestero l: less than 200 mg/dLBorderline High Cholesterol: 200-239 mg/dLHigh Cholesterol: greater than 239 mg/dL LDL Cholesterol Calculated 81 <100 mg/dL [facility] Comment:Desirable LDL: less than 100 mg/dLNear Optimal/Above Optimal LDL: 110- 129 mg/dLBorderline High LDL: 130-159 mg/dLHigh LDL: 160-189 mg/dLVery High LDL: greater than or equal to 190 mg/dL HDL Cholesterol 65 >40 mg/dL [facility] Comment:Desirable HDL: great er than 40 mg/dL Note: This HDL assay may give artificially low results in patients with liver disease. Blood Venous blood specimen / Unknown 09/15/2024 9:18 AM EST 09/15/2024 10:53 AM EST [facility] LAB BLOOD ORDERABLES Final Re sult Performing Organization Address City/[facility]/ZIP Co de Phone Number [facility] [address] [place] [phone] * Hepatitis C Antibody with Reflex to HCV, RNA, Quantitative, Real-Time PCR (01/31/2023 4:01 PM EDT) Hepatitis C Antibody NON-REACT HERRERA NON-REACT HERRERA [employer] Index 0.09 <1.00 [employer] Comment: HCV antibody was non-reactive. There is no laboratory evidence of HCV infection. In most cases, no further action is required. However, if recent HCV exposure is suspected, a test for HCV RNA (test code 31241) is suggested. For additional information please refer to http://education.[employer]/faq/EVK60o6 (This link is being provided for informational/ educational purposes only.) Blood Venous blood specimen / Unknown 01/31/2023 4:01 PM EDT 01/31/2023 4:01 PM EDT [facility] CARE ATTENDANT LAB BLOOD ORDERABLES Final Re sult [facility] [address], [place] [address] [employer] [address] [place] [address] * Hm Colonoscopy (08/24/2022) Colonoscopy Normal Normal Comment:[facility] - negative 08/24/2022 Historical Provider HEALTH MAINTENANCE Final Result from Last 3 Months or Most Recently Relevant to Health Maintenance Insurance [employer] MEDICARE REPLACEMENT [facility] Care Teams Lead Shop Operator Relationship Specialty Start Date End Date Pat Juan FNP [address] [place] [phone] PCP - General Family Medicine 05/04/22
--- OUTSIDE RECORDS SUMMARY | 2025-05-27 16:36 | XMS_ITS | Encounter Summary ---
Author Organization [employer] Address 75 [facility] 7t [place] [address] Care Team Providers Care Floorworker Lasting Name Role Phone [facility] Primary Care Provider [phone] Reason for Visit * Reason Comments Med Refill Encounter Details Date Type Department Care Team ([facility] st Contact Info) Description 10/15/2024 Refill [facility]INE [address] [place], [place] [phone] [facility] 230 [place], [place] [phone] Depressive disorder Social History Tobacco Use Types [...] Description 06/29/2025 10:30 AM EDT Office Visit [facility] [address] [place] [address] RuffinPat giraldo FNP [address] [place] [address] documented as of this encounter Visit Diagnoses Diagnosis Depressive disorder Depressive disorder, not elsewhere classified documented in this encounter Additional Health Concerns Assessment Noted Time PHQ-9 Depression Total Score: 0 03/19/20 24 8:51 AM EDT documented as of this encounter Care Teams Floorworker Lasting Relationship Specialty Start Date End Date Pat Juan FNP [address] [place] [address] PCP - General Family Medicine 05/04/22 documented as of this encounter
--- OUTSIDE RECORDS SUMMARY | 2025-05-27 16:37 | XMS_ITS | Encounter Summary ---
Author Organization [employer] Address 75 [facility] 7t [place] [address] Care Team Providers Care Biochemist Name Role Phone Pat Juan PILOT CONTROL OPERATOR HELPER Primary Care Provider [phone] Reason for Visit * Reason Onset Date Comments Blood Pressure Check 05/13/2025 Encounter Details Date Type Department Care Team ([facility] st Contact Info) Description 05/13/2025 Telephone [facility] [address] [place], [place] [phone] Rochelle Horn RN [address] [place], [place] [phone] Blood Pressure Check Social History Tobacco Use Types Packs/Day Years [...] encounter Miscellaneous Notes * Telephone Encounter - Rochelle Horn RN - 05/27/2025 3:04 PM EDT TC placed to cardiology at [phone], left message with the home office claims examiner line. Postponing to Sundayin case of no c/b. Direct extension given. * Telephone Encounter - Rochelle Horn RN - 05/13/2025 11:11 AM EDT Pt. Here for BP check x 3 now. Pt. Is taking propranolol 10mg once/day (instead of 3x daily as ordered) and olmesartan 20mg once/day which has been increased twice now. Pt's checks BP at home 3-4 x daily with an extremely wide range, since starting on 20mg the range has been 101/64- 194/107, but the majority of readings have shifted significantly to 110s-120s/ 70s. Pt at [employer] [facility] yesterday 05/12/25 and BP documented as 120/60 (no changes to meds- due for f/up in 3 months). BP today in officewas 172/98. Pt. Reports sometimes feeling off and with blurred vision when BP is high, but not during visit. Pt. Has been hesitant to increase frequency of propranolol due to low readings, and I advised pt. To continue on what she's taking for now. Advised pt. This information would be sent to PCP in case of any need to change plan of care and pt. Would expect a call when you're back in office if needed, otherwise pt. Is scheduled for 06/29/25 documented in this encounter Plan of Treatment Upcoming Encounters Date Type Department Care Team (Late st Contact Info) Description 06/29/2025 10:30 AM EDT Office Visit [facility]INE [address] [place] [address] Pat Juan FNP [address] [place] [address] documented as of this encounter Visit Diagnoses Not on filedocumented in this encounter Additional Health Concerns Assessment Noted Time PHQ-9 Depression Total Score: 0 03/25/20 11:20 AM EDT documented as of this encounter Care Teams Biochemist Relationship Specialty Start Date End Date Pat Juan FNP [address] [place] [address] PCP - General Family Medicine 05/04/22 documented as of this encounter
--- OUTSIDE RECORDS SUMMARY | 2025-05-27 16:37 | XMS_ITS | Encounter Summary ---
Author Organization [employer] Address 75 [facility] 7t [place] [address] Care Team Providers Care Furnace Installer Name Role Phone Pat Juan BABY ATTENDANT Primary Care Provider [phone] Reason for Visit * Reason Comments Med Refill Encounter Details Date Type Department Care Team (Late st Contact Info) Description 10/24/2023 Refill [facility] MEDICINE 230 [place], [place] [phone] Tracee Coulter ANP 230 [place], [place] [phone] Depressive disorder Social History Tobacco Use Types [...] Description 06/29/2025 10:30 AM EDT Office Visit [facility] MED[facility]INE 230 [place] [address] Pat Juan FNP 230 [place] [address] documented as of this encounter Visit Diagnoses Diagnosis Depressive disorder Depressive disorder, not elsewhere classified documented in this encounter Additional Health Concerns Assessment Noted Time PHQ-9 Depression Total Score: 0 07/18/20 23 9:27 AM EDT documented as of this encounter Care Teams Furnace Installer Relationship Specialty Start Date End Date Pat Juan FNP 230 [place] [address] PCP - General Family Medicine 05/04/22 documented as of this encounter
--- OUTSIDE RECORDS SUMMARY | 2025-05-27 16:37 | XMS_ITS | Encounter Summary ---
Author Organization [employer] Address 75 [facility] 7t [place] [address] Care Team Providers Care Cigarette Making Machine Hopper Feeder Name Role Phone [place] [facility] Primary Care Provider Reason for Visit * Reason Comments Med Refill Encounter Details Date Type Department Care Team ([facility] st Contact Info) Description 11/08/2023 Refill [facility] MEDICINE 230 [place], [place] [phone] [facility] 230 [place], [place] [phone] Tingling of both feet Social History Tobacco [...] Description 06/29/2025 10:30 AM EDT Office Visit [facility] MEDICINE 230 [place] [address] Pat Juan FNP 230 [place] [address] documented as of this encounter Visit Diagnoses Diagnosis Tingling of both feet documented in this encounter Additional Health Concerns Assessment Noted Time PHQ-9 Depression Total Score: 13 024 11:25 AM EST documented as of this encounter Care Teams Cigarette Making Machine Hopper Feeder Relationship Specialty Start Date End Date Pat Juan FNP 230 [place] [address] PCP - General Family Medicine 05/04/22 documented as of this encounter
--- OUTSIDE RECORDS SUMMARY | 2025-05-27 16:37 | XMS_ITS | Encounter Summary ---
Author Organization [employer] Address 75 [facility] 7t [place] [address] Care Team Providers Care Adult Care Provider Name Role Phone [facility] Primary Care Provider [phone] Reason for Visit * Reason Comments Med Refill Encounter Details Date Type Department Care Team ([facility] st Contact Info) Description 04/14/2024 Refill [facility] MEDICINE 230 [place], [place] [phone] [facility] 230 [place], [place] [phone] Depressive disorder Social History Tobacco Use Types [...] Description 06/29/2025 10:30 AM EDT Office Visit [facility] MEDICINE 230 [place] [address] BroussardPat giraldo FNP 230 [place] [address] documented as of this encounter Visit Diagnoses Diagnosis Depressive disorder Depressive disorder, not elsewhere classified documented in this encounter Additional Health Concerns Assessment Noted Time PHQ-9 Depression Total Score: 0 03/19/20 24 8:51 AM EDT documented as of this encounter Care Teams Adult Care Provider Relationship Specialty Start Date End Date Pat Juan FNP 230 [place] [address] PCP - General Family Medicine 05/04/22 documented as of this encounter
--- OUTSIDE RECORDS SUMMARY | 2025-05-27 16:37 | XMS_ITS | Encounter Summary ---
Author Organization [employer] Address 75 [facility] 7t [place] [address] Care Team Providers Care Software Program Manager Name Role Phone [place] [facility] Primary Care Provider [phone] Reason for Visit * Reason Onset Date Comments Med Refill 02/29/2024 Encounter Details Date Type Department Care Team ([facility] st Contact Info) Description 02/29/2024 Telephone [facility] MEDICINE 230 [place], [place] [phone] [facility] 230 [place], [place] [phone] Med Refill Social History Tobacco Use Types [...] 10 MG tablet To be sent to: [facility] [place], [place] - [address] documented in this encounter Plan of Treatment Upcoming Encounters Date Type Department Care Team (Late st Contact Info) Description 06/29/2025 10:30 AM EDT Office Visit [facility] MEDICINE 230 [place] [address] Pat Juan FNP 230 [place] [address] documented as of this encounter Visit Diagnoses Not on filedocumented in this encounter Additional Health Concerns Assessment Noted Time PHQ-9 Depression Total Score: 7 01/04/20 24 8:14 AM EDT documented as of this encounter Care Teams Software Program Manager Relationship Specialty Start Date End Date Pat Juan FNP 230 [place] [address] PCP - General Family Medicine 05/04/22 documented as of this encounter
--- OUTSIDE RECORDS SUMMARY | 2025-05-27 16:37 | XMS_ITS | Encounter Summary ---
Author Organization [employer] Address 75 [facility] 7t [place] [address] Care Team Providers Care Wireless Technician Name Role Phone Pat Juan GIS SPECIALIST Primary Care Provider [phone] Encounter Details Date Type Department Care Team (Late st Contact Info) Description 08/09/2023 Abstract [facility] 230 [place], [place] [phone] Rhina Diez Social History Tobacco Use Types [...] 10:30 AM EDT Office Visit [facility] 230 [place] [address] Pat Juan FNP 230 [place] [address] documented as of this encounter Visit Diagnoses Not on filedocumented in this encounter Additional Health Concerns Assessment Noted Time PHQ-9 Depression Total Score: 0 07/18/20 23 9:27 AM EDT documented as of this encounter Care Teams Wireless Technician Relationship Specialty Start Date End Date Pat Juan FNP [address] [place] [address] PCP - General Family Medicine 05/04/22 documented as of this encounter
--- OUTSIDE RECORDS SUMMARY | 2025-05-27 16:37 | XMS_ITS | Patient Health Record ---
Author Organization [employer] Address [address] [place] [address] Care Team Providers Care Bingo Caller Name Role Phone Pedro Luis Duvall Unavailable [phone] Reason For Referral No Information Plan Of Treatment No Information
--- OUTSIDE RECORDS SUMMARY | 2025-05-27 16:37 | XMS_ITS | Encounter Summary ---
Author Organization [employer] Address 75 [facility] 7t [place] [address] Care Team Providers Care Systems Checkout Mechanic Name Role Phone Pat Juan BIT GATHERER Primary Care Provider [phone] Encounter Details Date Type Department Care Team (Late st Contact Info) Description 04/17/2024 Orders Only [facility] MEDICINE 230 [place], [place] [phone] Lori Werner MD 230 [place], [place] [phone] Social History Tobacco Use Types Packs/Day Years [...] Description 06/29/2025 10:30 AM EDT Office Visit [facility] MEDICINE 230 [place] [address] Pat Juan FNP 230 [place] [address] documented as of this encounter Visit Diagnoses Not on filedocumented in this encounter Additional Health Concerns Assessment Noted Time PHQ-9 Depression Total Score: 0 03/19/20 24 8:51 AM EDT documented as of this encounter Care Teams Systems Checkout Mechanic Relationship Specialty Start Date End Date Pat Juan FNP 230 [place] [address] PCP - General Family Medicine 05/04/22 documented as of this encounter
--- OUTSIDE RECORDS SUMMARY | 2025-05-27 16:37 | XMS_ITS | Clinical Summary ---
Author Organization [address] [facility] Address 175 [place] [address] Phone Care Team Providers Care Dispatcher Motor Vehicle Name Role Phone [facility] Primary Care Provider [phone] Allergies Active Allergy Reactions Criticality Noted Date [...] Problem Noted Date Diagnosed Date Meningioma, cerebral ([facility] V24, [facility] V28) 07/19/2023 Overview (07/22/2024): Last Assessment & [...] headaches which were treated with Fioricet in [place] but she has been unable to obtain it here. I will try again to order it for her from the [facility] pharmacy. Immunizations Name Administration Dates Next Due [...] HISTORICAL LITHOTRIPSY OTHER SURGICAL HISTORY 07/31/2023 PROCEDURE: [place] CRNEC TREPHINE BONE FLAP MENINGIOMA SUPRATENTOR; COMMENT: [...] topic Insurance [employer] MEDICARE ADVANTAGE Care Teams Dispatcher Motor Vehicle Relationship Specialty Start Date End Date [place] [address] [place] [address] PCP - General Family Medicine 07/28/24
--- OUTSIDE RECORDS SUMMARY | 2025-05-27 16:37 | XMS_ITS | Encounter Summary ---
Author Organization [employer] Address 75 [facility] 7t [place] [address] Care Team Providers Care Braid Maker Name Role Phone [place] [facility] Primary Care Provider [phone] Reason for Visit * Reason Onset Date Comments Med Refill 04/08/2025 Encounter Details Date Type Department Care Team ([facility] st Contact Info) Description 04/08/2025 Telephone [facility] MEDICINE 230 [place], [place] [phone] [facility] 230 [place], [place] [phone] Med Refill Social History Tobacco Use Types [...] MG disintegrating tablet To be sent to: [facility] [place], [place] - [address] documented in this encounter Plan of Treatment Upcoming Encounters Date Type Department Care Team (Late st Contact Info) Description 06/29/2025 10:30 AM EDT Office Visit [facility] MEDICINE 230 [place] [address] Haw RiverPat giraldo FNP 230 [place] [address] documented as of this encounter Visit Diagnoses Not on filedocumented in this encounter Additional Health Concerns Assessment Noted Time PHQ-9 Depression Total Score: 0 03/25/20 25 11:20 AM EDT documented as of this encounter Care Teams Braid Maker Relationship Specialty Start Date End Date Pat Juan FNP [address] [place] [address] PCP - General Family Medicine 05/04/22 documented as of this encounter
--- OUTSIDE RECORDS SUMMARY | 2025-05-27 16:37 | XMS_ITS | Encounter Summary ---
Author Organization [employer] Address 75 [facility] 7t [place] [address] Care Team Providers Care Observatory Director Name Role Phone [place] [facility] Primary Care Provider [phone] Reason for Visit * Reason Comments Med Refill Encounter Details Date Type Department Care Team ([facility] st Contact Info) Description 02/21/2024 Refill [facility] MEDICINE 230 [place], [place] [phone] [facility] 230 [place], [place] [phone] Depressive disorder Social History Tobacco Use Types [...] Description 06/29/2025 10:30 AM EDT Office Visit [facility] MEDICINE 230 [place] [address] Pat Juan FNP 230 [place] [address] documented as of this encounter Visit Diagnoses Diagnosis Depressive disorder Depressive disorder, not elsewhere classified documented in this encounter Additional Health Concerns Assessment Noted Time PHQ-9 Depression Total Score: 7 01/04/20 24 8:14 AM EDT documented as of this encounter Care Teams Observatory Director Relationship Specialty Start Date End Date Pat Juan FNP [address] [place] [address] PCP - General Family Medicine 05/04/22 documented as of this encounter
--- OUTSIDE RECORDS SUMMARY | 2025-05-27 16:37 | XMS_ITS | Encounter Summary ---
Author Organization [employer] Address 75 [facility] 7t [place] [address] Care Team Providers Care Educational Institution Curator Name Role Phone [facility] Primary Care Provider [phone] Reason for Visit * Reason Comments Med Refill Encounter Details Date Type Department Care Team ([facility] st Contact Info) Description 12/06/2023 Refill [facility] MEDICINE 230 [place], [place] [phone] [facility] 230 [place], [place] [phone] Depressive disorder Social History Tobacco Use Types [...] 10:30 AM EDT Office Visit [facility] MEDICINE 230 [place] [address] Pat Juan FNP 230 [place] [address] documented as of this encounter Visit Diagnoses Diagnosis Depressive disorder Depressive disorder, not elsewhere classified documented in this encounter Additional Health Concerns Assessment Noted Time PHQ-9 Depression Total Score: 13 024 11:25 AM EST documented as of this encounter Care Teams Educational Institution Curator Relationship Specialty Start Date End Date Pat Juan FNP [address] [place] [address] PCP - General Family Medicine 05/04/22 documented as of this encounter
--- OUTSIDE RECORDS SUMMARY | 2025-05-27 16:37 | XMS_ITS | Encounter Summary ---
Author Organization [employer] Address 75 [facility] 7t [place] [address] Care Team Providers Care Director Of Curriculum And Instruction Name Role Phone [facility] Primary Care Provider [phone] Reason for Visit * Reason Comments Med Refill Encounter Details Date Type Department Care Team ([facility] st Contact Info) Description 01/02/2024 Refill [facility] MEDICINE 230 [place], [place] [phone] [facility] 230 [place], [place] [phone] Tingling of both feet; Depressive disorder Social [...] awful might happen 1 01/04/2024 8:15 AM Joe Rosario HERACLIO-7 Total Score 5 01/04/2024 8:15 [...] EDT Office Visit [facility] MEDICINE 230 [place], [place] [phone] ArtPat, [facility] 230 [place] [address] documented as of this encounter Visit Diagnoses Diagnosis Tingling of both feet Depressive disorder Depressive disorder, not elsewhere classified documented in this encounter Additional Health Concerns Assessment Noted Time PHQ-9 Depression Total Score: 0 12/17/19 24 9:18 AM EDT documented as of this encounter Care Teams Director Of Curriculum And Instruction Relationship Specialty Start Date End Date Drake CARLOS Stewart [address] [place] [address] PCP - General Family Medicine 05/04/22 documented as of this encounter
--- OUTSIDE RECORDS SUMMARY | 2025-05-27 16:37 | XMS_ITS | Encounter Summary ---
Author Organization [employer] Address 75 [facility] 7t [place] [address] Care Team Providers Care Freight Car Cleaner Name Role Phone [place] [facility] Primary Care Provider [phone] Reason for Visit * Reason Onset Date Comments Med Refill 01/21/2024 Encounter Details Date Type Department Care Team ([facility] st Contact Info) Description 01/21/2024 Telephone [facility] MEDICINE 230 [place], [place] [phone] [facility] 230 [place], [place] [phone] Med Refill Social History Tobacco Use Types [...] encounter Miscellaneous Notes * Telephone Encounter - Cytnhia Crespo LPN - 01/21/2024 11:57 AM EDT Medication was sent to [facility] on 11/26/23 #30 with 2 refills * Telephone Encounter - Elinaa Varela - 01/21/2024 11:01 AM EDT TC from pt requesting medication refill. Medications needing refill : mirtazapine (Remeron SolTab) 45 MG disintegrating tablet To be sent to: [facility] at [place], [place] - [address] documented in this encounter Plan of Treatment Upcoming Encounters Date Type Department Care Team (Late st Contact Info) Description 06/29/2025 10:30 AM EDT Office Visit [facility] MEDICINE 230 [place] [address] Pat Juan FNP 230 [place] [address] documented as of this encounter Visit Diagnoses Not on filedocumented in this encounter Additional Health Concerns Assessment Noted Time PHQ-9 Depression Total Score: 7 01/04/20 24 8:14 AM EDT documented as of this encounter Care Teams Freight Car Cleaner Relationship Specialty Start Date End Date Pat Juan FNP 230 [place] [address] PCP - General Family Medicine 05/04/22 documented as of this encounter
== END 2025-05-27 14:31 | disposition home or self-care (01) ==
LOC: HO.HOS 14:15
PROVIDERS: Visit Provider Orthopaedic Surgery
DX: S83.241A Other tear of medial meniscus, current injury, right knee, initial encounter (principal); M25.561 Pain in right knee
CPT/HCPCS: 99213; G2211

== ENCOUNTER → 2025-05-27 14:14 | Outpatient (BNVA) | payer MEDICARE, SELFPAY | PROVIDERS: Visit Provider Orthopaedic Surgery | DX: S83.241A Other tear of medial meniscus, current injury, right knee, initial encounter (principal); X58.XXXA Exposure to other specified factors, initial encounter; Y93.9 Activity, unspecified; Y92.9 Unspecified place or not applicable; Y99.9 Unspecified external cause status | CPT/HCPCS: 99212 ==

== ENCOUNTER 2025-05-29 12:53 | Outpatient (AMB) | payer MEDICARE, SELFPAY ==
--- OUTSIDE RECORDS SUMMARY | 2025-05-29 13:06 | XMS_ITS | Encounter Summary ---
Author Organization [employer] Address 75 [facility] 7t [place] [address] Care Team Providers Care Cae Engineer Name Role Phone [facility] Primary Care Provider [phone] Reason for Visit * Reason Comments Med Refill Encounter Details Date Type Department Care Team ([facility] Contact Info) Description 11/06/2022 Refill [facility] [address] [place], [place] [phone] [facility] 230 [place], [place] [phone] Depressive disorder Social History Tobacco Use Types [...] Upcoming Encounters Date Type Department Care Team ([facility] Contact Info) Description 06/29/2025 10:30 AM EDT Office Visit [facility] MEDICINE 230 [place], [place] [phone] [facility] 230 [place], [place] [phone] documented as of this encounter Visit Diagnoses Diagnosis Depressive disorder Depressive disorder, not elsewhere classified documented in this encounter Additional Health Concerns Assessment Noted Time PHQ-9 Depression Total Score: 0 10/24/19 23 10:40 AM EST documented as of this encounter Care Teams Cae Engineer Relationship Specialty Start Date End Date Pat Juan FNP [address] [place] [address] PCP - General Family Medicine 05/04/22 documented as of this encounter
--- OUTSIDE RECORDS SUMMARY | 2025-05-29 13:06 | XMS_ITS | Clinical Summary ---
Author Organization [facility] Address [address] [place] [address] Care Team Providers Care Admitting Supervisor Name Role Phone Unavailable Primary Care Provider [...] (adult) (1 - 1-dose 75+ series) 2023 Alcohol and Drug Screen 09/24/2024 Depression Annual Screen 09/24/2024 Ahf-[id number]-48 (3 - 2024- season) 2025 021, 12/15/2020 Imm-Influenza (#1) 2025 08/13/2019, 1 10/07/2016, 06/17/2015, Additional history exists Imm-Pneumococcal 50+ Completed 08/07/2017, 09/02/2015, 09/26/2007 Insurance [facility] HEALTH SAF[employer]Y NET
--- OUTSIDE RECORDS SUMMARY | 2025-05-29 13:07 | XMS_ITS | Encounter Summary ---
Author Organization [employer] Address [address] [facility] 7t [place] [address] Care Team Providers Care Director Of Sales Marketing Name Role Phone Pat Juan BRAND REPRESENTATIVE Primary Care Provider [phone] Reason for Visit * Reason Comments Med Refill Encounter Details Date Type Department Care Team ([facility] st Contact Info) Description 05/29/2025 Refill [facility] MEDICINE 230 [place], [place] [phone] Lori Werner MD 230 [place], [place] [phone] Social History Tobacco Use Types Packs/Day Years [...] Description 06/29/2025 10:30 AM EDT Office Visit [facility] MEDICINE 230 [place] [address] Pat Juan [facility] 230 [place] [address] documented as of this encounter Visit Diagnoses Not on filedocumented in this encounter Additional Health Concerns Assessment Noted Time PHQ-9 Depression Total Score: 0 03/25/20 25 11:20 AM EDT documented as of this encounter Care Teams Director Of Sales Marketing Relationship Specialty Start Date End Date Pat Juan FNP 230 [place] [address] PCP - General Family Medicine 05/04/22 documented as of this encounter
--- OUTSIDE RECORDS SUMMARY | 2025-05-29 13:07 | XMS_ITS | Encounter Summary ---
Author Organization [employer] Address 75 [facility] 7t [place] [address] Care Team Providers Care Half Section Ironer Name Role Phone [place] [facility] Primary Care Provider [phone] Reason for Visit * Reason Comments Med Refill Encounter Details Date Type Department Care Team ([facility] st Contact Info) Description 11/08/2023 Refill [facility] MEDICINE 230 [place], [place] [phone] [facility] 230 [place], [place] [phone] Tingling of both feet Social History Tobacco [...] Description 06/29/2025 10:30 AM EDT Office Visit [facility] MEDICINE 230 [place] [address] Pat Juan FNP 230 [place] [address] documented as of this encounter Visit Diagnoses Diagnosis Tingling of both feet documented in this encounter Additional Health Concerns Assessment Noted Time PHQ-9 Depression Total Score: 13 024 11:25 AM EST documented as of this encounter Care Teams Half Section Ironer Relationship Specialty Start Date End Date Pat Juan FNP 230 [place] [address] PCP - General Family Medicine 05/04/22 documented as of this encounter
--- OUTSIDE RECORDS SUMMARY | 2025-05-29 13:07 | XMS_ITS | Encounter Summary ---
Author Organization [employer] Address [address] [facility] 7t [place] [address] Care Team Providers Care Stapling Machine Operator Name Role Phone [place] [facility] Primary Care Provider [phone] Reason for Visit * Reason Comments Med Refill Encounter Details Date Type Department Care Team ([facility] st Contact Info) Description 02/21/2024 Refill [facility] MEDICINE 230 [place], [place] [phone] [facility] 230 [place], [place] [phone] Depressive disorder Social History Tobacco Use Types [...] Description 06/29/2025 10:30 AM EDT Office Visit [facility] MEDICINE 230 [place] [address] Pat Juan FNP 230 [place] [address] documented as of this encounter Visit Diagnoses Diagnosis Depressive disorder Depressive disorder, not elsewhere classified documented in this encounter Additional Health Concerns Assessment Noted Time PHQ-9 Depression Total Score: 7 01/04/20 24 8:14 AM EDT documented as of this encounter Care Teams Stapling Machine Operator Relationship Specialty Start Date End Date Pat Juan FNP [address] [place] [address] PCP - General Family Medicine 05/04/22 documented as of this encounter
--- OUTSIDE RECORDS SUMMARY | 2025-05-29 13:07 | XMS_ITS | Encounter Summary ---
Author Organization [employer] Address [address] [facility] 7t [place] [address] Care Team Providers Care Corporate Strategy Associate Name Role Phone [place] Primary Care Provider [phone] Reason for Visit * Reason Onset Date Comments Med Refill 02/29/2024 Encounter Details Date Type Department Care Team ([facility] st Contact Info) Description 02/29/[address] [facility] MEDICINE 230 [place], [place] [phone] [facility] 230 [place], [place] [phone] Med Refill Social History Tobacco Use Types [...] 10 MG tablet To be sent to: [facility] at [place], [place] - [address] documented in this encounter Plan of Treatment Upcoming Encounters Date Type Department Care Team (Late st Contact Info) Description 06/29/2025 10:30 AM EDT Office Visit [facility] MEDICINE 230 [place] [address] Pat Juan FNP 230 [place] [address] documented as of this encounter Visit Diagnoses Not on filedocumented in this encounter Additional Health Concerns Assessment Noted Time PHQ-9 Depression Total Score: 7 01/04/20 24 8:14 AM EDT documented as of this encounter Care Teams Corporate Strategy Associate Relationship Specialty Start Date End Date Pat Juan FNP 230 [place] [address] PCP - General Family Medicine 05/04/22 documented as of this encounter
--- OUTSIDE RECORDS SUMMARY | 2025-05-29 13:07 | XMS_ITS | Encounter Summary ---
Author Organization [employer] Address 75 [facility] 7t [place] [address] Care Team Providers Care Chainstitch Pants Outseamer Name Role Phone Pat Juan CHILD SUPPORT AGENT Primary Care Provider [phone] Reason for Visit * Reason Comments Med Refill Encounter Details Date Type Department Care Team (Late st Contact Info) Description 10/24/2023 Refill [facility] [address] [place], [place] [phone] Tracee Coulter ANP [address] [place], [place] [phone] Depressive disorder Social History Tobacco Use Types [...] Office Visit [facility] [address] [place] [address] Pat Juan FNP [address] [place] [address] documented as of this encounter Visit Diagnoses Diagnosis Depressive disorder Depressive disorder, not elsewhere classified documented in this encounter Additional Health Concerns Assessment Noted Time PHQ-9 Depression Total Score: 0 07/18/20 23 9:27 AM EDT documented as of this encounter Care Teams Chainstitch Pants Outseamer Relationship Specialty Start Date End Date Pat Juan FNP [address] [place] [address] PCP - General Family Medicine 05/04/22 documented as of this encounter
--- OUTSIDE RECORDS SUMMARY | 2025-05-29 13:07 | XMS_ITS | Encounter Summary ---
Author Organization [employer] Address 75 [facility] 7t [place] [address] Care Team Providers Care Toolman Name Role Phone [facility] Primary Care Provider [phone] Reason for Visit * Reason Comments Med Refill Encounter Details Date Type Department Care Team ([facility] st Contact Info) Description 12/06/2023 Refill [facility] MEDICINE [address] [place], [place] [phone] [facility] 230 [place], [place] [phone] Depressive disorder Social History Tobacco Use Types [...] Description 06/29/2025 10:30 AM EDT Office Visit [facility] MEDICINE [address] [place] [address] Pat Juan FNP [address] [place] [address] documented as of this encounter Visit Diagnoses Diagnosis Depressive disorder Depressive disorder, not elsewhere classified documented in this encounter Additional Health Concerns Assessment Noted Time PHQ-9 Depression Total Score: 13 024 11:25 AM EST documented as of this encounter Care Teams Toolman Relationship Specialty Start Date End Date Pat Juan FNP [address] [place] [address] PCP - General Family Medicine 05/04/22 documented as of this encounter
--- OUTSIDE RECORDS SUMMARY | 2025-05-29 13:07 | XMS_ITS | Clinical Summary ---
Author Organization [employer] Address 75 [facility] 7t [place] [address] Care Team Providers Care Elder Assistant Name Role Phone Pat Juan [facility] Primary Care Provider [phone] Allergies Active Allergy Reactions Criticality Noted Date Comments Morphine Rash Low 03/24/2011 Other reaction(s): Rash Medications * This document contains information received from the source organization and may not represent a complete record from that organization. glucose blood ([place] [employer] TechnologyTouch Ultra) test strip USE 1 STRIP by [...] 1 Active Blood Glucose Monitoring Suppl (FreeStyle [place] Lite) w/Device kitIndications:Pr ediabetes,Hypogly cemia Use to [...] complication, without long-term current use of insulin ([facility]) USE TO TEST BLOOD SUGAR ONCE A DAY 1 kit Active glucose blood (OneTouch Ultra) test stripIndications: Type 2 diabetes mellitus without complication, without long-term current use of insulin ([facility]) USE TO TEST BLOOD SUGAR ONCE A DAY 100 each 5 025 Active OneTouch Delica Lancets 33G miscIndications:T ype 2 diabetes mellitus without complication, without long-term current use of insulin ([facility]) USE TO TEST BLOOD SUGAR ONCE [...] MG disintegrating tabletIndications :Depression, major, in remission ([facility]) TAKE 1 TABLET BY MOUTH DAILY [...] idiopathic constipation 05/05/2023 Overview (05/05/2023): Followed by [facility] GI Linzess Numbness and tingling in left [...] intervention , Patient to reach out to [facility] team as needed, and Patient to [...] oxygen 2L PRN albuterol Followed by pulmonology [facility] Assessment & Plan (02/03/2025 4:57 PM EDT): Now stable continue with same interventions Assessment & Plan (10/30/2024 10:58 AM EST): Mild exacerbation due to Covid infection. Increase Symbicort to Que 6 hours prn SOB/cough. FU with [employer]. Assessment & Plan (08/18/2024 11:43 AM EST): [...] support system PLAN: 1. Follow up with [facility]: Recommended for follow-up: 07/31 @ 10am 2. Patient goal is to continue controlling symptoms. 3. Behavioral Recommendations a. F/u in 2 weeks. b. Continue use of coping skills Hyperkalemia 02/20/2018 10/24/2022 Encounters Date Type Department Care Team Description 05/29/2025 Refill [facility] MEDICINE [address] [place] [address] Lori Werner MD 05/18/2025 Refill [facility] [address] [place] [address] Olivia Ramirez MD Muscle spasm 05/13/2025 10:30 AM EDT Clinical Support [facility] [address] [place] [address] Rochelle Horn, JACE Primary hypertension 05/13/2025 Refill [facility] [address] [place] [address] Pat Juan, CARLOS Depressive disorder 05/13/2025 Telephone [facility] [address] [place] [address] Rochelle Horn, RN Blood Pressure Check 05/13/2025 Travel 05/11/2025 Refill [facility] [address] [place] [address] Lori Werner MD Prediabetes; Hypoglycemia 04/30/2025 Telephone [facility] [address] [place], [place] [address] Pat Juan FNP oct recall 04/22/2025 11:00 AM EDT Clinical Support [facility] [address] [place] [address] Nadia Michelle, RN Primary hypertension 04/22/2025 Refill [facility] [address] [place] [address] Rochelle Horn RN Essential hypertension 04/22/2025 Travel 04/16/2025 Refill [facility] [address] [place] [place], [place] [address] Pat Juan FNP Depressive disorder; Muscle spasm 04/08/2025 10:00 AM EDT Clinical Support [facility] [address] [place] [address] Kristy Alcaraz, JACE Essential hypertension 04/08/2025 Telephone [facility] [address] [place] [address] Pat Juan FNP Med Refill 04/08/2025 Orders Only [facility] [address] [place] [address] Pat Juan [facility] 04/08/2025 Refill [facility] [address] [place] [address] Pat Juan FNP Essential hypertension; Depression, major, in remission (CMS/HCC) 04/08/2025 Travel 04/08/2025 Refill [facility] [address] [place] [address] Pat Juan FNP Depression, major, in remission (CMS/HCC) 03/30/2025 Refill [facility] [address] [place] [address] Pat Juan FNP Tingling of both feet 03/25/2025 11:15 AM EDT Office Visit [facility] [address] [place] [address] Pat Juan FNP Essential hypertension (Primary Dx); Muscle spasm; Dietary counseling; Exercise counseling 03/25/2025 Travel 03/24/2025 Telephone [facility] [place] [address] DrakePat FNP chart prep 03/20/2025 Refill [facility] [address] [facility] [place] [address] Pat Juan FNP Muscle spasm 03/18/2025 Patient Outreach [facility] [address] [place] [address] Pat Juan FNP Pre-visit Planning (SDOH screening positive and Tobacco screening negative) 03/16/2025 Refill [facility] [address] [facility] [place] [address] DrakePat FNP Depressive disorder 03/04/2025 Orders Only GENERIC EXTERNAL [...] Description 06/29/2025 10:30 AM EDT Office Visit [facility] [address] [place] [address] Drake, Pat, CLIMATE CHANGE ANALYST 230 [place], [place] [phone] Health Maintenance Due Date Last Done Comments Alcohol/Substance Use Screening 1962 Eye Exam 09/24/2023 09/24/2021 RSV Patients and Patients Aged 60 years or older (1 - 1-dose 75+ series) 2023 Diabetes: Foot Exam 03/19/2025 03/19/2024, 03/19/2024, 03/19/2024, Additional history exists COVID-19 Vaccine ( season) 2025 01/12/2021, 12/15/2020 Influenza Vaccine (#1) 2025 , 06/08/2023, 06/08/2023, Additional history exists Diabetes: Hemoglobin A1C 08/06/202502/03/ 025, 08/18/2024, 12/17/2023, Additional history exists Diabetes: Urine Protein Screening 09/15/2025 09/15/2024, 05/22/2022 Lipid Panel 09/15/2025 09/15/2024, 05/1 , 05/22/2022 SDOH Screening 03/18/2026 03/18/2025 Depression Screening 03/25/2026 03/25/2025, 03/25/20 25 Tobacco Screening 03/31/2026 03/31/2025 DTaP/Tdap/Td Vaccines (3 [...] 10:05 AM EDT) Cancelled Chemistry SEE NOTE [facility] Comment:THE FOLLOWING TESTS WERE CANCELLED: BMPREASON: Specimen hemolyzed 04/08/2025 10:0 5 AM EDT 04/08/2025 11:31 AM EDT [facility] CLIMATE CHANGE ANALYST HISTORICAL/NON ORDERABLE LABS Final Result Performing Organization Address [facility] Co de Phone Number [facility] [address] [place] [address] [phone] * Glucose, Whole Blood (03/04/2025 2:05 PM EDT) Glucose, Whole Blood 77 60 - 115 mg/dL [facility] Comment:METER #: [id number] 5Testing performed in the Endocrinology Department [address] , [address], [facility]. 03/04/2025 2:05 PM EDT 03/04/2025 2:08 PM EDT Generic External Data Provider LAB BLOOD ORDERAB LES Final Result Performing Organization Address [facility]/ZIP Co de Phone Number [facility] [address] [place] [address] [phone] * POCT HGB A1C (02/03/2025 2:05 PM EDT) Hemoglobin A1C 5.6 4.0 - 6.0 % Blood 02/03/2025 2:05 PM EDT us Lori Santoyo MD POINT OF CARE TEST EN TER/EDIT ORDERABLES Final Result * Albumin, Random Urine W/Creatinine (09/15/2024 9:23 AM EST) Creatinine, Urine 65.58 mg/dL [facility] Microalbumin Urine <5.0 mg/L [facility] Microalbum Creatinine Ratio Ur TNP <30 ug/mg cr [facility] Comment:Unable to calculate albumin/creatinine ratio due to lowmicroalbumin or creatinine result. Urine 09/15/2024 9:23 AM EST 09/15/2024 10:51 AM EST [facility] LAB URINE ORDERABLES Final Re sult Performing Organization Address [facility] Co de Phone Number [facility] [address] [place] [phone] * Lipid Panel, Standard (09/15/2024 9:18 AM EST) Triglycerides 114 <150 mg/dL [facility] Comment:Desirable Triglyceri de: less than 150 mg/dLBorderline High Triglyceride 150-199 mg/dLHigh Triglyceride: 200-499 mg/dLVery High Triglyceride: greater than or equal to 5OO mg/dL Cholesterol 168 <200 mg/dL [facility] Comment:Desirable Cholestero l: less than 200 mg/dLBorderline High Cholesterol: 200-239 mg/dLHigh Cholesterol: greater than 239 mg/dL LDL Cholesterol Calculated 81 <100 mg/dL [facility] Comment:Desirable LDL: less than 100 mg/dLNear Optimal/Above Optimal LDL: 110- 129 mg/dLBorderline High LDL: 130-159 mg/dLHigh LDL: 160-189 mg/dLVery High LDL: greater than or equal to 190 mg/dL HDL Cholesterol 65 >40 mg/dL [facility] Comment:Desirable HDL: great er than 40 mg/dL Note: This HDL assay may give artificially low results in patients with liver disease. Blood Venous blood specimen / Unknown 09/15/2024 9:18 AM EST 09/15/2024 10:53 AM EST [facility] LAB BLOOD ORDERABLES Final Re sult Performing Organization Address City/[facility]/ZIP Co de Phone Number [facility] [address] [place] [address] [phone] * Hepatitis C Antibody with Reflex to HCV, RNA, Quantitative, Real-Time PCR (01/31/2023 4:01 PM EDT) Hepatitis C Antibody NON-REACT HERRERA NON-REACT HERRERA [facility] Index 0.09 <1.00 [facility] Comment: HCV antibody was non-reactive. There is no laboratory evidence of HCV infection. In most cases, no further action is required. However, if recent HCV exposure is suspected, a test for HCV RNA (test code 11447) is suggested. For additional information please refer to http://education.Tellwiki/faq/DPI84n0 (This link is being provided for informational/ educational purposes only.) Blood Venous blood specimen / Unknown 01/31/2023 4:01 PM EDT 01/31/2023 4:01 PM EDT [facility] CLIMATE CHANGE ANALYST LAB BLOOD ORDERABLES Final Re sult [facility] [address], [place] [address] [facility] [address] [place] [address] * Hm Colonoscopy (08/24/2022) Colonoscopy Normal Normal Comment:[facility] - negative 08/24/2022 Historical Provider HEALTH MAINTENANCE Final Result from Last 3 Months or Most Recently Relevant to Health Maintenance Insurance AETNA MEDICARE REPLACEMENT [facility] PARTIAL Care Teams Elder Assistant Relationship Specialty Start Date End Date Pat Juan FNP [address] [place] [address] PCP - General Family Medicine 05/04/22
--- OUTSIDE RECORDS SUMMARY | 2025-05-29 13:07 | XMS_ITS | Encounter Summary ---
Author Organization [employer] Address 75 [facility] 7t [place] [address] Care Team Providers Care Instructor Physical Education Name Role Phone [place] [facility] Primary Care Provider [phone] Reason for Visit * Reason Onset Date Comments Med Refill 04/08/2025 Encounter Details Date Type Department Care Team ([facility] st Contact Info) Description 04/08/2025 Telephone [facility] MEDICINE 230 [place], [place] [phone] [facility] 230 [place], [place] [phone] Med Refill Social History Tobacco Use Types [...] MG disintegrating tablet To be sent to: [facility] [place] [place] - [address] documented in this encounter Plan of Treatment Upcoming Encounters Date Type Department Care Team (Late st Contact Info) Description 06/29/2025 10:30 AM EDT Office Visit [facility] MEDICINE [address] [place] [address] SardisPat giraldo FNP [address] [place] [address] documented as of this encounter Visit Diagnoses Not on filedocumented in this encounter Additional Health Concerns Assessment Noted Time PHQ-9 Depression Total Score: 0 03/25/20 25 11:20 AM EDT documented as of this encounter Care Teams Instructor Physical Education Relationship Specialty Start Date End Date Pat Juan FNP [address] [place] [address] PCP - General Family Medicine 05/04/22 documented as of this encounter
--- OUTSIDE RECORDS SUMMARY | 2025-05-29 13:07 | XMS_ITS | Patient Health Record ---
Author Organization [employer] Address [address] [place] [address] Care Team Providers Care Scooping Machine Tender Name Role Phone Pedro Luis Duvall Unavailable [phone] Reason For Referral No Information Plan Of Treatment No Information
--- OUTSIDE RECORDS SUMMARY | 2025-05-29 13:07 | XMS_ITS | Encounter Summary ---
Author Organization [employer] Address 75 [facility] 7t [place] [address] Care Team Providers Care Piano Sounding Board Matcher Name Role Phone [place] [facility] Primary Care Provider [phone] Reason for Visit * Reason Onset Date Comments Med Refill 01/21/2024 Encounter Details Date Type Department Care Team ([facility] st Contact Info) Description 01/21/2024 Telephone [facility] MEDICINE [address] [place], [place] [phone] [facility] 230 [place], [place] [phone] Med Refill Social History Tobacco Use Types [...] 11:57 AM EDT Medication was sent to [facility] on 11/26/23 #30 with 2 refills * Telephone Encounter - Eliana Varela - 01/21/2024 11:01 AM EDT TC from pt requesting medication refill. Medications needing refill : mirtazapine (Remeron SolTab) 45 MG disintegrating tablet To be sent to: [facility] [place], [place] - [address] documented in this encounter Plan of Treatment Upcoming Encounters Date Type Department Care Team (Late st Contact Info) Description 06/29/2025 10:30 AM EDT Office Visit [facility] MED[facility]INE [address] [place] [address] Pat Juan FNP [address] [place] [address] documented as of this encounter Visit Diagnoses Not on filedocumented in this encounter Additional Health Concerns Assessment Noted Time PHQ-9 Depression Total Score: 7 01/04/20 24 8:14 AM EDT documented as of this encounter Care Teams Piano Sounding Board Matcher Relationship Specialty Start Date End Date Pat Juan FNP [address] [place] [address] PCP - General Family Medicine 05/04/22 documented as of this encounter
--- OUTSIDE RECORDS SUMMARY | 2025-05-29 13:07 | XMS_ITS | Encounter Summary ---
Author Organization [employer] Address 75 [facility] 7t [place] [address] Care Team Providers Care Ethologist Name Role Phone Bee [facility] Primary Care Provider [phone] Reason for Visit * Reason Comments Med Refill Encounter Details Date Type Department Care Team ([facility] st Contact Info) Description 01/02/2024 Refill [facility]INE [address] [place], [place] [phone] [facility] 230 [place], [place] [phone] Tingling of both feet; Depressive disorder Social [...] Questionnaire-9 Score 7 01/04/2024 8:14 AM EDT Joe Castañeda documented as of this encounter Plan of Treatment Upcoming Encounters Date Type Department Care Team (Late st Contact Info) Description 06/29/2025 10:30 AM EDT Office Visit [facility]INE [address] [place], [place] [phone] Bee Pat, [facility] [address] [place] [address] documented as of this encounter Visit Diagnoses Diagnosis Tingling of both feet Depressive disorder Depressive disorder, not elsewhere classified documented in this encounter Additional Health Concerns Assessment Noted Time PHQ-9 Depression Total Score: 0 12/17/19 24 9:18 AM EDT documented as of this encounter Care Teams Ethologist Relationship Specialty Start Date End Date Drake CARLOS Stewart [address] [place] [address] PCP - General Family Medicine 05/04/22 documented as of this encounter
--- OUTSIDE RECORDS SUMMARY | 2025-05-29 13:07 | XMS_ITS | Encounter Summary ---
Author Organization [employer] Address 75 [facility] 7t [place] [address] Care Team Providers Care Rigger Up Name Role Phone [facility] Primary Care Provider [phone] Reason for Visit * Reason Comments Med Refill Encounter Details Date Type Department Care Team ([facility] st Contact Info) Description 10/15/2024 Refill [facility] MEDICINE 230 [place], [place] [phone] [facility] 230 [place], [place] [phone] Depressive disorder Social History Tobacco Use Types [...] Description 06/29/2025 10:30 AM EDT Office Visit [facility] MED[facility]INE [address] [place] [address] WiotaPat giraldo FNP [address] [place] [address] documented as of this encounter Visit Diagnoses Diagnosis Depressive disorder Depressive disorder, not elsewhere classified documented in this encounter Additional Health Concerns Assessment Noted Time PHQ-9 Depression Total Score: 0 03/19/20 24 8:51 AM EDT documented as of this encounter Care Teams Rigger Up Relationship Specialty Start Date End Date Pat Juan FNP [address] [place] [address] PCP - General Family Medicine 05/04/22 documented as of this encounter
--- OUTSIDE RECORDS SUMMARY | 2025-05-29 13:07 | XMS_ITS | Encounter Summary ---
Author Organization [employer] Address 75 [facility] 7t [place] [address] Care Team Providers Care Director Trust Name Role Phone [facility] Primary Care Provider [phone] Reason for Visit * Reason Comments Med Refill Encounter Details Date Type Department Care Team ([facility] st Contact Info) Description 04/14/2024 Refill [facility] [address] [place], [place] [phone] [facility] 230 [place], [place] [phone] Depressive disorder Social History Tobacco Use Types [...] Description 06/29/2025 10:30 AM EDT Office Visit [facility] MED[facility]INE [address] [place] [address] GlensidePat giraldo FNP [address] [place] [address] documented as of this encounter Visit Diagnoses Diagnosis Depressive disorder Depressive disorder, not elsewhere classified documented in this encounter Additional Health Concerns Assessment Noted Time PHQ-9 Depression Total Score: 0 03/19/20 24 8:51 AM EDT documented as of this encounter Care Teams Director Trust Relationship Specialty Start Date End Date Pat Juan FNP [address] [place] [address] PCP - General Family Medicine 05/04/22 documented as of this encounter
--- OUTSIDE RECORDS SUMMARY | 2025-05-29 13:07 | XMS_ITS | Encounter Summary ---
Author Organization [employer] Address 75 [facility] 7t [place] [address] Care Team Providers Care Pathology Assistant Name Role Phone Pat Juan [employer] Primary Care Provider [phone] Encounter Details Date Type Department Care Team (Late st Contact Info) Description 08/09/2023 Abstract [facility] MED[facility]INE [address] [place], [place] [phone] Rhina Diez Social History Tobacco Use Types [...] 06/29/2025 10:30 AM EDT Office Visit [facility] MED[facility]INE [address] [place] [address] Pat Juan FNP 230 [place] [address] documented as of this encounter Visit Diagnoses Not on filedocumented in this encounter Additional Health Concerns Assessment Noted Time PHQ-9 Depression Total Score: 0 07/18/20 23 9:27 AM EDT documented as of this encounter Care Teams Pathology Assistant Relationship Specialty Start Date End Date Pat Juan FNP [address] [place] [phone] PCP - General Family Medicine 05/04/22 documented as of this encounter
--- OUTSIDE RECORDS SUMMARY | 2025-05-29 13:07 | XMS_ITS | Clinical Summary ---
Author Organization [address] [facility] Address [address] [place] [address] Phone Care Team Providers Care Cooker Soda Name Role Phone [facility] Primary Care Provider [phone] Allergies Active Allergy Reactions Criticality Noted Date [...] Problem Noted Date Diagnosed Date Meningioma, cerebral ([facility] V24, [facility] V28) 07/19/2023 Overview (07/22/2024): Last [...] to order it for her from the [facility] pharmacy. Immunizations Name Administration Dates Next [...] HISTORICAL LITHOTRIPSY OTHER SURGICAL HISTORY 07/31/2023 PROCEDURE: ME CRNEC TREPHINE BONE FLAP MENINGIOMA SUPRATENTOR; COMMENT: [...] topic Insurance AETNA MEDICARE ADVANTAGE Care Teams Cooker Soda Relationship Specialty Start Date End Date Bradford Neal [address] [place] [phone] PCP - General Family Medicine 07/28/24
--- OUTSIDE RECORDS SUMMARY | 2025-05-29 13:07 | XMS_ITS | Encounter Summary ---
Author Organization [employer] Address [address] [facility] 7t [place] [address] Care Team Providers Care Electronics Maintenance Technician Name Role Phone Pat Juan LOADMASTER Primary Care Provider [phone] Reason for Visit * Reason Onset Date Comments Blood Pressure Check 05/13/2025 Encounter Details Date Type Department Care Team ([facility] st Contact Info) Description 05/13/2025 Telephone [facility] [address] [place], [place] [phone] Rochelle Horn RN [address] [place], [place] [phone] Blood Pressure Check Social History Tobacco Use [...] PM EDT TC placed to cardiology at [phone], left message with the ophthalmic surgical assistant line. Postponing to Sundayin case of no [...] shifted significantly to 110s-120s/ 70s. Pt at cut off saw set up operator yesterday 05/12/25 and BP documented as 120/60 [...] Description 06/29/2025 10:30 AM EDT Office Visit [facility] [address] [place] [address] Pat Juan FNP [address] [place] [address] documented as of this encounter Visit Diagnoses Not on filedocumented in this encounter Additional Health Concerns Assessment Noted Time PHQ-9 Depression Total Score: 0 03/25/20 11:20 AM EDT documented as of this encounter Care Teams Electronics Maintenance Technician Relationship Specialty Start Date End Date Pat Juan FNP [address] [place] [address] PCP - General Family Medicine 05/04/22 documented as of this encounter
--- OUTSIDE RECORDS SUMMARY | 2025-05-29 13:07 | XMS_ITS | Encounter Summary ---
Author Organization [employer] Address [address] [facility] 7t [place] [address] Care Team Providers Care Needle Bar Molder Name Role Phone Pat Juan CUT IN WORKER Primary Care Provider [phone] Encounter Details Date Type Department Care Team (Late st Contact Info) Description 04/17/2024 Orders Only [facility] [address] [place], [place] [phone] Lori Werner MD [address] [place], [place] [phone] Social History Tobacco Use Types Packs/Day Years [...] Description 06/29/2025 10:30 AM EDT Office Visit [facility] [address] [place] [address] Pat Juan FNP [address] [place] [address] documented as of this encounter Visit Diagnoses Not on filedocumented in this encounter Additional Health Concerns Assessment Noted Time PHQ-9 Depression Total Score: 0 03/19/20 24 8:51 AM EDT documented as of this encounter Care Teams Needle Bar Molder Relationship Specialty Start Date End Date Pat Juan FNP [address] [place] [address] PCP - General Family Medicine 05/04/22 documented as of this encounter
--- NOTE | 2025-05-29 14:00 | A.OFFVIS_ITS ---
Vital Signs 05/29/25 14:01 Height 4 ft 11 in Weight 145 lb 8.081 oz BMI 29.4 BP 140/70 H Blood Pressure Location Lt brachial Position Sitting Pulse 53 Pulse Source Pulse Oximeter Intake Visit Reasons: BP Running too high Station Cashier Required: Yes Station Cashier Name: KARIME [id number] Allergies morphine (MORPHINE) Allergy (Unknown, Verified 05/27/25 14:20) RASH Medication List - Last Reconciled 05/29/25 by Warren Crow NP abaloparatide (Tymlos) 80 mcg (0.04 mL) subcut DAILY acetaminophen 1,000 mg PO Q6H PRN albuterol sulfate 90 mcg/actuation 2 inhalations inhalation Q4-6H PRN albuterol sulfate 2.5 mg (3 mL) inhalation Q4-6H PRN ascorbate calcium (vitamin C) 1 g PO Q6H atorvastatin 40 mg PO DAILY budesonide-formoterol 160-4.5 mcg/actuation inhalation calcium citrate 500 mg (2 x 250 mg calcium) PO BID 90 days cetirizine 10 mg PO DAILY PRN citalopram 20 mg PO DAILY cyanocobalamin (vitamin B-12) 1,000 mcg PO QAM cyclobenzaprine 10 mg PO TID PRN famotidine 20 mg PO BEDTIME levothyroxine 75 mcg PO DAILY linaclotide (Linzess) 290 mcg PO QAM meloxicam 7.5 mg PO DAILY mirtazapine 45 mg PO BEDTIME montelukast 10 mg PO DAILY multivitamin 1 tab PO DAILY nebulizers As directed olmesartan 20 mg PO pantoprazole 40 mg PO QAM pen needle, diabetic USE DIRECTED WITH TYMLOS propranolol 10 mg PO DAILY umeclidinium 62.5 mcg/actuation (Incruse Ellipta) 1 inh inhalation DAILY 30 days zolpidem 10 mg PO BEDTIME PRN HPI Comments Details: This is a 74-year-old female patient coming in complaints of elevated blood pressures. A power tool repair technician was used throughout the visit. Patient was recently seen in the office for dizziness and syncopal episode for which patient is planned for a Holter study in the near future. Patient at that time had well-controlled blood pressures however recently at her primary care office, patient has been having elevated blood pressures and has been referred to Cardiology for further management of her blood pressures. Patient states that she is on olmesartan 20 mg daily and propranolol 10 mg daily for a blood pressure. Patient is otherwise denying any exertional chest pain, shortness of breath, palpitations, orthopnea, PND, leg edema, presyncope, or syncope. Patient is reporting compliance with all her medications. [facility] Medical History Transaminitis Pulmonary nodules Allergies Kidney stone Back pain Arthritis HLD (hyperlipidemia) Hypothyroidism Diabetes Hypertension Asthma Hyperthyroidism Vitamin D deficiency Primary hyperparathyroidism Postablative hypothyroidism Surgical History History of craniotomy Hx of colonoscopy History of esophagogastroduodenoscopy (EGD) Hx of endoscopy S/P subtotal parathyroidectomy History of carpal tunnel release of both wrists Hx of cataract removal with insertion of prosthetic lens Hx of lithotripsy Hx of cholecystectomy Hx of hysterectomy Family History Father No problems noted. Mother No problems noted. Social History Household Members: Family Are you a primary director long term care to a significant other at home: No Do you presently have visiting nurse or other home services: No Alcohol intake: never Patient Tobacco Use Status: Never used Tobacco Review of Systems Const Denies weakness ENT Denies dizziness Card Denies chest pain, Denies chest pain with activity, Denies syncope, Denies rapid heart rate, Denies pedal edema, Denies edema, Denies leg edema, Denies lightheadedness, Denies palpitations, Denies dyspnea, Denies dyspnea on exertion and Denies orthopnea Resp Denies cough, Denies dyspnea and Denies dyspnea on exertion GI Denies hematochezia and Denies change in stool character Musc Denies abnormal gait, Denies muscle cramps, Denies muscle weakness, Denies numbness, Denies radiating pain into limb and Denies tingling Neuro Denies abnormal gait, Denies dizziness, Denies syncope, Denies numbness, Denies tingling and Denies weakness Endo Denies palpitations Physical Exam Vital Signs: Last Vital Signs Pulse 53 05/29/25 14:01 BP 140/70 H 05/29/25 14:01 BMI result Body Mass Index 29.4 Const General: cooperative, healthy appearing, comfortable and no acute distress Orientation/consciousness: patient oriented x3 HEENT Head: Yes normal to inspection Neck Neck: Yes normal visual inspection, Yes trachea midline and Yes supple Chest Chest palpation & inspection: normal inspection of the chest Resp Effort & Inspection: normal respiratory effort Auscultation: clear to auscultation bilaterally, no crackles, no rales, no rhonchi and no wheezes Cardio Jugular venous distension: no JVD Palpation: normal PMI Rate: regular rate Rhythm: regular rhythm Heart sounds: S1 normal heart sound present, S2 normal heart sound present, no click, no gallops, no murmurs and no rubs Peripheral pulses: Peripheral pulses 2+ throughout GI Inspection: Yes normal to inspection Palpation (GI): Soft to palpation Auscultation: normal bowel sounds Skin General skin exam: no rashes or lesions noted Neuro General: patient oriented x3 Extrem General: Yes normal to inspection, No no pedal edema and No calf tenderness Psych Appearance: grossly normal Mental Status: mental status grossly normal Speech and movement: Normal speech and movement present Assessment & Plan Assessment & Plan (1) Hypertension: Code(s): I10 - Essential (primary) hypertension Category: Medical Plan: Echo from 2022 showed a normal LVEF of 66% with moderate septal hypertrophy and mid inferior septal hypokinesis. However, at a repeat echo at [facility] on 01/20/2025, it showed a normal LVEF with no wall motion abnormalities. Patient also had a myocardial perfusion study on 08/12/2024 that showed normal perfusion. Blood pressure today is elevated. Her home blood pressures are also elevated mostly in the 150s to 160s systolic. We will increase her olmesartan to 40 mg daily and add hydrochlorothiazide to her regimen. Given her respiratory issues, patient to continue with propranolol daily instead of 3 times a day as on her med list. Slowly we might be able to take patient off the propranolol. Advised monitoring blood pressures at home with a goal less than 130/80. Advised to maintain a log of it and to bring it to the visit with the nurse for blood pressure check. Advised on low-salt diet. (2) Syncope and collapse: Code(s): R55 - Syncope and collapse Category: Medical Plan: Holter study is pending. No reported symptoms of presyncope or syncopal episodes. Advised heart healthy diet, regular exercise, low-salt diet, adequate hydration, med compliance, and management of vascular risk factors. Follow-up in 2 weeks with the nurse for a blood pressure check and in a month for an office visit. In the interim, patient will call the office with any concerns or change in symptoms. This note was generated using voice recognition software. While every effort has been made to ensure accuracy and proper television technician, there may be occasional errors that could affect the content or meaning of the described symptoms. Medications: New olmesartan 40 mg PO DAILY 90 tabs 3RF hydrochlorothiazide 12.5 mg PO DAILY 90 tabs 3RF Coding Level of Care Code Est Pt Level 4 (16093) Complex EM visit Add On G2211 Diagnoses Hypertension I10 Syncope and collapse R55 Time Spent (min) 33 Comment Time spent in reviewing the chart, test results, assessment, counseling and documentation.
[2025-05-29 14:01] VITALS: BP 140/70; PULSE 53; BMI 29.4
== END 2025-05-29 14:31 | disposition home or self-care (01) ==
LOC: HO.HCS 12:54
PROVIDERS: PCP Registered Nurse
DX: I10 Essential (primary) hypertension (principal); R55 Syncope and collapse
CPT/HCPCS: 99214; G2211

== ENCOUNTER → 2025-05-29 12:53 | Outpatient (BNVA) | payer MEDICARE, SELFPAY | PROVIDERS: PCP Registered Nurse | DX: I10 Essential (primary) hypertension (principal); R55 Syncope and collapse | CPT/HCPCS: 99212 ==

== ENCOUNTER 2025-06-05 10:01 | Outpatient (AMB) | payer MEDICARE, SELFPAY ==
[2025-06-05 10:17] VITALS: BP 114/68; PULSE 83; O2SAT 94; BMI 29.8
--- NOTE | 2025-06-05 10:17 | MHC.OFFVIS ---
Vital Signs 06/05/25 10:17 Height 4 ft 11 in Weight 147 lb 11.355 oz BMI 29.8 BP 114/68 Blood Pressure Location Lt brachial Position Sitting Pulse 83 Pulse Source Pulse Oximeter Pulse Oximetry (%) 94 Oxygen Delivery Method Room Air Intake Visit Reasons: Asthma Advertising Traffic Manager Required: No Accompanied by: Self / Same As Patient Allergies morphine (MORPHINE) Allergy (Unknown, Verified 06/05/25 10:20) RASH HPI Comments Details: The patient is a 74 year woman known history of asthma now with worsening asthma symptoms. The patient states that she was in her usual state health until she had her 1st baby. After her she started developing asthma symptoms since she started using inhalers. The patient most recently was evaluated in the ER back in November 2023 for an asthma exacerbation. At that point she was having also flu-like symptoms and she was positive for the flu. She was treated with Tamiflu. Prior to that she had been evaluated in the ER back in June for an asthma exacerbation. She did have a chest x-ray demonstrating no significant abnormalities except for a slightly elevated left hemidiaphragm. She also has had imaging studies including a CT scan of the chest which I personally reviewed from 2019 demonstrating multiple pulmonary nodules which were benign appearance and appeared to be stable when compared to previous CT scans from 2016. The patient states that she does have underlying allergies. She has never been treated for allergies. I did review her blood work she does have significant eosinophilia suggesting eosinophilic asthma. She still has some wheezing on examination will try to optimize her respiratory therapy by adding a long-acting muscarinic antagonist. The patient may also be a candidate biologics if she continues to require prednisone have frequent exacerbations. 05/27/2024 the patient is here for pulmonary follow-up visit. Overall the patient has been doing well. Unfortunately in February she did develop RSV in significant asthma symptoms. she is feeling better now that she has a productive cough with yellow phlegm. Moderate severity. She has responded well to the current respiratory regimen. Blood work was done. She does have some degree of eosinophilia. Although her asthma seems to be better control on the current respiratory if it was not for the RSV infection. She did have a chest x-ray beginning of 05/13/2024. Seems to have some pulmonary congestion. Therefore, will go ahead and treat her with doxycycline for postop bacterial infection. She is going to continue with the current respiratory regimen. For now there is no need to start her on biologics. Will reassess in the spring. 11/12/2024 the patient is here for pulmonary follow-up visit. The patient overall is feeling little better. She recently had COVID back in beginning of the month. She started developing chest congestion. She went to the ER was given some antibiotics and prednisone. The patient now is better although she still coughing still having school congestion [id number] severity. She is using her respiratory therapy. I did review her chest x-ray without any acute disease although she does have a slight elevation of the right hemidiaphragm which she has had before. Will go ahead and put her back on doxycycline treat her further for post viral bacterial infections. She will continue with respiratory therapy. She does not need any prednisone at this time. Also to note the patient is also complaining of some abdominal discomfort. Her LFTs were elevated likely secondary to COVID. I will have her get some blood work if her symptoms persist or they worsen. If her symptoms worsen she will call for an earlier assessment. 06/05/2025 the patient is here for pulmonary follow-up visit. Overall she is doing well. Denies any worsening respiratory complaints. She is tolerating her respiratory therapy as prescribed. She did have a bout of syncope and I believe she lost consciousness. This was back in December and she was admitted to [facility] briefly. There she did have a CTA that I personally reviewed demonstrating multiple subcentimeter pulmonary nodules measuring up to 5 mm in size in the right hemithorax. This apparently are new. No evidence of any blood clots. The patient is currently wearing a Holter monitor. She will continue with the current respiratory regimen will plan to follow-up in late spring after repeating the CAT scan to follow-up with those pulmonary nodules. If she has any issues prior to that she can always call further recommendations. [facility] Medical History Transaminitis Pulmonary nodules Allergies Kidney stone Back pain Arthritis HLD (hyperlipidemia) Hypothyroidism Diabetes Hypertension Asthma Hyperthyroidism Vitamin D deficiency Primary hyperparathyroidism Postablative hypothyroidism Surgical History History of craniotomy Hx of colonoscopy History of esophagogastroduodenoscopy (EGD) Hx of endoscopy S/P subtotal parathyroidectomy History of carpal tunnel release of both wrists Hx of cataract removal with insertion of prosthetic lens Hx of lithotripsy Hx of cholecystectomy Hx of hysterectomy Family History Father No problems noted. Mother No problems noted. Social History Household Members: Family Are you a primary care associate to a significant other at home: No Do you presently have visiting nurse or other home services: No Alcohol intake: never Patient Tobacco Use Status: Never used Tobacco Review of Systems Const Denies weight gain and Denies weight loss ENT Reports no additional complaints, Reports nasal congestion and Reports nasal discharge Card Reports no additional complaints Resp Reports chest congestion, Reports cough and Reports wheezing GI Denies abdominal pain Musc Reports no additional complaints Neuro Reports no additional complaints Psych Reports no additional complaints Endo Reports no additional complaints Aller/Immun Reports wheezing Physical Exam Vital Signs: Last Vital Signs Pulse 83 06/05/25 10:17 BP 114/68 06/05/25 10:17 Pulse Ox 94 06/05/25 10:17 Oxygen Delivery Method Room Air 06/05/25 10:17 BMI result Body Mass Index 29.8 Const General: healthy appearing, no acute distress and well developed Nutritional Appearance: well nourished Orientation/consciousness: patient oriented x3 HEENT Head: Yes normocephalic Neck Neck: Yes supple Chest Chest palpation & inspection: normal inspection of the chest Resp Effort & Inspection: normal respiratory effort Auscultation: no wheezes and diminished lung sounds Cardio Rate: regular rate GI Inspection: No distended Palpation (GI): Soft to palpation General: Yes no CVA tenderness Back/Spine/Pelvis Back: no CVA tenderness Skin General skin exam: no rashes or lesions noted Neuro General: patient oriented x3 Extrem General: Yes no clubbing, cyanosis or edema Psych Appearance: grossly normal Mental Status: mental status grossly normal Assessment & Plan Assessment & Plan (1) Asthma: Code(s): J45.909 - Unspecified asthma, uncomplicated Category: Medical Qualifiers: Asthma complication type: uncomplicated Asthma persistence: persistent Asthma severity: moderate Qualified Code(s): J45.40 - Moderate persistent asthma, uncomplicated (2) Allergies: Code(s): T78.40XA - Allergy, unspecified, initial encounter Category: Medical Qualifiers: Encounter type: initial encounter Qualified Code(s): T78.40XA - Allergy, unspecified, initial encounter (3) Pulmonary nodules: Comment: subcentemeter, stable 2016 to 2019 Code(s): R91.8 - Other nonspecific abnormal finding of lung field Category: Medical (4) Transaminitis: Code(s): R74.01 - Elevation of levels of liver transaminase levels Category: Medical (5) Bronchitis: Code(s): J40 - Bronchitis, not specified as acute or chronic Category: Medical Plan stop Symbicort stop Incruse start Trelegy MARCO as needed continue Zyrtec continue Singulair CT chest F/U 6-8 months Orders: Orders CT chest wo IV con 01/22/26 R91.8 - Other nonspecific abnormal finding of lung field Medications: New jvmvjcgsesq-ybufflrxo-wkhgljrl 200-62.5-25 mcg (Trelegy Ellipta) 1 inh inhalation DAILY 60 ea 12RF 30 days Coding Level of Care Code Est Pt Level 4 (91639) Complex EM visit Add On G2211 Diagnoses Moderate persistent asthma without complication J45.40 Asthma complication type: uncomplicated Asthma persistence: persistent Asthma severity: moderate Allergy, initial encounter T78.40XA Encounter type: initial encounter Pulmonary nodules R91.8 Transaminitis R74.01 Bronchitis J40 Time Spent (min) 16
--- OUTSIDE RECORDS SUMMARY | 2025-06-05 11:22 | XMS_ITS | Encounter Summary ---
Author Organization [employer] Address [address] [facility] 7[address] [place] [address] Care Team Providers Care Christmas Tree Farm Manager Name Role Phone [facility] Primary Care Provider [phone] Reason for Visit * Reason Comments Med Refill Encounter Details Date Type Department Care Team ([facility] st Contact Info) Description 10/15/2024 Refill [facility] [address] [place], [place] [phone] [facility] [address] [place], [place] [phone] Depressive disorder Social History Tobacco Use Types [...] Description 06/29/2025 10:30 AM EDT Office Visit [facility] [address] [place] [address] DrakePat giraldo FNP [address] [place] [address] documented as of this encounter Visit Diagnoses Diagnosis Depressive disorder Depressive disorder, not elsewhere classified documented in this encounter Additional Health Concerns Assessment Noted Time PHQ-9 Depression Total Score: 0 03/19/20 24 8:51 AM EDT documented as of this encounter Care Teams Christmas Tree Farm Manager Relationship Specialty Start Date End Date Pat Juan FNP [address] [place] [address] PCP - General Family Medicine 05/04/22 documented as of this encounter
--- OUTSIDE RECORDS SUMMARY | 2025-06-05 11:22 | XMS_ITS | Clinical Summary ---
Author Organization [employer] Address [address] [facility] 7t [place] [address] Care Team Providers Care Aerial Photograph Interpreter Name Role Phone Pat Juan [employer] Primary Care Provider [phone] Allergies Active Allergy Reactions Criticality Noted Date Comments Morphine Rash Low 03/24/2011 Other reaction(s): Rash Medications * This document contains information received from the source organization and may not represent a complete record from that organization. glucose blood (WandoujiaTouch Ultra) test strip USE 1 STRIP by [...] HOURS IF NEEDED 8.5 g 024 Active propranolol (Inderal) 10 MG tabletIndications :Chronic nonintractable headache, unspecified headache type,Primary hypertension Take 1 tablet (10 mg) by mouth 3 times daily. 90 tablet 11 024 2024 Active Additional Information Patient taking differently:10 [...] MOUTH EVERY DAY BEFORE BREAKFAST 30 tablet Active Tymlos 3120 MCG/1.56ML solution pen-injector Inject [...] within 12 hours or as directed by MD. 30 patch 1 Active Blood Glucose Monitoring Suppl (FreeStyle [place] Lite) w/Device kitIndications:Pr ediabetes,Hypogly cemia Use to [...] complication, without long-term current use of insulin ([facility]) USE TO TEST BLOOD SUGAR ONCE A DAY 1 kit Active glucose blood (OneTouch Ultra) test stripIndications: Type 2 diabetes mellitus without complication, without long-term current use of insulin ([facility]) USE TO TEST BLOOD SUGAR ONCE A DAY 100 each 5 Active OneTouch Delica Lancets 33G miscIndications:T ype 2 diabetes mellitus without complication, without long-term current use of insulin ([facility]) USE TO TEST BLOOD SUGAR ONCE A DAY 100 each 5 Active montelukast (Singulair) 10 MG tablet TAKE [...] TABLET BY MOUTH EVERY DAY 90 tablet Active olmesartan (BENIcar) 20 MG tabletIndications :Essential hypertension Take 1 tablet (20 mg) by mouth Once per day. 90 tablet 3 025 2025 Active mirtazapine (Remeron Eliana-Tab) 45 MG disintegrating tabletIndications :Depression, major, in remission ([facility]) TAKE 1 TABLET BY MOUTH DAILY AT BEDTIME 30 tablet 3 Active cetirizine (ZyrTEC) 10 MG tabletIndications :Seasonal allergies TAKE 1 TABLET BY MOUTH EVERY DAY NEEDED FOR ALLERGIES 90 tablet 1 Active Alcohol Swabs (Easy Touch Alcohol Prep Medium) 70 % padsIndications:P rediabetes,Hypogl ycemia USE TO TEST BLOOD SUGAR 1 TIMES DAILY 100 each 3 025 Active zolpidem (Ambien) 10 MG tabletIndications :Depressive disorder TAKE 1 TABLET BY MOUTH DAILY AT BEDTIME 28 tablet Active meloxicam (Mobic) 7.5 MG tabletIndications :Muscle spasm TAKE 1 TABLET BY MOUTH EVERY DAY 30 tablet 025 Active Multiple Vitamin (Daily-Jacquelyn) tablet TAKE 1 TABLET BY MOUTH EVERY DAY WITH FOOD 90 tablet 2 025 Active Multiple Vitamin (Multivitamin) tablet Take 1 tablet by mouth Once per day. TAKE 1 TABLET BY MOUTH EVERY DAY WITH FOOD 90 tablet 3 024 2024 Discontinued Alcohol Swabs 70 % padsIndications:P rediabetes,Hypogl ycemia Use to test blood sugar 1 times daily 100 each 025 2024 Discontinued zolpidem (Ambien) 10 MG tabletIndications :Depressive disorder [...] idiopathic constipation 05/05/2023 Overview (05/05/2023): Followed by [facility] Linzess Numbness and tingling in left [...] reflux disease 06/02/2013 Overview (10/10/2024): Followed by [facility] Negative EGD 2021 Pantoprazole Pt seen [...] , Patient to reach out to [facility] team as needed, and Patient to [...] oxygen 2L PRN albuterol Followed by pulmonology [facility] Assessment & Plan (02/03/2025 4:57 PM EDT): Now stable continue with same interventions Assessment & Plan (10/30/2024 10:58 AM EST): Mild exacerbation due to Covid infection. Increase Symbicort to Que 6 hours prn SOB/cough. FU with Rapier Insertion Loom Fixer. Assessment & Plan (08/18/2024 11:43 AM EST): [...] support system PLAN: 1. Follow up with [facility]: Recommended for follow-up: 07/31 @ 10am 2. Patient goal is to continue controlling symptoms. 3. Behavioral Recommendations a. F/u in 2 weeks. b. Continue use of coping skills Hyperkalemia 02/20/2018 10/24/2022 Encounters Date Type Department Care Team Description 05/29/2025 Refill [facility] [address] [facility] [place] [address] Lori Werner MD 05/18/2025 Refill [facility] [address] [facility] [place] [address] Olivia Ramirez MD Muscle spasm 05/13/2025 10:30 AM EDT Clinical Support [facility] [address] [place] [address] Rochelle Horn RN Primary hypertension 05/13/2025 Refill [facility] [address] [facility] [place] [address] [facility] [facility] Depressive disorder 05/13/2025 Telephone [facility] [address] [facility] [place] [address] Rochelle Horn RN Blood Pressure Check 05/13/2025 Travel 05/11/2025 Refill [facility] [address] [facility] [place] [address] Lori Werner MD Prediabetes; Hypoglycemia 04/30/2025 Telephone [facility] [address] [facility] [place] [address] [place] [facility] oct recall 04/22/2025 11:00 AM EDT Clinical Support [facility] [address] [facility] [place] [address] Nadia Michelle RN Primary hypertension 04/22/2025 Refill [facility] [address] [place] [address] Rochelle Horn, JACE Essential hypertension 04/22/2025 Travel 04/16/2025 Refill [facility] [address] [place], [place] [address] Pat Juan FNP Depressive disorder; Muscle spasm 04/08/2025 10:00 AM EDT Clinical Support [facility] [address] [place], [place] [address] Kristy Alcaraz RN Essential hypertension 04/08/2025 Telephone [facility] [address] [place], [place] [address] Pat Juan FNP Med Refill 04/08/2025 Orders Only [facility] [address] [place], [place] [address] Pat Juan FNP 04/08/2025 Refill [facility] [address] [place] [address] Pat Juan FNP Essential hypertension; Depression, major, in remission ([facility]) 04/08/2025 Travel 04/08/2025 Refill [facility] [place] [place] [address] Pat Juan FNP Depression, major, in remission ([facility]) 03/30/2025 Refill [facility] [address] [place] [address] Pat Juan FNP Tingling of both feet 03/25/2025 11:15 AM EDT Office Visit [facility] [place] [address] Pat uJan FNP Essential hypertension (Primary Dx); Muscle spasm; Dietary counseling; Exercise counseling 03/25/2025 Travel 03/24/2025 Telephone [facility] [place] [place] [address] Pat Juan FNP chart prep 03/20/2025 Refill [facility] [place] [place] [address] Pat Juan FNP Muscle spasm 03/18/2025 Patient Outreach [facility] [address] [place], [place] [address] DrakePat FNP Pre-visit Planning (SDOH screening positive and Tobacco screening negative) 03/16/2025 Refill [facility] [address] [place] [address] [place] Springs[place] FNP Depressive disorder from Last 3 Months Immunizations Immunization Administration [...] Description 06/29/2025 10:30 AM EDT Office Visit [facility] [address] [place] [address] [facility] [address] [place] [address] Health Maintenance Due Date Last Done Comments Alcohol/Substance Use Screening 1962 Eye Exam 09/24/2023 09/24/2021 RSV Patients and Patients Aged 60 years or older (1 - 1-dose 75+ series) 2023 Diabetes: Foot Exam 03/19/2025 03/19/2024, 03/19/2024, 03/19/2024, Additional history exists COVID-19 Vaccine (3 - 2024- season) 2025 01/12/2021, 12/15/2020 Influenza Vaccine (#1) [...] CHEMISTRY Routine 04/08/2025 1 0:05 AM EDT POCT GLYCATED HEMOGLOBIN, TOTAL Routine 02/03/2025 [...] 10:05 AM EDT) Cancelled Chemistry SEE NOTE [facility] Comment:THE FOLLOWING TESTS WERE CANCELLED: BMPREASON: Specimen hemolyzed 04/08/2025 10:0 5 AM EDT 04/08/2025 11:31 AM EDT [facility] [employer] HISTORICAL/NON ORDERABLE LABS Final Result [facility] [address] [place] [address] [phone] * POCT HGB A1C (02/03/2025 2:05 PM EDT) Pathologist [facility] Hemoglobin A1C 5.6 4.0 - 6.0 % Blood 02/03/2025 2:05 PM EDT Lori Santoyo MD POINT OF CARE TEST EN TER/EDIT ORDERABLES Final Result * Albumin, Random Urine W/Creatinine (09/15/2024 9:23 AM EST) Pathologist [facility] Creatinine, Urine 65.58 mg/dL [facility] Microalbumin Urine <5.0 mg/L [facility] Microalbum Creatinine Ratio Ur TNP <30 ug/mg cr [facility] Comment:Unable to calculate albumin/creatinine ratio due to lowmicroalbumin or creatinine result. Urine 09/15/2024 9:23 AM EST 09/15/2024 10:51 AM EST [facility] [employer] LAB URINE ORDERABLES Final Re sult [facility] [address] [place] [address] [phone] * Lipid Panel, Standard (09/15/2024 9:18 AM EST) Triglycerides 114 <150 mg/dL [facility] Comment:Desirable Triglyceri de: less than 150 mg/dLBorderline High Triglyceride 150-199 mg/dLHigh Triglyceride: 200-499 mg/dLVery High Triglyceride: greater than or equal to 5OO mg/dL Cholesterol 168 <200 mg/dL [facility] Comment:Desirable Cholestero l: less than 200 mg/dLBorderline High Cholesterol: 200-239 mg/dLHigh Cholesterol: greater than 239 mg/dL LDL Cholesterol Calculated 81 <100 mg/dL [facility] Comment:Desirable LDL: less than 100 mg/dLNear Optimal/Above Optimal LDL: 110- 129 mg/dLBorderline High LDL: 130-159 mg/dLHigh LDL: 160-189 mg/dLVery High LDL: greater than or equal to 190 mg/dL HDL Cholesterol 65 >40 mg/dL [facility] Comment:Desirable HDL: great er than 40 mg/dL Note: This HDL assay may give artificially low results in patients with liver disease. Blood Venous blood specimen / Unknown 09/15/2024 9:18 AM EST 09/15/2024 10:53 AM EST [facility] LAB BLOOD ORDERABLES Final Re sult Performing Organization Address City/[facility]/ZIP Co de Phone Number [facility] [address] [place] [phone] * Hepatitis C Antibody with Reflex to HCV, RNA, Quantitative, Real-Time PCR (01/31/2023 4:01 PM EDT) Hepatitis C Antibody NON-REACT HERRERA NON-REACT HERRERA [employer] [place] GetOne Rewardst Index 0.09 <1.00 [employer] [place] [employer] Comment: HCV antibody was non-reactive. There is no laboratory evidence of HCV infection. In most cases, no further action is required. However, if recent HCV exposure is suspected, a test for HCV RNA (test code 75118) is suggested. For additional information please refer to http://education.[employer]/faq/AKM18g4 (This link is being provided for informational/ educational purposes only.) Blood Venous blood specimen / Unknown 01/31/2023 4:01 PM EDT 01/31/2023 4:01 PM EDT [facility] LAB BLOOD ORDERABLES Final Re sult Performing Organization Address City/[facility]/ZIP Co de Phone Number [facility] [address], [place] [address] [employer] [place] [facility] [address] [place] [address] * Hm Colonoscopy (08/24/2022) Colonoscopy Normal Normal Comment:[facility] - negative 08/24/2022 Historical Provider HEALTH MAINTENANCE Final Result from Last 3 Months or Most Recently Relevant to Health Maintenance Insurance [employer] MEDICARE REPLACEMENT [facility] Care Teams Aerial Photograph Interpreter Relationship Specialty Start Date End Date Pat Juan FNP [address] [place] [address] PCP - General Family Medicine 05/04/22
--- OUTSIDE RECORDS SUMMARY | 2025-06-05 11:22 | XMS_ITS | Clinical Summary ---
Author Organization [facility] Address [address] [place] [address] Care Team Providers Care Timber Feller Name Role Phone Unavailable Primary Care Provider [...] Drug Screen 09/24/2024 Depression Annual Screen 09/24/2024 [id number] (3 - 2024- season) 2025 021, 12/15/2020 Imm-Influenza (#1) 2025 08/13/2019, 1 10/07/2016, 06/17/2015, Additional history exists Imm-Pneumococcal 50+ Completed 08/07/2017, 09/02/2015, 09/26/2007 Insurance [facility]
--- OUTSIDE RECORDS SUMMARY | 2025-06-05 11:22 | XMS_ITS | Encounter Summary ---
Author Organization [employer] Address [address] [facility] 7t [place] [address] Care Team Providers Care Sdet Name Role Phone [facility] Primary Care Provider [phone] Reason for Visit * Reason Comments Med Refill Encounter Details Date Type Department Care Team ([facility] Contact Info) Description 11/06/2022 Refill [facility] [address] [place], [place] [phone] [facility] [address] [place], [place] [phone] Depressive disorder Social History Tobacco Use Types [...] Upcoming Encounters Date Type Department Care Team ([facility] Contact Info) Description 06/29/2025 10:30 AM EDT Office Visit [facility] [address] [place], [place] [phone] [facility] [address] [place], [place] [phone] documented as of this encounter Visit Diagnoses Diagnosis Depressive disorder Depressive disorder, not elsewhere classified documented in this encounter Additional Health Concerns Assessment Noted Time PHQ-9 Depression Total Score: 0 10/24/19 23 10:40 AM EST documented as of this encounter Care Teams Sdet Relationship Specialty Start Date End Date Pat Juan FNP [address] [place] [address] PCP - General Family Medicine 05/04/22 documented as of this encounter
--- OUTSIDE RECORDS SUMMARY | 2025-06-05 11:23 | XMS_ITS | Encounter Summary ---
Author Organization [employer] Address [address] [facility] 7t [place] [address] Care Team Providers Care Instructor Watch Assembly Name Role Phone [facility] Primary Care Provider [phone] Reason for Visit * Reason Comments Med Refill Encounter Details Date Type Department Care Team ([facility] st Contact Info) Description 12/06/2023 Refill [facility] [address] [place], [place] [phone] [facility] [address] [place], [place] [phone] Depressive disorder Social History Tobacco Use Types [...] 06/29/2025 10:30 AM EDT Office Visit [facility] [address] [place] [address] Pat Juan FNP [address] [place] [address] documented as of this encounter Visit Diagnoses Diagnosis Depressive disorder Depressive disorder, not elsewhere classified documented in this encounter Additional Health Concerns Assessment Noted Time PHQ-9 Depression Total Score: 13 024 11:25 AM EST documented as of this encounter Care Teams Instructor Watch Assembly Relationship Specialty Start Date End Date Pat Juan FNP [address] [place] [address] PCP - General Family Medicine 05/04/22 documented as of this encounter
--- OUTSIDE RECORDS SUMMARY | 2025-06-05 11:23 | XMS_ITS | Encounter Summary ---
Author Organization [employer] Address [address] [facility] 7t [place] [address] Care Team Providers Care Music Ministries Director Name Role Phone [facility] Primary Care Provider [phone] Reason for Visit * Reason Onset Date Comments Med Refill 01/21/2024 Encounter Details Date Type Department Care Team ([facility] st Contact Info) Description 01/21/2024 Telephone [facility] [address] [place], [place] [phone] [facility] 230 [place], [place] [phone] Med Refill Social History Tobacco Use Types [...] 11:57 AM EDT Medication was sent to [facility] on 11/26/23 #30 with 2 refills * Telephone Encounter - Eliana Varela - 01/21/2024 11:01 AM EDT TC from pt requesting medication refill. Medications needing refill : mirtazapine (Remeron SolTab) 45 MG disintegrating tablet To be sent to: [facility] [place], [place] - [address] documented in this encounter Plan of Treatment Upcoming Encounters Date Type Department Care Team (Late st Contact Info) Description 06/29/2025 10:30 AM EDT Office Visit [facility] [address] [place] [address] Pat Juan FNP [address] [place] [address] documented as of this encounter Visit Diagnoses Not on filedocumented in this encounter Additional Health Concerns Assessment Noted Time PHQ-9 Depression Total Score: 7 01/04/20 24 8:14 AM EDT documented as of this encounter Care Teams Music Ministries Director Relationship Specialty Start Date End Date Pat Juan FNP [address] [place] [address] PCP - General Family Medicine 05/04/22 documented as of this encounter
--- OUTSIDE RECORDS SUMMARY | 2025-06-05 11:23 | XMS_ITS | Clinical Summary ---
Author Organization [address] [facility] Address [address] [place] [address] Phone Care Team Providers Care Imcu Nurse Name Role Phone [facility] Primary Care Provider [phone] Allergies Active Allergy Reactions Criticality Noted Date [...] Problem Noted Date Diagnosed Date Meningioma, cerebral ([facility] V24, [facility] V28) 07/19/2023 Overview (07/22/2024): Last Assessment & [...] headaches which were treated with Fioricet in [place] but she has been unable to obtain it here. I will try again to order it for her from the [facility] pharmacy. Immunizations Name Administration Dates Next [...] HISTORICAL LITHOTRIPSY OTHER SURGICAL HISTORY 07/31/2023 PROCEDURE: RI CRNEC TREPHINE BONE FLAP MENINGIOMA SUPRATENTOR; COMMENT: [...] topic Insurance AETNA MEDICARE ADVANTAGE Care Teams Imcu Nurse Relationship Specialty Start Date End Date [place] [address] [place] [address] PCP - General Family Medicine 07/28/24
--- OUTSIDE RECORDS SUMMARY | 2025-06-05 11:23 | XMS_ITS | Encounter Summary ---
Author Organization [employer] Address 75 [facility] 7t [place] [address] Care Team Providers Care Green Marketing Specialist Name Role Phone [facility] Primary Care Provider [phone] Reason for Visit * Reason Onset Date Comments Med Refill 04/08/2025 Encounter Details Date Type Department Care Team ([facility] st Contact Info) Description 04/08/2025 Telephone [facility] 230 [place], [place] [phone] [facility] 230 [place], [place] [phone] Med Refill Social History Tobacco Use Types [...] MG disintegrating tablet To be sent to: [facility] [place] [place] - [address] [facility] [address] documented in this encounter Plan of Treatment Upcoming Encounters Date Type Department Care Team (Late st Contact Info) Description 06/29/2025 10:30 AM EDT Office Visit [facility] [address] [place] [address] DrakePat giraldo FNP [address] [place] [address] documented as of this encounter Visit Diagnoses Not on filedocumented in this encounter Additional Health Concerns Assessment Noted Time PHQ-9 Depression Total Score: 0 03/25/20 25 11:20 AM EDT documented as of this encounter Care Teams Green Marketing Specialist Relationship Specialty Start Date End Date Pat Juan FNP [address] [place] [address] PCP - General Family Medicine 05/04/22 documented as of this encounter
--- OUTSIDE RECORDS SUMMARY | 2025-06-05 11:23 | XMS_ITS | Patient Health Record ---
Author Organization [employer] Address [address] [place] [address] Care Team Providers Care Speech Teacher Name Role Phone Pedro Luis Duvall Unavailable [phone] Reason For Referral No Information Plan Of Treatment No Information
--- OUTSIDE RECORDS SUMMARY | 2025-06-05 11:23 | XMS_ITS | Encounter Summary ---
Author Organization [employer] Address 75 [facility] 7t [place] [address] Care Team Providers Care Nitrate Operator Name Role Phone Pat Juan AIRPLANE PATROLLER Primary Care Provider [phone] Reason for Visit * Reason Onset Date Comments Blood Pressure Check 05/13/2025 Encounter Details Date Type Department Care Team ([facility] st Contact Info) Description 05/13/2025 Telephone [facility] 230 [place], [place] [phone] Rochelle Horn RN [address] [place], [place] [phone] Blood Pressure Check Social History Tobacco Use [...] Telephone Encounter - Rochelle Horn RN - 06/02/2025 11:34 AM EDT [facility] cardiology contacted the pt. Directly And already brought pt. In for an appt. 05/29/25 We will increase her olmesartan to 40 mg daily and add hydrochlorothiazide to her regimen. Given her respiratory issues, patient to continue with propranolol daily instead of 3 times a day as on her med list. Slowly we might be able to take patient off the propranolol. Advised monitoring blood pressures at home with a goal less than 130/80. Advised to maintain a log of it and to bring it to the visit with the nurse for blood pressure check. * Telephone Encounter - Rochelle Horn RN - 05/27/2025 3:04 PM EDT TC placed to cardiology at [phone], left message with the check inspector line. Postponing to Sundayin case of no [...] shifted significantly to 110s-120s/ 70s. Pt at rehabilitation worker yesterday 05/12/25 and BP documented as 120/60 [...] 06/29/2025 10:30 AM EDT Office Visit [facility] [address] [place] [address] Pat Juan FNP [address] [place] [address] documented as of this encounter Visit Diagnoses Not on filedocumented in this encounter Additional Health Concerns Assessment Noted Time PHQ-9 Depression Total Score: 0 03/25/20 11:20 AM EDT documented as of this encounter Care Teams Nitrate Operator Relationship Specialty Start Date End Date Pat Juan FNP 230 [place] [address] PCP - General Family Medicine 05/04/22 documented as of this encounter
--- OUTSIDE RECORDS SUMMARY | 2025-06-05 11:23 | XMS_ITS | Encounter Summary ---
Author Organization [employer] Address [address] [facility] 7t [place] [address] Care Team Providers Care Billboard Poster Helper Name Role Phone [place] [facility] Primary Care Provider [phone] Reason for Visit * Reason Comments Med Refill Encounter Details Date Type Department Care Team ([facility] st Contact Info) Description 02/21/2024 Refill [facility] [address] [place], [place] [phone] [facility] 230 [place], [place] [phone] Depressive disorder Social History Tobacco Use Types [...] Description 06/29/2025 10:30 AM EDT Office Visit [facility] [address] [place] [address] Pat Juan FNP 230 [place] [address] documented as of this encounter Visit Diagnoses Diagnosis Depressive disorder Depressive disorder, not elsewhere classified documented in this encounter Additional Health Concerns Assessment Noted Time PHQ-9 Depression Total Score: 7 01/04/20 24 8:14 AM EDT documented as of this encounter Care Teams Billboard Poster Helper Relationship Specialty Start Date End Date Pat Juan FNP [address] [place] [address] PCP - General Family Medicine 05/04/22 documented as of this encounter
--- OUTSIDE RECORDS SUMMARY | 2025-06-05 11:23 | XMS_ITS | Encounter Summary ---
Author Organization [employer] Address [address] [facility] 7t [place] [address] Care Team Providers Care First Aid Attendant Name Role Phone Pat Juan LARDER COOK Primary Care Provider [phone] Encounter Details Date Type Department Care Team (Late st Contact Info) Description 08/09/2023 Abstract [facility] MED[facility]INE [address] [place], [place] [phone] Rhina Diez Social History Tobacco Use Types [...] Office Visit [facility] [address] [place] [address] Pat Juan FNP 230 [place] [address] documented as of this encounter Visit Diagnoses Not on filedocumented in this encounter Additional Health Concerns Assessment Noted Time PHQ-9 Depression Total Score: 0 07/18/20 23 9:27 AM EDT documented as of this encounter Care Teams First Aid Attendant Relationship Specialty Start Date End Date Pat Juan FNP [address] [place] [address] PCP - General Family Medicine 05/04/22 documented as of this encounter
--- OUTSIDE RECORDS SUMMARY | 2025-06-05 11:23 | XMS_ITS | Encounter Summary ---
Author Organization [employer] Address [address] [facility] 7t [place] [address] Care Team Providers Care Road Driver Name Role Phone [facility] Primary Care Provider Reason for Visit * Reason Comments Med Refill Encounter Details Date Type Department Care Team ([facility] st Contact Info) Description 11/08/2023 Refill [facility] MED[facility]INE 230 [place], [place] [phone] [facility] 230 [place], [place] [phone] Tingling of both feet Social History Tobacco [...] [facility] [address] [place] [address] Pat Juan FNP 230 [place] [address] documented as of this encounter Visit Diagnoses Diagnosis Tingling of both feet documented in this encounter Additional Health Concerns Assessment Noted Time PHQ-9 Depression Total Score: 13 024 11:25 AM EST documented as of this encounter Care Teams Road Driver Relationship Specialty Start Date End Date Pat Jaun FNP 230 [place] [address] PCP - General Family Medicine 05/04/22 documented as of this encounter
--- OUTSIDE RECORDS SUMMARY | 2025-06-05 11:23 | XMS_ITS | Encounter Summary ---
Author Organization [employer] Address [address] [facility] 7t [place] [address] Care Team Providers Care Resort Housekeeper Name Role Phone Pat Juan FREELANCE COPYWRITER Primary Care Provider [phone] Reason for Visit * Reason Comments Med Refill Encounter Details Date Type Department Care Team (Late st Contact Info) Description 10/24/[address] [facility] MEDICINE 230 [place], [place] [phone] Tracee Coulter ANP 230 [place], [place] [phone] Depressive disorder Social History Tobacco Use Types [...] [facility] [address] [place] [address] Pat Juan FNP 230 [place] [address] documented as of this encounter Visit Diagnoses Diagnosis Depressive disorder Depressive disorder, not elsewhere classified documented in this encounter Additional Health Concerns Assessment Noted Time PHQ-9 Depression Total Score: 0 07/18/20 23 9:27 AM EDT documented as of this encounter Care Teams Resort Housekeeper Relationship Specialty Start Date End Date Pat Juan FNP 230 [place] [address] PCP - General Family Medicine 05/04/22 documented as of this encounter
--- OUTSIDE RECORDS SUMMARY | 2025-06-05 11:23 | XMS_ITS | Encounter Summary ---
Author Organization [employer] Address [address] [facility] 7t [place] [address] Care Team Providers Care Assistant Professor Of Physics Name Role Phone [place] [facility] Primary Care Provider [phone] Reason for Visit * Reason Onset Date Comments Med Refill 02/29/2024 Encounter Details Date Type Department Care Team ([facility] st Contact Info) Description 02/29/2024 Telephone [facility] MEDICINE 230 [place], [place] [phone] [facility] 230 [place], [place] [phone] Med Refill Social History Tobacco Use Types [...] 10 MG tablet To be sent to: [facility] [place], [place] - [address] documented in this encounter Plan of Treatment Upcoming Encounters Date Type Department Care Team (Late st Contact Info) Description 06/29/2025 10:30 AM EDT Office Visit [facility] 230 [place] [address] Pat Juan FNP 230 [place] [address] documented as of this encounter Visit Diagnoses Not on filedocumented in this encounter Additional Health Concerns Assessment Noted Time PHQ-9 Depression Total Score: 7 01/04/20 24 8:14 AM EDT documented as of this encounter Care Teams Assistant Professor Of Physics Relationship Specialty Start Date End Date Pat Juan FNP 230 [place] [address] PCP - General Family Medicine 05/04/22 documented as of this encounter
--- OUTSIDE RECORDS SUMMARY | 2025-06-05 11:23 | XMS_ITS | Encounter Summary ---
Author Organization [employer] Address [address] [facility] 7t [place] [address] Care Team Providers Care Operating Room Technologist Name Role Phone [facility] Primary Care Provider [phone] Reason for Visit * Reason Comments Med Refill Encounter Details Date Type Department Care Team ([facility] st Contact Info) Description 04/14/2024 Refill [facility] MEDICINE 230 [place], [place] [phone] [facility] 230 [place], [place] [phone] Depressive disorder Social History Tobacco Use Types [...] 10:30 AM EDT Office Visit [facility] MEDICINE 230 [place] [address] DrakePat giraldo FNP [address] [place] [address] documented as of this encounter Visit Diagnoses Diagnosis Depressive disorder Depressive disorder, not elsewhere classified documented in this encounter Additional Health Concerns Assessment Noted Time PHQ-9 Depression Total Score: 0 03/19/20 24 8:51 AM EDT documented as of this encounter Care Teams Operating Room Technologist Relationship Specialty Start Date End Date Pat Juan FNP 230 [place] [address] PCP - General Family Medicine 05/04/22 documented as of this encounter
--- OUTSIDE RECORDS SUMMARY | 2025-06-05 11:23 | XMS_ITS | Encounter Summary ---
Author Organization [employer] Address [address] [facility] 7t [place] [address] Care Team Providers Care Clean In Places Operator Name Role Phone [place] [facility] Primary Care Provider Reason for Visit * Reason Comments Med Refill Encounter Details Date Type Department Care Team ([facility] st Contact Info) Description 01/02/2024 Refill [facility] MEDICINE 230 [place], [place] [phone] [facility] 230 [place], [place] [phone] Tingling of both feet; Depressive disorder Social [...] Visit [facility] MEDICINE 230 [place], [place] [phone] [place] Pat, [facility] 230 [place] [address] documented as of this encounter Visit Diagnoses Diagnosis Tingling of both feet Depressive disorder Depressive disorder, not elsewhere classified documented in this encounter Additional Health Concerns Assessment Noted Time PHQ-9 Depression Total Score: 0 12/17/19 24 9:18 AM EDT documented as of this encounter Care Teams Clean In Places Operator Relationship Specialty Start Date End Date Drake CARLOS Stewart [address] [place] [address] PCP - General Family Medicine 05/04/22 documented as of this encounter
--- OUTSIDE RECORDS SUMMARY | 2025-06-05 11:23 | XMS_ITS | Encounter Summary ---
Author Organization [employer] Address [address] [facility] 7t [place] [address] Care Team Providers Care Hotel Or Motel Manager Name Role Phone Pat Juan KNOCKOUT MACHINE OPERATOR Primary Care Provider [phone] Encounter Details Date Type Department Care Team (Late st Contact Info) Description 04/17/2024 Orders Only [facility] MEDICINE 230 [place], [place] [phone] Lori Werner MD 230 [place], [place] [phone] Social History Tobacco Use Types Packs/Day Years [...] Description 06/29/2025 10:30 AM EDT Office Visit [facility] MEDICINE 230 [place] [address] Pat Juan FNP 230 [place] [address] documented as of this encounter Visit Diagnoses Not on filedocumented in this encounter Additional Health Concerns Assessment Noted Time PHQ-9 Depression Total Score: 0 03/19/20 24 8:51 AM EDT documented as of this encounter Care Teams Hotel Or Motel Manager Relationship Specialty Start Date End Date Pat Juan FNP 230 [place] [address] PCP - General Family Medicine 05/04/22 documented as of this encounter
== END 2025-06-05 10:55 | disposition home or self-care (01) ==
LOC: HO.HPS 10:02
PROVIDERS: PCP Registered Nurse; Visit Provider Hospitalist
DX: J45.40 Moderate persistent asthma, uncomplicated (principal); T78.40XA Allergy, unspecified, initial encounter; R91.8 Other nonspecific abnormal finding of lung field; R74.01 Elevation of levels of liver transaminase levels; J40 Bronchitis, not specified as acute or chronic
CPT/HCPCS: 99214; G2211

== ENCOUNTER → 2025-06-05 10:01 | Outpatient (BNVA) | payer MEDICARE, SELFPAY | PROVIDERS: PCP Registered Nurse; Visit Provider Hospitalist | DX: J45.40 Moderate persistent asthma, uncomplicated (principal); R74.01 Elevation of levels of liver transaminase levels; Z91.09 Other allergy status, other than to drugs and biological substances; R40.1 Stupor; J40 Bronchitis, not specified as acute or chronic | CPT/HCPCS: 99212 ==

== ENCOUNTER → 2025-06-13 09:46 | Outpatient (BNV) | payer MEDICARE, SELFPAY | PROVIDERS: PCP Registered Nurse; Visit Provider Specialist | DX: S83.241A Other tear of medial meniscus, current injury, right knee, initial encounter (principal) | CPT/HCPCS: 73721 ==

== ENCOUNTER 2025-06-13 09:47 | Outpatient (REF) | payer MEDICARE, SELFPAY ==
--- NOTE | ~2025-06-13 | MR_ITS ---
CLINICAL HISTORY: S83.241A - Other tear of medial meniscus, current injury, right knee, in... MR right knee without gadolinium Comparison: None provided Findings: No acute fracture or pathologic bone lesion. Small simple effusion. There is a small Welsh's cyst. Anterior and posterior cruciate ligaments are intact. Collateral ligaments are intact. No disruption of the patellar retinacula or iliotibial band. Quadriceps, patellar, popliteus, and flexor tendons are intact. There is horizontal tear in the posterior horn of the lateral meniscus. There is increased signal within the posterior horn of the medial meniscus extending to the inferior surface, possible degenerative tear. The menisci are otherwise intact. IMPRESSION: 1. Horizontal posterior horn lateral, and questionable posterior horn medial, meniscal tears with joint effusion. This document has been electronically signed by: Tres Chua MD on 06/15/2025 08:55:08
--- OUTSIDE RECORDS SUMMARY | 2025-06-13 09:51 | XMS_ITS | Encounter Summary ---
Author Organization [employer] Address [address] [facility] 7t [place] [address] Care Team Providers Care Engine Pilot Name Role Phone [place] [facility] Primary Care Provider [phone] Reason for Visit * Reason Comments Med Refill Encounter Details Date Type Department Care Team ([facility] st Contact Info) Description 01/02/2024 Refill [facility] MEDICINE 230 [place], [place] [phone] [facility] 230 [place], [place] [phone] Tingling of both feet; Depressive disorder Social [...] things Several days 01/04/2024 8:14 AM EDT Jeo Castañeda Feeling down, depressed, or hopeless Not [...] Visit [facility] MEDICINE 230 [place], [place] [phone] [place] Pat, [facility] 230 [place] [address] documented as of this encounter Visit Diagnoses Diagnosis Tingling of both feet Depressive disorder Depressive disorder, not elsewhere classified documented in this encounter Additional Health Concerns Assessment Noted Time PHQ-9 Depression Total Score: 0 12/17/19 24 9:18 AM EDT documented as of this encounter Care Teams Engine Pilot Relationship Specialty Start Date End Date Drake CARLOS Stewart [address] [place] [address] PCP - General Family Medicine 05/04/22 documented as of this encounter
--- OUTSIDE RECORDS SUMMARY | 2025-06-13 09:51 | XMS_ITS | Patient Health Record ---
Author Organization [employer] Address [address] [place] [address] Care Team Providers Care Telecommunications Line Mechanic Name Role Phone Pedro Luis Duvall Unavailable [phone] Reason For Referral No Information Plan Of Treatment No Information
--- OUTSIDE RECORDS SUMMARY | 2025-06-13 09:51 | XMS_ITS | Clinical Summary ---
Author Organization [address] [facility] Address [address] [place] [address] Phone Care Team Providers Care Synthetic Filament Extruder Name Role Phone [employer] Primary Care Provider [phone] Allergies Active Allergy Reactions Criticality Noted Date [...] Problem Noted Date Diagnosed Date Meningioma, cerebral ([facility] V24, [facility] V28) 07/19/2023 Overview (07/22/2024): Last Assessment & [...] headaches which were treated with Fioricet in [place] but she has been unable to obtain it here. I will try again to order it for her from the [facility] pharmacy. Immunizations Name Administration Dates Next [...] HISTORICAL LITHOTRIPSY OTHER SURGICAL HISTORY 07/31/2023 PROCEDURE: [place] CRNEC TREPHINE BONE FLAP MENINGIOMA SUPRATENTOR; COMMENT: [...] topic Insurance [employer] MEDICARE ADVANTAGE Care Teams Synthetic Filament Extruder Relationship Specialty Start Date End Date [place] [address] [place] [address] PCP - General Family Medicine 07/28/24
--- OUTSIDE RECORDS SUMMARY | 2025-06-13 09:51 | XMS_ITS | Clinical Summary ---
Author Organization [employer] Address [address] [facility] 7t [place] [address] Care Team Providers Care Stream Control Officer Name Role Phone Pat Juan MIXER OPERATOR RAW SALT Primary Care Provider [phone] Allergies Active Allergy Reactions Criticality Noted Date Comments Morphine Rash Low 03/24/2011 Other reaction(s): Rash Medications * This document contains information received from the source organization and may not represent a complete record from that organization. glucose blood (Shopping MailTouch Ultra) test strip USE 1 STRIP by [...] 1 Active Blood Glucose Monitoring Suppl (FreeStyle [place] Lite) w/Device kitIndications:Pr ediabetes,Hypogly cemia Use to [...] complication, without long-term current use of insulin ([facility]) USE TO TEST BLOOD SUGAR ONCE A DAY 1 kit Active glucose blood (OneTouch Ultra) test stripIndications: Type 2 diabetes mellitus without complication, without long-term current use of insulin ([facility]) USE TO TEST BLOOD SUGAR ONCE A DAY 100 each 5 Active OneTouch Delica Lancets 33G miscIndications:T ype 2 diabetes mellitus without complication, without long-term current use of insulin ([facility]) USE TO TEST BLOOD SUGAR [...] MG disintegrating tabletIndications :Depression, major, in remission ([facility]) TAKE 1 TABLET BY MOUTH DAILY AT BEDTIME 30 tablet 3 Active cetirizine (ZyrTEC) 10 MG tabletIndications :Seasonal allergies TAKE 1 TABLET BY MOUTH EVERY DAY NEEDED FOR ALLERGIES 90 tablet 1 Active Alcohol Swabs (Easy Touch Alcohol Prep Medium) 70 % padsIndications:P rediabetes,Hypogl ycemia USE TO TEST BLOOD SUGAR 1 TIMES DAILY 100 each 3 Active meloxicam (Mobic) 7.5 MG tabletIndications :Muscle spasm TAKE 1 TABLET BY MOUTH EVERY DAY 30 tablet Active Multiple Vitamin (Daily-Jacquelyn) tablet TAKE 1 TABLET BY MOUTH EVERY DAY WITH FOOD 90 tablet 2 09/05/2 025 Active zolpidem (Ambien) 10 MG tabletIndications :Depressive disorder TAKE 1 TABLET BY MOUTH DAILY AT BEDTIME 28 tablet 025 Active Multiple Vitamin (Multivitamin) tablet Take 1 tablet by mouth Once per day. TAKE 1 TABLET BY MOUTH EVERY DAY WITH FOOD 90 tablet 3 024 2024 Discontinued meloxicam (Mobic) 7.5 MG tabletIndications :Muscle spasm TAKE 1 TABLET BY MOUTH EVERY DAY 30 tablet 025 2024 Discontinued zolpidem (Ambien) 10 MG tabletIndications :Depressive disorder TAKE 1 TABLET BY MOUTH DAILY AT BEDTIME 28 tablet 025 2024 Discontinued(R eorder (will not trigger notification to Pharmacy)) Active Problems Problem Noted Date Diagnosed Date [...] idiopathic constipation 05/05/2023 Overview (05/05/2023): Followed by [facility] Linzess Numbness and tingling in left [...] reflux disease 06/02/2013 Overview (10/10/2024): Followed by [facility] Negative EGD 2021 Pantoprazole Pt seen [...] to reach out to [facility] team as needed, and Patient to engage [...] oxygen 2L PRN albuterol Followed by pulmonology [facility] Assessment & Plan (02/03/2025 4:57 PM EDT): Now stable continue with same interventions Assessment & Plan (10/30/2024 10:58 AM EST): Mild exacerbation due to Covid infection. Increase Symbicort to Que 6 hours prn SOB/cough. FU with [employer]. Assessment & Plan (08/18/2024 11:43 AM EST): [...] scheduled already for 12/17/2023 No psychiatric disorder foamanda watson after evaluation 07/19/2023 03/19/2024 Encounter for counseling [...] support system PLAN: 1. Follow up with [facility]: Recommended for follow-up: 07/31 @ 10am 2. Patient goal is to continue controlling symptoms. 3. Behavioral Recommendations a. F/u in 2 weeks. b. Continue use of coping skills Hyperkalemia 02/20/2018 10/24/2022 Encounters Date Type Department Care Team Description 06/05/2025 Refill [facility] [address] [facility] [place] [address] [place] [facility] Depressive disorder 05/29/2025 Refill [facility] [address] [facility] [place] [place] [address] Lori Werner MD 05/18/2025 Refill [facility] 230 [place] [address] Olivia Ramirez MD Muscle spasm 05/13/2025 10:30 AM EDT Clinical Support [facility] [address] [facility] [place] [address] Rochelle Horn RN Primary hypertension 05/13/2025 Refill [facility] 230 [facility] [place] [address] [place] [facility] Depressive disorder 05/13/2025 Telephone [facility] 230 [place] [address] Rochelle Horn RN Blood Pressure Check 05/13/2025 Travel 05/11/2025 Refill [facility] 230 [place] [address] Lori Werner MD Prediabetes; Hypoglycemia 04/30/2025 Telephone [facility] 230 [place] [address] [place] [facility] oct recall 04/22/2025 11:00 AM EDT Clinical Support [facility] [address] [facility] [place] [place] [address] Nadia Michelle RN Primary hypertension 04/22/2025 Refill [facility] [address] [place] [address] Rochelle Horn, JACE Essential hypertension 04/22/2025 Travel 04/16/2025 Refill [facility] [address] [place], [place] [address] Pat Juan FNP Depressive disorder; Muscle spasm 04/08/2025 10:00 AM EDT Clinical Support [facility] [address] [place] [address] Kristy Alcaraz RN Essential hypertension 04/08/2025 Telephone [facility] [address] [place] [address] Pat Juan FNP Med Refill 04/08/2025 Orders Only [facility] [address] [place] [place], [place] [address] Pat Juan FNP 04/08/2025 Refill [facility] [place] [address] Pat Juan FNP Essential hypertension; Depression, major, in remission (CMS/HCC) 04/08/2025 Travel 04/08/2025 Refill [facility] [place] [address] Pat Juan FNP Depression, major, in remission (CMS/HCC) 03/30/2025 Refill [facility] [address] [place] [address] Pat Juan FNP Tingling of both feet 03/25/2025 11:15 AM EDT Office Visit [facility] [place] [address] Pat Juan FNP Essential hypertension (Primary Dx); Muscle spasm; Dietary counseling; Exercise counseling 03/25/2025 Travel 03/24/2025 Telephone [facility] [place] [address] Pat Juan FNP chart prep 03/20/2025 Refill [facility] [place] [place] [address] Pat Juan FNP Muscle spasm 03/18/2025 Patient Outreach [facility] [place] [address] Pat Juan FNP Pre-visit Planning (SDOH screening positive and Tobacco screening negative) 03/16/2025 Refill [facility] [address] [place] [address] [place] FNP Depressive disorder from Last 3 Months [...] AM EDT Office Visit [facility] [address] [place] [address] [place] [facility] 230 [place] [address] Health Maintenance Due Date Last Done Comments Alcohol/Substance Use Screening 1962 Eye Exam 09/24/2023 09/24/2021 RSV Patients and Patients Aged 60 years or older (1 - 1-dose 75+ series) 2023 Diabetes: Foot Exam 03/19/2025 03/19/2024, 03/19/2024, 03/19/2024, Additional history exists COVID-19 Vaccine ( - season) 2025 01/12/2021, 12/15/2020 Influenza Vaccine (#1) 2025 , 06/08/2023, 06/08/2023, Additional history exists Diabetes: Hemoglobin A1C 08/06/2025 025, 08/18/2024, 12/17/2023, Additional history exists Diabetes: Urine Protein Screening 09/15/2025 09/15/2024, 05/22/2022 Lipid Panel 09/15/2025 09/15/2024, 05/, 05/22/2022 SDOH Screening 03/18/2026 03/18/2025 Depression Screening [...] 10:05 AM EDT) Cancelled Chemistry SEE NOTE [facility] Comment:THE FOLLOWING TESTS WERE CANCELLED: BMPREASON: Specimen hemolyzed 04/08/2025 10:0 5 AM EDT 04/08/2025 11:31 AM EDT [facility] MIXER OPERATOR RAW SALT HISTORICAL/NON ORDERABLE LABS Final Result [facility] [address] [place] [address] [phone] * POCT HGB A1C (02/03/2025 2:05 PM EDT) Hemoglobin A1C 5.6 4.0 - 6.0 % Blood 02/03/2025 2:05 PM EDT Lori Santoyo MD POINT OF CARE TEST EN TER/EDIT ORDERABLES Final Result * Albumin, Random Urine W/Creatinine (09/15/2024 9:23 AM EST) Creatinine, Urine 65.58 mg/dL [facility] Microalbumin Urine <5.0 mg/L [facility] Microalbum Creatinine Ratio Ur TNP <30 ug/mg cr [facility] Comment:Unable to calculate albumin/creatinine ratio due to lowmicroalbumin or creatinine result. Urine 09/15/2024 9:23 AM EST 09/15/2024 10:51 AM EST [facility] MIXER OPERATOR RAW SALT LAB URINE ORDERABLES Final Re sult [facility] [address] [place] [address] [phone] * Lipid Panel, Standard (09/15/2024 9:18 AM EST) Triglycerides 114 <150 mg/dL [facility] Comment:Desirable Triglyceri de: less than 150 mg/dLBorderline High Triglyceride 150-199 mg/dLHigh Triglyceride: 200-499 mg/dLVery High Triglyceride: greater than or equal to 5OO mg/dL Cholesterol 168 <200 mg/dL [facility] Comment:Desirable Cholestero l: less than 200 mg/dLBorderline High Cholesterol: 200-239 mg/dLHigh Cholesterol: greater than 239 mg/dL LDL Cholesterol Calculated 81 <100 mg/dL [facility] Comment:Desirable LDL: less than 100 mg/dLNear Optimal/Above Optimal LDL: 110- 129 mg/dLBorderline High LDL: 130-159 mg/dLHigh LDL: 160-189 mg/dLVery High LDL: greater than or equal to 190 mg/dL HDL Cholesterol 65 >40 mg/dL [facility] Comment:Desirable HDL: great er than 40 mg/dL Note: This HDL assay may give artificially low results in patients with liver disease. Blood Venous blood specimen / Unknown 09/15/2024 9:18 AM EST 09/15/2024 10:53 AM EST [facility] LAB BLOOD ORDERABLES Final Re sult Performing Organization Address City/[facility]/ZIP Co de Phone Number [facility] [address] [place] [phone] * Hepatitis C Antibody with Reflex to HCV, RNA, Quantitative, Real-Time PCR (01/31/2023 4:01 PM EDT) Hepatitis C Antibody NON-REACT HERRERA NON-REACT HERRERA [employer] Index 0.09 <1.00 Team My Mobile Comment: HCV antibody was non-reactive. There is no laboratory evidence of HCV infection. In most cases, no further action is required. However, if recent HCV exposure is suspected, a test for HCV RNA (test code 52473) is suggested. For additional information please refer to http://education.Roadnet/faq/WHL81f7 (This link is being provided for informational/ educational purposes only.) Blood Venous blood specimen / Unknown 01/31/2023 4:01 PM EDT 01/31/2023 4:01 PM EDT [facility] BLOOD ORDERABLES Final Re sult Performing Organization Address City/[facility]/ZIP Co de Phone Number [facility] [address], [place] [address] [employer] [place] [employer] [address] [place] [address] * Hm Colonoscopy (08/24/2022) Colonoscopy Normal Normal Comment:[facility] - negative 08/24/2022 us Historical Provider HEALTH MAINTENANCE Final Result from Last 3 Months or Most Recently Relevant to Health Maintenance Insurance [employer] MEDICARE REPLACEMENT [facility] Care Teams Stream Control Officer Relationship Specialty Start Date End Date Pat Juan FNP [address] [place] [phone] PCP - General Family Medicine 05/04/22
--- OUTSIDE RECORDS SUMMARY | 2025-06-13 09:51 | XMS_ITS | Clinical Summary ---
Author Organization [facility] Address [address] [place] [address] Care Team Providers Care Line Painting Machine Operator Name Role Phone Unavailable Primary Care [...] Drug Screen 09/24/2024 Depression Annual Screen 09/24/2024 [id number] (3 - 2024- season) 2025 021, 12/15/2020 Imm-Influenza (#1) 2025 08/13/2019, 1 10/07/2016, 06/17/2015, Additional history exists Imm-Pneumococcal 50+ Completed 08/07/2017, 09/02/2015, 09/26/2007 Insurance [facility]
--- OUTSIDE RECORDS SUMMARY | 2025-06-13 09:51 | XMS_ITS | Encounter Summary ---
Author Organization [employer] Address [address] [facility] 7t [place] [address] Care Team Providers Care Ornamental Iron Worker Apprentice Name Role Phone [place] Primary Care Provider [phone] Reason for Visit * Reason Onset Date Comments Med Refill 01/21/2024 Encounter Details Date Type Department Care Team ([facility] st Contact Info) Description 01/21/2024 Telephone [facility] MEDICINE 230 [place], [place] [phone] [facility] 230 [place], [place] [phone] Med Refill Social History Tobacco Use Types [...] 11:57 AM EDT Medication was sent to [facility] on 11/26/23 #30 with 2 refills * Telephone Encounter - Eliana Varela - 01/21/2024 11:01 AM EDT TC from pt requesting medication refill. Medications needing refill : mirtazapine (Remeron SolTab) 45 MG disintegrating tablet To be sent to: [facility] [place], [place] - [address] documented in this encounter Plan of Treatment Upcoming Encounters Date Type Department Care Team (Late st Contact Info) Description 06/29/2025 10:30 AM EDT Office Visit [facility] MEDICINE [address] [place] [address] Pat Juan FNP [address] [place] [address] documented as of this encounter Visit Diagnoses Not on filedocumented in this encounter Additional Health Concerns Assessment Noted Time PHQ-9 Depression Total Score: 7 01/04/20 24 8:14 AM EDT documented as of this encounter Care Teams Ornamental Iron Worker Apprentice Relationship Specialty Start Date End Date Pat Juan FNP [address] [place] [address] PCP - General Family Medicine 05/04/22 documented as of this encounter
--- OUTSIDE RECORDS SUMMARY | 2025-06-13 09:51 | XMS_ITS | Encounter Summary ---
Author Organization [employer] Address [address] [facility] 7t [place] [address] Care Team Providers Care Counsel Name Role Phone [facility] Primary Care Provider [phone] Reason for Visit * Reason Comments Med Refill Encounter Details Date Type Department Care Team ([facility] st Contact Info) Description 10/15/2024 Refill [facility] MEDICINE 230 [place], [place] [phone] [facility] 230 [place], [place] [phone] Depressive disorder Social History Tobacco Use Types [...] Description 06/29/2025 10:30 AM EDT Office Visit [facility] MEDICINE 230 [place] [address] DrakePat giraldo FNP 230 [place] [address] documented as of this encounter Visit Diagnoses Diagnosis Depressive disorder Depressive disorder, not elsewhere classified documented in this encounter Additional Health Concerns Assessment Noted Time PHQ-9 Depression Total Score: 0 03/19/20 24 8:51 AM EDT documented as of this encounter Care Teams Counsel Relationship Specialty Start Date End Date Pat Juan FNP 230 [place] [address] PCP - General Family Medicine 05/04/22 documented as of this encounter
--- OUTSIDE RECORDS SUMMARY | 2025-06-13 09:51 | XMS_ITS | Encounter Summary ---
Author Organization [employer] Address [address] [facility] 7t [place] [address] Care Team Providers Care Handicapped Teacher Name Role Phone [place] [facility] Primary Care Provider [phone] Reason for Visit * Reason Onset Date Comments Med Refill 04/08/2025 Encounter Details Date Type Department Care Team ([facility] st Contact Info) Description 04/08/2025 Telephone [facility] MEDICINE 230 [place], [place] [phone] [facility] 230 [place], [place] [phone] Med Refill Social History Tobacco Use Types [...] MG disintegrating tablet To be sent to: [facility] [place] [place] - [address] [facility] [address] documented in this encounter Plan of Treatment Upcoming Encounters Date Type Department Care Team (Late st Contact Info) Description 06/29/2025 10:30 AM EDT Office Visit [facility] MEDICINE 230 [place] [address] DrakePat giraldo FNP [address] [place] [address] documented as of this encounter Visit Diagnoses Not on filedocumented in this encounter Additional Health Concerns Assessment Noted Time PHQ-9 Depression Total Score: 0 03/25/20 25 11:20 AM EDT documented as of this encounter Care Teams Handicapped Teacher Relationship Specialty Start Date End Date Pat Juan FNP [address] [place] [address] PCP - General Family Medicine 05/04/22 documented as of this encounter
--- OUTSIDE RECORDS SUMMARY | 2025-06-13 09:51 | XMS_ITS | Encounter Summary ---
Author Organization [employer] Address [address] [facility] 7t [place] [address] Care Team Providers Care Refinery Operator Crude Unit Name Role Phone [place] Primary Care Provider [phone] Reason for Visit * Reason Comments Med Refill Encounter Details Date Type Department Care Team ([facility] st Contact Info) Description 02/21/2024 Refill [facility]IC[facility] 230 [place], [place] [phone] [facility] 230 [place], [place] [phone] Depressive disorder Social History Tobacco Use Types [...] [facility] [address] [place] [address] Pat Juan FNP [address] [place] [address] documented as of this encounter Visit Diagnoses Diagnosis Depressive disorder Depressive disorder, not elsewhere classified documented in this encounter Additional Health Concerns Assessment Noted Time PHQ-9 Depression Total Score: 7 01/04/20 24 8:14 AM EDT documented as of this encounter Care Teams Refinery Operator Crude Unit Relationship Specialty Start Date End Date Pat Juan FNP [address] [place] [address] PCP - General Family Medicine 05/04/22 documented as of this encounter
--- OUTSIDE RECORDS SUMMARY | 2025-06-13 09:51 | XMS_ITS | Encounter Summary ---
Author Organization [employer] Address [address] [facility] 7t [place] [address] Care Team Providers Care Shake Loader Name Role Phone Pat Juan RECREATION ATTENDANT SUPERVISOR Primary Care Provider [phone] Encounter Details Date Type Department Care Team (Late st Contact Info) Description 08/09/[address] [facility] MEDICINE 230 [place], [place] [phone] Rhina Diez Social History Tobacco Use Types [...] Description 06/29/2025 10:30 AM EDT Office Visit [facility] MEDICINE [address] [place] [address] Pat Juan FNP [address] [place] [address] documented as of this encounter Visit Diagnoses Not on filedocumented in this encounter Additional Health Concerns Assessment Noted Time PHQ-9 Depression Total Score: 0 07/18/20 23 9:27 AM EDT documented as of this encounter Care Teams Shake Loader Relationship Specialty Start Date End Date Pat Juan FNP [address] [place] [address] PCP - General Family Medicine 05/04/22 documented as of this encounter
--- OUTSIDE RECORDS SUMMARY | 2025-06-13 09:51 | XMS_ITS | Encounter Summary ---
Author Organization [employer] Address [address] [facility] 7t [place] [address] Care Team Providers Care Aircraft Restorer Name Role Phone [facility] Primary Care Provider [phone] Reason for Visit * Reason Comments Med Refill Encounter Details Date Type Department Care Team ([facility] Contact Info) Description 11/06/2022 Refill [facility] [address] [place], [place] [phone] [facility] 230 [place], [place] [phone] Depressive disorder Social History Tobacco Use Types [...] Upcoming Encounters Date Type Department Care Team ([facility] Contact Info) Description 06/29/2025 10:30 AM EDT Office Visit [facility] MEDICINE 230 [place], [place] [phone] [facility] 230 [place], [place] [phone] documented as of this encounter Visit Diagnoses Diagnosis Depressive disorder Depressive disorder, not elsewhere classified documented in this encounter Additional Health Concerns Assessment Noted Time PHQ-9 Depression Total Score: 0 10/24/19 23 10:40 AM EST documented as of this encounter Care Teams Aircraft Restorer Relationship Specialty Start Date End Date Pat Juan FNP [address] [place] [address] PCP - General Family Medicine 05/04/22 documented as of this encounter
--- OUTSIDE RECORDS SUMMARY | 2025-06-13 09:51 | XMS_ITS | Encounter Summary ---
Author Organization [employer] Address [address] [facility] 7t [place] [address] Care Team Providers Care Candlemaker Name Role Phone [place] [facility] Primary Care Provider [phone] Reason for Visit * Reason Comments Med Refill Encounter Details Date Type Department Care Team ([facility] st Contact Info) Description 11/08/2023 Refill [facility] MEDICINE 230 [place], [place] [phone] [facility] 230 [place], [place] [phone] Tingling of both feet Social History Tobacco [...] Office Visit [facility] MEDICINE [address] [place] [address] Pat Juan FNP [address] [place] [address] documented as of this encounter Visit Diagnoses Diagnosis Tingling of both feet documented in this encounter Additional Health Concerns Assessment Noted Time PHQ-9 Depression Total Score: 13 024 11:25 AM EST documented as of this encounter Care Teams Candlemaker Relationship Specialty Start Date End Date Pat Juan FNP 230 [place] [address] PCP - General Family Medicine 05/04/22 documented as of this encounter
--- OUTSIDE RECORDS SUMMARY | 2025-06-13 09:51 | XMS_ITS | Encounter Summary ---
Author Organization [employer] Address [address] [facility] 7t [place] [address] Care Team Providers Care Retail And Restaurant Name Role Phone [facility] Primary Care Provider [phone] Reason for Visit * Reason Comments Med Refill Encounter Details Date Type Department Care Team ([facility] st Contact Info) Description 12/06/2023 Refill [facility] MEDICINE 230 [place], [place] [phone] [facility] 230 [place], [place] [phone] Depressive disorder Social History Tobacco Use Types [...] EDT Office Visit [facility] MEDICINE 230 [place] [address] Pat Juan FNP 230 [place] [address] documented as of this encounter Visit Diagnoses Diagnosis Depressive disorder Depressive disorder, not elsewhere classified documented in this encounter Additional Health Concerns Assessment Noted Time PHQ-9 Depression Total Score: 13 024 11:25 AM EST documented as of this encounter Care Teams Retail And Restaurant Relationship Specialty Start Date End Date Pat Juan FNP [address] [place] [address] PCP - General Family Medicine 05/04/22 documented as of this encounter
--- OUTSIDE RECORDS SUMMARY | 2025-06-13 09:51 | XMS_ITS | Encounter Summary ---
Author Organization [employer] Address [address] [facility] 7t [place] [address] Care Team Providers Care Artificial Breeding Distributor Name Role Phone [facility] Primary Care Provider [phone] Reason for Visit * Reason Comments Med Refill Encounter Details Date Type Department Care Team ([facility] st Contact Info) Description 04/14/2024 Refill [facility] [address] [place], [place] [phone] [facility] [address] [place], [place] [phone] Depressive disorder Social History Tobacco Use Types [...] Office Visit [facility] [address] [place] [address] DrakePat giraldo FNP [address] [place] [address] documented as of this encounter Visit Diagnoses Diagnosis Depressive disorder Depressive disorder, not elsewhere classified documented in this encounter Additional Health Concerns Assessment Noted Time PHQ-9 Depression Total Score: 0 03/19/20 24 8:51 AM EDT documented as of this encounter Care Teams Artificial Breeding Distributor Relationship Specialty Start Date End Date Pat Juan FNP [address] [place] [address] PCP - General Family Medicine 05/04/22 documented as of this encounter
--- OUTSIDE RECORDS SUMMARY | 2025-06-13 09:51 | XMS_ITS | Encounter Summary ---
Author Organization [employer] Address [address] [facility] 7t [place] [address] Care Team Providers Care Ordnance Keeper Name Role Phone Pat Juan POSITION CLERK Primary Care Provider [phone] Encounter Details Date Type Department Care Team (Late st Contact Info) Description 04/17/2024 Orders Only [facility] [address] [place], [place] [phone] Lori Werner MD [address] [place], [place] [phone] Social History Tobacco Use Types Packs/Day Years [...] Description 06/29/2025 10:30 AM EDT Office Visit [facility] [address] [place] [address] Pat Juan FNP [address] [place] [address] documented as of this encounter Visit Diagnoses Not on filedocumented in this encounter Additional Health Concerns Assessment Noted Time PHQ-9 Depression Total Score: 0 03/19/20 24 8:51 AM EDT documented as of this encounter Care Teams Ordnance Keeper Relationship Specialty Start Date End Date Pat Juan FNP [address] [place] [address] PCP - General Family Medicine 05/04/22 documented as of this encounter
--- OUTSIDE RECORDS SUMMARY | 2025-06-13 09:51 | XMS_ITS | Encounter Summary ---
Author Organization [employer] Address [address] [facility] 7t [place] [address] Care Team Providers Care Analytical Manager Name Role Phone [facility] Primary Care Provider [phone] Reason for Visit * Reason Onset Date Comments Med Refill 02/29/2024 Encounter Details Date Type Department Care Team ([facility] st Contact Info) Description 02/29/2024 Telephone [facility]INE 230 [place], [place] [phone] [facility] [address] [place], [place] [phone] Med Refill Social History Tobacco Use Types [...] 10 MG tablet To be sent to: [facility] [place], [place] - [address] documented in this encounter Plan of Treatment Upcoming Encounters Date Type Department Care Team (Late st Contact Info) Description 06/29/2025 10:30 AM EDT Office Visit [facility] [address] [place] [address] Pat Juan FNP [address] [place] [address] documented as of this encounter Visit Diagnoses Not on filedocumented in this encounter Additional Health Concerns Assessment Noted Time PHQ-9 Depression Total Score: 7 01/04/20 24 8:14 AM EDT documented as of this encounter Care Teams Analytical Manager Relationship Specialty Start Date End Date Pat Juan FNP [address] [place] [address] PCP - General Family Medicine 05/04/22 documented as of this encounter
--- OUTSIDE RECORDS SUMMARY | 2025-06-13 09:51 | XMS_ITS | Encounter Summary ---
Author Organization [employer] Address [address] [facility] 7t [place] [address] Care Team Providers Care Knockout Machine Operator Name Role Phone Pat Juan CHILD ADOLESCENT PSYCHIATRIST Primary Care Provider [phone] Reason for Visit * Reason Comments Med Refill Encounter Details Date Type Department Care Team (Late st Contact Info) Description 10/24/2023 Refill [facility] [address] [place], [place] [phone] Tracee Coulter ANP [address] [place], [place] [phone] Depressive disorder Social History Tobacco Use Types [...] Description 06/29/2025 10:30 AM EDT Office Visit [facility] [address] [place] [address] Pat Juan FNP [address] [place] [address] documented as of this encounter Visit Diagnoses Diagnosis Depressive disorder Depressive disorder, not elsewhere classified documented in this encounter Additional Health Concerns Assessment Noted Time PHQ-9 Depression Total Score: 0 07/18/20 23 9:27 AM EDT documented as of this encounter Care Teams Knockout Machine Operator Relationship Specialty Start Date End Date Pat Juan FNP [address] [place] [address] PCP - General Family Medicine 05/04/22 documented as of this encounter
== END 2025-06-13 09:48 | disposition home or self-care (01) ==
LOC: HO.MRI 09:47
PROVIDERS: PCP Registered Nurse; Visit Provider Orthopaedic Surgery
DX: S83.241A Other tear of medial meniscus, current injury, right knee, initial encounter (principal)
CPT/HCPCS: 73721

== ENCOUNTER 2025-06-16 08:57 | Outpatient (AMB) | payer MEDICARE, SELFPAY ==
--- NOTE | 2025-06-16 09:30 | A.OFFVIS_ITS ---
Vital Signs 06/16/25 09:31 Height 4 ft 11 in Weight 146 lb BMI 29.5 BP 142/74 H Blood Pressure Location Rt brachial Position Sitting Pulse 66 Pulse Source Pulse Oximeter Pulse Oximetry (%) 92 Oxygen Delivery Method Room Air Intake Visit Reasons: 30 m. 6 mo f/u Intake Note: ESTABLISHED PATIENT for GERD + Constipation mgmt. Chief Complaint; Pt denies any GI changes or concerns at this time. Confirms that she is still taking Rx as instructed and w/o complication. Sandblaster Paint Sprayer Required: Yes Sandblaster Paint Sprayer Services: Sandblaster Paint Sprayer Present Sandblaster Paint Sprayer Name: Prince Dao [id number] Information Interpreted: clinical only Accompanied by: Self / Same As Patient Allergies morphine (MORPHINE) Allergy (Unknown, Verified 07/16/25 14:47) RASH HPI HPI 30 m. 6 mo f/u: Details: LAST VISIT GERD (gastroesophageal reflux disease) Chronic idiopathic constipation Plan Continue pantoprazole in the morning and famotidine at bedtime. Avoid dietary triggers and late night snacking. Staying upright for minimal 3 hours after meals discussed with patient. Continue Linzess. Increase fluid intake and activity to promote better bowel motility. Patient will follow-up in 6 months, sooner on as needed basis. She is agreeable to this plan and verbalizes understanding of instructions. She was given the opportunity to ask questions and all questions answered. * TODAY'S VISIT Patient is here today for follow-up. Patient reports that she has been doing fairly well. She is taking Linzess and is able to move her bowels better. Patient also is taking pantoprazole in the morning and famotidine at bedtime. Reports that she is trying not to eat late at night. Her symptoms of acid reflux are suppressed at this time. Couple episodes of acid reflux, however patient believes it was related to the food that she ate. Patient denies dyspepsia, dysphagia or odynophagia. Denies melena, hematochezia, unintentional weight loss or ribbon like stools. Patient denies any GI concerning symptoms today. [facility] Medical History Transaminitis Pulmonary nodules Allergies Kidney stone Back pain Arthritis HLD (hyperlipidemia) Hypothyroidism Diabetes Hypertension Asthma Hyperthyroidism Vitamin D deficiency Primary hyperparathyroidism Postablative hypothyroidism Surgical History History of craniotomy Hx of colonoscopy History of esophagogastroduodenoscopy (EGD) Hx of endoscopy S/P subtotal parathyroidectomy History of carpal tunnel release of both wrists Hx of cataract removal with insertion of prosthetic lens Hx of lithotripsy Hx of cholecystectomy Hx of hysterectomy Family History Father No problems noted. Mother No problems noted. Social History Household Members: Family Are you a primary caregivers non medical to a significant other at home: No Do you presently have visiting nurse or other home services: No Alcohol intake: never Patient Tobacco Use Status: Never used Tobacco Review of Systems Const Denies weight gain and Denies weight loss ENT Reports no additional complaints, Denies dysphagia and Denies odynophagia Card Reports no additional complaints Resp Reports no additional complaints GI Denies abdominal pain, Denies belching, Denies melena, Denies bloating, Denies change in bowel habits, Denies dysphagia, Denies excessive flatus, Denies dyspepsia, Denies heartburn, Denies diarrhea, Denies loose stools, Denies nausea, Denies odynophagia and Denies vomiting Musc Reports no additional complaints Neuro Reports no additional complaints Psych Reports no additional complaints Endo Reports no additional complaints Physical Exam Vital Signs: Last Vital Signs Pulse 66 06/16/25 09:31 BP 142/74 H 06/16/25 09:31 Pulse Ox 92 06/16/25 09:31 Oxygen Delivery Method Room Air 06/16/25 09:31 BMI result Body Mass Index 29.5 Const General: healthy appearing, no acute distress and well developed Nutritional Appearance: well nourished Orientation/consciousness: patient oriented x3 Resp Effort & Inspection: normal respiratory effort, able to speak in complete sentences, no tracheal deviation and symmetric chest movement Auscultation: clear to auscultation bilaterally Cardio Rate: regular rate GI Inspection: Yes normal to inspection and No distended Palpation (GI): Soft to palpation, not firm, nontender and No hepatosplenomegaly present Auscultation: normal bowel sounds General: Yes no CVA tenderness Back/Spine/Pelvis Back: no CVA tenderness Skin General skin exam: elasticity normal, turgor normal and dry skin Neuro General: patient oriented x3 Psych Appearance: grossly normal Mental Status: mental status grossly normal Assessment & Plan Assessment & Plan (1) Gastroesophageal reflux disease: Code(s): K21.9 - Gastro-esophageal reflux disease without esophagitis Qualifiers: Esophagitis presence: esophagitis presence not specified Qualified Code(s): K21.9 - Gastro-esophageal reflux disease without esophagitis (2) Chronic idiopathic constipation: Code(s): K59.04 - Chronic idiopathic constipation Plan Continue current treatment with pantoprazole in the morning and famotidine as needed at bedtime. Avoid dietary triggers and late night snacking. Staying upright for minimum 3 hours after meals discussed with patient. Patient can continue taking Linzess. Increase fluid intake and activity to promote better bowel motility. Patient will follow-up in our office in 6 months. Patient will call our office if she will have any GI concerning symptoms. She is agreeable to this plan and verbalizes understanding of instructions. She was given the opportunity to ask questions and all questions answered. Medications: Refilled famotidine 20 mg PO BEDTIME 90 tabs 2RF K21.9 - Gastro-esophageal reflux disease without esophagitis pantoprazole 40 mg PO QAM 90 tabs 1RF K21.9 - Gastro-esophageal reflux disease without esophagitis linaclotide (Linzess) 290 mcg PO QAM 90 caps 3RF K59.00 - Constipation, unspecified Coding Level of Care Code Est Pt Level 3 (45668) Diagnoses Gastroesophageal reflux disease, unspecified whether esophagitis present K21.9 Esophagitis presence: esophagitis presence not specified Chronic idiopathic constipation K59.04 Time Spent (min) 25 Comment 15 minutes spent with patient and additional 10 minutes spent reviewing her records
[2025-06-16 09:31] VITALS: BP 142/74; PULSE 66; O2SAT 92; BMI 29.5
--- OUTSIDE RECORDS SUMMARY | 2025-06-16 10:15 | XMS_ITS | Encounter Summary ---
Author Organization [email or web address] Address [address] [facility] 7t [place] [address] Care Team Providers Care Microbiology Laboratory Manager Name Role Phone [place] [facility] Primary Care Provider [phone] Reason for Visit * Reason Comments Med Refill Encounter Details Date Type Department Care Team ([facility] st Contact Info) Description 11/08/2023 Refill [facility]INE [address] [place], [place] [phone] [facility] 230 [place], [place] [phone] Tingling of both feet Social History Tobacco [...] 06/29/2025 10:30 AM EDT Office Visit [facility]INE [address] [place] [address] Pat Juan FNP [address] [place] [address] documented as of this encounter Visit Diagnoses Diagnosis Tingling of both feet documented in this encounter Additional Health Concerns Assessment Noted Time PHQ-9 Depression Total Score: 13 024 11:25 AM EST documented as of this encounter Care Teams Microbiology Laboratory Manager Relationship Specialty Start Date End Date Pat Juan FNP [address] [place] [address] PCP - General Family Medicine 05/04/22 documented as of this encounter
--- OUTSIDE RECORDS SUMMARY | 2025-06-16 10:15 | XMS_ITS | Patient Health Record ---
Author Organization [employer] Address [address] [place] [address] Care Team Providers Care Bridges And Buildings Supervisor Name Role Phone Pedro Luis Duvall Unavailable [phone] Reason For Referral No Information Plan Of Treatment No Information
--- OUTSIDE RECORDS SUMMARY | 2025-06-16 10:15 | XMS_ITS | Encounter Summary ---
Author Organization [email or web address] Address [address] [facility] 7t [place] [address] Care Team Providers Care Automatic Log Cut Off Sawyer Name Role Phone [facility] Primary Care Provider [phone] Reason for Visit * Reason Comments Med Refill Encounter Details Date Type Department Care Team ([facility] st Contact Info) Description 12/06/2023 Refill [facility] MED[facility] [address] [place], [place] [phone] [facility] 230 [place], [place] [phone] Depressive disorder Social History Tobacco Use Types [...] Office Visit [facility] MED[facility]INE 230 [place] [address] Pat Juan FNP [address] [place] [address] documented as of this encounter Visit Diagnoses Diagnosis Depressive disorder Depressive disorder, not elsewhere classified documented in this encounter Additional Health Concerns Assessment Noted Time PHQ-9 Depression Total Score: 13 024 11:25 AM EST documented as of this encounter Care Teams Automatic Log Cut Off Sawyer Relationship Specialty Start Date End Date Pat Juan FNP [address] [place] [address] PCP - General Family Medicine 05/04/22 documented as of this encounter
--- OUTSIDE RECORDS SUMMARY | 2025-06-16 10:15 | XMS_ITS | Clinical Summary ---
Author Organization [facility] Address [address] [place] [address] Care Team Providers Care Doweling Machine Operator Name Role Phone Unavailable Primary [...] Drug Screen 09/24/2024 Depression Annual Screen 09/24/2024 [id number] (3 - 2024- season) 2025 021, 12/15/2020 Imm-Influenza (#1) 2025 08/13/2019, 1 10/07/2016, 06/17/2015, Additional history exists Imm-Pneumococcal 50+ Completed 08/07/2017, 09/02/2015, 09/26/2007 Insurance [employer] [employer]
--- OUTSIDE RECORDS SUMMARY | 2025-06-16 10:15 | XMS_ITS | Clinical Summary ---
Author Organization [employer] Address [address] [facility] 7t [place] [address] Care Team Providers Care [employer] Teacher Name Role Phone Pat Juan VISUAL SUPERVISOR Primary Care Provider [phone] Allergies Active Allergy Reactions Criticality Noted Date Comments Morphine Rash Low 03/24/2011 Other reaction(s): Rash Medications * This document contains information received from the source organization and may not represent a complete record from that organization. glucose blood (Chamson GroupTouch Ultra) test strip USE 1 STRIP by [...] 1 Active Blood Glucose Monitoring Suppl (FreeStyle [place] Lite) w/Device kitIndications:Pr ediabetes,Hypogly cemia Use to [...] complication, without long-term current use of insulin ([facility]) USE TO TEST BLOOD SUGAR ONCE A DAY 1 kit Active glucose blood (OneTouch Ultra) test stripIndications: Type 2 diabetes mellitus without complication, without long-term current use of insulin ([facility]) USE TO TEST BLOOD SUGAR ONCE A DAY 100 each 5 Active OneTouch Delica Lancets 33G miscIndications:T ype 2 diabetes mellitus without complication, without long-term current use of insulin ([facility]) USE TO TEST BLOOD SUGAR ONCE A [...] MG disintegrating tabletIndications :Depression, major, in remission ([facility]) TAKE 1 TABLET BY MOUTH DAILY AT [...] idiopathic constipation 05/05/2023 Overview (05/05/2023): [place] [facility] Linzess Numbness and tingling in left [...] reflux disease 06/02/2013 Overview (10/10/2024): Followed by [facility] Negative EGD 2021 Pantoprazole Pt seen [...] intervention , Patient to reach out to [facility] team as needed, and Patient to [...] oxygen 2L PRN albuterol Followed by pulmonology [facility] Assessment & Plan (02/03/2025 4:57 PM EDT): Now stable continue with same interventions Assessment & Plan (10/30/2024 10:58 AM EST): Mild exacerbation due to Covid infection. Increase Symbicort to Que 6 hours prn SOB/cough. FU with [facility]. Assessment & Plan (08/18/2024 11:43 AM EST): [...] system PLAN: 1. Follow up with [facility]: Recommended for follow-up: 07/31 @ 10am 2. Patient goal is to continue controlling symptoms. 3. Behavioral Recommendations a. F/u in 2 weeks. b. Continue use of coping skills Hyperkalemia 02/20/2018 10/24/2022 Encounters Date Type Department Care Team Description 06/15/2025 Refill [facility] [address] [place] [address] Lori Werner MD Muscle spasm 06/13/2025 Orders Only [facility] External Provider, [facility] 06/05/2025 Refill [facility] [address] [place] [address] DrakePat giraldo FNP Depressive disorder 05/29/2025 Refill [facility] [address] [place] [address] Lori Werner MD 05/18/2025 Refill [facility] [address] [place] [address] Olivia Ramirez MD Muscle spasm 05/13/2025 10:30 AM EDT Clinical Support [facility] [address] [place] [address] Rochelle Horn, JACE Primary hypertension 05/13/2025 Refill [facility] [address] [place] [address] [place] Pat [facility] Depressive disorder 05/13/2025 Telephone [facility] [address] [place] [address] Rochelle Horn, JACE Blood Pressure Check 05/13/2025 Travel 05/11/2025 Refill [facility] [address] [place] [address] Lori Werner MD Prediabetes; Hypoglycemia 04/30/2025 Telephone [facility] [address] [place] [address] Pat Juan FNP oct recall 04/22/2025 11:00 AM EDT Clinical Support [facility] [address] [place], [place] [address] Nadia Michelle, JACE Primary hypertension 04/22/2025 Refill [facility] [address] [place] [address] Rochelle Horn RN Essential hypertension 04/22/2025 Travel 04/16/2025 Refill [facility] [address] [place] [address] Pat Juan FNP Depressive disorder; Muscle spasm 04/08/2025 10:00 AM EDT Clinical Support [facility] [address] [place], [place] [address] Kristy Alcaraz RN Essential hypertension 04/08/2025 Telephone [facility] [address] [place] [address] Pat Juan FNP Med Refill 04/08/2025 Orders Only [facility] [address] [place] [address] Pat Juan FNP 04/08/2025 Refill [facility] [address] [place] [address] Pat Juan FNP Essential hypertension; Depression, major, in remission ([facility]) 04/08/2025 Travel 04/08/2025 Refill [facility] [place] [place] [address] Pat Juan FNP Depression, major, in remission (CMS/HCC) 03/30/2025 Refill [facility] [address] [place] [address] Pat Juan FNP Tingling of both feet 03/25/2025 11:15 AM EDT Office Visit [facility] [address] [place] [address] Pat Juan FNP Essential hypertension (Primary Dx); Muscle spasm; Dietary counseling; Exercise counseling 03/25/2025 Travel 03/24/2025 Telephone [facility] [address] [place] [address] Pat Juan FNP chart prep 03/20/2025 Refill [facility] [address] [place] [address] [facility] Muscle spasm 03/18/2025 Patient Outreach [facility] [address] [place] [address] [facility] Pre-visit Planning (SDOH screening positive and Tobacco screening negative) 03/16/2025 Refill [facility] [address] [facility] [place], [place] [phone] [facility] Depressive disorder from Last 3 Months Immunizations [...] Description 06/29/2025 10:30 AM EDT Office Visit [facility] [address] [place] [address] Pat Juan, VISUAL SUPERVISOR [address] [place] [address] Health Maintenance Due Date Last Done Comments [...] 09/15/2025 09/15/2024, 05/22/2022 Lipid Panel 09/15/2025 09/15/2024, 01/22, 05/22/2022 SDOH Screening 03/18/2026 03/18/2025 Depression Screening [...] Procedure Name Priority Date/Time Associated Diagnosis Comments MR KNEE WO CONTRAST RIGHT Routine 06/15/2025 8:55 AM EDT CANCELLED CHEMISTRY Routine 04/08/2025 1 0:05 AM [...] Recently Relevant to Health Maintenance Results * MR Knee w/o Contrast Right (06/15/2025 8:55 AM EDT) Anatomical Region Laterality Modality Magnetic Resonan ce 06/15/2025 8:55 AM EDT Narrative 06/15/2025 8:56 AM EDT [address] [address] Magnetic Resonance Report Signed Patient: Hedy Davis MR#: [id number] 89 : 1950 Acct:[id number] Age/Sex: 74 / F ADM Date: 06/13/25 Loc: HO.MRI Attending Dr: Terry Hernandes MD Ordering Physician: Terry Hernandes MD Date of Service: 06/13/25 Procedure(s): MR knee RT wo con Accession Number(s): [id number] cc: Terry Hernandes MD; [facility] Reason for Exam: S83.241A - Other tear of medial meniscus, current injury, right knee, in... CLINICAL HISTORY: S83.241A - Other tear of medial meniscus, current injury, right knee, in... MR right knee without gadolinium Comparison: None provided Findings: No acute fracture or pathologic bone lesion. Small simple effusion. There is a small Welsh's cyst. Anterior and posterior cruciate ligaments are intact. Collateral ligaments are intact. No disruption of the patellar retinacula or iliotibial band. Quadriceps, patellar, popliteus, and flexor tendons are intact. There is horizontal tear in the posterior horn of the lateral meniscus. There is increased signal within the posterior horn of the medial meniscus extending to the inferior surface, possible degenerative tear. The menisci are otherwise intact. IMPRESSION: 1. Horizontal posterior horn lateral, and questionable posterior horn medial, meniscal tears with joint effusion. This document has been electronically signed by: Tres Chua MD on 06/15/2025 08:55:08 Dictated By: Tres Chua MD Signed By: <Electronically signed by Tres Chua MD in OV> 06/15/2556 DD/ 4 TD/TT: 06/15/25854 Geography Professor: Procedure Note Donotelliinterpreter, Image - 06/15/[address] [address] Magnetic Resonance Report Signed Patient: Hedy DavisMR#: [id number] [birth year] : 9Acct:[id number] Age/Sex: 74 / FADM Date: 06/13/25 Loc: HO.MRI Attending Dr: Terry Hernandes MD Ordering Physician: Terry Hernandes MD Date of Service: 06/13/25 Procedure(s): MR knee RT wo con Accession Number(s): [id number] cc: Terry Hernandes MD; [facility] Reason for Exam: S83.241A - Other tear of medial meniscus, currentinjury, right knee, in... CLINICAL HISTORY: S83.241A - Other tear of medial meniscus, currentinjury, right knee, in... MR right knee without gadolinium Comparison: None provided Findings: No acute fracture or pathologic bone lesion. Small simple effusion. There is a small Welsh's cyst. Anterior and posterior cruciate ligaments are intact. Collateral ligaments are intact. No disruption of the patellar retinacula or iliotibial band. Quadriceps, patellar, popliteus, and flexor tendons are intact. There is horizontal tear in the posterior horn of the lateral meniscus. There is increased signal within the posterior horn of the medial meniscus extending to the inferior surface, possible degenerative tear. The menisci are otherwise intact. IMPRESSION: 1. Horizontal posterior horn lateral, and questionable posterior horn medial, meniscal tears with joint effusion. This document has been electronically signed by: Tres Chua MD on 06/15/2025 08:55:08 Dictated By: Tres Chua MD Signed By: <Electronically signed by Tres Chua MD in OV> 06/15/25 0856 DD/ 0855 TD/TT: 06/15/2555 Geography Professor: us [facility] External Provider IMG MRI PROCEDURES Edited Result - Final * Cancelled Chemistry (04/08/2025 10:05 AM EDT) Cancelled Chemistry SEE NOTE [facility] Comment:THE FOLLOWING TESTS WERE CANCELLED: BMPREASON: Specimen hemolyzed 04/08/2025 10:0 5 AM EDT 04/08/2025 11:31 AM EDT [facility] VISUAL SUPERVISOR HISTORICAL/NON ORDERABLE LABS Final Result [facility] [address] [place] [address] [phone] * POCT HGB A1C (02/03/2025 2:05 PM EDT) Hemoglobin A1C 5.6 4.0 - 6.0 % Blood 02/03/2025 2:05 PM EDT Lori Santoyo MD POINT OF CARE TEST EN TER/EDIT ORDERABLES Final Result * Albumin, Random Urine W/Creatinine (09/15/2024 9:23 AM EST) Creatinine, Urine 65.58 mg/dL [facility] Microalbumin Urine <5.0 mg/L [facility] Microalbum Creatinine Ratio Ur TNP <30 ug/mg cr [facility] Comment:Unable to calculate albumin/creatinine ratio due to lowmicroalbumin or creatinine result. Urine 09/15/2024 9:23 AM EST 09/15/2024 10:51 AM EST [facility] VISUAL SUPERVISOR LAB URINE ORDERABLES Final Re sult Performing Organization Address City/[facility]/ZIP Co de Phone Number [facility] [address] [place] [address] [phone] * Lipid Panel, Standard (09/15/2024 9:18 AM EST) Triglycerides 114 <150 mg/dL [facility] Comment:Desirable Triglyceri de: less than 150 mg/dLBorderline High Triglyceride 150-199 mg/dLHigh Triglyceride: 200-499 mg/dLVery High Triglyceride: greater than or equal to 5OO mg/dL Cholesterol 168 <200 mg/dL [facility] Comment:Desirable Cholestero l: less than 200 mg/dLBorderline High Cholesterol: 200-239 mg/dLHigh Cholesterol: greater than 239 mg/dL LDL Cholesterol Calculated 81 <100 mg/dL [facility] Comment:Desirable LDL: less than 100 mg/dLNear Optimal/Above Optimal LDL: 110- 129 mg/dLBorderline High LDL: 130-159 mg/dLHigh LDL: 160-189 mg/dLVery High LDL: greater than or equal to 190 mg/dL HDL Cholesterol 65 >40 mg/dL [facility] Comment:Desirable HDL: great er than 40 mg/dL Note: This HDL assay may give artificially low results in patients with liver disease. Blood Venous blood specimen / Unknown 09/15/2024 9:18 AM EST 09/15/2024 10:53 AM EST [facility] LAB BLOOD ORDERABLES Final Re sult Performing Organization Address [facility]/ZIP Co de Phone Number [facility] [address] [place] [address] [phone] * Hepatitis C Antibody with Reflex to HCV, RNA, Quantitative, Real-Time PCR (01/31/2023 4:01 PM EDT) Hepatitis C Antibody NON-REACT HERRERA NON-REACT HERRERA [employer] Index 0.09 <1.00 [employer] Comment: HCV antibody was non-reactive. There is no laboratory evidence of HCV infection. In most cases, no further action is required. However, if recent HCV exposure is suspected, a test for HCV RNA (test code 50962) is suggested. For additional information please refer to http://education.Wellntel/faq/SUU78j2 (This link is being provided for informational/ educational purposes only.) Blood Venous blood specimen / Unknown 01/31/2023 4:01 PM EDT 01/31/2023 4:01 PM EDT [facility] LAB BLOOD ORDERABLES Final Re sult Performing Organization Address City/[facility]/ZIP Co de Phone Number [facility] [address], [place] [address] [facility] [address] [place] [phone] * Hm Colonoscopy (08/24/2022) Colonoscopy Normal Normal Comment:[facility] - negative 08/24/2022 us Historical Provider MD HEALTH MAINTENANCE Final Result from Last 3 Months or Most Recently Relevant to Health Maintenance Insurance [employer] MEDICARE REPLACEMENT [facility] Care Teams Bilingual Elementary [employer] Teacher Relationship Specialty Start Date End Date Pat Juan FNP [address] [place] [address] PCP - General Family Medicine 05/04/22
--- OUTSIDE RECORDS SUMMARY | 2025-06-16 10:15 | XMS_ITS | Encounter Summary ---
Author Organization [employer] Address [address] [facility] 7t [place] [address] Care Team Providers Care Profile Saw Setup Operator Name Role Phone Pat Juan WIND INSTRUMENT REPAIRER Primary Care Provider [phone] Encounter Details Date Type Department Care Team (Late st Contact Info) Description 08/09/2023 Abstract [facility] [address] [place], [place] [phone] Rhina Diez Social History Tobacco Use Types [...] 10:30 AM EDT Office Visit [facility] [address] [place] [address] Pat Juan FNP [address] [place] [address] documented as of this encounter Visit Diagnoses Not on filedocumented in this encounter Additional Health Concerns Assessment Noted Time PHQ-9 Depression Total Score: 0 07/18/20 23 9:27 AM EDT documented as of this encounter Care Teams Profile Saw Setup Operator Relationship Specialty Start Date End Date Pat Juan FNP [address] [place] [phone] PCP - General Family Medicine 05/04/22 documented as of this encounter
--- OUTSIDE RECORDS SUMMARY | 2025-06-16 10:15 | XMS_ITS | Encounter Summary ---
Author Organization [employer] Address [address] [facility] 7t [place] [address] Care Team Providers Care Marketing Writer Name Role Phone Drake Pta SPRAY APPLICATOR Primary Care Provider [phone] Reason for Visit * Reason Comments Med Refill Encounter Details Date Type Department Care Team ([facility] st Contact Info) Description 06/15/2025 Refill [facility] [address] [place], [place] [phone] Lori Werner MD [address] [place], [place] [phone] Muscle spasm Social History Tobacco Use Types [...] EDT Office Visit [facility] [address] [place] [address] DrakePat [facility] [address] [place] [address] documented as of this encounter Visit Diagnoses Diagnosis Muscle spasm Spasm of muscle documented in this encounter Additional Health Concerns Assessment Noted Time PHQ-9 Depression Total Score: 0 03/25/20 25 11:20 AM EDT documented as of this encounter Care Teams Marketing Writer Relationship Specialty Start Date End Date Pat Juan FNP [address] [place] [address] PCP - General Family Medicine 05/04/22 documented as of this encounter
--- OUTSIDE RECORDS SUMMARY | 2025-06-16 10:15 | XMS_ITS | Encounter Summary ---
Author Organization [employer] Address [address] [facility] 7t [place] [address] Care Team Providers Care Technician Terminal And Repeater Name Role Phone [facility] Primary Care Provider Reason for Visit * Reason Comments Med Refill Encounter Details Date Type Department Care Team ([facility] st Contact Info) Description 10/15/2024 Refill [facility] [address] [place], [place] [phone] [facility] [address] [place], [place] [phone] Depressive disorder Social History Tobacco Use Types [...] Description 06/29/2025 10:30 AM EDT Office Visit [facility] [address] [place] [address] DrakePat giraldo FNP [address] [place] [address] documented as of this encounter Visit Diagnoses Diagnosis Depressive disorder Depressive disorder, not elsewhere classified documented in this encounter Additional Health Concerns Assessment Noted Time PHQ-9 Depression Total Score: 0 03/19/20 24 8:51 AM EDT documented as of this encounter Care Teams Technician Terminal And Repeater Relationship Specialty Start Date End Date Pat Juan FNP [address] [place] [address] PCP - General Family Medicine 05/04/22 documented as of this encounter
--- OUTSIDE RECORDS SUMMARY | 2025-06-16 10:15 | XMS_ITS | Encounter Summary ---
Author Organization [employer] Address [address] [facility] 7t [place] [address] Care Team Providers Care Rescue Boat Operator Name Role Phone Pat Juan PASSENGER SERVICE MANAGER Primary Care Provider [phone] Reason for Visit * Reason Comments Med Refill Encounter Details Date Type Department Care Team (Late st Contact Info) Description 10/24/2023 Refill [facility] [address] [place], [place] [phone] Tracee Coulter ANP [address] [place], [place] [phone] Depressive disorder Social History Tobacco Use Types [...] Description 06/29/2025 10:30 AM EDT Office Visit [facility] [address] [place] [address] Pat Juan FNP [address] [place] [address] documented as of this encounter Visit Diagnoses Diagnosis Depressive disorder Depressive disorder, not elsewhere classified documented in this encounter Additional Health Concerns Assessment Noted Time PHQ-9 Depression Total Score: 0 07/18/20 23 9:27 AM EDT documented as of this encounter Care Teams Rescue Boat Operator Relationship Specialty Start Date End Date Pat Juan FNP [address] [place] [address] PCP - General Family Medicine 05/04/22 documented as of this encounter
--- OUTSIDE RECORDS SUMMARY | 2025-06-16 10:15 | XMS_ITS | Encounter Summary ---
Author Organization [employer] Address [address] [facility] 7t [place] [address] Care Team Providers Care Commissioning Engineer Name Role Phone Pat Juan WAITER/WAITRESS [place]FET[place]IA Primary Care Provider [phone] Encounter Details Date Type Department Care Team (Late st Contact Info) Description 06/13/2025 Orders Only [facility] External Provider, [facility] [...] 10:30 AM EDT Office Visit [facility] [address] [place], [place] [phone] [facility] [address] [place], [place] [phone] documented as of this encounter Procedures Procedure Name Priority Date/Time Associated Diagnosis Comments MR KNEE WO CONTRAST RIGHT Routine 06/15/2025 8:55 AM EDT documented in this encounter Results * MR Knee w/o Contrast Right (06/15/2025 8:55 AM EDT) Anatomical Region Laterality Modality Magnetic Resonan ce 06/15/2025 8:55 AM EDT Narrative 06/15/2025 8:56 AM EDT [address] [address] Magnetic Resonance Report Signed Patient: Hedy Davis MR#: [id number] [birth year] : 1950 Acct:[id number] Age/Sex: 74 / F ADM Date: 06/13/25 Loc: HO.MRI Attending Dr: Terry Hernandes MD Ordering Physician: Terry Hernandes MD Date of Service: 06/13/25 Procedure(s): MR knee RT wo con Accession Number(s): [id number] cc: Terry Hernandes MD; [facility] Reason for Exam: S83.241A - Other tear [...] Chua MD in OV> 06/15/25 0856 DD/ TD/TT: 06/15/2555 Senior Medical Writer: Procedure Note Donotuseinterpreter, Image - 06/15/2025 [place] [address] Magnetic Resonance Report Signed Patient: [place] Davis#: [id number] [birth year] : 9Acct:[id number] Age/Sex: 74 / FADM Date: 06/13/25 Loc: HO.MRI Attending Dr: Terry Hernandes MD Ordering Physician: Terry Hernandes MD Date of Service: 06/13/25 Procedure(s): MR knee RT wo con Accession Number(s): [id number] cc: Terry Hernandes MD; [facility] Reason for Exam: S83.241A - Other tear [...] in OV> 06/15/2556 DD/ 4 TD/TT: 06/15/25854 Senior Medical Writer: [facility] External Provider IMG MRI PROCEDURES Edited Result - Final documented in this encounter Visit Diagnoses Not on filedocumented in this encounter Additional Health Concerns Assessment Noted Time PHQ-9 Depression Total Score: 0 03/25/20 25 11:20 AM EDT documented as of this encounter Care Teams Commissioning Engineer Relationship Specialty Start Date End Date Pat Juan FNP [address] [place] [phone] PCP - General Family Medicine 05/04/22 documented as of this encounter
--- OUTSIDE RECORDS SUMMARY | 2025-06-16 10:15 | XMS_ITS | Encounter Summary ---
Author Organization [employer] Address [address] [facility] [address] [place] [address] Care Team Providers Care Mobile Ui Designer Name Role Phone [facility] Primary Care Provider [phone] Reason for Visit * Reason Comments Med Refill Encounter Details Date Type Department Care Team ([facility] Contact Info) Description 11/06/2022 Refill [facility] [address] [place], [place] [phone] [facility] [address] [place], [place] [phone] Depressive disorder Social History Tobacco Use Types [...] Upcoming Encounters Date Type Department Care Team ([facility] Contact Info) Description 06/29/2025 10:30 AM EDT Office Visit [facility] [address] [place], [place] [phone] [facility] [address] [place], [place] [phone] documented as of this encounter Visit Diagnoses Diagnosis Depressive disorder Depressive disorder, not elsewhere classified documented in this encounter Additional Health Concerns Assessment Noted Time PHQ-9 Depression Total Score: 0 10/24/19 23 10:40 AM EST documented as of this encounter Care Teams Mobile Ui Designer Relationship Specialty Start Date End Date Pat Juan FNP [address] [place] [phone] PCP - General Family Medicine 05/04/22 documented as of this encounter
--- OUTSIDE RECORDS SUMMARY | 2025-06-16 10:16 | XMS_ITS | Encounter Summary ---
Author Organization [employer] Address 75 [facility] 7t [place] [address] Care Team Providers Care Airport Operations Specialist Name Role Phone [facility] Primary Care Provider [phone] Reason for Visit * Reason Comments Med Refill Encounter Details Date Type Department Care Team ([facility] st Contact Info) Description 04/14/2024 Refill [facility] MEDICINE 230 [place], [place] [phone] [facility] 230 [place], [place] [phone] Depressive disorder Social History Tobacco Use Types [...] 10:30 AM EDT Office Visit [facility] MEDICINE 230 [place] [address] DrakePat giraldo FNP 230 [place] [address] documented as of this encounter Visit Diagnoses Diagnosis Depressive disorder Depressive disorder, not elsewhere classified documented in this encounter Additional Health Concerns Assessment Noted Time PHQ-9 Depression Total Score: 0 03/19/20 24 8:51 AM EDT documented as of this encounter Care Teams Airport Operations Specialist Relationship Specialty Start Date End Date Pat Juan FNP 230 [place] [address] PCP - General Family Medicine 05/04/22 documented as of this encounter
--- OUTSIDE RECORDS SUMMARY | 2025-06-16 10:16 | XMS_ITS | Encounter Summary ---
Author Organization [employer] Address 75 [facility] 7t [place] [address] Care Team Providers Care Conference Translator Name Role Phone Pat Juan [facility] Primary Care Provider [phone] Encounter Details Date Type Department Care Team (Late st Contact Info) Description 04/17/2024 Orders Only [facility] MEDICINE 230 [place], [place] [phone] Lori Werner MD 230 [place], [place] [phone] Social History Tobacco Use Types Packs/Day Years [...] Description 06/29/2025 10:30 AM EDT Office Visit [facility] MEDICINE 230 [place] [address] Pat Juan FNP 230 [place] [address] documented as of this encounter Visit Diagnoses Not on filedocumented in this encounter Additional Health Concerns Assessment Noted Time PHQ-9 Depression Total Score: 0 03/19/20 24 8:51 AM EDT documented as of this encounter Care Teams Conference Translator Relationship Specialty Start Date End Date Pat Juan FNP 230 [place] [address] PCP - General Family Medicine 05/04/22 documented as of this encounter
--- OUTSIDE RECORDS SUMMARY | 2025-06-16 10:16 | XMS_ITS | Encounter Summary ---
Author Organization [employer] Address 75 [facility] 7t [place] [address] Care Team Providers Care Ribbon Winder Name Role Phone [place] [facility] Primary Care Provider [phone] Reason for Visit * Reason Comments Med Refill Encounter Details Date Type Department Care Team ([facility] st Contact Info) Description 01/02/2024 Refill [facility] MEDICINE 230 [place], [place] [phone] [facility] 230 [place], [place] [phone] Tingling of both feet; Depressive disorder Social [...] Description 06/29/2025 10:30 AM EDT Office Visit [facility] MEDICINE 230 [place], [place] [phone] [place] Pat, [facility] 230 [place] [address] documented as of this encounter Visit Diagnoses Diagnosis Tingling of both feet Depressive disorder Depressive disorder, not elsewhere classified documented in this encounter Additional Health Concerns Assessment Noted Time PHQ-9 Depression Total Score: 0 12/17/19 24 9:18 AM EDT documented as of this encounter Care Teams Ribbon Winder Relationship Specialty Start Date End Date Drake CARLOS Stewart [address] [place] [address] PCP - General Family Medicine 05/04/22 documented as of this encounter
--- OUTSIDE RECORDS SUMMARY | 2025-06-16 10:16 | XMS_ITS | Encounter Summary ---
Author Organization [employer] Address 75 [facility] 7t [place] [address] Care Team Providers Care Ob/Gyn Physician Name Role Phone [facility] Primary Care Provider [phone] Reason for Visit * Reason Onset Date Comments Med Refill 02/29/2024 Encounter Details Date Type Department Care Team ([facility] st Contact Info) Description 02/29/2024 Telephone [facility] MEDICINE 230 [place], [place] [phone] [facility] 230 [place], [place] [phone] Med Refill Social History Tobacco Use Types [...] 10 MG tablet To be sent to: [facility] at [place], [place] - [address] documented in this encounter Plan of Treatment Upcoming Encounters Date Type Department Care Team (Late st Contact Info) Description 06/29/2025 10:30 AM EDT Office Visit [facility] MEDICINE 230 [place] [address] Pat Juan FNP 230 [place] [address] documented as of this encounter Visit Diagnoses Not on filedocumented in this encounter Additional Health Concerns Assessment Noted Time PHQ-9 Depression Total Score: 7 01/04/20 24 8:14 AM EDT documented as of this encounter Care Teams Ob/Gyn Physician Relationship Specialty Start Date End Date Pat Juan FNP 230 [place] [address] PCP - General Family Medicine 05/04/22 documented as of this encounter
--- OUTSIDE RECORDS SUMMARY | 2025-06-16 10:16 | XMS_ITS | Encounter Summary ---
Author Organization [employer] Address 75 [facility] 7t [place] [address] Care Team Providers Care Chief Procurement Officer Name Role Phone [place] [facility] Primary Care Provider [phone] Reason for Visit * Reason Onset Date Comments Med Refill 01/21/2024 Encounter Details Date Type Department Care Team ([facility] st Contact Info) Description 01/21/2024 Telephone [facility] MEDICINE 230 [place], [place] [phone] [facility] 230 [place], [place] [phone] Med Refill Social History Tobacco Use Types [...] 11:57 AM EDT Medication was sent to [facility] on 11/26/23 #30 with 2 refills * Telephone Encounter - Eliana Varela - 01/21/2024 11:01 AM EDT TC from pt requesting medication refill. Medications needing refill : mirtazapine (Remeron SolTab) 45 MG disintegrating tablet To be sent to: [facility] at [place], [place] - [address] documented in this encounter Plan of Treatment Upcoming Encounters Date Type Department Care Team (Late st Contact Info) Description 06/29/2025 10:30 AM EDT Office Visit [facility] MEDICINE 230 [place] [address] Pat Juan FNP 230 [place] [address] documented as of this encounter Visit Diagnoses Not on filedocumented in this encounter Additional Health Concerns Assessment Noted Time PHQ-9 Depression Total Score: 7 01/04/20 24 8:14 AM EDT documented as of this encounter Care Teams Chief Procurement Officer Relationship Specialty Start Date End Date Pat Juan FNP 230 [place] [address] PCP - General Family Medicine 05/04/22 documented as of this encounter
--- OUTSIDE RECORDS SUMMARY | 2025-06-16 10:16 | XMS_ITS | Encounter Summary ---
Author Organization [employer] Address 75 [facility] 7t [place] [address] Care Team Providers Care Reel And Rewinder Operator Name Role Phone [facility] Primary Care Provider [phone] Reason for Visit * Reason Onset Date Comments Med Refill 04/08/2025 Encounter Details Date Type Department Care Team ([facility] st Contact Info) Description 04/08/2025 Telephone [facility] MEDICINE 230 [place], [place] [phone] [facility] 230 [place], [place] [phone] Med Refill Social History Tobacco Use Types [...] MG disintegrating tablet To be sent to: [facility] [place], [place] - [address] documented in this encounter Plan of Treatment Upcoming Encounters Date Type Department Care Team (Late st Contact Info) Description 06/29/2025 10:30 AM EDT Office Visit [facility] MEDICINE 230 [place] [address] DrakePat giraldo FNP 230 [place] [address] documented as of this encounter Visit Diagnoses Not on filedocumented in this encounter Additional Health Concerns Assessment Noted Time PHQ-9 Depression Total Score: 0 03/25/20 25 11:20 AM EDT documented as of this encounter Care Teams Reel And Rewinder Operator Relationship Specialty Start Date End Date Pat Juan FNP [address] [place] [address] PCP - General Family Medicine 05/04/22 documented as of this encounter
--- OUTSIDE RECORDS SUMMARY | 2025-06-16 10:16 | XMS_ITS | Encounter Summary ---
Author Organization [employer] Address 75 [facility] 7t [place] [address] Care Team Providers Care Java Sybase Developer Name Role Phone [place] [facility] Primary Care Provider [phone] Reason for Visit * Reason Comments Med Refill Encounter Details Date Type Department Care Team ([facility] st Contact Info) Description 02/21/2024 Refill [facility] MEDICINE 230 [place], [place] [phone] [facility] 230 [place], [place] [phone] Depressive disorder Social History Tobacco Use Types [...] 10:30 AM EDT Office Visit [facility] MEDICINE 230 [place] [address] Pat Juan FNP 230 [place] [address] documented as of this encounter Visit Diagnoses Diagnosis Depressive disorder Depressive disorder, not elsewhere classified documented in this encounter Additional Health Concerns Assessment Noted Time PHQ-9 Depression Total Score: 7 01/04/20 24 8:14 AM EDT documented as of this encounter Care Teams Java Sybase Developer Relationship Specialty Start Date End Date Pat Juan FNP [address] [place] [address] PCP - General Family Medicine 05/04/22 documented as of this encounter
--- OUTSIDE RECORDS SUMMARY | 2025-06-16 10:16 | XMS_ITS | Clinical Summary ---
Author Organization [facility] Address 175 [place] [address] Phone Care Team Providers Care Polysom Tech Name Role Phone [place] Primary Care Provider [phone] Allergies Active Allergy Reactions Criticality Noted Date [...] Problem Noted Date Diagnosed Date Meningioma, cerebral ([facility] V24, [facility] V28) 07/19/2023 Overview (07/22/2024): Last Assessment [...] to order it for her from the [facility] pharmacy. Immunizations Name Administration Dates [...] topic Insurance [employer] MEDICARE ADVANTAGE Care Teams Polysom Tech Relationship Specialty Start Date End Date De[place] [address] [place] [address] PCP - General Family Medicine 07/28/24
== END 2025-06-16 10:07 | disposition home or self-care (01) ==
LOC: HO.HGI 08:58
PROVIDERS: PCP Registered Nurse; Visit Provider Nurse Practitioner Family
DX: K21.9 Gastro-esophageal reflux disease without esophagitis (principal); K59.04 Chronic idiopathic constipation
CPT/HCPCS: 99213

== ENCOUNTER → 2025-06-16 08:57 | Outpatient (BNVA) | payer MEDICARE, SELFPAY | PROVIDERS: PCP Registered Nurse; Visit Provider Nurse Practitioner Family | DX: K21.9 Gastro-esophageal reflux disease without esophagitis (principal); K59.04 Chronic idiopathic constipation; I10 Essential (primary) hypertension | CPT/HCPCS: 99212 ==

== ENCOUNTER 2025-06-30 08:52 | Outpatient (REF) | payer MEDICARE, SELFPAY ==
--- OUTSIDE RECORDS SUMMARY | 2025-06-29 10:30 | XMS_ITS | Encounter Summary ---
Author Organization [employer] Address 75 [facility] 7t [place] [address] Care Team Providers Care Highway Patrol Commander Name Role Phone [place] [facility] Primary Care Provider [phone] Reason for Visit * Reason Comments Follow-up Encounter Details Date Type Department Care Team ([facility] st Contact Info) Description 06/29/2025 10:30 AM EDT Office Visit [facility] MEDICINE 230 [place], [place] [phone] [place] [facility] 230 [place], [place] [phone] Type 2 diabetes mellitus without complication, without long-term current use of insulin ([facility]); Essential hypertension; Encounter for immunization; Depressive disorder; Depression, major, in remission ([facility]) Social History Tobacco Use Types Packs/Day Years [...] Access Q2 Not on file 03/18/2025 Comments No Sex and Gender Information Value Date Recorded Sex Assigned at Female 07/24/2022 10:16 AM EDT Legal Sex Female 10:16 AM EDT Gender Identity Female 07/24/2022 10:16 AM EDT Sexual Orientation Straight 07/24/2022 10 :16 AM EDT documented as of this encounter Last Filed Vital Signs Vital Sign Reading Time Taken Comments Blood Pressure 136/78 06/29/2025 10:50 AM EDT Pulse 74 06/29/2025 10:50 AM EDT Temperature 36.8 C (98.3 F) 06/29/2025 10:50 AM EDT Respiratory Rate 21 06/29/2025 10:50 AM EDT Oxygen Saturation 96% 06/29/2025 10:50 AM EDT Inhaled Oxygen Concentration - - Weight 65.8 kg (145 lb) 06/29/2025 10:50 AM EDT Height 149.9 cm (4' 11 ) 06/29/2025 10:50 AM EDT Body Mass Index 29.29 06/29/2025 10:50 AM EDT documented in this encounter Plan of Treatment Scheduled Orders Name Type Priority Associated Diagnoses Orde r Schedule Comprehensive Metabolic Panel Lab Routine Type 2 diabetes mellitus without complication, without long-term current use of insulin (HCC) Expected: 06/29/2025 (Approximate), Expires: 06/29/2026 Lipid Panel, Standard Lab Routine Type 2 diabetes mellitus without complication, without long-term current use of insulin (HCC) Expected: 06/29/2025 (Approximate), Expires: 06/29/2026 Albumin, Random Urine W/Creatinine Lab Routine Type 2 diabetes mellitus without complication, without long-term current use of insulin (HCC) Expected: 06/29/2025 (Approximate), Expires: 06/29/2026 CBC auto differential Lab Routine Type 2 diabetes mellitus without complication, without long-term current use of insulin (HCC) Expected: 06/29/2025 (Approximate), Expires: 06/29/2026 documented as of this encounter Procedures Procedure Name Priority Date/Time Associated Diagnosis Comments POCT GLYCATED HEMOGLOBIN, TOTAL Routine 06/29/2025 10:52 AM EDT Type 2 diabetes mellitus without complication, without long-term current use of insulin ([facility]) POCT GLUCOSE Routine 06/29/2025 10:52 AM EDT Type 2 diabetes mellitus without complication, without long-term current use of insulin ([facility]) documented in this encounter Results * POCT Hgb A1c (06/29/2025 10:52 AM EDT) Hemoglobin A1C 5.6 4.0 - 5.7 % QC Media Lot # [id number] Lot# Expiration Date Blood 06/29/2025 10:5 2 AM EDT [facility] POINT OF CARE TEST ENTER/EDIT ORDERABLES Final Result * POCT Glucose (06/29/2025 10:52 AM EDT) Glucose Blood, POC 127 60 - 200 mg/dL QC Media Lot # [id number] Lot# Expiration Date 204, Blood Capillary blood specimen / Unknown 06/29/2025 10:52 AM EDT [facility] POINT OF CARE TEST ENTER/EDIT ORDERABLES Final Result documented in this encounter Visit Diagnoses Diagnosis Type 2 diabetes mellitus without complication, without long-term current use of insulin ([facility]) Essential hypertension Unspecified essential hypertension Encounter for immunization Depressive disorder Depressive disorder, not elsewhere classified Depression, major, in remission ([facility]) documented in this encounter Additional Health Concerns Assessment Noted Time PHQ-9 Depression Total Score: 0 03/25/20 25 11:20 AM EDT documented as of this encounter Care Teams Highway Patrol Commander Relationship Specialty Start Date End Date Pat Juan FNP 230 [place] [address] PCP - General Family Medicine 05/04/22 documented as of this encounter
--- OUTSIDE RECORDS SUMMARY | 2025-06-30 09:40 | XMS_ITS | Encounter Summary ---
Author Organization [employer] Address 75 [facility] 7t [place] [address] Care Team Providers Care Fruit Tester Name Role Phone [place] [facility] Primary Care Provider [phone] Reason for Visit * Reason Comments Med Refill Encounter Details Date Type Department Care Team ([facility] st Contact Info) Description 01/02/2024 Refill [facility] MEDICINE 230 [place], [place] [phone] [facility] 230 [place], [place] [phone] Tingling of both feet; Depressive disorder Social [...] down Not at all 01/04/2024 8:14 AM EDT Joe Castañeda Trouble concentrating on things, such as reading the newspaper or watching television Not at all 01/04/2024 8:14 AM FLORIDALMAT Joe Castañeda Moving or speaking so slowly that other people could have noticed? Or the opposite - being so fidgety or restless that you have been moving around a lot more than usual. Several days 01/04/2024 8:14 AM Joe Rosario Thoughts that you would be better off or hurting yourself in some way Not at all 01/04/2024 8:14 AM EDJoe Fields Patient Health Questionnaire-9 Score 7 01/04/2024 8:14 [...] documented as of this encounter Care Teams Fruit Tester Relationship Specialty Start Date End Date Pat Juan FNP [address] [place] [address] PCP - General Family Medicine 05/04/22 documented as of this encounter
--- OUTSIDE RECORDS SUMMARY | 2025-06-30 09:40 | XMS_ITS | Clinical Summary ---
Author Organization [facility] Address [address] [place] [address] Care Team Providers Care Volunteer Recruiter Name Role Phone Unavailable Primary Care Provider [...] Drug Screen 09/24/2024 Depression Annual Screen 09/24/2024 Smw-SANUH-29 (3 - 2024- season) 2025 021, 12/15/2020 Imm-Influenza (#1) 2025 08/13/2019, 1 10/07/2016, 06/17/2015, Additional history exists Imm-Pneumococcal 50+ Completed 08/07/2017, 09/02/2015, 09/26/2007 Insurance [employer] [facility]
--- OUTSIDE RECORDS SUMMARY | 2025-06-30 09:40 | XMS_ITS | Patient Health Record ---
Author Organization [employer] Address [address] [place] [address] Care Team Providers Care Rubbish Collection Supervisor Name Role Phone Pedro Luis Duvall Unavailable [phone] Reason For Referral No Information Plan Of Treatment No Information
--- OUTSIDE RECORDS SUMMARY | 2025-06-30 09:40 | XMS_ITS | Encounter Summary ---
Author Organization [employer] Address 75 [facility] 7t [place] [address] Care Team Providers Care Hospice Massage Therapist Name Role Phone [place] [facility] Primary Care Provider [phone] Reason for Visit * Reason Comments Med Refill Encounter Details Date Type Department Care Team ([facility] st Contact Info) Description 02/21/2024 Refill [facility] MEDICINE 230 [place], [place] [phone] [facility] 230 [place], [place] [phone] Depressive disorder Social History Tobacco Use Types [...] documented as of this encounter Care Teams Hospice Massage Therapist Relationship Specialty Start Date End Date Pat Juan FNP [address] [place] [address] PCP - General Family Medicine 05/04/22 documented as of this encounter
--- OUTSIDE RECORDS SUMMARY | 2025-06-30 09:40 | XMS_ITS | Encounter Summary ---
Author Organization [employer] Address 75 [facility] 7t [place] [address] Care Team Providers Care Audience Development Manager Name Role Phone [facility] Primary Care Provider [phone] Reason for Visit * Reason Comments Med Refill Encounter Details Date Type Department Care Team ([facility] st Contact Info) Description 10/15/2024 Refill [facility] MEDICINE 230 [place], [place] [phone] [facility] 230 [place], [place] [phone] Depressive disorder Social History Tobacco Use Types [...] documented as of this encounter Care Teams Audience Development Manager Relationship Specialty Start Date End Date Pat Juan FNP [address] [place] [address] PCP - General Family Medicine 05/04/22 documented as of this encounter
--- OUTSIDE RECORDS SUMMARY | 2025-06-30 09:40 | XMS_ITS | Clinical Summary ---
Author Organization [facility] Address 175 [place] [address] Phone Care Team Providers Care Mobile Architect Name Role Phone [facility] Primary Care Provider [phone] Allergies Active Allergy Reactions Criticality Noted Date [...] Problem Noted Date Diagnosed Date Meningioma, cerebral ([facility] V24, [facility] V28) 07/19/2023 Overview (07/22/2024): Last [...] it for her from the [facility] pharmacy. Immunizations Immunization Administration Dates Next Due Influenza trivalent, 0.5mL [...] HISTORICAL LITHOTRIPSY OTHER SURGICAL HISTORY 07/31/2023 PROCEDURE: [place] CRNEC TREPHINE BONE FLAP MENINGIOMA SUPRATENTOR; COMMENT: [...] topic Insurance A[employer] MEDICARE ADVANTAGE Care Teams Mobile Architect Relationship Specialty Start Date End Date [place] [address] [place] [address] PCP - General Family Medicine 07/28/24
--- OUTSIDE RECORDS SUMMARY | 2025-06-30 09:40 | XMS_ITS | Encounter Summary ---
Author Organization [employer] Address 75 [facility] 7t [place] [address] Care Team Providers Care Relief Map Modeler Name Role Phone [place] [facility] Primary Care Provider [phone] Reason for Visit * Reason Onset Date Comments Med Refill 04/08/2025 Encounter Details Date Type Department Care Team ([facility] st Contact Info) Description 04/08/2025 Telephone [facility] MEDICINE 230 [place], [place] [phone] [facility] 230 [place], [place] [phone] Med Refill Social History Tobacco Use Types [...] MG disintegrating tablet To be sent to: [facility] at [place], [place] - [address] [place] [address] documented in this encounter Plan of Treatment Not on file documented as of this encounter Visit Diagnoses Not on filedocumented in this encounter Additional Health Concerns Assessment Noted Time PHQ-9 Depression Total Score: 0 03/25/20 11:20 AM EDT documented as of this encounter Care Teams Relief Map Modeler Relationship Specialty Start Date End Date Pat Juan FNP [address] [place] [address] PCP - General Family Medicine 05/04/22 documented as of this encounter
--- OUTSIDE RECORDS SUMMARY | 2025-06-30 09:40 | XMS_ITS | Encounter Summary ---
Author Organization [employer] Address 75 [facility] 7t [place] [address] Care Team Providers Care Home Teaching Grades 9 Thru 12 Teacher Name Role Phone [place] [facility] Primary Care Provider [phone] Reason for Visit * Reason Comments Med Refill Encounter Details Date Type Department Care Team ([facility] st Contact Info) Description 11/06/2022 Refill [facility] [address] [place], [place] [phone] [place] [facility] 230 [place], [place] [phone] Depressive disorder Social History Tobacco Use Types [...] Time PHQ-9 Depression Total Score: 0 10/24/19 10:40 AM EST documented as of this encounter Care Teams Home Teaching Grades 9 Thru 12 Teacher Relationship Specialty Start Date End Date Pat Juan [facility] 230 [place] [address] PCP - General Family Medicine 05/04/22 documented as of this encounter
--- OUTSIDE RECORDS SUMMARY | 2025-06-30 09:40 | XMS_ITS | Encounter Summary ---
Author Organization [employer] Address 75 [facility] 7t [place] [address] Care Team Providers Care Stablehand Name Role Phone [place] [facility] Primary Care Provider [phone] Encounter Details Date Type Department Care Team (Latest Contact Info) Description 06/29/2025 Travel Social History Tobacco Use Types Packs/Day [...] documented as of this encounter Care Teams Stablehand Relationship Specialty Start Date End Date Pat Juan FNP [address] [place] [address] PCP - General Family Medicine 05/04/22 documented as of this encounter
--- OUTSIDE RECORDS SUMMARY | 2025-06-30 09:40 | XMS_ITS | Encounter Summary ---
Author Organization [employer] Address 75 [facility] 7t [place] [address] Care Team Providers Care Area Operations Director Name Role Phone Pat Juan [place] Primary Care Provider [phone] Encounter Details Date Type Department Care Team (Late st Contact Info) Description 04/17/2024 Orders Only [facility] MEDICINE 230 [place], [place] [phone] Lori Werner MD 230 [place], [place] [phone] Social History Tobacco Use Types Packs/Day Years [...] documented as of this encounter Care Teams Area Operations Director Relationship Specialty Start Date End Date Pat Juan FNP [address] [place] [address] PCP - General Family Medicine 05/04/22 documented as of this encounter
--- OUTSIDE RECORDS SUMMARY | 2025-06-30 09:40 | XMS_ITS | Encounter Summary ---
Author Organization [employer] Address 75 [facility] 7t [place] [address] Care Team Providers Care Medical Equipment Repairer Name Role Phone Pat Juan [address] DEPARTMENT Primary Care Provider [phone] Reason for Visit * Reason Comments Med Refill Encounter Details Date Type Department Care Team (Late st Contact Info) Description 10/24/2023 Refill [facility] MEDICINE 230 [place], [place] [phone] Tracee Coulter ANP 230 [place], [place] [phone] Depressive disorder Social History Tobacco Use Types [...] documented as of this encounter Care Teams Medical Equipment Repairer Relationship Specialty Start Date End Date Pat Juan FNP [address] [place] [address] PCP - General Family Medicine 05/04/22 documented as of this encounter
--- OUTSIDE RECORDS SUMMARY | 2025-06-30 09:40 | XMS_ITS | Encounter Summary ---
Author Organization [employer] Address 75 [facility] 7t [place] [address] Care Team Providers Care Microfilm Equipment Inspector Name Role Phone [facility] [place] [facility] Primary Care Provider [phone] Reason for Visit * Reason Comments Med Refill Encounter Details Date Type Department Care Team ([facility] st Contact Info) Description 04/14/2024 Refill [facility] MEDICINE 230 [place], [place] [phone] [facility] 230 [place], [place] [phone] Depressive disorder Social History Tobacco Use Types [...] documented as of this encounter Care Teams Microfilm Equipment Inspector Relationship Specialty Start Date End Date Pat Juan FNP [address] [place] [address] PCP - General Family Medicine 05/04/22 documented as of this encounter
--- OUTSIDE RECORDS SUMMARY | 2025-06-30 09:40 | XMS_ITS | Encounter Summary ---
Author Organization [employer] Address 75 [facility] 7t [place] [address] Care Team Providers Care Class C Truck Driver Name Role Phone [place] [facility] Primary Care Provider [phone] Reason for Visit * Reason Onset Date Comments Med Refill 02/29/2024 Encounter Details Date Type Department Care Team ([facility] st Contact Info) Description 02/29/2024 Telephone [facility] MEDICINE 230 [place], [place] [phone] [facility] 230 [place], [place] [phone] Med Refill Social History Tobacco Use Types [...] 10 MG tablet To be sent to: [facility] at [place], [place] - [address] [facility] documented in this encounter Plan of Treatment Not on file documented as of this encounter Visit Diagnoses Not on filedocumented in this encounter Additional Health Concerns Assessment Noted Time PHQ-9 Depression Total Score: 7 01/04/20 24 8:14 AM EDT documented as of this encounter Care Teams Class C Truck Driver Relationship Specialty Start Date End Date Pat Juan FNP [address] [place] [address] PCP - General Family Medicine 05/04/22 documented as of this encounter
--- OUTSIDE RECORDS SUMMARY | 2025-06-30 09:40 | XMS_ITS | Encounter Summary ---
Author Organization [employer] Address 75 [facility] 7t [place] [address] Care Team Providers Care Iron Miner Blasting Name Role Phone [place] [facility] Primary Care Provider [phone] Reason for Visit * Reason Onset Date Comments Med Refill 01/21/2024 Encounter Details Date Type Department Care Team ([facility] st Contact Info) Description 01/21/2024 Telephone [facility] MEDICINE 230 [place], [place] [phone] [facility] 230 [place], [place] [phone] Med Refill Social History Tobacco Use Types [...] 11:57 AM EDT Medication was sent to [facility] on 11/26/23 #30 with 2 refills * Telephone Encounter - Eliana Varela - 01/21/2024 11:01 AM EDT TC from pt requesting medication refill. Medications needing refill : mirtazapine (Remeron SolTab) 45 MG disintegrating tablet To be sent to: [facility] at [place], [place] - [address] [place] [address] documented in this encounter Plan of Treatment Not on file documented as of this encounter Visit Diagnoses Not on filedocumented in this encounter Additional Health Concerns Assessment Noted Time PHQ-9 Depression Total Score: 7 01/04/20 24 8:14 AM EDT documented as of this encounter Care Teams Iron Miner Blasting Relationship Specialty Start Date End Date Pat Juan FNP [address] [place] [phone] PCP - General Family Medicine 05/04/22 documented as of this encounter
--- OUTSIDE RECORDS SUMMARY | 2025-06-30 09:40 | XMS_ITS | Encounter Summary ---
Author Organization [employer] Address 75 [facility] 7t [place] [address] Care Team Providers Care Acid Mixer Name Role Phone [facility] Primary Care Provider Reason for Visit * Reason Comments Med Refill Encounter Details Date Type Department Care Team ([facility] st Contact Info) Description 12/06/2023 Refill [facility] MEDICINE 230 [place], [place] [phone] [facility] 230 [place], [place] [phone] Depressive disorder Social History Tobacco Use Types [...] documented as of this encounter Care Teams Acid Mixer Relationship Specialty Start Date End Date Pat Juan FNP [address] [place] [address] PCP - General Family Medicine 05/04/22 documented as of this encounter
--- OUTSIDE RECORDS SUMMARY | 2025-06-30 09:40 | XMS_ITS | Encounter Summary ---
Author Organization [employer] Address 75 [facility] 7t [place] [address] Care Team Providers Care Health Record Technician Name Role Phone Pat Juan ROTARY RIG ENGINE OPERATOR Primary Care Provider [phone] Encounter Details Date Type Department Care Team (Late st Contact Info) Description 08/09/2023 Abstract [facility] MEDICINE 230 [place], [place] [phone] Rhina Diez Social History Tobacco Use Types [...] documented as of this encounter Care Teams Health Record Technician Relationship Specialty Start Date End Date Pat Juan FNP [address] [place] [address] PCP - General Family Medicine 05/04/22 documented as of this encounter
--- OUTSIDE RECORDS SUMMARY | 2025-06-30 09:40 | XMS_ITS | Clinical Summary ---
Author Organization [employer] Address 75 [facility] 7t [place] [address] Care Team Providers Care Supervisor Car Installations Name Role Phone Pat Juan WASHER HAND Primary Care Provider [phone] Allergies Active Allergy Reactions Criticality Noted Date Comments Morphine Rash Low 03/24/2011 Other reaction(s): Rash Medications * This document contains information received from the source organization and may not represent a complete record from that organization. glucose blood (CluepediaTouch Ultra) test strip USE 1 STRIP by [...] 1 Active Blood Glucose Monitoring Suppl (FreeStyle Highland Lite) w/Device kitIndications:Pr ediabetes,Hypogly cemia Use to test blood sugar 1 times daily 1 kit Active Lancets miscIndications:P rediabetes,Hypogl ycemia Use to test blood sugar 1 times daily 100 each 025 Active FREESTYLE LITE test stripIndications: Prediabetes,Hypog lycemia Use to test blood sugar 1 times daily 100 each 12 025 2025 Active Blood Glucose Monitoring Suppl (ONE TOUCH ULTRA 2) w/Device kitIndications:Ty pe 2 diabetes mellitus without complication, without long-term current use of insulin (HCC) USE TO TEST BLOOD SUGAR ONCE A DAY 1 kit Active glucose blood (OneTouch Ultra) test stripIndications: Type 2 diabetes mellitus without complication, without long-term current use of insulin ([facility]) USE TO TEST BLOOD SUGAR ONCE A DAY 100 each 5 Active OneTouch Delica Lancets 33G miscIndications:T ype 2 diabetes mellitus without complication, without long-term current use of insulin (HCC) USE TO TEST BLOOD SUGAR ONCE A [...] day. 90 tablet 3 025 2025 Active cetirizine (ZyrTEC) 10 MG tabletIndications :Seasonal allergies TAKE 1 TABLET BY MOUTH EVERY DAY NEEDED FOR ALLERGIES 90 tablet 1 Active Alcohol Swabs (Easy Touch Alcohol Prep Medium) 70 % padsIndications:P rediabetes,Hypogl ycemia USE TO TEST BLOOD SUGAR 1 TIMES DAILY 100 each 3 Active Multiple Vitamin (Daily-Jacquelyn) tablet TAKE 1 TABLET BY MOUTH EVERY DAY WITH FOOD 90 tablet 2 Active meloxicam (Mobic) 7.5 MG tabletIndications :Muscle spasm TAKE 1 TABLET BY MOUTH EVERY DAY 30 tablet 025 Active Trelegy Ellipta 200-62.5-25 MCG/ACT aerosol powder Active hydroCHLOROthiazi de 12.5 MG tablet Active zolpidem (Ambien) 10 MG tabletIndications :Depressive disorder TAKE 1 TABLET BY MOUTH DAILY AT BEDTIME 28 tablet Active mirtazapine (Remeron Eliana-Tab) 45 MG disintegrating tabletIndications :Depression, major, in remission (CMS/HCC) TAKE 1 TABLET BY MOUTH DAILY AT BEDTIME 30 tablet 3 025 Active mirtazapine (Remeron Eliana-Tab) 45 MG [...] if develop fever or symptoms worsen Meningioma (CMS/HCC) 03/18/2024 Mild anxiety 01/04/2024 Chronic idiopathic constipation 05/05/2023 Overview (05/05/2023): Followed by [facility] Linzess Numbness and tingling in left [...] reflux disease 06/02/2013 Overview (10/10/2024): Followed by [facility] Negative EGD 2021 Pantoprazole Pt seen by GI 06/13/24 for GERD workup. Plan to continue on protonix in the morning and famotidine at bedtime. Next f/u to be scheduled 6 months from then. Osteoporosis 05/21/2013 Overview (12/17/2023): Hx of osteoporosis s/t hyperparathyrodism dx 2019. S/p 3.5 gland parathyroidectomy 02/15/2021 with PTH [...] intervention , Patient to reach out to [facility] team as needed, and Patient [...] oxygen 2L PRN albuterol Followed by pulmonology [facility] Assessment & Plan (02/03/2025 4:57 PM EDT): Now stable continue with same interventions Assessment & Plan (10/30/2024 10:58 AM EST): Mild exacerbation due to Covid infection. Increase Symbicort to Que 6 hours prn SOB/cough. FU with [employer]. Assessment & Plan (08/18/2024 11:43 AM EST): [...] support system PLAN: 1. Follow up with [facility]: Recommended for follow-up: 07/31 @ 10am 2. Patient goal is to continue controlling symptoms. 3. Behavioral Recommendations a. F/u in 2 weeks. b. Continue use of coping skills Hyperkalemia 02/20/2018 10/24/2022 Encounters Date Type Department Care Team Description 06/29/2025 10:30 AM EDT Office Visit [facility] MEDICINE [address] [place] [address] Pat Juan FNP Type 2 diabetes mellitus without complication, without long-term current use of insulin (HCC); Essential hypertension; Encounter for immunization; Depressive disorder; Depression, major, in remission ([facility]/HCC) 06/29/2025 Travel 06/19/2025 Patient Outreach [facility] MEDICINE [address] [place] [address] Pat Juan FNP Pre-visit Planning (SDOH screening completed on 03/18/2025) 06/15/2025 Refill [facility] MEDICINE [address] [place] [address] Lori Werner MD Muscle spasm 06/13/2025 Orders Only [facility] External Provider, [facility] 06/05/2025 Refill [facility] MEDICINE 230 [place] [address] Pat Juan FNP Depressive disorder 05/29/2025 Refill [facility] MEDICINE [address] [place], [place] [address] Lori Werner MD 05/18/2025 Refill [facility] MEDICINE [address] [place], [place] [address] Olivia Ramirez MD Muscle spasm 05/13/2025 10:30 AM EDT Clinical Support [facility] MEDICINE [address] [place], [place] [address] Rochelle Horn, JACE Primary hypertension 05/13/2025 Refill [facility] MEDICINE [address] [place], [place] [address] Pat Juan FNP Depressive disorder 05/13/2025 Telephone [facility] MEDICINE [address] [place], [place] [address] Rochelle Horn, RN Blood Pressure Check 05/13/2025 Travel 05/11/2025 Refill [facility] MEDICINE [address] [place] [address] Lori Werner MD Prediabetes; Hypoglycemia 04/30/2025 Telephone [facility] MEDICINE [address] [place], [place] [address] Pat Juan FNP oct recall 04/22/2025 11:00 AM EDT Clinical Support [facility]INE [address] [place], [place] [address] Nadia Michelle, JACE Primary hypertension 04/22/2025 Refill [facility] MEDICINE [address] [place] [address] Rochelle Horn RN Essential hypertension 04/22/2025 Travel 04/16/2025 Refill [facility] MEDICINE [address] [place], [place] [address] Pta Juan FNP Depressive disorder; Muscle spasm 04/08/2025 10:00 AM EDT Clinical Support [facility] MEDICINE [address] [place], [place] [address] Kristy Alcaraz, JACE Essential hypertension 04/08/2025 Telephone [facility] MED[facility]INE [address] [facility] [place] [place] [address] Pat Juan FNP Med Refill 04/08/2025 Orders Only [facility] MEDICINE [address] [place] [address] Pat Juan, WASHER HAND 04/08/2025 Refill [facility] MEDICINE [address] [facility] [place] [address] [employer]chards[place], [facility] Essential hypertension; Depression, major, in remission ([facility]) 04/08/2025 Travel 04/08/2025 Refill [facility] MEDICINE [address] [facility] [place] [address] Pat Juan [facility] Depression, major, in remission ([facility]) 03/30/2025 Refill [facility] MEDICINE [address] [facility] [place] [address] [employer]chards[employer], [facility] Tingling of both feet from Last 3 Months Immunizations Immunization Administration Dates Next Due Influenza High-dose Quadriva lent Preservative Free 06/08/2023,06/22/2022 Influenza injectable quadriv alent IIV4 with preservative 08/07/2017 Influenza injectable quadriv alent preservative free 06/17/2015,11/23/2014 Influenza, High Dose Seasona l, Preservative Free 06/29/2025,08/18/2024,08/13/2019 Influenza, IIV3, injectable 08/23/2018 Influenza, Split (incl. rodney fied surface antigen) 06/02/2013 Influenza, Unspecified 09/02/2009 Moderna Covid-19 Vaccine [...] Mass Index 29.29 06/29/2025 10:50 AM EDT Plan of Treatment Health Maintenance Due Date Last Done Comments Alcohol/Substance Use Screening 1962 Eye Exam 09/24/2023 09/24/2021 RSV Patients and Patients Aged 60 years or older (1 - 1-dose 75+ series) 2023 Diabetes: Foot Exam 03/19/2025 03/19/2024, 03/19/2024, 03/19/2024, Additional history exists COVID-19 Vaccine ( season) 2025 01/12/2021, 12/15/2020 Diabetes: Urine Protein Screening 09/15/2025 09/15/2024, 05/22/2022 Lipid Panel 09/15/2025 09/15/2024, 01/22, 05/22/2022 Diabetes: Hemoglobin A1C 12/28/2025 025, 02/03/2025, 08/18/2024, Additional history exists SDOH Screening 03/18/2026 03/18/2025 Depression Screening 03/25/2026 03/25/2025, 03/25/20 25 Tobacco Screening 06/29/2026 06/29/2025 DTaP/Tdap/Td Vaccines (3 - Td or Tdap) 04/14/2032 04/14/2022, 04/14/2022, 07/04/2011 Pneumococcal Vaccine: 50+ Years Completed 08/07/2017, 09/02/2015, 09/26/2007 Zoster Vaccines Completed 07/24/2022, 08/0 01/2022, 11/23/2014 Colonoscopy Discontinued 08/24/2022 Colorectal Cancer Screening Discontinued Hepatitis C Screening Completed 01/31/2023 Influenza Vaccine Completed 06/29/2025, , 06/08/2023, Additional history exists CT Colonography [...] without long-term current use of insulin (HCC) POCT GLUCOSE Routine 06/29/2025 10:52 AM EDT Type 2 diabetes mellitus without complication, without long-term current use of insulin (HCC) MR KNEE WO CONTRAST RIGHT Routine 06/15/2025 8:55 AM EDT CANCELLED CHEMISTRY Routine 04/08/2025 1 0:05 AM EDT ALBUMIN, RANDOM URINE W/CREATININE Routine 09/15/2024 9:23 [...] Recently Relevant to Health Maintenance Results * POCT Hgb A1c (06/29/2025 10:52 AM EDT) Hemoglobin A1C 5.6 4.0 - 5.7 % QC Media Lot # [id number] Lot# Expiration Date Blood 06/29/2025 10:5 2 AM EDT [facility] WASHER HAND POINT OF CARE TEST ENTER/EDIT ORDERABLES Final Result * POCT Glucose (06/29/2025 10:52 AM EDT) Glucose Blood, POC 127 60 - 200 mg/dL QC Media Lot # [id number] Lot# Expiration Date Blood Capillary blood specimen / Unknown 06/29/2025 10:52 AM EDT [facility] POINT OF CARE TEST ENTER/EDIT ORDERABLES Final Result * MR Knee w/o Contrast Right (06/15/2025 8:55 AM EDT) Anatomical Region Laterality Modality Magnetic Resonan ce 06/15/2025 8:55 AM EDT Narrative 06/15/2025 8:56 AM EDT [place] [address] Magnetic Resonance Report Signed Patient: Hedy Davis MR#: [id number] [birth year] : 1950 Acct:[id number] Age/Sex: 74 / F ADM Date: 06/13/25 Loc: HO.MRI Attending Dr: Terry Hernandes MD Ordering Physician: Terry Hernandes MD Date of Service: 06/13/25 Procedure(s): MR knee RT wo con Accession Number(s): [id number] cc: Terry Hernandes MD; [facility] Reason for Exam: S83.241A - Other tear [...] signed by Tres Chua MD in OV> 06/15/25855 DD/ 4 TD/TT: 06/15/25854 Bicycle Technician: Procedure Note Donotuseinterpreter, Image - 06/15/2025 [place] [address] Magnetic Resonance Report Signed Patient: Martín Davis#: [id number] [birth year] : 9Acct:[id number] Age/Sex: 74 / FADM Date: 06/13/25 Loc: .MRI Attending Dr: Terry Hernandes MD Ordering Physician: Terry Hernandes MD Date of Service: 06/13/25 Procedure(s): MR knee RT wo con Accession Number(s): [id number] cc: Terry Hernandes MD; [facility] Reason for Exam: S83.241A - Other tear [...] Tres Chua MD in OV> 06/15/2556 DD/ TD/TT: 06/15/25854 Bicycle Technician: [facility] External Provider IMG MRI PROCEDURES Edited Result - Final * Cancelled Chemistry (04/08/2025 10:05 AM EDT) Cancelled Chemistry SEE NOTE [facility] Comment:THE FOLLOWING TESTS WERE CANCELLED: BMPREASON: Specimen hemolyzed 04/08/2025 10:0 5 AM EDT 04/08/2025 11:31 AM EDT [facility] WASHER HAND HISTORICAL/NON ORDERABLE LABS Final Result Performing Organization Address [facility] de Phone Number [facility] [address] [place] [phone] * Albumin, Random Urine W/Creatinine (09/15/2024 9:23 AM EST) Creatinine, Urine 65.58 mg/dL [facility] Microalbumin Urine <5.0 mg/L [facility] Microalbum Creatinine Ratio Ur TNP <30 ug/mg cr [facility] Comment:Unable to calculate albumin/creatinine ratio due to lowmicroalbumin or creatinine result. Urine 09/15/2024 9:23 AM EST 09/15/2024 10:51 AM EST [facility] WASHER HAND LAB URINE ORDERABLES Final Re sult Performing Organization Address [facility] Co de Phone Number [facility] [address] [place] [address] [phone] * Lipid Panel, Standard (09/15/2024 9:18 AM EST) Triglycerides 114 <150 mg/dL [facility] Comment:Desirable Triglyceri de: less than 150 mg/dLBorderline High Triglyceride 150-199 mg/dLHigh Triglyceride: 200-499 mg/dLVery High Triglyceride: greater than or equal to 5OO mg/dL Cholesterol 168 <200 mg/dL [facility] Comment:Desirable Cholestero l: less than 200 mg/dLBorderline High Cholesterol: 200-239 mg/dLHigh Cholesterol: greater than 239 mg/dL LDL Cholesterol Calculated 81 <100 mg/dL [facility] Comment:Desirable LDL: less than 100 mg/dLNear Optimal/Above Optimal LDL: 110- 129 mg/dLBorderline High LDL: 130-159 mg/dLHigh LDL: 160-189 mg/dLVery High LDL: greater than or equal to 190 mg/dL HDL Cholesterol 65 >40 mg/dL [facility] Comment:Desirable HDL: great er than 40 mg/dL Note: This HDL assay may give artificially low results in patients with liver disease. Blood Venous blood specimen / Unknown 09/15/2024 9:18 AM EST 09/15/2024 10:53 AM EST [facility] LAB BLOOD ORDERABLES Final Re sult [facility] [address] [place] [address] [phone] * Hepatitis C Antibody with Reflex to HCV, RNA, Quantitative, Real-Time PCR (01/31/2023 4:01 PM EDT) Hepatitis C Antibody NON-REACT HERRERA NON-REACT HERRERA [employer] [place] [employer] Index 0.09 <1.00 [employer] [place] [employer] Comment: HCV antibody was non-reactive. There is no laboratory evidence of HCV infection. In most cases, no further action is required. However, if recent HCV exposure is suspected, a test for HCV RNA (test code 89510) is suggested. For additional information please refer to http://education.[employer]/faq/HQP91t1 (This link is being provided for informational/ educational purposes only.) Blood Venous blood specimen / Unknown 01/31/2023 4:01 PM EDT 01/31/2023 4:01 PM EDT [facility] WASHER HAND LAB BLOOD ORDERABLES Final Re sult [facility] [address], [place] [address] [employer] [facility] [address] [place] [address] * Hm Colonoscopy (08/24/2022) [facility] Colonoscopy Normal Normal Comment:[facility] - negative 08/24/2022 Historical Provider MD HEALTH MAINTENANCE Final Result from Last 3 Months or Most Recently Relevant to Health Maintenance Insurance [employer] MEDICARE REPLACEMENT HSN PARTIAL Care Teams Supervisor Car Installations Relationship Specialty Start Date End Date Pat Juan FNP [address] [place] [address] PCP - General Family Medicine 05/04/22
--- OUTSIDE RECORDS SUMMARY | 2025-06-30 09:40 | XMS_ITS | Encounter Summary ---
Author Organization [employer] Address 75 [facility] 7t [place] [address] Care Team Providers Care Smoke Room Operator Name Role Phone [facility] Primary Care Provider [phone] Reason for Visit * Reason Comments Med Refill Encounter Details Date Type Department Care Team ([facility] st Contact Info) Description 11/08/2023 Refill [facility] MEDICINE [address] [place], [place] [phone] [facility] [place] [facility] 230 [place], [place] [phone] Tingling of both feet Social History Tobacco [...] documented as of this encounter Care Teams Smoke Room Operator Relationship Specialty Start Date End Date Pat Juan FNP [address] [place] [address] PCP - General Family Medicine 05/04/22 documented as of this encounter
[2025-06-30 11:13] LABS: MANUAL DIFF FLAG NO
[2025-06-30 11:37] LABS: Hematocrit 38.0 % (37.0-47.0); Hemoglobin 12.4 g/dl (12.0-16.0); Imm Gran Abs Auto 0.01 X10*3/uL (0.00-0.03); Imm Gran Pct Auto 0.2 % (0.0-0.4); Lymphocytes Absolute Auto 1.4 X10*3/uL (1.2-4.9); Mean Corpuscular HGB Conc 32.6 g/dl (31.0-35.0); Mean Corpuscular Hemoglobin 31.6 pg (27.0-33.0); Mean Corpuscular Volume 96.9 fL (80.0-98.0); NRBC Abs Auto 0.000 X10*3/uL (0.0-0.012); NRBC Pct Auto 0.0 /100WBC (0.0-0.2); Platelet Count 243 X10*3/uL (160-400); Red Blood Count 3.92 X10*6/uL (4.20-5.50); White Blood Count 5.2 X10*3/uL (4.8-10.8)
[2025-06-30 11:52] LABS: Alanine Aminotransferase 24 U/L (0-31); Albumin Level 4.4 g/dL (3.5-5.0); Alkaline Phosphatase 69 U/L (39-117); Anion Gap 15 (12-20); Aspartate Amino Transferase 28 U/L (5-31); Blood Urea Nitrogen 21 mg/dL (9-16); Calcium 9.2 mg/dL (8.4-10.2); Carbon Dioxide 31 mmol/L (22-29); Chloride 103 mmol/L (96-108); Cholesterol 141 mg/dL (<200); Estimated Glomerular Filt Rate 45; HDL Cholesterol 48 mg/dL (>40); Potassium 4.1 mmol/L (3.3-5.1); Sodium 145 mmol/L (135-145); Total Protein 7.4 g/dL (6.5-8.0); Triglycerides 116 mg/dL (<150)
[2025-06-30 12:21] LABS: Microalbum/Creatinine Ratio Ur 4.2 ug/mg cr (<30)
== END 2025-06-30 08:53 | disposition home or self-care (01) ==
LOC: HO.HHCL 08:52
PROVIDERS: PCP Registered Nurse; Visit Provider Registered Nurse
DX: E11.9 Type 2 diabetes mellitus without complications (principal)
CPT/HCPCS: 36415; 80053; 80061; 82043; 82570; 85025

== ENCOUNTER 2025-07-16 14:29 | Outpatient (AMB) | payer MEDICARE, SELFPAY ==
[2025-07-16 14:44] VITALS: BP 120/58; PULSE 61; BMI 28.7
--- NOTE | 2025-07-16 14:44 | A.OFFVIS_ITS ---
Vital Signs 07/16/25 14:44 07/16/25 15:00 Height 4 ft 11 in Weight 141 lb 15.643 oz BMI 28.7 BP 120/58 L 118/70 Blood Pressure Location Rt brachial Lt brachial Position Sitting Sitting Pulse 61 Pulse Source Pulse Oximeter Intake Visit Reasons: s/p holter HS Reclamation Kettle Tender Required: Yes Reclamation Kettle Tender Services: Reclamation Kettle Tender Present Reclamation Kettle Tender Name: rocco [id number] Waldemar Accompanied by: Grand Child Allergies morphine (MORPHINE) Allergy (Unknown, Verified 07/16/25 14:47) RASH Medication List - Last Reconciled 07/16/25 by Warren Crow NP abaloparatide (Tymlos) 80 mcg (0.04 mL) subcut DAILY acetaminophen 1,000 mg PO Q6H PRN albuterol sulfate 90 mcg/actuation 2 inhalations inhalation Q4-6H PRN albuterol sulfate 2.5 mg (3 mL) inhalation Q4-6H PRN ascorbate calcium (vitamin C) 1 g PO Q6H atorvastatin 40 mg PO DAILY budesonide-formoterol 160-4.5 mcg/actuation inhalation calcium citrate 500 mg (2 x 250 mg calcium) PO BID 90 days cetirizine 10 mg PO DAILY PRN citalopram 20 mg PO DAILY cyanocobalamin (vitamin B-12) 1,000 mcg PO QAM famotidine 20 mg PO BEDTIME sgsanrqqzih-pdwwsetrz-hreuqcir 200-62.5-25 mcg (Trelegy Ellipta) 1 inh inhalation DAILY 30 days hydrochlorothiazide 12.5 mg PO DAILY levothyroxine 75 mcg PO DAILY linaclotide (Linzess) 290 mcg PO QAM mirtazapine 45 mg PO BEDTIME montelukast 10 mg PO DAILY multivitamin 1 tab PO DAILY nebulizers As directed olmesartan 20 mg PO DAILY pantoprazole 40 mg PO QAM pen needle, diabetic USE DIRECTED WITH TYMLOS propranolol 10 mg PO ONCE umeclidinium 62.5 mcg/actuation (Incruse Ellipta) 1 inh inhalation DAILY 30 days zolpidem 10 mg PO BEDTIME PRN HPI Comments Details: This is a 74-year-old female patient coming in for a follow-up visit. A translator and interpreter was used throughout these it. Patient with a history of hypertension who was seen a month ago for ongoing elevated blood pressures and therefore her medications were adjusted with an increase in olmesartan and propranolol from b.i.d. to daily. It seems patient continued to take her propranolol 3 times a day. Patient was noted to have low blood pressures at her primary care visit and therefore her medications were adjusted to olmesartan 20 mg and propranolol once daily. Patient states that since adjusting the medications her blood pressures have been elevated at home ranging between 140s to 160s systolic. Patient is otherwise reporting feeling well overall without any symptoms of exertional chest pain, shortness of breath, palpitations, dizziness, headache, orthopnea, PND, leg edema, presyncope or syncope. Patient is reporting compliance with all her medications. REPLACED BY [facility] Medical History Transaminitis Pulmonary nodules Allergies Kidney stone Back pain Arthritis HLD (hyperlipidemia) Hypothyroidism Diabetes Hypertension Asthma Hyperthyroidism Vitamin D deficiency Primary hyperparathyroidism Postablative hypothyroidism Surgical History History of craniotomy Hx of colonoscopy History of esophagogastroduodenoscopy (EGD) Hx of endoscopy S/P subtotal parathyroidectomy History of carpal tunnel release of both wrists Hx of cataract removal with insertion of prosthetic lens Hx of lithotripsy Hx of cholecystectomy Hx of hysterectomy Family History Father No problems noted. Mother No problems noted. Social History Household Members: Family Are you a primary career manager to a significant other at home: No Do you presently have visiting nurse or other home services: No Alcohol intake: never Patient Tobacco Use Status: Never used Tobacco Review of Systems Const Denies daytime sleepiness, Denies difficulty sleeping, Denies snoring, Denies stops breathing during sleep and Denies weakness Card Denies chest pain, Denies rapid heart rate, Denies irregular heart rhythm, Denies claudication, Denies leg edema, Denies lightheadedness, Denies palpitations, Reports dyspnea, Denies dyspnea on exertion, Denies orthopnea, Denies paroxysmal nocturnal dyspnea and Denies slow heart rate Resp Denies cough, Reports dyspnea, Denies dyspnea on exertion and Denies snoring GI Reports no additional complaints, Denies hematochezia, Denies change in stool character and Denies dyspepsia Musc Denies abnormal gait, Denies muscle weakness and Denies numbness Neuro Denies abnormal gait, Denies numbness and Denies weakness Endo Denies palpitations Physical Exam Vital Signs: Last Vital Signs Pulse 61 07/16/25 14:44 BP 120/58 L 07/16/25 14:44 BMI result Body Mass Index 28.7 Const General: cooperative, healthy appearing, comfortable and no acute distress Orientation/consciousness: patient oriented x3 HEENT Head: Yes normal to inspection Neck Neck: Yes normal visual inspection, Yes trachea midline and Yes supple Chest Chest palpation & inspection: normal inspection of the chest Resp Effort & Inspection: normal respiratory effort Auscultation: clear to auscultation bilaterally, no crackles, no rales, no rhonchi and no wheezes Cardio Jugular venous distension: no JVD Palpation: normal PMI Rate: regular rate Rhythm: regular rhythm Heart sounds: S1 normal heart sound present, S2 normal heart sound present, no click, no gallops, no murmurs and no rubs Peripheral pulses: Peripheral pulses 2+ throughout GI Inspection: Yes normal to inspection Palpation (GI): Soft to palpation Auscultation: normal bowel sounds Skin General skin exam: no rashes or lesions noted Neuro General: patient oriented x3 Extrem General: Yes normal to inspection, No no pedal edema and No calf tenderness Psych Appearance: grossly normal Mental Status: mental status grossly normal Speech and movement: Normal speech and movement present Assessment & Plan Assessment & Plan (1) Hypertension: Code(s): I10 - Essential (primary) hypertension Category: Medical Plan: Echo from 2022 showed a normal LVEF of 66% with moderate septal hypertrophy and mid inferior septal hypokinesis. However, at a repeat echo at [facility] on 01/20/2025, it showed a normal LVEF with no wall motion abnormalities. Patient also had a myocardial perfusion study on 08/12/2024 that showed normal perfusion. Given her elevated blood pressure previously patient was started on olmesartan 40 mg and hydrochlorothiazide however patient never took her hydrochlorothiazide. Patient was previously taking propranolol 3 times a day and was asked to reduce it to daily but instead patient continue taking this. At her recent primary care visit, patient's blood pressures were noted to be lower and therefore her medications were adjusted again. Patient is currently on olmesartan 20 mg and propranolol 10 mg daily. Patient states that she never to her hydrochlorothiazide. Since the adjustment of her medications, patient's blood pressures has been elevated at her log of blood pressures from home. Patient's blood pressure at home was elevated at 160 7/100 however blood pressure today in the office is well-controlled. It was checked twice in the office. Patient to continue with her current regimen of blood pressure medications. Advised monitoring blood pressures at home and keeping a log of it to bring in for a nurse visit for blood pressure check in 1 week. Advised patient to bring her blood pressure machine as well. Patient understanding of the plan. (2) Syncope and collapse: Code(s): R55 - Syncope and collapse Category: Medical Plan: 05/26/2025-patient underwent a Holter study that showed normal sinus rhythm with rare PACs. Benign and denies any recurrence in syncopal episodes. Advised heart healthy diet, regular exercise, low-salt diet, adequate hydration, med compliance, and management of vascular risk factors. Follow up in 1 week with the nurse for a blood pressure check and in 4 months for an office visit. In the interim, patient will call the office with any concerns or change in symptoms. This note was generated using voice recognition software. While every effort has been made to ensure accuracy and proper lapper, there may be occasional errors that could affect the content or meaning of the described symptoms. Medications: Changed From propranolol PCP prescribed for headache prevention 10 mg PO ONCE To propranolol PCP prescribed for headache prevention 10 mg PO DAILY Discontinued hydrochlorothiazide Discontinued Reason: Patient no longer taking 12.5 mg PO DAILY 90 tabs 3RF Coding Level of Care Code Est Pt Level 4 (45012) Complex EM visit Add On G2211 Diagnoses Hypertension I10 Syncope and collapse R55 Time Spent (min) 32 Comment Time spent in reviewing the chart, test results, assessment, counseling and documentation.
[2025-07-16 15:00] VITALS: BP 118/70
--- OUTSIDE RECORDS SUMMARY | 2025-07-16 18:20 | XMS_ITS | Encounter Summary ---
Author Organization [employer] Address [address] [facility] 7t [place] [address] Care Team Providers Care Overhauler Name Role Phone [facility] Primary Care Provider [phone] Reason for Visit * Reason Onset Date Comments Med Refill 01/21/2024 Encounter Details Date Type Department Care Team ([facility] st Contact Info) Description 01/21/2024 Telephone [facility] MEDICINE [address] [place], [place] [phone] [facility] 230 [place], [place] [phone] Med Refill Social History Tobacco Use Types [...] 11:57 AM EDT Medication was sent to [facility] on 11/26/23 #30 with 2 refills * Telephone Encounter - Eliana Varela - 01/21/2024 11:01 AM EDT TC from pt requesting medication refill. Medications needing refill : mirtazapine (Remeron SolTab) 45 MG disintegrating tablet To be sent to: [facility] at [place], [place] - [address] [place] [address] documented in this encounter Plan of Treatment Not on file documented as of this encounter Visit Diagnoses Not on filedocumented in this encounter Additional Health Concerns Assessment Noted Time PHQ-9 Depression Total Score: 7 01/04/20 24 8:14 AM EDT documented as of this encounter Care Teams Overhauler Relationship Specialty Start Date End Date Pat Jaun FNP [address] [place] [id number] PCP - General Family Medicine 05/04/22 documented as of this encounter
--- OUTSIDE RECORDS SUMMARY | 2025-07-16 18:20 | XMS_ITS | Encounter Summary ---
Author Organization [employer] Address [address] [facility] 7t [place] [address] Care Team Providers Care Snipper Name Role Phone [facility] Primary Care Provider [phone] Reason for Visit * Reason Comments Med Refill Encounter Details Date Type Department Care Team ([facility] st Contact Info) Description 07/13/2025 Refill [facility] 230 [place], [place] [phone] [facility] 230 [place], [place] [phone] Chronic nonintractable headache, unspecified headache type; Primary hypertension Social History Tobacco Use Types Packs/Day Years [...] as of this encounter Visit Diagnoses Diagnosis Chronic nonintractable headache, unspecified headache type Primary hypertension Unspecified essential hypertension documented in this encounter Additional Health Concerns Assessment Noted Time PHQ-9 Depression Total Score: 0 03/25/20 25 11:20 AM EDT documented as of this encounter Care Teams Snipper Relationship Specialty Start Date End Date Pat Juan FNP [address] [place] [id number] PCP - General Family Medicine 05/04/22 documented as of this encounter
--- OUTSIDE RECORDS SUMMARY | 2025-07-16 18:20 | XMS_ITS | Encounter Summary ---
Author Organization [employer] Address [address] [facility] 7t [place] [address] Care Team Providers Care Investigation Division Captain Name Role Phone [place] [facility] Primary Care Provider [phone] Reason for Visit * Reason Comments Med Refill Encounter Details Date Type Department Care Team ([facility] st Contact Info) Description 02/21/2024 Refill [facility] MEDICINE 230 [place], [place] [phone] [facility] 230 [place], [place] [phone] Depressive disorder Social History Tobacco Use Types [...] documented as of this encounter Care Teams Investigation Division Captain Relationship Specialty Start Date End Date Pat Juan FNP [address] [place] [phone] PCP - General Family Medicine 05/04/22 documented as of this encounter
--- OUTSIDE RECORDS SUMMARY | 2025-07-16 18:20 | XMS_ITS | Patient Health Record ---
Author Organization [employer] Address [address] [place] [address] Care Team Providers Care Advertisement Compositor Name Role Phone Pedro Luis Duvall Unavailable [phone] Reason For Referral No Information Plan Of Treatment No Information
--- OUTSIDE RECORDS SUMMARY | 2025-07-16 18:20 | XMS_ITS | Encounter Summary ---
Author Organization [employer] Address [address] [facility] 7t [place] [address] Care Team Providers Care Service Inspector Name Role Phone [facility] Primary Care Provider [phone] Reason for Visit * Reason Comments Med Refill Encounter Details Date Type Department Care Team ([facility] st Contact Info) Description 10/15/2024 Refill [facility] MEDICINE 230 [place], [place] [phone] [facility] 230 [place], [place] [phone] Depressive disorder Social History Tobacco Use Types [...] documented as of this encounter Care Teams Service Inspector Relationship Specialty Start Date End Date Pat Juan FNP [address] [place] [phone] PCP - General Family Medicine 05/04/22 documented as of this encounter
--- OUTSIDE RECORDS SUMMARY | 2025-07-16 18:20 | XMS_ITS | Encounter Summary ---
Author Organization [employer] Address [address] [facility] 7t [place] [address] Care Team Providers Care Psychiatric Cns Name Role Phone [place] [facility] Primary Care Provider [phone] Reason for Visit * Reason Comments Med Refill Encounter Details Date Type Department Care Team ([facility] st Contact Info) Description 12/06/2023 Refill [facility] MEDICINE 230 [place], [place] [phone] [facility] 230 [place], [place] [phone] Depressive disorder Social History Tobacco Use Types [...] documented as of this encounter Care Teams Psychiatric Cns Relationship Specialty Start Date End Date Pat Juan FNP [address] [place] [phone] PCP - General Family Medicine 05/04/22 documented as of this encounter
--- OUTSIDE RECORDS SUMMARY | 2025-07-16 18:20 | XMS_ITS | Encounter Summary ---
Author Organization [employer] Address [address] [facility] 7t [place] [address] Care Team Providers Care Structural Steel Engineer Name Role Phone [facility] Primary Care Provider [phone] Reason for Visit * Reason Onset Date Comments Med Refill 02/29/2024 Encounter Details Date Type Department Care Team ([facility] st Contact Info) Description 02/29/2024 Telephone [facility] MEDICINE 230 [place], [place] [phone] [facility] 230 [place], [place] [phone] Med Refill Social History Tobacco Use Types [...] 10 MG tablet To be sent to: [facility] at [place], [place] - [address] [facility] documented in this encounter Plan of Treatment Not on file documented as of this encounter Visit Diagnoses Not on filedocumented in this encounter Additional Health Concerns Assessment Noted Time PHQ-9 Depression Total Score: 7 01/04/20 24 8:14 AM EDT documented as of this encounter Care Teams Structural Steel Engineer Relationship Specialty Start Date End Date Pat Juan FNP [address] [place] [id number] PCP - General Family Medicine 05/04/22 documented as of this encounter
--- OUTSIDE RECORDS SUMMARY | 2025-07-16 18:20 | XMS_ITS | Clinical Summary ---
Author Organization [facility] Address [address] [place] [address] Care Team Providers Care Front Loader Residential Driver Name Role Phone Unavailable Primary Care [...] Drug Screen 09/24/2024 Depression Annual Screen 09/24/2024 [id number] (3 - 2024- season) 2025 021, 12/15/2020 Imm-Influenza (#1) 2025 08/13/2019, 1 10/07/2016, 06/17/2015, Additional history exists Imm-Pneumococcal 50+ Completed 08/07/2017, 09/02/2015, 09/26/2007 Insurance [place] [employer] [employer]
--- OUTSIDE RECORDS SUMMARY | 2025-07-16 18:20 | XMS_ITS | Clinical Summary ---
Author Organization [employer] Address [address] [facility] 7t [place] [address] Care Team Providers Care Online Community Manager Name Role Phone Pat Juan [facility] Primary Care Provider [phone] Allergies Active Allergy Reactions Criticality Noted Date Comments Morphine Rash Low 03/24/2011 Other reaction(s): Rash Medications * This document contains information received from the source organization and may not represent a complete record from that organization. glucose blood (PaymetricTouch Ultra) test strip USE 1 STRIP by [...] HOURS IF NEEDED 8.5 g 024 Active budesonide-formot yusuf (Symbicort) 160-4.5 MCG/ACT inhalerIndication s:Asthma, [...] 1 Active Blood Glucose Monitoring Suppl (FreeStyle [place] Lite) w/Device kitIndications:Pr ediabetes,Hypogly cemia Use to [...] BY MOUTH EVERY DAY 30 tablet 5 025 Active cyclobenzaprine (Flexeril) 5 MG tabletIndications :Muscle spasm Take 1 tablet (5 mg) by mouth if needed at bedtime for muscle spasms. 15 tablet 025 2025 Active cyanocobalamin (Vitamin B-12) 1000 MCG tabletIndications :Tingling of both feet TAKE 1 TABLET BY MOUTH EVERY MORNING 30 tablet 4 Active olmesartan (BENIcar) 20 MG tabletIndications :Essential [...] TIMES DAILY 100 each 3 025 Active Multiple Vitamin (Daily-Jacquelyn) tablet TAKE 1 TABLET BY MOUTH EVERY DAY WITH FOOD 90 tablet 2 Active meloxicam (Mobic) 7.5 MG tabletIndications :Muscle spasm TAKE 1 TABLET BY MOUTH EVERY DAY 30 tablet Active Trelegy Ellipta 200-62.5-25 MCG/ACT aerosol powder Active hydroCHLOROthiazi de 12.5 MG tablet Active zolpidem (Ambien) 10 MG tabletIndications :Depressive disorder TAKE 1 TABLET BY MOUTH DAILY AT BEDTIME 28 tablet Active mirtazapine (Remeron Eliana-Tab) 45 MG disintegrating tabletIndications :Depressive disorder TAKE 1 TABLET BY MOUTH DAILY AT BEDTIME 30 tablet 3 025 Active citalopram (CeleXA) 20 MG tabletIndications :Depressive disorder TAKE 1 TABLET BY MOUTH EVERY DAY 90 tablet 025 Active propranolol (Inderal) 10 MG tabletIndications :Chronic nonintractable headache, unspecified headache type,Primary hypertension Take 1 tablet (10 mg) by mouth Once per day. 90 tablet 1 025 Active propranolol (Inderal) 10 MG tabletIndications :Chronic nonintractable headache, unspecified headache type,Primary hypertension Take 1 tablet (10 mg) by mouth 3 times daily. 90 tablet 11 024 2024 Discontinued citalopram (CeleXA) 20 MG tabletIndications :Depressive disorder TAKE 1 TABLET BY MOUTH EVERY DAY 90 tablet 025 2024 Discontinued mirtazapine (Remeron Eliana-Tab) 45 [...] idiopathic constipation 05/05/2023 Overview (05/05/2023): Followed by [facility] Linzess Numbness and [...] Previously rx'd lisinopril d/c d/t hyperkalemia 2017. 10/18/23-completed echocardiogram for evaluation of palpitations. EF 66%. [...] reflux disease 06/02/2013 Overview (10/10/2024): Followed by [facility] Negative EGD 2021 [...] intervention , Patient to reach out to [facility] team as needed, and Patient to [...] oxygen 2L PRN albuterol Followed by pulmonology [facility] Assessment & Plan (02/03/2025 4:57 PM EDT): Now stable continue with same interventions Assessment & Plan (10/30/2024 10:58 AM EST): Mild exacerbation due to Covid infection. Increase Symbicort to Que 6 hours prn SOB/cough. FU with Research Program Assistant. Assessment & Plan (08/18/2024 11:43 AM EST): [...] support system PLAN: 1. Follow up with [facility]: Recommended for follow-up: 07/31 @ 10am 2. Patient goal is to continue controlling symptoms. 3. Behavioral Recommendations a. F/u in 2 weeks. b. Continue use of coping skills Hyperkalemia 02/20/2018 10/24/2022 Encounters Date Type Department Care Team Description 07/13/2025 Refill [facility] [address] [place] [phone] Pat Juan FNP Chronic nonintractable headache, unspecified headache type; Primary hypertension 07/08/2025 Refill [facility] [address] [place] [address] [phone] Olivia Ramirez MD Depressive disorder 07/03/2025 Results Follow-Up [facility] [address] [place] [phone] Pat Juan FNP POCT Glucose, POCT Hgb A1c, Comprehensive Metabolic Panel, Additional followed-up results: 3 07/01/2025 Telephone [facility] [address] [place] [phone] Pat Juan FNP Care Coordination 06/29/2025 10:30 AM EDT Office Visit [facility] [address] [place] [address] [phone] Pat Juan FNP Essential hypertension (Primary Dx); Type 2 diabetes mellitus without complication, without long-term current use of insulin (HCC); Encounter for immunization; Depressive disorder 06/29/2025 Travel 06/19/2025 Patient Outreach [facility] [address] [facility] [place] [address] Pat Juan FNP Pre-visit Planning ([facility] screening completed on 03/18/2025) 06/15/2025 Refill [facility] [address] [facility] [place] [address] Lori Werner MD Muscle spasm 06/13/2025 Orders Only [facility] External Provider, [facility] 06/05/2025 Refill [facility] [address] [facility] [place] [address] Pat Juan FNP Depressive disorder 05/29/2025 Refill [facility] [address] [facility] [place] [address] Lori Werner MD 05/18/2025 Refill [facility] [address] [facility] [place] [address] Olivia Ramirez MD Muscle spasm 05/13/2025 10:30 AM EDT Clinical Support [facility] [address] [facility] [place] [address] Rochelle Horn RN Primary hypertension 05/13/2025 Refill [facility] [address] [facility] [place] [address] Pat Juan FNP Depressive disorder 05/13/2025 Telephone [facility] [address] [place] [address] Rochelle Horn, JACE Blood Pressure Check 05/13/2025 Travel 05/11/2025 Refill [facility] [address] [facility] [place] [address] Lori Werner MD Prediabetes; Hypoglycemia 04/30/2025 Telephone [facility] [address] [facility] [place] [address] Pat Juan FNP oct recall 04/22/2025 11:00 AM EDT Clinical Support [facility] [address] [facility] [place] [address] Nadia Michelle RN Primary hypertension 04/22/2025 Refill [facility] [address] [place] [address] Rochelle Horn RN Essential hypertension 04/22/2025 Travel 04/16/2025 Refill [facility] [address] [place] [address] Pat Juan, DEPUTY DIRECTOR OF NURSING Depressive disorder; Muscle spasm from Last 3 Months Immunizations Immunization Administration [...] Vaccine ( season) 2025 01/12/2021, 12/15/2020 Diabetes: Hemoglobin A1C 12/28/2025 025, 02/03/2025, 08/18/2024, Additional history exists SDOH Screening 03/18/2026 03/18/2025 Depression Screening 03/25/2026 03/25/2025, 03/25/20 Diabetes: Urine Protein Screening 06/30/2026 06/30/2025, 09/15/2024, 05/22/2022 Lipid Panel 06/30/2026 06/30/2025, 08/25, 01/31/2023, Additional history exists Tobacco Screening 07/01/2026 07/01/2025 DTaP/Tdap/Td Vaccines (3 - Td or Tdap) 04/14/2032 04/14/2022, 04/14/2022, 07/04/2011 Pneumococcal Vaccine: 50+ Years Completed 08/07/2017, 09/02/2015, 09/26/2007 Zoster Vaccines Completed 07/24/2022, 01/2022, 11/23/2014 Colonoscopy Discontinued 08/24/2022 Colorectal Cancer [...] Procedure Name Priority Date/Time Associated Diagnosis Comments CBC WITH AUTO DIFFERENTIAL Routine 06/30/2025 9:12 AM EDT Type 2 diabetes mellitus without complication, without long-term current use of insulin (HCC) ALBUMIN, RANDOM URINE W/CREATININE Routine 06/30/2025 9:12 AM EDT Type 2 diabetes mellitus without complication, without long-term current use of insulin (HCC) LIPID PANEL, STANDARD Routine 06/30/2025 9:12 AM EDT Type 2 diabetes mellitus without complication, without long-term current use of insulin (HCC) COMPREHENSIVE METABOLIC PANEL Routine 06/30/2025 9:12 AM EDT Type 2 diabetes mellitus without complication, without long-term current use of insulin (HCC) POCT GLYCATED HEMOGLOBIN, TOTAL Routine 06/29/2025 10:52 AM EDT Type 2 diabetes mellitus without complication, without long-term current use of insulin (HCC) POCT GLUCOSE Routine 06/29/2025 10:52 AM EDT Type 2 diabetes mellitus without complication, without long-term current use of insulin (HCC) MR KNEE WO CONTRAST RIGHT Routine 06/15/2025 8:55 AM EDT HEPATITIS C AB W/REFL TO HCV RNA, QN, PCR Routine 01/31/2023 4:01 PM EDT Healthcare maintenance HM COLONOSCOPY Routine 08/24/2022 from Last 3 Months or Most Recently Relevant to Health Maintenance Results * Albumin, Random Urine W/Creatinine (06/30/2025 9:12 AM EDT) Creatinine, Urine 187.30 mg/dL [facility] Microalbumin Urine 8.0 mg/L [facility] Microalbum Creatinine Ratio Ur 4.2 <30 ug/mg cr [facility] Comment:Albumin/Creatinine R atio Reference Ranges: Normal: < 30 ug/mg creatinine Microalbuminuria: 30 - 300 ug/mg creatinineClinical Albuminuria: > 300 ug/mg creatinine Urine 06/30/2025 9:12 AM EDT 06/30/2025 11:13 AM EDT [facility] URINE ORDERABLES Final Re sult [facility] [address] [place] [address] [phone] * (ABNORMAL) CBC auto differential (06/30/2025 9:12 AM EDT) White Blood Count 5.2 4.8 - 10.8 X10*3/uL [facility] Red Blood Count 3.92(L) 4.20 - 5.50 X10*6/uL [facility] Hemoglobin 12.4 12.0 - 16.0 g/dl [facility] Hematocrit 38.0 37.0 - 47.0 % [facility] Mean Corpuscular Volume 96.9 80.0 - 98.0 fL [facility] Mean Corpuscular Hemoglobin 31.6 27.0 - 33.0 pg [facility] Mean Corpuscular HGB Conc 32.6 31.0 - 35.0 g/dl [facility] Red Cell Distribution Width 14.5 11.0 - 16.0 % [facility] Platelet Count 243 160 - 400 X10*3/uL [facility] Mean Platelet Volume 10.6 9.4 - 12.3 fL [facility] Neutrophils Percent Auto 61.6 45 - 73 % [facility] Imm Gran Pct Auto 0.2 0.0 - 0.4 % [facility] Lymphocytes Percent Auto 26.0 20 - 40 % [facility] Monocytes Percent Auto 8.3 2 - 11 % [facility] Eosinophils Percent Auto 3.3 0 - 4 % [facility] Basophils Percent Auto 0.6 0 - 2 % [facility] NRBC Pct Auto 0.0 0.0 - 0.2 /100WBC [facility] Neutrophils Absolute Auto 3.2 2.0 - 8.3 x10*3/uL [facility] Imm Gran Abs Auto 0.01 0.00 - 0.03 X10*3/uL [facility] Lymphocytes Absolute Auto 1.4 1.2 - 4.9 X10*3/uL [facility] Monocytes Absolute Auto 0.4 0.1 - 1.2 X10*3/uL [facility] Eosinophils Absolute Auto 0.2 0.0 - 0.4 X10*3/uL [facility] Basophils Absolute Auto 0.0 0.0 - 0.2 X10*3/uL [facility] NRBC Abs Auto 0.000 0.0 - 0.012 X10*3/uL [facility] Blood Venous blood specimen / Unknown 06/30/2025 9:12 AM EDT 06/30/2025 11:09 AM EDT [facility] BLOOD ORDERABLES Final Re sult [facility] [address] [place] [address] [phone] * Lipid Panel, Standard (06/30/2025 9:12 AM EDT) Triglycerides 116 <150 mg/dL [facility] Comment:Desirable Triglyceri de: less than 150 mg/dLBorderline High Triglyceride 150-199 mg/dLHigh Triglyceride: 200-499 mg/dLVery High Triglyceride: greater than or equal to 5OO mg/dL Cholesterol 141 <200 mg/dL [facility] Comment:Desirable Cholestero l: less than 200 mg/dLBorderline High Cholesterol: 200-239 mg/dLHigh Cholesterol: greater than 239 mg/dL LDL Cholesterol Calculated 70 <100 mg/dL [facility] Comment:Desirable LDL: less than 100 mg/dLNear Optimal/Above Optimal LDL: 110- 129 mg/dLBorderline High LDL: 130-159 mg/dLHigh LDL: 160-189 mg/dLVery High LDL: greater than or equal to 190 mg/dL HDL Cholesterol 48 >40 mg/dL [facility] Comment:Desirable HDL: great er than 40 mg/dL Note: This HDL assay may give artificially low results in patients with liver disease. Blood Venous blood specimen / Unknown 06/30/2025 9:12 AM EDT 06/30/2025 11:15 AM EDT [facility] BLOOD ORDERABLES Final Re sult [facility] [address] [place] [phone] * (ABNORMAL) Comprehensive Metabolic Panel (06/30/2025 9:12 AM EDT) Sodium 145 135 - 145 mmol/L [facility] Potassium 4.1 3.3 - 5.1 mmol/L [facility] Chloride 103 96 - 108 mmol/L [facility] Carbon Dioxide 31(H) 22 - 29 mmol/L [facility] Anion Gap 15 12 - 20 [facility] Urea Nitrogen (BUN) 21(H) 9 - 16 mg/dL [facility] Creatinine, Serum 1.18 0.5 - 1.4 mg/dL [facility] Estimated Glomerular Filt Rate 45 [facility] Comment:Chronic Kidney Disea se: Estimated GFR < 60 mL/min/1.30r7Iqcwud Kidney Disease: Estimated GFR < 15 mL/min/1.73m2 Glucose 87 60 - 115 mg/dL [facility] Calcium 9.2 8.4 - 10.2 mg/dL [facility] Bilirubin, Total 0.8 0.0 - 1.0 mg/dL [facility] Aspartate Amino Transferase 28 5 - 31 U/L [facility] Alanine Aminotransferase 24 0 - 31 U/L [facility] Total Protein 7.4 6.5 - 8.0 g/dL [facility] Albumin Level 4.4 3.5 - 5.0 g/dL [facility] Alkaline Phosphatase 69 39 - 117 U/L [facility] Blood Venous blood specimen / Unknown 06/30/2025 9:12 AM EDT 06/30/2025 11:15 AM EDT [facility] BLOOD ORDERABLES Final Re sult [facility] [address] [place] [address] [phone] * POCT Hgb A1c (06/29/2025 10:52 AM EDT) Hemoglobin A1C 5.6 4.0 - 5.7 % QC Media Lot # [id number] Lot# Expiration Date Blood 06/29/2025 10:5 2 AM EDT [facility] POINT OF CARE TEST ENTER/EDIT ORDERABLES Final Result * POCT Glucose (06/29/2025 10:52 AM EDT) Glucose Blood, POC 127 60 - 200 mg/dL QC Media Lot # [id number] Lot# Expiration Date Blood Capillary blood specimen / Unknown 06/29/2025 10:52 AM EDT [facility] POINT OF CARE TEST ENTER/EDIT ORDERABLES Final Result * MR Knee w/o Contrast Right (06/15/2025 8:55 AM EDT) Anatomical Region Laterality Modality Magnetic Resonan ce 06/15/2025 8:55 AM EDT Narrative 06/15/2025 8:56 AM EDT [address] [address] Magnetic Resonance Report Signed Patient: Hedy Davis MR#: [id number] [birth year] : 1950 Acct:[id number] Age/Sex: 74 / F ADM Date: 06/13/25 Loc: HO.MRI Attending Dr: Terry Hernandes MD Ordering Physician: Terry Hernandes MD Date of Service: 06/13/25 Procedure(s): MR knee RT wo con Accession Number(s): [id number] cc: Terry Hernandes MD; [facility] Reason for Exam: S83.241A - Other [...] MD in OV> 06/15/25 0856 DD/ TD/TT: 06/15/25854 Broth Setter: Procedure Note Donotuseinterpreter, Image - 06/15/[address] [address] Magnetic Resonance Report Signed Patient: Hedy DavisMR#: [id number] [birth year] : 9Acct:[id number] Age/Sex: 74 / FADM Date: 06/13/25 Loc: HO.MRI Attending Dr: Terry Hernandes MD Ordering Physician: Terry Hernandes MD Date of Service: 06/13/25 Procedure(s): MR knee RT wo con Accession Number(s): [id number] cc: Terry Hernandes MD; [facility] Reason for Exam: S83.241A - Other [...] MD in OV> 06/15/25 0856 DD/ TD/TT: 06/15/25854 Broth Setter: [facility] External Provider IM MRI PROCEDURES Edited Result - Final * Hepatitis C Antibody with Reflex to HCV, RNA, Quantitative, Real-Time PCR (01/31/2023 4:01 PM EDT) Hepatitis C Antibody NON-REACT HERRERA NON-REACT HERRERA Neronote Index 0.09 <1.00 Neronote Comment: HCV antibody was non-reactive. There is no laboratory evidence of HCV infection. In most cases, no further action is required. However, if recent HCV exposure is suspected, a test for HCV RNA (test code 20863) is suggested. For additional information please refer to http://education.Siriona/faq/OOK33j3 (This link is being provided for informational/ educational purposes only.) Blood Venous blood specimen / Unknown 01/31/2023 4:01 PM EDT 01/31/2023 4:01 PM EDT [facility] DEPUTY DIRECTOR OF NURSING LAB BLOOD ORDERABLES Final Re sult [facility] [address], [place] [address] [facility] [address] [place] [phone] * Hm Colonoscopy (08/24/2022) Colonoscopy Normal Normal Comment:[facility] - negative 08/24/2022 Historical Provider MD HEALTH MAINTENANCE Final Result from Last 3 Months or Most Recently Relevant to Health Maintenance Insurance [employer] MEDICARE REPLACEMENT [facility] Care Teams Online Community Manager Relationship Specialty Start Date End Date Pat Juan FNP [address] [place] [phone] PCP - General Family Medicine 05/04/22
--- OUTSIDE RECORDS SUMMARY | 2025-07-16 18:20 | XMS_ITS | Encounter Summary ---
Author Organization [employer] Address [address] [facility] 7t [place] [address] Care Team Providers Care Computer Terminal Operator Name Role Phone Pat Juan GRAPHIC ART DESIGNER Primary Care Provider [phone] Encounter Details Date Type Department Care Team (Late st Contact Info) Description 08/09/2023 Abstract [facility] [address] [place], [place] [phone] Rhina Diez Social History Tobacco Use Types [...] is your housing situation today? I have jonh see 07/09/[address] you [...] documented as of this encounter Care Teams Computer Terminal Operator Relationship Specialty Start Date End Date Pat Juan FNP [address] [place] [phone] PCP - General Family Medicine 05/04/22 documented as of this encounter
--- OUTSIDE RECORDS SUMMARY | 2025-07-16 18:20 | XMS_ITS | Encounter Summary ---
Author Organization [email or web address] Address [address] [facility] 7t [place] [address] Care Team Providers Care Aircraft Rigging And Controls Mechanic Name Role Phone [facility] Primary Care Provider [phone] Reason for Visit * Reason Comments Med Refill Encounter Details Date Type Department Care Team ([facility] st Contact Info) Description 01/02/[address] [facility] [address] [place], [place] [phone] [facility] [address] [place], [place] [phone] Tingling of both feet; Depressive disorder Social [...] than usual. Several days 01/04/2024 8:14 AM Jeo Rosario Thoughts that you would be better [...] as of this encounter Care Teams Aircraft Rigging And Controls Mechanic Relationship Specialty Start Date End Date Pat Juan FNP [address] [place] [phone] PCP - General Family Medicine 05/04/22 documented as of this encounter
--- OUTSIDE RECORDS SUMMARY | 2025-07-16 18:20 | XMS_ITS | Encounter Summary ---
Author Organization [employer] Address [address] [facility] 7t [place] [address] Care Team Providers Care Mechanical Engineering Officer Name Role Phone [place] [facility] Primary Care Provider Reason for Visit * Reason Comments Med Refill Encounter Details Date Type Department Care Team ([facility] st Contact Info) Description 11/06/2022 Refill [facility] [address] [place], [place] [phone] [place] [facility] [address] [place], [place] [phone] Depressive disorder Social History Tobacco Use Types [...] documented as of this encounter Care Teams Mechanical Engineering Officer Relationship Specialty Start Date End Date Pat Juan [facility] [address] [place] [address] PCP - General Family Medicine 05/04/22 documented as of this encounter
--- OUTSIDE RECORDS SUMMARY | 2025-07-16 18:20 | XMS_ITS | Encounter Summary ---
Author Organization [employer] Address [address] [facility] 7t [place] [address] Care Team Providers Care Plastics Spreading Machine Operator Name Role Phone [place] [facility] Primary Care Provider [phone] Reason for Visit * Reason Onset Date Comments Med Refill 04/08/2025 Encounter Details Date Type Department Care Team ([facility] st Contact Info) Description 04/08/2025 Telephone [facility] [address] [place], [place] [phone] [facility] [address] [place], [place] [phone] Med Refill Social History Tobacco Use Types [...] MG disintegrating tablet To be sent to: [facility] [place], [place] - [address] [place] [address] documented in this encounter Plan of Treatment Not on file documented as of this encounter Visit Diagnoses Not on filedocumented in this encounter Additional Health Concerns Assessment Noted Time PHQ-9 Depression Total Score: 0 03/25/20 11:20 AM EDT documented as of this encounter Care Teams Plastics Spreading Machine Operator Relationship Specialty Start Date End Date Pat Juan FNP [address] [place] [phone] PCP - General Family Medicine 05/04/22 documented as of this encounter
--- OUTSIDE RECORDS SUMMARY | 2025-07-16 18:20 | XMS_ITS | Encounter Summary ---
Author Organization [employer] Address [address] [facility] 7t [place] [address] Care Team Providers Care Inspector Subassembly Name Role Phone [place] Primary Care Provider [phone] Reason for Visit * Reason Comments Med Refill Encounter Details Date Type Department Care Team ([facility] st Contact Info) Description 11/08/2023 Refill [facility] [address] [place], [place] [phone] [facility] [address] [place], [place] [phone] Tingling of both feet Social History Tobacco [...] documented as of this encounter Care Teams Inspector Subassembly Relationship Specialty Start Date End Date Pat Juan FNP [address] [place] [phone] PCP - General Family Medicine 05/04/22 documented as of this encounter
--- OUTSIDE RECORDS SUMMARY | 2025-07-16 18:20 | XMS_ITS | Encounter Summary ---
Author Organization [employer] Address [address] [facility] [address]t [place] [address] Care Team Providers Care Grain Trimmer Name Role Phone Pat Juan INSPECTOR OUTSIDE STEAM DISTRIBUTION Primary Care Provider [phone] Reason for Visit * Reason Comments Med Refill Encounter Details Date Type Department Care Team (Late st Contact Info) Description 10/24/2023 Refill [facility] [address] [place], [place] [phone] Tracee Coulter ANP [address] [place], [place] [phone] Depressive disorder Social History Tobacco Use Types [...] documented as of this encounter Care Teams Grain Trimmer Relationship Specialty Start Date End Date Pat Juan FNP [address] [place] [phone] PCP - General Family Medicine 05/04/22 documented as of this encounter
--- OUTSIDE RECORDS SUMMARY | 2025-07-16 18:21 | XMS_ITS | Encounter Summary ---
Author Organization [employer] Address 75 [facility] 7t [place] [address] Care Team Providers Care Federal Appellate Clerk Name Role Phone [facility] Primary Care Provider [phone] Reason for Visit * Reason Comments Med Refill Encounter Details Date Type Department Care Team ([facility] st Contact Info) Description 04/14/2024 Refill [facility] MED[facility]INE 230 [place], [place] [phone] [facility] 230 [place], [place] [phone] Depressive disorder Social History Tobacco Use Types [...] documented as of this encounter Care Teams Federal Appellate Clerk Relationship Specialty Start Date End Date Pat Juan FNP [address] [place] [address] PCP - General Family Medicine 05/04/22 documented as of this encounter
--- OUTSIDE RECORDS SUMMARY | 2025-07-16 18:21 | XMS_ITS | Clinical Summary ---
Author Organization 175 [facility] Address 175 [place] [address] Phone Care Team Providers Care Account Services Associate Name Role Phone Mcdermitt Bastrop Primary Care Provider [phone] Allergies Active Allergy Reactions Criticality Noted Date [...] Problem Noted Date Diagnosed Date Meningioma, cerebral ([facility] V24, [facility] V28) 07/19/2023 Overview (07/22/2024): Last [...] it for her from the [facility] pharmacy. Immunizations Immunization Administration Dates Next Due [...] topic Insurance [employer] MED[employer]ARE ADVANTAGE Care Teams Account Services Associate Relationship Specialty Start Date End Date Mcdermitt Bastrop [address] [place] [address] PCP - General Family Medicine 07/28/24
--- OUTSIDE RECORDS SUMMARY | 2025-07-16 18:21 | XMS_ITS | Encounter Summary ---
Author Organization [employer] Address 75 [facility] 7t [place] [address] Care Team Providers Care Form Setter Name Role Phone Pat Juan [employer] Primary Care Provider [phone] Encounter Details Date Type Department Care Team (Late st Contact Info) Description 04/17/2024 Orders Only [facility] MEDICINE 230 [place], [place] [phone] Lori Werner MD 230 [place], [place] [phone] Social History Tobacco Use Types Packs/Day Years [...] documented as of this encounter Care Teams Form Setter Relationship Specialty Start Date End Date Pat Juan FNP [address] [place] [address] PCP - General Family Medicine 05/04/22 documented as of this encounter
== END 2025-07-16 15:14 | disposition home or self-care (01) ==
LOC: HO.HCS 14:30
PROVIDERS: PCP Registered Nurse
DX: I10 Essential (primary) hypertension (principal); R55 Syncope and collapse
CPT/HCPCS: 99214; G2211

== ENCOUNTER → 2025-07-16 14:29 | Outpatient (BNVA) | payer MEDICARE, SELFPAY | PROVIDERS: PCP Registered Nurse | DX: I10 Essential (primary) hypertension (principal); R55 Syncope and collapse | CPT/HCPCS: 99212 ==

== ENCOUNTER 2025-07-29 08:58 | Outpatient (AMB) | payer MEDICARE, SELFPAY ==
--- NOTE | 2025-07-29 09:01 | MHC.OFFVIS ---
Vital Signs 07/29/25 09:04 Height 4 ft 11 in Weight 141 lb BMI 28.5 Intake Visit Reasons: OV-Right knee MRI review, 06/15/25 Intake Note: Hedy is a 74 year old female who presents with complaints of right knee pain. She describes her pain as sharp in nature. She has had both cortisone injections and viscosupplementation injections which gave her fairly good relief. She wishes to hold off on surgery if at all possible. She has failed the last 3 months of conservative treatment. She has tried Tylenol, anti-inflammatory medicines, a home exercise program and physical therapy exercises which gave her minimal relief. Tax Professional Services: Tax Professional Present ([id number]) Allergies morphine (MORPHINE) Allergy (Unknown, Verified 07/29/25 09:03) RASH Medication List - Last Reconciled 07/29/25 by Terry Hernandes MD abaloparatide (Tymlos) 80 mcg (0.04 mL) subcut DAILY acetaminophen 1,000 mg PO Q6H PRN albuterol sulfate 90 mcg/actuation 2 inhalations inhalation Q4-6H PRN albuterol sulfate 2.5 mg (3 mL) inhalation Q4-6H PRN ascorbate calcium (vitamin C) 1 g PO Q6H atorvastatin 40 mg PO DAILY budesonide-formoterol 160-4.5 mcg/actuation inhalation calcium citrate 500 mg (2 x 250 mg calcium) PO BID 90 days cetirizine 10 mg PO DAILY PRN citalopram 20 mg PO DAILY cyanocobalamin (vitamin B-12) 1,000 mcg PO QAM famotidine 20 mg PO BEDTIME gpmepsczbif-uqszzpmcq-ywxfxuwc 200-62.5-25 mcg (Trelegy Ellipta) 1 inh inhalation DAILY 30 days levothyroxine 75 mcg PO DAILY linaclotide (Linzess) 290 mcg PO QAM mirtazapine 45 mg PO BEDTIME montelukast 10 mg PO DAILY multivitamin 1 tab PO DAILY nebulizers As directed olmesartan 40 mg PO DAILY pantoprazole 40 mg PO QAM pen needle, diabetic USE DIRECTED WITH TYMLOS propranolol 10 mg PO DAILY umeclidinium 62.5 mcg/actuation (Incruse Ellipta) 1 inh inhalation DAILY 30 days zolpidem 10 mg PO BEDTIME PRN [facility] Medical History Transaminitis Pulmonary nodules Allergies Kidney stone Back pain Arthritis HLD (hyperlipidemia) Hypothyroidism Diabetes Hypertension Asthma Hyperthyroidism Vitamin D deficiency Primary hyperparathyroidism Postablative hypothyroidism Surgical History History of craniotomy Hx of colonoscopy History of esophagogastroduodenoscopy (EGD) Hx of endoscopy S/P subtotal parathyroidectomy History of carpal tunnel release of both wrists Hx of cataract removal with insertion of prosthetic lens Hx of lithotripsy Hx of cholecystectomy Hx of hysterectomy Family History Father No problems noted. Mother No problems noted. Social History Household Members: Family Are you a primary neonatal intensive care nurse to a significant other at home: No Do you presently have visiting nurse or other home services: No Alcohol intake: never Patient Tobacco Use Status: Never used Tobacco Physical Exam Vital Signs: BMI result Body Mass Index 28.5 Const Other: Well-nourished well-developed very friendly female awake alert and oriented x3 in no acute distress Extrem Other: Right knee examination shows a minimal effusion, mild crepitus with range of motion, no instability Office Procedures AMB Joint Injection/Aspiration Joint Injection/Aspiration Primary Site: right knee Prep: site was prepped using aseptic technique Injected: 40 mg of, DepoMedrol, with 4 mL of and 1% plain lidocaine Procedure: The patient tolerated the procedure well Coding 70364 - Large joint Procedure code (CPT) selection complete Results Reviewed Results Reviewed: MRI of the patient's right knee shows mild diffuse degenerative changes as well as small tears of the medial and lateral menisci, no acute bony abnormalities Assessment & Plan Assessment & Plan (1) Osteoarthritis of right knee: Code(s): M17.11 - Unilateral primary osteoarthritis, right knee Category: Medical Plan Ms. Davis presents with right knee pain due to early degenerative joint disease as well as small tears of her medial and lateral menisci. The risks and benefits of a right knee cortisone injection were discussed at length with the patient. The patient wished to proceed. She tolerated the injection well. She will continue with her activity modifications. If she does not get lasting relief from the cortisone injection therapy I will see if her insurance company will cover another Durolane viscosupplementation injections. I will see her back once the injection is approved. Feel free to call me at any time should questions regarding her orthopedic management arise. I spent 20 minutes in reviewing the patient's records and imaging studies, seeing the patient and documenting in the medical record. Orders: Orders AMB Joint Injection/Aspiration Today M17.11 - Unilateral primary osteoarthritis, right knee Coding Level of Care Code Est Pt Level 3 (16900) Complex EM visit Add On G2211 Diagnoses Osteoarthritis of right knee M17.11 CPT Codes Coding - 05726 Large joint: 64534 - Large joint ([id number])
[2025-07-29 09:04] VITALS: BMI 28.5
--- OUTSIDE RECORDS SUMMARY | 2025-07-29 09:32 | XMS_ITS | Encounter Summary ---
Author Organization [employer] Address 75 [facility] 7t [place] [address] Care Team Providers Care Brush And Broom Clipper Name Role Phone [facility] Primary Care Provider Reason for Visit * Reason Comments Med Refill Encounter Details Date Type Department Care Team ([facility] st Contact Info) Description 10/15/2024 Refill [facility] MEDICINE 230 [place], [place] [phone] [facility] 230 [place], [place] [phone] Depressive disorder Social History Tobacco Use Types [...] documented as of this encounter Care Teams Brush And Broom Clipper Relationship Specialty Start Date End Date Pat Juan FNP [address] [place] [address] PCP - General Family Medicine 05/04/22 documented as of this encounter
--- OUTSIDE RECORDS SUMMARY | 2025-07-29 09:32 | XMS_ITS | Encounter Summary ---
Author Organization [employer] Address [address] [facility] 7t [place] [address] Care Team Providers Care Vehicle Washer Name Role Phone [place] [facility] Primary Care Provider [phone] Reason for Visit * Reason Comments Med Refill Encounter Details Date Type Department Care Team ([facility] st Contact Info) Description 12/06/2023 Refill [facility] MEDICINE 230 [place], [place] [phone] [facility] 230 [place], [place] [phone] Depressive disorder Social History Tobacco Use Types [...] as of this encounter Care Teams Vehicle Washer Relationship Specialty Start Date End Date Pat Juan FNP [address] [place] [address] PCP - General Family Medicine 05/04/22 documented as of this encounter
--- OUTSIDE RECORDS SUMMARY | 2025-07-29 09:32 | XMS_ITS | Clinical Summary ---
Author Organization 175 [facility] Address [address] [place] [address] Phone Care Team Providers Care Clerical Receptionist Name Role Phone [facility] Primary Care Provider [phone] Allergies Active Allergy Reactions Criticality Noted Date [...] Problem Noted Date Diagnosed Date Meningioma, cerebral ([facility] V24, [facility] V28) 07/19/2023 Overview (07/22/2024): Last Assessment & [...] the extremities, patient is ambulating independently. Ms. Romero is doing well postop, wound is healing [...] & Plan (08/01/2024 4:35 PM EST): Ms. Romero is doing quite well with no sequela from the surgery. MRI shows no residual or recurrent meningioma and we will continue to follow with surveillance scans every year for the first 5 years then we can reassess the need. She has history of chronic headaches which were treated with Fioricet in [place] but she has been unable to obtain it here. I will try again to order it for her from the [facility] pharmacy. Encounters Date Type Department Care Team Description 07/21/2025 1:42 PM EDT - 07/21/2025 11:59 PM EDT Hospital Encounter [facility] MRI [address] [place] [address] Meningioma, cerebral ([facility] V24, [facility] V28) Discharge Disposition: Home or Self Care from Last 3 Months Immunizations Immunization Administration [...] HISTORICAL LITHOTRIPSY OTHER SURGICAL HISTORY 07/31/2023 PROCEDURE: [place] [facility] TREPHINE BONE FLAP MENINGIOMA SUPRATENTOR; COMMENT: [...] Diabetes: Annual Urine Albumin-Creatinine Ratio (uACR) 07/28/2024 Depression Screening 09/24/2024 COVID-19 Vaccine ( season) 2025 01/12/2021, 12/15/2020 Diabetes: Blood Sugar Control Test (HGBA1C) 12/28/2025 06/29/2025, 12/17/2023 Diabetes: Annual GFR (Glomerular Filtration Rate) 06/30/2026 06/30/2025, 04/29/2024 Hypertension/CHF/CAD Annual BMP Blood Test 06/30/2026 06/30/2025, 04/29/2024 Cholesterol Screening (Lipid Panel) 06/30/2030 06/30/2025, 01/31/2023 DTaP,Tdap,and Td Vaccines (3 - Td or Tdap) 04/14/2032 04/14/2022, 07/04/2011 Pneumococcal Vaccine: 50+ Years Completed 08/07/2017, 09/02/2015, 09/26/2007 Zoster Vaccines Completed 07/24/2022, 0801/2022, 11/23/2014 Hepatitis C Screening Completed 01/31/2023 Influenza Vaccine Completed 06/29/2025, , 06/08/2023, Additional history exists HIB Vaccines Aged Out No longer eligi [...] on patient's age to complete this topic Procedures Procedure Name Priority Date/Time Associated Diagnosis Comments MR BRAIN WO AND W CONTRAST Routine 07/21/2025 2:41 PM EDT Meningioma, cerebral ([facility] V24, [facility] V28) from Last 3 Months Results * MR Brain wo and w Contrast (07/21/2025 2:41 PM EDT) Anatomical Region Laterality Modality Head and Neck Magnetic Resonan ce 07/24/2025 12:1 0 PM EDT Impressions 07/24/2025 12:14 PM EDT 1. Postcraniotomy changes at the right anterior vertex with minimal thickening and enhancement of the underlying dura. No evidence of a residual or recurrent meningioma. 2. Small partially empty sella. This is a relatively common finding which can be seen in asymptomatic patients, but has been associated with pseudotumor cerebri and requires correlation with the patient's clinical presentation. -------- FINAL REPORT -------- Dictated By: Pipo Lu Dictated Date: 07/24/2025 12:10 ET Assigned Physician: Pipo Lu Reviewed and Electronically Signed By: Pipo Lu Signed Date: 07/24/2025 12:14 ET Workstation ID: [id number] Transcribed By: Self Edit Transcribed Date: 07/24/2025 12:10 ET Narrative 07/24/2025 12:14 PM EDT PROCEDURE: Contrast-enhanced MRI of the brain. HISTORY: meningioma. TECHNIQUE: Multiplanar multisequence MRI of the brain with and without intravenous contrast. IV CONTRAST DOSE: 15 mL Dotarem from a 15 mL vial with 0 mL discarded. COMPARISON: 07/28/2024. FINDINGS: BRAIN: There is very mild dural thickening and enhancement to the right vertex underlying a craniotomy defect. No diffusion abnormality. No mass or extra-axial fluid collection. No hydrocephalus. The major intracranial flow voids are preserved. Age commensurate ventricles and sulci. Small partially empty sella. Stable scattered T2 hyperintensities in the supratentorial white matter. These are nonspecific but likely sequela of mild chronic microvascular ischemic disease in a patient of this age. ORBITS: Lens implants. SINUSES/MASTOIDS: Minimal mucosal thickening in the inferior maxillary antra and throughout the ethmoid air cells. CALVARIUM: Postcraniotomy changes along the right anterior frontal vertex. OTHER: The visualized skull base soft tissues are normal. Mild degenerative changes of the visible spine. Procedure Note Pipo Lu MD - 07/24/2025 PROCEDURE: Contrast-enhanced MRI of the brain. HISTORY: meningioma. TECHNIQUE: Multiplanar multisequence MRI of the brain with and withoutintravenous contrast. IV CONTRAST DOSE: 15 mL Dotarem from a 15 mL vial with 0 mL discarded. COMPARISON: 07/28/2024. FINDINGS: BRAIN: There is very mild dural thickening and enhancement to the rightvertex underlying a craniotomy defect. No diffusion abnormality. No mass or extra-axial fluid collection. Nohydrocephalus. The major intracranial flow voids are preserved. Agecommensurate ventricles and sulci. Small partially empty sella. Stablescattered T2 hyperintensities in the supratentorial white matter. Theseare nonspecific but likely sequela of mild chronic microvascular ischemicdisease in a patient of this age. ORBITS: Lens implants. SINUSES/MASTOIDS: Minimal mucosal thickening in the inferior maxillaryantra and throughout the ethmoid air cells. CALVARIUM: Postcraniotomy changes along the right anterior frontalvertex. OTHER: The visualized skull base soft tissues are normal. Milddegenerative changes of the visible spine. IMPRESSION: 1. Postcraniotomy changes at the right anterior vertex with minimalthickening and enhancement of the underlying dura. No evidence of aresidual or recurrent meningioma. 2. Small partially empty sella. This is a relatively common findingwhich can be seen in asymptomatic patients, but has been associated withpseudotumor cerebri and requires correlation with the patient's clinicalpresentation. -------- FINAL REPORT -------- Dictated By: Pipo Lu Dictated Date: 07/24/2025 12:10 ET Assigned Physician: Pipo Lu Reviewed and Electronically Signed By: Pipo Lu Signed Date: 07/24/2025 12:14 ET Workstation ID: [id number] Transcribed By: Self Edit Transcribed Date: 07/24/2025 12:10 ET us Saundra Ríos MD IMG MRI PROCEDURES Final Result from Last 3 Months Insurance [employer] MEDICARE ADVANTAGE Care Teams Clerical Receptionist Relationship Specialty Start Date End Date [facility] [address] [place] [phone] PCP - General Family Medicine 07/28/24
--- OUTSIDE RECORDS SUMMARY | 2025-07-29 09:32 | XMS_ITS | Encounter Summary ---
Author Organization [employer] Address 75 [facility] 7t [place] [address] Care Team Providers Care Swat Team Member Name Role Phone [place] [facility] Primary Care Provider [phone] Reason for Visit * Reason Comments Med Refill Encounter Details Date Type Department Care Team ([facility] st Contact Info) Description 11/08/[address] [facility] MEDICINE 230 [place], [place] [phone] [facility] 230 [place], [place] [phone] Tingling of both feet Social History Tobacco [...] documented as of this encounter Care Teams Swat Team Member Relationship Specialty Start Date End Date Pat Juan FNP [address] [place] [address] PCP - General Family Medicine 05/04/22 documented as of this encounter
--- OUTSIDE RECORDS SUMMARY | 2025-07-29 09:32 | XMS_ITS | Encounter Summary ---
Author Organization [employer] Address 75 [facility] 7t [place] [address] Care Team Providers Care Artificial Flowers Dyer Name Role Phone Pat Juan COUNTER CASER Primary Care Provider Reason for Visit * Reason Comments Med Refill Encounter Details Date Type Department Care Team (Late st Contact Info) Description 10/24/[address] [facility] MEDICINE 230 [place], [place] [phone] Tracee Coulter ANP 230 [place], [place] [phone] Depressive disorder Social History Tobacco Use Types [...] as of this encounter Care Teams Artificial Flowers Dyer Relationship Specialty Start Date End Date Pat Juan FNP [address] [place] [address] PCP - General Family Medicine 05/04/22 documented as of this encounter
--- OUTSIDE RECORDS SUMMARY | 2025-07-29 09:32 | XMS_ITS | Patient Health Record ---
Author Organization [employer] Address [address] [place] [address] Care Team Providers Care Cigarette Roller Name Role Phone Pedro Luis Duvall Unavailable [phone] Reason For Referral No Information Plan Of Treatment No Information
--- OUTSIDE RECORDS SUMMARY | 2025-07-29 09:32 | XMS_ITS | Encounter Summary ---
Author Organization [employer] Address 75 [facility] 7t [place] [address] Care Team Providers Care Game Moderator Name Role Phone [place] [facility] Primary Care Provider [phone] Reason for Visit * Reason Comments Med Refill Encounter Details Date Type Department Care Team ([facility] st Contact Info) Description 11/06/2022 Refill [facility] [address] [place], [place] [phone] [place] [facility] 230 [place], [place] [phone] Depressive disorder Social History Tobacco Use Types [...] documented as of this encounter Care Teams Game Moderator Relationship Specialty Start Date End Date Pat Juan [facility] 230 [place] [address] PCP - General Family Medicine 05/04/22 documented as of this encounter
--- OUTSIDE RECORDS SUMMARY | 2025-07-29 09:32 | XMS_ITS | Clinical Summary ---
Author Organization [employer] Address [address] [facility] 7t [place] [address] Care Team Providers Care Director Sales Training Name Role Phone Pat Juan [facility] Primary Care Provider [phone] Allergies Active Allergy Reactions Criticality Noted Date Comments Morphine Rash Low 03/24/2011 Other reaction(s): Rash Medications * This document contains information received from the source organization and may not represent a complete record from that organization. glucose blood (AdeptenceTouch Ultra) test strip USE 1 STRIP by [...] 1 Active Blood Glucose Monitoring Suppl (FreeStyle [place] Lite) w/Device kitIndications:Pr ediabetes,Hypogly cemia Use to [...] A DAY 100 each 5 025 Active cyclobenzaprine (Flexeril) 5 MG [...] WITH FOOD 90 tablet 2 025 Active meloxicam (Mobic) 7.5 MG tabletIndications :Muscle spasm TAKE 1 TABLET BY MOUTH EVERY DAY 30 tablet 025 Active Trelegy Ellipta 200-62.5-25 MCG/ACT aerosol powder 025 Active hydroCHLOROthiazi de 12.5 MG tablet 025 Active zolpidem (Ambien) 10 MG tabletIndications [...] per day. 90 tablet 1 025 Active montelukast (Singulair) 10 MG tablet TAKE 1 TABLET BY MOUTH EVERY DAY 30 tablet 4 025 Active propranolol (Inderal) 10 MG tabletIndications :Chronic nonintractable headache, unspecified headache type,Primary hypertension Take 1 tablet (10 mg) by mouth 3 times daily. 90 tablet 11 024 2024 Discontinued montelukast (Singulair) 10 MG tablet TAKE 1 TABLET BY MOUTH EVERY DAY 30 tablet 5 025 2024 Discontinued citalopram (CeleXA) 20 MG tabletIndications :Depressive disorder TAKE 1 TABLET BY MOUTH EVERY DAY 90 tablet 025 2024 Discontinued Active Problems Problem [...] intervention , Patient to reach out to [facility] team as needed, and Patient to [...] Que 6 hours prn SOB/cough. FU with Regional Account Director. Assessment & Plan (08/18/2024 11:43 AM EST): [...] scheduled already for 12/17/2023 No psychiatric disorder jamar watson after evaluation 07/19/2023 03/19/2024 Encounter for [...] Encounters Date Type Department Care Team Description 07/27/2025 Refill [facility] [address] [place] [address] Pat Juan FNP 07/13/2025 Refill [facility] [address] [place] [address] Pat Juan FNP Chronic nonintractable headache, unspecified headache type; Primary hypertension 07/08/[address] [address] Olivia Ramirez MD Depressive disorder 07/03/2025 Results Follow-Up [facility] [address] [place] [address] Pat Juan FNP POCT Glucose, POCT Hgb A1c, Comprehensive Metabolic Panel, Additional followed-up results: 3 07/01/[address] [address] Pat Juan FNP Care Coordination 06/29/2025 10:30 AM EDT Office Visit [address] [address] Pat Juan FNP Essential hypertension (Primary Dx); Type 2 diabetes mellitus without complication, without long-term current use of insulin (HCC); Encounter for immunization; Depressive disorder 06/29/2025 Travel 06/19/2025 Patient Outreach [address] [address] Pat Juan FNP Pre-visit Planning (SDOH screening completed on 03/18/2025) 06/15/[address] [address] Lori Werner MD Muscle spasm 06/13/2025 Orders Only [facility] External Provider, [facility] 06/05/2025 Refill [facility] [address] [place] [address] DrakePat giraldo, [facility] Depressive disorder 05/29/2025 Refill [facility] [address] [place] [address] Lori Werner MD 05/18/2025 Refill [facility] [address] [place] [address] Olivia Ramirez MD Muscle spasm 05/13/2025 10:30 AM EDT Clinical Support [facility] [address] [place] [address] Rochelle Horn, RN Primary hypertension 05/13/2025 Refill [facility] [address] [place] [address] [place] [facility] Depressive disorder 05/13/2025 Telephone [facility] [address] [place] [address] Rochelle Horn, RN Blood Pressure Check 05/13/2025 Travel 05/11/2025 Refill [facility] [address] [place] [address] Lori Werner MD Prediabetes; Hypoglycemia 04/30/2025 Telephone [facility] [address] [place] [address] [facility] from Last [facility] Months Immunizations Immunization Administration [...] 03/18/2025 Depression Screening 03/25/2026 03/25/2025, 03/25/20 25 Diabetes: Urine Protein Screening 06/30/2026 06/30/2025, 09/15/2024, [...] 9:12 AM EDT) Creatinine, Urine 187.30 mg/dL [facility] Microalbumin Urine 8.0 mg/L [facility] Microalbum Creatinine Ratio Ur 4.2 <30 ug/mg cr [facility] Comment:Albumin/Creatinine R atio Reference Ranges: Normal: < 30 ug/mg creatinine Microalbuminuria: 30 - 300 ug/mg creatinineClinical Albuminuria: > 300 ug/mg creatinine Urine 06/30/2025 9:12 AM EDT 06/30/2025 11:13 AM EDT [facility] LAB URINE ORDERABLES Final Re sult [facility] [address] [place] [phone] * (ABNORMAL) CBC auto differential (06/30/2025 9:12 AM EDT) White Blood Count 5.2 4.8 - 10.8 X10*3/uL [facility] Red Blood Count 3.92(L) 4.20 - 5.50 X10*6/uL [facility] Hemoglobin 12.4 12.0 - 16.0 g/dl [facility] Hematocrit 38.0 37.0 - 47.0 % [facility] Mean Corpuscular Volume 96.9 80.0 - 98.0 fL [facility] Mean Corpuscular Hemoglobin 31.6 27.0 - 33.0 pg [facility] Mean Corpuscular HGB Conc 32.6 31.0 - 35.0 g/dl [facility] Red Cell Distribution Width 14.5 11.0 - 16.0 % [facility] Platelet Count 243 160 - 400 X10*3/uL [facility] Mean Platelet Volume 10.6 9.4 - 12.3 fL [facility] Neutrophils Percent Auto 61.6 45 - 73 % [facility] Imm Gran Pct Auto 0.2 0.0 - 0.4 % [facility] Lymphocytes Percent Auto 26.0 20 - 40 % [facility] Monocytes Percent Auto 8.3 2 - 11 % [facility] Eosinophils Percent Auto 3.3 0 - 4 % [facility] Basophils Percent Auto 0.6 0 - 2 % [facility] NRBC Pct Auto 0.0 0.0 - 0.2 /100WBC [facility] Neutrophils Absolute Auto 3.2 2.0 - 8.3 x10*3/uL [facility] Imm Gran Abs Auto 0.01 0.00 - 0.03 X10*3/uL [facility] Lymphocytes Absolute Auto 1.4 1.2 - 4.9 X10*3/uL [facility] Monocytes Absolute Auto 0.4 0.1 - 1.2 X10*3/uL [facility] Eosinophils Absolute Auto 0.2 0.0 - 0.4 X10*3/uL [facility] Basophils Absolute Auto 0.0 0.0 - 0.2 X10*3/uL [facility] NRBC Abs Auto 0.000 0.0 - 0.012 X10*3/uL [facility] Blood Venous blood specimen / Unknown 06/30/2025 9:12 AM EDT 06/30/2025 11:09 AM EDT [facility] LAB BLOOD ORDERABLES Final Re sult Performing Organization Address City/[facility]/ZIP Co de Phone Number [facility] [address] [place] [phone] * Lipid Panel, Standard (06/30/2025 9:12 AM EDT) Triglycerides 116 <150 mg/dL [facility] Comment:Desirable Triglyceri de: less than 150 mg/dLBorderline High Triglyceride 150-199 mg/dLHigh Triglyceride: 200-499 mg/dLVery High Triglyceride: greater than or equal to 5OO mg/dL Cholesterol 141 <200 mg/dL [facility] Comment:Desirable Cholestero l: less than 200 mg/dLBorderline High Cholesterol: 200-239 mg/dLHigh Cholesterol: greater than 239 mg/dL LDL Cholesterol Calculated 70 <100 mg/dL [facility] Comment:Desirable LDL: less than 100 mg/dLNear Optimal/Above Optimal LDL: 110- 129 mg/dLBorderline High LDL: 130-159 mg/dLHigh LDL: 160-189 mg/dLVery High LDL: greater than or equal to 190 mg/dL HDL Cholesterol 48 >40 mg/dL [facility] Comment:Desirable HDL: great er than 40 mg/dL Note: This HDL assay may give artificially low results in patients with liver disease. Blood Venous blood specimen / Unknown 06/30/2025 9:12 AM EDT 06/30/2025 11:15 AM EDT [facility] LAB BLOOD ORDERABLES Final Re sult Performing Organization Address City/[facility]/ZIP Co de Phone Number [facility] [address] [place] [phone] * (ABNORMAL) Comprehensive Metabolic Panel (06/30/2025 9:12 AM EDT) Sodium 145 135 - 145 mmol/L [facility] Potassium 4.1 3.3 - 5.1 mmol/L [facility] Chloride 103 96 - 108 mmol/L [facility] Carbon Dioxide 31(H) 22 - 29 mmol/L [facility] Anion Gap 15 12 - 20 [facility] Urea Nitrogen (BUN) 21(H) 9 - 16 mg/dL [facility] Creatinine, Serum 1.18 0.5 - 1.4 mg/dL [facility] Estimated Glomerular Filt Rate 45 [facility] Comment:Chronic Kidney Disea se: Estimated GFR < 60 mL/min/[id number] Kidney Disease: Estimated GFR < 15 mL/min/1.73m2 Glucose 87 60 - 115 mg/dL [facility] Calcium 9.2 8.4 - 10.2 mg/dL [facility] Bilirubin, Total 0.8 0.0 - 1.0 mg/dL [facility] Aspartate Amino Transferase 28 5 - 31 U/L [facility] Alanine Aminotransferase 24 0 - 31 U/L [facility] Total Protein 7.4 6.5 - 8.0 g/dL [facility] Albumin Level 4.4 3.5 - 5.0 g/dL [facility] Alkaline Phosphatase 69 39 - 117 U/L [facility] Blood Venous blood specimen / Unknown 06/30/2025 9:12 AM EDT 06/30/2025 11:15 AM EDT [facility] LAB BLOOD ORDERABLES Final Re sult [facility] [address] [place] [phone] * POCT Hgb A1c (06/29/2025 10:52 AM EDT) Hemoglobin A1C 5.6 4.0 - 5.7 % QC Media Lot # [id number] Lot# Expiration Date Blood 06/29/2025 10:5 2 AM EDT [facility] POINT OF CARE TEST ENTER/EDIT ORDERABLES Final Result * POCT Glucose (06/29/2025 10:52 AM EDT) Glucose Blood, POC 127 60 - 200 mg/dL [employer] Lot # [id number] Lot# Expiration Date Blood Capillary blood specimen / Unknown 06/29/2025 10:52 AM EDT Result [facility] POINT OF CARE TEST ENTER/EDIT ORDERABLES Final Result * MR Knee w/o Contrast Right (06/15/2025 8:55 AM EDT) Anatomical Region Laterality Modality Magnetic Resonan ce 06/15/2025 8:55 AM EDT Narrative 06/15/2025 8:56 AM EDT [place] [address] Magnetic Resonance Report Signed Patient: Hedy Davis MR#: [id number] [birth year] : 1950 Acct:[id number] Age/Sex: 74 / F ADM Date: 06/13/25 Loc: HO.MRI Attending Dr: Terry Hernandes MD Ordering Physician: Terry Hernandes MD Date of Service: 06/13/25 Procedure(s): MR knee RT wo con Accession Number(s): [id number] cc: Terry Hernandes MD; [facility] Reason for Exam: [id number] - [...] in OV> 06/15/2556 DD/ 4 TD/TT: 06/15/25854 Chemists: Procedure Note Donotuseinterpreter, Image - 06/15/2025 [place] [address] Magnetic Resonance Report Signed Patient: Martín Davis#: [id number] [birth year] : 9Acct:[id number] Age/Sex: 74 / FADM Date: 06/13/25 Loc: HO.MRI Attending Dr: Terry Hrenandes MD Ordering Physician: Terry Hernandes MD Date of Service: 06/13/25 Procedure(s): MR knee RT wo con Accession Number(s): [id number] cc: Terry Hernandes MD; [facility] Reason for Exam: [id number] - [...] in OV> 06/15/2556 DD/ 4 TD/TT: 06/15/25854 Chemists: [facility] External Provider IMG MRI PROCEDURES Edited Result - Final * Hepatitis C Antibody with Reflex to HCV, RNA, Quantitative, Real-Time PCR (01/31/2023 4:01 PM EDT) Hepatitis C Antibody NON-REACT HERRERA NON-REACT HERRERA [facility] Index 0.09 <1.00 [facility] Comment: HCV antibody was non-reactive. There is no laboratory evidence of HCV infection. In most cases, no further action is required. However, if recent HCV exposure is suspected, a test for HCV RNA (test code 99316) is suggested. For additional information please refer to http://education.Njuice/faq/YST83g6 (This link is being provided for informational/ educational purposes only.) Blood Venous blood specimen / Unknown 01/31/2023 4:01 PM EDT 01/31/2023 4:01 PM EDT [facility] [employer] LAB BLOOD ORDERABLES Final Re sult [facility] [address], [place] [address] [employer] [address] [place] [address] * Hm Colonoscopy (08/24/2022) Colonoscopy Normal Normal Comment:[facility] - negative 08/24/2022 Historical Provider HEALTH MAINTENANCE Final Result from Last 3 Months or Most Recently Relevant to Health Maintenance Insurance [employer] MEDICARE REPLACEMENT HS PARTIAL Care Teams Director Sales Training Relationship Specialty Start Date End Date Pat Juan FNP [address] [place] [address] PCP - General Family Medicine 05/04/22
--- OUTSIDE RECORDS SUMMARY | 2025-07-29 09:32 | XMS_ITS | Encounter Summary ---
Author Organization [employer] Address [address] [facility] 7t [place] [address] Care Team Providers Care Playground Worker Name Role Phone [place] [facility] Primary Care Provider [phone] Reason for Visit * Reason Comments Med Refill Encounter Details Date Type Department Care Team ([facility] st Contact Info) Description 07/27/2025 Refill [facility] 230 [place], [place] [phone] [facility] 230 [place], [place] [phone] Social History Tobacco Use Types Packs/Day Years [...] documented as of this encounter Care Teams Playground Worker Relationship Specialty Start Date End Date Pat Juan FNP [address] [place] [address] PCP - General Family Medicine 05/04/22 documented as of this encounter
--- OUTSIDE RECORDS SUMMARY | 2025-07-29 09:33 | XMS_ITS | Encounter Summary ---
Author Organization [employer] Address [address] [facility] 7t [place] [address] Care Team Providers Care Software Quality Tester Name Role Phone Lind [facility] Primary Care Provider [phone] Reason for Visit * Reason Onset Date Comments Med Refill 01/21/2024 Encounter Details Date Type Department Care Team ([facility] st Contact Info) Description 01/21/2024 Telephone [facility] 230 [place], [place] [phone] [facility] 230 [place], [place] [phone] Med Refill Social History Tobacco Use Types [...] 11:57 AM EDT Medication was sent to [facility] on 11/26/23 #30 with 2 refills * Telephone Encounter - Eliana Varela - 01/21/2024 11:01 AM EDT TC from pt requesting medication refill. Medications needing refill : mirtazapine (Remeron SolTab) 45 MG disintegrating tablet To be sent to: [facility] at [place], [place] - [address] [place] [address] documented in this encounter Plan of Treatment Not on file documented as of this encounter Visit Diagnoses Not on filedocumented in this encounter Additional Health Concerns Assessment Noted Time PHQ-9 Depression Total Score: 7 01/04/20 24 8:14 AM EDT documented as of this encounter Care Teams Software Quality Tester Relationship Specialty Start Date End Date Pat Juan FNP [address] [place] [address] PCP - General Family Medicine 05/04/22 documented as of this encounter
--- OUTSIDE RECORDS SUMMARY | 2025-07-29 09:33 | XMS_ITS | Encounter Summary ---
Author Organization [employer] Address [address] [facility] 7t [place] [address] Care Team Providers Care Sewer System Supervisor Name Role Phone [facility] Primary Care Provider [phone] Reason for Visit * Reason Comments Med Refill Encounter Details Date Type Department Care Team ([facility] st Contact Info) Description 04/14/2024 Refill [facility] 230 [place], [place] [phone] [facility] 230 [place], [place] [phone] Depressive disorder Social History Tobacco Use Types [...] documented as of this encounter Care Teams Sewer System Supervisor Relationship Specialty Start Date End Date Pat Juan FNP [address] [place] [address] PCP - General Family Medicine 05/04/22 documented as of this encounter
--- OUTSIDE RECORDS SUMMARY | 2025-07-29 09:33 | XMS_ITS | Encounter Summary ---
Author Organization [employer] Address [address] [facility] 7t [place] [address] Care Team Providers Care Chief Compressor Station Engineer Name Role Phone Pat Juan AUTOM[employer] PA[employer] Primary Care Provider [phone] Encounter Details Date Type Department Care Team (Late st Contact Info) Description 08/09/2023 Abstract [facility] 230 [place], [place] [phone] Rhina Diez Social History Tobacco Use Types [...] as of this encounter Care Teams Chief Compressor Station Engineer Relationship Specialty Start Date End Date Pat Juan FNP [address] [place] [address] PCP - General Family Medicine 05/04/22 documented as of this encounter
--- OUTSIDE RECORDS SUMMARY | 2025-07-29 09:33 | XMS_ITS | Encounter Summary ---
Author Organization [employer] Address [address] [facility] 7t [place] [address] Care Team Providers Care Weather Anchor Name Role Phone [facility] Primary Care Provider [phone] Reason for Visit * Reason Comments Med Refill Encounter Details Date Type Department Care Team ([facility] st Contact Info) Description 02/21/2024 Refill [facility] 230 [place], [place] [phone] [facility] 230 [place], [place] [phone] Depressive disorder Social History Tobacco Use Types [...] documented as of this encounter Care Teams Weather Anchor Relationship Specialty Start Date End Date Pat Juan FNP [address] [place] [address] PCP - General Family Medicine 05/04/22 documented as of this encounter
--- OUTSIDE RECORDS SUMMARY | 2025-07-29 09:33 | XMS_ITS | Encounter Summary ---
Author Organization [employer] Address [address] [facility] 7t [place] [address] Care Team Providers Care Plant Sciences Professor Name Role Phone [facility] Primary Care Provider [phone] Reason for Visit * Reason Onset Date Comments Med Refill 02/29/2024 Encounter Details Date Type Department Care Team ([facility] st Contact Info) Description 02/29/2024 Telephone [facility] 230 [place], [place] [phone] [facility] 230 [place], [place] [phone] Med Refill Social History Tobacco Use Types [...] 10 MG tablet To be sent to: [facility] at [place], [place] - [address] [facility] documented in this encounter Plan of Treatment Not on file documented as of this encounter Visit Diagnoses Not on filedocumented in this encounter Additional Health Concerns Assessment Noted Time PHQ-9 Depression Total Score: 7 01/04/20 24 8:14 AM EDT documented as of this encounter Care Teams Plant Sciences Professor Relationship Specialty Start Date End Date Pat Juan FNP [address] [place] [address] PCP - General Family Medicine 05/04/22 documented as of this encounter
--- OUTSIDE RECORDS SUMMARY | 2025-07-29 09:33 | XMS_ITS | Encounter Summary ---
Author Organization [employer] Address [address] [facility] 7t [place] [address] Care Team Providers Care Viscose Cellar Worker Name Role Phone Brick [facility] Primary Care Provider [phone] Reason for Visit * Reason Onset Date Comments Med Refill 04/08/2025 Encounter Details Date Type Department Care Team ([facility] st Contact Info) Description 04/08/2025 Telephone [facility]INE 230 [place], [place] [phone] [facility] 230 [place], [place] [phone] Med Refill Social History Tobacco Use Types [...] MG disintegrating tablet To be sent to: [facility] at [place], [place] - [address] [place] [address] documented in this encounter Plan of Treatment Not on file documented as of this encounter Visit Diagnoses Not on filedocumented in this encounter Additional Health Concerns Assessment Noted Time PHQ-9 Depression Total Score: 0 03/25/20 11:20 AM EDT documented as of this encounter Care Teams Viscose Cellar Worker Relationship Specialty Start Date End Date Pat Juan FNP [address] [place] [address] PCP - General Family Medicine 05/04/22 documented as of this encounter
--- OUTSIDE RECORDS SUMMARY | 2025-07-29 09:33 | XMS_ITS | Encounter Summary ---
Author Organization [employer] Address [address] [facility] 7t [place] [address] Care Team Providers Care Senior Controller Name Role Phone Pat Juan AIR TRAFFIC CONTROL SUPERVISOR Primary Care Provider [phone] Encounter Details Date Type Department Care Team (Late st Contact Info) Description 04/17/2024 Orders Only [facility] 230 [place], [place] [phone] Lori Werner MD 230 [place], [place] [phone] Social History Tobacco Use Types Packs/Day Years [...] as of this encounter Care Teams Senior Controller Relationship Specialty Start Date End Date Pat Juan FNP [address] [place] [address] PCP - General Family Medicine 05/04/22 documented as of this encounter
--- OUTSIDE RECORDS SUMMARY | 2025-07-29 09:33 | XMS_ITS | Encounter Summary ---
Author Organization [employer] Address [address] [facility] 7t [place] [address] Care Team Providers Care Lab Clerk Name Role Phone Honor [facility] Primary Care Provider [phone] Reason for Visit * Reason Comments Med Refill Encounter Details Date Type Department Care Team ([facility] st Contact Info) Description 01/02/2024 Refill [facility] MED[facility]INE 230 [place], [place] [phone] [facility] 230 [place], [place] [phone] Tingling of both feet; Depressive disorder Social [...] documented as of this encounter Care Teams Lab Clerk Relationship Specialty Start Date End Date Pat Juan FNP [address] [place] [address] PCP - General Family Medicine 05/04/22 documented as of this encounter
== END 2025-07-29 09:28 | disposition home or self-care (01) ==
LOC: HO.HOS 08:58
PROVIDERS: Visit Provider Orthopaedic Surgery
DX: M17.11 Unilateral primary osteoarthritis, right knee (principal)
CPT/HCPCS: 20610; 99213

== ENCOUNTER → 2025-07-29 08:58 | Outpatient (BNVA) | payer MEDICARE, SELFPAY | PROVIDERS: Visit Provider Orthopaedic Surgery | DX: M17.11 Unilateral primary osteoarthritis, right knee (principal) | CPT/HCPCS: 20610; 99212; J1010; J2003 ==

== ENCOUNTER 2025-08-03 19:26 | Emergency (ER) | payer MEDICARE, SELFPAY ==
--- NOTE | ~2025-08-03 | XR_ITS ---
CLINICAL HISTORY: abd pain, vomiting 2 view abdomen, AP chest Comparison: None provided Findings: Mild right basilar atelectasis/pneumonitis. Cardiac silhouette and mediastinal contours are within upper limits of normal for technique. No small bowel dilatation. No free intraperitoneal air by radiographs. Severe stool burden present, including the cecum. Vascular calcifications include multiple phleboliths in the pelvis. Degenerative changes include imaged shoulders, AC joints, and hips. S shaped curvature of the imaged thoracic spine. IMPRESSION: 1. Mild right basilar atelectasis/pneumonitis. 2. No small bowel obstruction. 3. Severe stool burden This document has been electronically signed by: Peyman Dewey MD on 08/03/2025 23:38:05
[2025-08-03 19:37] VITALS: BP 141/90; PULSE 63; RESP 16; TEMP 36.3; O2SAT 96; BMI 27.1
--- NOTE | 2025-08-03 19:38 | ED.GENADULT ---
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 Shi Mak HPI narrative: 74-year-old female with a history of hypertension, hypothyroidism and osteoporosis presenting with epigastric abdominal pain, nausea, vomiting and diarrhea that is been ongoing since this morning. Patient reports sudden onset of symptoms that woke her from sleep. Has been feeling well prior to this. Denies associated fever, chest pain, difficulty breathing, cough or cold-type symptoms, known sick contacts or travel. No questionable food intake. History of cholecystectomy and hysterectomy. No recent antibiotic use. Related Data Home Medications ?Medication ?Instructions ?Recorded ?Confirmed acetaminophen 500 mg tablet 1,000 mg PO Q6H PRN pain 10/27/20 07/29/25 atorvastatin 40 mg tablet 40 mg PO DAILY 10/27/20 07/29/25 cetirizine 10 mg tablet 10 mg PO DAILY PRN Allergic 10/27/20 07/29/25 Symptoms montelukast 10 mg tablet 10 mg PO DAILY 10/27/20 07/29/25 multivitamin 1 tab PO DAILY 10/27/20 07/29/25 zolpidem 10 mg tablet 10 mg PO BEDTIME PRN Sleep 10/27/20 07/29/25 ascorbate calcium (vitamin C) 500 1 g PO Q6H 03/28/22 07/29/25 mg tablet cyanocobalamin (vitamin B-12) 1,000 mcg PO QAM 06/12/23 07/29/25 1,000 mcg tablet budesonide-formoterol HFA 160 inhalation 12/11/23 07/29/25 mcg-4.5 mcg/actuation aerosol inhaler citalopram 20 mg tablet 20 mg PO DAILY 12/11/23 07/29/25 mirtazapine 45 mg disintegrating 45 mg PO BEDTIME 12/11/23 07/29/25 tablet nebulizers 02/07/24 07/29/25 propranolol 20 mg tablet 10 mg PO DAILY 07/16/25 07/29/25 Previous Rx's ?Medication ?Instructions ?Recorded calcium citrate 500 mg (2 x 250 mg calcium) PO BID 03/03/21 90 days #360 tabs albuterol sulfate 90 mcg/actuation 2 inh inhalation Q4-6H PRN 06/21/23 breath activated powder inhaler shortness of breath or wheezing #1 ea albuterol sulfate 2.5 mg/3 mL 2.5 mg (3 mL) inhalation Q4-6H PRN 12/07/23 (0.083 %) solution for nebulization shortness of breath or wheezing #90 mL levothyroxine 75 mcg tablet 75 mcg PO DAILY #30 tabs 03/19/24 umeclidinium 62.5 mcg/actuation 1 inh inhalation DAILY 30 days #30 12/29/24 blister powder for inhalation ea (Incruse Ellipta) abaloparatide (Tymlos) 80 mcg (0.04 mL) subcut DAILY 05/22/25 #1.56 mL pen needle, diabetic 31 gauge x #100 ea 05/26/25/ fluticasone fur. 200 mcg-umeclid 1 inh inhalation DAILY 30 days #60 06/05/25 62.5 mcg-vilant 25 mcg ea inhalat.powder (Trelegy Ellipta) famotidine 20 mg tablet 20 mg PO BEDTIME #90 tabs 06/16/25 linaclotide 290 mcg capsule 290 mcg PO QAM #90 caps 06/16/25 (Linzess) pantoprazole 40 mg tablet,delayed 40 mg PO QAM #90 tabs 06/16/25 release olmesartan 40 mg tablet 40 mg PO DAILY #90 tabs 07/24/25 dicyclomine 20 mg tablet 20 mg PO TID #10 tabs 08/04/25 ondansetron 4 mg disintegrating 4 mg PO Q8H PRN nausea and 08/04/25 tablet vomiting #10 tabs Allergies Allergy/AdvReac Type Severity Reaction Status Date / Time morphine (MORPHINE) Allergy Unknown RASH Verified 08/03/25 19:41 Review of Systems Review of Systems: As per HPI, full review of systems performed and negative but for the above mentioned pertinent positives and negatives. [facility] Past Medical History Medical History Transaminitis Pulmonary nodules Allergies Kidney stone Back pain Arthritis HLD (hyperlipidemia) Hypothyroidism Diabetes Hypertension Asthma Hyperthyroidism Vitamin D deficiency Primary hyperparathyroidism Postablative hypothyroidism Surgical History History of craniotomy Hx of colonoscopy History of esophagogastroduodenoscopy (EGD) Hx of endoscopy S/P subtotal parathyroidectomy History of carpal tunnel release of both wrists Hx of cataract removal with insertion of prosthetic lens Hx of lithotripsy Hx of cholecystectomy Hx of hysterectomy Family History Family History Father No problems noted. Mother No problems noted. Social History Social History Household Members: Family Are you a primary health care recruiter to a significant other at home: No Do you presently have visiting nurse or other home services: No Alcohol intake: never Patient Tobacco Use Status: Never used Tobacco Physical Exam ED Exam Exam: GENERAL: Ill-Appearing, appears uncomfortable. SKIN: Normal skin color for ethnicity, warm, dry, no rashes noted. HEENT: Normocephalic, atraumatic, no stridor, dry mucous membranes, dentition intact, EOMI, PERRLA. NECK: Soft, supple, full ROM, midline structures nontender, no step-offs, no deformities, no lymphadenopathy. CHEST: Heart regular bradycardia, no murmurs, symmetric chest rise and fall. PULMONARY: Clear to auscultation bilaterally, diminished at the bases, no labored breathing, no wheezes/rhales/rhonchi. ABDOMINAL: Soft, nondistended, nontender, positive bowel sounds in all quadrants. : Deferred. MUSCULOSKELETAL: Normal tone, full range of motion, no deformities, no peripheral edema. NEURO: Alert and oriented x3, CN II through XII intact, equal strength and sensation bilateral upper and lower extremities, no focal neurologic deficits. PSYCHIATRIC: Flat affect, fluid speech, good eye contact and appropriate demeanor. Vital Signs: Vital Signs - 24 hr 08/03/25 19:37 08/03/25 20:51 08/03/25 22:26 Temperature 97.3 F 98.3 F 98.4 F Pulse Rate 63 56 57 Respiratory Rate 16 16 16 Blood Pressure 141/90 H 164/69 H 150/77 H Pulse Oximetry 96 96 96 Oxygen Delivery Method Room Air Room Air Room Air 08/03/25 23:14 08/04/25 02:51 Temperature 98.1 F 98.1 F Pulse Rate 49 L 49 L Respiratory Rate 16 16 Blood Pressure 174/75 H 174/75 H Pulse Oximetry 94 94 Oxygen Delivery Method Room Air Room Air BMI result Body Mass Index 27.1 Course Course Course Narrative: Rapid medical examination performed in triage by Earlene Travis PA-C: Patient is a 74 year old assigned female at presenting to the emergency department with nausea and vomiting. Detailed physical exam and review of systems are deferred to the tutoring clinician. EKG, lab, and swabs ordered. Patient placed back in the waiting room pending room availability and results. Medications Administered Discontinued Medications Generic Name Dose Route Start Last Admin Trade Name Freq PRN Reason Stop Dose Admin Lactated Ringer's 1,000 mls @ 999 mls/hr 08/03/25 22:19 08/04/25 00:20 Lr IV 08/03/25 23:19 Infused .Q1H1M ONE Infusion Acetaminophen 1,000 mg in 100 mls @ 400 mls/hr 08/03/25 22:19 08/03/25 23:09 Ofirmev IV 08/03/25 22:33 Infused ONCE ONE Infusion Ondansetron HCl 4 mg 08/03/25 22:19 08/03/25 22:41 Ondansetron Hcl 4 Mg/2 Ml Vial IVPUSH 08/03/25 22:20 4 mg ONCE ONE Administration Medical Decision Making Medical Decision Making [facility] Narrative: Patient presents today with a chief complaint of vomiting. Differential diagnosis includes surgical emergency such as obstruction or enteritis, as well as hyperglycemia, acidosis, food or drug ingestion, pancreatitis, CVA, allergic reaction such as anaphylaxis, cannabis hyperemesis syndrome or cyclic vomiting syndrome, among many others. Patient is not showing signs of acute dehydration or hemodynamic instability. They are having associated abdominal pain. Broad-based work-up was initiated based on above history and physical exam. Workup today is reassuring. No evidence of bowel obstruction on x-ray. She is tolerating oral intake after antiemetics and pain control in the emergency department. I suspect viral gastroenteritis given her clinical picture vomiting, diarrhea at the same time as well as this epigastric, periumbilical abdominal pain. Using shared decision making, plan for discharge home to follow-up with primary care and/or specialist. Patient understands and agrees with plan for discharge. Discharged home in stable condition. Differential Diagnosis Differential Diagnoses: The differential diagnosis associated with the presentation includes (As above) Admission/Observation Consideration of admission/observation: Escalation of care including admission/observation considered Lab Data MDM Lab Attestation statement: I reviewed the patient's lab results. 08/03/25 20:23 08/03/25 20:23 Labs: Lab Results 08/03/25 Range/Units 20:23 WBC 7.2 (4.8-10.8) X10*3/uL RBC 4.17 L (4.20-5.50) X10*6/uL Hgb 13.2 (12.0-16.0) g/dl Hct 40.2 (37.0-47.0) % MCV 96.4 (80.0-98.0) fL MCH 31.7 (27.0-33.0) pg MCHC 32.8 (31.0-35.0) g/dl RDW 14.1 (11.0-16.0) % Plt Count 253 (160-400) X10*3/uL MPV 10.6 (9.4-12.3) fL Immature Gran % (Auto) 0.1 (0.0-0.4) % Neut % (Auto) 70.2 (45-73) % Lymph % (Auto) 21.0 (20-40) % Larue % (Auto) 6.2 (2-11) % Eos % (Auto) 1.9 (0-4) % Baso % (Auto) 0.6 (0-2) % Lymph # (Auto) 1.5 (1.2-4.9) X10*3/uL Larue # (Auto) 0.5 (0.1-1.2) X10*3/uL Eos # (Auto) 0.1 (0.0-0.4) X10*3/uL Baso # (Auto) 0.0 (0.0-0.2) X10*3/uL Abs Immat Gran (auto) 0.01 (0.00-0.03) X10*3/uL Absolute Neuts (auto) 5.1 (2.0-8.3) x10*3/uL Absolute Nucleated RBC 0.000 (0.0-0.012) X10*3/uL Nucleated RBC % (auto) 0.0 (0.0-0.2) /100WBC Sodium 146 H (135-145) mmol/L Potassium 4.4 (3.3-5.1) mmol/L Chloride 107 (96-108) mmol/L Carbon Dioxide 27 (22-29) mmol/L Anion Gap 16 (12-20) BUN 18 H (9-16) mg/dL Creatinine 0.93 (0.5-1.4) mg/dL Estim Creat Clear Calc 46.2 Estimated GFR 59 Random Glucose 110 (60-115) mg/dL Calcium 9.6 (8.4-10.2) mg/dL Magnesium 2.2 (1.6-2.6) mg/dL Total Bilirubin 0.7 (0.0-1.0) mg/dL AST 34 H (5-31) U/L ALT 38 H (0-31) U/L Alkaline Phosphatase 78 (39-117) U/L Troponin I High Sens < 2.7 (<3.5-17.0) ng/L Total Protein 7.9 (6.5-8.0) g/dL Albumin 4.7 (3.5-5.0) g/dL Influenza Type A (PCR) NEGATIVE (Negative) Influenza Type B (PCR) NEGATIVE (Negative) RSV RNA Qual (PCR) NEGATIVE (Negative) SARS-CoV-2 RNA (RT-PCR) NEGATIVE (Negative) Radiology Impression Discussion of test interpretation with radiology: I have reviewed the radiologist's reading. Independent Historian Clinical information obtained from an independent historian. History obtained from or confirmed by: Other (Daughter) External Record Review External record reviewed: Inpatient record and Office record Prescription Management I considered prescription management with: Pain Medication and Other (Antiemetic) Chronic Conditions Patient?s care impacted by: Hypertension Discharge Plan Discharge Clinical Impression: Viral gastroenteritis, Acute abdominal pain Patient Disposition: Home, Self-Care Instructions: Gastroenteritis (ED) Additional Instructions: Use ondansetron for nausea has a. Use dicyclomine for abdominal cramping. If your symptoms do not improve or if you develop fevers greater than 100?, he should return to the hospital immediately. Call 911 with any medical emergency. Prescriptions: New dicyclomine 20 mg tablet 20 mg PO TID Qty: 10 0RF ondansetron 4 mg tablet,disintegrating 4 mg PO Q8H PRN (Reason: nausea and vomiting) Qty: 10 0RF No Action Incruse Ellipta 62.5 mcg/actuation blister with device 1 inh inhalation DAILY 30 Days Qty: 30 10RF Tymlos 80 mcg (3,120 mcg/1.56 mL) pen injector 80 mcg subcut DAILY Qty: 1.56 12RF Rx Instructions: inject into abdomen; do not inject within 2 inches of belly button/navel; rotate sites (DME) pen needle, diabetic 31 gauge x 3/16 needle See Rx Instructions .ROUTE .COMPLEX Qty: 100 4RF Dose Instruction: USE DIRECTED WITH TYMLOS Rx Instructions: USE DIRECTED WITH TYMLOS albuterol sulfate 90 mcg/actuation aerosol powdr breath activated 2 inh inhalation Q4-6H PRN (Reason: shortness of breath or wheezing) Qty: 1 0RF albuterol sulfate 2.5 mg /3 mL (0.083 %) solution for nebulization 2.5 mg inhalation Q4-6H PRN (Reason: shortness of breath or wheezing) Qty: 90 0RF zolpidem 10 mg tablet 10 mg PO BEDTIME PRN (Reason: Sleep) atorvastatin 40 mg tablet 40 mg PO DAILY montelukast 10 mg tablet 10 mg PO DAILY cetirizine 10 mg tablet 10 mg PO DAILY PRN (Reason: Allergic Symptoms) multivitamin Tablet 1 tab PO DAILY acetaminophen 500 mg tablet 1,000 mg PO Q6H PRN (Reason: pain) calcium citrate 250 mg calcium tablet 500 mg PO BID 90 Days Qty: 360 1RF ascorbate calcium (vitamin C) 500 mg tablet 1 g PO Q6H citalopram 20 mg tablet 20 mg PO DAILY mirtazapine 45 mg tablet,disintegrating 45 mg PO BEDTIME budesonide-formoterol 160-4.5 mcg/actuation HFA aerosol inhaler inhalation levothyroxine 75 mcg tablet 75 mcg PO DAILY Qty: 30 5RF (DME) nebulizers Misc See Rx Instructions .Route Rx Instructions: As directed Trelegy Ellipta 200-62.5-25 mcg blister with device 1 inh inhalation DAILY 30 Days Qty: 60 12RF famotidine 20 mg tablet 20 mg PO BEDTIME Qty: 90 2RF Linzess 290 mcg capsule 290 mcg PO QAM Qty: 90 3RF pantoprazole 40 mg tablet,delayed release (DR/EC) 40 mg PO QAM Qty: 90 1RF propranolol 20 mg tablet 10 mg PO DAILY Rx Instructions: PCP prescribed for headache prevention olmesartan 40 mg tablet 40 mg PO DAILY Qty: 90 3RF Rx Instructions: Note increased dose. cyanocobalamin (vitamin B-12) 1,000 mcg tablet 1,000 mcg PO QAM Interventions: ED Discharge Assessment Last Done: 08/04/25 02:51 Discharge Date/Time: 08/04/25 02:52 Print Language: Luxembourgish
--- NOTE | 2025-08-03 19:39 | ECG_ITS ---
Test Reason : N/V Blood Pressure : */* mmHG Vent. Rate : 55 BPM Atrial Rate : 55 BPM P-R Int : 132 ms QRS Dur : 82 ms QT Int : 454 ms P-R-T Axes : 5 -8 11 degrees QTcB Int : 434 ms Sinus bradycardia Nonspecific T wave abnormality Abnormal ECG When compared with ECG of 27-Oct-2024 13:26, Nonspecific T wave abnormality, worse in Anterior leads Referred By: Earlene Travis Electronically Signed By: JACQUE LANDAVERDE MD
[2025-08-03 20:28] LABS: MANUAL DIFF FLAG NO
[2025-08-03 20:29] LABS: Hematocrit 40.2 % (37.0-47.0); Hemoglobin 13.2 g/dl (12.0-16.0); Imm Gran Abs Auto 0.01 X10*3/uL (0.00-0.03); Imm Gran Pct Auto 0.1 % (0.0-0.4); Lymphocytes Absolute Auto 1.5 X10*3/uL (1.2-4.9); Mean Corpuscular HGB Conc 32.8 g/dl (31.0-35.0); Mean Corpuscular Hemoglobin 31.7 pg (27.0-33.0); Mean Corpuscular Volume 96.4 fL (80.0-98.0); NRBC Abs Auto 0.000 X10*3/uL (0.0-0.012); NRBC Pct Auto 0.0 /100WBC (0.0-0.2); Platelet Count 253 X10*3/uL (160-400); Red Blood Count 4.17 X10*6/uL (4.20-5.50); White Blood Count 7.2 X10*3/uL (4.8-10.8)
[2025-08-03 20:42] LABS: Alanine Aminotransferase 38 U/L (0-31); Albumin Level 4.7 g/dL (3.5-5.0); Alkaline Phosphatase 78 U/L (39-117); Anion Gap 16 (12-20); Aspartate Amino Transferase 34 U/L (5-31); Blood Urea Nitrogen 18 mg/dL (9-16); Calcium 9.6 mg/dL (8.4-10.2); Carbon Dioxide 27 mmol/L (22-29); Chloride 107 mmol/L (96-108); Creatinine Clr Calc Pharmacy 46.2; Estimated Glomerular Filt Rate 59; Magnesium 2.2 mg/dL (1.6-2.6); Potassium 4.4 mmol/L (3.3-5.1); Sodium 146 mmol/L (135-145); Total Protein 7.9 g/dL (6.5-8.0)
[2025-08-03 20:50] LABS: Troponin-I High Sensitivity < 2.7 ng/L (<3.5-17.0)
[2025-08-03 20:51] VITALS: BP 164/69; PULSE 56; RESP 16; TEMP 36.8; O2SAT 96
[2025-08-03 21:05] LABS: Resp Syncy Virus RNA Qual PCR NEGATIVE (Negative); SARS COV2 PCR INHOUSE NEGATIVE (Negative)
--- OUTSIDE RECORDS SUMMARY | 2025-08-03 21:49 | XMS_ITS | Clinical Summary ---
Author Organization [employer] Address [address] [facility] 7t [place] [address] Care Team Providers Care Offensive Coordinator Name Role Phone Pat Juan [facility] Primary Care Provider [phone] Allergies Active Allergy Reactions Criticality Noted Date Comments Morphine Rash Low 03/24/2011 Other reaction(s): Rash Medications * This document contains information received from the source organization and may not represent a complete record from that organization. glucose blood (SelSaharaTouch Ultra) test strip USE 1 STRIP by [...] 1 Active Blood Glucose Monitoring Suppl (FreeStyle [place] Lite) w/Device kitIndications:Pr ediabetes,Hypogly cemia Use to [...] hydroCHLOROthiazi de 12.5 MG tablet 025 Active mirtazapine (Remeron Eliana-Tab) 45 [...] EVERY DAY 30 tablet 4 025 Active zolpidem (Ambien) 10 MG tabletIndications :Depressive disorder TAKE 1 TABLET BY MOUTH DAILY AT BEDTIME 28 tablet Active propranolol (Inderal) 10 MG tabletIndications :Chronic [...] EVERY DAY 90 tablet 025 2024 Discontinued zolpidem (Ambien) 10 [...] idiopathic constipation 05/05/2023 Overview (05/05/2023): Followed by [facility] Linzess Numbness and tingling in left [...] reflux disease 06/02/2013 Overview (10/10/2024): Followed by [facility] Negative EGD 2021 Pantoprazole Pt seen [...] , Patient to reach out to [facility] team as needed, and Patient to engage [...] oxygen 2L PRN albuterol Followed by pulmonology [facility] Assessment & Plan (02/03/2025 4:57 PM EDT): Now stable continue with same interventions Assessment & Plan (10/30/2024 10:58 AM EST): Mild exacerbation due to Covid infection. Increase Symbicort to Que 6 hours prn SOB/cough. FU with [employer] [facility]. Assessment & Plan (08/18/2024 11:43 AM EST): [...] support system PLAN: 1. Follow up with [facility]: Recommended for follow-up: 07/31 @ 10am 2. Patient goal is to continue controlling symptoms. 3. Behavioral Recommendations a. F/u in 2 weeks. b. Continue use of coping skills Hyperkalemia 02/20/2018 10/24/2022 Encounters Date Type Department Care Team Description 08/03/2025 Orders Only GENERIC EXTERNAL DATA DEPARTMENT Provider, Generic External Data 07/31/2025 Refill [facility] [address] [place] [phone] Pat Juan FNP Depressive disorder 07/27/2025 Refill [facility] [address] [place] [address] Pat Juan FNP 07/13/2025 Refill [facility] [address] [place] [address] Pat Juan FNP Chronic nonintractable headache, unspecified headache type; Primary hypertension 07/08/[address] [address] Olivia Ramirez MD Depressive disorder 07/03/2025 Results Follow-Up [facility] [address] [place] [address] Pat Juan FNP POCT Glucose, POCT Hgb A1c, Comprehensive Metabolic Panel, Additional followed-up results: 3 07/01/2025 Telephone [facility] [address] [place] [phone] Pat Juan FNP Care Coordination 06/29/2025 10:30 AM EDT Office Visit [address] [address] Pat Juan FNP Essential hypertension (Primary Dx); Type 2 diabetes mellitus without complication, without long-term current use of insulin (HCC); Encounter for immunization; Depressive disorder 06/29/2025 Travel 06/19/2025 Patient Outreach [facility] [address] [facility] [place] [address] Pat Juan FNP Pre-visit Planning ([facility] screening completed on 03/18/2025) 06/15/2025 Refill [facility] [address] [place] [address] Lori Werner MD Muscle spasm 06/13/2025 Orders Only [facility] External Provider, [facility] 06/05/2025 Refill [facility] [address] [place] [address] Pat Juan FNP Depressive disorder 05/29/2025 Refill [facility] [address] [place] [address] Lori Werner MD 05/18/2025 Refill [facility] [address] [place] [address] Olivia Ramirez MD Muscle spasm 05/13/2025 10:30 AM EDT Clinical Support [facility] [address] [place] [address] Rochelle Horn, JACE Primary hypertension 05/13/2025 Refill [facility] [address] [place] [address] Pat Juan [facility] Depressive disorder 05/13/2025 Telephone [facility] [address] [place] [address] Rochelle Horn, JACE Blood Pressure Check 05/13/2025 Travel 05/11/2025 Refill [facility] [address] [place] [address] Lori Werner MD Prediabetes; Hypoglycemia from Last 3 Months Immunizations Immunization Administration [...] Diagnosis Comments HIGH SENSITIVITY TROPONIN I Routine 08/03/2025 8:23 PM EST MAGNESIUM Routine 08/03/2025 8:23 PM EST COMPREHENSIVE METABOLIC PANEL Routine 08/03/2025 8:23 PM EST CBC WITH AUTO DIFFERENTIAL Routine 08/03/2025 8:23 PM EST SARS COV2/INFLUENZA A/B AND RSV RNA QL NAAT Routine 08/03/2025 8:23 PM EST CBC WITH AUTO DIFFERENTIAL Routine 06/30/2025 9:12 [...] Recently Relevant to Health Maintenance Results * High Sensitivity Troponin I (08/03/2025 8:23 PM EST) TROPONIN I HIGH SENSITIVITY <2.7 <3.5 - 17.0 ng/L [facility] Comment:The [place] high sens itivity Troponin-I results should beused in conjunction with other diagnostic information suchas ECG, clinical observations and information, and patientsymptoms to aid in the diagnosis of PR. 08/03/2025 8:23 PM EST 08/03/2025 8:26 PM EST Generic External Data Provider LAB BLOOD ORDERAB LES Final Result Performing Organization Address [facility]/ZIP Co de Phone Number [facility] [address] [place] [phone] * SARS-CoV-2 RNA, Influenza A/B, and RSV RNA, Ql NAAT (08/03/2025 8:23 PM EST) Influenza A PCR NEGATIVE Negative [facility] Influenza B PCR NEGATIVE Negative [facility] Resp Syncy Virus RNA Qual PCR NEGATIVE Negative [facility] SARS COV2 PCR NEGATIVE Negative [facility] Comment:All test results mus t be [...] use by authorized laboratories.Testing performed on the [employer] GeneXpert utilizingreal-time RT-PCR.All SARS CoV2 and positive influenza A/B results arereported to [facility]. 08/03/2025 8:23 PM EST 08/03/2025 8:26 PM EST Generic External Data Provider LAB MICROBIOLOGY - GENERAL ORDERABLES Final Result Performing Organization Address [facility]/ZIP Co de Phone Number [facility] [address] [place] [phone] * (ABNORMAL) CBC auto differential (08/03/2025 8:23 PM EST) Only the most recent of2 resultswithin the time period is included. White Blood Count 7.2 4.8 - 10.8 X10*3/uL [facility] Red Blood Count 4.17(L) 4.20 - 5.50 X10*6/uL [facility] Hemoglobin 13.2 12.0 - 16.0 g/dl [facility] Hematocrit 40.2 37.0 - 47.0 % [facility] Mean Corpuscular Volume 96.4 80.0 - 98.0 fL [facility] Mean Corpuscular Hemoglobin 31.7 27.0 - 33.0 pg [facility] Mean Corpuscular HGB Conc 32.8 31.0 - 35.0 g/dl [facility] Red Cell Distribution Width 14.1 11.0 - 16.0 % [facility] Platelet Count 253 160 - 400 X10*3/uL [facility] Mean Platelet Volume 10.6 9.4 - 12.3 fL [facility] Neutrophils Percent Auto 70.2 45 - 73 % [facility] Imm Gran Pct Auto 0.1 0.0 - 0.4 % [facility] Lymphocytes Percent Auto 21.0 20 - 40 % [facility] Monocytes Percent Auto 6.2 2 - 11 % [facility] Eosinophils Percent Auto 1.9 0 - 4 % [facility] Basophils Percent Auto 0.6 0 - 2 % [facility] NRBC Pct Auto 0.0 0.0 - 0.2 /100WBC [facility] Neutrophils Absolute Auto 5.1 2.0 - 8.3 x10*3/uL [facility] Imm Gran Abs Auto 0.01 0.00 - 0.03 X10*3/uL [facility] Lymphocytes Absolute Auto 1.5 1.2 - 4.9 X10*3/uL [facility] Monocytes Absolute Auto 0.5 0.1 - 1.2 X10*3/uL [facility] Eosinophils Absolute Auto 0.1 0.0 - 0.4 X10*3/uL [facility] Basophils Absolute Auto 0.0 0.0 - 0.2 X10*3/uL [facility] NRBC Abs Auto 0.000 0.0 - 0.012 X10*3/uL [facility] 08/03/2025 8:23 PM EST 08/03/2025 8:26 PM EST Generic External Data Provider LAB BLOOD ORDERAB LES Final Result Performing Organization Address City/[facility]/ZIP Co de Phone Number [facility] [address] [place] [phone] * Magnesium (08/03/2025 8:23 PM EST) [facility] Magnesium 2.2 1.6 - 2.6 mg/dL [facility] 08/03/2025 8:23 PM EST 08/03/2025 8:26 PM EST Generic External Data Provider LAB BLOOD ORDERAB LES Final Result Performing Organization Address [facility] Co de Phone Number [facility] [address] [place] [phone] * (ABNORMAL) Comprehensive Metabolic Panel (08/03/2025 8:23 PM EST) Only the most recent of2 resultswithin the time period is included. Pathologist [facility] Sodium 146(H) 135 - 145 mmol/L [facility] Potassium 4.4 3.3 - 5.1 mmol/L [facility] Chloride 107 96 - 108 mmol/L [facility] Carbon Dioxide 27 22 - 29 mmol/L [facility] Anion Gap 16 12 - 20 [facility] Urea Nitrogen (BUN) 18(H) 9 - 16 mg/dL [facility] Creatinine, Serum 0.93 0.5 - 1.4 mg/dL [facility] Creatinine Clr Calc Pharmacy 46.2 [facility] Comment:Provided height and weight: 157.48 cm,67.3 kg.eGFR (calculated from the MDRD study equation) and eCrCl(calculated from the Cockcroft-Gault equation) are based ondifferent parameters and may not yield comparable results.If eCrCl result is absurd, please check patient'sheight/weight. Estimated Glomerular Filt Rate 59 [facility] Comment:Chronic Kidney Disea se: Estimated GFR < 60 mL/min/1.94x9Yaxekx Kidney Disease: Estimated GFR < 15 mL/min/1.73m2 Glucose 110 60 - 115 mg/dL [facility] Calcium 9.6 8.4 - 10.2 mg/dL [facility] Bilirubin, Total 0.7 0.0 - 1.0 mg/dL [facility] Aspartate Amino Transferase 34(H) 5 - 31 U/L [facility] Alanine Aminotransferase 38(H) 0 - 31 U/L [facility] Total Protein 7.9 6.5 - 8.0 g/dL [facility] Albumin Level 4.7 3.5 - 5.0 g/dL [facility] Alkaline Phosphatase 78 39 - 117 U/L [facility] 08/03/2025 8:23 PM EST 08/03/2025 8:26 PM EST us Generic External Data Provider LAB BLOOD ORDERAB LES Final Result [facility] [address] [place] [phone] * Albumin, Random Urine W/Creatinine (06/30/2025 9:12 AM EDT) Creatinine, Urine 187.30 mg/dL [facility] Microalbumin Urine 8.0 mg/L [facility] Microalbum Creatinine Ratio Ur 4.2 <30 ug/mg cr [facility] Comment:Albumin/Creatinine R atio Reference Ranges: Normal: < 30 ug/mg creatinine Microalbuminuria: 30 - 300 ug/mg creatinineClinical Albuminuria: > 300 ug/mg creatinine Urine 06/30/2025 9:12 AM EDT 06/30/2025 11:13 AM EDT [facility] LAB URINE ORDERABLES Final Re sult Performing Organization Address [facility] de Phone Number [facility] [address] [place] [address] [phone] * Lipid Panel, Standard (06/30/2025 9:12 AM EDT) Triglycerides 116 <150 mg/dL [facility] Comment:Desirable Triglyceri de: less than 150 mg/dLBorderline High Triglyceride 150-199 mg/dLHigh Triglyceride: 200-499 mg/dLVery High Triglyceride: greater than or equal to 5OO mg/dL Cholesterol 141 <200 mg/dL [facility] Comment:Desirable Cholestero l: less than 200 mg/dLBorderline High Cholesterol: 200-239 mg/dLHigh Cholesterol: greater than 239 mg/dL LDL Cholesterol Calculated 70 <100 mg/dL [facility] Comment:Desirable LDL: less than 100 mg/dLNear Optimal/Above Optimal LDL: 110- 129 mg/dLBorderline High LDL: 130-159 mg/dLHigh LDL: 160-189 mg/dLVery High LDL: greater than or equal to 190 mg/dL HDL Cholesterol 48 >40 mg/dL [facility] Comment:Desirable HDL: great er than 40 mg/dL Note: This HDL assay may give artificially low results in patients with liver disease. Blood Venous blood specimen / Unknown 06/30/2025 9:12 AM EDT 06/30/2025 11:15 AM EDT [facility] LAB BLOOD ORDERABLES Final Re sult Performing Organization Address [facility] Co de Phone Number [facility] [address] [place] [address] [phone] * POCT Hgb A1c (06/29/2025 10:52 AM EDT) Hemoglobin A1C 5.6 4.0 - 5.7 % QC Media Lot # [id number] Lot# Expiration Date Blood 06/29/2025 10:5 2 AM EDT [facility] POINT OF CARE TEST ENTER/EDIT ORDERABLES Final Result * POCT Glucose (06/29/2025 10:52 AM EDT) Glucose Blood, POC 127 60 - 200 mg/dL QC Media Lot # [id number] Lot# Expiration Date Blood Capillary blood specimen / Unknown 06/29/2025 10:52 AM EDT Result [facility] POINT OF CARE TEST ENTER/EDIT ORDERABLES Final Result * MR Knee w/o Contrast Right (06/15/2025 8:55 AM EDT) Anatomical Region Laterality Modality Magnetic Resonan ce 06/15/2025 8:55 AM EDT Narrative 06/15/2025 8:56 AM EDT [place] [address] Magnetic Resonance Report Signed Patient: Hedy Davis MR#: [id number] [birth year] : 1950 Acct:[id number] Age/Sex: 74 / F ADM Date: 06/13/25 Loc: HO.MRI Attending Dr: Terry Hernandes MD Ordering Physician: Terry Hernandes MD Date of Service: 06/13/25 Procedure(s): MR knee RT wo con Accession Number(s): [id number] cc: Terry Hernandes MD; [facility] Reason for Exam: S83.241A - Other tear [...] in OV> 06/15/2556 DD/ 4 TD/TT: 06/15/25854 Homebirth Midwife: Procedure Note Donotuseinterpreter, Image - 06/15/2025 [place] [address] Magnetic Resonance Report Signed Patient: Martín Davis#: [id number] [birth year] : 9Acct:[id number] Age/Sex: 74 / FADM Date: 06/13/25 Loc: HO.MRI Attending Dr: Terry Hernandes MD Ordering Physician: Terry Hernandes MD Date of Service: 06/13/25 Procedure(s): MR knee RT wo con Accession Number(s): [id number] cc: Terry Hernandes MD; [facility] Reason for Exam: S83.241A - Other tear [...] in OV> 06/15/2556 DD/ 4 TD/TT: 06/15/25854 Homebirth Midwife: [facility] External Provider IMG MRI PROCEDURES Edited Result - Final * Hepatitis C Antibody with Reflex to HCV, RNA, Quantitative, Real-Time PCR (01/31/2023 4:01 PM EDT) Hepatitis C Antibody NON-REACT HERRERA NON-REACT HERRERA [facility] Index 0.09 <1.00 Sentient Comment: HCV antibody was non-reactive. There is no laboratory evidence of HCV infection. In most cases, no further action is required. However, if recent HCV exposure is suspected, a test for HCV RNA (test code 53160) is suggested. For additional information please refer to http://education.DelaGet/faq/OGH74a0 (This link is being provided for informational/ educational purposes only.) Blood Venous blood specimen / Unknown 01/31/2023 4:01 PM EDT 01/31/2023 4:01 PM EDT [facility] HARD TILE SETTER APPRENTICE LAB BLOOD ORDERABLES Final Re sult [facility] [address], [place] [address] [employer] [address] [place] [address] * Hm Colonoscopy (08/24/2022) Colonoscopy Normal Normal Comment:[facility] - negative 08/24/2022 Historical Provider HEALTH MAINTENANCE Final Result from Last 3 Months or Most Recently Relevant to Health Maintenance Insurance [employer] MEDICARE REPLACEMENT HS PARTIAL Care Teams Offensive Coordinator Relationship Specialty Start Date End Date Pat Juan FNP [address] [place] [address] PCP - General Family Medicine 05/04/22
--- OUTSIDE RECORDS SUMMARY | 2025-08-03 21:49 | XMS_ITS | Encounter Summary ---
Author Organization [employer] Address [address] [facility] 7t [place] [address] Care Team Providers Care Opening Machine Cleaner Name Role Phone [facility] Primary Care Provider [phone] Reason for Visit * Reason Comments Med Refill Encounter Details Date Type Department Care Team ([facility] st Contact Info) Description 10/15/2024 Refill [facility] [address] [place], [place] [phone] [facility] [address] [place], [place] [phone] Depressive disorder Social History Tobacco Use Types [...] documented as of this encounter Care Teams Opening Machine Cleaner Relationship Specialty Start Date End Date Pat Juan FNP [address] [place] [address] PCP - General Family Medicine 05/04/22 documented as of this encounter
--- OUTSIDE RECORDS SUMMARY | 2025-08-03 21:49 | XMS_ITS | Encounter Summary ---
Author Organization [employer] Address [address] [facility] [address] [place] [address] Care Team Providers Care Clothes Marker Name Role Phone [facility] Primary Care Provider [phone] Reason for Visit * Reason Comments Med Refill Encounter Details Date Type Department Care Team ([facility] st Contact Info) Description 11/06/[address] [facility] [address] [place], [place] [phone] [facility] [address] [place], [place] [phone] Depressive disorder Social History Tobacco Use Types [...] documented as of this encounter Care Teams Clothes Marker Relationship Specialty Start Date End Date Pat Juan [facility] [address] [place] [address] PCP - General Family Medicine 05/04/22 documented as of this encounter
--- OUTSIDE RECORDS SUMMARY | 2025-08-03 21:49 | XMS_ITS | Encounter Summary ---
Author Organization [employer] Address [address] [facility] 7t [place] [address] Care Team Providers Care Senior Ux Designer Name Role Phone Pat Juan MULTIMEDIA SPECIALIST Primary Care Provider [phone] Encounter Details Date Type Department Care Team (Late st Contact Info) Description 08/03/2025 Orders Only GENERIC EXTERNAL DATA DEPARTMENT Provider, Generic External Data Social History Tobacco Use Types Packs/Day Years [...] TROPONIN I Routine 08/03/2025 8:23 PM EST SARS COV2/INFLUENZA A/B AND RSV RNA QL NAAT Routine 08/03/2025 8:23 PM EST CBC WITH AUTO DIFFERENTIAL Routine 08/03/2025 8:23 PM EST MAGNESIUM Routine 08/03/2025 8:23 PM EST COMPREHENSIVE METABOLIC PANEL Routine 08/03/2025 8:23 PM EST documented in this encounter Results * SARS-CoV-2 RNA, Influenza A/B, and RSV RNA, Ql NAAT (08/03/2025 8:23 PM EST) Influenza A PCR NEGATIVE Negative [facility] Influenza B PCR NEGATIVE Negative [facility] Resp Syncy Virus RNA Qual PCR NEGATIVE Negative [facility] SARS COV2 PCR NEGATIVE Negative [facility] Comment:All test results mus t [...] use by authorized laboratories.Testing performed on the [facility] GeneXpert utilizingreal-time RT-PCR.All SARS CoV2 and positive influenza A/B results arereported to [facility]. 08/03/2025 8:23 PM EST 08/03/2025 8:26 PM EST Generic External Data Provider LAB MICROBIOLOGY - GENERAL ORDERABLES Final Result Performing Organization Address [facility] de Phone Number [facility] [address] [place] [phone] * High Sensitivity Troponin I (08/03/2025 8:23 PM EST) [facility] TROPONIN I HIGH SENSITIVITY <2.7 <3.5 - 17.0 ng/L [facility] Comment:The [place] high sens itivity Troponin-I results should beused in conjunction with other diagnostic information suchas ECG, clinical observations and information, and patientsymptoms to aid in the diagnosis of NV. 08/03/2025 8:23 PM EST 08/03/2025 8:26 PM EST Generic External Data Provider LAB BLOOD ORDERAB LES Final Result Performing Organization Address [facility] [address] [place] [phone] * Magnesium (08/03/2025 8:23 PM EST) Pathologist [facility] Magnesium 2.2 1.6 - 2.6 mg/dL [facility] 08/03/2025 8:23 PM EST 08/03/2025 8:26 PM EST Generic External Data Provider LAB BLOOD ORDERAB LES Final Result Performing Organization Address [facility] Phone Number [facility] [address] [place] [phone] * (ABNORMAL) Comprehensive Metabolic Panel (08/03/2025 8:23 PM EST) Sodium 146(H) 135 - 145 mmol/L [facility] Potassium 4.4 3.3 - 5.1 mmol/L [facility] Chloride 107 96 - 108 mmol/L [facility] Carbon Dioxide 27 22 - 29 mmol/L [facility] Anion Gap 16 12 - 20 [facility] Urea Nitrogen (BUN) 18(H) 9 - 16 mg/dL [facility] Creatinine, Serum 0.93 0.5 - 1.4 mg/dL [facility] Creatinine Clr Calc Pharmacy 46.2 [facility] Comment:Provided height and weight: 157.48 cm,67.3 kg.eGFR (calculated from the MDRD study equation) and eCrCl(calculated from the Cockcroft-Gault equation) are based ondifferent parameters and may not yield comparable results.If eCrCl result is absurd, please check patient'sheight/weight. Estimated Glomerular Filt Rate 59 [facility] Comment:Chronic Kidney Disea se: Estimated GFR < 60 mL/min/1.44w9Kbskwf Kidney Disease: Estimated GFR < 15 mL/min/1.73m2 Glucose 110 60 - 115 mg/dL [facility] Calcium 9.6 8.4 - 10.2 mg/dL [facility] Bilirubin, Total 0.7 0.0 - 1.0 mg/dL [facility] Aspartate Amino Transferase 34(H) 5 - 31 U/L [facility] Alanine Aminotransferase 38(H) 0 - 31 U/L [facility] Total Protein 7.9 6.5 - 8.0 g/dL [facility] Albumin Level 4.7 3.5 - 5.0 g/dL [facility] Alkaline Phosphatase 78 39 - 117 U/L [facility] 08/03/2025 8:23 PM EST 08/03/2025 8:26 PM EST us Generic External Data Provider LAB BLOOD ORDERAB LES Final Result [facility] [address] [place] [phone] * (ABNORMAL) CBC auto differential (08/03/2025 8:23 PM EST) White Blood Count 7.2 4.8 - 10.8 X10*3/uL [facility] Red Blood Count 4.17(L) 4.20 - 5.50 X10*6/uL [facility] Hemoglobin 13.2 12.0 - 16.0 g/dl [facility] Hematocrit 40.2 37.0 - 47.0 % [facility] Mean Corpuscular Volume 96.4 80.0 - 98.0 fL [facility] Mean Corpuscular Hemoglobin 31.7 27.0 - 33.0 pg [facility] Mean Corpuscular HGB Conc 32.8 31.0 - 35.0 g/dl [facility] Red Cell Distribution Width 14.1 11.0 - 16.0 % [facility] Platelet Count 253 160 - 400 X10*3/uL [facility] Mean Platelet Volume 10.6 9.4 - 12.3 fL [facility] Neutrophils Percent Auto 70.2 45 - 73 % [facility] Imm Gran Pct Auto 0.1 0.0 - 0.4 % [facility] Lymphocytes Percent Auto 21.0 20 - 40 % [facility] Monocytes Percent Auto 6.2 2 - 11 % [facility] Eosinophils Percent Auto 1.9 0 - 4 % [facility] Basophils Percent Auto 0.6 0 - 2 % [facility] NRBC Pct Auto 0.0 0.0 - 0.2 /100WBC [facility] Neutrophils Absolute Auto 5.1 2.0 - 8.3 x10*3/uL [facility] Imm Gran Abs Auto 0.01 0.00 - 0.03 X10*3/uL [facility] Lymphocytes Absolute Auto 1.5 1.2 - 4.9 X10*3/uL [facility] Monocytes Absolute Auto 0.5 0.1 - 1.2 X10*3/uL [facility] Eosinophils Absolute Auto 0.1 0.0 - 0.4 X10*3/uL [facility] Basophils Absolute Auto 0.0 0.0 - 0.2 X10*3/uL [facility] NRBC Abs Auto 0.000 0.0 - 0.012 X10*3/uL [facility] 08/03/2025 8:23 PM EST 08/03/2025 8:26 PM EST us Generic External Data Provider LAB BLOOD ORDERAB LES Final Result [facility] [address] [place] [phone] documented in this encounter Visit Diagnoses Not on filedocumented in this encounter Additional Health Concerns Assessment Noted Time PHQ-9 Depression Total Score: 0 03/25/20 25 11:20 AM EDT documented as of this encounter Care Teams Senior Ux Designer Relationship Specialty Start Date End Date Pat Juan FNP [address] [place] [address] PCP - General Family Medicine 05/04/22 documented as of this encounter
--- OUTSIDE RECORDS SUMMARY | 2025-08-03 21:50 | XMS_ITS | Clinical Summary ---
Author Organization [address] [facility] Address [address] [place] [address] Phone Care Team Providers Care Mine Promotor Name Role Phone [facility] Primary Care Provider [phone] Allergies Active Allergy Reactions Criticality Noted Date [...] Problem Noted Date Diagnosed Date Meningioma, cerebral ([facility] V24, [facility] V28) 07/19/2023 Overview (07/22/2024): [...] it for her from the [facility] pharmacy. Encounters Date Type Department Care Team Description 07/21/2025 1:42 PM EDT - 07/21/2025 11:59 PM EDT Hospital Encounter [facility] MRI [address] [place] [address] Meningioma, cerebral ([facility] V24, [facility] V28) Discharge Disposition: Home or Self Care [...] HISTORICAL LITHOTRIPSY OTHER SURGICAL HISTORY 07/31/2023 PROCEDURE: OR CRNEC TREPHINE BONE FLAP MENINGIOMA SUPRATENTOR; COMMENT: [...] Routine 07/21/2025 2:41 PM EDT Meningioma, cerebral ([facility] V24, [facility] V28) from Last 3 Months Results * [...] Signed Date: 07/24/2025 12:14 ET Workstation ID: [id number] Transcribed By: Self Edit Transcribed Date: 07/24/2025 [...] Signed Date: 07/24/2025 12:14 ET Workstation ID: [id number] Transcribed By: Self Edit Transcribed Date: 07/24/2025 12:10 ET us Saundra Ríos MD IMG MRI PROCEDURES Final Result from Last 3 Months Insurance [employer] MED[employer]ARE [employer]AGE Care Teams Mine Promotor Relationship Specialty Start Date End Date [facility] [address] [place] [phone] PCP - General Family Medicine 07/28/24
--- OUTSIDE RECORDS SUMMARY | 2025-08-03 21:50 | XMS_ITS | Encounter Summary ---
Author Organization [employer] Address [address] [facility] 7t [place] [address] Care Team Providers Care Sewer Separation Designer Name Role Phone [facility] Primary Care Provider [phone] Reason for Visit * Reason Onset Date Comments Med Refill 01/21/2024 Encounter Details Date Type Department Care Team ([facility] st Contact Info) Description 01/21/2024 Telephone [facility] MEDICINE [address] [place], [place] [phone] [facility] [address] [place], [place] [phone] Med Refill Social History Tobacco Use Types [...] 11:57 AM EDT Medication was sent to [facility] on 11/26/23 #30 with 2 refills * Telephone Encounter - Eliana Varela - 01/21/2024 11:01 AM EDT TC from pt requesting medication refill. Medications needing refill : mirtazapine (Remeron SolTab) 45 MG disintegrating tablet To be sent to: [facility] at [place], [place] - [address] [place] [address] documented in this encounter Plan of Treatment Not on file documented as of this encounter Visit Diagnoses Not on filedocumented in this encounter Additional Health Concerns Assessment Noted Time PHQ-9 Depression Total Score: 7 01/04/20 24 8:14 AM EDT documented as of this encounter Care Teams Sewer Separation Designer Relationship Specialty Start Date End Date Pat Juan FNP [address] [place] [address] PCP - General Family Medicine 05/04/22 documented as of this encounter
--- OUTSIDE RECORDS SUMMARY | 2025-08-03 21:50 | XMS_ITS | Encounter Summary ---
Author Organization [employer] Address [address] [facility] 7t [place] [address] Care Team Providers Care Drainlayer Name Role Phone [facility] Primary Care Provider [phone] Reason for Visit * Reason Comments Med Refill Encounter Details Date Type Department Care Team ([facility] st Contact Info) Description 01/02/2024 Refill [facility] MEDICINE 230 [place], [place] [phone] [facility] [address] [place], [place] [phone] Tingling of both feet; Depressive disorder Social [...] co ntrol worrying 1 01/04/2024 8:15 AM FLORIADLMAT Joe Castañeda Worrying too much about diff [...] documented as of this encounter Care Teams Drainlayer Relationship Specialty Start Date End Date Pat Juan FNP [address] [place] [address] PCP - General Family Medicine 05/04/22 documented as of this encounter
--- OUTSIDE RECORDS SUMMARY | 2025-08-03 21:50 | XMS_ITS | Encounter Summary ---
Author Organization [employer] Address [address] [facility] 7t [place] [address] Care Team Providers Care Printer Operator Name Role Phone Pat Juan FOREIGN SERVICE OFFICER Primary Care Provider [phone] Reason for Visit * Reason Comments Med Refill Encounter Details Date Type Department Care Team (Late st Contact Info) Description 10/24/2023 Refill [facility] MEDICINE 230 [place], [place] [phone] Tracee Coulter ANP [address] [place], [place] [phone] Depressive disorder Social History Tobacco Use Types [...] documented as of this encounter Care Teams Printer Operator Relationship Specialty Start Date End Date Pat Juan FNP [address] [place] [address] PCP - General Family Medicine 05/04/22 documented as of this encounter
--- OUTSIDE RECORDS SUMMARY | 2025-08-03 21:50 | XMS_ITS | Encounter Summary ---
Author Organization [employer] Address [address] [facility] 7t [place] [address] Care Team Providers Care Teaching Specialists Name Role Phone Pat Juan FLOAT PHLEBOTOMIST Primary Care Provider [phone] Encounter Details Date Type Department Care Team (Late st Contact Info) Description 08/09/2023 Abstract [facility] MEDICINE [address] [place], [place] [phone] Rhina Diez Social History Tobacco Use Types [...] documented as of this encounter Care Teams Teaching Specialists Relationship Specialty Start Date End Date Pat Juan FNP [address] [place] [phone] PCP - General Family Medicine 05/04/22 documented as of this encounter
--- OUTSIDE RECORDS SUMMARY | 2025-08-03 21:50 | XMS_ITS | Encounter Summary ---
Author Organization [employer] Address [address] [facility] 7t [place] [address] Care Team Providers Care Superintendent Circus Name Role Phone [facility] Primary Care Provider [phone] Reason for Visit * Reason Comments Med Refill Encounter Details Date Type Department Care Team ([facility] st Contact Info) Description 04/14/[address] [facility] MEDICINE [address] [place], [place] [phone] [facility] 230 [place], [place] [phone] Depressive disorder Social History Tobacco Use Types [...] documented as of this encounter Care Teams Superintendent Circus Relationship Specialty Start Date End Date Pat Juan FNP [address] [place] [address] PCP - General Family Medicine 05/04/22 documented as of this encounter
--- OUTSIDE RECORDS SUMMARY | 2025-08-03 21:50 | XMS_ITS | Encounter Summary ---
Author Organization [employer] Address [address] [facility] 7t [place] [address] Care Team Providers Care Behavior Therapist Name Role Phone [facility] Primary Care Provider [phone] Reason for Visit * Reason Onset Date Comments Med Refill 07/31/2025 Encounter Details Date Type Department Care Team ([facility] st Contact Info) Description 07/31/2025 Refill [facility] MEDICINE 230 [place], [place] [phone] [facility] [address] [place], [place] [phone] Depressive disorder Social History Tobacco Use Types [...] Telephone Encounter - Cynthia Crespo LPN - 07/31/2025 2:11 PM EST CORE SUCKER checked on 07/31/25. Last seen 06/29/25. * Telephone Encounter - Merline Wilson - 07/31/2025 2:08 PM EST TC from pt requesting medication refill. Medications needing refill : zolpidem (Ambien) 10 MG tablet To be sent to: [facility] at [place], [place] - [address] [facility] documented in this encounter Plan of Treatment Not on file documented as of this encounter Visit Diagnoses Diagnosis Depressive disorder Depressive disorder, not elsewhere classified documented in this encounter Additional Health Concerns Assessment Noted Time PHQ-9 Depression Total Score: 0 03/25/20 11:20 AM EDT documented as of this encounter Care Teams Behavior Therapist Relationship Specialty Start Date End Date Pat Juan FNP [address] [place] [address] PCP - General Family Medicine 05/04/22 documented as of this encounter
--- OUTSIDE RECORDS SUMMARY | 2025-08-03 21:50 | XMS_ITS | Encounter Summary ---
Author Organization [employer] Address 75 [facility] 7t [place] [address] Care Team Providers Care Occupational Health Physiotherapist Name Role Phone [facility] Primary Care Provider [phone] Reason for Visit * Reason Onset Date Comments Med Refill 04/08/2025 Encounter Details Date Type Department Care Team ([facility] st Contact Info) Description 04/08/2025 Telephone [facility] MEDICINE [address] [place], [place] [phone] [facility] 230 [place], [place] [phone] Med Refill Social History Tobacco Use Types [...] MG disintegrating tablet To be sent to: [facility] at [place], [place] - [address] [place] [address] documented in this encounter Plan of Treatment Not on file documented as of this encounter Visit Diagnoses Not on filedocumented in this encounter Additional Health Concerns Assessment Noted Time PHQ-9 Depression Total Score: 0 03/25/20 11:20 AM EDT documented as of this encounter Care Teams Occupational Health Physiotherapist Relationship Specialty Start Date End Date Pat Juan FNP [address] [place] [address] PCP - General Family Medicine 05/04/22 documented as of this encounter
--- OUTSIDE RECORDS SUMMARY | 2025-08-03 21:50 | XMS_ITS | Encounter Summary ---
Author Organization [employer] Address [address] [facility] 7t [place] [address] Care Team Providers Care Cinder Crane Operator Name Role Phone [facility] Primary Care Provider [phone] Reason for Visit * Reason Comments Med Refill Encounter Details Date Type Department Care Team ([facility] st Contact Info) Description 02/21/2024 Refill [facility] MEDICINE [address] [place], [place] [phone] [facility] [address] [place], [place] [phone] Depressive disorder Social History Tobacco Use Types [...] documented as of this encounter Care Teams Cinder Crane Operator Relationship Specialty Start Date End Date Pat Juan FNP [address] [place] [address] PCP - General Family Medicine 05/04/22 documented as of this encounter
--- OUTSIDE RECORDS SUMMARY | 2025-08-03 21:50 | XMS_ITS | Encounter Summary ---
Author Organization [employer] Address [address] [facility] 7t [place] [address] Care Team Providers Care Fire Technology Instructor Name Role Phone [facility] Primary Care Provider Reason for Visit * Reason Comments Med Refill Encounter Details Date Type Department Care Team ([facility] st Contact Info) Description 11/08/2023 Refill [facility] MEDICINE 230 [place], [place] [phone] [facility] 230 [place], [place] [phone] Tingling of both feet Social History Tobacco [...] documented as of this encounter Care Teams Fire Technology Instructor Relationship Specialty Start Date End Date Pat Juan FNP [address] [place] [address] PCP - General Family Medicine 05/04/22 documented as of this encounter
--- OUTSIDE RECORDS SUMMARY | 2025-08-03 21:50 | XMS_ITS | Encounter Summary ---
Author Organization [employer] Address [address] [facility] 7t [place] [address] Care Team Providers Care Sports Trainer Name Role Phone [place] [facility] Primary Care Provider [phone] Reason for Visit * Reason Comments Med Refill Encounter Details Date Type Department Care Team ([facility] st Contact Info) Description 12/06/2023 Refill [facility] MEDICINE [address] [place], [place] [phone] [facility] 230 [place], [place] [phone] Depressive disorder Social History Tobacco Use Types [...] documented as of this encounter Care Teams Sports Trainer Relationship Specialty Start Date End Date Pat Juan FNP [address] [place] [phone] PCP - General Family Medicine 05/04/22 documented as of this encounter
--- OUTSIDE RECORDS SUMMARY | 2025-08-03 21:50 | XMS_ITS | Encounter Summary ---
Author Organization [employer] Address [address] [facility] 7t [place] [address] Care Team Providers Care Plumbing Contractor Name Role Phone [facility] Primary Care Provider [phone] Reason for Visit * Reason Onset Date Comments Med Refill 02/29/2024 Encounter Details Date Type Department Care Team ([facility] st Contact Info) Description 02/29/2024 Telephone [facility] MEDICINE 230 [place], [place] [phone] [facility] [address] [place], [place] [phone] Med Refill Social History Tobacco Use Types [...] 10 MG tablet To be sent to: [facility] at [place], [place] - [address] [facility] documented in this encounter Plan of Treatment Not on file documented as of this encounter Visit Diagnoses Not on filedocumented in this encounter Additional Health Concerns Assessment Noted Time PHQ-9 Depression Total Score: 7 01/04/20 24 8:14 AM EDT documented as of this encounter Care Teams Plumbing Contractor Relationship Specialty Start Date End Date Pat Juan FNP [address] [place] [address] PCP - General Family Medicine 05/04/22 documented as of this encounter
--- OUTSIDE RECORDS SUMMARY | 2025-08-03 21:50 | XMS_ITS | Encounter Summary ---
Author Organization [employer] Address [address] [facility] 7t [place] [address] Care Team Providers Care Laboratory Supervisor Name Role Phone Pat Juan GRAIN BROKER Primary Care Provider [phone] Encounter Details Date Type Department Care Team (Late st Contact Info) Description 04/17/2024 Orders Only [facility] MEDICINE 230 [place], [place] [phone] Lori Werner MD [address] [place], [place] [phone] Social History Tobacco Use Types Packs/Day Years [...] documented as of this encounter Care Teams Laboratory Supervisor Relationship Specialty Start Date End Date Pat Juan FNP [address] [place] [address] PCP - General Family Medicine 05/04/22 documented as of this encounter
[2025-08-03 22:26] VITALS: BP 150/77; PULSE 57; RESP 16; TEMP 36.9; O2SAT 96
[2025-08-03] MEDS: Lactated Ringers 1,000 ML 999 ML IV (22:41)
[2025-08-03 23:14] VITALS: BP 174/75; PULSE 49; RESP 16; TEMP 36.7; O2SAT 94
--- NOTE | 2025-08-03 23:15 | MHC.EDTECH ---
This tech took over care of pt at 2300, rounds and vitals completed, patient's BP is elevated and HR is low , provider and RN made aware, pt placed on the potline monitor, pt is resting quietly,daughter at bedside,call chong in reach
[2025-08-04 02:51] VITALS: BP 174/75; PULSE 49; RESP 16; TEMP 36.7; O2SAT 94
== END 2025-08-04 02:52 | disposition home or self-care (01) ==
PROVIDERS: Physician Assistant Medical; Emergency Provider Emergency Medicine; PCP Registered Nurse
DX: A08.4 Viral intestinal infection, unspecified (principal); R10.9 Unspecified abdominal pain; R11.2 Nausea with vomiting, unspecified; R19.7 Diarrhea, unspecified; R00.1 Bradycardia, unspecified; Z03.818 Encounter for observation for suspected exposure to other biological agents ruled out; I10 Essential (primary) hypertension
CPT/HCPCS: 74022; 80053; 83735; 84484; 85025; 87637; 93005; 96361; 96374; 96375; 99283; 99284; 99285; J0131; J2405; J7120

== ENCOUNTER → 2025-08-03 19:39 | Outpatient (BNV) | payer MEDICARE, SELFPAY | PROVIDERS: Emergency Provider Emergency Medicine; PCP Registered Nurse; Visit Provider Internal Medicine Cardiovascular Disease | DX: R00.1 Bradycardia, unspecified (principal) | CPT/HCPCS: 93010 ==

== ENCOUNTER → 2025-08-03 22:19 | Outpatient (BNV) | payer MEDICARE, SELFPAY | PROVIDERS: Emergency Provider Emergency Medicine; PCP Registered Nurse; Visit Provider Radiology Neuroradiology | DX: R10.9 Unspecified abdominal pain (principal); R11.10 Vomiting, unspecified | CPT/HCPCS: 74022 ==

== ENCOUNTER 2025-08-07 12:06 | Outpatient (REF) | payer MEDICARE, SELFPAY ==
--- NOTE | ~2025-08-07 | MM_ITS ---
EXAMINATION: DXA BONE DENSITY EXTREMITY HISTORY: M81.0 - Age-related osteoporosis without current pathological fracture TECHNIQUE: [employer] Dual energy absorptiometry (DEXA) of the lumbar spine, total left hip, and femoral neck was performed. COMPARISON: Comparison is made with the prior examination , most recent dated April 2023. FINDINGS: The bone mineral density of the lumbar spine (L1-L4) is 0.816 g/cm2, corresponding to a T-score of -3.0, and a Z-score of -1.2. This is indicative of osteoporosis. Prior bone mineral density (L1-L3) was 0.660 g/sq cm. Comparison can't be made due to different levels. The bone mineral density of the left total hip is 0.718 g/cm2, corresponding to a T-score of -2.3, and a Z-score of -0.4. This is indicative of osteopenia. This represents a BMD change of 3.3% compared to the prior exam. The bone mineral density of the left femoral neck is 0.675 g/cm2, corresponding to a T-score of -2.6, and a Z-score of -0.6. This is indicative of osteoporosis. This represents a BMD change of 3.1% compared to the prior exam. The bone mineral density of the left forearm is 0.600 g/cm2, corresponding to a T-score of -3.1, and a Z-score of -0.7. This is indicative of osteoporosis. This represents a BMD change of 0.7% compared to the prior exam. MM/XR DEXA appendicular skeleton IMPRESSION: Based on bone mineral density, and according to World Health Organization (WHO) criteria, the diagnosis is consistent with osteoporosis based on lowest T score of -3.1 in the left forearm. No appreciable change compared to most recent previous exam April 2023. Treatment Recommendations: NOF guidelines recommend consideration for treatment in postmenopausal women and men age 50 and older presenting with the following: -A hip or vertebral (clinical or morphometric) fracture. -T-score less than or equal to -2.5 at the femoral neck or spine after appropriate evaluation to exclude secondary causes. -Low bone mass at the hip or spine and a 10-year fracture probability by FRAX of greater than or equal to 3% for hip fracture or greater than or equal to 20% for major osteoporotic fracture based on the [place] adapted WHO algorithm. Other Recommendations: All treatment decisions require clinical judgment and consideration of individual patient factors, including patient preferences, comorbidities, previous drug use, risk factors not captured in the FRAX model (e.g. frailty, falls, vitamin D deficiency, increased bone turnover, interval significant decline in bone density) and possible under or overestimation of fracture risk by FRAX. Additional medical evaluation for secondary cause of low bone mineral density may be appropriate. FUTURE SCAN RECOMMENDATION: People with diagnosed cases of osteoporosis or at high risk for fracture should have regular bone mineral density tests. For patients eligible for Medicare, routine testing is allowed once every 2 years. The testing frequency can be increased to one year for patients who have rapidly progressing disease, those who are receiving or discontinuing medical therapy to restore bone mass, or have additional risk factors. Statistically, 68% of repeat scans fall within 1 SD (+/- 0.010 g/cm2 for AP spine L1-L4) and 1 SD (+/- 0.012 g/cm2 for femur total) FRAX is a trademark of the [employer], a World Health Organization (WHO) Collaborating Center. Electronically signed by: Belén Hui MD 08/07/2025 04:39 PM RINA
--- OUTSIDE RECORDS SUMMARY | 2025-08-07 18:11 | XMS_ITS | Clinical Summary ---
Author Organization [facility] Address [address] [place] [address] Care Team Providers Care Supervisor Shed Workers Name Role Phone Unavailable Primary Care Provider [...] Drug Screen 09/24/2024 Depression Annual Screen 09/24/2024 [id number] (3 - 2024- season) 2025 021, 12/15/2020 Imm-Influenza (#1) 2025 08/13/2019, 1 10/07/2016, 06/17/2015, Additional history exists Imm-Pneumococcal 50+ Completed 08/07/2017, 09/02/2015, 09/26/2007 Insurance [place] [employer] [employer]
--- OUTSIDE RECORDS SUMMARY | 2025-08-07 18:12 | XMS_ITS | Encounter Summary ---
Author Organization [employer] Address [address] [facility] [address] [place] [address] Care Team Providers Care Wastewater Project Engineer Name Role Phone [facility] Primary Care Provider [phone] Reason for Visit * Reason Comments Med Refill Encounter Details Date Type Department Care Team ([facility] Contact Info) Description 11/06/2022 Refill [facility] [address], [place] [phone] [facility] [address] [place], [place] [id number] Depressive disorder Social History Tobacco Use Types [...] Department Care Team (Late Contact Info) Description 08/10/2025 11:30 AM EST Office Visit [facility] MED[facility]INE [address] [place] [address] [phone] [facility] [address] [place], [place] [phone] 09/30/2025 10:00 AM EST Office Visit [facility] [address] [place] [address] Pat Juan FNP [address] [place] [address] documented as of this encounter Visit Diagnoses Diagnosis Depressive disorder Depressive disorder, not elsewhere classified documented in this encounter Additional Health Concerns Assessment Noted Time PHQ-9 Depression Total Score: 0 10/24/19 10:40 AM EST documented as of this encounter Care Teams Wastewater Project Engineer Relationship Specialty Start Date End Date Pat Juan FNP [address] [place] [address] PCP - General Family Medicine 05/04/22 documented as of this encounter
--- OUTSIDE RECORDS SUMMARY | 2025-08-07 18:12 | XMS_ITS | Clinical Summary ---
Author Organization [employer] Address [address] [facility] [address] [place] [address] Care Team Providers Care Alcoholism Worker Name Role Phone Pat Juan [facility] Primary Care Provider [phone] Allergies Active Allergy Reactions Criticality Noted Date Comments Morphine Rash Low 03/24/2011 Other reaction(s): Rash Medications * This document contains information received from the source organization and may not represent a complete record from that organization. glucose blood (SentrixTouch Ultra) test strip USE 1 STRIP by [...] 1 Active Blood Glucose Monitoring Suppl (FreeStyle Fenwick Lite) w/Device kitIndications:Pr ediabetes,Hypogly cemia Use to [...] idiopathic constipation 05/05/2023 Overview (05/05/2023): Followed by [facility] Linzess Numbness and tingling in left [...] reflux disease 06/02/2013 Overview (10/10/2024): Followed by [facility] Negative EGD 2021 Pantoprazole Pt seen [...] oxygen 2L PRN albuterol Followed by pulmonology [facility] Assessment & Plan (02/03/2025 4:57 PM EDT): Now stable continue with same interventions Assessment & Plan (10/30/2024 10:58 AM EST): Mild exacerbation due to Covid infection. Increase Symbicort to Que 6 hours prn SOB/cough. FU with [employer]. Assessment & Plan (08/18/2024 11:43 AM EST): [...] support system PLAN: 1. Follow up with [facility]: Recommended for follow-up: 07/31 @ 10am 2. Patient goal is to continue controlling symptoms. 3. Behavioral Recommendations a. F/u in 2 weeks. b. Continue use of coping skills Hyperkalemia 02/20/2018 10/24/2022 Encounters Date Type Department Care Team Description 08/06/2025 Telephone [facility] [address] [place] [address] [facility] 08/04/2025 Telephone [facility] [address] [place] [phone] Rochelle Horn RN NTTS f/up 08/03/2025 Orders Only GENERIC EXTERNAL DATA DEPARTMENT Provider, Generic External Data 07/31/2025 Refill [facility] [address] [place] [address] [facility] Depressive disorder 07/27/2025 Refill [facility] [address] [place] [address] [facility] 07/13/2025 Refill [facility] [address] [place] [phone] [facility] Chronic nonintractable headache, unspecified headache type; Primary hypertension 07/08/2025 Refill [facility] [address] [place] [address] Olivia Ramirez MD Depressive disorder 07/03/2025 Results Follow-Up [facility] [address] [place] [address] [facility] POCT Glucose, POCT Hgb A1c, Comprehensive Metabolic Panel, Additional followed-up results: 3 07/01/2025 Telephone [facility] [place] [place] [address] Ewing, Pat [facility] Care Coordination 06/29/2025 10:30 AM EDT Office Visit [facility] [place] [address] Pat Juan [facility] Essential hypertension (Primary Dx); Type 2 diabetes mellitus without complication, without long-term current use of insulin (HCC); Encounter for immunization; Depressive disorder 06/29/2025 Travel 06/19/2025 Patient Outreach [facility] [address] [place] [address] Pat Juan [facility] Pre-visit Planning (SDOH screening completed on 03/18/2025) 06/15/2025 Refill [facility] [place] [address] Lori Werner MD Muscle spasm 06/13/2025 Orders Only [facility] External Provider, [facility] 06/05/2025 Refill [facility] [place] [address] Pat Juan [facility] Depressive disorder 05/29/2025 Refill [facility] [address] [facility] [place] [address] Lori Werner MD 05/18/2025 Refill [facility] [address] [facility] [place] [address] Olivia Ramirez MD Muscle spasm 05/13/2025 10:30 AM EDT Clinical Support [facility] [place] [address] Rochelle Horn, JACE Primary hypertension 05/13/2025 Refill [facility] [place] [address] [facility] Depressive disorder 05/13/2025 Telephone [facility] [place] [address] Rochelle Horn, RN Blood Pressure Check 05/13/2025 Travel 05/11/2025 Refill [facility] [address] [place] [address] Lori Werner MD Prediabetes; Hypoglycemia from Last [...] 06/29/2025 10:50 AM EDT Plan of Treatment Upcoming Encounters Date Type Department Care Team (Late st Contact Info) Description 08/10/2025 11:30 AM EST Office Visit [facility] [address] [place] [address] DrakePat FNP [address] [place] [address] 09/30/2025 10:00 AM EST Office Visit [facility] [address] [place] [address] Ewing, Pat, [facility] [address] [place] [address] Health Maintenance Due Date Last Done Comments [...] Procedure Name Priority Date/Time Associated Diagnosis Comments XR DEXA APPENDICULAR SKELETON Routine 08/07/2025 12:30 PM EST XR ACUTE ABDOMEN SERIES Routine 08/03/2025 11:38 PM EST HIGH SENSITIVITY TROPONIN I Routine 08/03/2025 8:23 [...] Recently Relevant to Health Maintenance Results * XR DEXA APPENDICULAR SKELETON (08/07/2025 12:30 PM EST) Anatomical Region Laterality Modality Abdomen Radiographic Nohemi ging 08/07/2025 12:3 0 PM EST Narrative 08/07/2025 4:42 PM EST [facility] [address] [place] [address] Mammography Report Signed Patient: Hedy Davis MR#: [id number] 89 : 1950 Acct:[id number] Age/Sex: 74 / F ADM Date: 08/07/25 Loc: HO.MAMMO Attending Dr: Pedro Luis Molina MD Ordering Physician: Pedro Luis Molina MD Results: Date of Service: 08/07/25 Follow Up: Procedure(s): XR DEXA appendicular skeleton Accession Number(s): [id number] cc: Pedro Luis Molina MD; [facility] Reason For Exam: M81.0 - Age-related osteoporosis without current pathological fracture EXAMINATION: DXA BONE DENSITY EXTREMITY HISTORY: M81.0 - Age-related osteoporosis without current pathological fracture TECHNIQUE: Digium Dual energy absorptiometry (DEXA) of the lumbar spine, total left hip, and femoral neck was performed. COMPARISON: Comparison is made with the prior examination , most recent dated April 2023. FINDINGS: The bone mineral density of the lumbar spine (L1-L4) is 0.816 g/cm2, corresponding to a T-score of -3.0, and a Z-score of -1.2. This is indicative of osteoporosis. Prior bone mineral density (L1-L3) was 0.660 g/sq cm. Comparison can't be made due to different levels. The bone mineral density of the left total hip is 0.718 g/cm2, corresponding to a T-score of -2.3, and a Z-score of -0.4. This is indicative of osteopenia. This represents a BMD change of 3.3% compared to the prior exam. The bone mineral density of the left femoral neck is 0.675 g/cm2, corresponding to a T-score of -2.6, and a Z-score of -0.6. This is indicative of osteoporosis. This represents a BMD change of 3.1% compared to the prior exam. The bone mineral density of the left forearm is 0.600 g/cm2, corresponding to a T-score of -3.1, and a Z-score of -0.7. This is indicative of osteoporosis. This represents a BMD change of 0.7% compared to the prior exam. MM/XR DEXA appendicular skeleton IMPRESSION: Based on bone mineral density, and according to World Health Organization (WHO) criteria, the diagnosis is consistent with osteoporosis based on lowest T score of -3.1 in the left forearm. No appreciable change compared to most recent previous exam April 2023. Treatment Recommendations: NOF guidelines recommend consideration for treatment in postmenopausal women and men age 50 and older presenting with the following: -A hip or vertebral (clinical or morphometric) fracture. -T-score less than or equal to -2.5 at the femoral neck or spine after appropriate evaluation to exclude secondary causes. -Low bone mass at the hip or spine and a 10-year fracture probability by FRAX of greater than or equal to 3% for hip fracture or greater than or equal to 20% for major osteoporotic fracture based on the [place] adapted WHO algorithm. Other Recommendations: All treatment decisions require clinical judgment and consideration of individual patient factors, including patient preferences, comorbidities, previous drug use, risk factors not captured in the FRAX model (e.g. frailty, falls, vitamin D deficiency, increased bone turnover, interval significant decline in bone density) and possible under or overestimation of fracture risk by FRAX. Additional medical evaluation for secondary cause of low bone mineral density may be appropriate. FUTURE SCAN RECOMMENDATION: People with diagnosed cases of osteoporosis or at high risk for fracture should have regular bone mineral density tests. For patients eligible for Medicare, routine testing is allowed once every 2 years. The testing frequency can be increased to one year for patients who have rapidly progressing disease, those who are receiving or discontinuing medical therapy to restore bone mass, or have additional risk factors. Statistically, 68% of repeat scans fall within 1 SD (+/- 0.010 g/cm2 for AP spine L1-L4) and 1 SD (+/- 0.012 g/cm2 for femur total) FRAX is a trademark of the [employer] for Metabolic Bone Disease, a World Health Organization (WHO) Collaborating Center. Electronically signed by: Belén Hui MD 08/07/2025 04:39 PM [facility] Dictated By: Belén Hui MD Signed By: <Electronically signed by Belén Hui MD in OV> 08/07/25 1639 DD/ 1230 TD/TT: 08/07/25 1245 Relocation Counselor: TORIE Procedure Note Donotuseinterpreter, Image - 08/07/2025 [facility] [address] [place] [address] Mammography Report Signed Patient: Martín Davis#: [id number] [birth year] : 9Acct:[id number] Age/Sex: 74 / FADM Date: 08/07/25 Loc: HO.MAMMO Attending Dr: Pedro Luis Molina MD Ordering Physician: Pedro Luis Molina MDResults: Date of Service: 08/07/25Follow Up: Procedure(s): XR DEXA appendicular skeleton Accession Number(s): [id number] cc: Pedro Luis Molina MD; [facility] Reason For Exam: M81.0 - Age-related osteoporosis without currentpathological fracture EXAMINATION: DXA BONE DENSITY EXTREMITY HISTORY: M81.0 - Age-related osteoporosis without current pathological fracture TECHNIQUE: Digium Dual energy absorptiometry (DEXA) of the lumbar spine, total left hip, and femoral neck was performed. COMPARISON: Comparison is made with the prior examination , most recent dated April 2023. FINDINGS: The bone mineral density of the lumbar spine (L1-L4) is 0.816 g/cm2, corresponding to a T-score of -3.0, and a Z-score of -1.2. This is indicative of osteoporosis. Prior bone mineral density (L1-L3) was 0.660 g/sq cm. Comparison can't be made due to different levels. The bone mineral density of the left total hip is 0.718 g/cm2, corresponding to a T-score of -2.3, and a Z-score of -0.4. This is indicative of osteopenia. This represents a BMD change of 3.3% compared to the prior exam. The bone mineral density of the left femoral neck is 0.675 g/cm2, corresponding to a T-score of -2.6, and a Z-score of -0.6. This is indicative of osteoporosis. This represents a BMD change of 3.1% compared to the prior exam. The bone mineral density of the left forearm is 0.600 g/cm2, corresponding to a T-score of -3.1, and a Z-score of -0.7. This is indicative of osteoporosis. This represents a BMD change of 0.7% compared to the prior exam. MM/XR DEXA appendicular skeleton IMPRESSION: Based on bone mineral density, and according to World Health Organization (WHO) criteria, the diagnosis is consistent with osteoporosis based on lowest T score of -3.1 in the left forearm. No appreciable change compared to most recent previous exam April 2023. Treatment Recommendations: NOF guidelines recommend consideration for treatment in postmenopausal women and men age 50 and older presenting with the following: -A hip or vertebral (clinical or morphometric) fracture. -T-score less than or equal to -2.5 at the femoral neck or spine after appropriate evaluation to exclude secondary causes. -Low bone mass at the hip or spine and a 10-year fracture probability by FRAX of greater than or equal to 3% for hip fracture or greater than or equal to 20% for major osteoporotic fracture based on the [place] adapted WHO algorithm. Other Recommendations: All treatment decisions require clinical judgment and consideration of individual patient factors, including patient preferences, comorbidities, previous drug use, risk factors not captured in the FRAX model (e.g. frailty, falls, vitamin D deficiency, increased bone turnover, interval significant decline in bone density) and possible under or overestimation of fracture risk by FRAX. Additional medical evaluation for secondary cause of low bone mineral density may be appropriate. FUTURE SCAN RECOMMENDATION: People with diagnosed cases of osteoporosis or at high risk for fracture should have regular bone mineral density tests. For patients eligible for Medicare, routine testing is allowed once every 2 years. The testing frequency can be increased to one year for patients who have rapidly progressing disease, those who are receiving or discontinuing medical therapy to restore bone mass, or have additional risk factors. Statistically, 68% of repeat scans fall within 1 SD (+/- 0.010 g/cm2 for AP spine L1-L4) and 1 SD (+/- 0.012 g/cm2 for femur total) FRAX is a trademark of the [employer] for Metabolic Bone Disease, a World Health Organization (WHO) Collaborating Center. Electronically signed by: Belén Hui MD 08/07/2025 04:39 PM EST Dictated By: Belén Hui MD Signed By: <Electronically signed by Belén Hui MD in OV> 08/07/25 1639 DD/ 1230 TD/TT: 08/07/25 1245 Relocation Counselor: TORIE [facility] External Provider IMG XR PROCEDURES Final Result * XR ACUTE ABDOMEN SERIES (08/03/2025 11:38 PM EST) Anatomical Region Laterality Modality Abdomen Radiographic Nohemi ging 08/03/2025 11:3 8 PM EST Narrative 08/03/2025 11:39 PM EST [address] [address] XRay Report Signed Patient: Hedy Davis MR#: [id number] [birth year] : 1950 Acct:[id number] Age/Sex: 74 / F ADM Date: 08/03/25 Loc: HO.ED Attending Dr: Ordering Physician: Shi Mak DO Date of Service: 08/03/25 Procedure(s): XR acute abdomen series Accession Number(s): [id number] cc: Shi Mak DO; [facility] Reason for Exam: abd pain, vomiting CLINICAL HISTORY: abd pain, vomiting 2 view abdomen, AP chest Comparison: None provided Findings: Mild right basilar atelectasis/pneumonitis. Cardiac silhouette and mediastinal contours are within upper limits of normal for technique. No small bowel dilatation. No free intraperitoneal air by radiographs. Severe stool burden present, including the cecum. Vascular calcifications include multiple phleboliths in the pelvis. Degenerative changes include imaged shoulders, AC joints, and hips. S shaped curvature of the imaged thoracic spine. IMPRESSION: 1. Mild right basilar atelectasis/pneumonitis. 2. No small bowel obstruction. 3. Severe stool burden This document has been electronically signed by: Peyman Dewey MD on 08/03/2025 23:38:05 Dictated By: Peyman Dewey MD Signed By: <Electronically signed by Peyman Dewey MD in OV> 08/03/252337 DD/ 37 TD/TT: 08/03/252337 Relocation Counselor: Procedure Note Donotuseinterpreter, Image - 08/03/[address] [address] XRay Report Signed Patient: Hedy DavisMR#: [id number] [birth year] : 1950cct:[id number] Age/Sex: 74 / FADM Date: 08/03/25 Loc: HO.ED Attending Dr: Ordering Physician: Shi Mak DO Date of Service: 08/03/25 Procedure(s): XR acute abdomen series Accession Number(s): [id number] cc: Shi Mak ; [facility] Reason for Exam: abd pain, vomiting CLINICAL HISTORY: abd pain, vomiting 2 view abdomen, AP chest Comparison: None provided Findings: Mild right basilar atelectasis/pneumonitis. Cardiac silhouette and mediastinal contours are within upper limits of normal for technique. No small bowel dilatation. No free intraperitoneal air by radiographs. Severe stool burden present, including the cecum. Vascular calcifications include multiple phleboliths in the pelvis. Degenerative changes include imaged shoulders, AC joints, and hips. S shaped curvature of the imaged thoracic spine. IMPRESSION: 1. Mild right basilar atelectasis/pneumonitis. 2. No small bowel obstruction. 3. Severe stool burden This document has been electronically signed by: Peyman Dewey MD on 08/03/2025 23:38:05 Dictated By: Peyman Dewey MD Signed By: <Electronically signed by Peyman Dewey MD in OV> 08/03/252337 DD/ 37 TD/TT: 08/03/252337 Relocation Counselor: [facility] External Provider IMG XR PROCEDURES Edited Result - Final * High Sensitivity Troponin I (08/03/2025 8:23 PM EST) TROPONIN I HIGH SENSITIVITY <2.7 <3.5 - 17.0 ng/L [facility] Comment:The [place] high sens itivity Troponin-I results should beused in conjunction with other diagnostic information suchas ECG, clinical observations and information, and patientsymptoms to aid in the diagnosis of GA. 08/03/2025 8:23 PM EST 08/03/2025 8:26 PM EST Generic External Data Provider LAB BLOOD ORDERAB LES Final Result [facility] [address] [place] [phone] * SARS-CoV-2 RNA, Influenza A/B, and RSV RNA, Ql NAAT (08/03/2025 8:23 PM EST) [facility] Influenza A PCR NEGATIVE Negative [facility] Influenza B PCR NEGATIVE Negative [facility] Resp Syncy Virus RNA Qual PCR NEGATIVE Negative [facility] SARS COV2 PCR NEGATIVE Negative [facility] Comment:All test results mus t [...] use by authorized laboratories.Testing performed on the [employer] GeneXpert utilizingreal-time RT-PCR.All SARS CoV2 and positive influenza A/B results arereported to [facility]. 08/03/2025 8:23 PM EST 08/03/2025 8:26 PM EST us Generic External Data Provider LAB MICROBIOLOGY - GENERAL ORDERABLES Final Result [facility] [address] [place] [phone] * (ABNORMAL) CBC auto differential (08/03/2025 8:23 PM EST) Only the most recent of2 resultswithin the time period is included. [facility] White Blood Count 7.2 4.8 - 10.8 X10*3/uL [facility] Red Blood Count 4.17(L) 4.20 - 5.50 X10*6/uL [facility] Hemoglobin 13.2 12.0 - 16.0 g/dl [facility] Hematocrit 40.2 37.0 - 47.0 % [facility] Mean Corpuscular Volume 96.4 80.0 - 98.0 fL [facility] Mean Corpuscular Hemoglobin 31.7 27.0 - 33.0 pg [facility] Mean Corpuscular HGB Conc 32.8 31.0 - 35.0 g/dl [facility] Red Cell Distribution Width 14.1 11.0 - 16.0 % [facility] Platelet Count 253 160 - 400 X10*3/uL [facility] Mean Platelet Volume 10.6 9.4 - 12.3 fL [facility] Neutrophils Percent Auto 70.2 45 - 73 % [facility] Imm Gran Pct Auto 0.1 0.0 - 0.4 % [facility] Lymphocytes Percent Auto 21.0 20 - 40 % [facility] Monocytes Percent Auto 6.2 2 - 11 % [facility] Eosinophils Percent Auto 1.9 0 - 4 % [facility] Basophils Percent Auto 0.6 0 - 2 % [facility] NRBC Pct Auto 0.0 0.0 - 0.2 /100WBC [facility] Neutrophils Absolute Auto 5.1 2.0 - 8.3 x10*3/uL [facility] Imm Gran Abs Auto 0.01 0.00 - 0.03 X10*3/uL [facility] Lymphocytes Absolute Auto 1.5 1.2 - 4.9 X10*3/uL [facility] Monocytes Absolute Auto 0.5 0.1 - 1.2 X10*3/uL [facility] Eosinophils Absolute Auto 0.1 0.0 - 0.4 X10*3/uL [facility] Basophils Absolute Auto 0.0 0.0 - 0.2 X10*3/uL [facility] NRBC Abs Auto 0.000 0.0 - 0.012 X10*3/uL [facility] 08/03/2025 8:23 PM EST 08/03/2025 8:26 PM EST us Generic External Data Provider LAB BLOOD ORDERAB LES Final Result [facility] [address] [place] [phone] * Magnesium (08/03/2025 8:23 PM EST) Magnesium 2.2 1.6 - 2.6 mg/dL [facility] 08/03/2025 8:23 PM EST 08/03/2025 8:26 PM EST us Generic External Data Provider LAB BLOOD ORDERAB LES Final Result [facility] [address] [place] [phone] * (ABNORMAL) Comprehensive Metabolic Panel (08/03/2025 8:23 PM EST) Only the most recent of2 resultswithin the time period is included. Sodium 146(H) 135 - 145 mmol/L [facility] Potassium 4.4 3.3 - 5.1 mmol/L [facility] Chloride 107 96 - 108 mmol/L [facility] Carbon Dioxide 27 22 - 29 mmol/L [facility] Anion Gap 16 12 - 20 [facility] Urea Nitrogen (BUN) 18(H) 9 - 16 mg/dL [facility] Creatinine, Serum 0.93 0.5 - 1.4 mg/dL [facility] Creatinine Clr Calc Pharmacy 46.2 [facility] Comment:Provided height and weight: 157.48 cm,67.3 kg.eGFR (calculated from the MDRD study equation) and eCrCl(calculated from the Cockcroft-Gault equation) are based ondifferent parameters and may not yield comparable results.If eCrCl result is absurd, please check patient'sheight/weight. Estimated Glomerular Filt Rate 59 [facility] Comment:Chronic Kidney Disea se: Estimated GFR < 60 mL/min/1.98h6Gslqal Kidney Disease: Estimated GFR < 15 mL/min/1.73m2 Glucose 110 60 - 115 mg/dL [facility] Calcium 9.6 8.4 - 10.2 mg/dL [facility] Bilirubin, Total 0.7 0.0 - 1.0 mg/dL [facility] Aspartate Amino Transferase 34(H) 5 - 31 U/L [facility] Alanine Aminotransferase 38(H) 0 - 31 U/L [facility] Total Protein 7.9 6.5 - 8.0 g/dL [facility] Albumin Level 4.7 3.5 - 5.0 g/dL [facility] Alkaline Phosphatase 78 39 - 117 U/L [facility] 08/03/2025 8:23 PM EST 08/03/2025 8:26 PM EST Generic External Data Provider LAB BLOOD ORDERAB LES Final Result Performing Organization Address [facility]/ZIP Co de Phone Number [facility] [address] [place] [phone] * Albumin, Random Urine W/Creatinine (06/30/2025 9:12 AM EDT) Creatinine, Urine 187.30 mg/dL [facility] Microalbumin Urine 8.0 mg/L [facility] Microalbum Creatinine Ratio Ur 4.2 <30 ug/mg cr [facility] Comment:Albumin/Creatinine R atio Reference Ranges: Normal: < 30 ug/mg creatinine Microalbuminuria: 30 - 300 ug/mg creatinineClinical Albuminuria: > 300 ug/mg creatinine Urine 06/30/2025 9:12 AM EDT 06/30/2025 11:13 AM EDT [facility] LAB URINE ORDERABLES Final Re sult Performing Organization Address City/[facility]/ZIP Co de Phone Number [facility] [address] [place] [address] [phone] * Lipid Panel, Standard (06/30/2025 9:12 AM EDT) Triglycerides 116 <150 mg/dL [facility] Comment:Desirable Triglyceri de: less than 150 mg/dLBorderline High Triglyceride 150-199 mg/dLHigh Triglyceride: 200-499 mg/dLVery High Triglyceride: greater than or equal to 5OO mg/dL Cholesterol 141 <200 mg/dL [facility] Comment:Desirable Cholestero l: less than 200 mg/dLBorderline High Cholesterol: 200-239 mg/dLHigh Cholesterol: greater than 239 mg/dL LDL Cholesterol Calculated 70 <100 mg/dL [facility] Comment:Desirable LDL: less than 100 mg/dLNear Optimal/Above Optimal LDL: 110- 129 mg/dLBorderline High LDL: 130-159 mg/dLHigh LDL: 160-189 mg/dLVery High LDL: greater than or equal to 190 mg/dL HDL Cholesterol 48 >40 mg/dL [facility] Comment:Desirable HDL: great er than 40 mg/dL Note: This HDL assay may give artificially low results in patients with liver disease. Blood Venous blood specimen / Unknown 06/30/2025 9:12 AM EDT 06/30/2025 11:15 AM EDT [facility] LAB BLOOD ORDERABLES Final Re sult [facility] [address] [place] [phone] * POCT Hgb A1c (06/29/2025 10:52 AM EDT) Hemoglobin A1C 5.6 4.0 - 5.7 % QC Media Lot # [id number] Lot# Expiration Date Blood 06/29/2025 10:5 2 AM EDT [facility] POINT OF CARE TEST ENTER/EDIT ORDERABLES Final Result * POCT Glucose (06/29/2025 10:52 AM EDT) Glucose Blood, POC 127 60 - 200 mg/dL QC Media Lot # [id number] Lot# Expiration Date Blood Capillary blood specimen / Unknown 06/29/2025 10:52 AM EDT [facility] POINT OF CARE TEST ENTER/EDIT ORDERABLES Final Result * MR Knee w/o Contrast Right (06/15/2025 8:55 AM EDT) Anatomical Region Laterality Modality Magnetic Resonan ce 06/15/2025 8:55 AM EDT Narrative 06/15/2025 8:56 AM EDT [place] [address] Magnetic Resonance Report Signed Patient: Hedy Davis MR#: [id number] 89 : 1950 Acct:[id number] Age/Sex: 74 / F ADM Date: 06/13/25 Loc: HO.MRI Attending Dr: Terry Hernandes MD Ordering Physician: Terry Hernandes MD Date of Service: 06/13/25 Procedure(s): MR knee RT wo con Accession Number(s): [id number] cc: Terry Hernandes MD; [facility] Reason for Exam: S83.241A - Other [...] in OV> 06/15/2556 DD/ 4 TD/TT: 06/15/25854 Relocation Counselor: Procedure Note Donotuseinterpreter, Image - 06/15/2025 [place] [address] Magnetic Resonance Report Signed Patient: Martín Davis#: [id number] 89 : 9Acct:[id number] Age/Sex: 74 / FADM Date: 06/13/25 Loc: HO.MRI Attending Dr: Terry eHrnandes MD Ordering Physician: Terry Hernandes MD Date of Service: 06/13/25 Procedure(s): MR knee RT wo con Accession Number(s): [id number] cc: Terry Hernandes MD; [facility] Reason for Exam: [id number] - Other [...] in OV> 06/15/25 0856 DD/ TD/TT: 06/15/25854 Relocation Counselor: [facility] External Provider IMG MRI PROCEDURES Edited Result - Final * Hepatitis C Antibody with Reflex to HCV, RNA, Quantitative, Real-Time PCR (01/31/2023 4:01 PM EDT) Hepatitis C Antibody NON-REACT HERRERA NON-REACT HERRERA [employer] Index 0.09 <1.00 [employer] Comment: HCV antibody was non-reactive. There is no laboratory evidence of HCV infection. In most cases, no further action is required. However, if recent HCV exposure is suspected, a test for HCV RNA (test code 06077) is suggested. For additional information please refer to http://education.FusionOps/faq/PAN57r6 (This link is being provided for informational/ educational purposes only.) Blood Venous blood specimen / Unknown 01/31/2023 4:01 PM EDT 01/31/2023 4:01 PM EDT [facility] REGISTRAR NURSES' REGISTRY LAB BLOOD ORDERABLES Final Re sult [facility] [address], [place] [address] [employer] [address] [place] [address] * Hm Colonoscopy (08/24/2022) Pathologist [facility] Colonoscopy Normal Normal Comment:[facility] - negative 08/24/2022 Historical Provider HEALTH MAINTENANCE Final Result from Last 3 Months or Most Recently Relevant to Health Maintenance Insurance [employer] MEDICARE REPLACEMENT HSN PARTIAL Care Teams Alcoholism Worker Relationship Specialty Start Date End Date Pat Juan FNP [address] [place] [address] PCP - General Family Medicine 05/04/22
--- OUTSIDE RECORDS SUMMARY | 2025-08-07 18:12 | XMS_ITS | Encounter Summary ---
Author Organization [employer] Address [address] [facility] 7t [place] [address] Care Team Providers Care Field Collector Name Role Phone [facility] Primary Care Provider [phone] Reason for Visit * Reason Comments Med Refill Encounter Details Date Type Department Care Team ([facility] st Contact Info) Description 10/15/2024 Refill [facility] MEDICINE [address] [place], [place] [phone] [facility] 230 [place], [place] [phone] Depressive disorder Social History Tobacco Use Types [...] Description 08/10/2025 11:30 AM EST Office Visit [address] [address] [place] [address] [address] 09/30/2025 10:00 AM EST Office Visit [address] [address] [place] [address] [address] documented as of this encounter Visit Diagnoses Diagnosis Depressive disorder Depressive disorder, not elsewhere classified documented in this encounter Additional Health Concerns Assessment Noted Time PHQ-9 Depression Total Score: 0 03/19/20 24 8:51 AM EDT documented as of this encounter Care Teams Field Collector Relationship Specialty Start Date End Date Pat Juan [facility] [address] [place] [address] PCP - General Family Medicine 05/04/22 documented as of this encounter
--- OUTSIDE RECORDS SUMMARY | 2025-08-07 18:13 | XMS_ITS | Encounter Summary ---
Author Organization [employer] Address [address] [facility] 7t [place] [address] Care Team Providers Care Floor Scrubber Name Role Phone Pat Juan MANAGER RESOURCE Primary Care Provider [phone] Reason for Visit * Reason Onset Date Comments NTTS f/up 08/04/2025 Encounter Details Date Type Department Care Team ([facility] st Contact Info) Description 08/04/2025 Telephone [facility] [address] [place], [place] [phone] Rochelle Horn RN [address] [place], [place] [phone] NTTS f/up Social History Tobacco Use Types Packs/Day Years [...] Telephone Encounter - Rochelle Horn RN - 08/04/2025 3:56 PM EST NTTS report received. Daughter called to report high BP. Was unable to be contacted back. Noted pt.Presented to ED for epigastric pain N/V/D x 1 day. Diagnosis gastroenteritis. Prescribed zofran q. 8 hours prn and bentyl tid TC placed to pt. For status check. Pt. Handed phone to daughter. Daughter reports pt. Is better today, still mildly nauseas with use of zofran so today has only had coffee, water, and crackers but able to keep it down. BP also now normalized at 139/80. Daughter requesting f/up appointment with PCP and agrees to appointment 08/10 at 11:30am. Will callIn the meantime for any worsening or recurrent symptoms documented in this encounter Plan of Treatment Upcoming Encounters Date Type Department Care Team (Late st Contact Info) Description 08/10/2025 11:30 AM EST Office Visit [facility] [address] [place] [address] [place] [facility] 230 [place] [address] 09/30/2025 10:00 AM EST Office Visit [facility] [address] [place] [address] Pat Juan FNP 230 [place] [address] documented as of this encounter Visit Diagnoses Not on filedocumented in this encounter Additional Health Concerns Assessment Noted Time PHQ-9 Depression Total Score: 0 03/25/20 25 11:20 AM EDT documented as of this encounter Care Teams Floor Scrubber Relationship Specialty Start Date End Date Pat Juan FNP [address] [place] [address] PCP - General Family Medicine 05/04/22 documented as of this encounter
--- OUTSIDE RECORDS SUMMARY | 2025-08-07 18:13 | XMS_ITS | Encounter Summary ---
Author Organization [employer] Address [address] [facility] 7t [place] [address] Care Team Providers Care Cellophane Tester Name Role Phone Drake Pat MACHINE BOBBIN WINDER Primary Care Provider [phone] Encounter Details Date Type Department Care Team [...] Description 08/10/2025 11:30 AM EST Office Visit [address] [address] 09/30/2025 10:00 AM EST Office Visit [address] [address] documented as of this encounter Procedures Procedure [...] EST documented in this encounter Results * XR DEXA APPENDICULAR SKELETON (08/07/2025 12:30 PM EST) Anatomical Region Laterality Modality Abdomen Radiographic Nohemi ging 08/07/2025 12:3 0 PM EST Narrative 08/07/2025 4:42 PM EST [facility] [address] [place] [address] Mammography Report Signed Patient: Hedy Davis MR#: [id number] [birth year] : 1950 Acct:[id number] Age/Sex: 74 / F ADM Date: 08/07/25 Loc: PIERREO Attending Dr: Pedro Luis Molina MD Ordering Physician: Pedro Luis Molina MD Results: Date of Service: 08/07/25 Follow Up: Procedure(s): XR DEXA appendicular skeleton Accession Number(s): [id number] cc: Pedro Luis Molina MD; [facility] Reason For Exam: M81.0 - Age-related osteoporosis without current pathological fracture EXAMINATION: DXA BONE DENSITY EXTREMITY HISTORY: M81.0 - Age-related osteoporosis without current pathological fracture TECHNIQUE: [employer] Dual energy absorptiometry (DEXA) of the lumbar [...] of the [employer]'s Grant for Metabolic Bone Disease, a World Health Organization (WHO) Collaborating Center. Electronically signed by: Belén Hui MD 08/07/2025 04:39 PM EST Dictated By: Belén Hui MD Signed By: <Electronically signed by Belén Hui MD in OV> 08/07/25 1639 DD/ 1230 TD/TT: 08/07/25 1245 Laundry Technician: TORIE Procedure Note Donotuseinterpreter, Image - 08/07/2025 [facility] [address] [place] [address] Mammography Report Signed Patient: Martín Davis#: [id number] [birth year] : 9Acct:[id number] Age/Sex: 74 / FADM Date: 08/07/25 Loc: HO.MAMMO Attending Dr: Pedro Luis Molina MD Ordering Physician: Pedro Luis Molina MDResults: Date of Service: 08/07/25Follow Up: Procedure(s): XR DEXA appendicular skeleton Accession Number(s): [id number] cc: Pedro Luis Molina MD; [facility] Reason For Exam: M81.0 - Age-related osteoporosis without currentpathological fracture EXAMINATION: DXA BONE DENSITY EXTREMITY HISTORY: M81.0 - Age-related osteoporosis without current pathological fracture TECHNIQUE: [employer] Dual energy absorptiometry (DEXA) of the lumbar [...] of the [employer]'s Grant for Metabolic Bone Disease, a World Health Organization (WHO) Collaborating Center. Electronically signed by: Belén Hui MD 08/07/2025 04:39 PM EST RP Dictated By: Belén Hui MD Signed By: <Electronically signed by Belén Hui MD in OV> 08/07/25 1639 DD/ 1230 TD/TT: 08/07/25 1245 Laundry Technician: TORIE [facility] External Provider IMG XR PROCEDURES Final Result * XR ACUTE ABDOMEN SERIES (08/03/2025 11:38 PM EST) Anatomical Region Laterality Modality Abdomen Radiographic Nohemi ging 08/03/2025 11:3 8 PM EST Narrative 08/03/2025 11:39 PM EST [place] [address] XRay Report Signed Patient: Hedy Davis MR#: [id number] [birth year] : 1950 Acct:[id number] Age/Sex: 74 / F ADM Date: 08/03/25 Loc: HO.ED Attending Dr: Ordering Physician: Shi Mak DO Date of Service: 08/03/25 Procedure(s): XR acute abdomen series Accession Number(s): [id number] cc: Shi Mak DO; [facility] Reason for Exam: abd pain, vomiting [...] in OV> 08/03/252337 DD/ 37 TD/TT: 08/03/252337 Laundry Technician: Procedure Note Donotuseinterpreter, Image - 08/03/2025 [place] [address] XRay Report Signed Patient: Martín Davis#: [id number] [birth year] : 9Acct:[id number] Age/Sex: 74 / FADM Date: 08/03/25 Loc: HO.ED Attending Dr: Ordering Physician: Shi Mak DO Date of Service: 08/03/25 Procedure(s): XR acute abdomen series Accession Number(s): [id number] cc: Shi Mak DO; [facility] Reason for Exam: abd pain, vomiting [...] in OV> 08/03/252337 DD/ 37 TD/TT: 08/03/252337 Laundry Technician: [facility] External Provider IMG XR PROCEDURES Edited Result - Final * SARS-CoV-2 RNA, Influenza A/B, and RSV RNA, Ql NAAT (08/03/2025 8:23 PM EST) Pathologist [facility] Influenza A PCR NEGATIVE Negative [facility] Influenza B PCR NEGATIVE Negative [facility] Resp Syncy Virus RNA Qual PCR NEGATIVE Negative [facility] SARS COV2 PCR NEGATIVE Negative [facility] Comment:All test results mus t [...] use by authorized laboratories.Testing performed on the [email or web address] GeneXpert utilizingreal-time RT-PCR.All SARS CoV2 and positive influenza A/B results arereported to [facility]. 08/03/2025 8:23 PM EST 08/03/2025 8:26 PM EST Generic External Data Provider LAB MICROBIOLOGY - GENERAL ORDERABLES Final Result [facility] [address] [place] [address] [phone] * High Sensitivity Troponin I (08/03/2025 8:23 PM EST) Pathologist [facility] TROPONIN I HIGH SENSITIVITY <2.7 <3.5 - 17.0 ng/L [facility] Comment:The [employer] high sens itivity Troponin-I results should beused in conjunction with other diagnostic information suchas ECG, clinical observations and information, and patientsymptoms to aid in the diagnosis of PR. 08/03/2025 8:23 PM EST 08/03/2025 8:26 PM EST us Generic External Data Provider LAB BLOOD ORDERAB LES Final Result Performing Organization Address City/[facility]/ZIP Co de Phone Number [facility] [address] [place] [phone] * Magnesium (08/03/2025 8:23 PM EST) Magnesium 2.2 1.6 - 2.6 mg/dL [facility] 08/03/2025 8:23 PM EST 08/03/2025 8:26 PM EST Generic External Data Provider LAB BLOOD ORDERAB LES Final Result Performing Organization Address [facility] de Phone Number [facility] [address] [place] [address] [phone] * (ABNORMAL) Comprehensive Metabolic Panel (08/03/2025 8:23 PM EST) Sodium 146(H) 135 - 145 mmol/L [facility] Potassium 4.4 3.3 - 5.1 mmol/L [facility] Chloride 107 96 - 108 mmol/L [facility] Carbon Dioxide 27 22 - 29 mmol/L [facility] Anion Gap 16 12 - 20 [facility] Urea Nitrogen (BUN) 18(H) 9 - 16 mg/dL [facility] Creatinine, Serum 0.93 0.5 - 1.4 mg/dL [facility] Creatinine Clr Calc Pharmacy 46.2 [facility] Comment:Provided height and weight: 157.48 cm,67.3 kg.eGFR (calculated from the MDRD study equation) and eCrCl(calculated from the Cockcroft-Gault equation) are based ondifferent parameters and may not yield comparable results.If eCrCl result is absurd, please check patient'sheight/weight. Estimated Glomerular Filt Rate 59 [facility] Comment:Chronic Kidney Disea se: Estimated GFR < 60 mL/min/1.79p9Dgwnpu Kidney Disease: Estimated GFR < 15 mL/min/1.73m2 Glucose 110 60 - 115 mg/dL [facility] Calcium 9.6 8.4 - 10.2 mg/dL [facility] Bilirubin, Total 0.7 0.0 - 1.0 mg/dL [facility] Aspartate Amino Transferase 34(H) 5 - 31 U/L [facility] Alanine Aminotransferase 38(H) 0 - 31 U/L [facility] Total Protein 7.9 6.5 - 8.0 g/dL [facility] Albumin Level 4.7 3.5 - 5.0 g/dL [facility] Alkaline Phosphatase 78 39 - 117 U/L [facility] 08/03/2025 8:23 PM EST 08/03/2025 8:26 PM EST us Generic External Data Provider LAB BLOOD ORDERAB LES Final Result [facility] [address] [place] [phone] * (ABNORMAL) CBC auto differential (08/03/2025 8:23 PM EST) White Blood Count 7.2 4.8 - 10.8 X10*3/uL [facility] Red Blood Count 4.17(L) 4.20 - 5.50 X10*6/uL [facility] Hemoglobin 13.2 12.0 - 16.0 g/dl [facility] Hematocrit 40.2 37.0 - 47.0 % [facility] Mean Corpuscular Volume 96.4 80.0 - 98.0 fL [facility] Mean Corpuscular Hemoglobin 31.7 27.0 - 33.0 pg [facility] Mean Corpuscular HGB Conc 32.8 31.0 - 35.0 g/dl [facility] Red Cell Distribution Width 14.1 11.0 - 16.0 % [facility] Platelet Count 253 160 - 400 X10*3/uL [facility] Mean Platelet Volume 10.6 9.4 - 12.3 fL [facility] Neutrophils Percent Auto 70.2 45 - 73 % [facility] Imm Gran Pct Auto 0.1 0.0 - 0.4 % [facility] Lymphocytes Percent Auto 21.0 20 - 40 % [facility] Monocytes Percent Auto 6.2 2 - 11 % [facility] Eosinophils Percent Auto 1.9 0 - 4 % [facility] Basophils Percent Auto 0.6 0 - 2 % [facility] NRBC Pct Auto 0.0 0.0 - 0.2 /100WBC [facility] Neutrophils Absolute Auto 5.1 2.0 - 8.3 x10*3/uL [facility] Imm Gran Abs Auto 0.01 0.00 - 0.03 X10*3/uL [facility] Lymphocytes Absolute Auto 1.5 1.2 - 4.9 X10*3/uL [facility] Monocytes Absolute Auto 0.5 0.1 - 1.2 X10*3/uL [facility] Eosinophils Absolute Auto 0.1 0.0 - 0.4 X10*3/uL [facility] Basophils Absolute Auto 0.0 0.0 - 0.2 X10*3/uL [facility] NRBC Abs Auto 0.000 0.0 - 0.012 X10*3/uL [facility] 08/03/2025 8:23 PM EST 08/03/2025 8:26 PM EST us Generic External Data Provider LAB BLOOD ORDERAB LES Final Result [facility] [address] [place] [address] [phone] documented in this encounter Visit Diagnoses Not on filedocumented in this encounter Additional Health Concerns Assessment Noted Time PHQ-9 Depression Total Score: 0 03/25/20 25 11:20 AM EDT documented as of this encounter Care Teams Cellophane Tester Relationship Specialty Start Date End Date Pat Juan FNP [address] [place] [address] PCP - General Family Medicine 05/04/22 documented as of this encounter
--- OUTSIDE RECORDS SUMMARY | 2025-08-07 18:13 | XMS_ITS | Encounter Summary ---
Author Organization [employer] Address [address] [facility] 7t [place] [address] Care Team Providers Care Dry Cell Assembly Supervisor Name Role Phone Victoria [facility] Primary Care Provider [phone] Encounter Details Date Type Department Care Team ([facility] st Contact Info) Description 08/06/2025 Telephone [facility] [address] [place], [place] [phone] Victoria [facility] [address] [place] [address] Social History Tobacco Use Types Packs/Day Years [...] encounter Miscellaneous Notes * Telephone Encounter - Kathya Quintana MA - 08/06/2025 9:25 AM EST Chart Prep Labs: done Images: done Referrals: complete Vaccines due: Covid and RSV Screenings: eye exam and foot exam Overdue care gaps: SBIRT documented in this encounter Plan of Treatment Upcoming Encounters Date Type Department Care Team (Late st Contact Info) Description 08/10/2025 11:30 AM EST Office Visit [address] [address] Victoria [facility] [address] [place] [address] 09/30/2025 10:00 AM EST Office Visit [address] [address] [address] [address] documented as of this encounter Visit Diagnoses Not on filedocumented in this encounter Additional Health Concerns Assessment Noted Time PHQ-9 Depression Total Score: 0 03/25/20 11:20 AM EDT documented as of this encounter Care Teams Dry Cell Assembly Supervisor Relationship Specialty Start Date End Date Drake CARLOS Stewart [address] [place] [address] PCP - General Family Medicine 05/04/22 documented as of this encounter
--- OUTSIDE RECORDS SUMMARY | 2025-08-07 18:13 | XMS_ITS | Encounter Summary ---
Author Organization [facility] Address [address] [place] [address] Care Team Providers Care Rotary Derrick Operator Name Role Phone [facility] Primary Care Provider [phone] Encounter Details Date Type Department Care Team ([facility] st Contact Info) Description 08/04/2025 Telephone Neurosurgery [facility] [address] [address] Saundra Ríos MD [address] [place] [address] Social History Tobacco Use Types Packs/Day Years Used Date Smoking Tobacco: Never Smokeless Tobacco: Never Comments Unknown Sex and Gender Information Value Date Recorded Sex Assigned at Female 07/28/2024 2:33 PM EST Legal Sex Female 8:25 PM EST Gender Identity Female 07/28/2024 2:33 PM EST Sexual Orientation Not on file documented as of this encounter Progress Notes * Saundra Ríos MD - 08/04/2025 5:40 PM EST I spoke to Ms. Novak who states that she feels well. I reviewed the MRI of the brain with and without gadolinium performed at [facility] on 07/21/2025 which shows the right frontal craniotomy defect from resection of meningioma in July 2023. There is no evidence of residual or recurrent tumor, no hemorrhage and no stroke. Will plan on repeating her MRI again in 1 year. documented in this encounter Plan of Treatment Not on file documented as of this encounter Visit Diagnoses Not on filedocumented in this encounter Care Teams Rotary Derrick Operator Relationship Specialty Start Date End Date [place] Pat [address] [phone] PCP - General Family Medicine 07/28/24 documented as of this encounter
--- OUTSIDE RECORDS SUMMARY | 2025-08-07 18:14 | XMS_ITS | Encounter Summary ---
Author Organization [employer] Address [address] [facility] 7t [place] [address] Care Team Providers Care Aircraft Servicer Name Role Phone [facility] Primary Care Provider [phone] Reason for Visit * Reason Comments Med Refill Encounter Details Date Type Department Care Team ([facility] st Contact Info) Description 01/02/2024 Refill [facility] 230 [place], [place] [phone] [facility] 230 [place], [place] [phone] Tingling of both feet; Depressive disorder Social [...] 12/23 8:14 AM EDT Joe Castañeda * How difficult have these problems made it for you to do your work, take care of things at home, or get along with other people? Answer Date of Assessment Author Somewhat difficult 01/04/2024 8:14 AM EDT Joe Castañeda * Over the last 2 weeks, how often have you been bothered by any of the following problems? Question Answer Date of Assessment Author Feeling nervous, anxious, or on edge 1 12/23 8:15 AM EDT Joe Castañeda Not being able to stop or co ntrol worrying 1 01/04/2024 8:15 AM EDT Joe Castañeda Worrying too much about diff erent things 1 01/04/2024 8:15 AM EDT Joe Castañeda Trouble relaxing 0 01/04/2024 8:15 AM EDT Joe Dave Being so restless that it is hard to sit still 1 01/04/2024 8:15 AM FLORIDALMAT Joe Castañeda Becoming easily annoyed or irritable 0 12/23 8:15 AM EDT Joe Castañeda Feeling afraid as if somethi ng awful might happen 1 01/04/2024 8:15 AM EDT Joe Castañeda HERACLIO-7 Total Score 5 01/04/2024 8:15 AM Joe Rosario * Over the past 2 weeks, how often have you been bothered by any of the following problems? Question Answer Date of Assessment Author Little interest or pleasure in doing things Several days 01/04/2024 8:14 AM Joe Rosario Feeling down, depressed, or hopeless Not at all 01/04/2024 8:14 AM FLORIDALMAT Joe Castañeda Trouble falling or staying asleep, or sleeping too much Nearly every day 01/04/2024 8:14 AM FLORIDALMAT Joe Castañeda Feeling tired or having little energy Several days 01/04/2024 8:14 AM FLORIDALMAT Joe Castañeda Poor appetite or overeating Several days 01/04/2024 8: 14 AM FLORIDALMAT Joe Castañeda Feeling bad about yourself - or that you are a failure or have let yourself or your family down Not at all 01/04/2024 8:14 AM Joe Rosario Trouble concentrating on things, such as reading the newspaper or watching television Not at all 01/04/2024 8:14 AM Joe Rosario Moving or speaking so slowly that other people could have noticed? Or the opposite - being so fidgety or restless that you have been moving around a lot more than usual. Several days 01/04/2024 8:14 AM Joe Rosario Thoughts that you would be better off or hurting yourself in some way Not at all 01/04/2024 8:14 AM Joe Rosario Patient Health Questionnaire-9 Score 7 01/04/2024 8:14 AM Joe Rosario documented as of this encounter Plan of Treatment Upcoming Encounters Date Type Department Care Team (Late st Contact Info) Description 08/10/2025 11:30 AM EST [facility] [address] [place] [address] Hen[place] Pat [facility] 230 [place] [address] 09/30/2025 10:00 AM EST Office Visit [facility] [address] [place] [address], [place] [address] Pat Juan FNP 230 [place] [address] documented as of this encounter Visit Diagnoses Diagnosis Tingling of both feet Depressive disorder Depressive disorder, not elsewhere classified documented in this encounter Additional Health Concerns Assessment Noted Time PHQ-9 Depression Total Score: 0 12/17/19 24 9:18 AM EDT documented as of this encounter Care Teams Aircraft Servicer Relationship Specialty Start Date End Date Pat Juan FNP 230 [place] [address] PCP - General Family Medicine 05/04/22 documented as of this encounter
--- OUTSIDE RECORDS SUMMARY | 2025-08-07 18:14 | XMS_ITS | Encounter Summary ---
Author Organization [employer] Address 75 [facility] 7t [place] [address] Care Team Providers Care Grinding Room Inspector Name Role Phone Bim [facility] Primary Care Provider [phone] Reason for Visit * Reason Comments Med Refill Encounter Details Date Type Department Care Team ([facility] st Contact Info) Description 12/06/2023 Refill [facility] 230 [place], [place] [phone] [facility] 230 [place], [place] [phone] Depressive disorder Social History Tobacco Use Types [...] Description 08/10/2025 11:30 AM EST Office Visit [facility] [address] [place] [address] [address] 09/30/2025 10:00 AM EST Office Visit [address] [address] documented as of this encounter Visit Diagnoses Diagnosis Depressive disorder Depressive disorder, not elsewhere classified documented in this encounter Additional Health Concerns Assessment Noted Time PHQ-9 Depression Total Score: 13 024 11:25 AM EST documented as of this encounter Care Teams Grinding Room Inspector Relationship Specialty Start Date End Date BimPat [facility] [address] [place] [address] PCP - General Family Medicine 05/04/22 documented as of this encounter
--- OUTSIDE RECORDS SUMMARY | 2025-08-07 18:14 | XMS_ITS | Encounter Summary ---
Author Organization [employer] Address 75 [facility] 7t [place] [address] Care Team Providers Care Batch Still Operator Name Role Phone Pat Juan TRANSPLANT REGISTERED NURSE Primary Care Provider [phone] Encounter Details Date Type Department Care Team (Late st Contact Info) Description 08/09/2023 Abstract [facility] 230 [place], [place] [phone] Rhina Diez Social History Tobacco Use Types [...] Description 08/10/2025 11:30 AM EST Office Visit [facility] [address] [place] [address] [address] 09/30/2025 10:00 AM EST Office Visit [address] [address] [facility] 230 [place] [address] documented as of this encounter Visit Diagnoses Not on filedocumented in this encounter Additional Health Concerns Assessment Noted Time PHQ-9 Depression Total Score: 0 07/18/20 23 9:27 AM EDT documented as of this encounter Care Teams Batch Still Operator Relationship Specialty Start Date End Date Pat Juan [facility] [address] [place] [address] PCP - General Family Medicine 05/04/22 documented as of this encounter
--- OUTSIDE RECORDS SUMMARY | 2025-08-07 18:14 | XMS_ITS | Encounter Summary ---
Author Organization [employer] Address [address] [facility] 7t [place] [address] Care Team Providers Care Drafter Cartographic Name Role Phone [place] [facility] Primary Care Provider [phone] Reason for Visit * Reason Comments Med Refill Encounter Details Date Type Department Care Team ([facility] st Contact Info) Description 02/21/2024 Refill [facility] 230 [place], [place] [phone] [facility] 230 [place], [place] [phone] Depressive disorder Social History Tobacco Use Types [...] Description 08/10/2025 11:30 AM EST Office Visit [facility] [address] [place] [address] [place] [address] [address] 09/30/2025 10:00 AM EST Office Visit [address] [address] documented as of this encounter Visit Diagnoses Diagnosis Depressive disorder Depressive disorder, not elsewhere classified documented in this encounter Additional Health Concerns Assessment Noted Time PHQ-9 Depression Total Score: 7 01/04/20 24 8:14 AM EDT documented as of this encounter Care Teams Drafter Cartographic Relationship Specialty Start Date End Date Pat Juan [facility] [address] [place] [address] PCP - General Family Medicine 05/04/22 documented as of this encounter
--- OUTSIDE RECORDS SUMMARY | 2025-08-07 18:14 | XMS_ITS | Clinical Summary ---
Author Organization [facility] Address [address] [place] [address] Phone Care Team Providers Care Machine Tester Name Role Phone [place] Primary Care Provider [phone] Allergies Active Allergy Reactions Criticality Noted Date [...] Problem Noted Date Diagnosed Date Meningioma, cerebral ([facility] V24, [facility] V28) 07/19/2023 Overview (07/22/2024): Last Assessment & [...] headaches which were treated with Fioricet in [place] but she has been unable to obtain it here. I will try again to order it for her from the [facility] pharmacy. Encounters Date Type Department Care Team Description 08/04/2025 Telephone Neurosurgery [facility] [address] [place] [address] Saundra Ríos MD 07/21/2025 1:42 PM EDT - 07/21/2025 11:59 PM EDT Hospital Encounter [facility] [address] [place] [address] Meningioma, cerebral ([facility] V24, [facility] V28) Discharge Disposition: Home or Self Care [...] 01/2022, 11/23/2014 Hepatitis C Screening Completed 01/31/2023 Influenza [...] Routine 07/21/2025 2:41 PM EDT Meningioma, cerebral (CMS/HCC V24, CMS/HCC V28) from Last 3 Months Results * [...] Signed Date: 07/24/2025 12:14 ET Workstation ID: [id number] Transcribed By: Self Edit Transcribed Date: 07/24/2025 [...] Signed Date: 07/24/2025 12:14 ET Workstation ID: [id number] Transcribed By: Self Edit Transcribed Date: 07/24/2025 12:10 ET us Saundra Ríos MD IMG MRI PROCEDURES Final Result from Last 3 Months Insurance [employer] MED[employer]ARE [employer]AGE Care Teams Machine Tester Relationship Specialty Start Date End Date [facility] [address] [place] [phone] PCP - General Family Medicine 07/28/24
--- OUTSIDE RECORDS SUMMARY | 2025-08-07 18:14 | XMS_ITS | Encounter Summary ---
Author Organization [employer] Address [address] [facility] 7t [place] [address] Care Team Providers Care Medical Scientist Name Role Phone Pr[place] [facility] Primary Care Provider [phone] Reason for Visit * Reason Comments Med Refill Encounter Details Date Type Department Care Team ([facility] st Contact Info) Description 11/08/[address] [facility]INE 230 [place], [place] [phone] [facility] 230 [place], [place] [phone] Tingling of both feet Social History Tobacco [...] Description 08/10/2025 11:30 AM EST Office Visit [address] [address] 09/30/2025 10:00 AM EST Office Visit [address] [address] documented as of this encounter Visit Diagnoses Diagnosis Tingling of both feet documented in this encounter Additional Health Concerns Assessment Noted Time PHQ-9 Depression Total Score: 13 024 11:25 AM EST documented as of this encounter Care Teams Medical Scientist Relationship Specialty Start Date End Date Pat Juan [facility] [address] [place] [address] PCP - General Family Medicine 05/04/22 documented as of this encounter
--- OUTSIDE RECORDS SUMMARY | 2025-08-07 18:14 | XMS_ITS | Encounter Summary ---
Author Organization [employer] Address [address] [facility] 7t [place] [address] Care Team Providers Care Pharmacy Coordinator Name Role Phone Pat Juan [facility] Primary Care Provider [phone] Reason for Visit * Reason Comments Med Refill Encounter Details Date Type Department Care Team (Late st Contact Info) Description 10/24/2023 Refill [facility] 230 [place], [place] [phone] Tracee Coulter ANP 230 [place], [place] [phone] Depressive disorder Social History Tobacco Use Types [...] Description 08/10/2025 11:30 AM EST Office Visit [facility] [address] [place] [address] [place] [address] [address] 09/30/2025 10:00 AM EST Office Visit [address] [address] documented as of this encounter Visit Diagnoses Diagnosis Depressive disorder Depressive disorder, not elsewhere classified documented in this encounter Additional Health Concerns Assessment Noted Time PHQ-9 Depression Total Score: 0 07/18/20 23 9:27 AM EDT documented as of this encounter Care Teams Pharmacy Coordinator Relationship Specialty Start Date End Date [place] [facility] [address] [place] [address] PCP - General Family Medicine 05/04/22 documented as of this encounter
--- OUTSIDE RECORDS SUMMARY | 2025-08-07 18:14 | XMS_ITS | Encounter Summary ---
Author Organization [employer] Address 75 [facility] 7t [place] [address] Care Team Providers Care Vice President Of Contracts Name Role Phone [place] [facility] Primary Care Provider [phone] Reason for Visit * Reason Onset Date Comments Med Refill 04/08/2025 Encounter Details Date Type Department Care Team ([facility] st Contact Info) Description 04/08/2025 Telephone [facility] 230 [place], [place] [phone] [facility] 230 [place], [place] [phone] Med Refill Social History Tobacco Use Types [...] MG disintegrating tablet To be sent to: [facility] [place], [place] - [address] [facility] documented in this encounter Plan of Treatment Upcoming Encounters Date Type Department Care Team (Late st Contact Info) Description 08/10/2025 11:30 AM EST Office Visit [facility] 230 [place] [address] Brighton Pat, TOOL AND EQUIPMENT RENTAL CLERK 230 [place] [address] 09/30/2025 10:00 AM EST Office Visit [facility] 230 [place] [address] Pat Juan FNP 230 [place] [address] documented as of this encounter Visit Diagnoses Not on filedocumented in this encounter Additional Health Concerns Assessment Noted Time PHQ-9 Depression Total Score: 0 03/25/20 25 11:20 AM EDT documented as of this encounter Care Teams Vice President Of Contracts Relationship Specialty Start Date End Date Pta Juan FNP 230 [place] [address] PCP - General Family Medicine 05/04/22 documented as of this encounter
--- OUTSIDE RECORDS SUMMARY | 2025-08-07 18:14 | XMS_ITS | Encounter Summary ---
Author Organization [employer] Address 75 [facility] 7t [place] [address] Care Team Providers Care Fur Sorter Name Role Phone [facility] Primary Care Provider [phone] Reason for Visit * Reason Onset Date Comments Med Refill 02/29/2024 Encounter Details Date Type Department Care Team ([facility] st Contact Info) Description 02/29/2024 Telephone [facility] MEDICINE 230 [place], [place] [phone] [facility] 230 [place], [place] [phone] Med Refill Social History Tobacco Use Types [...] 10 MG tablet To be sent to: [facility] at [place], [place] - [address] [facility] [address] documented in this encounter Plan of Treatment Upcoming Encounters Date Type Department Care Team (Late st Contact Info) Description 08/10/2025 11:30 AM EST Office Visit [facility] MEDICINE [address] [place] [address] [place] [facility] 230 [place] [address] 09/30/2025 10:00 AM EST Office Visit [facility]INE 230 [place] [address] [facility] 230 [place] [address] documented as of this encounter Visit Diagnoses Not on filedocumented in this encounter Additional Health Concerns Assessment Noted Time PHQ-9 Depression Total Score: 7 01/04/20 24 8:14 AM EDT documented as of this encounter Care Teams Fur Sorter Relationship Specialty Start Date End Date Pat Juan FNP 230 [place] [address] PCP - General Family Medicine 05/04/22 documented as of this encounter
--- OUTSIDE RECORDS SUMMARY | 2025-08-07 18:15 | XMS_ITS | Encounter Summary ---
Author Organization [employer] Address 75 [facility] 7t [place] [address] Care Team Providers Care Hollow Core Door Frame Assembler Name Role Phone Pat Juan COVER STITCH MACHINE OPERATOR Primary Care Provider [phone] Encounter Details Date Type Department Care Team (Late st Contact Info) Description 04/17/2024 Orders Only [facility] MEDICINE 230 [place], [place] [phone] Lori Werner MD 230 [place], [place] [phone] Social History Tobacco Use Types Packs/Day Years [...] Description 08/10/2025 11:30 AM EST Office Visit [address] [address] [facility] [address] [address] 09/30/2025 10:00 AM EST Office Visit [address] [address] Pat Juan [address] [address] documented as of this encounter Visit Diagnoses Not on filedocumented in this encounter Additional Health Concerns Assessment Noted Time PHQ-9 Depression Total Score: 0 03/19/20 24 8:51 AM EDT documented as of this encounter Care Teams Hollow Core Door Frame Assembler Relationship Specialty Start Date End Date Pat Juan [facility] [address] [place] [address] PCP - General Family Medicine 05/04/22 documented as of this encounter
--- OUTSIDE RECORDS SUMMARY | 2025-08-07 18:15 | XMS_ITS | Encounter Summary ---
Author Organization [employer] Address [address] [facility] 7t [place] [address] Care Team Providers Care Marine Electrician Helper Name Role Phone [facility] Primary Care Provider [phone] Reason for Visit * Reason Onset Date Comments Med Refill 01/21/2024 Encounter Details Date Type Department Care Team ([facility] st Contact Info) Description 01/21/2024 Telephone [facility] 230 [place], [place] [phone] [facility] 230 [place], [place] [phone] Med Refill Social History Tobacco Use Types [...] 11:57 AM EDT Medication was sent to [facility] on 11/26/23 #30 with 2 refills * Telephone Encounter - Eliana Varela - 01/21/2024 11:01 AM EDT TC from pt requesting medication refill. Medications needing refill : mirtazapine (Remeron SolTab) 45 MG disintegrating tablet To be sent to: [facility] at [place], [place] - [address] [facility] documented in this encounter Plan of Treatment Upcoming Encounters Date Type Department Care Team (Late st Contact Info) Description 08/10/2025 11:30 AM EST Office Visit [facility] [address] [place] [address] [facility] 230 [place] [address] 09/30/2025 10:00 AM EST Office Visit [facility] [address] [place] [address] [facility] 230 [place] [address] documented as of this encounter Visit Diagnoses Not on filedocumented in this encounter Additional Health Concerns Assessment Noted Time PHQ-9 Depression Total Score: 7 01/04/20 24 8:14 AM EDT documented as of this encounter Care Teams Marine Electrician Helper Relationship Specialty Start Date End Date Pat Juan FNP [address] [place] [address] PCP - General Family Medicine 05/04/22 documented as of this encounter
--- OUTSIDE RECORDS SUMMARY | 2025-08-07 18:15 | XMS_ITS | Encounter Summary ---
Author Organization [employer] Address 75 [facility] 7t [place] [address] Care Team Providers Care Property Utilization Officer Name Role Phone [facility] Primary Care Provider [phone] Reason for Visit * Reason Comments Med Refill Encounter Details Date Type Department Care Team ([facility] st Contact Info) Description 04/14/2024 Refill [facility] MEDICINE 230 [place], [place] [phone] [facility] 230 [place], [place] [phone] Depressive disorder Social History Tobacco Use Types [...] Description 08/10/2025 11:30 AM EST Office Visit [address] [address] [place] [address] [address] 09/30/2025 10:00 AM EST Office Visit [address] [address] [place] [address] [address] documented as of this encounter Visit Diagnoses Diagnosis Depressive disorder Depressive disorder, not elsewhere classified documented in this encounter Additional Health Concerns Assessment Noted Time PHQ-9 Depression Total Score: 0 03/19/20 24 8:51 AM EDT documented as of this encounter Care Teams Property Utilization Officer Relationship Specialty Start Date End Date Pat Juan [facility] [address] [place] [address] PCP - General Family Medicine 05/04/22 documented as of this encounter
== END 2025-08-07 12:07 | disposition home or self-care (01) ==
LOC: HO.MAMMO 12:06
PROVIDERS: PCP Registered Nurse; Visit Provider Internal Medicine Endocrinology, Diabetes & Metabolism
DX: M81.0 Age-related osteoporosis without current pathological fracture (principal)
CPT/HCPCS: 20610; 77081; 99212

== ENCOUNTER → 2025-08-07 12:30 | Outpatient (BNV) | payer MEDICARE, SELFPAY | PROVIDERS: PCP Registered Nurse; Visit Provider Radiology Diagnostic Radiology | DX: E28.39 Other primary ovarian failure (principal) | CPT/HCPCS: 77081 ==

== ENCOUNTER 2025-09-09 12:15 | Outpatient (REF) | payer MEDICARE, SELFPAY ==
--- OUTSIDE RECORDS SUMMARY | 2025-09-09 16:11 | XMS_ITS | Encounter Summary ---
Author Organization [employer] Address [address] [facility] [address] [place] [address] Care Team Providers Care Governor Assembler Hydraulic Name Role Phone Pat Juan SALES AND SERVICE CONSULTANT Primary Care Provider [phone] Reason for Visit * Reason Comments Med Refill Encounter Details Date Type Department Care Team (Late st Contact Info) Description 10/24/2023 Refill [facility] [address], [place] [phone] Tracee Coulter ANP [address], [place] [phone] Depressive disorder Social History Tobacco Use Types [...] Care Team (Late st Contact Info) Description 09/30/2025 10:00 AM EST Office Visit [facility] [address] [place] [address] Pat Juan FNP [address] [place] [address] documented as of this encounter Visit Diagnoses Diagnosis Depressive disorder Depressive disorder, not elsewhere classified documented in this encounter Additional Health Concerns Assessment Noted Time PHQ-9 Depression Total Score: 0 07/18/20 23 9:27 AM EDT documented as of this encounter Care Teams Governor Assembler Hydraulic Relationship Specialty Start Date End Date Pat Juan FNP [address] [place] [address] PCP - General Family Medicine 05/04/22 documented as of this encounter
--- OUTSIDE RECORDS SUMMARY | 2025-09-09 16:11 | XMS_ITS | Encounter Summary ---
Author Organization [employer] Address [address] [facility] [address] [place] [address] Care Team Providers Care Body Care Manager Name Role Phone [facility] Primary Care Provider Reason for Visit * Reason Comments Med Refill Encounter Details Date Type Department Care Team ([facility] st Contact Info) Description 12/06/2023 Refill [facility] [address], [place] [phone] [facility] [address] [place], [place] [phone] Depressive disorder Social History Tobacco Use Types [...] Description 09/30/2025 10:00 AM EST Office Visit [facility] [address] [place] [phone] Pat Juan FNP [address] [place] [address] documented as of this encounter Visit Diagnoses Diagnosis Depressive disorder Depressive disorder, not elsewhere classified documented in this encounter Additional Health Concerns Assessment Noted Time PHQ-9 Depression Total Score: 13 024 11:25 AM EST documented as of this encounter Care Teams Body Care Manager Relationship Specialty Start Date End Date Pat Juan FNP [address] [place] [phone] PCP - General Family Medicine 05/04/22 documented as of this encounter
--- OUTSIDE RECORDS SUMMARY | 2025-09-09 16:11 | XMS_ITS | Encounter Summary ---
Author Organization [employer] Address [address] [facility] [address] [place] [address] Care Team Providers Care Security Associate Name Role Phone Pat Juan [employer]ER Primary Care Provider [phone] Encounter Details Date Type Department Care Team (Late st Contact Info) Description 08/09/2023 Abstract [facility] [address] [place], [place] [phone] Rhina Diez Social History Tobacco Use Types [...] Description 09/30/2025 10:00 AM EST Office Visit [facility] [address] [place] [address] Pat Juan FNP [address] [place] [address] documented as of this encounter Visit Diagnoses Not on filedocumented in this encounter Additional Health Concerns Assessment Noted Time PHQ-9 Depression Total Score: 0 07/18/20 23 9:27 AM EDT documented as of this encounter Care Teams Security Associate Relationship Specialty Start Date End Date Pat Juan FNP [address] [place] [phone] PCP - General Family Medicine 05/04/22 documented as of this encounter
--- OUTSIDE RECORDS SUMMARY | 2025-09-09 16:11 | XMS_ITS | Clinical Summary ---
Author Organization [employer] Address [address] [facility] 7[address] [place] [address] Care Team Providers Care Youth Care Worker Name Role Phone Pat Juan [facility] Primary Care Provider [phone] Allergies Active Allergy Reactions Criticality Noted Date Comments Morphine Rash Low 03/24/2011 Other reaction(s): Rash Medications * This document contains information received from the source organization and may not represent a complete record from that organization. glucose blood (Pesco-Beam Environmental SolutionsTouch Ultra) test strip USE 1 STRIP by [...] 1 Active Blood Glucose Monitoring Suppl (FreeStyle [place] Lite) w/Device kitIndications:Pr ediabetes,Hypogly cemia Use to [...] muscle spasms. 15 tablet 025 2025 Active olmesartan (BENIcar) 20 MG tabletIndications :Essential [...] SUGAR 1 TIMES DAILY 100 each 3 08/14/20 25 12:14 PM EST 025 Active Multiple Vitamin (Daily-Jacquelyn) tablet TAKE 1 TABLET BY MOUTH EVERY DAY WITH FOOD 90 tablet 2 025 Active meloxicam (Mobic) 7.5 MG tabletIndications :Muscle spasm TAKE 1 TABLET BY MOUTH EVERY DAY 30 tablet 025 Active Trelegy Ellipta 200-62.5-25 MCG/ACT aerosol powder 025 Active hydroCHLOROthiazi de 12.5 MG tablet Active mirtazapine (Remeron Eliana-Tab) 45 MG disintegrating tabletIndications :Depressive disorder TAKE 1 TABLET BY MOUTH DAILY AT BEDTIME 30 tablet 3 08/14/20 25 4:23 PM EST 025 Active citalopram (CeleXA) 20 MG tabletIndications [...] EVERY DAY 30 tablet 4 025 Active cyanocobalamin (Vitamin B-12) 1000 MCG tabletIndications :Tingling of both feet TAKE 1 TABLET BY MOUTH EVERY MORNING 30 tablet 3 08/17/20 25 4:37 PM EST 025 Active LORazepam (Ativan) 0.5 MG tabletIndications :Situational anxiety Take 1 tablet by oral route 30 minutes before flight 4 tablet 08/14/20 25 12:14 PM EST 025 Active zolpidem (Ambien) 10 MG tabletIndications :Depressive disorder TAKE 1 TABLET BY MOUTH DAILY AT BEDTIME 28 tablet 025 Active cyanocobalamin (Vitamin B-12) 1000 MCG tabletIndications :Tingling of both feet TAKE 1 TABLET BY MOUTH EVERY MORNING 30 tablet 4 025 2024 Discontinued zolpidem (Ambien) 10 MG tabletIndications :Depressive disorder TAKE 1 TABLET BY MOUTH DAILY AT BEDTIME 28 tablet 025 2024 Discontinued Active Problems Problem [...] idiopathic constipation 05/05/2023 Overview (05/05/2023): [place] [facility] Linzess Numbness and [...] reflux disease 06/02/2013 Overview (10/10/2024): [place] [facility] [place] EGD 2021 [...] cis-female with previous documented hx of Depression MH services including OP Psychotherapy psychopharmacology who presents [...] intervention , Patient to reach out to [facility] ED team as needed, and Patient to engage [...] oxygen 2L PRN albuterol Followed by [place]mon[place] [facility] Assessment & Plan (02/03/2025 4:57 PM EDT): Now stable continue with same interventions Assessment & Plan (10/30/2024 10:58 AM EST): Mild exacerbation due to Covid infection. Increase Symbicort to Que 6 hours prn SOB/cough. FU with Interior Horticulturist. Assessment & Plan (08/18/2024 11:43 AM EST): [...] Encounters Date Type Department Care Team Description 08/27/2025 Refill [facility] [address] [place] [phone] Pat Juan FNP Depressive disorder 08/10/2025 11:00 AM EST Office Visit [facility] [address] [place] [phone] Sharon Camacho FNP Acute gastroenteritis (Primary Dx); Anxiety; Hospital discharge follow-up 08/10/2025 Telephone [facility] [address] [place] [phone] Pat Juan FNP Care Coordination 08/10/2025 Orders Only [facility] [address] [place] [address] Pat Juan FNP Situational anxiety (Primary Dx) 08/10/2025 Refill [facility] [address] [place] [address] Pat Juan FNP Tingling of both feet 08/10/2025 Travel 08/10/[address] [address] Pat Juan FNP Appt r/s 08/06/[address] [address] Pat Juan FNP 08/04/[address] [address] Rochelle Horn, JACE NTTS f/up 08/03/2025 Orders Only GENERIC EXTERNAL DATA DEPARTMENT Provider, Generic External Data 07/31/2025 Refill [facility] [address] [place] [phone] [place] [facility] Depressive disorder 07/27/[address] [address] [place] [facility] 07/13/2025 Refill [facility] [address] [place] [address] [place] [facility] Chronic nonintractable headache, unspecified headache type; Primary hypertension 07/08/[address] [address] Olivia Ramirez MD Depressive disorder 07/03/2025 [facility] [address] [address] [place] [facility] POCT Glucose, POCT Hgb A1c, Comprehensive Metabolic Panel, Additional followed-up results: 3 07/01/[address] [address] [facility] Care Coordination 06/29/2025 10:30 AM EDT Office Visit [address] [address] [place] [facility] Essential hypertension (Primary Dx); Type 2 diabetes mellitus without complication, without long-term current use of insulin (HCC); Encounter for immunization; Depressive disorder 06/29/2025 Travel 06/19/2025 Patient Outreach [address] [address] [place] [facility] Pre-visit Planning (SDOH screening completed on 03/18/2025) 06/15/[address] [address] Lori Werner MD Muscle spasm 06/13/2025 Orders Only [facility] External Provider, [facility] from Last 3 Months Immunizations Immunization Administration [...] Packs/Day Years Used Date Smoking Tobacco: Never Passive Smoke Exposure: Never Smokeless Tobacco: Never Tobacco Cessation:Counseling Given: [...] Sign Reading Time Taken Comments Blood Pressure 128/76 08/10/2025 11:04 AM EST Pulse 60 08/10/2025 11:04 AM EST Temperature 36.8 C (98.2 F) 08/10/2025 11:04 AM EST Respiratory Rate 16 08/10/2025 11:04 AM EST Oxygen Saturation 96% 08/10/2025 11:04 AM EST Inhaled Oxygen Concentration - - Weight 62.1 kg (137 lb) 08/10/2025 11:04 AM EST Height 149.9 cm (4' 11 ) 08/10/2025 11:04 AM EST Body Mass Index 27.67 08/10/2025 11:04 AM EST Plan of Treatment Upcoming Encounters Date Type Department Care Team (Late st Contact Info) Description 09/30/2025 10:00 AM EST Office Visit [facility] [address] [place] [address] [facility] [address] [place] [address] Health Maintenance Due Date Last Done Comments [...] 06/30/2026 06/30/2025, 08/25, 01/31/2023, Additional history exists Alcohol/Substance Use Screening 08/10/2026 08/10/2025 Tobacco Screening 08/10/2026 08/10/2025 DTaP/Tdap/Td Vaccines (3 - Td or Tdap) [...] PM EST Narrative 08/07/2025 4:42 PM EST [address] [place] [address] Mammography Report Signed Patient: Hedy Davis MR#: [id number] 89 : 1950 Acct:[id number] Age/Sex: 74 / F ADM Date: 08/07/25 Loc: HO.MAMMO Attending Dr: Pedro Luis Molina MD Ordering Physician: Pedro Luis Molina MD Results: Date of Service: 08/07/25 Follow Up: Procedure(s): XR DEXA appendicular skeleton Accession Number(s): [id number] cc: Pedro Luis Molina MD; [facility] Reason For Exam: M81.0 - Age-related osteoporosis without current pathological fracture EXAMINATION: DXA BONE DENSITY EXTREMITY HISTORY: M81.0 - Age-related osteoporosis without current pathological fracture TECHNIQUE: MediaVast Dual energy absorptiometry (DEXA) of the lumbar [...] of the [employer] [place] for Metabolic Bone Disease, a World Health Organization (WHO) Collaborating Center. Electronically signed by: Belén Hui MD 08/07/2025 04:39 PM [facility] Dictated By: Belén Hui MD Signed By: <Electronically signed by Belén Hui MD in OV> 08/07/25 1639 DD/ 1230 TD/TT: 08/07/25 1245 Property Specialist: TORIE Procedure Note Donotuseinterpreter, Image - 08/07/2025 [facility] [address] [place] [address] Mammography Report Signed Patient: Martín Davis#: [id number] [birth year] : 9Acct:[id number] Age/Sex: 74 / FADM Date: 08/07/25 Loc: PIERREO Attending Dr: Pedro Luis Molina MD Ordering Physician: Pedro Luis Molina [facility] Date of Service: 08/07/25Follow Up: Procedure(s): XR DEXA appendicular skeleton Accession Number(s): [id number] cc: Pedro Luis Molina MD; [facility] Reason For Exam: M81.0 - Age-related osteoporosis without currentpathological fracture EXAMINATION: DXA BONE DENSITY EXTREMITY HISTORY: M81.0 - Age-related osteoporosis without current pathological fracture TECHNIQUE: MediaVast Dual energy absorptiometry (DEXA) of the lumbar [...] of the [employer] for Metabolic Bone Disease, a World Health Organization (WHO) Collaborating Center. Electronically signed by: Belén Hui MD 08/07/2025 04:39 PM EST Dictated By: Belén Hui MD Signed By: <Electronically signed by Belén Hui MD in OV> 08/07/25 1639 DD/ 1230 TD/TT: 08/07/25 1245 Property Specialist: TORIE [facility] External Provider IMG XR PROCEDURES Final Result * XR ACUTE ABDOMEN SERIES (08/03/2025 11:38 PM EST) Anatomical Region Laterality Modality Abdomen Radiographic Nohemi ging 08/03/2025 11:3 8 PM EST Narrative 08/03/2025 11:39 PM EST [address] [address] XRay Report Signed Patient: Hedy Davis MR#: [id number] [birth year] : 1950 Acct:[id number] Age/Sex: 74 / F ADM Date: 08/03/25 Loc: HO.ED Attending Dr: Ordering Physician: Shi Mak DO Date of Service: 08/03/25 Procedure(s): XR acute abdomen series Accession Number(s): [id number] cc: Shi Mak DO; [facility] Reason for Exam: abd pain, vomiting CLINICAL [...] in OV> 08/03/252337 DD/ 37 TD/TT: 08/03/252337 Property Specialist: Procedure Note Donotuseinterpreter, Image - 08/03/2025 [place] [address] XRay Report Signed Patient: Martín Davis#: [id number] [birth year] : 9Acct:[id number] Age/Sex: 74 / FADM Date: 08/03/25 Loc: .ED Attending Dr: Ordering Physician: Shi Mak DO Date of Service: 08/03/25 Procedure(s): XR acute abdomen series Accession Number(s): [id number] cc: Shi Mak DO; [facility] Reason for Exam: abd pain, vomiting CLINICAL [...] in OV> 08/03/252337 DD/ 37 TD/TT: 08/03/252337 Property Specialist: [facility] External Provider IMG XR PROCEDURES Edited Result - Final * High Sensitivity Troponin I (08/03/2025 8:23 PM EST) Pathologist [facility] TROPONIN I HIGH SENSITIVITY <2.7 <3.5 - 17.0 ng/L [facility] Comment:The [place] high sens itivity Troponin-I results should beused in conjunction with other diagnostic information suchas ECG, clinical observations and information, and patientsymptoms to aid in the diagnosis of [place]. 08/03/2025 8:23 PM EST 08/03/2025 8:26 PM EST Generic External Data Provider LAB BLOOD ORDERAB LES Final Result [facility] [address] [place] [phone] * SARS-CoV-2 RNA, Influenza A/B, and RSV RNA, Ql NAAT (08/03/2025 8:23 PM EST) Pathologist [facility] Influenza A PCR NEGATIVE Negative [facility] Influenza B PCR NEGATIVE Negative [facility] Resp Syncy Virus RNA Qual PCR NEGATIVE Negative [facility] SARS COV2 PCR NEGATIVE Negative [facility] Comment:All test results mus t be [...] use by authorized laboratories.Testing performed on the Attensa GeneXpert utilizingreal-time RT-PCR.All SARS CoV2 and positive influenza A/B results arereported to [facility]. 08/03/2025 8:23 PM EST 08/03/2025 8:26 PM EST us Generic External Data Provider LAB MICROBIOLOGY - GENERAL ORDERABLES Final Result [facility] [address] [place] [address] [phone] * (ABNORMAL) CBC auto differential (08/03/2025 8:23 PM EST) Only the most recent of2 resultswithin the time period is included. White Blood Count 7.2 4.8 - 10.8 X10*3/uL [facility] Red Blood Count 4.17(L) 4.20 - 5.50 X10*6/uL [facility] Hemoglobin 13.2 12.0 - 16.0 g/dl [facility] Hematocrit 40.2 37.0 - 47.0 % [facility] Mean Corpuscular Volume 96.4 80.0 - 98.0 fL [facility] Mean Corpuscular Hemoglobin 31.7 27.0 - 33.0 pg [facility] Mean Corpuscular HGB Conc 32.8 31.0 - 35.0 g/dl [facility] Red Cell Distribution Width 14.1 11.0 - 16.0 % [facility] Platelet Count 253 160 - 400 X10*3/uL [facility] Mean Platelet Volume 10.6 9.4 - 12.3 fL [facility] Neutrophils Percent Auto 70.2 45 - 73 % [facility] Imm Gran Pct Auto 0.1 0.0 - 0.4 % [facility] Lymphocytes Percent Auto 21.0 20 - 40 % [facility] Monocytes Percent Auto 6.2 2 - 11 % [facility] Eosinophils Percent Auto 1.9 0 - 4 % [facility] Basophils Percent Auto 0.6 0 - 2 % [facility] NRBC Pct Auto 0.0 0.0 - 0.2 /100WBC [facility] Neutrophils Absolute Auto 5.1 2.0 - 8.3 x10*3/uL [facility] Imm Gran Abs Auto 0.01 0.00 - 0.03 X10*3/uL [facility] Lymphocytes Absolute Auto 1.5 1.2 - 4.9 X10*3/uL [facility] Monocytes Absolute Auto 0.5 0.1 - 1.2 X10*3/uL [facility] Eosinophils Absolute Auto 0.1 0.0 - 0.4 X10*3/uL [facility] Basophils Absolute Auto 0.0 0.0 - 0.2 X10*3/uL [facility] NRBC Abs Auto 0.000 0.0 - 0.012 X10*3/uL [facility] 08/03/2025 8:23 PM EST 08/03/2025 8:26 PM EST us Generic External Data Provider LAB BLOOD ORDERAB LES Final Result Performing Organization Address [facility] Co de Phone Number [facility] [address] [place] [phone] * Magnesium (08/03/2025 8:23 PM EST) Magnesium 2.2 1.6 - 2.6 mg/dL [facility] 08/03/2025 8:23 PM EST 08/03/2025 8:26 PM EST us Generic External Data Provider LAB BLOOD ORDERAB LES Final Result Performing Organization Address [facility] Co de Phone Number [facility] [address] [place] [address] [phone] * (ABNORMAL) Comprehensive Metabolic Panel (08/03/2025 8:23 PM EST) Only the most recent of2 resultswithin the time period is included. Sodium 146(H) 135 - 145 mmol/L [facility] Potassium 4.4 3.3 - 5.1 mmol/L [facility] Chloride 107 96 - 108 mmol/L [facility] Carbon Dioxide 27 22 - 29 mmol/L [facility] Anion Gap 16 12 - 20 [facility] Urea Nitrogen (BUN) 18(H) 9 - 16 mg/dL [facility] Creatinine, Serum 0.93 0.5 - 1.4 mg/dL [facility] Creatinine Clr Calc Pharmacy 46.2 [facility] Comment:Provided height and weight: 157.48 cm,67.3 kg.eGFR (calculated from the MDRD study equation) and eCrCl(calculated from the Cockcroft-Gault equation) are based ondifferent parameters and may not yield comparable results.If eCrCl result is absurd, please check patient'sheight/weight. Estimated Glomerular Filt Rate 59 [facility] Comment:Chronic Kidney Disea se: Estimated GFR < 60 mL/min/1.53s0Jlyxdw Kidney Disease: Estimated GFR < 15 mL/min/1.73m2 Glucose 110 60 - 115 mg/dL [facility] Calcium 9.6 8.4 - 10.2 mg/dL [facility] Bilirubin, Total 0.7 0.0 - 1.0 mg/dL [facility] Aspartate Amino Transferase 34(H) 5 - 31 U/L [facility] Alanine Aminotransferase 38(H) 0 - 31 U/L [facility] Total Protein 7.9 6.5 - 8.0 g/dL [facility] Albumin Level 4.7 3.5 - 5.0 g/dL [facility] Alkaline Phosphatase 78 39 - 117 U/L [facility] 08/03/2025 8:23 PM EST 08/03/2025 8:26 PM EST Generic External Data Provider LAB BLOOD ORDERAB LES Final Result Performing Organization Address [facility] Co de Phone Number [facility] [address] [place] [phone] * Albumin, Random Urine W/Creatinine (06/30/2025 9:12 AM EDT) Creatinine, Urine 187.30 mg/dL [facility] Microalbumin Urine 8.0 mg/L [facility] Microalbum Creatinine Ratio Ur 4.2 <30 ug/mg cr [facility] Comment:Albumin/Creatinine R atio Reference Ranges: Normal: < 30 ug/mg creatinine Microalbuminuria: 30 - 300 ug/mg creatinineClinical Albuminuria: > 300 ug/mg creatinine Urine 06/30/2025 9:12 AM EDT 06/30/2025 11:13 AM EDT [facility] COMPOSER TEACHING ARTIST LAB URINE ORDERABLES Final Re sult Performing Organization Address [facility] de Phone Number [facility] [address] [place] [phone] * Lipid Panel, Standard (06/30/2025 9:12 AM EDT) Triglycerides 116 <150 mg/dL [facility] Comment:Desirable Triglyceri de: less than 150 mg/dLBorderline High Triglyceride 150-199 mg/dLHigh Triglyceride: 200-499 mg/dLVery High Triglyceride: greater than or equal to 5OO mg/dL Cholesterol 141 <200 mg/dL [facility] Comment:Desirable Cholestero l: less than 200 mg/dLBorderline High Cholesterol: 200-239 mg/dLHigh Cholesterol: greater than 239 mg/dL LDL Cholesterol Calculated 70 <100 mg/dL [facility] Comment:Desirable LDL: less than 100 mg/dLNear Optimal/Above Optimal LDL: 110- 129 mg/dLBorderline High LDL: 130-159 mg/dLHigh LDL: 160-189 mg/dLVery High LDL: greater than or equal to 190 mg/dL HDL Cholesterol 48 >40 mg/dL [facility] Comment:Desirable HDL: great er than 40 mg/dL Note: This HDL assay may give artificially low results in patients with liver disease. Blood Venous blood specimen / Unknown 06/30/2025 9:12 AM EDT 06/30/2025 11:15 AM EDT [facility] LAB BLOOD ORDERABLES Final Re sult [facility] [address] [place] [address] [phone] * POCT Hgb A1c (06/29/2025 10:52 AM EDT) Hemoglobin A1C 5.6 4.0 - 5.7 % QC Media Lot # [id number] Lot# Expiration Date Blood 06/29/2025 10:5 2 AM EDT [facility] POINT OF CARE TEST ENTER/EDIT ORDERABLES Final Result * POCT Glucose (06/29/2025 10:52 AM EDT) Glucose Blood, POC 127 60 - 200 mg/dL QC Media Lot # [id number] Lot# Expiration Date Blood Capillary blood specimen / Unknown 06/29/2025 10:52 AM EDT [facility] POINT OF CARE TEST ENTER/EDIT ORDERABLES Final Result * MR Knee w/o Contrast Right (06/15/2025 8:55 AM EDT) Anatomical Region Laterality Modality Magnetic Resonan ce 06/15/2025 8:55 AM EDT Narrative 06/15/2025 8:56 AM EDT [address] [address] Magnetic Resonance Report Signed Patient: Hedy Davis MR#: [id number] [birth year] : 1950 Acct:[id number] Age/Sex: 74 / F ADM Date: 06/13/25 Loc: HO.MRI Attending Dr: Terry Hernandes MD Ordering Physician: Terry Hernandes MD Date of Service: 06/13/25 Procedure(s): MR knee RT wo con Accession Number(s): [id number] cc: Terry Hernandes MD; [facility] Reason for Exam: S83.241A - Other tear [...] OV> 06/15/25 0856 DD/ 0855 TD/TT: 06/15/2555 Property Specialist: Procedure Note Donotuseinterpreter, Image - 06/15/[address] [address] Magnetic Resonance Report Signed Patient: Hedy DavisMR#: [id number] [birth year] : 9Acct:[id number] Age/Sex: 74 / FADM Date: 06/13/25 Loc: HO.MRI Attending Dr: Terry Hernandes MD Ordering Physician: Terry Hernandes MD Date of Service: 06/13/25 Procedure(s): MR knee RT wo con Accession Number(s): [id number] cc: Terry Hernandes MD; [facility] Reason for Exam: S83.241A - Other tear [...] Chua MD in OV> 06/15/25 0856 DD/ 4 TD/TT: 06/15/25854 Property Specialist: [facility] External Provider IM MRI PROCEDURES Edited Result - Final * Hepatitis C Antibody with Reflex to HCV, RNA, Quantitative, Real-Time PCR (01/31/2023 4:01 PM EDT) Hepatitis C Antibody NON-REACT HERRERA NON-REACT HERRERA [facility] Index 0.09 <1.00 [facility] Comment: HCV antibody was non-reactive. There is no laboratory evidence of HCV infection. In most cases, no further action is required. However, if recent HCV exposure is suspected, a test for HCV RNA (test code 49648) is suggested. For additional information please refer to http://education.true[x] Media.CellSpin/faq/SBX32o4 (This link is being provided for informational/ educational purposes only.) Blood Venous blood specimen / Unknown 01/31/2023 4:01 PM EDT 01/31/2023 4:01 PM EDT [facility] COMPOSER TEACHING ARTIST LAB BLOOD ORDERABLES Final Re sult [facility] [address], [place] [address] [facility] [address] [place] [phone] * Hm Colonoscopy (08/24/2022) Colonoscopy Normal Normal Comment:[facility] - negative 08/24/2022 Historical Provider HEALTH MAINTENANCE Final Result from Last 3 Months or Most Recently Relevant to Health Maintenance Insurance [employer] MEDICARE REPLACEMENT N PARTIAL Care Teams Youth Care Worker Relationship Specialty Start Date End Date Pat Juan FNP [address] [place] [phone] PCP - General Family Medicine 05/04/22
--- OUTSIDE RECORDS SUMMARY | 2025-09-09 16:11 | XMS_ITS | Encounter Summary ---
Author Organization [employer] Address [address] [facility] 7t [place] [address] Care Team Providers Care Fish Hatchery Supervisor Name Role Phone [facility] Primary Care Provider [phone] Reason for Visit * Reason Comments Med Refill Encounter Details Date Type Department Care Team ([facility] st Contact Info) Description 11/08/2023 Refill [facility] [address] [place], [place] [phone] [facility] [address] [place], [place] [phone] Tingling of both feet Social History Tobacco [...] Description 09/30/2025 10:00 AM EST Office Visit [facility] [address] [place] [address] Pat Juan FNP [address] [place] [address] documented as of this encounter Visit Diagnoses Diagnosis Tingling of both feet documented in this encounter Additional Health Concerns Assessment Noted Time PHQ-9 Depression Total Score: 13 024 11:25 AM EST documented as of this encounter Care Teams Fish Hatchery Supervisor Relationship Specialty Start Date End Date Pat Juan FNP [address] [place] [address] PCP - General Family Medicine 05/04/22 documented as of this encounter
--- OUTSIDE RECORDS SUMMARY | 2025-09-09 16:11 | XMS_ITS | Encounter Summary ---
Author Organization [employer] Address [address] [facility] 7t [place] [address] Care Team Providers Care Head Char Filter Tank Tender Name Role Phone Brandon [facility] Primary Care Provider [phone] Reason for Visit * Reason Onset Date Comments Med Refill 02/29/2024 Encounter Details Date Type Department Care Team ([facility] st Contact Info) Description 02/29/2024 Telephone [facility] [address] [place], [place] [phone] [facility] 230 [place], [place] [phone] Med Refill Social History Tobacco Use Types [...] 10 MG tablet To be sent to: [facility] at [place], [place] - [address] documented in this encounter Plan of Treatment Upcoming Encounters Date Type Department Care Team (Late st Contact Info) Description 09/30/2025 10:00 AM EST Office Visit [facility] [address] [place] [address] Pat Juan FNP [address] [place] [address] documented as of this encounter Visit Diagnoses Not on filedocumented in this encounter Additional Health Concerns Assessment Noted Time PHQ-9 Depression Total Score: 7 01/04/20 24 8:14 AM EDT documented as of this encounter Care Teams Head Char Filter Tank Tender Relationship Specialty Start Date End Date Pat Juan FNP [address] [place] [address] PCP - General Family Medicine 05/04/22 documented as of this encounter
--- OUTSIDE RECORDS SUMMARY | 2025-09-09 16:11 | XMS_ITS | Encounter Summary ---
Author Organization [employer] Address [address] [facility] 7t [place] [address] Care Team Providers Care Neurosurgery Research Director Name Role Phone [place] [facility] Primary Care Provider [phone] Reason for Visit * Reason Onset Date Comments Med Refill 01/21/2024 Encounter Details Date Type Department Care Team ([facility] st Contact Info) Description 01/21/2024 Telephone [facility] 230 [place], [place] [phone] [facility] 230 [place], [place] [phone] Med Refill Social History Tobacco Use Types [...] 11:57 AM EDT Medication was sent to [facility] on 11/26/23 #30 with 2 refills * Telephone Encounter - Eliana Varela - 01/21/2024 11:01 AM EDT TC from pt requesting medication refill. Medications needing refill : mirtazapine (Remeron SolTab) 45 MG disintegrating tablet To be sent to: [facility] at [place], [place] - [address] documented in this encounter Plan of Treatment Upcoming Encounters Date Type Department Care Team (Late st Contact Info) Description 09/30/2025 10:00 AM EST Office Visit [facility] [address] [place] [address] Pat Juan FNP [address] [place] [address] documented as of this encounter Visit Diagnoses Not on filedocumented in this encounter Additional Health Concerns Assessment Noted Time PHQ-9 Depression Total Score: 7 01/04/20 24 8:14 AM EDT documented as of this encounter Care Teams Neurosurgery Research Director Relationship Specialty Start Date End Date Pat Juan FNP [address] [place] [address] PCP - General Family Medicine 05/04/22 documented as of this encounter
--- OUTSIDE RECORDS SUMMARY | 2025-09-09 16:11 | XMS_ITS | Encounter Summary ---
Author Organization [employer] Address [address] [facility] 7t [place] [address] Care Team Providers Care Yarn Examiner Skeins Name Role Phone [facility] Primary Care Provider [phone] Reason for Visit * Reason Comments Med Refill Encounter Details Date Type Department Care Team ([facility] st Contact Info) Description 02/21/2024 Refill [facility] 230 [place], [place] [phone] [facility] 230 [place], [place] [phone] Depressive disorder Social History Tobacco Use Types [...] 10:00 AM EST Office Visit [facility] [address] [place] [address] Pat Juan FNP [address] [place] [address] documented as of this encounter Visit Diagnoses Diagnosis Depressive disorder Depressive disorder, not elsewhere classified documented in this encounter Additional Health Concerns Assessment Noted Time PHQ-9 Depression Total Score: 7 01/04/20 24 8:14 AM EDT documented as of this encounter Care Teams Yarn Examiner Skeins Relationship Specialty Start Date End Date Pat Juan FNP [address] [place] [address] PCP - General Family Medicine 05/04/22 documented as of this encounter
--- OUTSIDE RECORDS SUMMARY | 2025-09-09 16:11 | XMS_ITS | Encounter Summary ---
Author Organization [employer] Address [address] [facility] 7[address] [place] [address] Care Team Providers Care Computer Engineering Technician Name Role Phone [facility] Primary Care Provider [phone] Reason for Visit * Reason Comments Med Refill Encounter Details Date Type Department Care Team ([facility] Contact Info) Description 11/06/2022 Refill [facility] [address] [place], [place] [phone] [facility] 230 [place], [place] [phone] Depressive disorder Social History Tobacco Use Types [...] Department Care Team (Late Contact Info) Description 09/30/2025 10:00 AM EST Office Visit [facility] MEDICINE [address] [place] [phone] [facility] 230 [place], [place] [phone] documented as of this encounter Visit Diagnoses Diagnosis Depressive disorder Depressive disorder, not elsewhere classified documented in this encounter Additional Health Concerns Assessment Noted Time PHQ-9 Depression Total Score: 0 10/24/19 23 10:40 AM EST documented as of this encounter Care Teams Computer Engineering Technician Relationship Specialty Start Date End Date [place] CARLOS Stewart [address] [place] [address] PCP - General Family Medicine 05/04/22 documented as of this encounter
--- OUTSIDE RECORDS SUMMARY | 2025-09-09 16:11 | XMS_ITS | Encounter Summary ---
Author Organization [employer] Address [address] [facility] 7t [place] [address] Care Team Providers Care Junior Account Executive Name Role Phone [place] [facility] Primary Care Provider [phone] Reason for Visit * Reason Onset Date Comments Med Refill 04/08/2025 Encounter Details Date Type Department Care Team ([facility] st Contact Info) Description 04/08/2025 Telephone [facility] 230 [place], [place] [phone] [facility] 230 [place], [place] [phone] Med Refill Social History Tobacco Use Types [...] MG disintegrating tablet To be sent to: [facility] [place], [place] - [address] [facility] documented in this encounter Plan of Treatment Upcoming Encounters Date Type Department Care Team (Late st Contact Info) Description 09/30/2025 10:00 AM EST Office Visit [facility] [address] [place] [address] [place], LEAD JAVASCRIPT ENGINEER [address] [place] [address] documented as of this encounter Visit Diagnoses Not on filedocumented in this encounter Additional Health Concerns Assessment Noted Time PHQ-9 Depression Total Score: 0 03/25/20 25 11:20 AM EDT documented as of this encounter Care Teams Junior Account Executive Relationship Specialty Start Date End Date Pat Juan FNP [address] [place] [address] PCP - General Family Medicine 05/04/22 documented as of this encounter
--- OUTSIDE RECORDS SUMMARY | 2025-09-09 16:11 | XMS_ITS | Encounter Summary ---
Author Organization [employer] Address [address] [facility] 7t [place] [address] Care Team Providers Care Lab Animal Technologist Name Role Phone [facility] Primary Care Provider [phone] Reason for Visit * Reason Comments Med Refill Encounter Details Date Type Department Care Team ([facility] st Contact Info) Description 04/14/2024 Refill [facility] 230 [place], [place] [phone] [facility] 230 [place], [place] [phone] Depressive disorder Social History Tobacco Use Types [...] Description 09/30/2025 10:00 AM EST Office Visit [facility] MED[facility] [address] [place] [address] BagdadPat giraldo FNP 230 [place] [address] documented as of this encounter Visit Diagnoses Diagnosis Depressive disorder Depressive disorder, not elsewhere classified documented in this encounter Additional Health Concerns Assessment Noted Time PHQ-9 Depression Total Score: 0 03/19/20 24 8:51 AM EDT documented as of this encounter Care Teams Lab Animal Technologist Relationship Specialty Start Date End Date Pat Juan FNP 230 [place] [address] PCP - General Family Medicine 05/04/22 documented as of this encounter
--- OUTSIDE RECORDS SUMMARY | 2025-09-09 16:11 | XMS_ITS | Encounter Summary ---
Author Organization [employer] Address [address] [facility] 7t [place] [address] Care Team Providers Care Interlocking Installer Name Role Phone Pat Juan CIRCUS TRAINER Primary Care Provider [phone] Encounter Details Date Type Department Care Team (Late st Contact Info) Description 04/17/2024 Orders Only [facility] MED[facility]INE 230 [place], [place] [phone] Lori Werner MD 230 [place], [place] [phone] Social History Tobacco Use Types Packs/Day Years [...] 10:00 AM EST Office Visit [facility] MED[facility]INE [address] [place] [address] Pat Juan FNP 230 [place] [address] documented as of this encounter Visit Diagnoses Not on filedocumented in this encounter Additional Health Concerns Assessment Noted Time PHQ-9 Depression Total Score: 0 03/19/20 24 8:51 AM EDT documented as of this encounter Care Teams Interlocking Installer Relationship Specialty Start Date End Date Pat Juan FNP [address] [place] [address] PCP - General Family Medicine 05/04/22 documented as of this encounter
--- OUTSIDE RECORDS SUMMARY | 2025-09-09 16:11 | XMS_ITS | Encounter Summary ---
Author Organization [employer] Address [address] [facility] 7t [place] [address] Care Team Providers Care Real Estate Sales Supervisor Name Role Phone [place] [facility] Primary Care Provider [phone] Reason for Visit * Reason Comments Med Refill Encounter Details Date Type Department Care Team ([facility] st Contact Info) Description 01/02/2024 Refill [facility] MEDICINE 230 [place], [place] [phone] [facility] 230 [place], [place] [phone] Tingling of both feet; Depressive disorder Social [...] Description 09/30/2025 10:00 AM EST Office Visit [facility] MEDICINE 230 [place] [address] [facility] 230 [place] [address] documented as of this encounter Visit Diagnoses Diagnosis Tingling of both feet Depressive disorder Depressive disorder, not elsewhere classified documented in this encounter Additional Health Concerns Assessment Noted Time PHQ-9 Depression Total Score: 0 12/17/19 24 9:18 AM EDT documented as of this encounter Care Teams Real Estate Sales Supervisor Relationship Specialty Start Date End Date Pat Juan FNP [address] [place] [address] PCP - General Family Medicine 05/04/22 documented as of this encounter
--- OUTSIDE RECORDS SUMMARY | 2025-09-09 16:11 | XMS_ITS | Patient Health Record ---
Author Organization [employer] Address [address] [place] [address] Care Team Providers Care Turntable Man Name Role Phone Pedro Luis Duvall Unavailable [phone] Reason For Referral No Information Plan Of Treatment No Information
--- OUTSIDE RECORDS SUMMARY | 2025-09-09 16:11 | XMS_ITS | Encounter Summary ---
Author Organization [employer] Address [address] [facility] 7t [place] [address] Care Team Providers Care Breakfast Host Name Role Phone [facility] Primary Care Provider [phone] Reason for Visit * Reason Comments Med Refill Encounter Details Date Type Department Care Team ([facility] st Contact Info) Description 10/15/2024 Refill [facility] MED[facility]INE 230 [place], [place] [phone] [facility] 230 [place], [place] [phone] Depressive disorder Social History Tobacco Use Types [...] Description 09/30/2025 10:00 AM EST Office Visit [facility] [address] [place] [address] [place] FNP [address] [place] [address] documented as of this encounter Visit Diagnoses Diagnosis Depressive disorder Depressive disorder, not elsewhere classified documented in this encounter Additional Health Concerns Assessment Noted Time PHQ-9 Depression Total Score: 0 03/19/20 24 8:51 AM EDT documented as of this encounter Care Teams Breakfast Host Relationship Specialty Start Date End Date Pat Juan FNP [address] [place] [address] PCP - General Family Medicine 05/04/22 documented as of this encounter
== END 2025-09-09 12:16 | disposition home or self-care (01) ==
LOC: HO.MAMMO 12:15
PROVIDERS: PCP Registered Nurse; Visit Provider Registered Nurse
DX: Z12.31 Encounter for screening mammogram for malignant neoplasm of breast (principal)
CPT/HCPCS: 77063; 77067

== ENCOUNTER → 2025-09-09 13:00 | Outpatient (BNV) | payer MEDICARE, SELFPAY | PROVIDERS: PCP Registered Nurse; Visit Provider Radiology Body Imaging | DX: Z12.31 Encounter for screening mammogram for malignant neoplasm of breast (principal) | CPT/HCPCS: 77063; 77067 ==

== ENCOUNTER 2025-09-16 12:27 | Outpatient (AMB) | payer MEDICARE, SELFPAY ==
--- NOTE | 2025-09-16 12:30 | A.OFFVIS_ITS ---
Vital Signs 09/16/25 12:35 Height 4 ft 11.84 in Weight 141 lb 8.588 oz BMI 27.8 BP 130/84 Blood Pressure Location Rt brachial Position Sitting Pulse 57 Pulse Source Pulse Oximeter Pulse Oximetry (%) 97 Oxygen Delivery Method Room Air Intake Visit Reasons: Osteoporosis Intake Note: Patient presents today for oseotoporosis Sfdc Consultant Name: nasrin [email or web address] Information Interpreted: non-clinical & clinical Accompanied by: Self / Same As Patient Allergies morphine (MORPHINE) Allergy (Unknown, Verified 09/16/25 12:32) RASH HPI Comments Details: 74 YO Female with a PMHx Osteoporosis due to Hyperparathyroidism, now S/P 3.5 gland parathyroidectomy, as well as hyperthyroidism who is seen in F/U. She has a history of Osteoporosis with prior treatment with oral bisophosphonates as well as Prolia. She failed treatment with oral bisophosphonates and was switched to Prolia in April 2019. It appears she had 2 doses, the second April 2020. She was then diagnosed with primary hyperparathyroidism and underwent a subtotal parathyroidectomy (3.5 gland resection) with only a remnant of the R inferior gland remaining. This was completed 02/15/2021. Intraoperative PTH declined from 92 to 22, indicating cure. She does report prior fragility fracture of her R wrist and Clavicle. 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 She remains on Levothyroxine 50 mcg PO daily with TSH at goal. She reports anxiety, but otherwise states she feels well. She has no other complaints today. DEXA: 05/11/2023 FINDINGS: LEFT FEMUR, NECK: Current: BMD 0.655 g/cm2, Z-score -0.7, T-score -2.8, osteoporosis. Prior: BMD 0.687 g/cm2. Baseline: BMD 0.707 g/cm2. LEFT FEMUR, TOTAL: Current: BMD 0.695 g/cm2, Z-score -0.6, T-score -2.5, osteoporosis, 7.6% decrease from previous, 15.8% decrease from baseline (<5% change is not significant). Prior: BMD 0.752 g/cm2. Baseline: BMD 0.825 g/cm2. AP SPINE L1-L3 (excluding L4): The data of L1-L4 has been changed to exclude the L4 vertebral body, because degenerative sclerosis at this level may cause overestimation of lumbar spine density. Current: BMD 0.660 g/cm2, Z-score -2.3, T-score -4.3, osteoporosis, 11.2% decrease from previous, 16.1% decrease from baseline (<5% change is not significant). Prior: BMD 0.743 g/cm2. Baseline: BMD 0.787 g/cm2. LEFT FOREARM RADIUS 33%: BMD 0.596 g/cm2, Z-score -1.0, T-score -3.2, osteoporosis, 1.7% increase from baseline (<5% change is not significant). Baseline: BMD 0.586 g/cm2. IDENTIFIED RISK FACTORS: Early menopause, secondary osteoporosis, hysterectomy, bilateral oophorectomy, height loss, history of fracture (adult), hyperparathyroidism, low calcium intake. Labs: Laboratory Tests 03/22/23 03/22/23 15:38 15:38 Creatinine 0.89 Estimated GFR > 60 Calcium 10.1 D Albumin 4.4 TSH 1.43 Free T4 0.89 PTH Intact 55 Calcium (PTH Intact) 9.6 Taking calcium and vitamin D. and Evenity started in 12/2023, No fx since last visit . On Tymlos since 05/17/2024 . Could not tolerate Evenity . Tymlos course to end in 10/2025. Recent DEXA showed continued moderate to severe osteoporosis with T-score of-3.0 in the spine. [facility] Medical History Transaminitis Pulmonary nodules Allergies Kidney stone Back pain Arthritis HLD (hyperlipidemia) Hypothyroidism Diabetes Hypertension Asthma Hyperthyroidism Vitamin D deficiency Primary hyperparathyroidism Postablative hypothyroidism Surgical History History of craniotomy Hx of colonoscopy History of esophagogastroduodenoscopy (EGD) Hx of endoscopy S/P subtotal parathyroidectomy History of carpal tunnel release of both wrists Hx of cataract removal with insertion of prosthetic lens Hx of lithotripsy Hx of cholecystectomy Hx of hysterectomy Family History Father No problems noted. Mother No problems noted. Social History (Reviewed 09/16/25 @ 12:32 by Suzette Benson [facility] Household Members: Family Are you a primary palliative care nurse practitioner to a significant other at home: No Do you presently have visiting nurse or other home services: No Alcohol intake: never Patient Tobacco Use Status: Never used Tobacco Assessment & Plan Assessment & Plan (1) Osteoporosis: Code(s): M81.0 - Age-related osteoporosis without current pathological fracture Category: Medical Qualifiers: Osteoporosis type: age-related Presence of current pathological fracture: without current pathological fracture Qualified Code(s): M81.0 - Age- related osteoporosis without current pathological fracture Plan: 73-year-old female with a history of severe osteoporosis and primary hyperparathyroidism status post parathyroidectomy with normalization of PTH and calcium. Secondary workup was negative. Patient has received oral bisphosphonate, Prolia and more recently Reclast in the past. She had fragility fractures of right wrist and clavicle in the past. She is currently on Tymlos to end in 10/2025. DEXA showed stability but continued moderate to severe osteoporosis placing patient at high risk for fracture Plan is to continue Tymlos for full 18 month course and then transition to Prolia again ideally for a 2-3 year course transitioning then back to oral bisphosphonate if possible Coding Level of Care Code Est Pt Level 3 (66060) Diagnoses Age-related osteoporosis without current pathological fracture M81.0 Osteoporosis type: age-related Presence of current pathological fracture: without current pathological fracture
--- OUTSIDE RECORDS SUMMARY | 2025-09-16 12:30 | XMS_ITS | Encounter Summary ---
Author Organization [employer] Address [address] [facility] 7t [place] [address] Care Team Providers Care Physical Fitness Trainer Name Role Phone [facility] Primary Care Provider [phone] Reason for Visit * Reason Comments Med Refill Encounter Details Date Type Department Care Team ([facility] st Contact Info) Description 12/06/2023 Refill [facility]INE 230 [place], [place] [phone] [facility] 230 [place], [place] [phone] Depressive disorder Social History Tobacco Use Types [...] 10:00 AM EST Office Visit [facility] MEDICINE [address] [place] [address] Pat Juan FNP 230 [place] [address] documented as of this encounter Visit Diagnoses Diagnosis Depressive disorder Depressive disorder, not elsewhere classified documented in this encounter Additional Health Concerns Assessment Noted Time PHQ-9 Depression Total Score: 13 024 11:25 AM EST documented as of this encounter Care Teams Physical Fitness Trainer Relationship Specialty Start Date End Date Pat Juan FNP [address] [place] [address] PCP - General Family Medicine 05/04/22 documented as of this encounter
--- OUTSIDE RECORDS SUMMARY | 2025-09-16 12:30 | XMS_ITS | Encounter Summary ---
Author Organization [employer] Address [address] [facility] 7t [place] [address] Care Team Providers Care Annual Campaign Manager Name Role Phone [facility] Primary Care Provider [phone] Reason for Visit * Reason Comments Med Refill Encounter Details Date Type Department Care Team ([facility] st Contact Info) Description 11/08/2023 Refill [facility] MED[facility]INE 230 [place], [place] [phone] [facility] 230 [place], [place] [phone] Tingling of both feet Social History Tobacco [...] Description 09/30/2025 10:00 AM EST Office Visit [facility] MED[facility] 230 [place] [address] Pat Juan FNP 230 [place] [address] documented as of this encounter Visit Diagnoses Diagnosis Tingling of both feet documented in this encounter Additional Health Concerns Assessment Noted Time PHQ-9 Depression Total Score: 13 024 11:25 AM EST documented as of this encounter Care Teams Annual Campaign Manager Relationship Specialty Start Date End Date Pat Juan FNP 230 [place] [address] PCP - General Family Medicine 05/04/22 documented as of this encounter
--- OUTSIDE RECORDS SUMMARY | 2025-09-16 12:30 | XMS_ITS | Clinical Summary ---
Author Organization [employer] Address [address] [facility] [address] [place] [address] Care Team Providers Care Proofreader Name Role Phone Pat Juan [facility] Primary Care Provider [phone] Allergies Active Allergy Reactions Criticality Noted Date Comments Morphine Rash Low 03/24/2011 Other reaction(s): Rash Medications * This document contains information received from the source organization and may not represent a complete record from that organization. glucose blood (CostumeWorksTouch Ultra) test strip USE 1 STRIP by [...] 1 Active Blood Glucose Monitoring Suppl (FreeStyle [place] Lite) w/Device kitIndications:Pr ediabetes,Hypogly cemia Use to [...] EVERY DAY WITH FOOD 90 tablet 2 09/09/20 25 4:06 PM EST 025 Active meloxicam (Mobic) 7.5 MG tabletIndications :Muscle spasm TAKE 1 TABLET BY MOUTH EVERY DAY 30 tablet 025 Active Trelegy Ellipta 200-62.5-25 MCG/ACT aerosol powder 025 Active hydroCHLOROthiazi de 12.5 MG tablet Active mirtazapine (Remeron Eliana-Tab) 45 MG disintegrating tabletIndications :Depressive disorder TAKE 1 TABLET BY MOUTH DAILY AT BEDTIME 30 tablet 3 09/09/20 25 4:07 PM EST 025 Active citalopram (CeleXA) 20 [...] BY MOUTH EVERY DAY 30 tablet 4 09/09/20 25 4:06 PM EST 025 Active cyanocobalamin (Vitamin B-12) 1000 MCG tabletIndications :Tingling of both feet TAKE 1 TABLET BY MOUTH EVERY MORNING 30 tablet 3 09/09/20 25 4:07 PM EST 025 Active LORazepam (Ativan) 0.5 MG tabletIndications :Situational anxiety Take 1 tablet by oral route 30 minutes before flight 4 tablet 08/14/20 25 12:14 PM EST 025 Active zolpidem (Ambien) 10 MG tabletIndications :Depressive disorder TAKE 1 TABLET BY MOUTH DAILY AT BEDTIME 28 tablet 09/09/20 25 4:07 PM EST 025 Active zolpidem (Ambien) 10 [...] if develop fever or symptoms worsen Meningioma ([facility]/HCC) 03/18/2024 Mild anxiety 01/04/2024 Chronic idiopathic constipation 05/05/2023 Overview (05/05/2023): Followed by [facility] Linzess Numbness and tingling in left [...] reflux disease 06/02/2013 Overview (10/10/2024): Followed by [facility] Negative EGD 2021 Pantoprazole Pt seen [...] oxygen 2L PRN albuterol Followed by pulmonology [facility] Assessment & Plan (02/03/2025 4:57 PM EDT): Now stable continue with same interventions Assessment & Plan (10/30/2024 10:58 AM EST): Mild exacerbation due to Covid infection. Increase Symbicort to Que 6 hours prn SOB/cough. FU with Bee Producer. Assessment & Plan (08/18/2024 11:43 AM EST): [...] Encounters Date Type Department Care Team Description 09/16/2025 Patient Outreach [facility] [address] [place] [phone] Pat Juan FNP Pre-visit Planning (SDOH screening completed on 03/18/2025) 08/27/2025 Refill [facility] [address] [place] [phone] Pat Juan FNP Depressive disorder 08/10/2025 11:00 AM EST Office Visit [address] [address] Sharon Camacho FNP Acute gastroenteritis (Primary Dx); Anxiety; Hospital discharge follow-up 08/10/2025 Telephone [facility] [address] [place] [phone] Pat Juan FNP Care Coordination 08/10/2025 Orders Only [facility] [address] [place] [phone] Pat Juan FNP Situational anxiety (Primary Dx) 08/10/2025 Refill [facility] [address] [place] [phone] Pat Juan FNP Tingling of both feet 08/10/2025 Travel 08/10/[address] [address] Pat Juan FNP Appt r/s 08/06/[address] [address] Pat Juan FNP 08/04/2025 Telephone [facility] [address] [place] [address] Rochelle Horn RN NTTS f/up 08/03/2025 Orders Only GENERIC EXTERNAL DATA DEPARTMENT Provider, Generic External Data 07/31/2025 Refill [facility] [address] [facility] [place] [address] BurbankPat [facility] Depressive disorder 07/27/2025 Refill [facility] [address] [place] [address] BurbankPat [facility] 07/13/2025 Refill [facility] [address] [place] [phone] Pat Juan [facility] Chronic nonintractable headache, unspecified headache type; Primary hypertension 07/08/2025 Refill [facility] [address] [place] [address] Olivia Ramirez MD Depressive disorder 07/03/2025 Results Follow-Up [facility] [address] [place] [phone] Pat Juan [facility] POCT Glucose, POCT Hgb A1c, Comprehensive Metabolic Panel, Additional followed-up results: 3 07/01/2025 Telephone [facility] [place] [address] BurbankPat giraldo [facility] Care Coordination 06/29/2025 10:30 AM EDT Office Visit [address] [address] Pat Juan [facility] Essential hypertension (Primary Dx); Type 2 diabetes mellitus without complication, without long-term current use of insulin (HCC); Encounter for immunization; Depressive disorder 06/29/2025 Travel 06/19/2025 Patient Outreach [facility] [place] [address] Pat Juan FNP Pre-visit Planning ([facility] screening completed on 03/18/2025) from Last 3 Months Immunizations Immunization Administration [facility] [address] [place] [address] [facility] [address] [place] [address] Health Maintenance Due Date Last Done Comments [...] Procedure Name Priority Date/Time Associated Diagnosis Comments BI MAMMOGRAM SCREENING TOMOSYNTHESIS BILATERAL Routine 09/09/2025 1:02 PM EST XR DEXA APPENDICULAR SKELETON Routine 08/07/2025 12:30 [...] current use of insulin (HCC) POCT GLUCOSE (CPT-57516) Routine 06/29/2025 10:52 AM EDT Type 2 diabetes mellitus without complication, without long-term current use of insulin (HCC) HEPATITIS C AB W/REFL TO HCV RNA, QN, PCR Routine 01/31/2023 4:01 PM EDT Healthcare maintenance HM COLONOSCOPY Routine 08/24/2022 from Last 3 Months or Most Recently Relevant to Health Maintenance Results * BI Mammogram Screening Tomosynthesis Bilateral (09/09/2025 1:02 PM EST) Anatomical Region Laterality Modality Breast Bilateral Mammography 09/09/2025 1:02 PM EST Narrative 09/13/2025 10:41 AM EST [place] [facility] [address] [place] [address] Mammography Report Signed Patient: Hedy Davis MR#: [id number] 89 : 1950 Acct:[id number] Age/Sex: 74 / F ADM Date: 09/09/25 Loc: HO.MAMMO Attending Dr: Pat Juan CROSSBOW MAKER Ordering Physician: Pat Juan Results: 1Nega tive Date of Service: 09/09/25 Follow Up: 1 Year From [facility] Mammogram Procedure(s): MM tomosynthesis screening BI Accession Number(s): [id number] cc: Pat Juan [employer] Reason For Exam: Z12.31 EXAMINATION: MM SCREENING DIGITAL BREAST TOMOSYNTHESIS, BILATERAL CLINICAL INFORMATION: Screening. Asymptomatic. COMPARISON: Comparison made to multiple prior, most recent September 03, 2024, and most remote March 21, 2018. TECHNIQUE: Digital breast tomosynthesis is performed in mediolateral oblique and craniocaudal views along with computer-aided detection (CAD). Synthesized 2D images are generated from the tomosynthesis. FINDINGS: BREAST COMPOSITION: There are scattered areas of fibroglandular density. BILATERAL BREASTS: No significant masses, suspicious calcifications or other abnormalities are seen in either breast. MM/MM tomosynthesis screening BI IMPRESSION: BILATERAL BREASTS: Negative, no mammographic evidence of malignancy. Normal interval follow-up is recommended in 12 months. ASSESSMENT: BI-RADS: Category 1: Negative RECOMMENDATION: Routine annual mammography screening. FOLLOW-UP: 1 year F/U This examination should not preclude the clinical evaluation of a suspicious palpable abnormality. This patient's information was entered into a reminder system with a target due date for their next mammogram. Electronically signed by: Yash Land MD 09/13/2025 10:38 AM EST Dictated By: Yash Land MD Signed By: <Electronically signed by Yash Land MD in OV> 09/13/25 1038 DD/ 1302 TD/TT: 09/09/25 1313 Model Maker Firearms: Procedure Note Donotuseinterpreter, Image - [facility] [address] [place] [address] Mammography Report Signed Patient: Martín Davis#: [id number] [birth year] : 9Acct:[id number] Age/Sex: 74 / FADM Date: 09/09/25 Loc: PIERREO Attending Dr: Pat GONZALEZ Ordering Physician: Pat JuanPResults: 1Nega tive Date of Service: 09/09/25Follow Up: 1 Year From Orig inal Mammogram Procedure(s): MM tomosynthesis screening BI Accession Number(s): [id number] cc: Pat Juan Reason For Exam: Z12.31 EXAMINATION: MM SCREENING DIGITAL BREAST TOMOSYNTHESIS, BILATERAL CLINICAL INFORMATION: Screening. Asymptomatic. COMPARISON: Comparison made to multiple prior, most recent September 03, 2024, and most remote March 21, 2018. TECHNIQUE: Digital breast tomosynthesis is performed in mediolateral oblique and craniocaudal views along with computer-aided detection (CAD). Synthesized 2D images are generated from the tomosynthesis. FINDINGS: BREAST COMPOSITION: There are scattered areas of fibroglandular density. BILATERAL BREASTS: No significant masses, suspicious calcifications or other abnormalities are seen in either breast. MM/MM tomosynthesis screening BI IMPRESSION: BILATERAL BREASTS: Negative, no mammographic evidence of malignancy. Normal interval follow-up is recommended in 12 months. ASSESSMENT: BI-RADS: Category 1: Negative RECOMMENDATION: Routine annual mammography screening. FOLLOW-UP: 1 year F/U This examination should not preclude the clinical evaluation of a suspicious palpable abnormality. This patient's information was entered into a reminder system with a target due date for their next mammogram. Electronically signed by: Yash Land MD 09/13/2025 10:38 AM EST RP Dictated By: Yash Land MD Signed By: <Electronically signed by Yash Land MD in OV> 09/13/25 1038 DD/ 1302 TD/TT: 09/09/25 1313 Model Maker Firearms: [facility] IMG BI PROCEDURES Final Resul t * XR DEXA APPENDICULAR SKELETON (08/07/2025 12:30 PM EST) Anatomical Region Laterality Modality Abdomen Radiographic Nohemi ging 08/07/2025 12:3 0 PM EST Narrative 08/07/2025 4:42 PM EST [facility] [address] [place] [address] Mammography Report Signed Patient: Hedy Davis MR#: [id number] [birth year] : 1950 Acct:[id number] Age/Sex: 74 / F ADM Date: 08/07/25 Loc: BRIAN.MAMMO Attending Dr: Pedro Luis Molina MD Ordering Physician: Pedro Luis Molina MD Results: Date of Service: 08/07/25 Follow Up: Procedure(s): XR DEXA appendicular skeleton Accession Number(s): [id number] cc: Pedro Luis Molina MD; [facility] Reason For Exam: M81.0 - Age-related osteoporosis without current pathological fracture EXAMINATION: DXA BONE DENSITY EXTREMITY HISTORY: M81.0 - Age-related osteoporosis without current pathological fracture TECHNIQUE: Hashdoc Dual energy absorptiometry (DEXA) of the lumbar [...] of the [employer] [place] for Metabolic Bone Disease, a World Health Organization (WHO) Collaborating Center. Electronically signed by: Belén Hui MD 08/07/2025 04:39 PM [facility] Dictated By: Belén Hui MD Signed By: <Electronically signed by Belén Hui MD in OV> 08/07/25 1639 DD/ 1230 TD/TT: 08/07/25 1245 Model Maker Firearms: TORIE Procedure Note Donotuseinterpreter, Image - 08/07/[address] [place] [facility] [address] [place] [address] Mammography Report Signed Patient: Martín Davis#: [id number] [birth year] : 1950cct:[id number] Age/Sex: 74 / FADM Date: 08/07/25 Loc: HO.MAMMO Attending Dr: Pedro Luis Molina MD Ordering Physician: Pedro Luis Molina MDResults: Date of Service: 08/07/25Follow Up: Procedure(s): XR DEXA appendicular skeleton Accession Number(s): [id number] cc: [facility] Reason For Exam: M81.0 - Age-related osteoporosis without currentpathological fracture EXAMINATION: DXA BONE DENSITY EXTREMITY HISTORY: M81.0 - Age-related osteoporosis without current pathological fracture TECHNIQUE: Hashdoc Dual energy absorptiometry (DEXA) of the lumbar [...] of the [employer] [place] for Metabolic Bone Disease, a World Health Organization (WHO) Collaborating Center. Electronically signed by: Belén Hui MD 08/07/2025 04:39 PM EST Dictated By: Belén Hui MD Signed By: <Electronically signed by Belén Hui MD in OV> 08/07/25 1639 DD/ 1230 TD/TT: 08/07/25 1245 Model Maker Firearms: TORIE [facility] External Provider IMG XR PROCEDURES Final Result * XR ACUTE ABDOMEN SERIES (08/03/2025 11:38 PM EST) Anatomical Region Laterality Modality Abdomen Radiographic Nohemi ging 08/03/2025 11:3 8 PM EST Narrative 08/03/2025 11:[address] [address] XRay Report Signed Patient: Hedy Davis MR#: [id number] [birth year] : 1950 Acct:[id number] Age/Sex: 74 / F ADM Date: 08/03/25 Loc: HO.ED Attending Dr: Ordering Physician: Shi Mak DO Date of Service: 08/03/25 Procedure(s): XR acute abdomen series Accession Number(s): [id number] cc: Shi Mak DO; [facility] Reason for Exam: abd pain, vomiting CLINICAL [...] in OV> 08/03/252337 DD/ 37 TD/TT: 08/03/252337 Model Maker Firearms: Procedure Note Donotuseinterpreter, Image - 08/03/[address] [address] XRay Report Signed Patient: Hedy DavisMR#: [id number] [birth year] : 1950cct:[id number] Age/Sex: 74 / FADM Date: 08/03/25 Loc: HO.ED Attending Dr: Ordering Physician: Shi Mak DO Date of Service: 08/03/25 Procedure(s): XR acute abdomen series Accession Number(s): [id number] cc: Shi Mak DO; [facility] Reason for Exam: abd pain, vomiting CLINICAL [...] in OV> 08/03/252337 DD/ 37 TD/TT: 08/03/252337 Model Maker Firearms: [facility] External Provider IMG XR PROCEDURES Edited Result - Final * High Sensitivity Troponin I (08/03/2025 8:23 PM EST) [facility] TROPONIN I HIGH SENSITIVITY <2.7 <3.5 - 17.0 ng/L [facility] Comment:The [place] high sens itivity Troponin-I results should beused in conjunction with other diagnostic information suchas ECG, clinical observations and information, and patientsymptoms to aid in the diagnosis of AR. 08/03/2025 8:23 PM EST 08/03/2025 8:26 PM EST Generic External Data Provider LAB BLOOD ORDERAB LES Final Result [facility] [address] [place] [phone] * SARS-CoV-2 RNA, Influenza A/B, and RSV RNA, Ql NAAT (08/03/2025 8:23 PM EST) [facility] Influenza A PCR NEGATIVE Negative [facility] Influenza B PCR NEGATIVE Negative [facility] Resp Syncy Virus RNA Qual PCR NEGATIVE Negative [facility] SARS COV2 PCR NEGATIVE Negative [facility] Comment:All test results mus t [...] use by authorized laboratories.Testing performed on the [employer]afi GeneXpert utilizingreal-time RT-PCR.All SARS CoV2 and positive influenza A/B results arereported to [facility]. 08/03/2025 8:23 PM EST 08/03/2025 8:26 PM EST us Generic External Data Provider LAB MICROBIOLOGY - GENERAL ORDERABLES Final Result [facility] [address] [place] [phone] * (ABNORMAL) CBC auto differential (08/03/2025 8:23 PM EST) Only the most recent of2 resultswithin the time period is included. Pathologist [facility] White Blood Count 7.2 4.8 - 10.8 X10*3/uL [facility] Red Blood Count 4.17(L) 4.20 - 5.50 X10*6/uL [facility] Hemoglobin 13.2 12.0 - 16.0 g/dl [facility] Hematocrit 40.2 37.0 - 47.0 % [facility] Mean Corpuscular Volume 96.4 80.0 - 98.0 fL [facility] Mean Corpuscular Hemoglobin 31.7 27.0 - 33.0 pg [facility] Mean Corpuscular HGB Conc 32.8 31.0 - 35.0 g/dl [facility] Red Cell Distribution Width 14.1 11.0 - 16.0 % [facility] Platelet Count 253 160 - 400 X10*3/uL [facility] Mean Platelet Volume 10.6 9.4 - 12.3 fL [facility] Neutrophils Percent Auto 70.2 45 - 73 % [facility] Imm Gran Pct Auto 0.1 0.0 - 0.4 % [facility] Lymphocytes Percent Auto 21.0 20 - 40 % [facility] Monocytes Percent Auto 6.2 2 - 11 % [facility] Eosinophils Percent Auto 1.9 0 - 4 % [facility] Basophils Percent Auto 0.6 0 - 2 % [facility] NRBC Pct Auto 0.0 0.0 - 0.2 /100WBC [facility] Neutrophils Absolute Auto 5.1 2.0 - 8.3 x10*3/uL [facility] Imm Gran Abs Auto 0.01 0.00 - 0.03 X10*3/uL [facility] Lymphocytes Absolute Auto 1.5 1.2 - 4.9 X10*3/uL [facility] Monocytes Absolute Auto 0.5 0.1 - 1.2 X10*3/uL [facility] Eosinophils Absolute Auto 0.1 0.0 - 0.4 X10*3/uL [facility] Basophils Absolute Auto 0.0 0.0 - 0.2 X10*3/uL [facility] NRBC Abs Auto 0.000 0.0 - 0.012 X10*3/uL [facility] 08/03/2025 8:23 PM EST 08/03/2025 8:26 PM EST us Generic External Data Provider LAB BLOOD ORDERAB LES Final Result [facility] [address] [place] [phone] * Magnesium (08/03/2025 8:23 PM EST) Magnesium 2.2 1.6 - 2.6 mg/dL [facility] 08/03/2025 8:23 PM EST 08/03/2025 8:26 PM EST us Generic External Data Provider LAB BLOOD ORDERAB LES Final Result [facility] [address] [place] [address] [phone] * (ABNORMAL) Comprehensive Metabolic Panel (08/03/2025 8:23 PM EST) Only the most recent of2 resultswithin the time period is included. Sodium 146(H) 135 - 145 mmol/L [facility] Potassium 4.4 3.3 - 5.1 mmol/L [facility] Chloride 107 96 - 108 mmol/L [facility] Carbon Dioxide 27 22 - 29 mmol/L [facility] Anion Gap 16 12 - 20 [facility] Urea Nitrogen (BUN) 18(H) 9 - 16 mg/dL [facility] Creatinine, Serum 0.93 0.5 - 1.4 mg/dL [facility] Creatinine Clr Calc Pharmacy 46.2 [facility] Comment:Provided height and weight: 157.48 cm,67.3 kg.eGFR (calculated from the MDRD study equation) and eCrCl(calculated from the Cockcroft-Gault equation) are based ondifferent parameters and may not yield comparable results.If eCrCl result is absurd, please check patient'sheight/weight. Estimated Glomerular Filt Rate 59 [facility] Comment:Chronic Kidney Disea se: Estimated GFR < 60 mL/min/1.64x4Gnugic Kidney Disease: Estimated GFR < 15 mL/min/1.73m2 Glucose 110 60 - 115 mg/dL [facility] Calcium 9.6 8.4 - 10.2 mg/dL [facility] Bilirubin, Total 0.7 0.0 - 1.0 mg/dL [facility] Aspartate Amino Transferase 34(H) 5 - 31 U/L [facility] Alanine Aminotransferase 38(H) 0 - 31 U/L [facility] Total Protein 7.9 6.5 - 8.0 g/dL [facility] Albumin Level 4.7 3.5 - 5.0 g/dL [facility] Alkaline Phosphatase 78 39 - 117 U/L [facility] 08/03/2025 8:23 PM EST 08/03/2025 8:26 PM EST Generic External Data Provider LAB BLOOD ORDERAB LES Final Result Performing Organization Address [facility] Co de Phone Number [facility] [address] [place] [address] [phone] * Albumin, Random Urine W/Creatinine (06/30/2025 9:12 AM EDT) Creatinine, Urine 187.30 mg/dL [facility] Microalbumin Urine 8.0 mg/L [facility] Microalbum Creatinine Ratio Ur 4.2 <30 ug/mg cr [facility] Comment:Albumin/Creatinine R atio Reference Ranges: Normal: < 30 ug/mg creatinine Microalbuminuria: 30 - 300 ug/mg creatinineClinical Albuminuria: > 300 ug/mg creatinine Urine 06/30/2025 9:12 AM EDT 06/30/2025 11:13 AM EDT [facility] CROSSBOW MAKER LAB URINE ORDERABLES Final Re sult Performing Organization Address [facility] Co de Phone Number [facility] [address] [place] [address] [phone] * Lipid Panel, Standard (06/30/2025 9:12 AM EDT) Triglycerides 116 <150 mg/dL [facility] Comment:Desirable Triglyceri de: less than 150 mg/dLBorderline High Triglyceride 150-199 mg/dLHigh Triglyceride: 200-499 mg/dLVery High Triglyceride: greater than or equal to 5OO mg/dL Cholesterol 141 <200 mg/dL [facility] Comment:Desirable Cholestero l: less than 200 mg/dLBorderline High Cholesterol: 200-239 mg/dLHigh Cholesterol: greater than 239 mg/dL LDL Cholesterol Calculated 70 <100 mg/dL [facility] Comment:Desirable LDL: less than 100 mg/dLNear Optimal/Above Optimal LDL: 110- 129 mg/dLBorderline High LDL: 130-159 mg/dLHigh LDL: 160-189 mg/dLVery High LDL: greater than or equal to 190 mg/dL HDL Cholesterol 48 >40 mg/dL [facility] Comment:Desirable HDL: great er than 40 mg/dL Note: This HDL assay may give artificially low results in patients with liver disease. Blood Venous blood specimen / Unknown 06/30/2025 9:12 AM EDT 06/30/2025 11:15 AM EDT [facility] LAB BLOOD ORDERABLES Final Re sult [facility] [address] [place] [phone] * POCT Hgb A1c (06/29/2025 10:52 AM EDT) Hemoglobin A1C 5.6 4.0 - 5.7 % QC Media Lot # [id number] Lot# Expiration Date Blood 06/29/2025 10:5 2 AM EDT [facility] POINT OF CARE TEST ENTER/EDIT ORDERABLES Final Result * POCT Glucose (06/29/2025 10:52 AM EDT) Glucose Blood, POC 127 60 - 200 mg/dL [employer] Lot # [id number] Lot# Expiration Date Blood Capillary blood specimen / Unknown 06/29/2025 10:52 AM EDT [facility] POINT OF CARE TEST ENTER/EDIT ORDERABLES Final Result * Hepatitis C Antibody with Reflex to HCV, RNA, Quantitative, Real-Time PCR (01/31/2023 4:01 PM EDT) Hepatitis C Antibody NON-REACT HERRERA NON-REACT HERRERA [employer] [place] bulletn.t Index 0.09 <1.00 [employer] [place] One Block Off the Grid (1BOG) Comment: HCV antibody was non-reactive. There is no laboratory evidence of HCV infection. In most cases, no further action is required. However, if recent HCV exposure is suspected, a test for HCV RNA (test code 46845) is suggested. For additional information please refer to http://education.g4interactive/faq/DOS80a8 (This link is being provided for informational/ educational purposes only.) Blood Venous blood specimen / Unknown 01/31/2023 4:01 PM EDT 01/31/2023 4:01 PM EDT [facility] LAB BLOOD ORDERABLES Final Re sult [facility] [address], [place] [address] [employer] [place] bulletn.t [address] [place] [address] * Hm Colonoscopy (08/24/2022) Pathologist [facility] Colonoscopy Normal Normal Comment:[facility] - negative 08/24/2022 Historical Provider HEALTH MAINTENANCE Final Result from Last 3 Months or Most Recently Relevant to Health Maintenance Insurance [employer] MEDICARE REPLACEMENT HSN PARTIAL Care Teams Proofreader Relationship Specialty Start Date End Date Pat Juan FNP [address] [place] [id number] PCP - General Family Medicine 05/04/22
--- OUTSIDE RECORDS SUMMARY | 2025-09-16 12:30 | XMS_ITS | Encounter Summary ---
Author Organization [employer] Address 75 [facility] 7t [place] [address] Care Team Providers Care Sample Weaver Name Role Phone [facility] Primary Care Provider [phone] Reason for Visit * Reason Comments Med Refill Encounter Details Date Type Department Care Team ([facility] Contact Info) Description 11/06/2022 Refill [facility] CHC MED & PEDS [address] [place], [place] [phone] [facility] [address] [place], [place] [phone] Depressive disorder Social History Tobacco Use Types [...] Description 09/30/2025 10:00 AM EST Office Visit [facility] MEDICINE [address] [place] [phone] [facility] [address] [place], [place] [phone] documented as of this encounter Visit Diagnoses Diagnosis Depressive disorder Depressive disorder, not elsewhere classified documented in this encounter Additional Health Concerns Assessment Noted Time PHQ-9 Depression Total Score: 0 10/24/19 23 10:40 AM EST documented as of this encounter Care Teams Sample Weaver Relationship Specialty Start Date End Date [place] CARLOS Stewart [address] [place] [address] PCP - General Family Medicine 05/04/22 documented as of this encounter
--- OUTSIDE RECORDS SUMMARY | 2025-09-16 12:30 | XMS_ITS | Encounter Summary ---
Author Organization [employer] Address 75 [facility] 7t [place] [address] Care Team Providers Care Resident Services Supervisor Name Role Phone [facility] Primary Care Provider [phone] Reason for Visit * Reason Comments Med Refill Encounter Details Date Type Department Care Team ([facility] st Contact Info) Description 10/15/2024 Refill [facility] MEDICINE [address] [place], [place] [phone] [facility] 230 [place], [place] [phone] Depressive disorder Social History Tobacco Use Types [...] Description 09/30/2025 10:00 AM EST Office Visit [facility] MEDICINE [address] [place] [address] [place] g[place] FNP [address] [place] [address] documented as of this encounter Visit Diagnoses Diagnosis Depressive disorder Depressive disorder, not elsewhere classified documented in this encounter Additional Health Concerns Assessment Noted Time PHQ-9 Depression Total Score: 0 03/19/20 24 8:51 AM EDT documented as of this encounter Care Teams Resident Services Supervisor Relationship Specialty Start Date End Date Pat Juan FNP [address] [place] [address] PCP - General Family Medicine 05/04/22 documented as of this encounter
--- OUTSIDE RECORDS SUMMARY | 2025-09-16 12:30 | XMS_ITS | Encounter Summary ---
Author Organization [employer] Address 75 [facility] 7t [place] [address] Care Team Providers Care Home Health Nurse Licensed Practical Name Role Phone Pat Juan PAINTER ASSISTANT Primary Care Provider Reason for Visit * Reason Comments Med Refill Encounter Details Date Type Department Care Team (Late st Contact Info) Description 10/24/2023 Refill [facility] MEDICINE 230 [place], [place] [phone] Tracee Coulter ANP 230 [place], [place] [phone] Depressive disorder Social History Tobacco Use Types [...] 10:00 AM EST Office Visit [facility] MEDICINE 230 [place] [address] Pat Juan FNP [address] [place] [address] documented as of this encounter Visit Diagnoses Diagnosis Depressive disorder Depressive disorder, not elsewhere classified documented in this encounter Additional Health Concerns Assessment Noted Time PHQ-9 Depression Total Score: 0 07/18/20 23 9:27 AM EDT documented as of this encounter Care Teams Home Health Nurse Licensed Practical Relationship Specialty Start Date End Date Pat Juan FNP [address] [place] [address] PCP - General Family Medicine 05/04/22 documented as of this encounter
--- OUTSIDE RECORDS SUMMARY | 2025-09-16 12:30 | XMS_ITS | Patient Health Record ---
Author Organization [employer] Address [address] [place] [address] Care Team Providers Care Transmission Technician Name Role Phone Pedro Luis Duvall Unavailable [phone] Reason For Referral No Information Plan Of Treatment No Information
--- OUTSIDE RECORDS SUMMARY | 2025-09-16 12:30 | XMS_ITS | Encounter Summary ---
Author Organization [employer] Address 75 [facility] 7t [place] [address] Care Team Providers Care Oral Surgery Physician Name Role Phone [facility] Primary Care Provider [phone] Reason for Visit * Reason Comments Pre-visit Planning SDOH screening compl eted on 03/18/2025 Encounter Details Date Type Department Care Team ([facility] st Contact Info) Description 09/16/2025 Patient Outreach [facility] MEDICINE [address] [place], [place] [phone] [facility] 230 [place], [place] [phone] Pre-visit Planning (SDOH screening completed on 03/18/2025) Social History Tobacco Use Types Packs/Day Years Used Date Smoking Tobacco: Never Passive Smoke Exposure: Never Smokeless Tobacco: Never Alcohol Use Standard [...] as of this encounter Progress Notes * Nelly Owens - 09/16/2025 9:26 AM EST CC Nelly placed outbound call to patient to complete pre-visit planning. No answer at this time. Patient name and were not confirmed. CC unable to leave a voice message. documented in this encounter Plan of Treatment Upcoming Encounters Date Type Department Care Team (Late st Contact Info) Description 09/30/2025 10:00 AM EST Office Visit [facility] MEDICINE [address] [place] [address] Pat Juan FNP [address] [place] [address] documented as of this encounter Visit Diagnoses Not on filedocumented in this encounter Additional Health Concerns Assessment Noted Time PHQ-9 Depression Total Score: 0 03/25/20 25 11:20 AM EDT documented as of this encounter Care Teams Oral Surgery Physician Relationship Specialty Start Date End Date Pat Juan FNP [address] [place] [address] PCP - General Family Medicine 05/04/22 documented as of this encounter
--- OUTSIDE RECORDS SUMMARY | 2025-09-16 12:30 | XMS_ITS | Clinical Summary ---
Author Organization [address] [facility] Address [address] [place] [address] Phone Care Team Providers Care Supervisor Record Press Name Role Phone [facility] Primary Care Provider [phone] Allergies Active Allergy Reactions Criticality Noted Date [...] headaches which were treated with Fioricet in [place] but she has been unable to obtain it here. I will try again to order it for her from the [facility] pharmacy. Encounters Date Type Department Care Team Description 08/04/2025 Telephone Neurosurgery [facility] [address] [facility] [address] [place] [address] Saundra Ríos MD 07/21/2025 1:42 PM EDT - 07/21/2025 11:59 PM EDT Hospital Encounter [facility] MRI [address] [place] [address] Meningioma, cerebral ([facility] V24, [facility] V28) Discharge Disposition: Home or Self Care [...] HISTORICAL LITHOTRIPSY OTHER SURGICAL HISTORY 07/31/2023 PROCEDURE: NM CRNEC TREPHINE BONE FLAP MENINGIOMA SUPRATENTOR; COMMENT: [...] PM EST Sexual Orientation Not on file Last Filed Vital Signs Vital Sign Reading [...] Health Maintenance Due Date Last Done Comments Drug Screen 1950 Non-Opioid Controlled Substance Agreement 1950 Diabetes: Annual Foot Exam 1958 Diabetes: Annual [...] Signed Date: 07/24/2025 12:14 ET Workstation ID: [id number] Transcribed By: Self Edit Transcribed Date: 07/24/2025 [...] Signed Date: 07/24/2025 12:14 ET Workstation ID: [id number] Transcribed By: Self Edit Transcribed Date: 07/24/2025 12:10 ET Saundra Ríos MD IMG MRI PROCEDURES Final Result from Last 3 Months Insurance AETNA MEDICARE ADVANTAGE Care Teams Supervisor Record Press Relationship Specialty Start Date End Date [facility] [address] [place] [phone] PCP - General Family Medicine 07/28/24
--- OUTSIDE RECORDS SUMMARY | 2025-09-16 12:31 | XMS_ITS | Encounter Summary ---
Author Organization [employer] Address 75 [facility] 7t [place] [address] Care Team Providers Care Department Head [employer] Name Role Phone Pat Juan HELPER/DRIVER Primary Care Provider [phone] Encounter Details Date Type Department Care Team (Late st Contact Info) Description 04/17/2024 Orders Only [facility] MEDICINE [address] [place], [place] [phone] Lori Werner MD [address] [place], [place] [phone] Social History Tobacco Use Types Packs/Day Years [...] Description 09/30/2025 10:00 AM EST Office Visit [facility] MEDICINE [address] [place] [address] Pat Juan FNP [address] [place] [address] documented as of this encounter Visit Diagnoses Not on filedocumented in this encounter Additional Health Concerns Assessment Noted Time PHQ-9 Depression Total Score: 0 03/19/20 24 8:51 AM EDT documented as of this encounter Care Teams Department Head [employer] Relationship Specialty Start Date End Date Pat Juan FNP [address] [place] [address] PCP - General Family Medicine 05/04/22 documented as of this encounter
--- OUTSIDE RECORDS SUMMARY | 2025-09-16 12:31 | XMS_ITS | Encounter Summary ---
Author Organization [employer] Address 75 [facility] 7t [place] [address] Care Team Providers Care Computer Hardware Technician Name Role Phone [place] [facility] Primary Care Provider [phone] Reason for Visit * Reason Onset Date Comments Med Refill 02/29/2024 Encounter Details Date Type Department Care Team ([facility] st Contact Info) Description 02/29/2024 Telephone [facility] MEDICINE [address] [place], [place] [phone] [facility] [address] [place], [place] [phone] Med Refill Social History Tobacco Use Types [...] 10 MG tablet To be sent to: [facility] at [place], [place] - [address] [facility] documented in this encounter Plan of Treatment Upcoming Encounters Date Type Department Care Team (Late st Contact Info) Description 09/30/2025 10:00 AM EST Office Visit [facility] MEDICINE [address] [place] [address] Pat Juan FNP [address] [place] [address] documented as of this encounter Visit Diagnoses Not on filedocumented in this encounter Additional Health Concerns Assessment Noted Time PHQ-9 Depression Total Score: 7 01/04/20 24 8:14 AM EDT documented as of this encounter Care Teams Computer Hardware Technician Relationship Specialty Start Date End Date Pat Juan FNP [address] [place] [address] PCP - General Family Medicine 05/04/22 documented as of this encounter
--- OUTSIDE RECORDS SUMMARY | 2025-09-16 12:31 | XMS_ITS | Encounter Summary ---
Author Organization [employer] Address 75 [facility] 7t [place] [address] Care Team Providers Care Steward Dishwasher Name Role Phone [facility] Primary Care Provider [phone] Reason for Visit * Reason Comments Med Refill Encounter Details Date Type Department Care Team ([facility] st Contact Info) Description 04/14/2024 Refill [facility] MEDICINE [address] [place], [place] [phone] [facility] 230 [place], [place] [phone] Depressive disorder Social History Tobacco Use Types [...] Description 09/30/2025 10:00 AM EST Office Visit [facility] MEDICINE [address] [place] [address] [place] F[place] [address] [place] [address] documented as of this encounter Visit Diagnoses Diagnosis Depressive disorder Depressive disorder, not elsewhere classified documented in this encounter Additional Health Concerns Assessment Noted Time PHQ-9 Depression Total Score: 0 03/19/20 24 8:51 AM EDT documented as of this encounter Care Teams Steward Dishwasher Relationship Specialty Start Date End Date Pat Juan FNP [address] [place] [address] PCP - General Family Medicine 05/04/22 documented as of this encounter
--- OUTSIDE RECORDS SUMMARY | 2025-09-16 12:31 | XMS_ITS | Encounter Summary ---
Author Organization [employer] Address 75 [facility] 7t [place] [address] Care Team Providers Care Turner Off Name Role Phone [place] [facility] Primary Care Provider [phone] Reason for Visit * Reason Comments Med Refill Encounter Details Date Type Department Care Team ([facility] st Contact Info) Description 02/21/2024 Refill [facility] MEDICINE 230 [place], [place] [phone] [facility] 230 [place], [place] [phone] Depressive disorder Social History Tobacco Use Types [...] 10:00 AM EST Office Visit [facility] MEDICINE [address] [place] [address] Pat Juan FNP [address] [place] [address] documented as of this encounter Visit Diagnoses Diagnosis Depressive disorder Depressive disorder, not elsewhere classified documented in this encounter Additional Health Concerns Assessment Noted Time PHQ-9 Depression Total Score: 7 01/04/20 24 8:14 AM EDT documented as of this encounter Care Teams Turner Off Relationship Specialty Start Date End Date Pat Juan FNP [address] [place] [address] PCP - General Family Medicine 05/04/22 documented as of this encounter
--- OUTSIDE RECORDS SUMMARY | 2025-09-16 12:31 | XMS_ITS | Encounter Summary ---
Author Organization [employer] Address 75 [facility] 7t [place] [address] Care Team Providers Care Research And Development Researcher Name Role Phone [place] [facility] Primary Care Provider [phone] Reason for Visit * Reason Onset Date Comments Med Refill 01/21/2024 Encounter Details Date Type Department Care Team ([facility] st Contact Info) Description 01/21/2024 Telephone [facility] MEDICINE 230 [place], [place] [phone] [facility] 230 [place], [place] [phone] Med Refill Social History Tobacco Use Types [...] 11:57 AM EDT Medication was sent to [facility] on 11/26/23 #30 with 2 refills * Telephone Encounter - Eliana Varela - 01/21/2024 11:01 AM EDT TC from pt requesting medication refill. Medications needing refill : mirtazapine (Remeron SolTab) 45 MG disintegrating tablet To be sent to: [facility] at [place], [place] - [address] documented in this encounter Plan of Treatment Upcoming Encounters Date Type Department Care Team (Late st Contact Info) Description 09/30/2025 10:00 AM EST Office Visit [facility] MEDICINE [address] [place] [address] Pat Juan FNP [address] [place] [address] documented as of this encounter Visit Diagnoses Not on filedocumented in this encounter Additional Health Concerns Assessment Noted Time PHQ-9 Depression Total Score: 7 01/04/20 24 8:14 AM EDT documented as of this encounter Care Teams Research And Development Researcher Relationship Specialty Start Date End Date Pat Juan FNP [address] [place] [address] PCP - General Family Medicine 05/04/22 documented as of this encounter
--- OUTSIDE RECORDS SUMMARY | 2025-09-16 12:31 | XMS_ITS | Encounter Summary ---
Author Organization [employer] Address [address] [facility] 7t [place] [address] Care Team Providers Care Ems Helicopter Pilot Name Role Phone [place] [facility] Primary Care Provider [phone] Reason for Visit * Reason Comments Med Refill Encounter Details Date Type Department Care Team ([facility] st Contact Info) Description 01/02/2024 Refill [facility] MEDICINE 230 [place], [place] [phone] [facility] 230 [place], [place] [phone] Tingling of both feet; Depressive disorder Social [...] 09/30/2025 10:00 AM EST Office Visit [facility] MEDICINE 230 [place] [address] Pat Juan FNP [address] [place] [address] documented as of this encounter Visit Diagnoses Diagnosis Tingling of both feet Depressive disorder Depressive disorder, not elsewhere classified documented in this encounter Additional Health Concerns Assessment Noted Time PHQ-9 Depression Total Score: 0 12/17/19 24 9:18 AM EDT documented as of this encounter Care Teams Ems Helicopter Pilot Relationship Specialty Start Date End Date Pat Juan FNP [address] [place] [address] PCP - General Family Medicine 05/04/22 documented as of this encounter
--- OUTSIDE RECORDS SUMMARY | 2025-09-16 12:31 | XMS_ITS | Encounter Summary ---
Author Organization [employer] Address [address] [facility] [address] [place] [address] Care Team Providers Care Appointment Specialist Name Role Phone Pat Juan [facility] [employer] [facility] Primary Care Provider Encounter Details Date Type Department Care Team (Late st Contact Info) Description 08/09/2023 Abstract [facility] [address] [place], [place] [phone] Rhina Diez Social History Tobacco Use Types [...] 10:00 AM EST Office Visit [facility] [address] [place] [address] Pat Juan FNP [address] [place] [address] documented as of this encounter Visit Diagnoses Not on filedocumented in this encounter Additional Health Concerns Assessment Noted Time PHQ-9 Depression Total Score: 0 07/18/20 23 9:27 AM EDT documented as of this encounter Care Teams Appointment Specialist Relationship Specialty Start Date End Date Pat Juan FNP [address] [place] [id number] PCP - General Family Medicine 05/04/22 documented as of this encounter
--- OUTSIDE RECORDS SUMMARY | 2025-09-16 12:31 | XMS_ITS | Encounter Summary ---
Author Organization [employer] Address [address] [facility] [address] [place] [address] Care Team Providers Care Home Health Administrator Name Role Phone [place] [facility] Primary Care Provider [phone] Reason for Visit * Reason Onset Date Comments Med Refill 04/08/2025 Encounter Details Date Type Department Care Team ([facility] st Contact Info) Description 04/08/2025 Telephone [facility] [address] [place], [place] [phone] [facility] [address] [place], [place] [phone] Med Refill Social History Tobacco Use Types [...] MG disintegrating tablet To be sent to: [facility] [place], [place] - [address] [facility] documented in this encounter Plan of Treatment Upcoming Encounters Date Type Department Care Team (Late st Contact Info) Description 09/30/2025 10:00 AM EST Office Visit [facility] [address] [place] [address] [place], [employer] [address] [place] [address] documented as of this encounter Visit Diagnoses Not on filedocumented in this encounter Additional Health Concerns Assessment Noted Time PHQ-9 Depression Total Score: 0 03/25/20 25 11:20 AM EDT documented as of this encounter Care Teams Home Health Administrator Relationship Specialty Start Date End Date Pat Juan FNP [address] [place] [id number] PCP - General Family Medicine 05/04/22 documented as of this encounter
[2025-09-16 12:35] VITALS: BP 130/84; PULSE 57; O2SAT 97; BMI 27.8
== END 2025-09-16 12:59 | disposition home or self-care (01) ==
LOC: HO.ENCR 12:27
PROVIDERS: PCP Registered Nurse; Visit Provider Internal Medicine Endocrinology, Diabetes & Metabolism
DX: M81.0 Age-related osteoporosis without current pathological fracture (principal)
CPT/HCPCS: 99213

== ENCOUNTER → 2025-09-16 12:27 | Outpatient (BNVA) | payer MEDICARE, SELFPAY | PROVIDERS: PCP Registered Nurse; Visit Provider Internal Medicine Endocrinology, Diabetes & Metabolism | DX: M81.0 Age-related osteoporosis without current pathological fracture (principal); E21.0 Primary hyperparathyroidism; Z98.890 Other specified postprocedural states; Z87.310 Personal history of (healed) osteoporosis fracture | CPT/HCPCS: 99212 ==